=== PATIENT | female | born 1930 | race African-American/Black ===

== ENCOUNTER 2017-07-22 14:12 | Inpatient (IN) | payer OTHER ==
--- NOTE | 2017-07-22 15:48 | RAD REPORT ---
EXAM DESCRIPTION: RAD - Chest Single View - 07/22/2017 3:43 pm CLINICAL HISTORY: Chest pain. COMPARISON: 02/11/2015 FINDINGS: Portable technique limits examination quality. The lungs are mildly emphysematous but grossly clear. The heart is mildly enlarged in size. No displa nikita fractures. IMPRESSION: Mild COPD.
[2017-07-22 16:29] LABS: Absolute Lymphocytes (CBC) 0.7 K/uL (0.7-4.9); Absolute Monocytes 0.3 K/uL (0.1-1.3); Absolute Neutrophil 4.3 K/uL (1.8-8.0); Basophils % 0.5 % (0-1.3); Eosinophils % 0.6 % (0-4.4); Hematocrit 18.8 % (36.0-45.0); Lymphocytes % 13.9 % (15.3-44.8); MCH 31.3 pg (27.0-35.0); MCV 93.7 fL (80-100); MPV 9.1 fL (7.6-11.3); Monocytes % 5.1 % (3.3-12.3); RBC Red Blood Cell Count 2.01 M/uL (3.86-4.86)
[2017-07-22 16:44] LABS: Protime INR 1.04
[2017-07-22 16:56] LABS: Albumin 3.7 g/dL (3.2-5.5); Bilirubin Direct 0.1 mg/dL (0-0.2); Bilirubin Total 0.8 mg/dL (0.3-1.2); Magnesium 1.8 mg/dL (1.8-2.5); Protein, Total 7.1 g/dL (6.0-8.3)
[2017-07-22 17:06] LABS: Potassium 2.7 mEq/L (3.6-5.0)
--- NOTE | 2017-07-22 17:27 | EDPHYS ---
Physician Documentation [facility] Name: Erendira Graham Age: 86 yrs Sex: Female : 1930 Arrival Date: 07/22/2017 Time: 14:15 Bed 28 Private MD: ED Physician Loi Decker HPI: 07/22 16:59 This 86 yrs old Black Female presents to ER via Wheelchair with complaints of Weakness, wa Side Pain. 16:59 The patient presents to the emergency department with weakness of the entire body, wa generalized weakness, R sided flank pain. Onset: The symptoms/episode began/occurred 1 week(s) ago. Context: occurred at home, generalized. gradual onset. Associated signs and symptoms: Pertinent positives: weakness, Pertinent negatives: altered mental status, dizziness, fever, headache, neck stiffness, paresthesias, seizure, syncope. Severity of symptoms: At their worst the symptoms were moderate in the emergency department the symptoms are worse markedly. Patient's baseline: Neuro: alert and fully oriented, Motor: no deficits, Ambulation: walks with assist only, uses walker, Speech: normal. The patient has experienced similar episodes in the past. The patient has been recently seen by a physician: just came from dialysis. Historical: - Allergies: 14:38 Ciprofloxacin; aa5 14:38 PENICILLINS; aa5 14:38 Karlene; aa5 14:38 Talwin; aa5 - PMHx: 14:38 Diabetes - NIDDM; ESRD; Dialysis; Hypertension; CHF; aa5 - PSHx: 14:38 L arm fistula; Cholecystectomy; Carotid surgery; Kidney stents; aa5 - Immunization history:: Pneumococcal vaccine is up to date, Flu vaccine is up to date. - Social history:: Smoking status: Patient/guardian denies using tobacco. - Family history:: not pertinent. - Hospitalizations: : No recent hospitalization is reported. ROS: 17:13 Constitutional: Negative for fever, chills, and weight loss, Eyes: Negative for injury, wa pain, redness, and discharge, ENT: Negative for injury, pain, and discharge, Neck: Negative for injury, pain, and swelling, Cardiovascular: Negative for chest pain, palpitations, and edema, Respiratory: Negative for shortness of breath, cough, wheezing, and pleuritic chest pain, Back: Negative for injury and pain, : Negative for injury, bleeding, discharge, and swelling, MS/Extremity: Negative for injury and deformity, Skin: Negative for injury, rash, and discoloration, Neuro: Negative for headache, weakness, numbness, tingling, and seizure. 17:13 Abdomen/GI: Positive for R upper flank pain. 17:13 Neuro: Positive for weakness. 17:13 All other systems are negative. Exam: 17:14 Constitutional: This is a well developed, well nourished patient who is awake, alert, wa and in no acute distress. Head/Face: Normocephalic, atraumatic. Eyes: Pupils equal round and reactive to light, extra-ocular motions intact. Lids and lashes normal. Conjunctiva and sclera are non-icteric and not injected. Cornea within normal limits. Periorbital areas with no swelling, redness, or edema. ENT: Nares patent. No nasal discharge, no septal abnormalities noted. Tympanic membranes are normal and external auditory canals are clear. Oropharynx with no redness, swelling, or masses, exudates, or evidence of obstruction, uvula midline. Mucous membranes moist. Neck: Trachea midline, no thyromegaly or masses palpated, and no cervical lymphadenopathy. Supple, full range of motion without nuchal rigidity, or vertebral point tenderness. No Meningismus. Chest/axilla: Normal chest wall appearance and motion. Nontender with no deformity. No lesions are appreciated. Cardiovascular: Regular rate and rhythm with a normal S1 and S2. No gallops, murmurs, or rubs. Normal PMI, no JVD. No pulse deficits. Respiratory: Lungs have equal breath sounds bilaterally, clear to auscultation and percussion. No rales, rhonchi or wheezes noted. No increased work of breathing, no retractions or nasal flaring. Abdomen/GI: Soft, non-tender, with normal bowel sounds. No distension or tympany. No guarding or rebound. No evidence of tenderness throughout. Back: No spinal tenderness. No costovertebral tenderness. Full range of motion. Skin: Warm, dry with normal turgor. Normal color with no rashes, no lesions, and no evidence of cellulitis. MS/ Extremity: Pulses equal, no cyanosis. Neurovascular intact. Full, normal range of motion. Neuro: Awake and alert, GCS 15, oriented to person, place, time, and situation. Cranial nerves II-XII grossly intact. Motor strength 5/5 in all extremities. Sensory grossly intact. Cerebellar exam normal. Normal gait. Vital Signs: 14:38 BP 163 / 42; Pulse 72; Resp 14 S; Temp 98.5(TE); Pulse Ox 96% on R/A; Weight 69.85 kg aa5 (R); 15:31 BP 170 / 55; Pulse 72; Resp 18; Temp 97.9; Pulse Ox 98% on R/A; kr2 16:00 BP 181 / 51; Pulse 60; Resp 14; Pulse Ox 97% on R/A; lk1 16:30 BP 181 / 51; Pulse 68; Resp 14; Pulse Ox 98% on R/A; lk1 17:00 BP 183 / 53; Pulse 63; Resp 15; Pulse Ox 96% on R/A; lk1 17:30 BP 172 / 41; Pulse 70; Resp 15; Pulse Ox 95% on R/A; lk1 18:00 BP 195 / 55; Pulse 68; Resp 15; Pulse Ox 98% on R/A; lk1 18:30 BP 169 / 65; Pulse 74; Resp 15; Pulse Ox 96% on R/A; Pain 0/10; lk1 MDM: 15:01 Patient medically screened. fl 17:14 Data reviewed: vital signs, nurses notes. fl 17:15 Test interpretation: by ED physician or midlevel provider: EKG: HR 74. 1st Dreg AV wa block. mild ST depression noted in lateral leads. 17:17 Test interpretation: by ED physician or midlevel provider: noted with Cr 1.6 and GFR wa 37. elevated BNP. hypokalemia. anemia,. low platelets. 17:23 Special discussion: noted hypokalemic and anemic. needs transfusion. will consult her fl renal doc to arrange transfusion. 17:27 Test interpretation: by ED physician or midlevel provider: CXR: chronic interstitial wa scarring. Response to treatment: the patient's symptoms have mildly improved after treatment. Physician consultation: Kieran Guardado DO. 17:32 Admission orders: after a detailed discussion of the patient's condition and case, the fl admit orders are written by me. Other consultation: Dr. Pratt for admit. Special discussion: 1730 Hrs: spoke with Dr. Guardado, pt's renal doc. agreed to plan of transfuse 1 unit PRBCs. Next unit to be done at dialysis. 07/22 15:22 Order name: Basic Metabolic Panel; Complete Time: 17:16 fl 07/22 15:22 Order name: BNP; Complete Time: 17:16 07/22 15:22 Order name: CBC with Diff; Complete Time: 17:16 07/22 15:22 Order name: CPK; Complete Time: 17:17 07/22 15:22 Order name: LFT's; Complete Time: 17:17 07/22 15:22 Order name: Magnesium; Complete Time: 17:17 07/22 15:22 Order name: PT-INR; Complete Time: 17:07/22 15:22 Order name: Troponin (emerg Dept Use Only); Complete Time: 17:07/22 15:22 Order name: XRAY Chest (1 view); Complete Time: 17:17 fl 07/22 15:22 Order name: EKG; Complete Time: 15: fl 07/22 15:22 Order name: Cardiac monitoring; Complete Time: 15:44 fl 07/22 17:19 Order name: Type And Screen 07/22 15:22 Order name: EKG - Nurse/Tech; Complete Time: 15:44 fl 07/22 15:22 Order name: IV Saline Lock; Complete Time: 18:52 fl 07/22 15:22 Order name: Labs collected and sent; Complete Time: 18:52 fl 07/22 15:22 Order name: O2 Per Protocol; Complete Time: 15:44 fl 07/22 15:22 Order name: O2 Sat Monitoring; Complete Time: 15:44 fl Administered Medications: 18:25 Drug: Potassium Chloride 40 mEq Route: PO; lk1 19:07 Follow up: Response: No adverse reaction lk1 Disposition: 07/22/17 17:26 Hospitalization ordered by Noel Lucas for Inpatient Admission. Preliminary diagnosis are Weakness, Anemia, Hypokalemia. - Bed requested for Telemetry/MedSurg (Inpatient). - Status is Inpatient Admission. lk1 - Condition is Fair. - Problem is new. - Symptoms have improved. UTI on Admission? No Critical care time excluding procedures: 17:24 Critical care time: Bedside Care: 10 minutes, Consultation: 10 minutes, Family wa Intervention: 10 minutes. Total time: 30 minutes Signatures: Dispatcher [employer] EDLilliana Motta, RN RN aa5 Tita Pierce RN RN lk1 Loi Decker MD MD wa Botello, Elizabeth eb Corrections: (The following items were deleted from the chart) 18:31 17:26 Hospitalization Ordered by Noel Lucas MD for Inpatient Admission. Preliminary eb diagnosis is Weakness; Anemia; Hypokalemia. Bed requested for Telemetry/MedSurg (Inpatient). Status is Inpatient Admission. Condition is Fair. Problem is new. Symptoms have improved. UTI on Admission? No. fl 21:16 18:31 07/22/2017 17:26 Hospitalization Ordered by Noel Lucas MD for Inpatient lk1 Admission. Preliminary diagnosis is Weakness; Anemia; Hypokalemia. Bed requested for Telemetry/MedSurg (Inpatient). Status is Inpatient Admission. Condition is Fair. Problem is new. Symptoms have improved. UTI on Admission? No. eb
--- NOTE | 2017-07-22 17:27 | ER ---
Nurse's Notes [facility] Name: Erendira Graham Age: 86 yrs Sex: Female : 1930 Arrival Date: 07/22/2017 Time: 14:15 Bed 28 Private MD: Diagnosis: Weakness;Anemia;Hypokalemia Presentation: 07/22 14:34 Presenting complaint: Patient states: generalized weakness x 1 week ago. Pt also c/o aa5 pain to right flank. Pt's daughter states "she just finished dialysis and we came over here". Transition of care: patient was not received from another setting of care. Onset of symptoms was June 2017. Initial Sepsis Screen: Does the patient meet any 2 criteria? No. Patient's initial sepsis screen is negative. Does the patient have a suspected source of infection? No. Patient's initial sepsis screen is negative. 14:34 Method Of Arrival: Wheelchair aa5 14:34 Acuity: KEKE 3 aa5 21:20 Care prior to arrival: None. lk1 Historical: - Allergies: 14:38 Ciprofloxacin; aa5 14:38 PENICILLINS; aa5 14:38 Karlene; aa5 14:38 Talwin; aa5 - PMHx: 14:38 Diabetes - NIDDM; ESRD; Dialysis; Hypertension; CHF; aa5 - PSHx: 14:38 L arm fistula; Cholecystectomy; Carotid surgery; Kidney stents; aa5 - Immunization history:: Pneumococcal vaccine is up to date, Flu vaccine is up to date. - Social history:: Smoking status: Patient/guardian denies using tobacco. - Family history:: not pertinent. - Hospitalizations: : No recent hospitalization is reported. Screenin:05 Abuse screen: Denies threats or abuse. Denies injuries from another. Nutritional lk1 screening: No deficits noted. Tuberculosis screening: No symptoms or risk factors identified. Fall Risk Total Paris Fall Scale indicates High Risk Score (45 or more points). Fall prevention measures have been instituted. Side Rails Up X 2 Placed Close to Nursing Station Frequent Obs/Assessments Occuring Family Present and informed to notify staff if the need to leave the bedside As available patient and family educated on Fall Prevention Program and Strategies. Assessment: 16:07 General: Appears in no apparent distress. Behavior is calm, cooperative, appropriate lk1 for age. Pain: Complains of pain in left lateral anterior chest and abdomen Pain does not radiate. Pain currently is 6 out of 10 on a pain scale. Neuro: Level of Consciousness is awake, alert, obeys commands, Oriented to person, place, time, situation, Speech is normal, Facial symmetry appears normal. Cardiovascular: Heart tones S1 S2 present Capillary refill is brisk Patient's skin is warm and dry. Respiratory: Airway is patent Respiratory effort is even, unlabored, Respiratory pattern is regular, symmetrical. Respiratory: Breath sounds are clear bilaterally. GI: No signs and/or symptoms were reported involving the gastrointestinal system. : No signs and/or symptoms were reported regarding the genitourinary system. EENT: No signs and/or symptoms were reported regarding the EENT system. Derm: No signs and/or symptoms reported regarding the dermatologic system. Musculoskeletal: No signs and/or symptoms reported regarding the musculoskeletal system. Vital Signs: 14:38 BP 163 / 42; Pulse 72; Resp 14 S; Temp 98.5(TE); Pulse Ox 96% on R/A; Weight 69.85 kg aa5 (R); 15:31 BP 170 / 55; Pulse 72; Resp 18; Temp 97.9; Pulse Ox 98% on R/A; kr2 16:00 BP 181 / 51; Pulse 60; Resp 14; Pulse Ox 97% on R/A; lk1 16:30 BP 181 / 51; Pulse 68; Resp 14; Pulse Ox 98% on R/A; lk1 17:00 BP 183 / 53; Pulse 63; Resp 15; Pulse Ox 96% on R/A; lk1 17:30 BP 172 / 41; Pulse 70; Resp 15; Pulse Ox 95% on R/A; lk1 18:00 BP 195 / 55; Pulse 68; Resp 15; Pulse Ox 98% on R/A; lk1 18:30 BP 169 / 65; Pulse 74; Resp 15; Pulse Ox 96% on R/A; Pain 0/10; lk1 ED Course: 14:15 Patient arrived in ED. as 14:35 Triage completed. aa5 14:35 Arm band placed on. aa5 15:01 Loi Decker MD is Attending Physician. wa 15:17 Ttia Pierce, JONH is Primary Nurse. lk1 15:42 XRAY Chest (1 view) In Process Unspecified. EDMS 15:45 EKG done, by instrument and electrical technician. reviewed by Loi Decker MD. at1 16:02 Missed attempt(s): 22 gauge in left forearm. Bleeding controlled, band aid applied, lk1 catheter tip intact. 16:02 Missed attempt(s): 22 gauge in left antecubital area. Bleeding controlled, band aid lk1 applied, catheter tip intact. 16:09 Patient has correct armband on for positive identification. Placed in gown. Bed in low lk1 position. Call light in reach. Side rails up X2. Adult w/ patient. 16:20 Missed attempt(s): 22 gauge in right wrist. Bleeding controlled, band aid applied, iw catheter tip intact. 16:30 Initial lab(s) drawn, by me, sent to lab. Inserted saline lock: 20 gauge in right iw antecubital area, using aseptic technique. Blood collected. 17:25 Noel Lucas MD is Hospitalizing Provider. wa 21:19 No provider procedures requiring assistance completed. Patient admitted, IV remains in lk1 place. No redness/swelling at site. Administered Medications: 18:25 Drug: Potassium Chloride 40 mEq Route: PO; lk1 19:07 Follow up: Response: No adverse reaction lk1 Outcome: 17:26 Decision to Hospitalize by Provider. wa 21:16 Patient left the ED. lk1 21:20 Admitted to Med/surg lk1 21:20 Condition: good 21:20 Discharge instructions given to patient, family, Instructed on the need for admit, Demonstrated understanding of instructions. Signatures: Dispatcher [employer] EDMS Rosalie Crespo Irene, RN RN iw Lilliana Flanagan RN RN aa5 Elle humphrey, termination clerk EKG Tat1 Tita Pierce RN RN lk1 Loi Decker MD MD wa Reaves, Karey, RN RN kr2
--- NOTE | 2017-07-22 17:41 | EKG ---
Test Date: 2017-07-22 Test Time: 15:33:02 National Account Representative: ELZA/ MEASUREMENT RESULTS: Intervals: Rate: 74 ID: [id number] QRSD: 110 QT: 420 QTc: 466 Osprey: P: 74 ID: [id number] QRS: 51 T: 7 INTERPRETIVE STATEMENTS: Sinus rhythm with 1st degree AV block with premature atrial complexes Anteroseptal infarct, age undetermined Abnormal ECG Compared to ECG 02/13/2015 14:56:27 First degree AV block now present Myocardial infarct finding still present Electronically Signed On 07-22-17 17:40:16 CDT by Maksim Glass
[2017-07-22] MEDS ORDERED: POTASSIUM CL SA 10 MEQ TAB PO ONE (18:36)
[2017-07-22] MEDS ORDERED: ACETAMINOPHEN 500 MG TAB PO PRN (20:08)
[2017-07-22] MEDS ORDERED: ONDANSETRON 4 MG/2 ML VIAL IV PRN (20:08)
[2017-07-22] MEDS ORDERED: NA CHLORIDE 0.9% 1,000 ML IV PRN (21:23)
[2017-07-22] MEDS ORDERED: MANNITOL 25% 12.5 GM/50 ML VIAL IV PRN (21:23)
[2017-07-22] MEDS ORDERED: EPOETIN ALFA 10,000 UNIT/ML VIAL SQ ONE (21:27)
[2017-07-22] MEDS ORDERED: EPOETIN ALFA 10,000 UNIT/ML VIAL IV SCH (21:30)
[2017-07-22] MEDS ORDERED: GLUCAGON 1 MG/VIAL IM PRN (21:41)
[2017-07-22] MEDS ORDERED: D50W 25 GM/50 ML SYRINGE IV PRN (21:41)
--- NOTE | 2017-07-22 21:52 | P.HP ---
Certification for Inpatient Patient admitted to: Inpatient With expected LOS: >2 Midnights Practitioner: I am a practitioner with admitting privileges, knowledge of patient current condition, hospital course, and medical plan of care. Services: Services provided to patient in accordance with Admission requirements found in Title 42 Section 412.3 of the Code of Federal Regulations Patient History Date of Service: 07/22/17 Reason for admission: acute on chronic anemia History of Present Illness: Ms Graham is an 86 years old woman with history of DM II, ESRD on HD, chronic anemia, HTN, renal stenosis, who start about a week ago with progressive weakness. She get SOB with light activity. She is also complaining of right flank pain. She denied any fever, chills or diaphoretic episodes. No history of chest pain, nausea, vomiting, or diarrhea. Lab work was significantly abnormal in ED. Hgb 6.3 mg/dl. potassium 2.7. The patient denied as well black or bloody stools. Allergies ciprofloxacin Allergy (Verified 02/07/15 21:53) Rash fexofenadine Allergy (Verified 02/07/15 21:53) Rash gatifloxacin Allergy (Verified 02/07/15 21:53) Hives/Rash Penicillins Allergy (Verified 02/07/15 21:53) Hives/Rash pentazocine [From Talwin] Allergy (Unverified 07/22/17 21:22) Unknown Home Medications: Albuterol Inhaler [Ventolin Inhaler*] 2 puff IH Q4H PRN 02/08/15 Aspirin [Aspirin EC 81 MG] 81 mg PO DAILY 02/08/15 Atorvastatin Calcium [Lipitor] 80 mg PO BEDTIME 02/08/15 Calcium Carbonate [Tums Regular*] 1,000 mg PO BID 02/08/15 Carvedilol [Coreg*] 12.5 mg PO BID 02/08/15 Clopidogrel Bisulfate [Plavix*] 75 mg PO DAILY 02/08/15 Esomeprazole Magnesium [Nexium] 20 mg PO DAILY 02/08/15 Folic Acid/Vitamin B Comp W-C [Nephro-Xavier Tablet] 0.8 mg PO DAILY 02/08/15 Furosemide [Lasix*] 40 mg PO BID 02/08/15 Hydralazine HCl [Apresoline] 100 mg PO TID 02/08/15 Isosorbide Mononitrate [Isosorbide Mononitrate ER] 60 mg PO DAILY 02/08/15 Megestrol [Megace*] 400 mg PO DAILY 02/08/15 Vit/Fe Ps Cmplx/FA [Niferex-Pn Forte Tablet] 1 tab PO DAILY 02/08/15 Sertraline [Zoloft*] 50 mg PO DAILY 02/08/15 Sitagliptin Phosphate [Januvia*] 100 mg PO DAILY 02/08/15 Docusate [Colace Cap*] 100 mg PO BID #60 cap 02/19/15 Prednisone [Prednisone*] 20 mg PO DAILY #30 tab 02/19/15 Pregabalin [Lyrica*] 50 mg PO BID #60 cap 02/19/15 Losartan Potassium [Cozaar] 50 mg PO BID #60 tablet 02/20/15 Nifedipine Xl [Procardia XL*] 90 mg PO BID #60 tab 02/20/15 Terazosin HCl [Hytrin] 2 mg PO BID #60 cap 02/20/15 - Past Medical/Surgical History Diabetic: Yes -: DEPRESSION -: CHRONIC KIDNEY DISEASE ON HD -: CAD -: MALIGNANT HYPERTENSION -: HYPERLIPIDEMIA -: AORTIC STENOSIS -: RENAL ARTERY STENOSIS -: STENT PLACEMENT -: gall bladder removed -: R kidney stent placement - Family History Family History: Reviewed- Non-Contributory - Social History Smoking Status: Never smoker Alcohol use: No CD- Drugs: No Caffeine use: Yes Place of Residence: Home Review of Systems 10-point ROS is otherwise unremarkable Physical Examination - Vital Signs Temperature: 97.9 F Blood Pressure: 169/65 Pulse: 74 Respirations: 15 - Physical Exam General: Alert, In no apparent distress, Other (pale) HEENT: Atraumatic, PERRLA, Mucous membr. moist/pink, EOMI, Sclerae nonicteric Neck: Supple, 2+ carotid pulse no bruit, No LAD, Without JVD or thyroid abnormality Respiratory: Clear to auscultation bilaterally, Normal air movement Cardiovascular: Regular rate/rhythm, Normal S1 S2, Systolic murmur Gastrointestinal: Normal bowel sounds, No tenderness Musculoskeletal: No tenderness Integumentary: No rashes Neurological: Normal speech, Normal strength at 5/5 x4 extr, Normal tone, Normal affect Lymphatics: No axilla or inguinal lymphadenopathy - Studies Laboratory Data (last 24 hrs) 07/22/17 16:20: PT 12.3, INR 1.04 07/22/17 16:20: WBC 5.3, Hgb 6.3 L*, Hct 18.8 L*, Plt Count 148 L 07/22/17 16:20: B-Natriuretic Peptide 747 H 07/22/17 16:20: Sodium 134 L, Potassium 2.7 L*, BUN 8, Creatinine 1.61 H, Glucose 106, Magnesium 1.8, Total Bilirubin 0.8, AST 36, ALT 28, Alkaline Phosphatase 71 Assessment and Plan - Problems (Diagnosis) (1) Anemia in ESRD (end-stage renal disease) Current Visit: No Status: Acute (2) Dyslipidemia Onset Date: 02/11/15 Current Visit: No Status: Acute (3) ESRD on hemodialysis Onset Date: 02/11/15 Current Visit: No Status: Acute (4) HTN (hypertension) Current Visit: No Status: Acute Qualifiers: Hypertension type: secondary to other renal disorders Qualified Code(s): I15.1 - Hypertension secondary to other renal disorders; N28.89 - Other specified disorders of kidney and ureter (5) Renal artery stenosis Onset Date: 02/11/15 Current Visit: No Status: Acute (6) Hypokalemia Current Visit: Yes Status: Acute - Plan The patient will be admitted to the hospital due to acute on chronic anemia related to renal disease. Will transfuse at least 2 UNITS tomorrow while she is on HD. Will consult Dr Guardado, resume her BP medication. - Advance Directives Does patient have a Living Will: No Does patient have a Durable POA for Healthcare: No - Code Status/Comfort Care Code Status Assessed: Yes Code Status: Full Code
[2017-07-22] MEDS: HYDRALAZINE HCL 20 MG/ML VIAL IV PRN (21:58)
[2017-07-22] MEDS ORDERED: ALBUMIN HUMAN 25% 50 ML IV SCH (22:00)
[2017-07-22] MEDS: TRAMADOL HCL 50 MG TAB PO PRN (23:58)
[2017-07-23] MEDS ORDERED: MELATONIN 5 MG TABLET PO ONE
[2017-07-23] MEDS: TRAMADOL HCL 50 MG TAB PO PRN ×4 (05:39→23:46)
[2017-07-23] MEDS: HYDRALAZINE HCL 20 MG/ML VIAL IV PRN ×2 (05:40→17:57)
[2017-07-23 05:46] LABS: Absolute Lymphocytes (CBC) 0.5 K/uL (0.7-4.9); Absolute Monocytes 0.4 K/uL (0.1-1.3); Absolute Neutrophil 6.2 K/uL (1.8-8.0); Basophils % 0.5 % (0-1.3); Eosinophils % 0.2 % (0-4.4); Lymphocytes % 7.3 % (15.3-44.8); MCV 93.9 fL (80-100); MPV 9.6 fL (7.6-11.3); Monocytes % 5.6 % (3.3-12.3); RBC Red Blood Cell Count 1.91 M/uL (3.86-4.86)
[2017-07-23 06:06] LABS: Bilirubin Total 0.6 mg/dL (0.3-1.2); Potassium 3.3 mEq/L (3.6-5.0); Protein, Total 5.9 g/dL (6.0-8.3)
[2017-07-23] MEDS ORDERED: MAGNESIUM SULFATE 1 gm IVPB 1 GM/100 ML BAG IV ONE (07:00)
[2017-07-23 07:08] LABS: Blood Morphology Comment NOT SEEN (NOT SEEN); Platelet Estimate ADEQ; Urine White Blood Cell Casts OK
[2017-07-23] MEDS ORDERED: MELATONIN 5 MG TABLET PO PRN (07:15)
[2017-07-23] MEDS: INSULIN -REGULAR HUMAN 50 UNIT/0.5 ML ML SQ SCH ×4 (07:30→21:00)
[2017-07-23] MEDS ORDERED: CARVEDILOL 25 MG TAB PO SCH (09:00)
[2017-07-23] MEDS: DOXAZOSIN 4 MG TAB PO SCH ×2 (09:00→21:42)
[2017-07-23] MEDS: HYDRALAZINE HCL 25 MG TABLET PO SCH ×4 (09:00→21:42)
[2017-07-23] MEDS ORDERED: POTASSIUM 25 MEQ EFFERV TAB PO ONE (09:00)
[2017-07-23] MEDS: LOSARTAN POTASSIUM 50 MG TABLET PO SCH ×2 (09:00→21:43)
[2017-07-23] MEDS: CARVEDILOL 25 MG TAB PO SCH ×2 (09:00→21:43)
[2017-07-23] MEDS: VITAMIN D 5,000 UNIT CAP PO SCH (09:41)
--- NOTE | 2017-07-23 09:41 | RAD REPORT ---
EXAM DESCRIPTION: CT - Abdomen Pelvis Wo Contrast - 07/22/2017 10:16 pm CLINICAL HISTORY: Abdominal pain COMPARISON: None TECHNIQUE: Computed axial tomography of the abdomen and pelvis was obtained. IV and oral contrast we re not requested. All CT scans are performed using dose optimization technique as appropriate and may include automated exposure control or mA/KV adjustment according to patient size. FINDINGS: The evaluation of solid organs, vessels and bowel is limited secondary to the lack of con trast administration. Small bilateral pleural effusions are present. The liver, spleen, pancreas and adrenals appear grossl y normal Many cysts are present within the kidneys bilaterally. Some are hemorrhagic. The largest measures 2 c entimeters. There is no evidence of diverticulitis. Spondylosis involves lumbar spine resulting in spinal stenosi s A a small amount of ascites is present. Diffuse edema is present throughout the subcutaneous tissues. 2 centimeter calcified uterine fibroid is present IMPRESSION: Polycystic kidneys. Anasarca
[2017-07-23] MEDS: CLOPIDOGREL 75 MG TABLET PO SCH (09:42)
[2017-07-23] MEDS: ASPIRIN EC 81 MG TAB PO SCH (09:42)
[2017-07-23] MEDS: CALCITROL 0.25 MCG CAP PO SCH (09:42)
[2017-07-23] MEDS: ISOSORBIDE MONO SR 60 MG TAB PO SCH (09:46)
--- NOTE | 2017-07-23 12:06 | P.PN ---
Subjective Date of Service: 07/23/17 Chief Complaint: acute on chronic anemia Subjective: No new changes (still feels very weak. planned trasnfusion with HD today) Review of Systems 10-point ROS is otherwise unremarkable Physical Examination - Vital Signs Temperature: 97.4 F Blood Pressure: 118/58 Pulse: 77 Respirations: 18 Pulse Ox (%): 100 - Physical Exam General: Alert, In no apparent distress, Oriented x3 HEENT: Atraumatic, Normocephalic, PERRLA Neck: JVD not distended, No Thyromegaly, No LAD Respiratory: Clear to auscultation bilaterally, Normal air movement Cardiovascular: No edema, Normal pulses, Regular rate/rhythm, Normal S1 S2, Systolic murmur Gastrointestinal: Normal bowel sounds, Soft and benign, Non-distended, W/out hepatosplenomegaly, No tenderness, No masses, No rebound, No guarding Neurological: Normal speech, Normal strength at 5/5 x4 extr, Normal tone - Studies Laboratory Data (last 24 hrs) 07/22/17 16:20: PT 12.3, INR 1.04 07/22/17 16:20: WBC 5.3, Hgb 6.3 L*, Hct 18.8 L*, Plt Count 148 L 07/22/17 16:20: B-Natriuretic Peptide 747 H 07/22/17 16:20: Sodium 134 L, Potassium 2.7 L*, BUN 8, Creatinine 1.61 H, Glucose 106, Magnesium 1.8, Total Bilirubin 0.8, AST 36, ALT 28, Alkaline Phosphatase 71 Assessment And Plan - Current Problems (Diagnosis) (1) Anemia in ESRD (end-stage renal disease) Current Visit: No Status: Acute Plan: plan to transfuse 2 units of prbc with HD today repeat labs in the am (2) Diabetic peripheral neuropathy Onset Date: 02/11/15 Current Visit: No Status: Acute (3) ESRD on hemodialysis Onset Date: 02/11/15 Current Visit: No Status: Acute Plan: Renal consulted scheduled for HD this am continue home medications (4) HTN (hypertension) Current Visit: No Status: Acute Plan: continue home medications this am Qualifiers: Hypertension type: secondary to other renal disorders Qualified Code(s): I15.1 - Hypertension secondary to other renal disorders; N28.89 - Other specified disorders of kidney and ureter Physician Review: Patient Assessed, Agree with Above Assessment and Plan Time Spent Managing PTS Care (In Minutes): 25
[2017-07-23] MEDS ORDERED: NA CHLORIDE 0.9% 250 ML ONE (14:16)
[2017-07-23 19:43] LABS: Hematocrit 29.9 % (36.0-45.0)
[2017-07-24 01:19] VITALS: BMI 22.8
[2017-07-24 01:22] VITALS: O2SAT 97
[2017-07-24 06:19] LABS: Absolute Lymphocytes (CBC) 0.7 K/uL (0.7-4.9); Absolute Monocytes 0.6 K/uL (0.1-1.3); Absolute Neutrophil 7.8 K/uL (1.8-8.0); Basophils % 0.5 % (0-1.3); Eosinophils % 0.4 % (0-4.4); Hematocrit 29.6 % (36.0-45.0); Lymphocytes % 8.1 % (15.3-44.8); MCV 90.1 fL (80-100); MPV 9.2 fL (7.6-11.3); Monocytes % 6.2 % (3.3-12.3); RBC Red Blood Cell Count 3.28 M/uL (3.86-4.86)
[2017-07-24 06:25] LABS: Magnesium 1.9 mg/dL (1.8-2.5); Potassium 3.9 mEq/L (3.6-5.0)
[2017-07-24 06:53] LABS: Urine Appearance CLOUDY; Urine Blood NEGATIVE (NEG); Urine Glucose NEGATIVE (NEG); Urine Protein 3+ (NEG); Urine Urobilinogen 0.2 mg/dL (0.2-1.0); Urine pH 6.5 (5.0-7.0)
[2017-07-24 06:54] LABS: Urine Microscopic Reflex ORDER UMIC
[2017-07-24 06:55] LABS: Urine Color AMBER
[2017-07-24 07:03] LABS: Urine Bilirubin NEGATIVE (NEG)
[2017-07-24 07:30] LABS: Urine Culture Reflex Order REFLEXED
[2017-07-24] MEDS: INSULIN -REGULAR HUMAN 50 UNIT/0.5 ML ML SQ SCH ×2 (07:30→11:30)
[2017-07-24 07:31] LABS: Urine Bacteria >50 /HPF (<20); Urine RBC <5 /HPF (NONE SEEN); Urine Yeast MANY (NONE SEEN); Urine Yeast with Hyphae PRESENT
[2017-07-24] MEDS: DOXAZOSIN 2 MG TAB ONE ×2 (08:25→08:41)
[2017-07-24] MEDS: CLOPIDOGREL 75 MG TABLET PO SCH (08:41)
[2017-07-24] MEDS: HYDRALAZINE HCL 25 MG TABLET PO SCH (08:42)
[2017-07-24] MEDS: ASPIRIN EC 81 MG TAB PO SCH (08:42)
[2017-07-24] MEDS: VITAMIN D 5,000 UNIT CAP PO SCH (08:42)
[2017-07-24] MEDS: TRAMADOL HCL 50 MG TAB PO PRN ×2 (08:42→14:04)
[2017-07-24] MEDS: LOSARTAN POTASSIUM 50 MG TABLET PO SCH (08:42)
[2017-07-24] MEDS: ISOSORBIDE MONO SR 60 MG TAB PO SCH (08:42)
[2017-07-24] MEDS: CALCITROL 0.25 MCG CAP PO SCH (08:43)
[2017-07-24] MEDS: CARVEDILOL 25 MG TAB PO SCH (08:43)
[2017-07-24] MEDS: DOXAZOSIN 4 MG TAB PO SCH (08:48)
--- NOTE | 2017-07-24 12:11 | P.DS ---
Admission Date: 07/22/17 Discharge Date: 07/24/17 Disposition: ROUTINE DISCHARGE Discharge Condition: GOOD Reason for Admission: acute on chronic anemia - Problems (1) Anemia in ESRD (end-stage renal disease) Current Visit: No Status: Acute (2) Diabetic peripheral neuropathy Onset Date: 02/11/15 Current Visit: No Status: Acute (3) ESRD on hemodialysis Onset Date: 02/11/15 Current Visit: No Status: Acute (4) HTN (hypertension) Current Visit: No Status: Acute Qualifiers: Hypertension type: secondary to other renal disorders Qualified Code(s): I15.1 - Hypertension secondary to other renal disorders; N28.89 - Other specified disorders of kidney and ureter Brief History of Present Illness: Ms Graham is an 86 years old woman with history of DM II, ESRD on HD, chronic anemia, HTN, renal stenosis, who start about a week ago with progressive weakness. She get SOB with light activity. She is also complaining of right flank pain. She denied any fever, chills or diaphoretic episodes. No history of chest pain, nausea, vomiting, or diarrhea. Lab work was significantly abnormal in ED. Hgb 6.3 mg/dl. potassium 2.7. The patient denied as well black or bloody stools Hospital Course: Patient was seen y neurologist.She was transfused 2 units of prbc during HD.Her hemoglobin went up to 10.Patient reported an improvement symptomatically.She was discharged home with her daughter in a stable condition to resume her usual HD session as an outpatient. Vital Signs/Physical Exam: Temp Pulse Resp BP Pulse Ox 99.9 F 76 16 182/70 H 100 07/24/17 08:00 07/24/17 08:00 07/24/17 08:00 07/24/17 08:00 07/24/17 08:00 General: Alert, In no apparent distress, Oriented x3 HEENT: Atraumatic, Normocephalic, PERRLA Respiratory: Clear to auscultation bilaterally, Normal air movement Cardiovascular: No edema, Normal pulses, Regular rate/rhythm, Normal S1 S2, Systolic murmur Gastrointestinal: Normal bowel sounds, Soft and benign, W/out hepatosplenomegaly , No ascites, No tenderness, No masses, No rebound, No guarding Neurological: Normal gait, Normal strength at 5/5 x4 extr, Normal tone, Sensation intact Laboratory Data at Discharge: WBC 9.2 K/uL (4.3-10.9) D 07/24/17 05:50 Hgb 10.2 g/dL (12.0-15.0) L 07/24/17 05:50 Hct 29.6 % (36.0-45.0) L 07/24/17 05:50 Plt Count 131 K/uL (152-406) L 07/24/17 05:50 PT 12.3 SECONDS (9.5-12.5) 07/22/17 16:20 INR 1.04 07/22/17 16:20 Sodium 137 mEq/L (135-145) 07/24/17 05:50 Potassium 3.9 mEq/L (3.6-5.0) 07/24/17 05:50 BUN 13 mg/dL (6-20) 07/24/17 05:50 Creatinine 2.41 mg/dL (0.44-1.00) H 07/24/17 05:50 Glucose 113 mg/dL (65-120) 07/24/17 05:50 Magnesium 1.9 mg/dL (1.8-2.5) 07/24/17 05:50 Total Bilirubin 0.6 mg/dL (0.3-1.2) 07/23/17 05:05 AST 34 IU/L (10-42) 07/23/17 05:05 ALT 24 IU/L (10-60) 07/23/17 05:05 Alkaline Phosphatase 65 IU/L (42-121) 07/23/17 05:05 B-Natriuretic Peptide 747 pg/ml (<=100) H 07/22/17 16:20 Home Medications: Aspirin [Aspirin EC 81 MG] 81 mg PO DAILY 02/08/15 Atorvastatin Calcium [Lipitor] 80 mg PO BEDTIME 02/08/15 Calcium Carbonate [Tums Regular*] 1,000 mg PO BID 02/08/15 Clopidogrel Bisulfate [Plavix*] 75 mg PO DAILY 02/08/15 Hydralazine HCl [Apresoline] 100 mg PO TID 02/08/15 Isosorbide Mononitrate [Isosorbide Mononitrate ER] 60 mg PO DAILY 02/08/15 Sertraline [Zoloft*] 50 mg PO DAILY 02/08/15 Docusate [Colace Cap*] 100 mg PO BID #60 cap 02/19/15 Nifedipine Xl [Procardia XL*] 90 mg PO BID #60 tab 02/20/15 Acetaminophen [Tylenol Extra Strength] 1 tab PO PRN 07/22/17 Cholecalciferol (Vitamin D3) [Vitamin D3] 1 cap PO Q48H 07/22/17 Clonidine HCl [Catapres*] 0.1 mg PO BID 07/22/17 Codeine/APAP [Tylenol #3*] 1 tab PO Q6H PRN 07/22/17 Doxazosin Mesylate [Cardura] 8 mg PO DAILY 07/22/17 Melatonin 5 mg PO BEDTIME PRN PRN 07/22/17 Ramipril [Altace] 10 mg PO BEDTIME 07/22/17 Vit B Comp&C/Folic Acid/Vit D3 [Dialyvite 800 Plus D Wafer] 1 tab PO BEDTIME 07/06 traMADol HCL [Ultram*] 50 mg PO Q6H PRN #30 tab 07/24/17 New Medications: traMADol HCL [Ultram*] 50 mg PO Q6H PRN #30 tab PRN Reason: Pain Patient Discharge Instructions: Follow up with scheduled Hemodialysis. Return to the ER for new or worsening symptoms Diet: Low sodium Activity: Ad nayeli Physician Review: Patient Assessed, Agree with Above Assessment and Plan Time spent managing pt's care (in minutes): 25
[2017-07-24 14:08] VITALS: BP 156/60; TEMP 99.6
== END 2017-07-24 14:12 | disposition home or self-care (01) | DRG 682 ==
LOC: ER 14:12 → ERHOLD 17:36 → 2ND 19:36
PROVIDERS: ADMIT Internal Medicine; ATTEND Internal Medicine
PROC: 30233N1 Transfusion of Nonautologous Red Blood Cells into Peripheral Vein, Percutaneous Approach (ICD-10-PCS; principal; 2017-07-23)
PROC: 5A1D70Z Performance of Urinary Filtration, Intermittent, Less than 6 Hours Per Day (ICD-10-PCS; 2017-07-23)
DX: I12.0 Hypertensive chronic kidney disease with stage 5 chronic kidney disease or end stage renal disease (principal); N18.6 End stage renal disease; E11.22 Type 2 diabetes mellitus with diabetic chronic kidney disease; D63.1 Anemia in chronic kidney disease; E11.42 Type 2 diabetes mellitus with diabetic polyneuropathy; E78.5 Hyperlipidemia, unspecified; I70.1 Atherosclerosis of renal artery; Z88.0 Allergy status to penicillin; Z79.82 Long term (current) use of aspirin
CPT/HCPCS: 36415; 71045; 74176; 80048; 80053; 80076; 81003; 81015; 82550; 82962; 83735; 83880; 84132; 84484; 85014; 85018; 85025; 85610; 86850; 86900; 86901; 87086; 87088; 90935; 93005; 99285; J0360; P9016; Q4081

== ENCOUNTER 2017-11-25 06:58 | Emergency (ER) | payer OTHER ==
--- OUTSIDE RECORDS SUMMARY | 2017-11-25 07:00 | XMS REPORT | Clinical Summary ---
:1930 Author Organization [facility] Address [address] [place] [id number] Care Team Providers Name Role Phone Leonid Marie MD Primary Care Provider Allergies Active Allergy Reactions Severity Noted Date Comments Fexofenadine Other (See Comments) 09/25/2015 Karlene - "makes her sick" per pt daughter Ciprofloxacin Other (See Comments) 09/25/2015 Ciprofloxacin - unknown reaction per pt and pt daughter Gatifloxacin 09/25/2015 Penicillin G Other (See Comments) 09/25/2015 Penicillin - unknown per pt and pt daughter Current Medications Prescription Sig. Disp. Refills Start Date End Date Status aspirin (ECOTRIN) 81 MG Take 81 mg by mouth Active enteric coated tablet daily. atorvastatin (LIPITOR) 80 Take 80 mg by mouth Active MG tablet daily. carvedilol (COREG) 25 MG Take 25 mg by mouth Active tablet 2 (two) times a day with meals. clopidogrel (PLAVIX) 75 Take 75 mg by mouth Active mg tablet daily. docusate sodium (COLACE) Take 100 mg by Active 100 MG capsule mouth 2 (two) times a day. hydrALAZINE (APRESOLINE) Take 100 mg by Active 100 MG tablet mouth 3 (three) times a day. isosorbide mononitrate Take 60 mg by mouth Active (IMDUR) 60 MG 24 hr daily. tablet sitaGLIPtin (JANUVIA) 100 Take 100 mg by Active MG tablet mouth daily. losartan (COZAAR) 100 MG Take 60 mg by mouth Active tablet daily. megestrol (MEGACE) 40 MG Take 40 mg by mouth Active tablet daily. FOLIC ACID/VIT BCOMP,C Take 1 tablet by Active (NEPHRO-FRANK ORAL) mouth daily. NIFEdipine XL (PROCARDIA Take 90 mg by mouth Active XL) 90 MG 24 hr tablet 2 (two) times a day. sertraline (ZOLOFT) 50 MG Take 50 mg by mouth Active tablet daily. Active Problems Not on file Social History Tobacco Use Types Packs/Day Years Used Date Never Smoker Smokeless Tobacco: Never Used Alcohol Use Drinks/Week oz/Week Comments No Sex Assigned at Date Recorded Not on file Last Filed Vital Signs Not on file Plan of Treatment Health Maintenance Due Date Last Done Comments SHINGRIX VACCINE (#1) 1980 ZOSTER VACCINE 1990 PNEUMOCOCCAL POLYSACCHARIDE VACCINE AGE 65 AND OVER 09/27/1995 PNEUMOCOCCAL-13 09/27/1995 INFLUENZA VACCINE 10/19/2017 Results Not on fileafter 11/24/2016 Insurance Payer Benefit Plan / Group Subscriber ID Type Phone Address MEDICARE MEDICARE PART A AND B xxxxxxxxxx Medicare [place], [place] [employer] PPO OPEN CHOICE xxxxxxxxxx PPO
--- OUTSIDE RECORDS SUMMARY | 2017-11-25 07:01 | XMS REPORT | Summary of Care ---
:1930 Author Organization [facility] Address [address] [place] [address]- Encounter [facility](FIN) [phone] Date(s): 04/21/17 - 04/29/[address] [phone]- [phone] Encounter Diagnosis Heart failure, unspecified (Final) - Heart failure, unspecified (Final) - Hypertensive heart and chronic kidney disease with heart failure and with stage 5 chronic kidney disease, or end stage renal disease (Final) - 05/06/17 Acute respiratory failure with hypoxia (Final) - End stage renal disease (Final) - Acute on chronic diastolic (congestive) heart failure (Final) - Type 2 diabetes mellitus with diabetic chronic kidney disease (Final) - 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) - Patient's noncompliance with other medical treatment and regimen (Final) - Hypertensive urgency (Final) - Anemia in chronic kidney disease (Final) - Other malaise (Final) - Personal history of nicotine dependence (Final) - Discharge Disposition: Home Care with Home Health Attending Physician: Gregg Sandra MD Admitting Physician: Gregg Sandra MD Vital Signs Most recent to oldest 1 2 3 [Reference Range]: Height 165.1 cm 165.1 cm 165.1 cm (04/22/17 12:08 AM) (04/21/17 11:02 PM) (04/21/17 11:01 PM) Current Weight 68.5 kg (04/22/17 2:07 AM) Temperature Oral [96.4-99.1 98.4 DegF 97.8 DegF 98.4 DegF DegF] (04/29/17 3:18 PM) (04/29/17 11:26 AM) (04/29/17 7:39 AM) Blood Pressure [90-140/60-90 173/50 mmHg 176/50 mmHg 159/75 mmHg mmHg] *HI* *HI* *HI* (04/29/17 4:48 PM) (04/29/17 3:18 PM) (04/29/17 11:26 AM) Respiratory Rate [14-20 BRMIN] 17 BRMIN 16 BRMIN 16 BRMIN (04/29/17 3:18 PM) (04/29/17 11:26 AM) (04/29/17 8:33 AM) Peripheral Pulse Rate [60-100 66 bpm 57 bpm 57 bpm bpm] (04/29/17 4:48 PM) *LOW* *LOW* (04/29/17 3:18 PM) (04/29/17 11:26 AM) Weight 68.5 kg 68.5 kg (04/22/17 12:08 AM) (04/21/17 11:02 PM) Body Mass Index 25.13 m2 25.13 m2 (04/22/17 12:08 AM) (04/21/17 11:02 PM) Problem List Condition Effective Dates Status Health Status Informant Abnormal cytology findings1 10/18/11 Active Benign hypertension(Confirmed)2 Active Constipation3 Active Diabetes mellitus4 Active Gastroesophageal reflux disease5 08/28/12 Active Hip pain6 01/03/13 Active Hypercholesterolemia7 Active Impaired glucose tolerance8 Active Iron deficiency anemia9 12/27/12 Active Long-term drug ebrdkho12 11/01/11 Active Loss of 12/27/12 Active Lung mass12 05/03/12 Active Malaise and zzbolhe18 11/01/11 Active Osteoarthritis of knee14 01/05/12 Active Thyroid upnbep64 05/03/12 Active 1Data migrated from [employer] on 08/17/14.2Data migrated from [employer] on 08/17/14.3Data migrated from [employer] on 08/17/14.4Data migrated from [employer] on 08/17/14.5Data migrated from [employer] on 08/17/14.6Data migrated from [employer] on 08/17/14.7Data migrated from [employer] on 08/17.8Data migrated from [employer] on 08/17/14.9Data migrated from [employer] on 08/17/14.10Data migrated from [employer] on 08/17/14.11Data migrated from [employer] on 08/17/14.12Data migrated from [employer] on .13Data migrated from [employer] on 08/17/14.14Data migrated from [employer] on 08/17/14.15Data migrated from [employer] on 08/17/14. Allergies, Adverse Reactions, Alerts Substance Reaction Severity Status penicillins1 Active diazepam2 Active fexofenadine3 Active gatifloxacin4 Active Tequin Active DULoxetine5 Active 1Data migrated from [employer] on 10/17/14. Originally documented as PENICILLIN.2Data migrated from [employer] on 07/18/14. Originally documented as VALIUM.3Data migrated from [employer] on 07/18/14. Originally documented as FANY ALLERGY.4Data migrated from [employer] on 07/18/14. Originally documented as TEQUIN.5Data migrated from [employer] on 07/18/14. Originally documented as CYMBALTA. Medications acetaminophen 650 mg, 2 tab, Route: PO, Drug form: TAB, Q4H, Dosing Weight 68.5, kg, PRN Pain 1-3/Temp > 100.4 F, Start date: 04/22/17 1:26:00 [employer], Duration: 30 day, Stop date: 05/22/17 1:25:00 [employer]IGAR[employer] Notes: Do not exceed 4 gm/day. (Same as: Tylenol) Start Date: 04/22/17 Stop Date: 04/29/17 Status: Discontinuedalbumin human 25% intravenous solution 25 gm, 100 mL, Route: IVPB, Drug form: INJ, ONCE, Dosing Weight 68.5, kg, PRN Dialysis, Priority: NOW, Start date: 04/25/17 7:44:00 [employer]AR[employer] Notes: Lot #: Mfg: (Same as: Plasbumin-25)"blood product derivative"WASTE: F/P - Red; E -Red MEDICATION WASTE Product Size: 25 gmProduct Wasted: ___ gm Start Date: 04/25/17 Stop Date: 04/29/17 Status: Discontinuedaspirin 81 mg, 1 tab, Route: PO, Drug form: ECTAB, Daily, Dosing Weight 68.5, kg, Start date: 04/22/17 9:00:00 [employer]IGAR[employer], Duration: 30 day, Stop date: 05/21/17 9:00:00 [employer]IGAR[employer] P[employer] Notes: Do not crush or chew.(Same As: Ecotrin) Start Date: 04/22/17 Stop Date: 04/29/17 Status: Discontinuedaspirin 81 mg, PO, QAM, 0 Refill(s) Start Date: 04/22/17 Status: OrderedcloNIDine 0.1 mg, 1 tab, Route: PO, Drug form: TAB, Q12H, Dosing Weight 68.5, kg, Start date: 04/26/17 9:00:00CST, Duration: 30 day, Stop date: 05/25/17 21:00:00 [employer]IGAR[employer] Notes: (Same As: Catapres) Start Date: 04/26/17 Stop Date: 04/29/17 Status: DiscontinuedcloNIDine 0.1 mg oral tablet 0.2 mg=2 tab, PO, BID, # 30 tab, 0 Refill(s), Pharmacy: [facility]/pharmacy #[id number] Start Date: 04/29/17 Status: OrderedcloNIDine 0.1 mg oral tablet 0.2 mg, 2 tab, Route: PO, Drug form: TAB, BID, Dosing Weight 68.5, kg, Start date: 04/29/17 17:00:00CST, Duration: 30 day, Stop date: 05/29/17 9:00:00 CDT Notes: (Same As: Catapres) Start Date: 04/29/17 Stop Date: 04/29/17 Status: DiscontinuedcloNIDine 0.1 mg/24 hr transdermal film, extended release 1 patch, Route: TOP, Drug Form: ERFILM, Dosing Weight 68.5, kg, Q7D, Start date : 04/29/17 5:00:00 [employer], Duration: 30 day, Stop date: 05/27/17 9:00:00 [employer]IGAR[employer] Notes: Patch delivers 0.1 mg/24 hours; Patch is applied weekly. "Remove old patch before application of new patch" (Same As: [id number]) Start Date: 04/29/17 Stop Date: 04/29/17 Status: DiscontinuedDextrose 50% Syringe 12.5 gm, 25 mL, Route: IVP, Drug Form: INJ, Dosing Weight 68.5, kg, PRN, PRN Blood Glucose Results, Start date: 04/22/17 1:43:00 [employer], Duration: 30 day, Stop date: 05/22/17 1:42:00 [employer]IGAR[employer] Start Date: 04/22/17 Stop Date: 04/29/17 Status: DiscontinuedDextrose 50% Syringe 25 gm, 50 mL, Route: IVP, Drug Form: INJ, Dosing Weight 68.5, kg, PRN, PRN Blood Glucose Results, Start date: 04/22/17 1:43:00 CIGAR[employer] P[employer], Duration: 30 day, Stop date: 05/22/17 1:42:00 [employer]IGAR[employer] Start Date: 04/22/17 Stop Date: 04/29/17 Status: DiscontinuedDialyvite 800 oral tablet 1 tab, PO, QPM, 0 Refill(s) Start Date: 04/22/17 Status: Ordereddocusate sodium 100 mg oral capsule 100 mg, 1 cap, Route: PO, Drug form: CAP, QAM & PM, Dosing Weight 68.5, kg, Start date: 04/22/1816:00:00 [employer], Duration: 30 day, Stop date: 05/22/17 8:30:00 [employer]IGAR[employer] P[employer] Notes: (Same as: Colace) (Do Not Crush) Start Date: 04/22/17 Stop Date: 04/29/17 Status: Discontinueddocusate sodium 100 mg oral capsule 100 mg=1 cap, PO, QAM & PM, 0 Refill(s) Start Date: 04/22/17 Status: Ordereddoxazosin 4 mg, 4 tab, Route: PO, Drug form: TAB, QPM, Dosing Weight 68.5, kg, Start date : 04/22/17 17:00:00 [employer]IGAR[employer] P[employer], Duration: 30 day, Stop date: 05/21/17 17:00:00 [employer]IGAR[employer] P[employer] Notes: (Same as: Rob) Start Date: 04/22/17 Stop Date: 04/29/17 Status: Discontinueddoxazosin 4 mg oral tablet 4 mg=1 tab, PO, QPM, 0 Refill(s) Start Date: 04/22/17 Status: OrderedEpogen (ESRD) 8,000 unit, 0.8 mL, Route: SUB-Q, Drug form: INJ, Q-M-W-F, Dosing Weight 68.5, kg, Priority: Within 8 hours, Start date: 04/22/17 17:00:00 [employer], Duration: 30 day, Stop date: 05/20/17 17:00:00 [employer]IGARET[employer] P[employer] TE[employer] Notes: (Same as: Procrit) epoetin ana rosa [address] unit/1 ml VL.For dialysis use only. (Procrit)WASTE: F/P- Red; E -Red MEDICATION WASTE Product Size: 01408 unitProduct Wasted: ___ unit Start Date: 04/22/17 Stop Date: 04/29/17 Status: Discontinuedglucagon 1 mg, Route: IM, Drug form: PDR/INJ, PRN, Dosing Weight 68.5, kg, PRN Blood Glucose Results, Start date: 04/22/17 1:43:00 [employer]IGAR[employer], Duration: 30 day, Stop date: 05/22/17 1:42:00 CIGAR[employer] Start Date: 04/22/17 Stop Date: 04/29/17 Status: Discontinuedheparin 10,000 unit, 10 mL, Route: DIALYSIS, Drug form: INJ, ONCALL, Dosing Weight 68.5 , kg, PRN Dialysis, Start date: 04/25/17 7:45:00 [employer]IG[employer], Duration: 1 doses or times , Stop date: Limited # of times Start Date: 04/25/17 Stop Date: 04/29/17 Status: Discontinuedheparin 5,000 unit, 1 mL, Route: SUB-Q, Drug form: INJ, Q12H, Dosing Weight 68.5, kg, Start date: 04/22/17 9:00:00 [employer]IGAR[employer], Stop date: 05/21/17 21:00:00 [employer]IGAR[employer] P[employer] Notes: porcine heparin Start Date: 04/22/17 Stop Date: 04/29/17 Status: DiscontinuedhydrALAZINE 20 mg, 1 mL, Route: IV, Drug form: INJ, Q4H, Dosing Weight 68.5, kg, PRN Hypertension, Start date: 04/27/17 3:48:00 [employer]IG[employer], Duration: 30 day, Stop date: 12/06 3:47:00 [employer]IGAR[employer] Notes: (Same as: Apresoline)Push over 5 minutes Start Date: 04/27/17 Stop Date: 04/29/17 Status: DiscontinuedhydrALAZINE 10 mg, 0.5 mL, Route: IV, Drug form: INJ, Q4H, Dosing Weight 68.5, kg, PRN Hypertension, Start date:04/22/17 3:57:00 CIGARET[employer] P[employer], Duration: 30 day, Stop date: 07/06 3:56:00 CIGARETTE P[employer] TE[employer] Notes: (Same as: Apresoline)Push over 5 minutes Start Date: 04/22/17 Stop Date: 04/27/17 Status: DiscontinuedhydrALAZINE 100 mg, 2 tab, Route: PO, Drug form: TAB, Q12H, Dosing Weight 68.5, kg, Start date: 04/22/17 9:00:00CST, Duration: 30 day, Stop date: 05/21/17 21:00:00 [employer]IGAR[employer] Notes: (Same as: Apresoline) May interfere w/enteral feedings Take With Food Start Date: 04/22/17 Stop Date: 04/22/17 Status: DiscontinuedhydrALAZINE 10 mg, 0.5 mL, Route: IV, Drug form: INJ, ONCE, Dosing Weight 68.5, kg, Start date: 04/22/17 1:46:00CST, Stop date: 04/22/17 1:46:00 [employer]IGAR[employer] P[employer] Notes: (Same as: Apresoline)Push over 5 minutes Start Date: 04/22/17 Stop Date: 04/22/17 Status: CompletedhydrALAZINE 100 mg oral tablet 100 mg=1 tab, PO, TID, 0 Refill(s) Start Date: 04/22/17 Stop Date: 04/29/17 Status: DiscontinuedhydrALAZINE 100 mg oral tablet 200 mg=2 tab, PO, TID, 0 Refill(s) Start Date: 04/29/17 Status: OrderedhydrALAZINE 100 mg oral tablet 100 mg, 2 tab, Route: PO, Drug form: TAB, TID, Dosing Weight 68.5, kg, Start date: 04/22/17 13:00:00CST, Duration: 30 day, Stop date: 05/22/17 9:00:00 [employer]IGAR[employer] P[employer] Notes: (Same as: Apresoline) May interfere w/enteral feedings Take With Food Start Date: 04/22/17 Stop Date: 04/29/17 Status: DiscontinuedhydrALAZINE 50 mg oral tablet 50 mg, 1 tab, Route: PO, Drug form: TAB, TID, Dosing Weight 68.5, kg, Start date : 04/29/17 9:00:00 [employer]IG[employer], Duration: 30 day, Stop date: 05/28/17 17:00:00 [employer]IGAR[employer] Start Date: 04/29/17 Stop Date: 04/29/17 Status: Canceledinsulin lispro 1 unit, 0.01 mL, Route: SUB-Q, Drug form: SOLN, Bedtime, Dosing Weight 68.5, kg , PRN Blood Glucose Results, Start date: 04/22/17 1:43:00 [employer]IGAR[employer] P[employer], Duration: 30 day , Stop date: 05/22/17 1:42:00 [employer]IGAR[employer] P[employer] TE[employer] Notes: Roll in palms of hands gently; Do not shake `vigorously. (Same as: Humalog )"Single Patient Use Only "WASTE: F/P - Black; E - Municipal Trash Bin Stable for 28 days at room temperature.Expiresin days from Date Start Date: 04/22/17 Stop Date: 04/29/17 Status: Discontinuedinsulin lispro 4 unit, 0.04 mL, Route: SUB-Q, Drug form: SOLN, Bedtime, Dosing Weight 68.5, kg , PRN Blood Glucose Results, Start date: 04/22/17 1:43:00 CIGARET[employer] P[employer], Duration: 30 day , Stop date: 05/22/17 1:42:00 CIGARETTE P[employer]ER TE[employer] Notes: Roll in palms of hands gently; Do not shake `vigorously. (Same as: Humalog )"Single Patient Use Only "WASTE: F/P - Black; E - Municipal Trash Bin Stable for 28 days at room temperature.Expiresin days from Date Start Date: 04/22/17 Stop Date: 04/29/17 Status: Discontinuedinsulin lispro 3 unit, 0.03 mL, Route: SUB-Q, Drug form: SOLN, Bedtime, Dosing Weight 68.5, kg , PRN Blood Glucose Results, Start date: 04/22/17 1:43:00 CIGARETTE P[employer], Duration: 30 day , Stop date: 05/22/17 1:42:00 CIGARETTE P[employer]ER TESTER Notes: Roll in palms of hands gently; Do not shake `vigorously. (Same as: Humalog )"Single Patient Use Only "WASTE: F/P - Black; E - Municipal Trash Bin Stable for 28 days at room temperature.Expiresin days from Date Start Date: 04/22/17 Stop Date: 04/29/17 Status: Discontinuedinsulin lispro 2 unit, 0.02 mL, Route: SUB-Q, Drug form: SOLN, Bedtime, Dosing Weight 68.5, kg , PRN Blood Glucose Results, Start date: 04/22/17 1:43:00 CIGARETTE P[employer], Duration: 30 day , Stop date: 05/22/17 1:42:00 CIGARETTE P[employer]ER TE[employer] Notes: Roll in palms of hands gently; Do not shake `vigorously. (Same as: Humalog )"Single Patient Use Only "WASTE: F/P - Black; E - Municipal Trash Bin Stable for 28 days at room temperature.Expiresin days from Date Start Date: 04/22/17 Stop Date: 04/29/17 Status: Discontinuedinsulin lispro 4 unit, 0.04 mL, Route: SUB-Q, Drug form: SOLN, TID-Before Meals, Dosing Weight 68.5, kg, PRN Blood Glucose Results, Start date: 04/22/17 1:43:00 CIGARETTE P[employer]ER TE[employer], Duration : 30 day, Stop date: 05/22/17 1:42:00 CIGARETTE P[employer]ER TESTER Notes: Roll in palms of hands gently; Do not shake `vigorously. (Same as: Humalog )"Single Patient Use Only "WASTE: F/P - Black; E - Municipal Trash Bin Stable for 28 days at room temperature.Expiresin days from Date Start Date: 04/22/17 Stop Date: 04/29/17 Status: Discontinuedinsulin lispro 5 unit, 0.05 mL, Route: SUB-Q, Drug form: SOLN, TID-Before Meals, Dosing Weight 68.5, kg, PRN Blood Glucose Results, Start date: 04/22/17 1:43:00 CIGARETTE P[employer]ER TE[employer], Duration : 30 day, Stop date: 05/22/17 1:42:00 CIGARETTE PAPER TESTER Notes: Roll in palms of hands gently; Do not shake `vigorously. (Same as: Humalog )"Single Patient Use Only "WASTE: F/P - Black; E - Municipal Trash Bin Stable for 28 days at room temperature.Expiresin days from Date Start Date: 04/22/17 Stop Date: 04/29/17 Status: Discontinuedinsulin lispro 1 unit, 0.01 mL, Route: SUB-Q, Drug form: SOLN, TID-Before Meals, Dosing Weight 68.5, kg, PRN Blood Glucose Results, Start date: 04/22/17 1:43:00 CIGARETTE P[employer]ER [employer], Duration : 30 day, Stop date: 05/22/17 1:42:00 CIGARETTE PAPER TESTER Notes: Roll in palms of hands gently; Do not shake `vigorously. (Same as: Humalog )"Single Patient Use Only "WASTE: F/P - Black; E - Municipal Trash Bin Stable for 28 days at room temperature.Expiresin days from Date Start Date: 04/22/17 Stop Date: 04/29/17 Status: Discontinuedinsulin lispro 2 unit, 0.02 mL, Route: SUB-Q, Drug form: SOLN, TID-Before Meals, Dosing Weight 68.5, kg, PRN Blood Glucose Results, Start date: 04/22/17 1:43:00 CIGARETTE P[employer]ER [employer], Duration : 30 day, Stop date: 05/22/17 1:42:00 CIGARETTE P[employer]ER TE[employer] Notes: Roll in palms of hands gently; Do not shake `vigorously. (Same as: Humalog )"Single Patient Use Only "WASTE: F/P - Black; E - Municipal Trash Bin Stable for 28 days at room temperature.Expiresin days from Date Start Date: 04/22/17 Stop Date: 04/29/17 Status: Discontinuedinsulin lispro 3 unit, 0.03 mL, Route: SUB-Q, Drug form: SOLN, TID-Before Meals, Dosing Weight 68.5, kg, PRN Blood Glucose Results, Start date: 04/22/17 1:43:00 CIGARETTE P[employer], Duration : 30 day, Stop date: 05/22/17 1:42:00 CIGARETTE P[employer]ER TE[employer] Notes: Roll in palms of hands gently; Do not shake `vigorously. (Same as: Humalog )"Single Patient Use Only "WASTE: F/P - Black; E - Municipal Trash Bin Stable for 28 days at room temperature.Expiresin days from Date Start Date: 04/22/17 Stop Date: 04/29/17 Status: Discontinuedisosorbide dinitrate 90 mg, PO, QAM, 0 Refill(s) Start Date: 04/22/17 Status: Orderedisosorbide dinitrate 90 mg, 4.5 tab, Route: PO, Drug form: TAB, QAM, Dosing Weight 68.5, kg, Start date: 04/23/17 9:00:00CST, Duration: 30 day, Stop date: 05/22/17 9:00:00 [employer]AR[employer] Notes: (Same as:Isordil) Take on empty stomach/ full glass of water Start Date: 04/23/17 Stop Date: 04/29/17 Status: DiscontinuedKayexalate 30 gm, 120 mL, Route: PO, Drug form: SUSP, ONCE, Dosing Weight 68.5, kg, Start date: 04/28/17 12:50:00 CIGAR[employer], Stop date: 04/28/17 12:50:00 CIGARET[employer] P[employer] TE[employer] Notes: (sodium polystyrene sulfonate 15 gm/60 ml TRINITY) Shake well before use. (Same as: Kayexalate, SPS) Start Date: 04/28/17 Stop Date: 04/28/17 Status: Completedlabetalol 20 mg, 4 mL, Route: IVP, Drug form: INJ, ONCE, Dosing Weight 68.5, kg, Start date: 04/22/17 3:57:00 [employer]IGAR[employer], Stop date: 04/22/17 3:57:00 CIGARET[employer] P[employer] Start Date: 04/22/17 Stop Date: 04/22/17 Status: Completedlosartan 100 mg, 2 tab, Route: PO, Drug form: TAB, Q12H, Dosing Weight 68.5, kg, Start date: 04/25/17 21:00:00 CIGAR[employer] P[employer], Duration: 30 day, Stop date: 05/25/17 9:00:00 CIGARETTE P[employer]ER TE[employer] Notes: (Same as: Jazzy) Start Date: 04/25/17 Stop Date: 04/29/17 Status: Discontinuedlosartan 50 mg, 1 tab, Route: PO, Drug form: TAB, Q12H, Dosing Weight 68.5, kg, Start date: 04/22/17 1:40:00 CIGARET[employer] P[employer], Stop date: 05/21/17 21:00:00 CIGARET[employer] P[employer]ER TE[employer] Notes: (Same as: Jazzy) Start Date: 04/22/17 Stop Date: 04/25/17 Status: Discontinuedlosartan 50 mg oral tablet 100 mg=2 tab, PO, Q12H, # 30 tab, 0 Refill(s), Pharmacy: [facility]/pharmacy #[id number] Start Date: 04/29/17 Status: Orderedlosartan 50 mg oral tablet 50 mg=1 tab, PO, QAM & PM, 0 Refill(s) Start Date: 04/22/17 Stop Date: 04/29/17 Status: Discontinuedmagnesium sulfate 1 gm, 100 mL, Route: IVPB, Drug form: INJ, ONCE, Dosing Weight 68.5, kg, Start date: 04/22/17 3:57:00 CIGAR[employer], Stop date: 04/22/17 3:57:00 CIGARET[employer] P[employer] TE[employer] Notes: WASTE: F/P - Sink; E - Municipal Trash Bin Start Date: 04/22/17 Stop Date: 04/22/17 Status: Completedmelatonin 3 mg, 1 tab, Route: PO, Drug form: TAB, Bedtime, Dosing Weight 68.5, kg, PRN Sleep, Start date: 04/25/17 18:57:00 [employer]IGAR[employer], Duration: 30 day, Stop date: 05/25/17 18:56:00 CIGARET[employer] P[employer] TE[employer] Notes: (Same as: Melatonin) Start Date: 04/25/17 Stop Date: 04/29/17 Status: DiscontinuedMelatonin 2.5 mg oral capsule 2.5 mg, 1 cap, Route: PO, Dosing Weight 68.5, kg, Bedtime, PRN as needed for insomnia, Start date: 04/25/17 17:50:00 [employer]IGAR[employer], Duration: 30 day, Stop date: 17:49:00 CIGAR[employer] P[employer] Start Date: 04/25/17 Stop Date: 04/25/17 Status: Discontinuedmelatonin 5 mg oral tablet 5 mg=1 tab, PO, Bedtime, PRN for insomnia, # 60 tab, 0 Refill(s) Start Date: 04/22/17 Stop Date: 06/21/17 Status: OrderedNIFEdipine 60 mg oral tablet, extended release 60 mg, 2 tab, Route: PO, Drug form: ERTAB, Q12H, Dosing Weight 68.5, kg, Start date: 04/22/17 1:40:00 [employer]IGAR[employer], Duration: 30 day, Stop date: 05/21/17 21:00:00 CIGARETTE P[employer]ER TESTER Notes: (Same as: Adalat CC, Procardia XL) Give on empty stomach. Take 1 hour before or 2 hours after meal; "Avoid grapefruit and grapefruit juice". Do not crush Start Date: 04/22/17 Stop Date: 04/25/17 Status: DiscontinuedNIFEdipine 90 mg oral tablet, extended release 90 mg=1 tab, PO, QAM & PM, 0 Refill(s) Start Date: 04/22/17 Status: OrderedNIFEdipine 90 mg oral tablet, extended release 90 mg, 1 tab, Route: PO, Drug form: ERTAB, Q12H, Dosing Weight 68.5, kg, Start date: 04/25/17 21:00:00 CIGAR[employer] P[employer], Duration: 30 day, Stop date: 05/25/17 9:00:00 CIGARETTE P[employer]ER TESTER Notes: (Same as: Adalat CC,Procardia XL)"Do Not Crush" "Avoid grapefruit and grapefruit juice" Start Date: 04/25/17 Stop Date: 04/29/17 Status: Discontinuednormal saline 0.9% IV 1,000 mL 1,000 mL, Rate: 75 ml/hr, Infuse over: 13.3 hr, Route: IV, Dosing Weight 68.5 kg , Total Volume: 1,000, Start date: 04/29/17 10:55:00 CIGAR[employer]TE P[employer], Duration: 30 day, Stop date: 05/29/17 10:54:00 CDT, 1.79, m2 Start Date: 04/29/17 Stop Date: 04/29/17 Status: Discontinuednormal saline 0.9% IV 1,000 mL 1,000 mL, Rate: 1 ml/hr, Infuse over: 1000 hr, Route: DIALYSIS, Dosing Weight 68.5 kg, Total Volume:1,000, Priority: NOW, Start date: 04/25/17 7:43:00 CIGARETTE P[employer], Duration: 30 day, Stop date: 05/25/17 7:42:00 CIGARETTE P[employer]ER TE[employer], 1.79, m2 Start Date: 04/25/17 Stop Date: 04/27/17 Status: Discontinuednormal saline 0.9% IV 1,000 mL 1,000 mL, Rate: 1 ml/hr, Infuse over: 1000 hr, Route: DIALYSIS, Dosing Weight 68.5 kg, Total Volume:1,000, Priority: NOW, Start date: 04/25/17 7:42:00 CIGARETTE P[employer]ER TE[employer], Duration: 30 day, Stop date: 05/25/17 7:41:00 CIGARETTE P[employer]ER TE[employer], 1.79, m2 Start Date: 04/25/17 Stop Date: 04/27/17 Status: DiscontinuedPlavix 75 mg, 1 tab, Route: PO, Drug form: TAB, Daily, Dosing Weight 68.5, kg, Start date: 04/22/17 9:00:00CST, Duration: 30 day, Stop date: 05/21/17 9:00:00 [employer]IGARET[employer] P[employer] TE[employer] Notes: (Same As: Plavix) Start Date: 04/22/17 Stop Date: 04/29/17 Status: DiscontinuedPlavix 75 mg oral tablet 75 mg=1 tab, PO, QAM, 0 Refill(s) Start Date: 04/22/17 Status: Orderedpotassium chloride 20 mEq oral tablet, extended release 20 mEq, 1 tab, Route: PO, Drug form: ERTAB, ONCE, Dosing Weight 68.5, kg, Start date: 04/22/17 3:57:00 CIGAR[employer] P[employer], Stop date: 04/22/17 3:57:00 CIGARETTE P[employer]ER TESTER Notes: (Same as: K-Dur 20)"Do Not Crush" With food and full glass of water Start Date: 04/22/17 Stop Date: 04/22/17 Status: Completedremove patch 1 patch, Route: TOP, Drug form: ERFILM, Q7D, Start date: 05/06/17 4:59:00 CIGAR[employer] P[employer], Duration: 30 day, Stop date: 06/03/17 9:00:00 CDT Start Date: 05/06/17 Stop Date: 04/29/17 Status: Canceledsertraline 50 mg, 1 tab, Route: PO, Drug form: TAB, QPM, Dosing Weight 68.5, kg, Start date : 04/22/17 17:00:00 CIGARETTE P[employer], Duration: 30 day, Stop date: 05/21/17 17:00:00 CIGARETTE P[employer]ER TESTER Notes: (Same as: Zoloft) Start Date: 04/22/17 Stop Date: 04/29/17 Status: Discontinuedsertraline 50 mg oral tablet 50 mg=1 tab, PO, QPM, 0 Refill(s) Start Date: 04/22/17 Status: Orderedsodium chloride 0.9% (Priming and Maintenance) 2,000 mL, 0 ml/hr, Infuse Over: 0 hr, Route: IV, 2,000, Drug form: INJ, PRN, Dosing Weight 68.5 kg, Start date: 04/28/17 11:40:00 CIGARETTE P[employer] TE[employer], Duration: 24 hr, Stop date: 04/29/17 11:39:00 CIGARETTE P[employer]ER TESTER, For Use by Dialysis nurse ONLY, PRN Dialysis Start Date: 04/28/17 Stop Date: 04/29/17 Status: CompletedTums 1,000 mg, 2 tab, Route: CHEW, Drug form: CHEWTAB, QAM & PM, Dosing Weight 68.5, kg, Start date: 04/22/17 17:00:00 CIGARETTE P[employer]ER TE[employer], Duration: 30 day, Stop date: 8:30:00 [employer] Notes: (Same As: Tums)Calcium Carbonate 500 xa=001 mg elemental calcium Dose=_ mg calcium carbonate ( mg elemental calcium) Start Date: 04/22/17 Stop Date: 04/29/17 Status: DiscontinuedTums 1,000 mg, CHEW, QAM & PM, 0 Refill(s) Start Date: 04/22/17 Status: OrderedVitamin D3 1000 intl units oral tablet 5,000 IntlUnit, 5 tab, Route: PO, Drug form: TAB, QPM, Dosing Weight 68.5, kg, Start date: 04/22/17 17:00:00 [employer], Stop date: 05/21/17 17:00:00 [employer] Notes: Same as : Vitamin D3 Start Date: 04/22/17 Stop Date: 04/29/17 Status: DiscontinuedVitamin D3 5000 intl units oral capsule 5,000 IntlUnit=1 cap, PO, QPM, # 30 cap, 1 Refill(s) Start Date: 04/22/17 Status: Ordered Results BLOOD BANK RESULTS Most recent to oldest [Reference Range]: 1 2 3 ABO/Rh A NEG *Unknown* (04/28/17 7:30 AM) Antibody Scrn Negative (04/28/17 7:30 AM) RBC product Product available 1 (04/28/17 7:00 AM) 1Result Comment: 04/28/2017 09:20 [id number] Blood available, notified Ravi Deleon at 04/28/2017 09:19 by [email or web address] Most recent to oldest 1 2 3 [Reference Range]: Sodium Lvl [135-145 mEq/L] 135 mEq/L 130 mEq/L 133 mEq/L (04/29/17 4:29 AM) *LOW* *LOW* (04/28/17 3:58 AM) (04/26/17 4:40 AM) Potassium Lvl [3.5-5.1 mEq/L] 4.8 mEq/L 5.3 mEq/L 5.7 mEq/L (04/29/17 4:29 AM) *HI* *HI* (04/28/17 1:49 PM) (04/28/17 3:58 AM) Chloride Lvl [95-109 mEq/L] 99 mEq/L 97 mEq/L 97 mEq/L (04/29/17 4:29 AM) (04/28/17 3:58 AM) (04/26/17 4:40 AM) CO2 [24-32 mEq/L] 30 mEq/L 29 mEq/L 31 mEq/L (04/29/17 4:29 AM) (04/28/17 3:58 AM) (04/26/17 4:40 AM) AGAP [10.0-20.0 mEq/L] 10.8 mEq/L 9.7 mEq/L 9.2 mEq/L (04/29/17 4:29 AM) *LOW* *LOW* (04/28/17 3:58 AM) (04/26/17 4:40 AM) CHEM PANEL Most recent to oldest 1 2 3 [Reference Range]: Creatinine Lvl [0.50-1.40 3.11 mg/dL 4.70 mg/dL 3.24 mg/dL mg/dL] *HI* *HI* *HI* (04/29/17 4:29 AM) (04/28/17 3:58 AM) (04/26/17 4:40 AM) eGFR 15 mL/min/1.73m2 1 9 mL/min/1.73m2 2 14 mL/min/1.73m2 3 *NA* *NA* *NA* (04/29/17 4:29 AM) (04/28/17 3:58 AM) (04/26/17 4:40 AM) BUN [7-22 mg/dL] 19 mg/dL 37 mg/dL 22 mg/dL (04/29/17 4:29 AM) *HI* (04/26/17 4:40 AM) (04/28/17 3:58 AM) B/C Ratio [6-25] 7 7 (04/22/17 7:14 AM) (04/22/17 2:38 AM) Glucose Lvl [70-99 mg/dL] 82 mg/dL 87 mg/dL 75 mg/dL (04/29/17 4:29 AM) (04/28/17 3:58 AM) (04/26/17 4:40 AM) Total Protein [6.4-8.4 g/dL] 5.8 g/dL 6.9 g/dL *LOW* (04/22/17 2:38 AM) (04/22/17 7:14 AM) Albumin Lvl [3.5-5.0 g/dL] 2.9 g/dL 3.1 g/dL *LOW* *LOW* (04/22/17 7:14 AM) (04/22/17 2:38 AM) Globulin [2.7-4.2 g/dL] 2.9 g/dL 3.8 g/dL (04/22/17 7:14 AM) (04/22/17 2:38 AM) A/G Ratio [0.7-1.6] 1.0 0.8 (04/22/17 7:14 AM) (04/22/17 2:38 AM) Calcium Lvl [8.5-10.5 mg/dL] 8.5 mg/dL 8.2 mg/dL 8.4 mg/dL (04/29/17 4:29 AM) *LOW* *LOW* (04/28/17 3:58 AM) (04/26/17 4:40 AM) Phosphorus [2.5-4.5 mg/dL] 2.4 mg/dL *LOW* (04/22/17 7:14 AM) Magnesium Lvl [1.8-2.4 mg/dL] 2.2 mg/dL 1.9 mg/dL (04/22/17 7:14 AM) (04/22/17 2:38 AM) ALT [0-65 unit/L] 16 unit/L 14 unit/L (04/22/17 7:14 AM) (04/22/17 2:38 AM) AST [0-37 unit/L] 18 unit/L 18 unit/L (04/22/17 7:14 AM) (04/22/17 2:38 AM) Alk Phos [39-136 unit/L] 69 unit/L 74 unit/L (04/22/17 7:14 AM) (04/22/17 2:38 AM) Bili Total [0.2-1.3 mg/dL] 0.6 mg/dL 0.7 mg/dL (04/22/17 7:14 AM) (04/22/17 2:38 AM) 1Result Comment: The eGFR is calculated using the CKD-EPI formula. In most young , healthy individualsthe eGFR will be >90 mL/min/1.73m2. The eGFR declines with age. An eGFR of 60-89 may be normal insome populations, particularly the elderly, for whom the CKD-EPI formula has not been extensively validated. Use of the eGFR is not recommended in the following populations: Individuals with unstable creatinine concentrations, including patients and those with serious co-morbid conditions. Patients with extremes in muscle mass or diet. The data above are obtained from the National Kidney Disease Education Program ( NKDEP) which additionally recommends that when the eGFR is used in patients with extremes of body mass index for purposesof drug dosing, the eGFR should be multiplied by the estimated BMI.2Result Comment: The eGFR is calculated using the CKD-EPI formula. In most young, healthy individualsthe eGFR will be >90 mL/min/1.73m2. The eGFR declines with age. An eGFR of 60-89 may be normal insome populations, particularly the elderly, for whom the CKD-EPI formula has not been extensively validated. Use of the eGFR is not recommended in the following populations: Individuals with unstable creatinine concentrations, including patients and those with serious co-morbid conditions. Patients with extremes in muscle mass or diet. The data above are obtained from the National Kidney Disease Education Program ( NKDEP) which additionally recommends that when the eGFR is used in patients with extremes of body mass index for purposesof drug dosing, the eGFR should be multiplied by the estimated BMI.3Result Comment: The eGFR is calculated using the CKD-EPI formula. In most young, healthy individualsthe eGFR will be >90 mL/min/1.73m2. The eGFR declines with age. An eGFR of 60-89 may be normal insome populations, particularly the elderly, for whom the CKD-EPI formula has not been extensively validated. Use of the eGFR is not recommended in the following populations: Individuals with unstable creatinine concentrations, including patients and those with serious co-morbid conditions. Patients with extremes in muscle mass or diet. The data above are obtained from the National Kidney Disease Education Program ( NKDEP) which additionally recommends that when the eGFR is used in patients with extremes of body mass index for purposesof drug dosing, the eGFR should be multiplied by the estimated BMI.CARDIAC ENZYMES Most recent to oldest [Reference Range]: 1 2 3 Total CK [12-191 unit/L] 70 unit/L 85 unit/L (04/22/17 7:14 AM) (04/22/17 3:15 AM) CK MB [0.5-3.6 ng/mL] <0.5 ng/mL (04/22/17 3:15 AM) CK MB Index [0.0-2.5] <0.6 (04/22/17 3:15 AM) Troponin-I [0.00-0.40 ng/mL] 0.06 ng/mL 0.04 ng/mL (04/22/17 7:14 AM) (04/22/17 3:15 AM) proBNP [0-450 pg/mL] 33891 pg/mL *HI* (04/22/17 7:14 AM) ANEMIA STUDY Most recent to oldest [Reference Range]: 1 2 3 Iron [30-160 ug/dl] 25 ug/dl *LOW* (04/22/17 7:14 AM) Ferritin Lvl [5-204 ng/mL] 1690 ng/mL *HI* (04/22/17 7:14 AM) % Satur Fe [12-57 %] 16 % (04/22/17 7:14 AM) UIBC [110-370 ug/dl] 128 ug/dl (04/22/17 7:14 AM) TIBC [228-428 ug/dl] 153 ug/dl *LOW* (04/22/17 7:14 AM) Transferrin [212-360 mg/dL] 124 mg/dL *LOW* (04/22/17 7:14 AM) IMMUNOLOGY Most recent to oldest [Reference Range]: 1 2 3 Hep Bs Ag [Negative] Negative *NA* (04/22/17 9:31 AM) HEMATOLOGY Most recent to oldest 1 2 3 [Reference Range]: WBC [3.7-10.4 K/CMM] 5.2 K/CMM 4.2 K/CMM 4.2 K/CMM (04/29/17 4:29 AM) (04/28/17 3:58 AM) (04/27/17 7:51 PM) RBC [4.20-5.40 M/CMM] 2.94 M/CMM 1.87 M/CMM 1.95 M/CMM *LOW* *LOW* *LOW* (04/29/17 4:29 AM) (04/28/17 3:58 AM) (04/27/17 7:51 PM) Hgb [12.0-16.0 g/dL] 10.1 g/dL 6.5 g/dL 1 7.0 g/dL 2 *LOW* *CRIT* *CRIT* (04/29/17 4:29 AM) (04/28/17 3:58 AM) (04/27/17 7:51 PM) Hct [36.0-48.0 %] 28.5 % 18.5 % 3 19.3 % 4 *LOW* *CRIT* *CRIT* (04/29/17 4:29 AM) (04/28/17 3:58 AM) (04/27/17 7:51 PM) MCV [80.0-98.0 fL] 96.8 fL 98.6 fL 98.8 fL (04/29/17 4:29 AM) *HI* *HI* (04/28/17 3:58 AM) (04/27/17 7:51 PM) MCH [27.0-31.0 pg] 34.4 pg 34.9 pg 35.6 pg *HI* *HI* *HI* (04/29/17 4:29 AM) (04/28/17 3:58 AM) (04/27/17 7:51 PM) MCHC [32.0-36.0 g/dL] 35.6 g/dL 35.4 g/dL 36.0 g/dL (04/29/17 4:29 AM) (04/28/17 3:58 AM) (04/27/17 7:51 PM) RDW [11.5-14.5 %] 14.7 % 13.6 % 13.8 % *HI* (04/28/17 3:58 AM) (04/27/17 7:51 PM) (04/29/17 4:29 AM) MPV [7.4-10.4 fL] 8.5 fL 8.1 fL 8.6 fL (04/29/17 4:29 AM) (04/28/17 3:58 AM) (04/27/17 7:51 PM) Platelet [133-450 K/CMM] 204 K/CMM 176 K/CMM 183 K/CMM (04/29/17 4:29 AM) (04/28/17 3:58 AM) (04/27/17 7:51 PM) Segs [45.0-75.0 %] 74.6 % 64.0 % 83.9 % (04/29/17 4:29 AM) (04/28/17 3:58 AM) *HI* (04/22/17 7:14 AM) Lymphocytes [20.0-40.0 %] 15.1 % 24.2 % 8.2 % *LOW* (04/28/17 3:58 AM) *LOW* (04/29/17 4:29 AM) (04/22/17 7:14 AM) Monocytes [2.0-12.0 %] 8.3 % 8.8 % 6.7 % (04/29/17 4:29 AM) (04/28/17 3:58 AM) (04/22/17 7:14 AM) Eosinophils [0.0-4.0 %] 1.3 % 2.1 % 0.7 % (04/29/17 4:29 AM) (04/28/17 3:58 AM) (04/22/17 7:14 AM) Basophils [0.0-1.0 %] 0.7 % 0.9 % 0.5 % (04/29/17 4:29 AM) (04/28/17 3:58 AM) (04/22/17 7:14 AM) Segs-Bands # [1.5-8.1 K/CMM] 3.9 K/CMM 2.7 K/CMM 5.7 K/CMM (04/29/17 4:29 AM) (04/28/17 3:58 AM) (04/22/17 7:14 AM) Lymphocytes # [1.0-5.5 K/CMM] 0.8 K/CMM 1.0 K/CMM 0.6 K/CMM *LOW* (04/28/17 3:58 AM) *LOW* (04/29/17 4:29 AM) (04/22/17 7:14 AM) Monocytes # [0.0-0.8 K/CMM] 0.4 K/CMM 0.4 K/CMM 0.5 K/CMM (04/29/17 4:29 AM) (04/28/17 3:58 AM) (04/22/17 7:14 AM) Eosinophils # [0.0-0.5 K/CMM] 0.1 K/CMM 0.1 K/CMM 0.1 K/CMM (04/29/17 4:29 AM) (04/28/17 3:58 AM) (04/22/17 2:38 AM) PT [12.0-14.7 seconds] 14.4 seconds 14.2 seconds (04/22/17 7:14 AM) (04/22/17 2:38 AM) INR [0.85-1.17] 1.12 1.10 (04/22/17 7:14 AM) (04/22/17 2:38 AM) PTT [22.9-35.8 seconds] 34.0 seconds 37.7 seconds (04/22/17 7:14 AM) *HI* (04/22/17 2:38 AM) 1Result Comment: Critical Result(s) called to andrew fuentes at 04/28/2017 04:20 by gg. Read back OK.2Result Comment: Critical Result(s) called to Elle Fuentes RN at 04/27/2017 20:12 by GNF. Read back OK.3Result Comment: Critical Result(s ) called to andrew fuentes at 04/28/2017 04:20 by gg. Read back OK.4Result Comment : Critical Result(s) called to Elle Fuentes RN at 04/27/2017 20:13 by GN. Read back OK.BACTERIAL - SEROLOGY Most recent to oldest [Reference Range]: 1 2 3 MRSA by PCR Negative (04/22/17 2:38 AM) Immunizations Given and Recorded Vaccine Date Status Refusal Reason Hx influenza vaccine-unspecified1 12/23/11 Given 1Result Comment: flu shot. Migrated from [facility] ; Data migrated from [employer] on 04/22/2015. Procedures Procedure Date Related Diagnosis Body Site Status Bilateral extraction of cataracts Completed Caesarean section Completed Carotid angiogram Completed Cholecystectomy Completed Provision of stents or bite blocks1 Completed 1Kidney stents placed Social History Social History Type Response Smoking Status Former smoker; Type: Cigarettes; Previous treatment: None; Ready to change: Yes; Concerns about tobacco use in household: No; Exposure to Tobacco Smoke None; Cigarette Smoking Last 365 Days No; Reg Smoking Cessation Counseling Yes entered on: 04/22/17 Assessment and Plan Extracted from: Title: Nephrology* Author: Karri Willis MD Date: 04/28/17 Impression and Plan 1.ESRD on HD 2.Volume overload imrpoved with HD 3.Acute hypoxic resp failrue due to #2 improved 4.Hypertensive heart and CKD 5.Anemia in CKD 6.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 Recs: Dialyzed today HD again tomorrow per MWF If Hb lower than 7 PRBCs in HD BP control DM control per primary Extracted from: Title: Consult Note Author: Stoney Matute MD Date: 04/22/17 1.Benign hypertension Uncontrolled Hypertension: on nifedipine, hydralazine, losartan, doxasin HD today for metabolic and volume clearance 2.ESRD (end stage renal disease) HDMWF renal diet strict intake/output 3.Anemia in chronic kidney disease (CKD) Hg low check iron studies add CATRER 4.Dyspnea likely CHF, check CXR Acute congestive heart failure with left ventricular diastolic dysfunction Extracted from: Title: General Admission H&P * Author: Eliseo Schultz Date : 04/22/17 Impression and Plan 86-year-old female with history of hypertension, diabetes mellitus, congestive heart failure, presented to outside emergency room complaining of shortness of breath. Patient evaluated in the emergency room at [facility]. Transfer for fluid overload and exacerbation of congestive heart failure. 1. Shortness of breath related to 2. 2. Acute decompensation of congestive heart failure/fluid overload. Unknown creatinine baseline. 3. End-stage renal disease on hemodialysis. Hemodialysis on Tuesday and Tuesday. Access left upper extremity AV fistula. Last hemodialysis on Tuesday. Noncompliant with fluid restriction and diet. Renal consult for for Dr. Matute 4. Hypertension urgency. Resume blood pressure medication. If blood pressure persistently high, nicardipine drip. 5. Diabetes mellitus type 2. Not on insulin not on p.o. medication. Diet controlled. Accu-Chek fingerstick and insulin sliding scale. 6. DVT prophylaxis. Heparin subcutaneous.
[2017-11-25] MEDS ORDERED: ALBUTEROL 2.5 MG/3 ML NEB SOL ONE (07:25)
[2017-11-25] MEDS ORDERED: IPRATROPIUM BROM 0.5MG/2.5ML ONE (07:26)
--- NOTE | 2017-11-25 07:33 | EKG ---
Test Date: 2017-11-25 Test Time: 07:26:29 Welder Operator: ORTEGA MEASUREMENT RESULTS: Intervals: Rate: 83 OK: 200 QRSD: 100 QT: 384 QTc: 451 [place]: P: 62 OK: 200 QRS: -15 T: 24 INTERPRETIVE STATEMENTS: Normal sinus rhythm Septal infarct, age undetermined Abnormal ECG Compared to ECG 07/22/2017 15:33:02 Atrial premature complex(es) no longer present First degree AV block no longer present Myocardial infarct finding still present Electronically Signed On 11-25-17 07:32:49 CDT by Juan Pablo Leroy
[2017-11-25 07:45] LABS: Absolute Lymphocytes (CBC) 1.1 K/uL (0.7-4.9); Absolute Monocytes 0.4 K/uL (0.1-1.3); Absolute Neutrophil 3.7 K/uL (1.8-8.0); Basophils % 0.7 % (0-1.3); Eosinophils % 1.5 % (0-4.4); Lymphocytes % 20.7 % (15.3-44.8); MCH 32.5 pg (27.0-35.0); MCV 95.6 fL (80-100); MPV 8.3 fL (7.6-11.3); Monocytes % 7.4 % (3.3-12.3); RBC Red Blood Cell Count 2.07 M/uL (3.86-4.86)
[2017-11-25 07:51] LABS: Hematocrit 19.8 % (36.0-45.0)
[2017-11-25 08:05] LABS: Protime INR 0.99
[2017-11-25 08:14] LABS: Albumin 3.4 g/dL (3.4-5.0); Bilirubin Direct 0.2 mg/dL (0-0.2); Bilirubin Total 0.4 mg/dL (0.2-1.0); CKMB Creatine Kinase MB 1.1 ng/mL (0.3-3.6); Magnesium 2.3 mg/dL (1.8-2.4); Potassium 3.5 mmol/L (3.5-5.1); Protein, Total 7.3 g/dL (6.4-8.2); Troponin (Emerg Dept Use Only) 0.03 ng/mL (0.0-0.045)
--- NOTE | 2017-11-25 08:45 | RAD REPORT ---
EXAM DESCRIPTION: Joy Single View11/25/2017 7:45 am CLINICAL HISTORY: Shortness of breath COMPARISON: July 2017 FINDINGS: The lungs appear mildly hazy. The heart is mildly to moderately enlarged IMPRESSION: Lungs appear mildly hazy. Mild pulmonary edema the suspected
--- NOTE | 2017-11-25 12:55 | EDPHYS ---
Physician Documentation [facility] Name: Erendira Graham Age: 87 yrs Sex: Female : 1930 Arrival Date: 11/25/2017 Time: 06:59 Bed 6 Private MD: ED Physician Raudel Agudelo HPI: 11/25 07:23 This 87 yrs old Black Female presents to ER via Wheelchair with complaints of Breathing jmm Difficulty. 07:23 The patient has shortness of breath at rest. Onset: The symptoms/episode began/occurred jmm this morning. Duration: The symptoms are continuous. Associated signs and symptoms: Pertinent positives: cough, congestion. This is a n 87 year old female with a history of CHF, ESRD, HTN that presents to the ED with shortness of breath upon awakening. Denies chest pain. Historical: - Allergies: 07:24 Karlene; iw 07:24 Ciprofloxacin; iw 07:24 PENICILLINS; iw 07:24 tequin; iw 07:24 Bactrim; iw - Home Meds: 07:24 aspirin 81 mg Oral TbEC 1 tab once daily [Active]; Plavix 75 mg Oral tab 1 tab once iw daily [Active]; hydralazine 100 mg Oral tab 3 times per day [Active]; isosorbide mononitrate 30 mg Oral Tb24 twice a day [Active]; nifedipine 90 mg oral TbER twice a day [Active]; clonidine HCl 0.3 mg Oral tab 1 tab 2 times per day [Active]; doxazosin 8 mg oral tab twice a day [Active]; docusate sodium 100 mg Oral tab 2 times per day [Active]; Vitamin D Oral 5000 unit daily [Active]; melatonin 5 mg Oral tab nightly [Active]; - PMHx: 07:24 CHF; Diabetes - NIDDM; Dialysis; ESRD; Hypertension; iw - PSHx: 07:24 L arm fistula; Cholecystectomy; Carotid surgery; Kidney stents; iw - Immunization history:: Adult Immunizations up to date. - Social history:: Smoking status: Patient/guardian denies using tobacco. - Ebola Screening: : Patient negative for fever greater than or equal to 101.5 degrees Fahrenheit, and additional compatible Ebola Virus Disease symptoms Patient denies exposure to infectious person Patient denies travel to an Ebola-affected area in the 21 days before illness onset No symptoms or risks identified at this time. ROS: 07:23 Constitutional: Negative for fever, chills, and weight loss, Cardiovascular: Negative [facility] for chest pain, palpitations, and edema. 07:23 Abdomen/GI: Negative for abdominal pain, nausea, vomiting, diarrhea, and constipation, Skin: Negative for injury, rash, and discoloration, Neuro: Negative for headache, weakness, numbness, tingling, and seizure. 07:23 Respiratory: Positive for shortness of breath. 07:23 All other systems are negative. Exam: 07:23 Head/Face: atraumatic. Chest/axilla: Normal chest wall appearance and motion. [facility] Cardiovascular: Regular rate and rhythm. No edema appreciated 07:23 Constitutional: The patient appears in no acute distress, alert, awake. 07:23 Respiratory: the patient does not display signs of respiratory distress, Respirations: normal, Breath sounds: wheezing: that is mild, is scattered. 07:23 Musculoskeletal/extremity: ROM: intact in all extremities. 07:23 Skin: Appearance: Color: normal in color. 07:23 Neuro: Orientation: is normal, Mentation: is normal. 07:23 Psych: Behavior/mood is pleasant, cooperative. 07:32 ECG was reviewed by the Attending Physician. [facility] Vital Signs: 07:18 BP 208 / 86; Pulse 80; Resp 16 S; Temp 98.6(O); Pulse Ox 100% on R/A; Weight 65.77 kg; iw Height 5 ft. 5 in. (165.10 cm); Pain 8/10; 08:56 Pulse 85; Resp 18; Temp 98.6(O); Pulse Ox 99% on R/A; Pain 2/10; ch 10:27 BP 155 / 55; Pulse 76; Resp 18; Temp 98.3; Pulse Ox 97% on R/A; Pain 2/10; ch 11:30 BP 168 / 88; Pulse 71; Resp 18; Temp 98.3; Pulse Ox 99% on R/A; Pain 0/10; ch 12:28 BP 173 / 52; Pulse 74; Resp 18; Temp 99.3; Pulse Ox 96% on R/A; Pain 0/10; ch 12:49 BP 177 / 63; Pulse 83; Resp 22; Temp 99.1; Pulse Ox 96% on R/A; Pain 2/10; ch 07:18 Body Mass Index 24.13 (65.77 kg, 165.10 cm) iw MDM: 07:15 Patient medically screened. [facility] 07:23 Differential diagnosis: Bronchitis CHF exacerbation, Myocardial Infarction pulmonary [facility] edema, Pulmonary Embolism. 12:52 Data reviewed: vital signs, nurses notes, lab test result(s). Counseling: I had a [facility] detailed discussion with the patient and/or guardian regarding: the historical points, exam findings, and any diagnostic results supporting the discharge/admit diagnosis, the need to transfer to another facility. ED course: I discussed the patient with Dr. Jones whom accepted transfer. . 11/25 07:16 Order name: Basic Metabolic Panel; Complete Time: 08:27 [facility] 11/25 07:16 Order name: CBC with Diff; Complete Time: 07:52 [facility] 11/25 08:31 Interpretation: Abnormal: HGB 6.7. [facility] 11/25 07:16 Order name: Ckmb; Complete Time: 08:27 [facility] 11/25 07:16 Order name: CPK; Complete Time: 08:27 [facility] 11/25 07:16 Order name: LFT's; Complete Time: 08:27 [facility] 11/25 07:16 Order name: Magnesium; Complete Time: 08:27 [facility] 11/25 07:16 Order name: NT PRO-BNP; Complete Time: 08:27 [facility] 11/25 07:16 Order name: PT-INR; Complete Time: 08:14 [facility] 11/25 07:16 Order name: Ptt, Activated; Complete Time: 08:14 [facility] 11/25 07:16 Order name: Troponin (emerg Dept Use Only); Complete Time: 08:27 [facility] 11/25 07:16 Order name: XRAY Chest (1 view); Complete Time: 08:51 [facility] 11/25 07:17 Order name: Influenza Screen (a \T\ B); Complete Time: 08:14 [facility] 11/25 07:51 Order name: Type And Screen; Complete Time: 10:05 [facility] 11/25 07:16 Order name: EKG; Complete Time: 07:17 [facility] 11/25 07:16 Order name: Cardiac monitoring; Complete Time: 07:44 [facility] 11/25 07:16 Order name: EKG - Nurse/Tech; Complete Time: 07:45 [facility] 11/25 07:16 Order name: IV Saline Lock; Complete Time: :45 [facility] 11/25 07:16 Order name: Labs collected and sent; Complete Time: 45 [facility] 11/25 07:16 Order name: O2 Per Protocol; Complete Time: 45 [facility] 11/25 07:16 Order name: O2 Sat Monitoring; Complete Time: :45 [facility] EC:32 Rate is 83 beats/min. Rhythm is regular. QRS [place] is Normal. MI interval is normal. QRS [facility] interval is normal. No ST changes noted. Reviewed by me. Administered Medications: 07:35 Drug: DuoNeb (3:1) (2.5 mg - 0.5 mg) 3 ml Route: Nebulizer; 12:30 Follow up: Response: No adverse reaction; Marked relief of symptoms Point of Care Testing: Guaiac: 07:32 Stool Guaiac: Negative; Stool Hemoccult Control: Pass; [facility] Disposition: 11/25/17 12:54 Transfer ordered to Other Acute Care Facility. Diagnosis are Anemia, Dypnea. - Reason for transfer: Higher level of care. - Accepting physician is Robert. - Condition is Stable. - Problem is an acute exacerbation. - Symptoms have improved. Signatures: Dispatcher [employer] EDMS Yajaira Ramirez, JONH RN Escobar Rhoades PA PA [facility] Stephanie Dwyer RN RN Corrections: (The following items were deleted from the chart) 07:31 07:23 This is a n 87 year old female with a history of ESRD, HTN that presents to the [facility] ED with shortness of breath upon awakening. Denies chest pain. [facility] 07:16 Urine Dipstick-Ancillary ordered. [facility] 13:35 12:54 11/25/2017 12:54 Transfer ordered to Other Acute Care Facility. Diagnosis is Anemia; Dypnea. Reason for transfer: Higher level of care. Accepting physician is Robert. Condition is Stable. Problem is an acute exacerbation. Symptoms have improved. [facility]
--- NOTE | 2017-11-25 12:55 | ER ---
Nurse's Notes [facility] Name: Erendira Graham Age: 87 yrs Sex: Female : 1930 Arrival Date: 11/25/2017 Time: 06:59 Bed 6 Private MD: Diagnosis: Anemia;Dypnea Presentation: 11/25 07:13 Presenting complaint: Patient states: woke up this morning and felt like she couldn't iw breathe, was feeling bad yesterday, c/o congestion and mild cough, daughter states pt has been dealing with seasonal allergies, has been on several OTC medications and was prescribed a medrol pack last week. Transition of care: patient was not received from another setting of care. Onset of symptoms was November 25, 2017. Risk Assessment: Do you want to hurt yourself or someone else? Patient reports no desire to harm self or others. Initial Sepsis Screen: Does the patient meet any 2 criteria? No. Patient's initial sepsis screen is negative. Does the patient have a suspected source of infection? No. Patient's initial sepsis screen is negative. Care prior to arrival: None. 07:13 Method Of Arrival: Wheelchair iw 07:13 Acuity: KEKE 3 iw Historical: - Allergies: 07:24 Karlene; iw 07:24 Ciprofloxacin; iw 07:24 PENICILLINS; iw 07:24 tequin; iw 07:24 Bactrim; iw - Home Meds: 07:24 aspirin 81 mg Oral TbEC 1 tab once daily [Active]; Plavix 75 mg Oral tab 1 tab once iw daily [Active]; hydralazine 100 mg Oral tab 3 times per day [Active]; isosorbide mononitrate 30 mg Oral Tb24 twice a day [Active]; nifedipine 90 mg oral TbER twice a day [Active]; clonidine HCl 0.3 mg Oral tab 1 tab 2 times per day [Active]; doxazosin 8 mg oral tab twice a day [Active]; docusate sodium 100 mg Oral tab 2 times per day [Active]; Vitamin D Oral 5000 unit daily [Active]; melatonin 5 mg Oral tab nightly [Active]; - PMHx: 07:24 CHF; Diabetes - NIDDM; Dialysis; ESRD; Hypertension; iw - PSHx: 07:24 L arm fistula; Cholecystectomy; Carotid surgery; Kidney stents; iw - Immunization history:: Adult Immunizations up to date. - Social history:: Smoking status: Patient/guardian denies using tobacco. - Ebola Screening: : Patient negative for fever greater than or equal to 101.5 degrees Fahrenheit, and additional compatible Ebola Virus Disease symptoms Patient denies exposure to infectious person Patient denies travel to an Ebola-affected area in the 21 days before illness onset No symptoms or risks identified at this time. Screenin:28 Abuse screen: Denies threats or abuse. Denies injuries from another. Nutritional ch screening: No deficits noted. Tuberculosis screening: No symptoms or risk factors identified. Fall Risk None identified. Assessment: 08:56 General: Appears in no apparent distress. uncomfortable, Behavior is cooperative, ch appropriate for age. Pain: Complains of pain in face Pain currently is 3 out of 10 on a pain scale. Neuro: No deficits noted. Level of Consciousness is awake, alert, obeys commands, Oriented to person, place, time, situation, Farmhand are equal bilaterally. Cardiovascular: Heart tones S1 S2 present Capillary refill is > 3 seconds in bilateral fingers toes Clubbing of nail beds is present Pulses are all present. Edema is absent. Rhythm is regular. Respiratory: Airway is patent Trachea midline Respiratory effort is even, unlabored, Respiratory pattern is regular, Breath sounds are coarse bilaterally. GI: Abdomen is round non-distended, Bowel sounds present X 4 quads. Abd is soft and non tender X 4 quads. EENT: Nares with drainage noted Throat is reddened Reports nasal congestion nasal discharge. Derm: No signs and/or symptoms reported regarding the dermatologic system. Musculoskeletal: Circulation, motion, and sensation intact. Capillary refill is > 3 seconds, in bilateral fingers. toes. pt c/o feeling body aches all over. . 10:27 Reassessment: Patient appears in no apparent distress at this time. Patient and/or ch family updated on plan of care and expected duration. Pain level reassessed. Patient is alert, oriented x 3, equal unlabored respirations, skin warm/dry/pink. 11:18 Reassessment: Patient appears in no apparent distress at this time. No changes from iw previously documented assessment. Patient and/or family updated on plan of care and expected duration. Pain level reassessed. Patient is alert, oriented x 3, equal unlabored respirations, skin warm/dry/pink. awaiting transfer of pt. Patient denies pain at this time. 12:28 Reassessment: Patient appears in no apparent distress at this time. Patient and/or ch family updated on plan of care and expected duration. Pain level reassessed. Patient is alert, oriented x 3, equal unlabored respirations, skin warm/dry/pink. awaiting acceptace to a transfer facility. Patient denies pain at this time. 12:49 Reassessment: Patient appears in no apparent distress at this time. Patient and/or ch family updated on plan of care and expected duration. Pain level reassessed. Patient is alert, oriented x 3, equal unlabored respirations, skin warm/dry/pink. Patient denies pain at this time. General: Appears in no apparent distress. comfortable, Behavior is calm, cooperative, appropriate for age. 13:15 Reassessment: Patient appears in no apparent distress at this time. report called to Jorden, pt and family verb understanding. no s/s of distress. Vital Signs: 07:18 BP 208 / 86; Pulse 80; Resp 16 S; Temp 98.6(O); Pulse Ox 100% on R/A; Weight 65.77 kg; iw Height 5 ft. 5 in. (165.10 cm); Pain 8/10; 08:56 Pulse 85; Resp 18; Temp 98.6(O); Pulse Ox 99% on R/A; Pain 2/10; ch 10:27 BP 155 / 55; Pulse 76; Resp 18; Temp 98.3; Pulse Ox 97% on R/A; Pain 2/10; ch 11:30 BP 168 / 88; Pulse 71; Resp 18; Temp 98.3; Pulse Ox 99% on R/A; Pain 0/10; ch 12:28 BP 173 / 52; Pulse 74; Resp 18; Temp 99.3; Pulse Ox 96% on R/A; Pain 0/10; ch 12:49 BP 177 / 63; Pulse 83; Resp 22; Temp 99.1; Pulse Ox 96% on R/A; Pain 2/10; ch 07:18 Body Mass Index 24.13 (65.77 kg, 165.10 cm) iw ED Course: 06:59 Patient arrived in ED. ds1 07:15 Escobar Rhoades PA is PHCP. janet 07:15 Raudel Agudelo MD is Attending Physician. [facility] 07:18 Yajaira Ramirez, RN is Primary Nurse. ch 07:18 Triage completed. iw 07:36 EKG done, by thermoplastic technician. reviewed by Escobar BLOOM. 3 07:39 X-ray completed. Portable x-ray completed in exam room. Patient tolerated procedure jb2 well. 07:40 XRAY Chest (1 view) In Process Unspecified. EDMS 08:30 No apparent distress. Resting quietly. ch 08:30 No provider procedures requiring assistance completed. Inserted saline lock: 20 gauge ch in right antecubital area, using aseptic technique. Blood collected. Missed attempt(s): 22 gauge in right forearm. Bleeding controlled, band aid applied, catheter tip intact. 08:55 T\T\S collected, blood band applied to patient. jb1 10:28 Patient has correct armband on for positive identification. Placed in gown. Bed in low ch position. Call light in reach. Side rails up X 1. Side rails up X2. Adult w/ patient. geography professor on. Pulse ox on. NIBP on. Warm blanket given. 11:38 connected a Doctor from [facility] for patient transfer consulation. 13:23 \T\[id number] initiated a transfer with Romina Peña at the [facility] in the attempt to transfer the patient to [facility]/ \T\[id number] Administrative approval given by Romina Peña RN / Pt going to the Heart floor/ Report to be called to [phone]/ Dr. Jones has accepted the patient in transfer/. Administered Medications: 07:35 Drug: DuoNeb (3:1) (2.5 mg - 0.5 mg) 3 ml Route: Nebulizer; 12:30 Follow up: Response: No adverse reaction; Marked relief of symptoms Point of Care Testing: Guaiac: 07:32 Stool Guaiac: Negative; Stool Hemoccult Control: Pass; janet Outcome: 12:54 ER care complete, transfer ordered by . janet 13:35 Patient left the ED. Signatures: Dispatcher [employer] EDMS Parish Bynum jb1 Yajaira Ramirez, RN Escobar Mesa ch, PA PA jmm Buechter, Jesse jb2 Maryam Greenberg ds1 Stephanie Dwyer, JONH RN Radha Corcoran Shakira 3
[2017-11-25 13:50] VITALS: BP 177/63; TEMP 99.1; O2SAT 96
== END 2017-11-25 13:35 ==
LOC: ER 06:58
DX: D64.9 Anemia, unspecified (principal); I12.0 Hypertensive chronic kidney disease with stage 5 chronic kidney disease or end stage renal disease; E11.22 Type 2 diabetes mellitus with diabetic chronic kidney disease; N18.6 End stage renal disease; I50.9 Heart failure, unspecified; Z79.01 Long term (current) use of anticoagulants; Z79.82 Long term (current) use of aspirin; Z99.2 Dependence on renal dialysis
CPT/HCPCS: 36415; 71045; 80048; 80076; 82550; 82553; 83735; 83880; 84484; 85025; 85610; 85730; 86850; 86900; 86901; 87804; 93005; 94640; 99285

== ENCOUNTER 2018-02-23 08:33 | Inpatient (IN) | payer OTHER ==
--- OUTSIDE RECORDS SUMMARY | 2018-02-23 08:36 | XMS REPORT | Clinical Summary ---
:1930 Author Organization [facility] Address [address] [place] [id number] Care Team Providers Name Role Phone Leonid Marie MD Primary Care Provider Allergies Active Allergy Reactions Severity Noted Date Comments Fexofenadine Other (See Comments) 09/25/2015 Karlene - "makes her sick" per pt daughter Ciprofloxacin Other (See Comments) 09/25/2015 Ciprofloxacin - unknown reaction per pt and pt daughter Gatifloxacin 09/25/2015 Penicillin G Other (See Comments) 09/25/2015 Penicillin - unknown per pt and pt daughter Medications Medication Sig Dispensed Refills Start Date End Date Status aspirin (ECOTRIN) 81 MG Take 81 mg by 0 Active enteric coated tablet mouth daily. atorvastatin (LIPITOR) Take 80 mg by 0 Active 80 MG tablet mouth daily. carvedilol (COREG) 25 Take 25 mg by 0 Active MG tablet mouth 2 (two) times a day with meals. clopidogrel (PLAVIX) 75 Take 75 mg by 0 Active mg tablet mouth daily. docusate sodium Take 100 mg by 0 Active (COLACE) 100 MG capsule mouth 2 (two) times a day. hydrALAZINE Take 100 mg by 0 Active (APRESOLINE) 100 MG mouth 3 (three) tablet times a day. isosorbide mononitrate Take 60 mg by 0 Active (IMDUR) 60 MG 24 hr mouth daily. tablet sitaGLIPtin (JANUVIA) Take 100 mg by 0 Active 100 MG tablet mouth daily. losartan (COZAAR) 100 Take 60 mg by 0 Active MG tablet mouth daily. megestrol (MEGACE) 40 Take 40 mg by 0 Active MG tablet mouth daily. FOLIC ACID/VIT BCOMP,C Take 1 tablet by 0 Active (NEPHRO-FRANK ORAL) mouth daily. NIFEdipine XL Take 90 mg by 0 Active (PROCARDIA XL) 90 MG 24 mouth 2 (two) hr tablet times a day. sertraline (ZOLOFT) 50 Take 50 mg by 0 Active MG tablet mouth daily. Active Problems Not on file Social History Tobacco Use Types Packs/Day Years Used Date Never Smoker Smokeless Tobacco: Never Used Alcohol Use Drinks/Week oz/Week Comments No Sex Assigned at Date Recorded Not on file Job Start Date Occupation Industry Not on file Not on file Not on file Travel History Travel Start Travel End No recent travel history available. Last Filed Vital Signs Not on file Plan of Treatment Health Maintenance Due Date Last Done Comments SHINGRIX VACCINE (1 of 2) 1980 ZOSTER VACCINE 1990 PNEUMOCOCCAL POLYSACCHARIDE VACCINE AGE 65 AND OVER 09/27/1995 PNEUMOCOCCAL-13 09/27/1995 INFLUENZA VACCINE 10/19/2017 Results Not on fileafter 02/22/2017 Insurance Payer Benefit Plan / Group Subscriber ID Type Phone Address MEDICARE MEDICARE PART A AND B xxxxxxxxxx Medicare [place], [place] AETNA A[employer] PPO OPEN CHOICE xxxxxxxxxx PPO Advance Directives Patient has advance care planning documents on file. For more information, please contact:[place] [address]
--- OUTSIDE RECORDS SUMMARY | 2018-02-23 08:36 | XMS REPORT | Clinical Summary ---
:1930 Author Organization [facility] Address [address] [place] [address] Care Team Providers Name Role Phone Unavailable Primary Care Provider Unavailable Allergies Not on File Medications Not on file Active Problems Not on file Social History Tobacco Use Types Packs/Day Years Used Date Never Assessed Sex Assigned at Date Recorded Not on file Job Start Date Occupation Industry Not on file Not on file Not on file Travel History Travel Start Travel End No recent travel history available. Last Filed Vital Signs Not on file Plan of Treatment Not on file Results Not on fileafter 02/22/2017
[2018-02-23 09:55] LABS: Absolute Lymphocytes (CBC) 0.8 K/uL (0.7-4.9); Absolute Monocytes 0.5 K/uL (0.1-1.3); Absolute Neutrophil 2.9 K/uL (1.8-8.0); Basophils % 0.7 % (0-1.3); Eosinophils % 1.8 % (0-4.4); Hematocrit 40.2 % (36.0-45.0); Lymphocytes % 19.1 % (15.3-44.8); MCH 31.7 pg (27.0-35.0); MCV 94.1 fL (80-100); Monocytes % 12.1 % (3.3-12.3); RBC Red Blood Cell Count 4.28 M/uL (3.86-4.86)
--- NOTE | 2018-02-23 09:59 | RAD REPORT ---
EXAM DESCRIPTION: CT - Head Brain Wo Cont - 02/23/2018 9:51 am CLINICAL HISTORY: Transient alteration of awareness COMPARISON: CT imaging December 09 TECHNIQUE: Axial 5 mm thick images of the head were obtained without IV contrast. All CT scans are performed using dose optimization technique as appropriate and may include automated exposure control or mA/KV adjustment according to patient size. FINDINGS: No intracranial hemorrhage, mass, edema or shift of mid-line structures. No acute infarcti on changes seen. Atrophy and chronic ischemic changes match the prior study. Ventricles remain in pro portion to volume loss. Vascular calcifications are present. Mastoid air cells and visualized portions of the paranasal sinuses are clear. No acute bony findings. IMPRESSION: Negative non-contrast CT head examination for acute finding. Atrophy and chronic ischemic changes are present matching the November study.
[2018-02-23 10:05] LABS: Potassium 3.4 mmol/L (3.5-5.1)
--- NOTE | 2018-02-23 10:18 | ER ---
Nurse's Notes [facility] Name: Erendira Graham Age: 87 yrs Sex: Female : 1930 Arrival Date: 02/23/2018 Time: 08:37 Bed 14 Private MD: Anna Marie Hannah Diagnosis: Delirium due to known physiological condition;Urinary tract infection, site not specified Presentation: 02/23 09:02 Presenting complaint: Child states: pt got shingles last , got a prescription ch for acyclovere on Tuesday. did not go to dialysis on Tuesday because she didn't feel well. Tuesday evening started hallucinating, seems worse today. she is talking out of her head. denies any other complaints. Transition of care: patient was not received from another setting of care. Onset of symptoms was February 22, 2018 at 15:00. Risk Assessment: Do you want to hurt yourself or someone else? Patient reports no desire to harm self or others. Initial Sepsis Screen: Does the patient meet any 2 criteria? No. Patient's initial sepsis screen is negative. Does the patient have a suspected source of infection? No. Patient's initial sepsis screen is negative. Care prior to arrival: None. family states pt did not get any of her home medications this morning. 09:02 Method Of Arrival: Wheelchair ch 09:02 Acuity: KEKE 3 ch Triage Assessment: 09:10 General: Appears in no apparent distress. comfortable, Behavior is calm, cooperative. Pain: Denies pain. Neuro: Level of Consciousness is awake, alert, obeys commands, confused, Oriented to person, place, Easement Worker are equal bilaterally Moves all extremities. Gait is unsteady, normal per family. pt walks some with a walker, transfers from wheelchair to bed with small assistance, mainly direction . Speech is normal, Facial symmetry appears normal, Facial symmetry: tongue is midline. Cardiovascular: Denies chest pain, lightheadedness, nausea, palpitations, shortness of breath. Respiratory: Airway is patent Respiratory effort is even, unlabored, Breath sounds are diminished bilaterally. GI: Abdomen is round non-distended, Bowel sounds present X 4 quads. Abd is soft and non tender X 4 quads. Derm: Skin is fragile, Skin is dry, Skin is normal, brown, Skin temperature is warm. Musculoskeletal: No signs and/or symptoms reported regarding the musculoskeletal system. Historical: - Allergies: 09:10 Karlene; ch 09:10 Bactrim; ch 09:10 Ciprofloxacin; ch 09:10 Demerol; ch 09:10 PENICILLINS; ch 09:10 Talwin; ch 09:10 tequin; ch - Home Meds: 09:10 aspirin 81 mg Oral TbEC 1 tab once daily [Active]; docusate sodium 100 mg Oral tab 2 ch times per day [Active]; doxazosin 8 mg Oral tab twice a day [Active]; hydralazine 100 mg Oral tab 3 times per day [Active]; isosorbide mononitrate 30 mg Oral Tb24 twice a day [Active]; melatonin 5 mg Oral tab nightly [Active]; minoxidil 2.5 mg Oral tab 1 tabs 2 times per day [Active]; nifedipine 90 mg Oral TbER twice a day [Active]; Plavix 75 mg Oral tab 1 tab once daily [Active]; clonidine HCl 0.3 mg Oral tab 1 tab 2 times per day [Active]; Tums 300 mg (750 mg) Oral chew [Active]; acetaminophen-codeine 300-30 mg Oral tab 1 tab as needed for Pain [Active]; sertraline 50 mg oral tab 1 tab once daily [Active]; DIALYVITE 800 0.8 mg oral tab [Active]; Vitamin D Oral 5000 unit daily [Active]; - PMHx: 09:10 CHF; Diabetes - NIDDM; Dialysis; ESRD; Hypertension; ch - PSHx: 09:10 L arm fistula; Cholecystectomy; Carotid surgery; Kidney stents; ch - Immunization history:: Adult Immunizations up to date. - Social history:: Smoking status: Patient/guardian denies using tobacco. - Ebola Screening: : Patient negative for fever greater than or equal to 101.5 degrees Fahrenheit, and additional compatible Ebola Virus Disease symptoms Patient denies exposure to infectious person Patient denies travel to an Ebola-affected area in the 21 days before illness onset No symptoms or risks identified at this time. - Family history:: not pertinent. - Hospitalizations: : No recent hospitalization is reported. Screenin:55 Abuse screen: Denies threats or abuse. Denies injuries from another. Nutritional ch screening: No deficits noted. Tuberculosis screening: No symptoms or risk factors identified. Fall Risk None identified. Assessment: 09:55 Reassessment: Patient appears in no apparent distress at this time. No changes from previously documented assessment. Patient and/or family updated on plan of care and expected duration. Pain level reassessed. 11:19 Reassessment: Patient appears in no apparent distress at this time. No changes from previously documented assessment. Patient and/or family updated on plan of care and expected duration. Pain level reassessed. Patient denies pain at this time. 11:20 Reassessment: Patient appears in no apparent distress at this time. pt placed on waffle mattress, family updated on admission and possible wait time of 3-4 hours. 11:55 Reassessment: Patient appears in no apparent distress at this time. Patient and/or family updated on plan of care and expected duration. Pain level reassessed. 13:41 Reassessment: Patient appears in no apparent distress at this time. No changes from previously documented assessment. Patient and/or family updated on plan of care and expected duration. Pain level reassessed. Vital Signs: 09:10 BP 180 / 67; Pulse 80; Resp 16; Temp 98.6(O); Pulse Ox 99% on R/A; Weight 66.22 kg; Height 5 ft. 5 in. (165.10 cm); Pain 0/10; 09:55 BP 192 / 88; Pulse 84; Resp 19; Temp 98.8(O); Pulse Ox 98% on R/A; ch 11:19 BP 204 / 60; Pulse 81; Resp 15; Temp 98.4(O); Pulse Ox 97% on R/A; Pain 0/10; ch 11:55 BP 187 / 52; Pulse 83; Resp 22; Temp 98.5; Pulse Ox 94% on R/A; Pain 0/10; ch 13:37 BP 198 / 101; Pulse 84; Resp 16; Temp 98.6; Pulse Ox 99% on R/A; Pain 0/10; ch 09:10 Body Mass Index 24.30 (66.22 kg, 165.10 cm) ED Course: 08:37 Patient arrived in ED. sb2 08:38 Anna Marie Hannah MD is Private Physician. sb2 08:42 Yajaira Ramirez, JONH is Primary Nurse. 08:52 Francis Avila MD is Attending Physician. rn 09:00 Patient has correct armband on for positive identification. Placed in gown. Bed in low ch position. Call light in reach. Side rails up X2. Adult w/ patient. ekg monitor on. Pulse ox on. NIBP on. 09:00 Warm blanket given. 09:04 Triage completed. 09:10 Arm band placed on left wrist. Patient placed in an exam room, on a stretcher, on monitoring and evaluation advisor, on pulse oximetry. 09:25 No provider procedures requiring assistance completed. Inserted saline lock: 22 gauge ch in right forearm, using aseptic technique. 09:25 Straight cath inserted, using sterile technique, 14 Fr. Specimen obtained. Returned ch thick opaque dark yellow/mcintyre urine, with chunks. approx 350mL. family states pt urinates bout once every two days. . 09:27 Radiology exam delayed due to nurse in room with patient at this time, per legal instructor vr mallory. 09:29 EKG done, by certified ophthalmic technician. reviewed by Francis Avila MD. at1 09:51 CT Head Brain wo Cont In Process Unspecified. EDMS 09:51 CT completed. Patient tolerated procedure well. Patient moved to CT via stretcher. vr Patient moved back from CT. 10:09 X-ray completed. Patient tolerated procedure well. Patient moved back from radiology. tm4 10:11 XRAY Chest (1 view) In Process Unspecified. EDMS 10:17 Adrián Lui MD is Hospitalizing Provider. rn 13:37 No apparent distress. Resting quietly. ch 13:37 Patient admitted, IV remains in place. Administered Medications: 11:19 CANCELLED (wrong order): Rocephin - (cefTRIAXone) 1 grams IVPB once over 30 mins; (mix ch in 50 mL NS) 11:21 Drug: Rocephin 1 grams Route: IV; Rate: calculated rate; Site: right forearm; 11:54 Follow up: IV Status: Completed infusion; IV Intake: 10ml 11:55 Follow up: Response: No adverse reaction Intake: 11:54 IV: 10ml; Total: 10ml. Outcome: 10:17 Decision to Hospitalize by Provider. rn 13:41 Admitted to Med/surg accompanied by tech, via stretcher, with chart, Report called to Radha 13:41 Condition: stable 13:41 Instructed on the need for admit. 13:58 Patient left the ED. Signatures: Dispatcher [employer] EDYajaira Gutierrez, JONH BORJA Vy Garibay tm4 Francis Avila MD MD rn Davis, Victoria vr Gonzales, Amanda, leather case finisher EKG Tat1 Lillian Ferrell sb2 Corrections: (The following items were deleted from the chart) 09:27 09:25 Patient moved to [place] vr vr
--- NOTE | 2018-02-23 10:18 | EDPHYS ---
Physician Documentation [facility] Name: Erendira Graham Age: 87 yrs Sex: Female : 1930 Arrival Date: 02/23/2018 Time: 08:37 Bed 14 Private MD: Anna Marie Hannah ED Physician Francis Avila HPI: 02/23 10:11 This 87 yrs old Black Female presents to ER via Wheelchair with complaints of rn Hallucinations. 10:11 The patient presents with confusion, decreased mental status, decreased responsiveness. rn Onset: The symptoms/episode began/occurred yesterday. Possible causes: unknown. Current symptoms: In the emergency department the patient's symptoms are unchanged from the initial presentation. It is unknown whether or not the patient has had similar symptoms in the past. Daughter reports AMS, seems confused, is hallucinating, decreased responsiveness that comes and goes, since yesterday, did start acyclovir for zoster recently and daughter concerned may be side effect. No head injury, no vomiting/diarrhea.. Historical: - Allergies: 09:10 Karlene; ch 09:10 Bactrim; ch 09:10 Ciprofloxacin; ch 09:10 Demerol; ch 09:10 PENICILLINS; ch 09:10 Talwin; ch 09:10 tequin; ch - Home Meds: 09:10 aspirin 81 mg Oral TbEC 1 tab once daily [Active]; docusate sodium 100 mg Oral tab 2 ch times per day [Active]; doxazosin 8 mg Oral tab twice a day [Active]; hydralazine 100 mg Oral tab 3 times per day [Active]; isosorbide mononitrate 30 mg Oral Tb24 twice a day [Active]; melatonin 5 mg Oral tab nightly [Active]; minoxidil 2.5 mg Oral tab 1 tabs 2 times per day [Active]; nifedipine 90 mg Oral TbER twice a day [Active]; Plavix 75 mg Oral tab 1 tab once daily [Active]; clonidine HCl 0.3 mg Oral tab 1 tab 2 times per day [Active]; Tums 300 mg (750 mg) Oral chew [Active]; acetaminophen-codeine 300-30 mg Oral tab 1 tab as needed for Pain [Active]; sertraline 50 mg oral tab 1 tab once daily [Active]; DIALYVITE 800 0.8 mg oral tab [Active]; Vitamin D Oral 5000 unit daily [Active]; - PMHx: 09:10 CHF; Diabetes - NIDDM; Dialysis; ESRD; Hypertension; ch - PSHx: 09:10 L arm fistula; Cholecystectomy; Carotid surgery; Kidney stents; ch - Immunization history:: Adult Immunizations up to date. - Social history:: Smoking status: Patient/guardian denies using tobacco. - Ebola Screening: : Patient negative for fever greater than or equal to 101.5 degrees Fahrenheit, and additional compatible Ebola Virus Disease symptoms Patient denies exposure to infectious person Patient denies travel to an Ebola-affected area in the 21 days before illness onset No symptoms or risks identified at this time. - Family history:: not pertinent. - Hospitalizations: : No recent hospitalization is reported. ROS: 10:11 Constitutional: Negative for fever, chills, and weight loss, Eyes: Negative for injury, rn pain, redness, and discharge, Cardiovascular: Negative for chest pain, palpitations, and edema, Respiratory: Negative for shortness of breath, cough, wheezing, and pleuritic chest pain, Abdomen/GI: Negative for abdominal pain, nausea, vomiting, diarrhea, and constipation, Back: Negative for injury and pain, MS/Extremity: Negative for injury and deformity, Skin: Negative for injury, rash, and discoloration, Neuro: + weakness and confusion Exam: 10:11 Constitutional: Thin female, sleeping, slow to wake up but responds to voice rn Head/Face: Normocephalic, atraumatic. Eyes: Pupils equal round and reactive to light, extra-ocular motions intact. Periorbital areas with no swelling, redness, or edema. Neck: Trachea midline, Supple, full range of motion without nuchal rigidity, or vertebral point tenderness. No Meningismus. Cardiovascular: Regular rate, No pulse deficits. Respiratory: + bibasilar crackles, no no wheezing, no increased work of breathing Abdomen/GI: soft, non-tender MS/ Extremity: Pulses equal, no cyanosis Neuro: Awake and alert, GCS 15, oriented to person, place, time, and situation. Cranial nerves II-XII grossly intact. Motor strength 4/5 in all extremities. Sensory grossly intact. Vital Signs: 09:10 BP 180 / 67; Pulse 80; Resp 16; Temp 98.6(O); Pulse Ox 99% on R/A; Weight 66.22 kg; ch Height 5 ft. 5 in. (165.10 cm); Pain 0/10; 09:55 BP 192 / 88; Pulse 84; Resp 19; Temp 98.8(O); Pulse Ox 98% on R/A; ch 11:19 BP 204 / 60; Pulse 81; Resp 15; Temp 98.4(O); Pulse Ox 97% on R/A; Pain 0/10; ch 11:55 BP 187 / 52; Pulse 83; Resp 22; Temp 98.5; Pulse Ox 94% on R/A; Pain 0/10; ch 13:37 BP 198 / 101; Pulse 84; Resp 16; Temp 98.6; Pulse Ox 99% on R/A; Pain 0/10; ch 09:10 Body Mass Index 24.30 (66.22 kg, 165.10 cm) ch MDM: 08:52 Patient medically screened. rn 10:11 Differential Diagnosis: pneumonia, sepsis, UTI, volume depletion. Data reviewed: vital rn signs, nurses notes. Data reviewed: lab test result(s), EKG, radiologic studies, CT scan, plain films, and as a result, I will admit patient. Counseling: I had a detailed discussion with the patient and/or guardian regarding: the historical points, exam findings, and any diagnostic results supporting the discharge/admit diagnosis, lab results, radiology results, the need for further work-up and treatment in the hospital. Admission orders: after a detailed discussion of the patient's condition and case, the admit orders are written by me. 02/23 09:01 Order name: CBC with Diff; Complete Time: 10:01 rn 02/23 09:01 Order name: Basic Metabolic Panel; Complete Time: 10:30 rn 02/23 09:01 Order name: Urine Culture rn 02/23 09:01 Order name: Urine Microscopic Only; Complete Time: 10:30 rn 12 09:41 Order name: Urine Dipstick--Ancillary (enter results); Complete Time: 10:34 eb 02/23 12:22 Order name: CBC with Automated Diff EDMS 02/23 12:22 Order name: CBC with Automated Diff EDMS 02/23 12:22 Order name: CBC with Automated Diff EDMS 02/23 12:22 Order name: CBC with Automated Diff EDMS 02/23 12:22 Order name: CBC with Automated Diff EDMS 02/23 12:22 Order name: Comprehensive Metabolic Panel EDMS 02/23 12:22 Order name: Comprehensive Metabolic Panel EDMS 02/23 12:22 Order name: Comprehensive Metabolic Panel EDMS 02/23 12:22 Order name: Comprehensive Metabolic Panel EDMS 02/23 09:01 Order name: IV Start; Complete Time: 09:59 rn 02/23 09:01 Order name: Urine Dipstick-Ancillary (obtain specimen); Complete Time: 09:59 rn 02/23 09:01 Order name: CT Head Brain wo Cont; Complete Time: 10:01 rn 02/23 09:01 Order name: XRAY Chest (1 view); Complete Time: 10:30 rn 02/23 09:02 Order name: EKG; Complete Time: 09:10 rn 02/23 09:02 Order name: EKG - Nurse/Tech; Complete Time: 09:59 rn 02/23 12:22 Order name: Renal EDMS 02/23 12:22 Order name: Comprehensive Metabolic Panel EDMS Administered Medications: 11:19 CANCELLED (wrong order): Rocephin - (cefTRIAXone) 1 grams IVPB once over 30 mins; (mix ch in 50 mL NS) 11:21 Drug: Rocephin 1 grams Route: IV; Rate: calculated rate; Site: right forearm; ch 11:54 Follow up: IV Status: Completed infusion; IV Intake: 10ml ch 11:55 Follow up: Response: No adverse reaction ch Disposition: 02/23/18 10:17 Hospitalization ordered by Adrián Lui for Inpatient Admission. Preliminary diagnosis are Delirium due to known physiological condition, Urinary tract infection, site not specified. - Bed requested for Telemetry/MedSurg (Inpatient). - Status is Inpatient Admission. ch - Condition is Stable. - Problem is new. - Symptoms have improved. UTI on Admission? Yes Signatures: Dispatcher [employer] EDMS Yajaira Ramirez RN RN ch Woody, Diana, RN RN dw Nieto, Roman, MD MD rn Botello, Elizabeth eb Corrections: (The following items were deleted from the chart) 10:29 10:17 Hospitalization Ordered by Adrián Lui MD for Inpatient Admission. Preliminary eb diagnosis is Delirium due to known physiological condition; Urinary tract infection, site not specified. Bed requested for Telemetry/MedSurg (Inpatient). Status is Inpatient Admission. Condition is Stable. Problem is new. Symptoms have improved. UTI on Admission? Yes. rn 11:19 11:07 Rocephin - (cefTRIAXone) 1 grams IVPB once over 30 mins; (mix in 50 mL NS) ch ordered. rn 13:08 10:29 02/23/2018 10:17 Hospitalization Ordered by Adrián Lui MD for Inpatient dw Admission. Preliminary diagnosis is Delirium due to known physiological condition; Urinary tract infection, site not specified. Bed requested for Telemetry/MedSurg (Inpatient). Status is Inpatient Admission. Condition is Stable. Problem is new. Symptoms have improved. UTI on Admission? Yes. eb 13:58 13:08 02/23/2018 10:17 Hospitalization Ordered by Adrián Lui MD for Inpatient ch Admission. Preliminary diagnosis is Delirium due to known physiological condition; Urinary tract infection, site not specified. Bed requested for Telemetry/MedSurg (Inpatient). Status is Inpatient Admission. Condition is Stable. Problem is new. Symptoms have improved. UTI on Admission? Yes. dw
[2018-02-23 10:23] LABS: Urine Bacteria >50 /HPF (<20)
[2018-02-23 10:24] LABS: Urine Culture Reflex Order NOT NEEDED
--- NOTE | 2018-02-23 10:26 | RAD REPORT ---
EXAM DESCRIPTION: RAD - Chest Single View - 02/23/2018 10:10 am CLINICAL HISTORY: confused Chest pain. COMPARISON: Chest Single View dated 12/09/2017; Chest Single View dated 11/25/2017; Chest Single View d ated 07/22/2017; CHEST PA AND LAT 2 VIEW dated 02/11/2015 FINDINGS: Portable technique limits examination quality. Mild interstitial pulmonary edema is present. The heart is mildly to moderately enlarged in size. No displaced fractures. IMPRESSION: Mild CHF versus volume overload pattern.
[2018-02-23 10:33] LABS: Urine Blood 2+ (NEG); Urine Glucose NEGATIVE (NEG); Urine Protein 3+ (NEG); Urine Specific Gravity 1.025 (1.005-1.030)
--- NOTE | 2018-02-23 11:28 | EKG ---
Test Date: 2018-02-23 Test Time: 09:24:22 Fleet Manager: MAURICE MEASUREMENT RESULTS: Intervals: Rate: 79 SD: 204 QRSD: 90 QT: 386 QTc: 442 Bolt: P: 76 SD: 204 QRS: -37 T: 8 INTERPRETIVE STATEMENTS: Sinus rhythm with premature atrial complexes Left axis deviation Anteroseptal infarct, age undetermined Abnormal ECG Compared to ECG 12/09/2017 08:16:47 Atrial premature complex(es) now present Left-axis deviation now present Sinus arrhythmia no longer present Ventricular premature complex(es) no longer present Myocardial infarct finding still present Electronically Signed On 02-23-18 11:27:36 GOLD ASSAYER by Juan Pablo Leroy
[2018-02-23] MEDS ORDERED: CEFTRIAXONE/SWI 1gm 1 GM/10 ML SYR ONE (11:31)
[2018-02-23] MEDS ORDERED: ACETAMINOPHEN 500 MG TAB PO PRN (12:18)
[2018-02-23] MEDS ORDERED: MELATONIN 5 MG PO PRN (17:22)
[2018-02-23] MEDS ORDERED: MELATONIN 5 MG TABLET PO PRN (17:48)
[2018-02-23] MEDS: HYDRALAZINE HCL 25 MG TABLET PO SCH (18:04)
[2018-02-23] MEDS: ONDANSETRON 4 MG/2 ML VIAL IV PRN ×2 (18:07→22:19)
[2018-02-23] MEDS ORDERED: DOXAZOSIN 2 MG TAB ONE (19:50)
[2018-02-23] MEDS ORDERED: HOME MED 1 EA UNK (Ramipril [Altace] 10 MG) PO SCH (21:00)
[2018-02-23] MEDS ORDERED: HOME MED 1 EA UNK (Hydralazine Hcl [Apresoline] 100 MG) PO SCH (21:00)
[2018-02-23] MEDS ORDERED: cloNIDine HCl 0.1 MG TAB PO SCH (21:00)
[2018-02-23] MEDS ORDERED: DOXAZOSIN MESYLATE 8 MG PO SCH (21:00)
[2018-02-23] MEDS: DOXAZOSIN 4 MG TAB PO SCH (21:00)
[2018-02-23] MEDS: NIFEDIPINE XL 90 MG TABLET PO SCH (21:36)
--- NOTE | 2018-02-23 21:36 | P.HP ---
Certification for Inpatient Patient admitted to: Inpatient With expected LOS: >2 Midnights Practitioner: I am a practitioner with admitting privileges, knowledge of patient current condition, hospital course, and medical plan of care. Services: Services provided to patient in accordance with Admission requirements found in Title 42 Section 412.3 of the Code of Federal Regulations Patient History Date of Service: 02/24/18 Reason for admission: Altered mentation History of Present Illness: This is an 87-year-old female with history of ESRD, type 2 diabetes, CHF, hypertension admitted for altered mental status. Per daughter, saw her primary care doctor 3 days prior to admission for shingles and she was started on Valtrex. The day prior to admission, daughter noted that she was getting more and more irritated, which progressively worsened. On the morning of admission, daughter states that patient was more confused, unable to really recognize family. Denies any fever, chills, chest pain, shortness of breath, abdominal complaints. Per daughter, patient still makes urine the very intermittent. She is in ESRD, hemodialysis patient of Dr. Guardado. In the ED, patient received Rocephin. At the time of my exam, patient was with decreased alertness, oriented x1. Daughter at bedside, feeding patient was eating when fed without any problems. Per daughter, baseline is that patient was independent, alert oriented x3 prior to admission. She was walking independently with a walker. Allergies ciprofloxacin Allergy (Verified 07/22/17 22:57) Rash fexofenadine Allergy (Verified 07/22/17 22:57) Rash gatifloxacin Allergy (Verified 07/22/17 22:57) Hives/Rash Penicillins Allergy (Verified 07/22/17 22:57) Hives/Rash pentazocine [From Talwin] Allergy (Verified 07/22/17 22:57) Unknown Home Medications: Aspirin [Aspirin EC 81 MG] 81 mg PO DAILY 02/08/15 Atorvastatin Calcium [Lipitor] 80 mg PO BEDTIME 02/08/15 Calcium Carbonate [Tums Regular*] 1,000 mg PO BID 02/08/15 Clopidogrel Bisulfate [Plavix*] 75 mg PO DAILY 02/08/15 Hydralazine HCl [Apresoline] 100 mg PO TID 02/08/15 Isosorbide Mononitrate [Isosorbide Mononitrate ER] 90 mg PO DAILY 02/08/15 Sertraline [Zoloft*] 50 mg PO BEDTIME 02/08/15 Docusate [Colace Cap*] 100 mg PO BID #60 cap 02/19/15 Nifedipine Xl [Procardia XL*] 90 mg PO BID #60 tab 02/20/15 Cholecalciferol (Vitamin D3) [Vitamin D3] 1 cap PO Q48H 07/22/17 Codeine/APAP [Tylenol #3*] 1 tab PO Q6H PRN 07/22/17 Doxazosin Mesylate [Cardura] 8 mg PO BID 07/22/17 Melatonin 5 mg PO BEDTIME PRN PRN 07/22/17 Ramipril [Altace] 10 mg PO BEDTIME 07/22/17 Vit B Comp&C/Folic Acid/Vit D3 [Dialyvite 800 Plus D Wafer] 1 tab PO BEDTIME 07/06 cloNIDine HCl [Catapres*] 0.1 mg PO BID 07/22/17 - Past Medical/Surgical History Has patient received pneumonia vaccine in the past: Yes Diabetic: Yes -: DEPRESSION -: CHRONIC KIDNEY DISEASE ON HD -: CAD -: MALIGNANT HYPERTENSION -: HYPERLIPIDEMIA -: AORTIC STENOSIS -: RENAL ARTERY STENOSIS -: STENT PLACEMENT -: gall bladder removed -: R kidney stent placement -: cataract bilateral repair -: left carotid artery repair. -: left AVF - Social History Smoking Status: Never smoker Alcohol use: No CD- Drugs: No Caffeine use: Yes Place of Residence: Home Review of Systems General: As per HPI, Unremarkable Eyes: Unremarkable ENT: Unremarkable Respiratory: Unremarkable Cardiovascular: Unremarkable Gastrointestinal: Unremarkable Genitourinary: As per HPI, Unremarkable Musculoskeletal: Unremarkable Integumentary: Unremarkable Neurological: Confusion, As per HPI Lymphatics: Unremarkable Physical Examination - Vital Signs Temperature: 97.6 F Blood Pressure: 206/77 Pulse: 83 Respirations: 18 Pulse Ox (%): 92 - Physical Exam General: In no apparent distress, Oriented x1, Other (Ill looking, in no acute distress) HEENT: Atraumatic, PERRLA, Mucous membr. moist/pink, EOMI, Sclerae nonicteric Neck: Supple, 2+ carotid pulse no bruit, No LAD, Without JVD or thyroid abnormality Respiratory: Clear to auscultation bilaterally, Normal air movement Cardiovascular: No edema, Regular rate/rhythm, Normal S1 S2 Gastrointestinal: Normal bowel sounds, No tenderness Musculoskeletal: No tenderness Integumentary: No rashes Neurological: Other (Confused, oriented x1), Abnormal strength - Studies Laboratory Data (last 24 hrs) 02/23/18 09:31: Sodium 135 L, Potassium 3.4 L, BUN 49 H, Creatinine 5.70 H*, Glucose 115 H 02/23/18 09:31: WBC 4.4, Hgb 13.5, Hct 40.2, Plt Count 127 L Assessment and Plan - Plan This is a 87 yr old female with: UTI IV antibiotics Urine culture pending AMS Metabolic encephalopathy Likely 2/2 UTI vs recent valtrex continue IV antibiotics, hold Valtrex at this time. CT head negative, if symptoms persist, may consider MRI ESRD on HD M,W,F Dr. Guardado's group - nephrology consulted. Sharifa Started valtrex on tuesday, given from PCP office started getting more irritated 1 day after starting medication then started getting more confused today, which made family bring patient to the ER. will hold valtrex, pain control Essential hypertension Blood pressure is elevated, restart home medications. Will continue to monitor and adjust as needed. Diabetes mellitus, type 2 Accu-Cheks, mild dose sliding scale. Will continue to monitor and adjust as needed. Per daughter, diabetes is diet controlled at home. Patient not any medications at this time DVT prophylaxis: Aspirin and Plavix, heparin with dialysis GI prophylaxis: Not needed Diet: Renal Disposition: Admit to floor with tele. Pending dialysis and symptomatic improvement - Advance Directives Does patient have a Living Will: No Does patient have a Durable POA for Healthcare: No Physician Review: Patient Assessed, Agree with Above Assessment and Plan Time Spent Managing Pts Care (In Minutes): 55
[2018-02-23] MEDS: RAMIPRIL 5 MG CAP PO SCH (21:41)
[2018-02-23] MEDS: DOCUSATE NA 100 MG CAP PO SCH (21:41)
[2018-02-23] MEDS: ATORVASTATIN 80 MG TAB PO SCH (21:41)
[2018-02-23] MEDS: SERTRALINE HCL 50 MG TAB PO SCH (21:41)
[2018-02-23] MEDS: MULTIVIT W/ MINERAL TAB PO SCH (21:43)
[2018-02-23] MEDS ORDERED: MANNITOL 25% 12.5 GM/50 ML VIAL IV PRN (22:35)
[2018-02-23] MEDS ORDERED: NA CHLORIDE 0.9% 1,000 ML IV PRN (22:35)
[2018-02-23] MEDS ORDERED: ALBUMIN HUMAN 25% 50 ML IV SCH (23:00)
[2018-02-24] MEDS: METOPROLOL TARTRATE 5 MG/5 ML INJ IV SCH ×2 (00:10→00:15)
[2018-02-24] MEDS ORDERED: HYDRALAZINE HCL 20 MG/ML VIAL IV ONE ×2 (02:39→22:48)
[2018-02-24] MEDS ORDERED: DOXAZOSIN 4 MG TAB PO ONE (02:40)
[2018-02-24] MEDS: ONDANSETRON 4 MG/2 ML VIAL IV PRN ×2 (03:18→08:19)
[2018-02-24] MEDS ORDERED: DOXAZOSIN 2 MG TAB ONE ×2 (05:46→19:38)
[2018-02-24] MEDS: DOXAZOSIN 4 MG TAB PO SCH ×2 (05:59→21:00)
[2018-02-24] MEDS ORDERED: METOPROLOL TAR 50 MG TAB PO ONE (06:14)
[2018-02-24] MEDS: cloNIDine HCl 0.1 MG TAB PO SCH ×4 (06:35→21:00)
[2018-02-24 06:37] LABS: Absolute Lymphocytes (CBC) 0.8 K/uL (0.7-4.9); Absolute Monocytes 0.4 K/uL (0.1-1.3); Absolute Neutrophil 5.5 K/uL (1.8-8.0); Basophils % 0.6 % (0-1.3); Eosinophils % 0.4 % (0-4.4); Hematocrit 41.9 % (36.0-45.0); Lymphocytes % 11.4 % (15.3-44.8); MCH 32.2 pg (27.0-35.0); MCV 93.1 fL (80-100); MPV 8.6 fL (7.6-11.3); Monocytes % 6.2 % (3.3-12.3); RBC Red Blood Cell Count 4.51 M/uL (3.86-4.86)
[2018-02-24 07:03] LABS: Albumin 3.1 g/dL (3.4-5.0); Bilirubin Total 0.4 mg/dL (0.2-1.0); Potassium 3.9 mmol/L (3.5-5.1); Protein, Total 7.1 g/dL (6.4-8.2)
[2018-02-24] MEDS: CEFTRIAXONE/SWI 1gm 1 GM/10 ML SYR IVP SCH (08:20)
[2018-02-24] MEDS: DOCUSATE NA 100 MG CAP PO SCH ×2 (08:26→21:00)
[2018-02-24] MEDS: ISOSORBIDE MONO SR 60 MG TAB PO SCH (08:26)
[2018-02-24] MEDS: HYDRALAZINE HCL 25 MG TABLET PO SCH ×3 (08:26→21:00)
[2018-02-24] MEDS: ASPIRIN EC 81 MG TAB PO SCH (08:26)
[2018-02-24] MEDS: CLOPIDOGREL 75 MG TABLET PO SCH (08:29)
[2018-02-24] MEDS: NIFEDIPINE XL 90 MG TABLET PO SCH ×2 (08:29→21:00)
--- NOTE | 2018-02-24 12:18 | P.PN ---
Subjective Date of Service: 02/24/18 Chief Complaint: Altered mentation Patient seen and examined at bedside. Daughter at bedside. Chart reviewed and case discussed with nursing staff. Per daughter, patient very agitated overnight. No changes in confusion/ orientation. Blood pressure remains elevated. She is pending dialysis today Review of Systems As noted Physical Examination - Vital Signs Temperature: 97.6 F Blood Pressure: 206/77 Pulse: 83 Respirations: 18 Pulse Ox (%): 92 - Physical Exam General: In no apparent distress, Oriented x1, Confused HEENT: Atraumatic, PERRLA, EOMI Neck: Supple, JVD not distended Respiratory: Clear to auscultation bilaterally, Normal air movement Cardiovascular: Regular rate/rhythm, Normal S1 S2 Gastrointestinal: Normal bowel sounds, No tenderness Musculoskeletal: No tenderness Integumentary: No rashes Lymphatics: No axilla or inguinal lymphadenopathy - Studies Microbiology Data (last 24 hrs): 02/23/18 09:30 Catheterized Urine Silas Count - Final >100,000 CFU/ML. 02/23/18 09:30 Catheterized Urine - Final Assessment And Plan - Plan This is a 87 yr old female with: UTI Urine culture with yeast No fevers, no WBC elevation. Blood cultures pending This may be a colonization, unsure. Lewis risk factors patient is a diabetic. No recent instrumentation or Lewis catheter placement. Patient intermittently makes urine (which is normal for her) and no changes in urine noted at this time. Will continue to monitor, follow blood cultures. If positive, will treat with anti fungal medications. Will continue antibiotics in the meanwhile. AMS Metabolic encephalopathy Likely 2/2 UTI vs recent valtrex continue IV antibiotics, hold Valtrex at this time. CT head negative, if symptoms persist after dialysis session, may consider MRI ESRD on HD M,W,F Dr. Guardado's group - nephrology consulted. Recommendations appreciated. Pending dialysis today Shingles Started valtrex on tuesday, given from PCP office started getting more irritated 1 day after starting medication then started getting more confused today, which made family bring patient to the ER. will hold valtrex, pain control if needed Essential hypertension Blood pressure remains elevated after restarting home medications. Will monitor after dialysis. May need to make adjustments to medication. Blood pressure is elevated, restart home medications. Will continue to monitor and adjust as needed. Diabetes mellitus, type 2 Accu-Cheks, mild dose sliding scale. Will continue to monitor and adjust as needed. Per daughter, diabetes is diet controlled at home. Patient not any medications at this time DVT prophylaxis: Aspirin and Plavix, heparin with dialysis GI prophylaxis: Not needed Diet: Renal Disposition: Admit to floor with tele. Pending dialysis and symptomatic improvement Physician Review: Patient Assessed, Agree with Above Assessment and Plan Time Spent Managing PTS Care (In Minutes): 35
[2018-02-24] MEDS ORDERED: LORazepam 2 MG/ML VIAL IV ONE (12:59)
[2018-02-24] MEDS: EPOETIN ALFA 10,000 UNIT/ML VIAL IV SCH (13:31)
[2018-02-24] MEDS: ATORVASTATIN 80 MG TAB PO SCH (21:00)
[2018-02-24] MEDS: RAMIPRIL 5 MG CAP PO SCH (21:00)
[2018-02-24] MEDS: MULTIVIT W/ MINERAL TAB PO SCH (21:00)
[2018-02-24] MEDS: NEPRO SHAKE 237 ML CAN PO SCH (21:00)
[2018-02-24] MEDS: SERTRALINE HCL 50 MG TAB PO SCH (21:00)
[2018-02-24] MEDS ORDERED: CLONIDINE 0.3 MG/PATCH TD SCH (23:00)
--- NOTE | 2018-02-24 23:21 | P.CNS ---
Date of Consult: 02/24/18 Reason for Consult: ESRD Requesting Physician: Adrián Lui Chief Complaint: Altered mentation History of Present Illness: This is an 87-year-old female with history of ESRD, type 2 diabetes, CHF, hypertension admitted for altered mental status. Per daughter, saw her primary care doctor 3 days prior to admission for shingles and she was started on Valtrex. The day prior to admission, daughter noted that she was getting more and more irritated, which progressively worsened. On the morning of admission, daughter states that patient was more confused, unable to really recognize family. Denies any fever, chills, chest pain, shortness of breath, abdominal complaints. Per daughter, patient still makes urine the very intermittent. She is in ESRD, hemodialysis patient of Dr. Guardado. In the ED, patient received Rocephin. At the time of my exam, patient was with decreased alertness, oriented x1. Daughter at bedside, feeding patient was eating when fed without any problems. Per daughter, baseline is that patient was independent, alert oriented x3 prior to admission. She was walking independently with a walker. 10:11 This 87 yrs old Black Female presents to ER via Wheelchair with complaints of rn Hallucinations. 10:11 The patient presents with confusion, decreased mental status, decreased responsiveness. rn Onset: The symptoms/episode began/occurred yesterday. Possible causes: unknown. Current symptoms: In the emergency department the patient's symptoms are unchanged from the initial presentation. It is unknown whether or not the patient has had similar symptoms in the past. Daughter reports AMS, seems confused, is hallucinating, decreased responsiveness that comes and goes, since yesterday, did start acyclovir for zoster recently and daughter concerned may be side effect. No head injury, no vomiting/diarrhea.. Limited HPI/ ROS due to AMS. Case discussed with the family at the bedside. Allergies ciprofloxacin Allergy (Verified 07/22/17 22:57) Rash fexofenadine Allergy (Verified 07/22/17 22:57) Rash gatifloxacin Allergy (Verified 07/22/17 22:57) Hives/Rash Penicillins Allergy (Verified 07/22/17 22:57) Hives/Rash pentazocine [From Talwin] Allergy (Verified 07/22/17 22:57) Unknown Home medications list reviewed: Yes Home Medications: Aspirin [Aspirin EC 81 MG] 81 mg PO DAILY 02/08/15 Atorvastatin Calcium [Lipitor] 80 mg PO BEDTIME 02/08/15 Calcium Carbonate [Tums Regular*] 1,000 mg PO BID 02/08/15 Clopidogrel Bisulfate [Plavix*] 75 mg PO DAILY 02/08/15 Hydralazine HCl [Apresoline] 100 mg PO TID 02/08/15 Isosorbide Mononitrate [Isosorbide Mononitrate ER] 90 mg PO DAILY 02/08/15 Sertraline [Zoloft*] 50 mg PO BEDTIME 02/08/15 Docusate [Colace Cap*] 100 mg PO BID #60 cap 02/19/15 Nifedipine Xl [Procardia XL*] 90 mg PO BID #60 tab 02/20/15 Cholecalciferol (Vitamin D3) [Vitamin D3] 1 cap PO Q48H 07/22/17 Codeine/APAP [Tylenol #3*] 1 tab PO Q6H PRN 07/22/17 Doxazosin Mesylate [Cardura] 8 mg PO BID 07/22/17 Melatonin 5 mg PO BEDTIME PRN PRN 07/22/17 Ramipril [Altace] 10 mg PO BEDTIME 07/22/17 Vit B Comp&C/Folic Acid/Vit D3 [Dialyvite 800 Plus D Wafer] 1 tab PO BEDTIME 07/06 cloNIDine HCl [Catapres*] 0.1 mg PO BID 07/22/17 - Past Medical/Surgical History Diabetic: Yes -: DEPRESSION -: CHRONIC KIDNEY DISEASE ON HD -: CAD -: MALIGNANT HYPERTENSION -: HYPERLIPIDEMIA -: AORTIC STENOSIS -: RENAL ARTERY STENOSIS -: STENT PLACEMENT -: gall bladder removed -: R kidney stent placement -: cataract bilateral repair -: left carotid artery repair. -: left AVF - Social History Alcohol use: No CD- Drugs: No Caffeine use: Yes Place of Residence: Home Review of Systems 10-point ROS is otherwise unremarkable Neurological: Weakness, Confusion Physical Examination Temp Pulse Resp BP Pulse Ox 98.2 F 72 18 210/89 H 92 02/24/18 20:00 02/24/18 20:00 02/24/18 20:00 02/24/18 20:00 02/24/18 20:00 General: Confused, Delirious HEENT: Mucous membr. moist/pink Neck: Supple Respiratory: Clear to auscultation bilaterally, Normal air movement Cardiovascular: No edema, Regular rate/rhythm Gastrointestinal: Soft and benign, Non-distended Musculoskeletal: No clubbing, No contractures Integumentary: No rashes, No cyanosis Hgb 13.5 Blood work reviewed in the chart. Imagings Data: EXAM DESCRIPTION: RAD - Chest Single View - 02/23/2018 10:10 am CLINICAL HISTORY: confused Chest pain. COMPARISON: Chest Single View dated 12/09/2017; Chest Single View dated 11/25/2017 ; Chest Single View dated 07/22/2017; CHEST PA AND LAT 2 VIEW dated 02/11/2015 FINDINGS: Portable technique limits examination quality. Mild interstitial pulmonary edema is present. The heart is mildly to moderately enlarged in size. No displaced fractures. IMPRESSION: Mild CHF versus volume overload pattern. Conclusions/Impression: A/ ESRD on HD. Hyponatremia. Hypokalemia. HTN with CHF/ CKD. Diastolic CHF, chronic. Anemia in CKD. TALIA/ Secondary HyperPTH. Acute Cystitis. AMS. P/ Continue current POC and Medications. Arrange for acute HD. Agree with abx. Follow up cultures. Restart home medications as indicated. No NSAIDs. AM labs. Daily weight. Thank you kindly for the consultation. Case discussed with family.
[2018-02-24] MEDS ORDERED: CLONIDINE 0.3 MG/PATCH TD ONE (23:32)
[2018-02-25 05:44] LABS: Absolute Lymphocytes (CBC) 0.7 K/uL (0.7-4.9); Absolute Monocytes 0.8 K/uL (0.1-1.3); Absolute Neutrophil 8.3 K/uL (1.8-8.0); Basophils % 0.3 % (0-1.3); Eosinophils % 0.7 % (0-4.4); Hematocrit 39.7 % (36.0-45.0); Lymphocytes % 6.6 % (15.3-44.8); MCH 32.3 pg (27.0-35.0); MPV 10.1 fL (7.6-11.3); Monocytes % 8.1 % (3.3-12.3); RBC Red Blood Cell Count 4.23 M/uL (3.86-4.86)
[2018-02-25 06:21] LABS: Albumin 2.7 g/dL (3.4-5.0); Bilirubin Total 0.4 mg/dL (0.2-1.0); Potassium 4.2 mmol/L (3.5-5.1); Protein, Total 6.5 g/dL (6.4-8.2)
[2018-02-25] MEDS ORDERED: DOXAZOSIN 2 MG TAB ONE (08:57)
[2018-02-25] MEDS: DOXAZOSIN 4 MG TAB PO SCH ×2 (09:00→20:58)
[2018-02-25] MEDS: CLOPIDOGREL 75 MG TABLET PO SCH (09:02)
[2018-02-25] MEDS: HYDRALAZINE HCL 25 MG TABLET PO SCH ×3 (09:02→20:57)
[2018-02-25] MEDS: NIFEDIPINE XL 90 MG TABLET PO SCH ×2 (09:02→20:57)
[2018-02-25] MEDS: ISOSORBIDE MONO SR 60 MG TAB PO SCH (09:02)
[2018-02-25] MEDS: ASPIRIN EC 81 MG TAB PO SCH (09:03)
[2018-02-25] MEDS: cloNIDine HCl 0.1 MG TAB PO SCH ×3 (09:03→20:58)
[2018-02-25] MEDS: DOCUSATE NA 100 MG CAP PO SCH ×2 (09:03→20:58)
[2018-02-25] MEDS: NEPRO SHAKE 237 ML CAN PO SCH ×2 (09:05→20:59)
[2018-02-25] MEDS: CEFTRIAXONE/SWI 1gm 1 GM/10 ML SYR IVP SCH (09:05)
--- NOTE | 2018-02-25 12:30 | P.PN ---
Subjective Date of Service: 02/24/18 Chart reviewed; Patient's mental status is conncerning, but she was given ativan for HD and since has been sleeping. Unable to give PO BP meds; will place catapress TTS-3 & hydralazine if not waking up soon Review of Systems 10-point ROS is otherwise unremarkable Physical Examination - Vital Signs Temperature: 98.0 F Blood Pressure: 185/81 Pulse: 92 Respirations: 20 Pulse Ox (%): 93 - Physical Exam General: Other (asleep; deeply) Respiratory: Clear to auscultation bilaterally, Normal air movement Cardiovascular: Regular rate/rhythm, Normal S1 S2, No murmurs Gastrointestinal: Normal bowel sounds, Soft and benign, Non-distended, No tenderness Musculoskeletal: No clubbing, No swelling, No tenderness Neurological: Normal speech, Normal tone, Sensation intact, Cranial nerves 3-12 intact, Normal affect Lymphatics: No axilla or inguinal lymphadenopathy - Studies Microbiology Data (last 24 hrs): 02/23/18 09:30 Catheterized Urine [place] Count - Final >100,000 CFU/ML. 02/23/18 09:30 Catheterized Urine - Final Medications List Reviewed: Yes Assessment & Plan - Problems (Diagnosis) (1) ESRD (end stage renal disease) Current Visit: Yes Status: Acute (2) Dyslipidemia Onset Date: 02/11/15 Current Visit: No Status: Acute (3) HTN (hypertension), malignant Onset Date: 02/11/15 Current Visit: No Status: Acute (4) Renal artery stenosis Onset Date: 02/11/15 Current Visit: No Status: Acute - Plan Monitor blood pressure closely. If blood pressure starts going up and patient is difficult to wake up he then we will go ahead and put a Catapres TTS -3 patch on her. Hydralazine IV pushes also available. Currently systolic blood pressure has gone down from 190 to 160. I do not want it to go down too quickly so will monitor closely. - Advance Directives Does patient have a Living Will: No Does patient have a Durable POA for Healthcare: No - Code Status/Comfort Care Code Status Assessed: Yes Code Status: Full Code Physician Review: Patient Assessed, Agree with Above Assessment and Plan Critical Care: No Time Spent Managing PTS Care (In Minutes): 30
--- NOTE | 2018-02-25 15:50 | P.PN ---
Subjective Date of Service: 02/25/18 Chief Complaint: Altered mentation Patient seen and examined at bedside. Daughter at bedside. Chart reviewed and case discussed with nursing staff. Per nursing staff, patient more alert and awake this morning. When I went to come patient still very sleepy, though would respond to commands. Seen again in the afternoon, patient does state, though cup with some hello. More talkative. Per daughter, she was alert and awake this afternoon, she did eat a little bit. Blood pressure remains elevated. She is status post dialysis yesterday Review of Systems As noted Physical Examination - Vital Signs Temperature: 98.0 F Blood Pressure: 185/81 Pulse: 92 Respirations: 20 Pulse Ox (%): 93 - Physical Exam General: Alert, In no apparent distress, Other (Sleepy, though did wake after respond a little bit) HEENT: Atraumatic, PERRLA, EOMI Neck: Supple, JVD not distended Respiratory: Clear to auscultation bilaterally, Normal air movement Cardiovascular: Regular rate/rhythm, Normal S1 S2 Gastrointestinal: Normal bowel sounds, No tenderness Musculoskeletal: No tenderness Integumentary: No rashes Neurological: Normal speech, Normal tone, Normal affect - Studies Medications List Reviewed: Yes Assessment And Plan - Plan This is a 87 yr old female with: UTI Urine culture with yeast No fevers, no WBC elevation. Blood cultures pending This may be a colonization, unsure. Lewis risk factors patient is a diabetic. No recent instrumentation or Lewis catheter placement. Patient intermittently makes urine (which is normal for her) and no changes in urine noted at this time. Will continue to monitor, follow blood cultures. If positive, will treat with anti fungal medications. Will continue antibiotics in the meanwhile. AMS Metabolic encephalopathy Improving Likely 2/2 UTI vs recent valtrex continue IV antibiotics, hold Valtrex at this time. CT head negative, if symptoms persist, may consider MRI ESRD on HD M,W,F Dr. Guardado's group - nephrology consulted. Recommendations appreciated. Dialysis yesterday, next due Tuesday Shingles Started valtrex on tuesday, given from PCP office started getting more irritated 1 day after starting medication then started getting more confused today, which made family bring patient to the ER. will hold valtrex, pain control if needed Essential hypertension Blood pressure remains elevated after restarting home medications. Will monitor after dialysis. May need to make adjustments to medication. Nephrology consulted Diabetes mellitus, type 2 Accu-Cheks, mild dose sliding scale. Will continue to monitor and adjust as needed. Per daughter, diabetes is diet controlled at home. Patient not any medications at this time DVT prophylaxis: Aspirin and Plavix, heparin with dialysis GI prophylaxis: Not needed Diet: Renal Disposition: pending symptomatic improvement Physician Review: Patient Assessed, Agree with Above Assessment and Plan Time Spent Managing PTS Care (In Minutes): 45
[2018-02-25] MEDS: RAMIPRIL 5 MG CAP PO SCH (20:57)
[2018-02-25] MEDS: ATORVASTATIN 80 MG TAB PO SCH (20:57)
[2018-02-25] MEDS: SERTRALINE HCL 50 MG TAB PO SCH (20:58)
[2018-02-25] MEDS: MULTIVIT W/ MINERAL TAB PO SCH (20:58)
--- NOTE | 2018-02-25 21:01 | P.PN ---
Date of Service: 02/25/18 Vital Signs Temp Pulse Resp BP Pulse Ox 97.9 F 81 17 163/72 H 93 02/25/18 16:00 02/25/18 16:00 02/25/18 16:00 02/25/18 16:00 02/25/18 16:00 Medications Acetaminophen (Tylenol -Extra Strength) 500 mg PO Q4HP PRN PRN Reason: [id number] Stop: 03/25/18 12:19 Aspirin (Aspirin Ec) 81 mg PO DAILY [facility] Stop: 03/26/18 09:01 Last Admin: 02/25/18 09:03 Dose: 81 mg Atorvastatin Calcium (Lipitor) 80 mg PO BEDTIME [facility] Stop: 03/25/18 21:01 Last Admin: 02/24/18 21:00 Dose: Not Given Clonidine HCl (Catapres) 0.3 mg PO TID [facility] Stop: 03/26/18 07:01 Last Admin: 02/25/18 14:40 Dose: 0.3 mg Clopidogrel Bisulfate (Plavix) 75 mg PO DAILY [facility] Stop: 03/26/18 09:01 Last Admin: 02/25/18 09:02 Dose: 75 mg Docusate Sodium (Colace Cap) 100 mg PO BID [facility] Stop: 03/25/18 21:01 Last Admin: 02/25/18 09:03 Dose: 100 mg Doxazosin Mesylate (Cardura) 8 mg PO BID [facility] Stop: 03/25/18 21:01 Last Admin: 02/25/18 09:00 Dose: 8 mg Enteral Nutritional Formula (Nepro Shake) 237 ml PO BID [facility] Stop: 03/26/18 21:01 Last Admin: 02/25/18 09:05 Dose: 237 ml Epoetin Tito (Procrit) 10,000 unit IV EVERY HD [facility] Stop: 03/25/18 22:46 Last Admin: 02/24/18 13:31 Dose: 10,000 unit Heparin Sodium (Porcine) (Heparin 1,000 Units/Ml) 6,000 unit IJ EVERY HD PRN PRN Reason: FLUSH AFTER EACH USE Stop: 03/25/18 22:36 Hydralazine HCl (Apresoline) 100 mg PO TID [facility] Stop: 03/25/18 21:01 Last Admin: 02/25/18 14:40 Dose: 100 mg Ceftriaxone Sodium/Sodium Chloride (Rocephin 1 Gm/10 Ml Swi Ivp) 1 gm in 10 mls @ 600 mls/hr IVP DAILY [facility]; Protocol Stop: 03/26/18 09:01 Last Admin: 02/25/18 09:05 Dose: 10 mls Albumin Human (Albumin 25%) 50 mls @ 100 mls/hr IV EVERY HD [facility] Stop: 03/25/18 23:01 Isosorbide Mononitrate (Imdur) 90 mg PO DAILY [facility] Stop: 03/26/18 09:01 Last Admin: 02/25/18 09:02 Dose: 90 mg Mannitol (Mannitol 12.5 Gm/50 Ml Vial) 12.5 gm IV EVERY HD PRN PRN Reason: BP support at hemodialysis Stop: 03/25/18 22:36 Melatonin (Melatonin) 5 mg PO BEDTIME PRN PRN Reason: SLEEP Stop: 03/25/18 17:49 Last Admin: 02/23/18 21:44 Dose: 5 mg Minoxidil (Loniten) 1.25 mg PO BID [facility] Stop: 03/27/18 21:01 Multivitamins/Minerals (Centrum Silver) 1 tab PO BEDTIME [facility] Stop: 03/25/18 21:01 Last Admin: 02/24/18 21:00 Dose: Not Given Nifedipine (Procardia Xl) 90 mg PO BID [facility] Stop: 03/25/18 21:01 Last Admin: 02/25/18 09:02 Dose: 90 mg Ondansetron HCl (Zofran) 4 mg IV Q4H PRN PRN Reason: NAUSEA / VOMITING Stop: 03/25/18 17:26 Last Admin: 02/24/18 08:19 Dose: 4 mg Ramipril (Altace) 10 mg PO BEDTIME [facility] Stop: 03/25/18 21:01 Last Admin: 02/24/18 21:00 Dose: Not Given Sertraline HCl (Zoloft) 50 mg PO BEDTIME [facility] Stop: 03/25/18 21:01 Last Admin: 02/24/18 21:00 Dose: Not Given Sodium Chloride (Normal Saline Flush) 10 ml IV BID [facility] Stop: 03/25/18 21:01 Last Admin: 02/25/18 09:05 Dose: 10 ml Microbiology Results 02/23/18 09:30 Catheterized Urine [place] Count - Final >100,000 CFU/ML. 12/06/18 09:30 Catheterized Urine - Final Assessment/ Plan: Nephrology. Limited IH/ ROS due to AMS/ Somnolence. No acute events overnight. Case discussed with the family at the bedside. Vitals, medications, blood work and imaging reviewed in the chart. General: Somnolence. HEENT: Mucous membr. moist/pink Neck: Supple Respiratory: Clear to auscultation bilaterally, Normal air movement Cardiovascular: No edema, Regular rate/rhythm Gastrointestinal: Soft and benign, Non-distended Musculoskeletal: No clubbing, No contractures Integumentary: No rashes, No cyanosis Hgb 13.5 Blood work reviewed in the chart. Imagings Data: EXAM DESCRIPTION: RAD - Chest Single View - 02/23/2018 10:10 am CLINICAL HISTORY: confused Chest pain. COMPARISON: Chest Single View dated 12/09/2017; Chest Single View dated 11/25/2017 ; Chest Single View dated 07/22/2017; CHEST PA AND LAT 2 VIEW dated 02/11/2015 FINDINGS: Portable technique limits examination quality. Mild interstitial pulmonary edema is present. The heart is mildly to moderately enlarged in size. No displaced fractures. IMPRESSION: Mild CHF versus volume overload pattern. Conclusions/Impression: A/ ESRD on HD. Hyponatremia. Hypokalemia. HTN with CHF/ CKD. Diastolic CHF, chronic. Anemia in CKD. TALIA/ Secondary HyperPTH. Acute Cystitis. AMS. P/ Continue current POC and Medications. Arrange for acute HD on Tuesday. Start low dose minoxidil. Agree with abx. Follow up cultures. No NSAIDs. AM labs. Daily weight.
[2018-02-25] MEDS: MINOXIDIL 2.5 MG TAB PO SCH (23:34)
[2018-02-26 05:13] LABS: Absolute Lymphocytes (CBC) 0.9 K/uL (0.7-4.9); Absolute Monocytes 0.7 K/uL (0.1-1.3); Absolute Neutrophil 5.7 K/uL (1.8-8.0); Basophils % 0.4 % (0-1.3); Eosinophils % 1.3 % (0-4.4); Hematocrit 36.3 % (36.0-45.0); Lymphocytes % 12.3 % (15.3-44.8); MCH 31.6 pg (27.0-35.0); MCV 93.6 fL (80-100); MPV 8.5 fL (7.6-11.3); Monocytes % 9.1 % (3.3-12.3); RBC Red Blood Cell Count 3.87 M/uL (3.86-4.86)
[2018-02-26 05:58] LABS: Albumin 2.4 g/dL (3.4-5.0); Bilirubin Total 0.4 mg/dL (0.2-1.0); Potassium 4.1 mmol/L (3.5-5.1); Protein, Total 6.1 g/dL (6.4-8.2)
[2018-02-26] MEDS ORDERED: DOXAZOSIN 2 MG TAB ONE (07:47)
[2018-02-26] MEDS: CEFTRIAXONE/SWI 1gm 1 GM/10 ML SYR IVP SCH (08:11)
[2018-02-26] MEDS: NIFEDIPINE XL 90 MG TABLET PO SCH ×2 (08:11→21:24)
[2018-02-26] MEDS: CLOPIDOGREL 75 MG TABLET PO SCH (08:12)
[2018-02-26] MEDS: cloNIDine HCl 0.1 MG TAB PO SCH ×3 (08:12→20:33)
[2018-02-26] MEDS: DOCUSATE NA 100 MG CAP PO SCH ×2 (08:12→20:35)
[2018-02-26] MEDS: MINOXIDIL 2.5 MG TAB PO SCH ×2 (08:12→20:33)
[2018-02-26] MEDS: ASPIRIN EC 81 MG TAB PO SCH (08:13)
[2018-02-26] MEDS: ISOSORBIDE MONO SR 60 MG TAB PO SCH (08:13)
[2018-02-26] MEDS: HYDRALAZINE HCL 25 MG TABLET PO SCH ×3 (08:13→20:33)
[2018-02-26] MEDS: NEPRO SHAKE 237 ML CAN PO SCH ×2 (08:14→20:34)
[2018-02-26] MEDS: DOXAZOSIN 4 MG TAB PO SCH (08:14)
--- NOTE | 2018-02-26 11:38 | P.PN ---
Subjective Date of Service: 02/26/18 Chief Complaint: Altered mentation Subjective: No new changes, No C/O voiced, Improving Patient seen and examined at bedside. Daughter at bedside. Chart reviewed and case discussed with nursing staff. Per nursing staff, patient more alert and awake this morning. When I went to come patient still very sleepy, though would respond to commands. Seen again in the afternoon, patient does state, though cup with some hello. More talkative. Per daughter, she was alert and awake this afternoon, she did eat a little bit. Blood pressure remains elevated. She is status post dialysis yesterday Review of Systems As noted Physical Examination - Vital Signs Temperature: 97.5 F Blood Pressure: 161/68 Pulse: 83 Respirations: 18 Pulse Ox (%): 94 - Physical Exam General: Alert, In no apparent distress, Other HEENT: Atraumatic, PERRLA, EOMI Neck: Supple, JVD not distended Respiratory: Clear to auscultation bilaterally, Normal air movement Cardiovascular: Regular rate/rhythm, Normal S1 S2 Gastrointestinal: Normal bowel sounds, No tenderness Musculoskeletal: No tenderness Integumentary: No rashes Neurological: Normal speech, Normal tone, Normal affect Lymphatics: No axilla or inguinal lymphadenopathy - Studies Medications List Reviewed: Yes Assessment And Plan - Plan This is a 87 yr old female with: UTI Urine culture with yeast No fevers, no WBC elevation. Blood cultures pending This may be a colonization, unsure. Lewis risk factors patient is a diabetic. No recent instrumentation or Lewis catheter placement. Patient intermittently makes urine (which is normal for her) and no changes in urine noted at this time. Will continue to monitor, follow blood cultures. If positive, will treat with anti fungal medications. Will continue antibiotics in the meanwhile. AMS Metabolic encephalopathy Improving Likely 2/2 UTI vs recent valtrex continue IV antibiotics, hold Valtrex at this time. CT head negative, if symptoms persist, may consider MRI ESRD on HD M,W,F Dr. Guardado's group - nephrology consulted. Recommendations appreciated. Dialysis yesterday, next due Tuesday Shingles Started valtrex on tuesday, given from PCP office started getting more irritated 1 day after starting medication then started getting more confused today, which made family bring patient to the ER. will hold valtrex, pain control if needed Essential hypertension Blood pressure remains elevated after restarting home medications. Will monitor after dialysis. May need to make adjustments to medication. Nephrology consulted Diabetes mellitus, type 2 Accu-Cheks, mild dose sliding scale. Will continue to monitor and adjust as needed. Per daughter, diabetes is diet controlled at home. Patient not any medications at this time DVT prophylaxis: Aspirin and Plavix, heparin with dialysis GI prophylaxis: Not needed Diet: Renal Disposition: pending symptomatic improvement Physician Review: Patient Assessed, Agree with Above Assessment and Plan
[2018-02-26] MEDS: RAMIPRIL 5 MG CAP PO SCH (20:32)
[2018-02-26] MEDS: DOXAZOSIN 2 MG TAB PO SCH (20:32)
[2018-02-26] MEDS: MULTIVIT W/ MINERAL TAB PO SCH (20:33)
[2018-02-26] MEDS: ATORVASTATIN 80 MG TAB PO SCH (20:33)
[2018-02-26] MEDS: SERTRALINE HCL 50 MG TAB PO SCH (21:24)
[2018-02-27 06:03] LABS: Absolute Lymphocytes (CBC) 0.6 K/uL (0.7-4.9); Absolute Monocytes 0.4 K/uL (0.1-1.3); Absolute Neutrophil 4.5 K/uL (1.8-8.0); Basophils % 0.7 % (0-1.3); Eosinophils % 1.8 % (0-4.4); Hematocrit 35.7 % (36.0-45.0); MCH 31.9 pg (27.0-35.0); MCV 93.3 fL (80-100); MPV 9.1 fL (7.6-11.3); Monocytes % 6.5 % (3.3-12.3); RBC Red Blood Cell Count 3.83 M/uL (3.86-4.86)
[2018-02-27 06:45] LABS: Albumin 2.3 g/dL (3.4-5.0); Bilirubin Total 0.4 mg/dL (0.2-1.0); Potassium 4.1 mmol/L (3.5-5.1); Protein, Total 5.9 g/dL (6.4-8.2)
[2018-02-27 07:24] VITALS: BMI 23.5
[2018-02-27] MEDS: DOXAZOSIN 2 MG TAB PO SCH (08:32)
[2018-02-27] MEDS: ASPIRIN EC 81 MG TAB PO SCH (08:34)
[2018-02-27] MEDS: MINOXIDIL 2.5 MG TAB PO SCH (08:34)
[2018-02-27] MEDS: DOCUSATE NA 100 MG CAP PO SCH (08:34)
[2018-02-27] MEDS: cloNIDine HCl 0.1 MG TAB PO SCH ×2 (08:35→15:30)
[2018-02-27] MEDS: CLOPIDOGREL 75 MG TABLET PO SCH (08:36)
[2018-02-27] MEDS: NIFEDIPINE XL 90 MG TABLET PO SCH (08:36)
[2018-02-27] MEDS: HYDRALAZINE HCL 25 MG TABLET PO SCH ×2 (08:37→15:31)
[2018-02-27] MEDS: ISOSORBIDE MONO SR 60 MG TAB PO SCH (08:37)
[2018-02-27] MEDS: NEPRO SHAKE 237 ML CAN PO SCH (08:40)
[2018-02-27] MEDS: CEFTRIAXONE/SWI 1gm 1 GM/10 ML SYR IVP SCH (08:40)
[2018-02-27] MEDS: EPOETIN ALFA 10,000 UNIT/ML VIAL IV SCH (11:55)
--- NOTE | 2018-02-27 15:46 | P.DS ---
Admission Date: 02/23/18 Discharge Date: 02/27/18 Disposition: DC HOME/HOME HEALTH CARE Discharge Condition: GOOD Reason for Admission: Altered mentation Consultations: Nephrology, Dr. Guardado Brief History of Present Illness: This is an 87-year-old female with history of ESRD, type 2 diabetes, CHF, hypertension admitted for altered mental status. Per daughter, saw her primary care doctor 3 days prior to admission for shingles and she was started on Valtrex. The day prior to admission, daughter noted that she was getting more and more irritated, which progressively worsened. On the morning of admission, daughter states that patient was more confused, unable to really recognize family. Denies any fever, chills, chest pain, shortness of breath, abdominal complaints. Per daughter, patient still makes urine the very intermittent. She is in ESRD, hemodialysis patient of Dr. Guardado. In the ED, patient received Rocephin. At the time of my exam, patient was with decreased alertness, oriented x1. Daughter at bedside, feeding patient was eating when fed without any problems. Per daughter, baseline is that patient was independent, alert oriented x3 prior to admission. She was walking independently with a walker. Hospital Course: UTI Urine culture with yeast No fevers, no WBC elevation. Blood cultures without any growth. This may be a colonization, unsure. The only risk factors patient has is that she is a diabetic. No recent instrumentation or Lewis catheter placement. Patient intermittently makes urine (which is normal for her) and no changes in urine noted at this time. She was given IV antibiotics in the hospital. No evidence of her need for antibiotics upon discharge. Will go ahead and discontinue IV antibiotics at this time. AMS Metabolic encephalopathy Mentation back to baseline. This was likely secondary to recent Valtrex use. Recommend holding the Valtrex at this time. Imaging negative for any acute abnormalities at this time. Generalized weakness: Physical therapy consulted, working with physical therapy. We would recommend patient to go to a facility, the patient and daughter refused stating that she would not want her to go to a facility and patient would not want to either. They already have home health set up with physical therapy. Patient will resume working with physical therapy with home health. ESRD on HD M,W,F Dr. Guardado's group - nephrology consulted. Recommendations appreciated. Patient received dialysis today. She is to resume her regular dialysis schedule of Tuesday, Tuesday, Tuesday. Shingles Started valtrex on tuesday, given from PCP office started getting more irritated 1 day after starting medication then started getting more confused on the day of admission. Recommend holding the Valtrex and following up with the primary care physician for further management if needed. Patient goals rash seems to be resolving at this time. May also discuss shingles vaccination with primary care physician. Valtrex added to allergy list Essential hypertension Blood pressure remains elevated after restarting home medications. Per nephrology, her blood pressure does state elevated even though she is on 5+ medications. They will continue working on management of the medications with dialysis. She will follow up outpatient with Nephrology in 1-2 weeks for further management/evaluation. Vital Signs/Physical Exam: Temp Pulse Resp BP Pulse Ox 98.1 F 82 16 132/48 L 96 02/27/18 12:00 02/27/18 15:30 02/27/18 12:00 02/27/18 15:30 02/27/18 12:00 General: Alert, In no apparent distress, Oriented x3, Cachectic (Ill-appearing) , Other HEENT: Atraumatic, PERRLA, EOMI Neck: Supple, JVD not distended Respiratory: Clear to auscultation bilaterally, Normal air movement Cardiovascular: No edema, Regular rate/rhythm, Normal S1 S2 Gastrointestinal: Normal bowel sounds, No tenderness Musculoskeletal: No tenderness Integumentary: Rash(es) (Dry/peeling rash on left lower back consistent with resolving shingles) Neurological: Normal speech, Normal tone, Normal affect Laboratory Data at Discharge: WBC 5.6 K/uL (4.3-10.9) D 02/27/18 05:41 Hgb 12.2 g/dL (12.0-15.0) 02/27/18 05:41 Hct 35.7 % (36.0-45.0) L 02/27/18 05:41 Plt Count 163 K/uL (152-406) 02/27/18 05:41 Sodium 131 mmol/L (136-145) L 02/27/18 05:41 Potassium 4.1 mmol/L (3.5-5.1) 02/27/18 05:41 BUN 53 mg/dL (7-18) H 02/27/18 05:41 Creatinine 6.60 mg/dL (0.55-1.3) H* 02/27/18 05:41 Glucose 110 mg/dL (74-106) H 02/27/18 05:41 Total Bilirubin 0.4 mg/dL (0.2-1.0) 02/27/18 05:41 AST 19 U/L (15-37) 02/27/18 05:41 ALT 11 U/L (12-78) L 02/27/18 05:41 Alkaline Phosphatase 87 U/L (45-117) 02/27/18 05:41 Home Medications: Aspirin [Aspirin EC 81 MG] 81 mg PO DAILY 02/08/15 Atorvastatin Calcium [Lipitor] 80 mg PO BEDTIME 02/08/15 Calcium Carbonate [Tums Regular*] 1,000 mg PO BID 02/08/15 Clopidogrel Bisulfate [Plavix*] 75 mg PO DAILY 02/08/15 Hydralazine HCl [Apresoline] 100 mg PO TID 02/08/15 Isosorbide Mononitrate [Isosorbide Mononitrate ER] 90 mg PO DAILY 02/08/15 Sertraline [Zoloft*] 50 mg PO BEDTIME 02/08/15 Docusate [Colace Cap*] 100 mg PO BID #60 cap 02/19/15 Nifedipine Xl [Procardia XL*] 90 mg PO BID #60 tab 02/20/15 Cholecalciferol (Vitamin D3) [Vitamin D3] 1 cap PO Q48H 07/22/17 Codeine/APAP [Tylenol #3*] 1 tab PO Q6H PRN 07/22/17 Doxazosin Mesylate [Cardura] 8 mg PO BID 07/22/17 Melatonin 5 mg PO BEDTIME PRN PRN 07/22/17 Ramipril [Altace] 10 mg PO BEDTIME 07/22/17 Vit B Comp&C/Folic Acid/Vit D3 [Dialyvite 800 Plus D Wafer] 1 tab PO BEDTIME 07/06 cloNIDine HCl [Catapres*] 0.1 mg PO BID 07/22/17 Patient Discharge Instructions: 1) please follow up with the primary care physician in 1 week. 2) urinary tract infection: Urine urine culture was positive for yeast, but he remained afebrile without any white blood cell elevation. Blood cultures were also negative. Unsure if this was a colonization though no changes in your noted therefore you did not receive any anti fungal medications. You did get IV antibiotics for this treatment but I do not think you require antibiotics on discharge. 3) in mentation has improved , it seems they were back to baseline. This occurred likely secondary to the UTI versus the reason Valtrex you were recently taking. I would recommend to continue holding the Valtrex at this time. 4) generalized weakness: We would recommend continuing physical therapy with the help of home health. Since she already have this set up, we will send records over to the [facility]. 5) ESRD on HD M,W,F: He will last dialysis session was today, February 27, 2018. Please continue with your regular dialysis schedule Tuesday, Tuesday, Tuesday. 6) Shingles: We recommend continue holding the Valtrex. Follow up with primary care physician for further management if pain uncontrolled or if rash not improving. May discuss shingles vaccine with primary care physician as well. 7) Essential hypertension: The blood pressure remained elevated you after restarting her home medications. The did improve slightly, would recommend that you will follow up with the machine packager in 1-2 weeks for further medication management Diet: Renal Activity: Fall precautions Physician Review: Patient Assessed, Agree with Above Assessment and Plan Time spent managing pt's care (in minutes): 55
[2018-02-27 16:23] VITALS: O2SAT 93
[2018-02-27 17:32] VITALS: BP 124/61; TEMP 98.3
--- NOTE | 2018-02-27 20:07 | P.PN ---
Date of Service: 02/27/18 Vital Signs Temp Pulse Resp BP Pulse Ox 98.3 F 85 16 124/61 95 02/27/18 16:00 02/27/18 16:00 02/27/18 16:00 02/27/18 16:00 02/27/18 16:00 Microbiology Results 02/23/18 09:30 Catheterized Urine [place] Count - Final >100,000 CFU/ML. 02/23/18 09:30 Catheterized Urine - Final Assessment/ Plan: Nephrology. Feeling better. CPS stable without CP or SOB. No pain. No acute events overnight. Vitals, medications, blood work and imaging reviewed in the chart. General: Somnolence. HEENT: Mucous membr. moist/pink Neck: Supple Respiratory: Clear to auscultation bilaterally, Normal air movement Cardiovascular: No edema, Regular rate/rhythm Gastrointestinal: Soft and benign, Non-distended Musculoskeletal: No clubbing, No contractures Integumentary: No rashes, No cyanosis Hgb 13.5 Blood work reviewed in the chart. Imagings Data: EXAM DESCRIPTION: RAD - Chest Single View - 02/23/2018 10:10 am CLINICAL HISTORY: confused Chest pain. COMPARISON: Chest Single View dated 12/09/2017; Chest Single View dated 11/25/2017 ; Chest Single View dated 07/22/2017; CHEST PA AND LAT 2 VIEW dated 02/11/2015 FINDINGS: Portable technique limits examination quality. Mild interstitial pulmonary edema is present. The heart is mildly to moderately enlarged in size. No displaced fractures. IMPRESSION: Mild CHF versus volume overload pattern. Conclusions/Impression: A/ ESRD on HD. Hyponatremia. Hypokalemia. HTN with CHF/ CKD. Diastolic CHF, chronic. Anemia in CKD. TALIA/ Secondary HyperPTH. Acute Cystitis. AMS. P/ Continue current POC and Medications. Arrange for acute HD today. Titrate minoxidil as needed. Agree with abx. Follow up cultures. No NSAIDs. AM labs. Daily weight.
[2018-03-03] MEDS ORDERED: CLONIDINE 0.3 MG/PATCH TD SCH (09:00)
== END 2018-02-27 16:40 | disposition home health service (06) | DRG 689 ==
LOC: ER 08:33 → ERHOLD 12:20 → 2ND 13:41
PROVIDERS: ADMIT Family Medicine; ATTEND Family Medicine
PROC: 5A1D70Z Performance of Urinary Filtration, Intermittent, Less than 6 Hours Per Day (ICD-10-PCS; principal; 2018-02-24)
PROC: 5A1D70Z Performance of Urinary Filtration, Intermittent, Less than 6 Hours Per Day (ICD-10-PCS; 2018-02-27)
DX: N30.00 Acute cystitis without hematuria (principal); G92 Toxic encephalopathy; N18.6 End stage renal disease; E87.1 Hypo-osmolality and hyponatremia; I13.0 Hypertensive heart and chronic kidney disease with heart failure and stage 1 through stage 4 chronic kidney disease, or unspecified chronic kidney disease; I50.32 Chronic diastolic (congestive) heart failure; N25.81 Secondary hyperparathyroidism of renal origin; R41.82 Altered mental status, unspecified; Z88.8 Allergy status to other drugs, medicaments and biological substances; E78.5 Hyperlipidemia, unspecified; B02.9 Zoster without complications; E11.22 Type 2 diabetes mellitus with diabetic chronic kidney disease; Z99.2 Dependence on renal dialysis; Z79.4 Long term (current) use of insulin; I25.10 Atherosclerotic heart disease of native coronary artery without angina pectoris; I35.0 Nonrheumatic aortic (valve) stenosis; E87.6 Hypokalemia; N18.3 Chronic kidney disease, stage 3 (moderate); D63.1 Anemia in chronic kidney disease; N25.0 Renal osteodystrophy; T37.5X5A Adverse effect of antiviral drugs, initial encounter; Y92.019 Unspecified place in single-family (private) house as the place of occurrence of the external cause; Z88.0 Allergy status to penicillin
CPT/HCPCS: 36415; 51702; 70450; 71045; 80048; 80053; 81003; 81015; 82962; 85025; 87040; 87086; 87088; 90935; 93005; 94760; 96365; 97162; 99285; J0360; J0696; J1644; J2405; Q4081

== ENCOUNTER 2018-04-17 09:57 | Observation (INO) | payer OTHER ==
--- OUTSIDE RECORDS SUMMARY | 2018-04-17 09:59 | XMS REPORT | Clinical Summary ---
:1930 Author Organization [facility] Address [address] [place] [id number] Care Team Providers Name Role Phone Leonid [...] Health Maintenance Due Date Last Done Comments SHINGLES VACCINES (1 of 2) 1980 PNEUMOCOCCAL POLYSACCHARIDE VACCINE AGE 65 AND OVER 09/27/1995 PNEUMOCOCCAL-13 09/27/1995 INFLUENZA VACCINE 10/19/2017 Results Not on fileafter 04/16/2017 Insurance Payer Benefit Plan / Group Subscriber ID Type Phone Address MEDICARE MEDICARE PART A AND B xxxxxxxxxx Medicare [place], [place] [employer] PPO OPEN CHOICE xxxxxxxxxx PPO Advance Directives Patient has advance care planning documents on file. For more information, please contact:Panfilo Barragan[address] [place] [address]
--- OUTSIDE RECORDS SUMMARY | 2018-04-17 09:59 | XMS REPORT | Clinical Summary ---
:1930 Author Organization [facility] Address [address] [place] [address] Care Team Providers Name Role Phone Unavailable [...] Not on file Results Not on fileafter 04/16/2017
--- OUTSIDE RECORDS SUMMARY | 2018-04-17 10:01 | XMS REPORT | Continuity of Care Document ---
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 Iron deficiency Active 12/28/19 Problem 08/05/2017 Data anemia<sup>9</sup> 13 migrated [place] from [employer] on 08/17/14. Loss of Active 12/28/19 Problem 08/05/2017 Data MH appetite<sup>11</ochoa 13 migrated [place] p> from [employer] on 08/17/14. Gastroesophageal Active 08/29/19 Problem 08/05/2017 Data MH reflux 13 migrated [place] disease<sup>5</sup> from [employer] on 08/17/14. Lung Active 05/03/19 Problem 08/05/2017 Data MH mass<sup>12</sup> 13 migrated [place] from [employer] on 08/17/14. Thyroid Active 05/03/19 Problem 08/05/2017 Data MH nodule<sup>15</sup> 13 migrated [place] from [employer] on 08/17/14. Osteoarthritis of Active 01/05/20 Problem 08/05/2017 Data MH knee<sup>14</sup> 12 migrated [place] from [employer] on 08/17/14. Long-term drug Active 11/01/19 Problem 08/05/2017 Data MH therapy<sup>10</sup 12 migrated [place] > from [employer] on 08/17/14. Malaise and Active 11/01/19 Problem 08/05/2017 Data fatigue<sup>13</sup 12 migrated [place] > from [employer] on 08/17/14. Abnormal cytology Active 10/18/19 Problem 08/05/2017 Data findings<sup>1</sup 12 migrated [place] > from [employer] on 08/17/14. 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 Constipation<sup>3< Active Problem 08/05/2017 Data MH /sup> migrated [place] from [employer] on 08/17/14. Diabetes Active Problem 08/05/2017 Data mellitus<sup>4</sup migrated [place] > from [employer] on 08/17/14. Hypercholesterolemi Active Problem 08/05/2017 Data a<sup>7</sup> migrated [place] from [employer] on 08/17/14. Impaired glucose Active Problem 08/05/2017 Data tolerance<sup>8</ochoa migrated [place] p> from [employer] on 08/17/14. ACUTE DIASTOLIC Active [facility] [place] (CONGESTIVE) HEART [place] FAILU HEART FAILURE, Active [facility] UNSPECIFIED [place] Medications Medication Details Route Status Patient Ordering Order Source Instructions Provider Date remove patch 1 patch, No Longer MH Route: TOP, Active 018 [place] Drug form: ERFILM, Q7D, Start date: 05/06/17 4:59:00 [employer], Duration: 30 day, Stop date: 06/03/17 9:00:00 CDT Clonidine 0.2 mg=2 tab, Active MH Hydrochloride PO, BID, # 30 018 [place] 0.1 MG Oral tab, 0 Tablet Refill(s), [id number] losartan 50 mg 100 mg=2 tab, Active MH oral tablet PO, Q12H, # 018 [place] 30 tab, 0 Refill(s), [id number] Hydralazine 200 mg=2 tab, Active MH Hydrochloride PO, TID, 0 018 [place] 100 MG Oral Refill(s) Tablet Clonidine 0.2 mg, 2 Inactive MH Hydrochloride tab, Route: 018 [place] 0.1 MG Oral PO, Drug Tablet form: TAB, BID, Dosing Weight 68.5, kg, Start date: 04/29/17 17:00:00 [employer], Duration: 30 day, Stop date: 05/29/17 9:00:00 CDTNotes: (Same As: Catapres) normal saline 1,000 mL, Inactive MH 0.9% IV 1,000 Rate: 75 018 [place] mL ml/hr, Infuse over: 13.3 hr, Route: IV, Dosing Weight 68.5 kg, Total Volume: 1,000, Start date: 04/29/17 10:55:00 [employer], Duration: 30 day, Stop date: 05/29/17 10:54:00 CDT, 1.79, m2 Hydralazine 50 mg, 1 tab, Inactive MH Hydrochloride Route: PO, 018 [place] 50 MG Oral Drug form: Tablet TAB, TID, Dosing Weight 68.5, kg, Start date: 04/29/17 9:00:00 [employer], Duration: 30 day, Stop date: 05/28/17 17:00:00 [employer] 168 HR 1 patch, Inactive MH Clonidine Route: TOP, 018 [place] 0.09146 MG/HR Drug Form: Transdermal ERFILM, Patch Dosing Weight 68.5, kg, Q7D, Start date: 04/29/17 5:00:00 [employer], Duration: 30 day, Stop date: 05/27/17 9:00:00 CSTNotes: Patch delivers 0.1 mg/24 hours; Patch is applied weekly. "Remove old patch before application of new patch" (Same As: Catapres-TTS- 1) Kayexalate 30 gm, 120 Inactive MH mL, Route: 018 [place] PO, Drug form: SUSP, ONCE, Dosing Weight 68.5, kg, Start date: 04/28/17 12:50:00 [employer], Stop date: 04/28/17 12:50:00 CSTNotes: (sodium polystyrene sulfonate 15 gm/60 ml TRINITY) Shake well before use. (Same as: Kayexalate, SPS) sodium chloride 2,000 mL, 0 No Longer MH 0.9% (Priming ml/hr, Infuse Active 018 [place] and Over: 0 hr, Maintenance) Route: IV, 2,000, Drug form: INJ, PRN, Dosing Weight 68.5 kg, Start date: 04/28/17 11:40:00 [employer], Duration: 24 hr, Stop date: 04/29/17 11:39:00 [employer], For Use by Dialysis nurse ONLY, PRN Dialysis Hydralazine 20 mg, 1 mL, No Longer MH Route: IV, Active 018 [place] Drug form: INJ, Q4H, Dosing Weight 68.5, kg, PRN Hypertension, Start date: 04/27/17 3:48:00 [employer], Duration: 30 day, Stop date: 05/27/17 3:47:00 CSTNotes: (Same as: Apresoline) Push over 5 minutes Clonidine 0.1 mg, 1 No Longer MH tab, Route: Active 018 [place] PO, Drug form: TAB, Q12H, Dosing Weight 68.5, kg, Start date: 04/26/17 9:00:00 [employer], Duration: 30 day, Stop date: 05/25/17 21:00:00 CSTNotes: (Same As: Catapres) Losartan 100 mg, 2 No Longer MH tab, Route: Active 018 [place] PO, Drug form: TAB, Q12H, Dosing Weight 68.5, kg, Start date: 04/25/17 21:00:00 [employer], Duration: 30 day, Stop date: 05/25/17 9:00:00 CSTNotes: (Same as: Cozaar) NIFEdipine 90 90 mg, 1 tab, No Longer MH mg oral tablet, Route: PO, Active [place] extended Drug form: release ERTAB, Q12H, Dosing Weight 68.5, kg, Start date: 04/25/17 21:00:00 [employer], Duration: 30 day, Stop date: 05/25/17 9:00:00 CSTNotes: (Same as: Adalat CC,Procardia XL) "Do Not Crush" "Avoid grapefruit and grapefruit juice" Melatonin 3 mg, 1 tab, No Longer MH Route: PO, Active 018 [place] Drug form: TAB, Bedtime, Dosing Weight 68.5, kg, PRN Sleep, Start date: 04/25/17 18:57:00 [employer], Duration: 30 day, Stop date: 05/25/17 18:56:00 CSTNotes: (Same as: Melatonin) Melatonin 2.5 2.5 mg, 1 Inactive MH mg oral capsule cap, Route: 018 [place] PO, Dosing Weight 68.5, kg, Bedtime, PRN as needed for insomnia, Start date: 04/25/17 17:50:00 [employer], Duration: 30 day, Stop date: 05/25/17 17:49:00 [employer] heparin 10,000 unit, No Longer MH 10 mL, Route: Active 018 [place] DIALYSIS, Drug form: INJ, ONCALL, Dosing Weight 68.5, kg, PRN Dialysis, Start date: 04/25/17 7:45:00 [employer], Duration: 1 doses or times, Stop date: Limited # of times albumin human 25 gm, 100 No Longer MH 25% intravenous mL, Route: Active 018 [place] solution IVPB, Drug form: INJ, ONCE, Dosing Weight 68.5, kg, PRN Dialysis, Priority: NOW, Start date: 04/25/17 7:44:00 CSTNotes: Lot #: Mfg: (Same as: Plasbumin-25) "blood product derivative" WASTE: F/P - Red; E -Red MEDICATION WASTE Product Size: 25 gm Product Wasted: ___ gm normal saline 1,000 mL, No Longer MH 0.9% IV 1,000 Rate: 1 Active 018 [place] mL ml/hr, Infuse over: 1000 hr, Route: DIALYSIS, Dosing Weight 68.5 kg, Total Volume: 1,000, Priority: NOW, Start date: 04/25/17 7:43:00 [employer], Duration: 30 day, Stop date: 05/25/17 7:42:00 [employer], 1.79, m2 normal saline 1,000 mL, No Longer MH 0.9% IV 1,000 Rate: 1 Active 018 [place] mL ml/hr, Infuse over: 1000 hr, Route: DIALYSIS, Dosing Weight 68.5 kg, Total Volume: 1,000, Priority: NOW, Start date: 04/25/17 7:42:00 [employer], Duration: 30 day, Stop date: 05/25/17 7:41:00 [employer], 1.79, m2 Isosorbide 90 mg, 4.5 No Longer MH Dinitrate tab, Route: Active 018 [place] PO, Drug form: TAB, QAM, Dosing Weight 68.5, kg, Start date: 04/23/17 9:00:00 [employer], Duration: 30 day, Stop date: 05/22/17 9:00:00 CSTNotes: (Same as:Isordil) Take on empty stomach/ full glass of water Epogen 8,000 unit, No Longer MH 0.8 mL, Active 018 [place] Route: SUB-Q, Drug form: INJ, Q-M-W-F, Dosing Weight 68.5, kg, Priority: Within 8 hours, Start date: 04/22/17 17:00:00 [employer], Duration: 30 day, Stop date: 05/20/17 17:00:00 CSTNotes: (Same as: Procrit) epoetin ana rosa 93866 unit/1 ml VL. For dialysis use only. (Procrit) WASTE: F/P - Red; E -Red MEDICATION WASTE Product Size: 72636 unit Product Wasted: ___ unit Sertraline 50 mg, 1 tab, No Longer MH Route: PO, Active 018 [place] Drug form: TAB, QPM, Dosing Weight 68.5, kg, Start date: 04/22/17 17:00:00 [employer], Duration: 30 day, Stop date: 05/21/17 17:00:00 CSTNotes: (Same as: Zoloft) Doxazosin 4 mg, 4 tab, No Longer MH Route: PO, Active 018 [place] Drug form: TAB, QPM, Dosing Weight 68.5, kg, Start date: 04/22/17 17:00:00 [employer], Duration: 30 day, Stop date: 05/21/17 17:00:00 CSTNotes: (Same as: Cardura) Docusate Sodium 100 mg, 1 No Longer MH 100 MG Oral cap, Route: Active 018 [place] Capsule PO, Drug form: CAP, QAM & PM, Dosing Weight 68.5, kg, Start date: 04/22/17 17:00:00 [employer], Duration: 30 day, Stop date: 05/22/17 8:30:00 CSTNotes: (Same as: Colace) (Do Not Crush) Vitamin D3 1000 5,000 No Longer MH intl units oral IntlUnit, 5 Active 018 [place] tablet tab, Route: PO, Drug form: TAB, QPM, Dosing Weight 68.5, kg, Start date: 04/22/17 17:00:00 [employer], Stop date: 05/21/17 17:00:00 CSTNotes: Same as : Vitamin D3 Tums 1,000 mg, 2 No Longer MH tab, Route: Active 018 [place] CHEW, Drug form: CHEWTAB, QAM & PM, Dosing Weight 68.5, kg, Start date: 04/22/17 17:00:00 [employer], Duration: 30 day, Stop date: 05/22/17 8:30:00 CSTNotes: (Same As: Tums) Calcium Carbonate 500 ar=025 mg elemental calcium Dose= mg calcium carbonate ( mg elemental calcium) Hydralazine 100 mg, 2 No Longer MH Hydrochloride tab, Route: Active 018 [place] 100 MG Oral PO, Drug Tablet form: TAB, TID, Dosing Weight 68.5, kg, Start date: 04/22/17 13:00:00 [employer], Duration: 30 day, Stop date: 05/22/17 9:00:00 CSTNotes: (Same as: Apresoline) May interfere w/enteral feedings Take With Food heparin 5,000 unit, 1 No Longer MH mL, Route: Active 018 [place] SUB-Q, Drug form: INJ, Q12H, Dosing Weight 68.5, kg, Start date: 04/22/17 9:00:00 [employer], Stop date: 05/21/17 21:00:00 CSTNotes: porcine heparin Plavix 75 mg, 1 tab, No Longer MH Route: PO, Active 018 [place] Drug form: TAB, Daily, Dosing Weight 68.5, kg, Start date: 04/22/17 9:00:00 [employer], Duration: 30 day, Stop date: 05/21/17 9:00:00 CSTNotes: (Same As: Plavix) Aspirin 81 mg, 1 tab, No Longer MH Route: PO, Active 018 [place] Drug form: ECTAB, Daily, Dosing Weight 68.5, kg, Start date: 04/22/17 9:00:00 [employer], Duration: 30 day, Stop date: 05/21/17 9:00:00 CSTNotes: Do not crush or chew. (Same As: Ecotrin) Hydralazine 100 mg, 2 Inactive MH tab, Route: 018 [place] PO, Drug form: TAB, Q12H, Dosing Weight 68.5, kg, Start date: 04/22/17 9:00:00 [employer], Duration: 30 day, Stop date: 05/21/17 21:00:00 CSTNotes: (Same as: Apresoline) May interfere w/enteral feedings Take With Food NIFEdipine 90 90 mg=1 tab, Active MH mg oral tablet, PO, QAM & PM, 018 [place] extended 0 Refill(s) release melatonin 5 mg 5 mg=1 tab, Active MH oral tablet PO, Bedtime, 018 [place] PRN for insomnia, # 60 tab, 0 Refill(s) Ascorbic Acid 1 tab, PO, Active MH 60 MG / Biotin QPM, 0 018 [place] 0.3 MG / Folic Refill(s) Acid 0.8 MG / mecobalamin 0.006 MG / Niacinamide 20 MG / pantothenate 10 MG / pyridoxine 10 MG / Riboflavin 1.7 MG / Thiamine 1.5 MG Oral Tablet [Dialyvite 800] sertraline 50 50 mg=1 tab, Active MH mg oral tablet PO, QPM, 0 018 [place] Refill(s) doxazosin 4 mg 4 mg=1 tab, Active MH oral tablet PO, QPM, 0 018 [place] Refill(s) losartan 50 mg 50 mg=1 tab, No Longer MH oral tablet PO, QAM & PM, Active 018 [place] 0 Refill(s) Tums 1,000 mg, Active MH CHEW, QAM & 018 [place] PM, 0 Refill(s) Docusate Sodium 100 mg=1 cap, Active MH 100 MG Oral PO, QAM & PM, 018 [place] Capsule 0 Refill(s) Vitamin D3 5000 5,000 Active intl units oral IntlUnit=1 018 [place] capsule cap, PO, QPM, # 30 cap, 1 Refill(s) Hydralazine 10 mg, 0.5 No Longer MH mL, Route: Active 018 [place] IV, Drug form: INJ, Q4H, Dosing Weight 68.5, kg, PRN Hypertension, Start date: 04/22/17 3:57:00 [employer], Duration: 30 day, Stop date: 05/22/17 3:56:00 CSTNotes: (Same as: Apresoline) Push over 5 minutes Labetalol 20 mg, 4 mL, Inactive Route: IVP, 018 [place] Drug form: INJ, ONCE, Dosing Weight 68.5, kg, Start date: 04/22/17 3:57:00 [employer], Stop date: 04/22/17 3:57:00 [employer] potassium 20 mEq, 1 Inactive MH chloride 20 mEq tab, Route: 018 [place] oral tablet, PO, Drug extended form: ERTAB, release ONCE, Dosing Weight 68.5, kg, Start date: 04/22/17 3:57:00 [employer], Stop date: 04/22/17 3:57:00 CSTNotes: (Same as: K-Dur 20) "Do Not Crush" With food and full glass of water Magnesium 1 gm, 100 mL, Inactive MH Sulfate Route: IVPB, 018 [place] Drug form: INJ, ONCE, Dosing Weight 68.5, kg, Start date: 04/22/17 3:57:00 [employer], Stop date: 04/22/17 3:57:00 CSTNotes: WASTE: F/P - Sink; E - Municipal Trash Bin Isosorbide 90 mg, PO, Active MH Dinitrate QAM, 0 018 [place] Refill(s) Hydralazine 100 mg=1 tab, No Longer MH Hydrochloride PO, TID, 0 Active 018 [place] 100 MG Oral Refill(s) Tablet clopidogrel 75 75 mg=1 tab, Active MH MG Oral Tablet PO, QAM, 0 018 [place] [Plavix] Refill(s) Aspirin 81 mg, PO, Active MH QAM, 0 018 [place] Refill(s) Hydralazine 10 mg, 0.5 Inactive MH mL, Route: 018 [place] IV, Drug form: INJ, ONCE, Dosing Weight 68.5, kg, Start date: 04/22/17 1:46:00 [employer], Stop date: 04/22/17 1:46:00 CSTNotes: (Same as: Apresoline) Push over 5 minutes Insulin Lispro 1 unit, 0.01 No Longer MH mL, Route: Active 018 [place] SUB-Q, Drug form: SOLN, Bedtime, Dosing Weight 68.5, kg, PRN Blood Glucose Results, Start date: 04/22/17 1:43:00 [employer], Duration: 30 day, Stop date: 05/22/17 1:42:00 CSTNotes: Roll in palms of hands gently; Do not shake `vigorously. (Same as: Humalog ) "Single Patient Use Only " WASTE: F/P - Black; E - Municipal Trash Bin Stable for 28 days at room temperature. Expires in days from _Date Dextrose 50% 12.5 gm, 25 No Longer MH Syringe mL, Route: Active 018 [place] IVP, Drug Form: INJ, Dosing Weight 68.5, kg, PRN, PRN Blood Glucose Results, Start date: 04/22/17 1:43:00 [employer], Duration: 30 day, Stop date: 05/22/17 1:42:00 [employer] Glucagon 1 mg, Route: No Longer MH IM, Drug Active 018 [place] form: PDR/INJ, PRN, Dosing Weight 68.5, kg, PRN Blood Glucose Results, Start date: 04/22/17 1:43:00 [employer], Duration: 30 day, Stop date: 05/22/17 1:42:00 [employer] NIFEdipine 60 60 mg, 2 tab, No Longer MH mg oral tablet, Route: PO, Active 018 [place] extended Drug form: release ERTAB, Q12H, Dosing Weight 68.5, kg, Start date: 04/22/17 1:40:00 [employer], Duration: 30 day, Stop date: 05/21/17 21:00:00 CSTNotes: (Same as: Adalat CC, Procardia XL) Give on empty stomach. Take 1 hour before or 2 hours after meal; "Avoid grapefruit and grapefruit juice". Do not crush Losartan 50 mg, 1 tab, No Longer MH Route: PO, Active 018 [place] Drug form: TAB, Q12H, Dosing Weight 68.5, kg, Start date: 04/22/17 1:40:00 [employer], Stop date: 05/21/17 21:00:00 CSTNotes: (Same as: Cozaar) Acetaminophen 650 mg, 2 No Longer MH tab, Route: Active 018 [place] PO, Drug form: TAB, Q4H, Dosing Weight 68.5, kg, PRN Pain 1-3/Temp > 100.4 F, Start date: 04/22/17 1:26:00 [employer], Duration: 30 day, Stop date: 05/22/17 1:25:00 CSTNotes: Do not exceed 4 gm/day. (Same as: Tylenol) Allergies, Adverse Reactions, Alerts Substance Category Reaction Severity Reaction Status Date Comments Source type Reported penicillins Assertion Drug Active Data MH <sup>1</sup allergy migrated [place] > from [employer] on 10/17/14. Originally documented as PENICILLIN. diazepam<ochoa Assertion Drug Active Data MH p>2</sup> allergy migrated [place] from [employer] on 07/18/14. Originally documented as VALIUM. fexofenadin Assertion Drug Active Data e<sup>3</ochoa allergy migrated [place] p> from [employer] on 07/18/14. Originally documented as FANY ALLERGY. gatifloxaci Assertion Drug Active Data n<sup>4</ochoa allergy migrated [place] p> from [employer] on 07/18/14. Originally documented as TEQUIN. Tequin Assertion Drug Active MH allergy [place] DULoxetine< Assertion Drug Active Data MH sup>5</sup> allergy migrated [place] from [employer] on 07/18/14. Originally documented as CYMBALTA. Immunizations Immunization Date Given Site Status Last Comments Source Updated Hx influenza 12/23/2011 completed [facility] Result [facility] vaccine-unspecifi Comment: flu ed<sup>1</sup> shot. Migrated from [facility] ; Data migrated from [employer] on 04/22/2015. Results Order Name Results Value Reference Date Interpretation Comments Source Range ELECTROLYTE AGAP 10.8 meq/L 10.0 - 02 S 20.0 /2017 [place] ELECTROLYTE eGFR 15 04/29 Result Comment: The eGFR is calculated using the CKD-EPI formula. In most young, healthy individuals the eGFR will be >90 mL/ min/1.73m2. The eGFR declines with age. An eGFR of 60-89 may be normal in S mL/min/1.7 /2018 some populations, particularly the elderly, for whom the CKD-EPI formula has not been extensively validated. Use of the eGFR is not recommended in the following populations: [place] 3m2 Individuals with unstable creatinine concentrations, including patients and those with serious co-morbid conditions. Patients with extremes in muscle mass or diet. The data above are obtained from the National Kidney Disease Education Program (NKDEP) which additionally recommends that when the eGFR is used in patients with extremes of body mass index for purposes of drug dosing, the eGFR should be multiplied by the estimated BMI. ELECTROLYTE Calcium Lvl 8.5 mg/dL 8.5 - 10.5 04/29 [place] ELECTROLYTE Creatinine 3.11 mg/dL 0.50 - 02 S Lvl 1.40 /2017 [place] ELECTROLYTE Glucose Lvl 82 mg/dL 70 - 99 04/29 S [place] ELECTROLYTE Sodium Lvl 135 meq/L 135 - 145 04/29 S [place] ELECTROLYTE Chloride Lvl 99 meq/L 95 - 109 04/29 S [place] ELECTROLYTE CO2 30 meq/L 24 - 32 04/29 S [place] ELECTROLYTE Potassium 4.8 meq/L 3.5 - 5.1 04/29 S Lvl /2017 [place] ELECTROLYTE BUN 19 mg/dL 7 - 22 04/29 [place] HEMATOLOGY Basophils 0.7 % 0.0 - 1.0 04/29 [place] HEMATOLOGY Eosinophils 1.3 % 0.0 - 4.0 04/29 [place] HEMATOLOGY Segs 74.6 % 45.0 - 04/29 MH 75.0 [place] HEMATOLOGY Monocytes # 0.4 K/CMM 0.0 - 0.8 04/29 [place] HEMATOLOGY Segs-Bands # 3.9 K/CMM 1.5 - 8.1 04/29 [place] HEMATOLOGY Lymphocytes 0.8 K/CMM 1.0 - 5.5 04/29 [place] HEMATOLOGY Eosinophils 0.1 K/CMM 0.0 - 0.5 04/29 [place] HEMATOLOGY Lymphocytes 15.1 % 20.0 - 04/29 MH 40.0 [place] HEMATOLOGY Monocytes 8.3 % 2.0 - 12.0 04/29 [place] HEMATOLOGY RDW 14.7 % 11.5 - 04/29 MH 14.5 [place] HEMATOLOGY Platelet 204 K/CMM 133 - 450 04/29 [place] HEMATOLOGY MPV 8.5 fL 7.4 - 10.4 04/29 [place] HEMATOLOGY MCV 96.8 fL 80.0 - 04/29 98.0 [place] HEMATOLOGY Hct 28.5 % 36.0 - 02 MH 48.0 [place] HEMATOLOGY MCHC 35.6 g/dL 32.0 - 04/29 MH 36.0 [place] HEMATOLOGY MCH 34.4 pg 27.0 - 02 MH 31.0 [place] HEMATOLOGY WBC 5.2 K/CMM 3.7 - 10.4 04/29 [place] HEMATOLOGY RBC 2.94 M/CMM 4.20 - 04/29 MH 5.40 [place] HEMATOLOGY Hgb 10.1 g/dL 12.0 - 04/29 MH 16.0 [place] ELECTROLYTE Potassium 5.3 meq/L 3.5 - 5.1 04/28 S Lvl [place] BLOOD BANK ABO/Rh A NEG 04/28 RESULTS [place] BLOOD BANK Antibody Negative 04/28 RESULTS Scrn [place] (04/28/17 7:30 AM) BLOOD BANK RBC product Product available 04/28 Result Comment: 2017 09:20 [id number] RESULTS Blood available, notified Ravi Deleon at 04/28/2017 09:19 by VV. Leonardo (04/28/17 7:00 AM) CHEM PANEL eGFR 9 04/28 Result Comment: The eGFR is calculated using the CKD-EPI formula. In most young, healthy individuals the eGFR will be >90 mL/ min/1.73m2. The eGFR declines with age. An eGFR of 60-89 may be normal in mL/min/1. some populations, particularly the elderly, for whom the CKD-EPI formula has not been extensively validated. Use of the eGFR is not recommended in the following populations: [place] 3m2 Individuals with unstable creatinine concentrations, including patients and those with serious co-morbid conditions. Patients with extremes in muscle mass or diet. The data above are obtained from the National Kidney Disease Education Program (NKDEP) which additionally recommends that when the eGFR is used in patients with extremes of body mass index for purposes of drug dosing, the eGFR should be multiplied by the estimated BMI. CHEM PANEL Calcium Lvl 8.2 mg/dL 8.5 - 10.5 04/28 [place] CHEM PANEL CO2 29 meq/L 24 - 32 04/28 [place] CHEM PANEL Sodium Lvl 130 meq/L 135 - 145 04/28 [place] CHEM PANEL Chloride Lvl 97 meq/L 95 - 109 04/28 [place] CHEM PANEL Potassium 5.7 meq/L 3.5 - 5.1 08 MH Lvl /2017 [place] CHEM PANEL BUN 37 mg/dL 7 - 22 04/28 [place] CHEM PANEL Glucose Lvl 87 mg/dL 70 - 99 02 [place] CHEM PANEL Creatinine 4.70 mg/dL 0.50 - 02 MH Lvl 1.40 [place] CHEM PANEL AGAP 9.7 meq/L 10.0 - 02 MH 20.0 [place] HEMATOLOGY Platelet 176 K/CMM 133 - 450 02 [place] HEMATOLOGY MPV 8.1 fL 7.4 - 10.4 04/28 [place] HEMATOLOGY RDW 13.6 % 11.5 - 04/28 MH 14.5 [place] HEMATOLOGY MCH 34.9 pg 27.0 - 04/28 MH 31.0 [place] HEMATOLOGY MCHC 35.4 g/dL 32.0 - 04/28 MH 36.0 [place] HEMATOLOGY Hgb 6.5 g/dL 12.0 - 04/28 Result MH 16.0 Comment: [place] Critical Result(s) called to andrew fuentes at 04/28/2017 04:20 by gg. Read back OK. HEMATOLOGY MCV 98.6 fL 80.0 - 04/28 MH 98.0 [place] HEMATOLOGY Hct 18.5 % 36.0 - 04/28 Result MH 48.0 Comment: [place] Critical Result(s) called to andrew fuentes at 04/28/2017 04:20 by gg. Read back OK. HEMATOLOGY WBC 4.2 K/CMM 3.7 - 10.4 04/28 [place] HEMATOLOGY RBC 1.87 M/CMM 4.20 - 0208 MH 5.40 [place] HEMATOLOGY Monocytes # 0.4 K/CMM 0.0 - 0.8 04/28 [place] HEMATOLOGY Eosinophils 0.1 K/CMM 0.0 - 0.5 08 MH # /2017 [place] HEMATOLOGY Segs-Bands # 2.7 K/CMM 1.5 - 8.1 04/28 [place] HEMATOLOGY Lymphocytes 1.0 K/CMM 1.0 - 5.5 04/28 MH # /2017 [place] HEMATOLOGY Lymphocytes 24.2 % 20.0 - 02/08 MH 40.0 /2018 [place] HEMATOLOGY Segs 64.0 % 45.0 - 04/28 MH 75.0 /2018 [place] HEMATOLOGY Monocytes 8.8 % 2.0 - 12.0 04/28 /2017 [place] HEMATOLOGY Eosinophils 2.1 % 0.0 - 4.0 04/28 MH /2017 [place] HEMATOLOGY Basophils 0.9 % 0.0 - 1.0 04/28 [place] HEMATOLOGY WBC 4.2 K/CMM 3.7 - 10.4 04/28 [place] HEMATOLOGY Hct 19.3 % 36.0 - 02 Result MH 48.0 /2017 Comment: [place] Critical Result(s) called to Elle Fuentes RN at 04/27/2017 20:13 by [facility]. Read back OK. HEMATOLOGY MCV 98.8 fL 80.0 - 04/28 MH 98.0 [place] HEMATOLOGY Hgb 7.0 g/dL 12.0 - 04/28 Result MH 16.0 Comment: [place] Critical Result(s) called to Elle Fuentes RN at 04/27/2017 20:12 by [facility]. Read back OK. HEMATOLOGY MCH 35.6 pg 27.0 - 04/28 MH 31.0 /2017 [place] HEMATOLOGY RBC 1.95 M/CMM 4.20 - 04/28 MH 5.40 /2018 [place] HEMATOLOGY MPV 8.6 fL 7.4 - 10.4 04/28 MH [place] HEMATOLOGY Platelet 183 K/CMM 133 - 450 04/28 [facility] MCHC 36.0 g/dL 32.0 - 04/28 MH 36.0 [place] HEMATOLOGY RDW 13.8 % 11.5 - 04/28 MH 14.5 [place] Chest 2 Chest 2 EXAM: Chest 2 views DX 04/27 [facility] DX views DX /2017 - [place] DATE: 04/27/2017 7:21 PM V [employer] INDICATION: - Shortness of Breath Read by: Niels Romero MD Dictated Date/time: 04/27/17 21:21 COMPARISON: None. Electronically Signed by: Niels Romero MD 04/27/17 21:22 FINAL REPORT IMPRESSION: Mildly enlarged cardiac silhouette. Atherosclerotic thoracic aorta. Probable extensive vascular congestive change and pulmonary edema are present. Small right pleural effusion may be present. No significant pneumothorax detected. SL: JNGUYEN-PC ELECTROLYTE Chloride Lvl 97 meq/L 95 - 109 04/26 [place] ELECTROLYTE Sodium Lvl 133 meq/L 135 - 145 04/26 [place] ELECTROLYTE Creatinine 3.24 mg/dL 0.50 - 04/26 S Lvl 1.40 /2017 [place] ELECTROLYTE CO2 31 meq/L 24 - 32 04/26 [place] ELECTROLYTE Calcium Lvl 8.4 mg/dL 8.5 - 10.5 04/26 [place] ELECTROLYTE AGAP 9.2 meq/L 10.0 - 04/26 S 20.0 /2017 [place] ELECTROLYTE Glucose Lvl 75 mg/dL 70 - 99 04/26 [place] ELECTROLYTE BUN 22 mg/dL 7 - 22 04/26 [place] ELECTROLYTE eGFR 14 04/26 Result Comment: The eGFR is calculated using the CKD-EPI formula. In most young, healthy individuals the eGFR will be >90 mL/ min/1.73m2. The eGFR declines with age. An eGFR of 60-89 may be normal in [facility] mL/min/1. some populations, particularly the elderly, for whom the CKD-EPI formula has not been extensively validated. Use of the eGFR is not recommended in the following populations: [place] 3m2 Individuals with unstable creatinine concentrations, including patients and those with serious co-morbid conditions. Patients with extremes in muscle mass or diet. The data above are obtained from the National Kidney Disease Education Program (NKDEP) which additionally recommends that when the eGFR is used in patients with extremes of body mass index for purposes of drug dosing, the eGFR should be multiplied by the estimated BMI. IMMUNOLOGY Hep Bs Ag Negative Negative 04/22 [place] *NA* (04/22/17 9:31 AM) ANEMIA TRANSFERRIN 124 mg/dL 212 - 360 04/22 [place] ANEMIA Ferritin Lvl 1690 ng/mL 5 - 204 04/22 [place] ANEMIA % S[place] Fe 16 % 12 - 57 04/22 [place] ANEMIA UIBC 128 ug/dl 110 - 370 04/22 [place] ANEMIA TIBC 153 ug/dl 228 - 428 04/22 [place] ANEMIA Iron 25 ug/dl 30 - 160 02/ STUDY /2017 [place] CARDIAC Troponin-I 0.06 ng/mL 0.00 - 02/ ENZYMES 0.40 /2017 [place] CARDIAC Total CK 70 unit/L 12 - 191 04/22 ENZYMES /2017 [place] CARDIAC proBNP 15871 0 - 450 04/22 ENZYMES pg/mL [place] CHEM PANEL Phosphorus 2.4 mg/dL 2.5 - 4.5 04/22 [place] CHEM PANEL Magnesium 2.2 mg/dL 1.8 - 2.4 04/22 Lvl /2017 [place] CHEM PANEL B/C Ratio 7 6 - 25 04/22 [place] CHEM PANEL A/G Ratio 1.0 0.7 - 1.6 04/22 [place] CHEM PANEL Globulin 2.9 g/dL 2.7 - 4.2 04/22 [place] CHEM PANEL Albumin Lvl 2.9 g/dL 3.5 - 5.0 04/22 [place] CHEM PANEL Bili Total 0.6 mg/dL 0.2 - 1.3 04/22 [place] CHEM PANEL AST 18 unit/L 0 - 37 04/22 [place] CHEM PANEL ALT 16 unit/L 0 - 65 04/22 [place] CHEM PANEL Alk Phos 69 unit/L 39 - 136 04/22 [place] CHEM PANEL Total 5.8 g/dL 6.4 - 8.4 04/22 [place] HEMATOLOGY Monocytes # 0.5 K/CMM 0.0 - 0.8 04/22 [place] HEMATOLOGY Lymphocytes 0.6 K/CMM 1.0 - 5.5 04/22 MH /2017 [place] HEMATOLOGY Segs 83.9 % 45.0 - 02/ MH 75.0 [place] HEMATOLOGY Basophils 0.5 % 0.0 - 1.0 04/22 [place] HEMATOLOGY Eosinophils 0.7 % 0.0 - 4.0 04/22 [place] HEMATOLOGY Lymphocytes 8.2 % 20.0 - 02 MH 40.0 [place] HEMATOLOGY Monocytes 6.7 % 2.0 - 12.0 04/22 [place] HEMATOLOGY Segs-Bands # 5.7 K/CMM 1.5 - 8.1 02 [place] HEMATOLOGY INR 1.12 0.85 - 04/22 MH 1. [place] HEMATOLOGY PT 14.4 s 12.0 - 04/22 MH 14. [place] HEMATOLOGY PTT 34.0 s 22.9 - 04/22 MH 35.8 [place] CARDIAC Troponin-I 0.04 ng/mL 0.00 - 04/22 ENZYMES 0.40 [place] CARDIAC Total CK 85 unit/L 12 - 191 04/22 ENZYMES [place] CARDIAC CK MB Index null 0.0 - 2.5 04/22 ENZYMES [place] CARDIAC CK MB null 0.5 - 3.6 04/22 ENZYMES [place] BACTERIAL - MRSA by PCR Negative 04/22 SEROLOGY [place] (04/22/17 2:38 AM) CHEM PANEL AST 18 unit/L 0 - 37 04/22 [place] CHEM PANEL Alk Phos 74 unit/L 39 - 136 04/22 [place] CHEM PANEL Bili Total 0.7 mg/dL 0.2 - 1.3 04/22 [place] CHEM PANEL Albumin Lvl 3.1 g/dL 3.5 - 5.0 04/22 [place] CHEM PANEL Total 6.9 g/dL 6.4 - 8.4 04/22 [place] CHEM PANEL Globulin 3.8 g/dL 2.7 - 4.2 04/22 [place] CHEM PANEL A/G Ratio 0.8 0.7 - 1.6 04/22 [place] CHEM PANEL ALT 14 unit/L 0 - 65 04/22 [place] CHEM PANEL B/C Ratio 7 6 - 25 04/22 [place] CHEM PANEL Magnesium 1.9 mg/dL 1.8 - 2.4 04/22 Lvl [place] HEMATOLOGY INR 1.10 0.85 - 04/22 MH 1. [place] HEMATOLOGY PT 14.2 s 12.0 - 04/22 MH 14. [place] HEMATOLOGY PTT 37.7 s 22.9 - 04/22 MH 35.8 [place] HEMATOLOGY Eosinophils 0.1 K/CMM 0.0 - 0.5 04/22 MH [place] Vital Signs Vital Sign Value Date Comments Source Heart Rate 66 04/29/2017 [facility] Systolic (mm Hg) 173 04/29/2017 [facility] Diastolic (mm Hg) 50 04/29/2017 [facility] Systolic (mm Hg) 176 04/29/2017 [facility] Diastolic (mm Hg) 50 04/29/2017 [facility] Respitory Rate 17 04/29/2017 [facility] Heart Rate 57 04/29/2017 [facility] Temperature Oral (F) 98.4 F 04/29/2017 [facility] Temperature Oral (F) 97.8 F 04/29/2017 [facility] Heart Rate 57 04/29/2017 [facility] Respitory Rate 16 04/29/2017 [facility] Systolic (mm Hg) 159 04/29/2017 [facility] Diastolic (mm Hg) 75 04/29/2017 [facility] Respitory Rate 16 04/29/2017 [facility] Temperature Oral (F) 98.4 F 04/29/2017 [facility] BMI Calculated 25.13 04/22/2017 [facility] Weight 68.5 04/22/2017 [facility] Height 165.1 cm 04/22/2017 [facility] BMI Calculated 25.13 04/22/2017 [facility] Weight 68.5 04/22/2017 [facility] Height 165.1 cm 04/22/2017 [facility] Height 165.1 cm 04/22/2017 [facility] Encounters Location Location Encounter Encounter Reason Attending ADM DC Status Source Details Type Number For Provider Date Date [facility] [id number] [place] 04/22 04/30 Hugo Banuelosid /2017 [facility] Procedures Procedure Code Date Perfomer Comments Source Bilateral extraction [id number] [facility] of cataracts Caesarean section [id number] [facility] Carotid angiogram [id number] [facility] Cholecystectomy [id number] [facility] Provision of stents [id number] Kidney [facility] or bite stents blocks<sup>1</sup> placed
--- OUTSIDE RECORDS SUMMARY | 2018-04-17 10:02 | XMS REPORT ---
:1930 [facility] Address [address] [place] [address] [address]. [address] [place] [address] Care Team Providers Name Role Phone Unavailable Unavailable Unavailable Problems This patient has no known problems. Allergies, Adverse Reactions, Alerts This patient has no known allergies or adverse reactions. Medications This patient has no known medications.
[2018-04-17 12:08] LABS: Absolute Lymphocytes (CBC) 1.3 K/uL (0.7-4.9); Absolute Monocytes 0.5 K/uL (0.1-1.3); Absolute Neutrophil 4.3 K/uL (1.8-8.0); Basophils % 0.4 % (0-1.3); Eosinophils % 2.3 % (0-4.4); Hematocrit 16.4 % (36.0-45.0); Lymphocytes % 20.9 % (15.3-44.8); MPV 9.4 fL (7.6-11.3); Monocytes % 7.5 % (3.3-12.3); RBC Red Blood Cell Count 1.61 M/uL (3.86-4.86)
[2018-04-17 12:18] LABS: Bilirubin Total 0.4 mg/dL (0.2-1.0); Potassium 3.4 mmol/L (3.5-5.1); Protein, Total 6.4 g/dL (6.4-8.2)
--- NOTE | 2018-04-17 12:54 | EDPHYS ---
Physician Documentation [facility] Name: Erendira Graham Age: 87 yrs Sex: Female : 1930 Arrival Date: 04/17/2018 Time: 09:59 Bed 19 Private MD: Kieran Guardado ED Physician Debby Chaves HPI: 04/17 11:39 This 87 yrs old Black Female presents to ER via Wheelchair with complaints of Blood ma2 Transfusion. 11:39 Onset: The symptoms/episode began/occurred gradually, 3 day(s) ago. Current symptoms: ma2 none. The patient has experienced a previous episode. sent from [facility] for HB of 5, they are unable to do transfusion there. Historical: - Allergies: 10:04 Karlene; sv 10:04 Bactrim; sv 10:04 Ciprofloxacin; sv 10:04 Demerol; sv 10:04 PENICILLINS; sv 10:04 Talwin; sv 10:04 tequin; sv - Home Meds: 10:10 acetaminophen-codeine 300-30 mg Oral tab 1 tab as needed for Pain [Active]; aspirin 81 tw2 mg Oral TbEC 1 tab once daily [Active]; clonidine HCl 0.3 mg Oral tab 1 tab 2 times per day [Active]; docusate sodium 100 mg Oral tab 2 times per day [Active]; DIALYVITE 800 0.8 mg Oral tab [Active]; doxazosin 8 mg Oral tab twice a day [Active]; hydralazine 100 mg Oral tab 3 times per day [Active]; isosorbide mononitrate 30 mg Oral Tb24 twice a day [Active]; melatonin 5 mg Oral tab nightly [Active]; minoxidil 2.5 mg Oral tab 1 tabs 2 times per day [Active]; nifedipine 90 mg Oral TbER twice a day [Active]; sertraline 50 mg Oral tab 1 tab once daily [Active]; Plavix 75 mg Oral tab 1 tab once daily [Active]; Vitamin D Oral 5000 unit daily [Active]; Tums 300 mg (750 mg) Oral chew [Active]; - PMHx: 10:04 CHF; Diabetes - NIDDM; Dialysis; ESRD; Hypertension; sv - PSHx: 10:04 L arm fistula; Cholecystectomy; Carotid surgery; Kidney stents; sv - Immunization history:: Adult Immunizations up to date. - Social history:: Smoking status: Patient/guardian denies using tobacco, Patient/guardian denies using alcohol, street drugs, The patient lives with family. - Ebola Screening: : No symptoms or risks identified at this time. - Family history:: not pertinent. - Hospitalizations: : No recent hospitalization is reported. ROS: 11:39 Constitutional: Negative for fever, chills, and weight loss, Cardiovascular: Negative ma2 for chest pain, palpitations, and edema, Respiratory: Negative for shortness of breath, cough, wheezing, and pleuritic chest pain, Back: Negative for injury and pain. 11:39 All other systems are negative. Exam: 11:39 Constitutional: This is a well developed, well nourished patient who is awake, alert, ma2 and in no acute distress. Neck: Trachea midline, no thyromegaly or masses palpated, and no cervical lymphadenopathy. Supple, full range of motion without nuchal rigidity, or vertebral point tenderness. No Meningismus. Chest/axilla: Normal chest wall appearance and motion. Nontender with no deformity. No lesions are appreciated. Cardiovascular: Regular rate and rhythm with a normal S1 and S2. No gallops, murmurs, or rubs. Normal PMI, no JVD. No pulse deficits. Respiratory: Lungs have equal breath sounds bilaterally, clear to auscultation and percussion. No rales, rhonchi or wheezes noted. No increased work of breathing, no retractions or nasal flaring. Abdomen/GI: Soft, non-tender, with normal bowel sounds. No distension or tympany. No guarding or rebound. No evidence of tenderness throughout. Vital Signs: 10:04 BP 107 / 33; Pulse 84; Resp 16; Temp 98.8; Pulse Ox 100% ; Height 5 ft. 5 in. (165.10 sv cm); 11:43 BP 129 / 49; Pulse 81; Resp 18; Temp 98.0(TE); Pulse Ox 97% on R/A; mh5 12:49 BP 138 / 52; Pulse 81; Resp 14; Pulse Ox 100% on R/A; tw2 13:26 BP 136 / 49; Pulse 81; Resp 18; Pulse Ox 99% on R/A; tw2 14:52 BP 131 / 50; Pulse 81; Resp 16; Pulse Ox 100% on R/A; tw2 MDM: 10:36 Patient medically screened. ma2 12:52 Data reviewed: vital signs, nurses notes, lab test result(s). Counseling: I had a ma2 detailed discussion with the patient and/or guardian regarding: the historical points, exam findings, and any diagnostic results supporting the discharge/admit diagnosis, the presence of at least one elevated blood pressure reading (>120/80) during this emergency department visit. ED course: discussed with dr. Cabrera and chandu and accepted by dr. balderas. 04/17 10:57 Order name: CBC with Diff; Complete Time: 12:30 [facility] 04/17 10:57 Order name: CMP; Complete Time: 12:30 [facility] 04/17 11:13 Order name: Type And Screen iw 04/17 11:15 Order name: Bb Add On bd 04/17 12:33 Order name: Packed RBC Leukored -1 EDNE 04/17 10:58 Order name: IV Start; Complete Time: 12:47 [facility] 04/17 12:47 Order name: Consent for Blood Transfusion; Complete Time: 12:51 [facility] 04/17 12:51 Order name: Hemacult; Complete Time: 13:11 [facility] 04/17 13:02 Order name: CONS Physician Consult [facility] Administered Medications: 13:22 Not Given (to be given in dialysis prior to transfusion): Benadryl 12.5 mg IVP once; tw2 give prior to transfusion 13:23 Not Given (to be given in dialysis prior to transfusion): Tylenol 650 mg PO once; give tw2 prior to transfusion Disposition: 04/17/18 12:54 Hospitalization ordered by Ashanti Balderas for Observation. 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 - Bed requested for Telemetry/MedSurg (observation). - Status is Observation. tw2 - Condition is Stable. - Problem is new. - Symptoms are unchanged. UTI on Admission? No Signatures: Dispatcher [employer] EDMS Mohini Jc Stephanie, RN RN sv Wise, Tara, RN RN 2 Debby Chaves MD MD [facility] Corrections: (The following items were deleted from the chart) 14:34 12:54 Hospitalization Ordered by Ashanti Balderas MD for Observation. 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 Bed requested for Telemetry/MedSurg (observation). Status is Observation. Condition is Stable. Problem is new. Symptoms are unchanged. UTI on Admission? No. ma2 14:57 14:34 04/17/2018 12:54 Hospitalization Ordered by Ashanti Balderas MD for Observation. 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 Bed requested for Telemetry/MedSurg (observation). Status is Observation. Condition is Stable. Problem is new. Symptoms are unchanged. UTI on Admission? No. bd
--- NOTE | 2018-04-17 12:54 | ER ---
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 sv Transition of care: patient was not received from another setting of care. Onset of symptoms was April 17, 2018. Care prior to arrival: None. 10:02 Method Of Arrival: Wheelchair sv 10:02 Acuity: KEKE 3 sv 10:06 Risk Assessment: Do you want to hurt yourself or someone else? Patient reports no tw2 desire to harm self or others. Initial Sepsis Screen: Does the patient meet any 2 criteria? No. Patient's initial sepsis screen is negative. Does the patient have a suspected source of infection? No. Patient's initial sepsis screen is negative. Historical: - Allergies: 10:04 Karlene; sv 10:04 Bactrim; sv 10:04 Ciprofloxacin; sv 10:04 Demerol; sv 10:04 PENICILLINS; sv 10:04 Talwin; sv 10:04 tequin; sv - Home Meds: 10:10 acetaminophen-codeine 300-30 mg Oral tab 1 tab as needed for Pain [Active]; aspirin 81 tw2 mg Oral TbEC 1 tab once daily [Active]; clonidine HCl 0.3 mg Oral tab 1 tab 2 times per day [Active]; docusate sodium 100 mg Oral tab 2 times per day [Active]; DIALYVITE 800 0.8 mg Oral tab [Active]; doxazosin 8 mg Oral tab twice a day [Active]; hydralazine 100 mg Oral tab 3 times per day [Active]; isosorbide mononitrate 30 mg Oral Tb24 twice a day [Active]; melatonin 5 mg Oral tab nightly [Active]; minoxidil 2.5 mg Oral tab 1 tabs 2 times per day [Active]; nifedipine 90 mg Oral TbER twice a day [Active]; sertraline 50 mg Oral tab 1 tab once daily [Active]; Plavix 75 mg Oral tab 1 tab once daily [Active]; Vitamin D Oral 5000 unit daily [Active]; Tums 300 mg (750 mg) Oral chew [Active]; - PMHx: 10:04 CHF; Diabetes - NIDDM; Dialysis; ESRD; Hypertension; sv - PSHx: 10:04 L arm fistula; Cholecystectomy; Carotid surgery; Kidney stents; sv - Immunization history:: Adult Immunizations up to date. - Social history:: Smoking status: Patient/guardian denies using tobacco, Patient/guardian denies using alcohol, street drugs, The patient lives with family. - Ebola Screening: : No symptoms or risks identified at this time. - Family history:: not pertinent. - Hospitalizations: : No recent hospitalization is reported. Screenin:07 Abuse screen: Denies threats or abuse. Nutritional screening: No deficits noted. tw2 Tuberculosis screening: No symptoms or risk factors identified. Fall Risk Secondary diagnosis (15 points) impaired mobility. Assessment: 11:15 General: Appears in no apparent distress. well groomed, Behavior is flat, quiet. Pain: tw2 Denies pain. Neuro: Level of Consciousness is awake, alert, obeys commands, Oriented to person, place, time, situation. Cardiovascular: Denies chest pain, shortness of breath, Heart tones S1 S2 Patient's skin is warm and dry. Respiratory: Airway is patent Respiratory effort is even, unlabored, Respiratory pattern is regular, symmetrical, Breath sounds are clear bilaterally. GI: No signs and/or symptoms were reported involving the gastrointestinal system. Abdomen is flat, Bowel sounds present X 4 quads. : No signs and/or symptoms were reported regarding the genitourinary system. EENT: No signs and/or symptoms were reported regarding the EENT system. Derm: No signs and/or symptoms reported regarding the dermatologic system. Musculoskeletal: Range of motion: intact in all extremities. 11:47 Reassessment: Patient appears in no apparent distress at this time. No changes from tw2 previously documented assessment. Patient and/or family updated on plan of care and expected duration. Pain level reassessed. Patient is alert, oriented x 3, equal unlabored respirations, skin warm/dry/pink. 12:21 Reassessment: CRITICAL LAB: 5.5 hgb, 16.4 hct, notified Dr. Cahves. tw2 12:50 Reassessment: Patient appears in no apparent distress at this time. No changes from tw2 previously documented assessment. Patient and/or family updated on plan of care and expected duration. Pain level reassessed. Patient is alert, oriented x 3, equal unlabored respirations, skin warm/dry/pink. 13:20 Reassessment: PER DR. CHAVEZ, the 2 units of PRBC's to be give with dialysis, ER provider tw2 notified. 13:27 Reassessment: Patient appears in no apparent distress at this time. No changes from tw2 previously documented assessment. Patient and/or family updated on plan of care and expected duration. Pain level reassessed. Patient is alert, oriented x 3, equal unlabored respirations, skin warm/dry/pink. 14:52 Reassessment: Patient appears in no apparent distress at this time. No changes from tw2 previously documented assessment. Patient and/or family updated on plan of care and expected duration. Pain level reassessed. Patient is alert, oriented x 3, equal unlabored respirations, skin warm/dry/pink. Vital Signs: 10:04 BP 107 / 33; Pulse 84; Resp 16; Temp 98.8; Pulse Ox 100% ; Height 5 ft. 5 in. (165.10 sv cm); 11:43 BP 129 / 49; Pulse 81; Resp 18; Temp 98.0(TE); Pulse Ox 97% on R/A; mh5 12:49 BP 138 / 52; Pulse 81; Resp 14; Pulse Ox 100% on R/A; tw2 13:26 BP 136 / 49; Pulse 81; Resp 18; Pulse Ox 99% on R/A; tw2 14:52 BP 131 / 50; Pulse 81; Resp 16; Pulse Ox 100% on R/A; tw2 ED Course: 09:59 Patient arrived in ED. mr 09:59 Kieran Guardado DO is Private Physician. mr 10:03 Triage completed. sv 10:05 Arm band placed on. sv 10:07 Bed in low position. Call light in reach. Adult w/ patient. patient monitor on. Pulse tw2 ox on. NIBP on. Warm blanket given. 10:36 Debby Chaves MD is Attending Physician. ma2 10:58 Leah Spencer, JONH is Primary Nurse. tw2 11:20 Missed attempt(s): 20 gauge in right antecubital area. per Hector Hancock. Missed tw2 attempt(s): 22 gauge in right antecubital area. per Tech. Karissa Bleeding controlled, band aid applied, catheter tip intact. 11:39 Missed attempt(s): 22 gauge in right forearm. per JONH Brown. tw2 11:39 Inserted saline lock: 22 gauge in right hand, using aseptic technique. ,using aseptic tw2 technique. per JONH Brown Blood collected. 12:53 Ashanti Charles MD is Hospitalizing Provider. ma2 13:12 occult blood via rectal exam performed by Dr. Chaves, results are NEGATIVE. tw2 14:46 Patient admitted, IV remains in place. tw2 Administered Medications: 13:22 Not Given (to be given in dialysis prior to transfusion): Benadryl 12.5 mg IVP once; tw2 give prior to transfusion 13:23 Not Given (to be given in dialysis prior to transfusion): Tylenol 650 mg PO once; give tw2 prior to transfusion Outcome: 12:54 Decision to Hospitalize by Provider. ma2 14:46 Admitted to Med/surg accompanied by hector, via stretcher, room 411, with chart, Report tw2 called to JONH Beltran 14:46 Condition: stable 14:46 Instructed on the need for admit. 14:57 Patient left the ED. tw2 Signatures: Arti Del Toro RN RN sv Rivera, Mary mr Wise, Tara, RN RN 2 Lara Crespo [facility] Debby Chaves MD MD [facility] Corrections: (The following items were deleted from the chart) 11:47 11:20 Missed attempt(s): 22 gauge tw2 tw2 11:47 11:20 Missed attempt(s): 22 gauge in right hand. per JONH Brown. Bleeding controlled, tw2 band aid applied, catheter tip intact. tw2 11:47 11:42 Missed attempt(s): mh5 tw2
[2018-04-17] MEDS ORDERED: ONDANSETRON 4 MG/2 ML VIAL IV PRN (15:14)
[2018-04-17 15:23] VITALS: BMI 24.8
[2018-04-17 15:28] VITALS: O2SAT 100
[2018-04-17] MEDS ORDERED: NA CHLORIDE 0.9% 1,000 ML IV PRN (15:29)
[2018-04-17] MEDS ORDERED: EPOETIN ALFA 10,000 UNIT/ML VIAL IV SCH (15:30)
[2018-04-17] MEDS ORDERED: ALBUMIN HUMAN 25% 50 ML IV SCH (16:00)
[2018-04-17] MEDS: ACETAMINOPHEN 500 MG TAB PO PRN ×2 (16:04→21:51)
[2018-04-17] MEDS: NA CHLORIDE 0.9% 1,000 ML IV SCH (16:04)
--- NOTE | 2018-04-17 17:33 | P.HP ---
Certification for Inpatient Patient admitted to: Observation With expected LOS: <2 Midnights Patient will require the following post-hospital care: None Practitioner: I am a practitioner with admitting privileges, knowledge of patient current condition, hospital course, and medical plan of care. Services: Services provided to patient in accordance with Admission requirements found in Title 42 Section 412.3 of the Code of Federal Regulations Patient History Date of Service: 04/18/18 History of Present Illness: Ms Graham is an 86 years old woman with history of DM II, ESRD on HD, chronic anemia, HTN, renal stenosis, presented to the ED complaining of having shortness of breath and generalized weakness for past couple of days. Patient has had similar episodes in the past and has been admitted to the hospital for a anemia which is most likely chronic in nature secondary to her end-stage renal disease. Patient does get her lab work done in the nephrology clinic every 2 weeks her last hemoglobin was 9.4. Patient was sent over to the hospital by nephrology for blood transfusion as her hemoglobin was found to be lower than that at this time. Allergies ciprofloxacin Allergy (Verified 07/22/17 22:57) Rash fexofenadine Allergy (Verified 07/22/17 22:57) Rash gatifloxacin Allergy (Verified 07/22/17 22:57) Hives/Rash Penicillins Allergy (Verified 07/22/17 22:57) Hives/Rash pentazocine [From Talwin] Allergy (Verified 07/22/17 22:57) Unknown Home Medications: Acetaminophen [Tylenol Extra Strength] 500 mg PO Q4H PRN 04/17/18 Aspirin 81 mg PO DAILY 04/17/18 Atorvastatin Calcium [Lipitor] 80 mg PO BEDTIME 04/17/18 Calcium Carbonate [Tums Regular*] 500 mg PO BID 04/17/18 Cholecalciferol (Vitamin D3) [Vitamin D3] 1 cap PO BEDTIME 04/17/18 Clonidine HCl [Catapres] 0.5 tab PO BID 04/17/18 Clopidogrel Bisulfate [Plavix*] 75 mg PO DAILY 04/17/18 Codeine/APAP [Tylenol #3*] 1 tab PO Q4H PRN 04/17/18 Docusate [Colace Cap*] 100 mg PO BID 04/17/18 Doxazosin Mesylate 8 mg PO BID 04/17/18 Folic Acid/Vit B Complex and C [Dialyvite 800 Chewable Wafer] 1 tab PO BEDTIME 04/17/18 Hydralazine HCl [Apresoline] 100 mg PO BID 04/17/18 Isosorbide Mononitrate [Isosorbide Mononitrate ER] 3 tab PO DAILY 04/17/18 Melatonin 5 mg PO BEDTIME PRN PRN 04/17/18 Nifedipine [Nifedipine ER] 90 mg PO BID 04/17/18 Ramipril [Altace] 10 mg PO BEDTIME 04/17/18 Sertraline [Zoloft*] 50 mg PO BEDTIME 04/17/18 - Past Medical/Surgical History Has patient received pneumonia vaccine in the past: Yes Diabetic: Yes -: DEPRESSION -: CHRONIC KIDNEY DISEASE ON HD -: CAD -: MALIGNANT HYPERTENSION -: HYPERLIPIDEMIA -: AORTIC STENOSIS -: RENAL ARTERY STENOSIS -: DM -: CHF -: ESRD -: STENT PLACEMENT -: gall bladder removed -: R kidney stent placement -: cataract bilateral repair -: left carotid artery repair. -: left AVF -: hysterectomy -: appendectomy - Family History Sister -: Heart disease Brother -: Heart disease, Cancer - Social History Smoking Status: Never smoker Alcohol use: No CD- Drugs: No Caffeine use: Yes Place of Residence: Home Review of Systems 10-point ROS is otherwise unremarkable Physical Examination - Vital Signs Temperature: 99.3 F Blood Pressure: 142/54 Pulse: 82 Respirations: 16 Pulse Ox (%): 98 - Physical Exam General: Alert, In no apparent distress HEENT: Atraumatic, PERRLA, Mucous membr. moist/pink, EOMI, Sclerae nonicteric Neck: Supple, 2+ carotid pulse no bruit, No LAD, Without JVD or thyroid abnormality Respiratory: Clear to auscultation bilaterally, Normal air movement Cardiovascular: Regular rate/rhythm, Normal S1 S2 Gastrointestinal: Normal bowel sounds, No tenderness Musculoskeletal: No tenderness Integumentary: No rashes Neurological: Normal gait, Normal speech, Normal strength at 5/5 x4 extr, Normal tone, Normal affect Lymphatics: No axilla or inguinal lymphadenopathy - Studies Laboratory Data (last 24 hrs) 04/17/18 11:40: Sodium 134 L, Potassium 3.4 L, BUN 44 H, Creatinine 4.93 H, Glucose 155 H, Total Bilirubin 0.4, AST 50 H, ALT 33, Alkaline Phosphatase 76 01/28/19 11:40: WBC 6.2, Hgb 5.5 L*, Hct 16.4 L*, Plt Count 168 Assessment and Plan - Problems (Diagnosis) (1) Anemia in ESRD (end-stage renal disease) Status: Chronic Plan: Anemia of chronic disease. Patient denies having him maintain emesis or melena at this time. -hemoglobin initially was less than 7. Transfuse 2 units. Observe for 24 hrs -hematology and GI was called over the phone who recommended outpatient followup given the chronic nature of her disease. (2) Depressive disorder Onset Date: 02/11/15 Status: Chronic (3) Dyslipidemia Onset Date: 02/11/15 Status: Chronic (4) ESRD on hemodialysis Onset Date: 02/11/15 Status: Chronic (5) HTN (hypertension) Status: Chronic Qualifiers: Hypertension type: essential hypertension Qualified Code(s): I10 - Essential (primary) hypertension (6) Shingles rash Status: Chronic Discharge Plan: Home Plan to discharge in: 48 Hours - Advance Directives Does patient have a Living Will: No Does patient have a Durable POA for Healthcare: No - Code Status/Comfort Care Code Status Assessed: Yes Critical Care: No
[2018-04-18] MEDS: NA CHLORIDE 0.9% 1,000 ML IV SCH ×3 (00:14→11:14)
[2018-04-18] MEDS: ACETAMINOPHEN 500 MG TAB PO PRN (01:28)
[2018-04-18] MEDS ORDERED: HYDRALAZINE HCL 20 MG/ML VIAL IV ONE (02:13)
[2018-04-18] MEDS: CLONIDINE HCL 0.3 MG TAB PO SCH ×2 (02:47→09:00)
[2018-04-18 03:04] LABS: Absolute Lymphocytes (CBC) 0.9 K/uL (0.7-4.9); Absolute Monocytes 0.4 K/uL (0.1-1.3); Absolute Neutrophil 4.4 K/uL (1.8-8.0); Basophils % 0.4 % (0-1.3); Eosinophils % 1.7 % (0-4.4); Hematocrit 24.9 % (36.0-45.0); Lymphocytes % 15.7 % (15.3-44.8); Monocytes % 7.3 % (3.3-12.3)
[2018-04-18 03:34] LABS: Albumin 2.8 g/dL (3.4-5.0); Bilirubin Total 0.5 mg/dL (0.2-1.0); Potassium 3.3 mmol/L (3.5-5.1); Protein, Total 6.3 g/dL (6.4-8.2)
[2018-04-18] MEDS: HYDRALAZINE HCL 25 MG TABLET PO SCH ×2 (05:59→11:21)
[2018-04-18 09:56] LABS: Hematocrit 23.7 % (36.0-45.0)
[2018-04-18 15:42] VITALS: BP 142/54; TEMP 99.3
--- NOTE | 2018-04-18 15:43 | P.SSS ---
Patient History Date of Service: 04/18/18 History of Present Illness: Ms Graham is an 86 years old woman with history of DM II, ESRD on HD, chronic anemia, HTN, renal stenosis, presented to the ED complaining of having shortness of breath and generalized weakness for past couple of days. Patient has had similar episodes in the past and has been admitted to the hospital for a anemia which is most likely chronic in nature secondary to her end-stage renal disease. Patient does get her lab work done in the nephrology clinic every 2 weeks her last hemoglobin was 9.4. Patient was sent over to the hospital by nephrology for blood transfusion as her hemoglobin was found to be lower than that at this time. Allergies ciprofloxacin Allergy (Verified 07/22/17 22:57) Rash fexofenadine Allergy (Verified 07/22/17 22:57) Rash gatifloxacin Allergy (Verified 07/22/17 22:57) Hives/Rash Penicillins Allergy (Verified 07/22/17 22:57) Hives/Rash pentazocine [From Silvan[place]] Allergy (Verified 07/22/17 22:57) Unknown Home Medications: Acetaminophen [Tylenol Extra Strength] 500 mg PO Q4H PRN 04/17/18 Aspirin 81 mg PO DAILY 04/17/18 Atorvastatin Calcium [Lipitor] 80 mg PO BEDTIME 04/17/18 Calcium Carbonate [Tums Regular*] 500 mg PO BID 04/17/18 Cholecalciferol (Vitamin D3) [Vitamin D3] 1 cap PO BEDTIME 04/17/18 Clonidine HCl [Catapres] 0.5 tab PO BID 04/17/18 Clopidogrel Bisulfate [Plavix*] 75 mg PO DAILY 04/17/18 Codeine/APAP [Tylenol #3*] 1 tab PO Q4H PRN 04/17/18 Docusate [Colace Cap*] 100 mg PO BID 04/17/18 Doxazosin Mesylate 8 mg PO BID 04/17/18 Folic Acid/Vit B Complex and C [Dialyvite 800 Chewable Wafer] 1 tab PO BEDTIME 04/17/18 Hydralazine HCl [Apresoline] 100 mg PO BID 04/17/18 Isosorbide Mononitrate [Isosorbide Mononitrate ER] 3 tab PO DAILY 04/17/18 Melatonin 5 mg PO BEDTIME PRN PRN 04/17/18 Nifedipine [Nifedipine ER] 90 mg PO BID 04/17/18 Ramipril [Altace] 10 mg PO BEDTIME 04/17/18 Sertraline [Zoloft*] 50 mg PO BEDTIME 04/17/18 - Past Medical/Surgical History Has patient received pneumonia vaccine in the past: Yes Diabetic: Yes -: DEPRESSION -: CHRONIC KIDNEY DISEASE ON HD -: CAD -: MALIGNANT HYPERTENSION -: HYPERLIPIDEMIA -: AORTIC STENOSIS -: RENAL ARTERY STENOSIS -: DM -: CHF -: ESRD -: STENT PLACEMENT -: gall bladder removed -: R kidney stent placement -: cataract bilateral repair -: left carotid artery repair. -: left AVF -: hysterectomy -: appendectomy - Family History Sister -: Heart disease Brother -: Heart disease, Cancer - Social History Smoking Status: Never smoker Alcohol use: No CD- Drugs: No Caffeine use: Yes Place of Residence: Home Review of Systems 10-point ROS is otherwise unremarkable Physical Examination - Vital Signs Temperature: 99.3 F Blood Pressure: 142/54 Pulse: 82 Respirations: 16 Pulse Ox (%): 98 - Physical Exam General: Alert, In no apparent distress HEENT: Atraumatic, PERRLA, Mucous membr. moist/pink, EOMI, Sclerae nonicteric Neck: Supple, 2+ carotid pulse no bruit, No LAD, Without JVD or thyroid abnormality Respiratory: Clear to auscultation bilaterally, Normal air movement Cardiovascular: Regular rate/rhythm, Normal S1 S2 Gastrointestinal: Normal bowel sounds, No tenderness Musculoskeletal: No tenderness Integumentary: No rashes Neurological: Normal gait, Normal speech, Normal strength at 5/5 x4 extr, Normal tone, Normal affect Lymphatics: No axilla or inguinal lymphadenopathy - Diagnosis (Problem(s)) (1) Anemia in ESRD (end-stage renal disease) Status: Chronic Plan: Anemia of chronic disease. Patient denies having him maintain emesis or melena at this time. -hemoglobin initially was less than 7. Transfuse 2 units. Hgb upto 8 now -hematology and GI was called over the phone who recommended outpatient followup given the chronic nature of her disease. -patient was asked to follow up with GI and Hematology in about 1-2 days post discharge (2) Depressive disorder Onset Date: 02/11/15 Status: Chronic (3) Dyslipidemia Onset Date: 02/11/15 Status: Chronic (4) ESRD on hemodialysis Onset Date: 02/11/15 Status: Chronic (5) HTN (hypertension) Status: Chronic Qualifiers: Hypertension type: essential hypertension Qualified Code(s): I10 - Essential (primary) hypertension (6) Shingles rash Status: Chronic Treatment Summary: Overall during the hospital stay patient remained stable Will be discharged home today after getting blood transfusion. Anemia most likely secondary to chronic disease however will need to get outpatient workup for GI bleed. No melena or hematemesis noted here. Stool occult negative here in the hospital. - Disposition Disposition: ROUTINE DISCHARGE Condition: GOOD Diet: Regular Activity: Ad nayeli
--- NOTE | 2018-04-18 18:04 | CON ---
Date of Consultation: 04/17/2018 Requesting Provider: Dr. Ashanti Charles. Reason For Consultation: End-stage renal disease. History Of Present Illness: Ms. Graham is an 87-year-old female with a history of hypertension; end -stage renal disease, who has been on dialysis since the later part of 2014 and dialyzes on a Tuesday, Tuesday, Tuesday schedule, now at [facility]. She was admitted to the hospital with anem ia. On the morning of admission, lab results were returned in the outpatient setting, which had reve aled a very low hemoglobin in the less than 6 range and the patient was referred to the emergency [facility]. The patient now has hemoglobin of 5.5. The patient is seen in the emergency room holding area. She is accompanied by her daughter, and at t his time, the patient denies any history of GI bleeding nor other sources of bleeding. The patient's anemia has been monitored in the outpatient setting at the dialysis unit. Clearly, the patient feels fatigued. Denies any fevers, chills, chest pain, shortness of breath, [place], vomiting, or diarrhea. Past Medical History: As per HPI. Family History: Noncontributory. Physical Examination: Vital Signs: Blood pressure 140/58, pulse 81, afebrile. GENERAL: No acute distress. Heart: Regular rate and rhythm. No murmurs, rubs, gallops. Lungs: Clear to auscultation bilaterally. Abdomen: Soft, nontender, nondistended. Positive bowel sounds x4. Extremities: No significant edema. Laboratory Data: WBC 6.2, hemoglobin 5.5, hematocrit 16.4, platelet count 168. Serum chemistry; sod ium 134, potassium 3.4, chloride 98, CO2 of 27, BUN 44, creatinine 4.93, glucose 155, calcium 8. AST mildly elevated at 50. Albumin is 3. Impression: 1.End-stage renal disease, on hemodialysis. 2.Anemia of unclear etiology. 3.Hypertension. 4.Fatigue related to anemia. Plan: Ms. Graham will have dialysis today. She will receive 2 units of PRBCs with treatment. The patient will need an anemia workup. Please rule out GI bleed. Consider Hematology evaluation if pos sible as the patient's hemoglobin on March 22 was 9.5. SE/MODL Voice ID: [id number] Report ID: [id number]
== END 2018-04-18 14:39 | disposition home or self-care (01) ==
LOC: ER 09:57 → ERHOLD 14:15 → 4TH 14:49
PROVIDERS: ADMIT Family Medicine; ATTEND Family Medicine
DX: I13.2 Hypertensive heart and chronic kidney disease with heart failure and with stage 5 chronic kidney disease, or end stage renal disease (principal); E11.22 Type 2 diabetes mellitus with diabetic chronic kidney disease; N18.6 End stage renal disease; I50.9 Heart failure, unspecified; D63.1 Anemia in chronic kidney disease; I25.10 Atherosclerotic heart disease of native coronary artery without angina pectoris; E78.5 Hyperlipidemia, unspecified; B02.9 Zoster without complications; F32.9 Major depressive disorder, single episode, unspecified; Z99.2 Dependence on renal dialysis; Z88.0 Allergy status to penicillin
CPT/HCPCS: 36415; 36430; 80053 ×2; 85014; 85018; 85025 ×2; 86850; 86900; 86901; 90935; 99285; J0360; J7030 ×2; P9016 ×2

== ENCOUNTER 2019-01-16 09:41 | Inpatient (IN) | payer OTHER ==
[2019-01-16 11:06] LABS: Absolute Lymphocytes (CBC) 0.9 K/uL (0.7-4.9); Basophils % 0.5 % (0-1.3); Hematocrit 27.5 % (36.0-45.0); Lymphocytes % 14.6 % (15.3-44.8); MPV 8.4 fL (7.6-11.3); Protime INR 1.05; RBC Red Blood Cell Count 2.94 M/uL (3.86-4.86)
--- NOTE | 2019-01-16 11:15 | RAD REPORT ---
EXAM DESCRIPTION: RAD - Chest Single View - 01/16/2019 11:09 am CLINICAL HISTORY: SOB Chest pain. COMPARISON: Chest Single View dated 02/23/2018; Chest Single View dated 12/09/2017; Chest Single View dated 11/25/2017; Chest Single View dated 07/22/2017 FINDINGS: Portable technique limits examination quality. Severe pulmonary edema seen. Moderate cardiomegaly. No displaced fractures.
[2019-01-16 11:19] LABS: ALT/SGPT 34 U/L (12-78); AST/SGOT 43 U/L (15-37); Albumin 3.1 g/dL (3.4-5.0); Alkaline Phosphatase 99 U/L (45-117); BUN Blood Urea Nitrogen 38 mg/dL (7-18); Bicarbonate 32 mmol/L (21-32); Bilirubin Direct 0.2 mg/dL (0-0.2); Bilirubin Total 0.5 mg/dL (0.2-1.0); Glucose Level 87 mg/dL (74-106); Magnesium 2.4 mg/dL (1.8-2.4); NT PRO-BNP 22553 pg/mL (<450); Potassium 4.4 mmol/L (3.5-5.1); Protein, Total 7.8 g/dL (6.4-8.2); Sodium Level 134 mmol/L (136-145); Troponin (Emerg Dept Use Only) < 0.02 ng/mL (0.0-0.045)
[2019-01-16] MEDS ORDERED: FUROSEMIDE 100 MG/10 ML VIAL IV ONE (12:08)
--- NOTE | 2019-01-16 12:37 | EKG ---
Test Date: 2019-01-16 Test Time: 10:26:44 Spike Maker: KENTRELL MEASUREMENT RESULTS: Intervals: Rate: 82 ME: 220 QRSD: 86 QT: 384 QTc: 448 Roscoe: P: 78 ME: 220 QRS: 35 T: 24 INTERPRETIVE STATEMENTS: Sinus rhythm with 1st degree AV block with premature atrial complexes Anteroseptal infarct, age undetermined Abnormal ECG Compared to ECG 02/23/2018 09:24:22 First degree AV block now present Left-axis deviation no longer present Myocardial infarct finding still present Electronically Signed On 01-16-19 12:36:23 CDT by Juan Pablo Leroy
--- NOTE | 2019-01-16 12:44 | ER ---
Nurse's Notes [facility] Name: Erendira Graham Age: 88 yrs Sex: Female : 1930 Arrival Date: 01/16/2019 Time: 09:43 Bed 16 Private MD: Diagnosis: Acute pulmonary edema;Shortness of breath;End stage renal disease Presentation: 01/16 10:02 Presenting complaint: Patient states: SOB that began yesterday, but is worse today. ss Daughter states, "it seems like they took off a lot of fluid during dialysis yesterday.". Transition of care: patient was not received from another setting of care. Onset of symptoms was January 14, 2019. Risk Assessment: Do you want to hurt yourself or someone else? Patient reports no desire to harm self or others. Initial Sepsis Screen: Does the patient meet any 2 criteria? No. Patient's initial sepsis screen is negative. Does the patient have a suspected source of infection? No. Patient's initial sepsis screen is negative. Care prior to arrival: None. 10:02 Method Of Arrival: Wheelchair ss 10:02 Acuity: KEKE 2 ss Triage Assessment: 11:10 Respiratory: Onset: The symptoms/episode began/occurred yesterday, the patient has mild rb1 shortness of breath. Historical: - Allergies: 10:06 Karlene; ss 10:06 Bactrim; ss 10:06 Ciprofloxacin; ss 10:06 Demerol; ss 10:06 PENICILLINS; ss 10:06 Talwin; ss 10:06 tequin; ss - PMHx: 10:06 CHF; Diabetes - NIDDM; Dialysis; ESRD; Hypertension; ss - PSHx: 10:06 Cholecystectomy; L arm fistula; Carotid surgery; Kidney stents; ss - Immunization history:: Adult Immunizations up to date. - Social history:: Smoking status: Patient/guardian denies using tobacco. - Ebola Screening: : Patient denies exposure to infectious person Patient denies travel to an Ebola-affected area in the 21 days before illness onset. Screenin:07 Abuse screen: Denies threats or abuse. Denies injuries from another. Nutritional sv screening: No deficits noted. Tuberculosis screening: No symptoms or risk factors identified. Fall Risk None identified. Assessment: 10:15 General: Appears in no apparent distress. comfortable, Behavior is calm, cooperative. sv Pain: Denies pain. Neuro: Level of Consciousness is awake, alert, obeys commands, Oriented to person, place, time, situation, Gait is steady, Speech is normal. Cardiovascular: Dialysis shunt: in the left arm. Respiratory: Airway is patent Respiratory effort is even, unlabored, Respiratory pattern is regular, symmetrical. Derm: Skin is pink, warm \\T\\ dry. 11:10 General: Appears in no apparent distress. comfortable, Behavior is calm, cooperative. rb1 Pain: Denies pain. Neuro: Level of Consciousness is awake, alert, obeys commands, Oriented to person, place, time, situation. Cardiovascular: Rhythm is regular. Respiratory: Reports shortness of breath Airway is patent Respiratory effort is even, unlabored, Respiratory pattern is regular, symmetrical. GI: No signs and/or symptoms were reported involving the gastrointestinal system. : No signs and/or symptoms were reported regarding the genitourinary system. Derm: Skin is dry, Skin is normal, Skin temperature is warm. 12:10 Reassessment: Patient appears in no apparent distress at this time. No changes from rb1 previously documented assessment. 13:09 Reassessment: Patient appears in no apparent distress at this time. Patient and/or rb1 family updated on plan of care and expected duration. Pain level reassessed. Patient is alert, oriented x 3, equal unlabored respirations, skin warm/dry/pink. 14:08 Reassessment: Patient appears in no apparent distress at this time. No changes from rb1 previously documented assessment. Family at bedside. 15:00 Reassessment: Patient appears in no apparent distress at this time. Patient and/or rb1 family updated on plan of care and expected duration. Pain level reassessed. Patient is alert, oriented x 3, equal unlabored respirations, skin warm/dry/pink. 15:25 Reassessment: Dr. Lucas is at pt. bedside. rb1 15:40 Reassessment: Gave report to JONH Márquez. Information from the SBAR was given. All rb1 questions asked and answered. 15:52 Reassessment: Patient appears in no apparent distress at this time. No changes from rb1 previously documented assessment. Vital Signs: 10:01 BP 186 / 52; Pulse 76; Resp 19; Temp 98.6; Pulse Ox 89% on R/A; Weight 70.31 kg; Height ss 5 ft. 5 in. (165.10 cm); 11:16 BP 203 / 83; Pulse 79; Resp 18; Pulse Ox 98% on 2 lpm NC; mh5 12:11 BP 192 / 70; Pulse 81; Resp 19; Pulse Ox 99% on 2 lpm NC; rb1 12:25 BP 192 / 65; Pulse 80; Resp 22; Pulse Ox 98% on 2 lpm NC; rb1 13:13 BP 199 / 84; Pulse 79; Resp 22; Temp 98.5(TE); Pulse Ox 99% ; mh5 14:58 BP 197 / 57; Pulse 72; Resp 19; Temp 98.1(TE); Pulse Ox 99% 2 lpm ; mh5 15:27 BP 185 / 71; Pulse 79; Resp 19; Temp 98.6(O); Pulse Ox 99% on R/A; rb1 10:01 Body Mass Index 25.79 (70.31 kg, 165.10 cm) ED Course: 09:43 Patient arrived in ED. rg4 10:01 Arm band placed on right wrist. ss 10:04 Triage completed. ss 10:07 Patient has correct armband on for positive identification. Bed in low position. Call sv light in reach. Adult w/ patient. Door closed. Head of bed elevated. 10:09 Carl Hugo NP is PHCP. pm1 10:09 Jung Morrow MD is Attending Physician. pm1 10:13 Arti Del Toro, JONH is Primary Nurse. sv 10:14 Nurse Practitioner and/or Physician Microfilm Mounter to see patient. sv 10:20 Missed attempt(s): 22 gauge in right forearm. Bleeding controlled, band aid applied, sv catheter tip intact. 10:25 Inserted saline lock: 24 gauge in right forearm, using aseptic technique. ,using sv aseptic technique. diffusics Blood collected. Flushed right forearm with 2 ml normal saline. 10:41 Warm blanket given. mh5 10:58 X-ray(s) taken. sv 11:09 XRAY Chest (1 view) In Process Unspecified. EDMS 11:17 Warm blanket given. Pillow given. mh5 12:42 Ashanti Charles MD is Hospitalizing Provider. pm1 13:40 Hospitalizing Provider role handed off by Ashanti Charles MD pm1 13:40 Noel Lucas MD is Hospitalizing Provider. pm1 15:53 No provider procedures requiring assistance completed. Patient admitted, IV remains in rb1 place. Administered Medications: 12:11 Drug: Lasix 100 mg Route: IVP; Site: right forearm; rb1 Output: 12:53 Urine: 50ml (Voided); Total: 50ml. rb1 Outcome: 12:43 Decision to Hospitalize by Provider. pm1 15:53 Admitted to Med/surg accompanied by tech, family with patient, via stretcher, room 431, rb1 with oxygen, with chart, Report called to JONH Márquez 15:53 Condition: stable 15:53 Instructed on the need for admit. 15:56 Patient left the ED. rb1 Signatures: Dispatcher [employer] EDMS Arti Del Toro RN RN Mayela Whipple RN RN ss Sydnie Daniel RN RN rb1 Carl Hugo, DEV BATH HOUSE ATTENDANT pm1 Boo, Tiffany rg4 Zak, Lara [facility] Corrections: (The following items were deleted from the chart) 13:29 12:11 BP 192 / 70; Pulse 81bpm; Resp 19bpm; Pulse Ox 99% RA; rb1 rb1 15:41 15:27 BP 185 / 71; Pulse 79bpm; Resp 19bpm; Pulse Ox 99% RA; rb1 rb1
--- NOTE | 2019-01-16 12:45 | EDPHYS ---
Physician Documentation [facility] Name: Erendira Graham Age: 88 yrs Sex: Female : 1930 Arrival Date: 01/16/2019 Time: 09:43 Bed 16 Private MD: ED Physician Jung Morrow HPI: 01/16 10:18 This 88 yrs old Black Female presents to ER via Wheelchair with complaints of Shortness pm1 Of Breath. 10:18 The patient has shortness of breath at rest. Onset: The symptoms/episode began/occurred pm1 yesterday, while having dialysis. But resolved yesterday. shortness of breath returned when she woke up this AM. Duration: The symptoms are continuous. The patient's shortness of breath is alleviated by application of supplemental oxygen, in ER. Associated signs and symptoms: Pertinent negatives: chest pain, non-productive cough, productive cough, fever. Severity of symptoms: in the emergency department the symptoms are worse. Historical: - Allergies: 10:06 Karlene; ss 10:06 Bactrim; ss 10:06 Ciprofloxacin; ss 10:06 Demerol; ss 10:06 PENICILLINS; ss 10:06 Talwin; ss 10:06 tequin; ss - PMHx: 10:06 CHF; Diabetes - NIDDM; Dialysis; ESRD; Hypertension; ss - PSHx: 10:06 Cholecystectomy; L arm fistula; Carotid surgery; Kidney stents; ss - Immunization history:: Adult Immunizations up to date. - Social history:: Smoking status: Patient/guardian denies using tobacco. - Ebola Screening: : Patient denies exposure to infectious person Patient denies travel to an Ebola-affected area in the 21 days before illness onset. ROS: 10:18 Constitutional: Negative for fever, chills, and weight loss, Eyes: Negative for injury, pm1 pain, redness, and discharge, ENT: Negative for injury, pain, and discharge, Neck: Negative for injury, pain, and swelling, Cardiovascular: Negative for chest pain, palpitations, and edema, Abdomen/GI: Negative for abdominal pain, nausea, vomiting, diarrhea, and constipation. 10:18 Back: Negative for injury and pain, MS/Extremity: Negative for injury and deformity, Skin: Negative for injury, rash, and discoloration, Neuro: Negative for headache, weakness, numbness, tingling, and seizure. 10:18 Respiratory: Positive for shortness of breath, Negative for cough, wheezing. Exam: 10:18 Constitutional: This is a well developed, well nourished patient who is awake, alert, pm1 and in no acute distress. Head/Face: Normocephalic, atraumatic. Neck: Trachea midline, no thyromegaly or masses palpated, and no cervical lymphadenopathy. Supple, full range of motion without nuchal rigidity, or vertebral point tenderness. No Meningismus. Chest/axilla: Normal chest wall appearance and motion. Nontender with no deformity. No lesions are appreciated. Cardiovascular: Regular rate and rhythm with a normal S1 and S2. No gallops, murmurs, or rubs. Normal PMI, no JVD. No pulse deficits. Abdomen/GI: Soft, non-tender, with normal bowel sounds. No distension or tympany. No guarding or rebound. No evidence of tenderness throughout. 10:18 Back: No spinal tenderness. No costovertebral tenderness. Full range of motion. Skin: Warm, dry with normal turgor. Normal color with no rashes, no lesions, and no evidence of cellulitis. MS/ Extremity: Pulses equal, no cyanosis. Neurovascular intact. Full, normal range of motion. 10:18 Respiratory: the patient does not display signs of respiratory distress, Respirations: normal, Breath sounds: decreased breath sounds, are located in both bases. 10:18 Neuro: Orientation: is normal, Motor: is normal, moves all fours. Vital Signs: 10:01 BP 186 / 52; Pulse 76; Resp 19; Temp 98.6; Pulse Ox 89% on R/A; Weight 70.31 kg; Height ss 5 ft. 5 in. (165.10 cm); 11:16 BP 203 / 83; Pulse 79; Resp 18; Pulse Ox 98% on 2 lpm NC; mh5 12:11 BP 192 / 70; Pulse 81; Resp 19; Pulse Ox 99% on 2 lpm NC; rb1 12:25 BP 192 / 65; Pulse 80; Resp 22; Pulse Ox 98% on 2 lpm NC; rb1 13:13 BP 199 / 84; Pulse 79; Resp 22; Temp 98.5(TE); Pulse Ox 99% ; mh5 14:58 BP 197 / 57; Pulse 72; Resp 19; Temp 98.1(TE); Pulse Ox 99% 2 lpm ; mh5 15:27 BP 185 / 71; Pulse 79; Resp 19; Temp 98.6(O); Pulse Ox 99% on R/A; rb1 10:01 Body Mass Index 25.79 (70.31 kg, 165.10 cm) ss MDM: 10:10 Patient medically screened. pm1 12:41 Data reviewed: vital signs. Data interpreted: Pulse oximetry: on room air is 99 %. pm1 Interpretation: normal. Counseling: I had a detailed discussion with the patient and/or guardian regarding: the historical points, exam findings, and any diagnostic results supporting the discharge/admit diagnosis, lab results, radiology results, the need for further work-up and treatment in the hospital. 13:10 Physician consultation: Lolly Gonzales MD was contacted at 13:06, regarding consult, pm1 patient's condition, would like admission per Dr. Noel Lucas MD. 01/16 10:18 Order name: NT PRO-BNP; Complete Time: 11:42 pm1 01/16 10:18 Order name: Basic Metabolic Panel; Complete Time: 11:42 pm1 01/16 10:18 Order name: CBC with Diff; Complete Time: 11:14 pm1 01/16 10:18 Order name: LFT's; Complete Time: 11:42 pm1 01/16 10:18 Order name: Magnesium; Complete Time: 11:42 pm1 01/16 10:18 Order name: PT-INR; Complete Time: 11:22 pm1 01/16 10:18 Order name: Troponin (emerg Dept Use Only); Complete Time: 11:42 pm1 01/16 10:18 Order name: XRAY Chest (1 view); Complete Time: 11:42 pm1 01/16 10:18 Order name: EKG; Complete Time: 10:19 pm1 01/16 10:18 Order name: Cardiac monitoring; Complete Time: 10:54 pm1 01/16 10:18 Order name: EKG - Nurse/Tech; Complete Time: 10:55 pm1 01/16 10:18 Order name: IV Saline Lock; Complete Time: 10:55 pm1 01/16 10:18 Order name: Flu; Complete Time: 11:14 pm1 01/16 10:18 Order name: Labs collected and sent; Complete Time: 10:55 pm1 01/16 10:18 Order name: O2 Per Protocol; Complete Time: 10:55 pm1 01/16 10:18 Order name: O2 Sat Monitoring; Complete Time: 10:55 pm1 Administered Medications: 12:11 Drug: Lasix 100 mg Route: IVP; Site: right forearm; rb1 Disposition: 01/17 06:59 Co-signature as Attending Physician, Jung Morrow MD I agree with the assessment and madisyn plan of care. Disposition: 01/16/19 12:43 Hospitalization ordered by Noel Lucas for Observation. Preliminary diagnosis are Acute pulmonary edema, Shortness of breath, End stage renal disease. - Bed requested for Telemetry/MedSurg (observation). - Status is Observation. rb1 - Condition is Stable. - Problem is new. - Symptoms have improved. UTI on Admission? No Signatures: Dispatcher [employer] EDMS Mohini Jc Corey, MD MD cha Smirch, Shelby, RN RN ss Sydnie Daniel RN RN rb1 Carl Hugo, DEV PRECISION LENS GENERATOR pm1 Corrections: (The following items were deleted from the chart) 01/16 13:40 12:43 Hospitalization Ordered by Ashanti Charles MD for Observation. Preliminary pm1 diagnosis is Acute pulmonary edema; Shortness of breath; End stage renal disease. Bed requested for Telemetry/MedSurg (observation). Status is Observation. Condition is Stable. Problem is new. Symptoms have improved. UTI on Admission? No. pm1 15:20 13:40 01/16/2019 12:43 Hospitalization Ordered by Noel Lucas MD for Observation. bd Preliminary diagnosis is Acute pulmonary edema; Shortness of breath; End stage renal disease. Bed requested for Telemetry/MedSurg (observation). Status is Observation. Condition is Stable. Problem is new. Symptoms have improved. UTI on Admission? No. pm1 15:56 15:20 01/16/2019 12:43 Hospitalization Ordered by Noel Lucas MD for Observation. rb1 Preliminary diagnosis is Acute pulmonary edema; Shortness of breath; End stage renal disease. Bed requested for Telemetry/MedSurg (observation). Status is Observation. Condition is Stable. Problem is new. Symptoms have improved. UTI on Admission? No. bd
[2019-01-16] MEDS ORDERED: ONDANSETRON 4 MG/2 ML VIAL IV PRN (15:35)
[2019-01-16] MEDS ORDERED: TRAMADOL HCL 50 MG TAB PO ONE (16:00)
[2019-01-16] MEDS: INSULIN -REGULAR HUMAN 50 UNIT/0.5 ML ML SQ SCH ×2 (16:30→20:51)
[2019-01-16] MEDS: ENOXAPARIN 30 MG/0.3 ML SQ SCH (16:54)
[2019-01-16] MEDS ORDERED: HYDRALAZINE HCL 20 MG/ML VIAL IV ONE (17:30)
[2019-01-16] MEDS: ACETAMINOPHEN 500 MG TAB PO PRN ×2 (18:30→22:08)
[2019-01-16] MEDS: DOXAZOSIN 4 MG TAB PO SCH (20:51)
[2019-01-16] MEDS: RAMIPRIL 5 MG CAP PO SCH (20:51)
[2019-01-16] MEDS: DOCUSATE NA 100 MG CAP PO SCH (20:52)
[2019-01-16] MEDS: ATORVASTATIN 40 MG TAB PO SCH (20:52)
[2019-01-16] MEDS: CALCIUM CARBONATE CHEW 500MG TAB PO SCH (20:52)
[2019-01-16] MEDS: VANCOMYCIN 750 MG in NA CHLORIDE 0.9% 150 ML IVPB ONE ×2 (20:53→22:07)
[2019-01-16] MEDS: SERTRALINE HCL 50 MG TAB PO SCH (20:57)
[2019-01-16] MEDS ORDERED: DOXAZOSIN MESYLATE 8 MG PO SCH (21:00)
[2019-01-16] MEDS ORDERED: HOME MED 1 EA UNK (Nifedipine [Nifedipine Er] 90 MG) PO SCH (21:00)
[2019-01-16] MEDS ORDERED: HOME MED 1 EA UNK (Ramipril [Altace] 10 MG) PO SCH (21:00)
[2019-01-16] MEDS: MELATONIN 5 MG TABLET PO PRN (21:02)
[2019-01-16] MEDS: NIFEDIPINE XL 90 MG TABLET PO SCH (22:06)
[2019-01-16] MEDS ORDERED: VANCOMYCIN/NS 1 gm 1 GM/250 ML BAG IVPB ONE (22:15)
[2019-01-16] MEDS ORDERED: VANCOMYCIN 1 GM/VIAL ONE (23:39)
[2019-01-16] MEDS ORDERED: NA CHLORIDE 0.9% 250 ML ONE (23:39)
[2019-01-17] MEDS ORDERED: HYDRALAZINE HCL 20 MG/ML VIAL IV PRN (00:29)
[2019-01-17] MEDS: TRAMADOL HCL 50 MG TAB PO PRN ×3 (01:25→22:48)
--- NOTE | 2019-01-17 03:35 | HP ---
Date of Admission: 01/16/2019 Primary Care Physician: Out of town in [place]. Consultants: Dr. Gonzales with Nephrology. Code Status: Full. The patient has a living will. Chief Complaint: Shortness of breath. History Of Present Illness: The patient is an 88-year-old female with past medical history of end-st age renal disease, on hemodialysis Tuesday, Tuesday, and Tuesday. Last dialysis session was on the day prior to admission. Patient however, continues to have worsening shortness of breath. She does report some lower extremity edema and worsening symptoms with exertion. No fever, chills. Pat kaye does report some dry cough; however, no ill contacts. No chest pain or palpitations. The patie nt's symptoms are constant and moderate, progressively worsening, therefore patient came into the ER for further evaluation. Her workup revealed a BNP of 20,000, white blood cell count was normal. Tro ponin was also negative. Flu screen was also negative. Her chest x-ray showed severe pulmonary tierney a. The patient was given Lasix and then referred for admission. When seen in the ER, she was awake, alert, oriented x3, in some mild distress. Past Medical History: End-stage renal disease, on hemodialysis; depression; coronary artery disease; hypertension; hyperlipidemia; aortic stenosis; renal artery stenosis; diabetes type 2; faa-[id number]-p equiring congestive heart failure. Surgical History: Stent placement, gallbladder removal, right kidney stent placement, cataract repai r bilaterally, left carotid artery repair, left AV fistula, hysterectomy and appendectomy. Allergies: TO CIPRO, FEXOFENADINE, GATIFLOXACIN, PENICILLIN, PENTAZOCINE. Social History: The patient denies any tobacco use, alcohol use, or illicit drug use. Lives at home . Does need assistance with activities of daily living. Family History: Sister has heart disease. Brother also has heart disease and cancer. Review of Systems: Ten-point system is reviewed negative except as per HPI. Physical Examination: Vital Signs: Blood pressure 186/52, pulse 76, respirations 19, temperature 98.6, O2 89% on room air, improved to 98% on 2 L via nasal cannula. General: Awake, alert, and oriented x3. Elderly female, ill-appearing, in mild distress. HEENT: Normocephalic, atraumatic. PERRLA. EOMI. Moist mucous membranes. Oropharynx is clear. Po or dentition. Conjunctivae anicteric. Neck: Supple. Patient has jugular venous distention. Trachea midline. CV: S1, S2. Regular rate and rhythm. Peripheral pulses weak bilaterally. Respiratory: Diminished breath sounds. Crackles heard. No wheezing or stridor. Patient is tachypn eic. No use of accessory muscles. Gastrointestinal: Abdomen is soft, nontender, nondistended. Positive bowel sounds. No guarding or rigidity. Extremities: No clubbing or cyanosis. Patient has peripheral edema bilaterally. No calf tenderness . Neuro: Cranial nerves 2 through 12 intact grossly. No focal neurological deficit. Speech is normal . Skin: No rashes. Normal skin turgor. Patient has AV fistula on the left with palpable thrill. Psych: Mood is okay. Affect is full. Insight and judgment are good. Laboratory Data: Sodium 134, potassium 4.4, chloride 95, CO2 32, BUN 38, creatinine 5.27, glucose 87 , calcium 8.5, magnesium 2.4, AST 43, ALT 34. Troponin less than 0.02. BNP 20,550. Albumin 3.1. I NR 1.05. WBC 5.9, H and H 9.5 and 27.5, platelets 207, neutrophils 75%. Influenza screen is negativ e. Chest x-ray personally reviewed shows severe pulmonary edema, moderate cardiomegaly. Assessment And Plan: An 88-year-old female with, 1.Shortness of breath, improved with nasal cannula. 2.Acute respiratory failure with hypoxia. Patient is 89% on room air, has severe pulmonary edema. The patient is tachypneic, improved with nasal cannula. 3.Acute pulmonary edema secondary to fluid overload from end-stage renal disease. Patient has been given 100 mg of IV Lasix. Patient still makes urine. We will continue to monitor. Repeat chest x-r ay as clinically indicated. 4.End-stage renal disease, on hemodialysis Tuesday, Tuesday, Tuesday. Last dialysis session was yes terday. We will continue with dialysis. May need to be dialyzed again today. We will discuss furth er with Nephrology, who has been consulted. Dr. Gonzales covering for Dr. Guardado. 5.Malignant hypertension. Blood pressure is elevated to 200 systolic, likely related to above. We will use p.r.n. medications and resume home medications. 6.Coronary artery disease, redding artery, redding heart without angina, stable. 7.Mixed hyperlipidemia, we will continue statin. 8.History of aortic stenosis. 9.Renal artery stenosis, status post stent. 10.Diabetes mellitus type 2 with hyperglycemia and end-stage renal disease. We will start on slidin g scale insulin and monitor blood glucose. Patient is noninsulin dependent. 11.Congestive heart failure, likely diastolic dysfunction, acute on chronic. 12.Major depressive disorder, we will continue SSRI. 13.Carotid artery disease status post CEA. 14.Deep venous thrombosis prophylaxis with Lovenox renally dosed. Plan: Admit patient to Med-Surg, place as inpatient. Length of stay greater than 2 midnights. YADI Voice ID: [id number]
[2019-01-17 04:39] LABS: Absolute Lymphocytes (CBC) 0.7 K/uL (0.7-4.9); Basophils % 0.7 % (0-1.3); Hematocrit 24.5 % (36.0-45.0); MPV 8.2 fL (7.6-11.3); RBC Red Blood Cell Count 2.59 M/uL (3.86-4.86)
[2019-01-17 05:02] LABS: Albumin 2.8 g/dL (3.4-5.0); Bilirubin Total 0.4 mg/dL (0.2-1.0); Magnesium 2.3 mg/dL (1.8-2.4); Potassium 4.5 mmol/L (3.5-5.1); Protein, Total 6.6 g/dL (6.4-8.2)
[2019-01-17] MEDS: HYDROCODONE/APAP 5/325 MG TAB PO PRN ×2 (05:03→11:23)
[2019-01-17] MEDS: HYDRALAZINE HCL 20 MG/ML VIAL IV PRN ×2 (05:22→21:32)
[2019-01-17] MEDS: INSULIN -REGULAR HUMAN 50 UNIT/0.5 ML ML SQ SCH ×4 (07:30→21:00)
[2019-01-17] MEDS: DOXAZOSIN 4 MG TAB PO SCH ×2 (09:00→22:47)
[2019-01-17] MEDS: NIFEDIPINE XL 90 MG TABLET PO SCH ×2 (09:00→22:47)
[2019-01-17] MEDS: HYDRALAZINE HCL 25 MG TABLET PO SCH (09:00)
[2019-01-17] MEDS ORDERED: HOME MED 1 EA UNK (Hydralazine Hcl [Apresoline] 100 MG) PO SCH (09:00)
[2019-01-17] MEDS: ISOSORBIDE MONO SR 30 MG TAB PO SCH (09:00)
[2019-01-17] MEDS ORDERED: HYDRALAZINE HCL 20 MG/ML VIAL IV ONE ×2 (09:21→16:30)
[2019-01-17] MEDS: CLOPIDOGREL 75 MG TABLET PO SCH (09:27)
[2019-01-17] MEDS: CALCIUM CARBONATE CHEW 500MG TAB PO SCH ×2 (09:27→22:47)
[2019-01-17] MEDS: DOCUSATE NA 100 MG CAP PO SCH ×2 (09:27→22:49)
[2019-01-17] MEDS: ASPIRIN 81 MG CHEWABLE TABLET PO SCH (09:27)
--- NOTE | 2019-01-17 10:41 | RAD REPORT ---
EXAM DESCRIPTION: RAD - Lumbar Spine 3 Views - 01/17/2019 10:21 am CLINICAL HISTORY: Back pain COMPARISON: None. FINDINGS: A three-view lumbar spine examination was performed. Lumbar bodies are normal in height an d alignment. No fracture or acute bony process seen. Advanced degenerative change with disc space kalia rowing at L2-3. Mild disc space narrowing at L3-4. No destructive bone process seen. Patient has adva nced mid and lower lumbar facet joint degenerative change. No pars defects identified. Nonaneurysmal aortoiliac calcifications are present. IMPRESSION: Patient has advanced facet joint degenerative change and advanced degenerative change at the L2-3 and L3-4 disc levels. No compression fracture or acute bone process. No radiographic findings for discitis or osteomyelitis.
--- NOTE | 2019-01-17 11:50 | CON ---
Date of Consultation: 01/16/2019 Requesting Provider: Noel Lucas MD Reason For Consultation: End-stage renal disease. History Of Present Illness: Ms. Graham is an 88-year-old female who dialyzes on a Tuesday, Tuesday , Tuesday schedule for end-stage renal disease in the background setting of hypertension and diabetes. Ms. Graham had her dialysis yesterday. However today, the patient had acute shortness of breath, presented here to the hospital, was found to have pulmonary edema. She has been supported with suppl emental oxygen and our consultation was requested for dialysis management. Ms. Graham is usually co mpliant with her treatments 3 times a week as stated. She states that since her last dialysis, she h as not had the intake of any food with high sodium content. Her blood pressure has been elevated and she stated that it has been also running high recently at home. Currently, she said her dyspnea has improved. She has no fevers, chills, chest pain, nausea, vomiting, or diarrhea. Past Medical History: Significant for hypertension, dyslipidemia, aortic stenosis, diabetes type 2 a s well as congestive heart failure. Social History: Patient denies any alcohol, tobacco, or drug use. Family History: There is no history of renal disease. Physical Examination: Vital Signs: Blood pressure is 180/79, pulse 75, afebrile. General: No acute distress. On nasal cannula. Heart: Regular rate and rhythm. No murmurs, rubs, gallops. Lungs: Crepitations heard at the bilateral bases. Abdomen: Soft, nontender, nondistended. Extremities: With trace to 1+ edema. Laboratory Data: Hemoglobin 8.5, hematocrit 24.5. Serum chemistry; sodium 134, potassium 4.4, chlor kacie 95, CO2 of 32, BUN 38, creatinine 5.27, glucose 87, AST 43. BNP over 20,000. Albumin is 3.1. Impression: 1.End-stage renal disease, on hemodialysis. 2.Acute hypoxemic respiratory failure in the setting of volume overload. 3.Acute congestive heart failure, likely diastolic type. 4.Hypertensive urgency. Plan: Patient will require acute hemodialysis here in the hospital. Arrangements will be made for t he patient to receive dialysis in the morning as long as the patient's oxygenation remains stable wit h O2 supplementation. She does not appear in any significant distress at this time. Otherwise, elec trolytes are stable. Continue patient's home medications and can use IV hydralazine 10 mg IV q.4 to 6 hours for improved blood pressure control. We will monitor patient's blood pressure after dialysis and then we will up titrate to antihypertensive regimen as needed. Please ensure the patient does r esume all home medications for hypertension. For the patient's anemia, she will receive erythropoiet in on dialysis days. Continue patient on a renal diet and we will continue to follow. Thank you for the consultation. BRANDI Voice ID: [id number] Report ID: [id number]
[2019-01-17] MEDS: ENOXAPARIN 30 MG/0.3 ML SQ SCH (16:37)
--- NOTE | 2019-01-17 18:35 | PN ---
Date of Progress Note: 01/17/2019 Subjective: Patient seen and examined. Chart reviewed and case discussed with RN and Dr. Pinon. Patient is doing better this morning. Blood pressure, however, still not well controlled. Going for dialysis today. Medications: List reviewed. Physical Examination: Vital Signs: Temperature 98.6, heart rate 72, blood pressure 180/75, respirations 18, O2 of 93% on 2 L via nasal cannula. General: Awake, alert, oriented x3. Elderly female, slightly ill-appearing. CV: S1, S2. Regular rate and rhythm. Peripheral pulses present. Respiratory: Diminished breath sounds. No wheezing or stridor. Gastrointestinal: Abdomen is soft, nontender, nondistended. Positive bowel sounds. Extremities: No clubbing, cyanosis. Pedal edema. Neuro: Cranial nerves 2 through 12 intact grossly. No focal neurological deficit. Laboratory Data: Sodium 134, potassium 4.5, chloride 97, CO2 of 30, BUN 48, creatinine 5.96, glucose 90, calcium 8.4. Phosphorus 3, magnesium 2.3. AST 41 , ALT 35. WBC 4.7, H and H 8.5 and 24.5, platelets 188, neutrophils 79%. Influenza screen is negative. Lumbar spine x-ray shows no compression fracture , acute bone process. No radiologic findings for diskitis or osteomyelitis. Patient has advanced facet joint degenerative change and advanced degenerative change at L2-3 and L3-4 disk levels, personally reviewed. Assessment: An 88-year-old female with: 1. Shortness of breath with acute respiratory failure and hypoxia, improved with nasal cannula, currently on 2 L secondary to severe pulmonary edema. The patient is still slightly tachypneic, improving. 2. Acute pulmonary edema secondary to fluid overload from end-stage renal disease. We will repeat chest x-ray in a.m. Patient will need dialysis. 3. End-stage renal disease, on dialysis Tuesday, Tuesday, Tuesday. Appreciate Dr. Pinon's input. We will continue with dialysis today. 4. Malignant hypertension. We will continue using hydralazine p.r.n. Blood pressure medications this morning were held due to dialysis. The patient usually has hypotension after dialysis. We will continue to monitor closely. 5. Coronary artery disease, marshall artery and marshall heart without angina, stable. 6. Mixed hyperlipidemia. We will continue statin. 7. History of aortic stenosis, stable. 8. Renal artery stenosis, status post stent. 9. Diabetes mellitus type 2 with hyperglycemia and end-stage renal disease. We will continue with sliding scale insulin and monitor blood glucose levels, [id number]. 10. Congestive heart failure, diastolic dysfunction, acute on chronic. Continue diuretics. Monitor I's and O's and daily weights. 11. Major depressive disorder. Continue SSRI. 12. Carotid artery disease, status post carotid endarterectomy. 13. Deep venous thrombosis prophylaxis with Lovenox, renally dosed. 14. Low back pain on the left side. Lumbar spine x-ray shows arthritis. No acute changes or fractures. The patient takes tramadol at home. This is likely musculoskeletal and arthritic in nature. We will continue to monitor. PT eval. Plan: 1. Likely discharge in the 24 to 48 hours depending on clinical response. /MELISSA Voice ID: [id number] Report ID: [id number] DIONICIO
--- NOTE | 2019-01-17 18:59 | PN ---
Date of Progress Note: 01/17/2019 Subjective: Patient is seen at the bedside. No overnight events reported. The patient has remained stable overnight. Blood pressure has been elevated, however, the patient has remained asymptomatic in that regard. The patient denies any fevers, chills, chest pain. She does have shortness of breat h on exertion. There is no nausea, vomiting, or diarrhea. Objective: Vital Signs: Blood pressure is 170/80, pulse 76, afebrile. General: No acute distress. Heart: Regular rate and rhythm. No murmurs, rubs, or gallops. Lungs: Crepitations heard at the bilateral bases. Abdomen: Soft, nontender, nondistended. Positive bowel sounds x4. Extremities: No significant edema. Laboratory Data: Hemoglobin 8.5, hematocrit 24.5. Serum chemistry; sodium 134, potassium 4.5, chlor kacie 97, CO2 of 30, BUN 48, creatinine 5.96, glucose 81, calcium 8.4, phosphorus is 3, albumin 2.8. Impression: 1.End-stage renal disease, on hemodialysis. 2.Acute pulmonary edema, likely in the setting of acute diastolic congestive heart failure. 3.Suspected acute diastolic congestive heart failure. 4.Uncontrolled hypertension. 5.Anemia in the setting of end-stage renal disease. 6.Mineral bone disorder. Plan: The patient will have dialysis today. Orders have been placed for a liberal ultrafiltration o f 2 to 3 L goal. The patient may need additional treatment tomorrow for further volume removal based on the patient's clinical response to treatment today. The patient's antihypertensive regimen has b een resumed by the primary team. If the patient's blood pressure remains elevated, patient can recei ve her home nifedipine dose for improved blood pressure control. The patient will need CARTER for anemi a; however, elevated blood pressure precludes that at this time. The patient's phosphorus is normal. She does have mild hypocalcemia, which will be monitored for the time being. /MELISSA Voice ID: [id number] Report ID: [id number]
[2019-01-17] MEDS: HEPARIN 5000 UNIT/ML 1 ML VIAL SQ SCH ×2 (21:00→22:50)
[2019-01-17] MEDS: RAMIPRIL 5 MG CAP PO SCH (22:48)
[2019-01-17] MEDS: ATORVASTATIN 40 MG TAB PO SCH (22:49)
[2019-01-17] MEDS: SERTRALINE HCL 50 MG TAB PO SCH (22:49)
[2019-01-17] MEDS: MELATONIN 5 MG TABLET PO PRN (22:54)
[2019-01-18] MEDS: HYDRALAZINE HCL 20 MG/ML VIAL IV PRN ×2 (04:28→12:45)
[2019-01-18 04:48] LABS: Absolute Lymphocytes (CBC) 0.6 K/uL (0.7-4.9); Basophils % 0.4 % (0-1.3); Hematocrit 33.7 % (36.0-45.0); Lymphocytes % 15.3 % (15.3-44.8); MPV 8.2 fL (7.6-11.3); RBC Red Blood Cell Count 3.55 M/uL (3.86-4.86)
[2019-01-18 05:13] LABS: Albumin 2.6 g/dL (3.4-5.0); Bilirubin Total 0.5 mg/dL (0.2-1.0); Protein, Total 6.8 g/dL (6.4-8.2)
[2019-01-18 05:23] VITALS: BMI 28.6
[2019-01-18] MEDS: INSULIN -REGULAR HUMAN 50 UNIT/0.5 ML ML SQ SCH ×2 (07:30→11:30)
[2019-01-18] MEDS: DOXAZOSIN 4 MG TAB PO SCH (08:48)
[2019-01-18] MEDS: CLOPIDOGREL 75 MG TABLET PO SCH (08:49)
[2019-01-18] MEDS: ASPIRIN 81 MG CHEWABLE TABLET PO SCH (08:49)
[2019-01-18] MEDS: DOCUSATE NA 100 MG CAP PO SCH (08:49)
[2019-01-18] MEDS: CALCIUM CARBONATE CHEW 500MG TAB PO SCH (08:49)
[2019-01-18] MEDS: HYDRALAZINE HCL 25 MG TABLET PO SCH (08:49)
[2019-01-18] MEDS: ISOSORBIDE MONO SR 30 MG TAB PO SCH (08:49)
[2019-01-18] MEDS: HEPARIN 5000 UNIT/ML 1 ML VIAL SQ SCH (08:50)
[2019-01-18] MEDS: NIFEDIPINE XL 90 MG TABLET PO SCH (08:50)
[2019-01-18 09:52] VITALS: O2SAT 98
[2019-01-18 12:01] VITALS: TEMP 98.5
--- NOTE | 2019-01-18 15:24 | RAD REPORT ---
EXAM DESCRIPTION: RAD - Chest Single View - 01/18/2019 3:03 pm CLINICAL HISTORY: Shortness of breath, pulmonary edema COMPARISON: January 16 TECHNIQUE: AP portable chest image was obtained 1458 hours . FINDINGS: Lung volumes are low. Airspace opacification present in both lung dunne. Pattern shows li ttle if any improvement from January 16. No progression. Heart size is stable. No pneumothorax or lar ge pleural effusion. No acute bony abnormality seen. No acute aortic findings suspected. IMPRESSION: Extensive pulmonary edema showing little or no improvement from January 16.
[2019-01-18 16:38] VITALS: BP 150/80
[2019-01-18] MEDS ORDERED: VANCOMYCIN 1.25 GM in NA CHLORIDE 0.9% 250 ML IVPB SCH (21:00)
--- NOTE | 2019-01-19 03:39 | DS ---
Date of Discharge: 01/18/2019 Consultants: Dr. Pinon and Dr. Gonzales with Nephrology. Admitting Diagnoses: 1.Shortness of breath. 2.Acute respiratory failure with hypoxia. 3.Acute pulmonary edema secondary to fluid overload from end-stage renal disease. 4.End-stage renal disease, on hemodialysis Tuesday, Tuesday, Tuesday. 5.Malignant hypertension. 6.Coronary artery disease artery, table mountain artery, table mountain heart without angina. 7.Mixed hyperlipidemia. 8.History of aortic stenosis. 9.Renal artery stenosis, status post stent. 10.Diabetes mellitus type 2 with hyperglycemia, end-stage renal disease. 11.Congestive heart failure, diastolic dysfunction, acute on chronic. 12.Major depressive disorder. 13.Carotid artery disease status post CEA. Discharge Diagnoses: 1.Shortness of breath due to acute respiratory failure, hypoxia, resolved. 2.Acute pulmonary edema secondary to fluid overload from end-stage renal disease, resolved. 3.End-stage renal disease, improving. 4.Malignant hypertension, improved. 5.Coronary artery disease table mountain artery, table mountain heart without angina, stable. 6.Mixed hyperlipidemia, we will continue statin. 7.History of aortic stenosis, stable. 8.Renal artery stenosis, status post stent. 9.Diabetes mellitus type 2 with hyperglycemia and end-stage renal disease, stable. 10.Congestive heart failure, diastolic dysfunction, acute on chronic. 11.Major depressive disorder. 12.Carotid artery disease, status post CEA. 13.Low back pain on the left side. 14.Degenerative disk disease. Hospital Course: Patient is an 88-year-old female with significant past medical history of diabetes, heart disease, end-stage renal disease on dialysis, uncontrolled hypertension, hyperlipidemia, comes into the hospital after her dialysis session becoming short of breath. The patient's chest x-ray re vealed pulmonary edema. She was started on diuretics and was admitted to the hospital for dialysis. Nephrology was consulted and the patient was taken for dialysis the following day. She had improvem ent in her shortness of breath. The patient's electrolytes remained stable. Her blood pressure was not well controlled, is consistently in the 180s to 190s. She required multiple doses of IV medicati ons. She also complained of back pain, which is chronic. Lumbar x-ray was done, which did not show any acute compression fracture or bone process. No radiographic findings for diskitis or osteomyelit is. She does have degenerative disk disease. Patient's symptoms improved. She was cleared from nep hrology standpoint. Her electrolytes were stable. She was tolerating her diet. Patient was then cl eared for discharge and stable for discharge. She was sent home in a stable condition. Activity: As tolerated. Fall precautions. Diet: Renal. Followup: Follow up with primary care physician in 2-3 days. Follow up with director of academic, Dr. Chong robins in 2 weeks. Return to ER for worsening condition. Medications: As per medication reconciliation list. Physical Examination: General: Awake, alert, and oriented x3. No acute distress, elderly female. CV: S1, S2. Respiratory: Moving air well. Minimally diminished breath sounds at the bases. GI: Abdomen is soft, nontender, nondistended. Positive bowel sounds. Extremities: No clubbing, cyanosis, pedal edema. Neurologic: Nonfocal. Total time spent discharging the patient was 41 minutes. /MELISSA Voice ID: [id number] Report ID: [id number]
--- OUTSIDE RECORDS SUMMARY | 2019-01-28 14:51 | XMS REPORT | Summary of Care ---
:1930 Author Organization [facility] - [facility] Address [address] [place] [address] Care Team Providers Name Role Phone Anna Marie Hannah Primary Care Provider Reason for Visit Reason Comments Follow-up post op fistula (Routine) Status Reason Specialty Diagnoses / Referred By Referred To Procedures Contact Contact Closed [facility]-VASCULAR Diagnoses Dialysis AV fistula malfunction, initial encounter ESRD (end stage renal disease) Silvana Millan, SURGERY / Surgery Procedures Discharge Follow-Up: Specialty Service ANDRIY-VASCULAR SURGERY; [address] [place] [phone] Encounter Details Date Type Department Care Team Description 10/17/2018 Office Visit [facility] Vascular Silvana Millan, Follow up ( Primary Surgery- Jalen DE LOS SANTOS Dx) [address] [address] [place], [place] [phone] [address] [phone] Allergies Active Allergy Reactions Severity Noted Date Comments Fexofenadine Hcl Nausea and/or Vomiting 05/16/2018 Ciprofloxacin (Bulk) Nausea and/or Vomiting 05/16/2018 Gatifloxacin Unknown - See comments 09/25/2015 Penicillins Rash 05/16/2018 Sulfa (Sulfonamide Antibiotics) Nausea and/or Vomiting 05/16/2018 documented as of this encounter (statuses as of 10/17/2018) Medications Medication Sig Dispensed Refills Start Date End Date Status aspirin 81 mg chewable Take 81 mg by 0 Active tablet mouth daily. clopidogrel (PLAVIX) 75 Take 75 mg by 0 Active mg tablet mouth daily. hydralAZINE 100 mg Take 100 mg by 0 Active tablet mouth every 6 (six) hours. isosorbide mononitrate Take 90 mg by 0 Active 30 mg 24 hr tablet mouth. NIFEdipine XL 90 mg 24 Take 90 mg by 0 Active hr tablet mouth 2 (two) times daily. cloniDINE 0.3 mg tablet Take 0.3 mg by 0 Active mouth 2 (two) times daily. doxazosin 8 mg tablet Take 8 mg by 0 Active mouth 2 (two) times daily. docusate 100 mg capsule Take 100 mg by 0 Active mouth 2 (two) times daily. calcium carbonate (TUMS Take 1,000 mg by 0 Active ORAL) mouth 2 (two) times daily. vitamin B-12 (VITAMIN Take 1,000 mcg 0 Active B-12) 1,000 mcg tablet by mouth daily. atorvastatin (LIPITOR) Take 80 mg by 0 Active 80 mg tablet mouth at bedtime. ramipril 10 mg capsule Take 10 mg by 0 Active mouth daily. SERTraline 50 mg tablet Take 50 mg by 0 Active mouth daily. folic acid/vit B complex Take by mouth. 0 Active and C (DIALYVITE 800 ORAL) Melatonin 5 mg Cap Take by mouth. 0 Active Cholecalciferol, Vitamin Take 5,000 Units 0 Active D3, (VITAMIN D3) 5,000 by mouth daily. unit tablet CEPHALEXIN Take 500 mg by 0 Active ORALIndications: UTI for mouth 3 (three) 10 days. On 10 day times daily. Indications: UTI for 10 days. On 10 day traMADol 50 mg Take 1 tablet by 40 tablet 0 10/10/2018 Active tabletIndications: mouth every 6 Malfunction of (six) hours as arteriovenous dialysis needed for Pain fistula, subsequent (scale 7-10). encounter documented as of this encounter (statuses as of 10/17/2018) Active Problems Problem Noted Date ESRD (end stage renal disease) 09/28/2018 Dialysis AV fistula malfunction, initial encounter 07/12/2018 Overview: Added automatically from request for surgery [id number] documented as of this encounter (statuses as of 10/17/2018) Social History Tobacco Use Types Packs/Day Years Used Date Never Smoker Smokeless Tobacco: Never Used Sex Assigned at Date Recorded Not on file Job Start Date Occupation Industry Not on file Not on file Not on file Travel History Travel Start Travel End No recent travel history available. documented as of this encounter Last Filed Vital Signs Vital Sign Reading Time Taken Comments Blood Pressure 97/47 10/17/2018 10:34 AM CDT Pulse 85 10/17/2018 10:34 AM CDT Temperature 37 C (98.6 F) 10/17/2018 10:34 AM CDT Respiratory Rate 18 10/17/2018 10:34 AM CDT Oxygen Saturation - - Inhaled Oxygen Concentration - - Weight 68.9 kg (152 lb) 10/17/2018 10:34 AM CDT Height 165.1 cm (5' 5") 10/17/2018 10:34 AM CDT Body Mass Index 25.29 10/17/2018 10:34 AM CDT documented in this encounter Progress Notes Silvana Millan MD - 10/17/2018 10:30 AM CDTVASCULAR SURGERY FACULTY PROGRESS NOTE 10/17/2018 Patient presents today for evaluation of left forearm loop AVG placed about 2 weeks ago. She is doing well today. Was having some swelling and pain in the left arm after the procedure but that has mostly resolved and she is no longer requiring any narcotics for this. There is a thrill in the brachial vein distal to the graft outflow and strong signal in the graft. Will plan to have them start using the graft in 4 weeks and then return to clinic in 6 weeks for permcath removal. Silvana Millan MD, [facility] Vascular Surgery Sally Doty RN - 10/17/2018 10:30 AM CDPair Graham is a 88 year old female comes to clinic with assistive device; wheelchair for post op follow up. Pt comes alone . Pt in NAD w/ pain reported 0/10. Pt preferred language is Wallisian. Pt. denies fall in last 12 months. Allergies and medications reviewed and updated. documented in this encounter Plan of Treatment Date Type Specialty Care Team Description 11/28/2018 Office Visit Vascular Surgery Silvana Millan MD [address] [place] [phone] Health Maintenance Due Date Last Done Comments DTaP,Tdap,and Td Vaccines (1 - Tdap) 1949 Zoster Recombinant Vaccine (SHINGRIX) (1 of 2) 1980 Medicare Wellness Visit 09/27/1995 Osteoporosis Screening 09/27/1995 PNEUMOCOCCAL VACCINES 65+ (1 of 2 - PCV13) 09/27/1995 INFLUENZA VACCINE 11/19/2018 documented as of this encounter Implants Implanted Type Area Export Traffic Department Manager Device Shelf Model / Identifier Expiration Date Serial / Lot Graft, [place] Propaten Vascular Standard-Walled 6mm 40cm #[id number] - [id number] GRAFT Left: Arm W L [place] 12/14/2021 [id number] / Implanted: Qty: 1 on 09/28/2018 by Silvana Millan MD at [facility] [id number] / 0 documented as of this encounter Results Not on filedocumented in this encounter Visit Diagnoses Diagnosis Follow up - Primary documented in this encounter Insurance Payer Benefit Plan Subscriber ID Effective Dates Phone Address Type / Group [employer] - CHOICE CARE [id number] 2018-[employer] Medicare Adv MANAGED t PPO MEDICARE documented as of this encounter
--- OUTSIDE RECORDS SUMMARY | 2019-01-28 14:51 | XMS REPORT | Summary of Care ---
:1930 Author Organization [facility] - [facility] Address [address] [place] [address] Care Team Providers Name Role Phone Anna Marie Hannah Primary Care Provider Reason for Visit Reason Comments Follow-up post op fistula (Routine) Status Reason Specialty Diagnoses / Referred By Referred To Procedures Contact Contact Closed ANDRIY-VASCULAR Diagnoses Dialysis AV fistula malfunction, initial encounter ESRD (end stage renal disease) Silvana Millan, SURGERY / Surgery Procedures Discharge Follow-Up: Specialty Service ANDRIY-VASCULAR SURGERY; [address] [place] [phone] Encounter Details Date Type Department Care Team Description 10/17/2018 Office Visit [facility] Vascular Silvana Millan, Follow up ( Primary Surgery- Jalen DE LOS SANTOS Dx) [address] [address] [place], [place] [phone] [phone] Allergies Active Allergy Reactions Severity Noted Date [...] Overview: Added automatically from request for surgery [id number] documented as of this encounter (statuses as [...] weeks for permcath removal. Silvana Millan MD, [facility] Vascular Surgery Sally Doty RN - 10/17/2018 10:30 AM CDPari Graham is a 88 year old female comes to clinic with assistive device; wheelchair for post op follow up. Pt comes alone . Pt in NAD w/ pain reported 0/10. Pt preferred language is Lithuanian. Pt. denies fall in last 12 months. Allergies and medications reviewed and updated. documented in this encounter Plan of Treatment Date Type Specialty Care Team Description 11/28/2018 Office Visit Vascular Surgery Silvana Millan MD [address] [place] [phone] Health Maintenance Due Date Last Done Comments DTaP,Tdap,and Td Vaccines (1 - Tdap) 1949 Zoster Recombinant Vaccine (SHINGRIX) (1 of 2) 1980 Medicare Wellness Visit 09/27/1995 Osteoporosis Screening 09/27/1995 PNEUMOCOCCAL VACCINES 65+ (1 of 2 - PCV13) 09/27/1995 INFLUENZA VACCINE 11/19/2018 documented as of this encounter Implants Implanted Type Area Air Carrier Inspector Device Shelf Model / Identifier Expiration Date Serial / Lot Graft, [place] Propaten Vascular Standard-Walled 6mm 40cm #[id number] - [id number] GRAFT Left: Arm W L [place] 12/14/2021 [id number] / Implanted: Qty: 1 on 09/28/2018 by Silvana Millan MD at [facility] [id number] / 0 documented as of this encounter Results Not on filedocumented in this encounter Visit Diagnoses Diagnosis Follow up - Primary documented in this encounter Insurance Payer Benefit Plan Subscriber ID Effective Dates Phone Address Type / Group [employer] - CHOICE CARE [id number] 2018-[employer] Medicare Adv MANAGED t PPO MEDICARE documented as of this encounter
--- OUTSIDE RECORDS SUMMARY | 2019-01-28 14:51 | XMS REPORT ---
:1930 Author Organization [facility] Address [address] [place] [address] [address] [place] [address] Care Team Providers Name Role Phone Unavailable Unavailable Unavailable Problems This patient has no known problems. Allergies, Adverse Reactions, Alerts This patient has no known allergies or adverse reactions. Medications This patient has no known medications.
--- OUTSIDE RECORDS SUMMARY | 2019-01-28 14:52 | XMS REPORT | Summary of Care ---
:1930 Author Organization [facility] Address [address] [place] [id number] Care Team Providers Name Role Phone Anna Marie Hannah Primary Care Provider Encounter Details Date Type Department Care Team Description 11/28/2018 Letter (Out) [facility] Vascular Silvana Millan MD Surgery- [address] [phone] [place] [address] [place] [address] [phone] Allergies Active Allergy Reactions Severity Noted Date Comments Fexofenadine Hcl Nausea and/or Vomiting 05/16/2018 Ciprofloxacin (Bulk) Nausea and/or Vomiting 05/16/2018 Gatifloxacin Unknown - See comments 09/25/2015 Penicillins Rash 05/16/2018 Sulfa (Sulfonamide Antibiotics) Nausea and/or Vomiting 05/16/2018 documented as of this encounter (statuses as of 11/28/2018) Medications Medication Sig Dispensed Refills Start Date [...] for mouth 3 (three) 10 days. On 08/28 day times daily. Indications: UTI for 10 days. On 08/28 day traMADol 50 mg Take 1 tablet by 40 tablet 0 10/10/2018 Active tabletIndications: mouth every 6 Malfunction of (six) hours as arteriovenous dialysis needed for Pain fistula, subsequent (scale 7-10). encounter documented as of this encounter (statuses as of 11/28/2018) Active Problems Problem Noted Date ESRD (end stage renal disease) 09/28/2018 Dialysis AV fistula malfunction, initial encounter 07/12/2018 Overview: Added automatically from request for surgery [id number] documented as of this encounter (statuses as of 11/28/2018) Social History Tobacco Use Types Packs/Day Years Used Date Never Smoker Smokeless Tobacco: Never Used Sex Assigned at Date Recorded Not on file Job Start Date Occupation Industry Not on file Not on file Not on file Travel History Travel Start Travel End No recent travel history available. documented as of this encounter Last Filed Vital Signs Not on filedocumented in this encounter Plan of Treatment Health Maintenance Due Date Last Done Comments DTaP,Tdap,and Td Vaccines (1 - Tdap) 1949 Zoster Recombinant Vaccine (SHINGRIX) (1 of 2) 1980 Medicare Wellness Visit 09/27/1995 Osteoporosis Screening 09/27/1995 PNEUMOCOCCAL VACCINES 65+ (1 of 2 - PCV13) 09/27/1995 INFLUENZA VACCINE (#1) 2018 documented as of this encounter Implants Implanted Type Area Well Services Operator Device Shelf Model / Identifier Expiration Date Serial / Lot Graft, [place] Propaten Vascular Standard-Walled 6mm 40cm #[id number] - [id number] GRAFT Left: Arm W L [place] 12/14/2021 [id number] / Implanted: Qty: 1 on 09/28/2018 by Silvana Millan MD at [facility] [id number] / 0 documented as of this encounter Results Not on filedocumented in this encounter Insurance Payer Benefit Plan Subscriber ID Effective Dates Phone Address Type / Group HUMANA - CHOICE CARE [id number] 2018-[facility] Medicare Adv MANAGED t O MEDICARE documented as of this encounter
--- OUTSIDE RECORDS SUMMARY | 2019-01-28 14:52 | XMS REPORT | Summary of Care ---
:1930 Author Organization [facility] Address [address] [place] [id number] Care Team Providers Name Role Phone Anna Marie Hannah Primary Care Provider Reason for Visit Reason Comments Follow-up fistula Encounter Details Date Type Department Care Team Description 11/28/2018 Office Visit [facility] Vascular Silvana Millan, ESRD (end stage renal Surgery- Jalen DE LOS SANTOS disease) (Primary Dx) [address] [address] [place], [place] [phone] [address] [phone] Allergies Active Allergy Reactions Severity Noted Date [...] Overview: Added automatically from request for surgery [id number] documented as of this encounter (statuses as [...] Sign Reading Time Taken Comments Blood Pressure 172/59 11/28/2018 11:24 AM CDT Pulse 90 11/28/2018 11:24 AM CDT Temperature 36.8 C (98.3 F) 11/28/2018 11:20 AM CDT Respiratory Rate 18 11/28/2018 11:20 AM CDT Oxygen Saturation - - Inhaled Oxygen Concentration - - Weight 68.9 kg (152 lb) 11/28/2018 11:20 AM CDT Height 167.6 cm (5' 6") 11/28/2018 11:20 AM CDT Body Mass Index 24.53 11/28/2018 11:20 AM CDT documented in this encounter Progress Notes Silvana Millan MD - 11/28/2018 11:15 AM CDTI discussed the patient with Dr. Peterson then personally examined the patient on 11/28/2018. I agree with the note as detailed by Dr. Peterson. I actively participated in the decision- making process regarding the assessment and plan of care. Please see the resident's note for additional details. Patient given informed clearing her left arm graft for use with dialysis. Patient to return after 2 weeks of successful use for PermCath removal. Silvana Millan MD, [facility] Vascular Surgery Sally Doty RN - 11/28/2018 11:15 AM CDTPt to monitor BP at home if it remains elevated or he is to become symptomatic he is to contact his PCP or go directly to the ER Sally Doty RN - 11/28/2018 11:15 AM CDPari Graham is a 88 year old female comes to clinic independent in ambulation for follow up fistula. Pt comes alone . Pt in NAD w/ pain reported 0/10. Pt preferred language is Azeri. Pt. denies fall in last 12 months. Allergies and medications reviewed and updated. Nikos Grace DO - 11/28/2018 11:15 AM CDT Visit Type: Clinic Note / History and Physical Chief Complaint: follow up LUE AVG HPI Marine Graham is a 88 year old female with past medical history as below who presents for follow up s/p LUE forearm loop PTFE brachio-cephalic fistula creation on 09/28/2018. Patient has a R IJ permacath in place. Has dialysis session on MWF with last dialysis session yesterday 11/27/2018 via R IJ permacath. Ms. Graham has elected not to use her LUE AVG for dialysis until her follow up. She has been given informed clearance for her dialysis center to use her left arm graft. Denies chest pain, shortness of breath, fevers or chills. Past Medical History Past Medical History: Diagnosis Date Allergic rhinitis Anemia CHF (congestive heart failure) Depression Diabetes mellitus ESRD (end stage renal disease) Hyperlipidemia Hypertension Transfusion history Past Surgical History Past Surgical History: Procedure Laterality Date ARTERIOVENOUS FISTULA CREATION Left SECTION CHOLECYSTECTOMY ENDOVASCULAR UPPER EXTREMITY ANGIOPLASTY Left 09/28/2018 Surgeon: Silvana Millan MD; [facility] EXPLORATION, CAROTID ARTERY Right FISTULOGRAM Left 09/28/2018 Surgeon: Silvana Millan MD; [facility] PHACOEMULSIFICATION OF CATARACT WITH INTRAOCULAR LENS IMPLANT Bilateral PTFE GRAFT INSERTION Left 09/28/2018 Surgeon: Silvana Millan MD; [facility] Family History No family history on file. Social History Social History Socioeconomic History Marital status: Spouse name: Not on file Number of children: Not on file Years of education: Not on file Highest education level: Not on file Occupational History Occupation: retired Social Needs Financial resource strain: Not on file Food insecurity: Worry: Not on file Inability: Not on file Transportation needs: Medical: Not on file Non-medical: Not on file Tobacco Use Smoking status: Never Smoker Smokeless tobacco: Never Used Substance and Sexual Activity Alcohol use: Not on file Drug use: Not on file Sexual activity: Not on file Lifestyle Physical activity: Days per week: Not on file Minutes per session: Not on file Stress: Not on file Relationships Social connections: Talks on phone: Not on file Gets together: Not on file Attends yarsanism service: Not on file Active member of club or organization: Not on file Attends meetings of clubs or organizations: Not on file Relationship status: Not on file Intimate partner violence: Fear of current or ex partner: Not on file Emotionally abused: Not on file Physically abused: Not on file Forced sexual activity: Not on file Other Topics Concern Not on file Social History Narrative Not on file Allergies Allergen Reactions Karlene [Fexofenadine Hcl] Nausea and/or Vomiting Ciprofloxacin (Bulk) Nausea and/or Vomiting Gatifloxacin Unknown - See comments Pcn [Penicillins] Rash Sulfa (Sulfonamide Antibiotics) Nausea and/or Vomiting Current Outpatient Medications Medication Sig Dispense Refill traMADol 50 mg tablet Take 1 tablet by mouth every 6 (six) hours as needed for Pain (scale 7-10). 40 tablet 0 CEPHALEXIN ORAL Take 500 mg by mouth 3 (three) times daily. Indications: UTI for 10 days. On 08/28 day aspirin 81 mg chewable tablet Take 81 mg by mouth daily. atorvastatin (LIPITOR) 80 mg tablet Take 80 mg by mouth at bedtime. calcium carbonate (TUMS ORAL) Take 1,000 mg by mouth 2 (two) times daily. Cholecalciferol, Vitamin D3, (VITAMIN D3) 5,000 unit tablet Take 5,000 Units by mouth daily. cloniDINE 0.3 mg tablet Take 0.3 mg by mouth 2 (two) times daily. clopidogrel (PLAVIX) 75 mg tablet Take 75 mg by mouth daily. docusate 100 mg capsule Take 100 mg by mouth 2 (two) times daily. doxazosin 8 mg tablet Take 8 mg by mouth 2 (two) times daily. folic acid/vit B complex and C (DIALYVITE 800 ORAL) Take by mouth. hydralAZINE 100 mg tablet Take 100 mg by mouth every 6 (six) hours. isosorbide mononitrate 30 mg 24 hr tablet Take 90 mg by mouth. Melatonin 5 mg Cap Take by mouth. NIFEdipine XL 90 mg 24 hr tablet Take 90 mg by mouth 2 (two) times daily. ramipril 10 mg capsule Take 10 mg by mouth daily. SERTraline 50 mg tablet Take 50 mg by mouth daily. vitamin B-12 (VITAMIN B-12) 1,000 mcg tablet Take 1,000 mcg by mouth daily. No current facility-administered medications for this visit. Review of Systems (-)=Negative,(+)=Positive General/Constitutional: Negative except per HPI Skin/Breast: Negative except per HPI HEENT: Negative except per HPI CV: Negative except per HPI Respiratory: Negative except per HPI GI: Negative except per HPI : Negative except per HPI Musculoskeletal: Negative except per HPI Neurologic: Negative except per HPI Hematologic: Negative except per HPI Endocrine: Negative except per HPI Physical Exam (-)=Negative,(+)=Positive BP (!) 172/59 (BP Location: Left arm, Patient Position: Sitting, BP CUFF SIZE: Adult Large) | Pulse90 | Temp 36.8 C (98.3 F) (Oral) | Resp 18 | Ht 5' 6 " (1.676 m) | Wt 152 lb (68.9 kg) | BMI24.53 kg/m General: alert and oriented x 4 (person, place, date/time and situation); no apparent distress HEENT: pupils, equal, round, reactive to light; extraocular movements intact; oropharynx clear; moist mucous membranes Respiratory: breathing unlabored Cardiovascular: RRR Gastrointestinal: soft Musculoskeletal: no clubbing, cyanosis or edema, R IJ permacath in place, LUE forearm loop graft with palpable thrill Integumentary: no rashes Neurologic: no focal deficits Vascular: palpable radial pulses bilaterally, palpable thrill in LUE forearm loop graft Assessment Marine Graham is a 88 year old female with past medical history as above who presents for follow up s/p LUE forearm loop PTFE brachio-cephalic fistula creation on 09/28/2018. Patient has a R IJ permacath in place. Has dialysis session on MWF with last dialysis session yesterday 11/27/2018 via R IJ permacath. Ms. Graham has elected not to use her LUE AVG for dialysis until her follow up. She has been given informed clearance for her dialysis center to use her left arm graft. Plan -informed clearance given for left arm graft use -return to clinic after 2 weeks of successful graft use for permacath removal Nikos Peterson DO PGY1 Vascular Surgery documented in this encounter Plan of Treatment Health Maintenance Due Date Last Done Comments DTaP,Tdap,and Td Vaccines (1 - Tdap) 1949 Zoster Recombinant Vaccine (SHINGRIX) (1 of 2) 1980 Medicare Wellness Visit 09/27/1995 Osteoporosis Screening 09/27/1995 PNEUMOCOCCAL VACCINES 65+ (1 of 2 - PCV13) 09/27/1995 INFLUENZA VACCINE (#1) 2018 documented as of this encounter Implants Implanted Type Area Insulating Machine Operator Device Shelf Model / Identifier Expiration Date Serial / Lot Graft, Brimley Propaten Vascular Standard-Walled 6mm 40cm #[id number] - [id number] GRAFT Left: Arm W L Brimley 12/14/2021 [id number] / Implanted: Qty: 1 on 09/28/2018 by Silvana Millan MD at [facility] [id number] / 0 documented as of this encounter Results Not on filedocumented in this encounter Visit Diagnoses Diagnosis ESRD (end stage renal disease) - Primary End stage renal disease documented in this encounter Insurance Payer Benefit Plan Subscriber ID Effective Dates Phone Address Type / Group [employer] - CHOICE CARE [id number] 2018-Presen Medicare Adv MANAGED t PPO MEDICARE documented as of this encounter
--- OUTSIDE RECORDS SUMMARY | 2019-01-28 14:52 | XMS REPORT | Summary of Care ---
:1930 Author Organization [facility] Address [address] [place] [address] Care Team Providers Name Role Phone Anna Marie Hannah Primary Care Provider Reason for Visit Reason Comments Follow-up fistula Encounter Details Date Type Department Care Team Description 11/28/2018 Office Visit [facility] Vascular Silvana Millan, ESRD (end stage renal Surgery- Jalen DE LOS SANTOS disease) (Primary Dx) [address] [address] [place], [place] [phone] [address] [phone] Allergies Active Allergy Reactions Severity Noted Date [...] Overview: Added automatically from request for surgery [id number] documented as of this encounter (statuses as [...] use for PermCath removal. Silvana Millan MD, [facility] Vascular Surgery Sally Doty RN - [...] pain reported 0/10. Pt preferred language is Mongolian. Pt. denies fall in last 12 months. [...] file Gets together: Not on file Attends anglican service: Not on file Active member of [...] of this encounter Implants Implanted Type Area Assessment Clinician Device Shelf Model / Identifier Expiration Date Serial / Lot Graft, [employer] Propaten Vascular Standard-Walled 6mm 40cm #[id number] - [id number] GRAFT Left: Arm W L [employer] 12/14/2021 [id number] / Implanted: Qty: 1 on 09/28/2018 by Silvana Millan MD at [facility] [address] [id number] / 0 documented as of this encounter Results Not on filedocumented in this encounter Visit Diagnoses Diagnosis ESRD (end stage renal disease) - Primary End stage renal disease documented in this encounter Insurance Payer Benefit Plan Subscriber ID Effective Dates Phone Address Type / Group [employer] - CHOICE CARE [id number] 2018-Presen Medicare Adv MANAGED t PPO MEDICARE documented as of this encounter
== END 2019-01-18 16:37 | disposition home or self-care (01) | DRG 291 ==
LOC: ER 09:41 → ERHOLD 15:03 → 4TH 15:43
PROVIDERS: ADMIT Family Medicine; ATTEND Family Medicine
PROC: 5A1D70Z Performance of Urinary Filtration, Intermittent, Less than 6 Hours Per Day (ICD-10-PCS; principal; 2019-01-17)
DX: I13.2 Hypertensive heart and chronic kidney disease with heart failure and with stage 5 chronic kidney disease, or end stage renal disease (principal); I50.33 Acute on chronic diastolic (congestive) heart failure; N18.6 End stage renal disease; J96.01 Acute respiratory failure with hypoxia; E11.22 Type 2 diabetes mellitus with diabetic chronic kidney disease; E11.65 Type 2 diabetes mellitus with hyperglycemia; I25.10 Atherosclerotic heart disease of native coronary artery without angina pectoris; E78.2 Mixed hyperlipidemia; I70.1 Atherosclerosis of renal artery; F32.9 Major depressive disorder, single episode, unspecified; I77.89 Other specified disorders of arteries and arterioles; M54.5 Low back pain; M51.36 Other intervertebral disc degeneration, lumbar region; Z99.2 Dependence on renal dialysis; M89.9 Disorder of bone, unspecified; Z88.0 Allergy status to penicillin
CPT/HCPCS: 36415; 71045; 72100; 80048; 80053; 80076; 82947; 83735; 83880; 84100; 84484; 85025; 85610; 87804; 90935; 93005; 94760; 96374; 97116; 97161; 97530; 99285; J0360; J1644; J1650; J2405; J3370; J7030

== ENCOUNTER 2019-02-15 19:58 | Inpatient (IN) | payer OTHER ==
--- OUTSIDE RECORDS SUMMARY | 2019-02-15 20:00 | XMS REPORT ---
:1930 Author Organization [facility] Address [facility] [place] [address] Care Team Providers Name Role Phone Unavailable Unavailable Unavailable Problems This patient has no known problems. Allergies, Adverse Reactions, Alerts This patient has no known allergies or adverse reactions. Medications This patient has no known medications.
[2019-02-15 20:50] LABS: Absolute Lymphocytes (CBC) 0.8 K/uL (0.7-4.9); Basophils % 0.7 % (0-1.3); Hematocrit 25.3 % (36.0-45.0); MPV 8.2 fL (7.6-11.3); Protime INR 1.19; RBC Red Blood Cell Count 2.62 M/uL (3.86-4.86)
[2019-02-15 21:08] LABS: Albumin 3.3 g/dL (3.4-5.0); Bilirubin Direct 0.3 mg/dL (0-0.2); Bilirubin Total 0.8 mg/dL (0.2-1.0); Magnesium 2.2 mg/dL (1.8-2.4); Protein, Total 7.6 g/dL (6.4-8.2); Troponin (Emerg Dept Use Only) 0.02 ng/mL (0.0-0.045)
--- NOTE | 2019-02-15 21:43 | ER ---
Nurse's Notes [facility] Name: Erendira Graham Age: 88 yrs Sex: Female : 1930 Arrival Date: 02/15/2019 Time: 19:59 Bed 28 Private MD: Diagnosis: Hypoxia;Pulmonary edema;Unspecified combined systolic (congestive) and diastolic (congestive) heart failure Presentation: 02/15 20:11 Presenting complaint: Child states: shortness of breath started about an hour ago. She ca1 had previous SOB but not that warrants a hospital visit. She is a dialysis pt with schedules of M,W,F. Last dialysis was yesterday. C/O R shoulder pain at this time but reports to be sustained from a fall long time ago. Denies, fever, coughing and congestion. SPO2 80% at RA, 88% at 2LPM, 91% at 3LPM. Transition of care: patient was not received from another setting of care. Onset of symptoms was February 15, 2019 at 19:00. Risk Assessment: Do you want to hurt yourself or someone else? Patient reports no desire to harm self or others. Initial Sepsis Screen: Does the patient meet any 2 criteria? No. Patient's initial sepsis screen is negative. Does the patient have a suspected source of infection? No. Patient's initial sepsis screen is negative. 20:11 Method Of Arrival: Wheelchair ca1 20:11 Acuity: KEKE 2 ca1 20:11 Care prior to arrival: None. ca1 Triage Assessment: 20:11 Respiratory: Reports shortness of breath Onset: The symptoms/episode began/occurred the tr5 patient has moderate shortness of breath. Historical: - Allergies: 21:37 Karlene; tr5 21:37 Bactrim; tr5 21:37 Ciprofloxacin; tr5 21:37 Demerol; tr5 21:37 PENICILLINS; tr5 21:37 Talwin; tr5 21:37 tequin; tr5 - Home Meds: 21:37 acetaminophen-codeine 300-30 mg Oral tab 1 tab as needed for Pain [Active]; aspirin 81 tr5 mg Oral TbEC 1 tab once daily [Active]; clonidine HCl 0.3 mg Oral tab 1 tab 2 times per day [Active]; DIALYVITE 800 0.8 mg Oral tab [Active]; docusate sodium 100 mg Oral tab 2 times per day [Active]; doxazosin 8 mg Oral tab twice a day [Active]; hydralazine 100 mg Oral tab 3 times per day [Active]; isosorbide mononitrate 30 mg Oral Tb24 twice a day [Active]; melatonin 5 mg Oral tab nightly [Active]; minoxidil 2.5 mg Oral tab 1 tabs 2 times per day [Active]; nifedipine 90 mg Oral TbER twice a day [Active]; Plavix 75 mg Oral tab 1 tab once daily [Active]; sertraline 50 mg Oral tab 1 tab once daily [Active]; Tums 300 mg (750 mg) Oral chew [Active]; Vitamin D Oral 5000 unit daily [Active]; - PMHx: 21:37 CHF; Diabetes - NIDDM; Dialysis; ESRD; Hypertension; tr5 - PSHx: 21:37 None; tr5 - Immunization history:: Adult Immunizations up to date. - Social history:: Smoking status: unknown. - Ebola Screening: : No symptoms or risks identified at this time. Screenin:37 Abuse screen: Denies threats or abuse. Nutritional screening: No deficits noted. tr5 Tuberculosis screening: No symptoms or risk factors identified. Fall Risk None identified. Assessment: 20:00 General: Appears uncomfortable, Behavior is calm, cooperative, appropriate for age. tr5 Pain: Denies pain. Neuro: Level of Consciousness is awake, alert, obeys commands, Oriented to person, place, time, Scientific Laboratory Supervisor are equal bilaterally Moves all extremities. Cardiovascular: Heart tones present Capillary refill < 3 seconds Pulses are all present. Edema is 2+ to left foot and right foot. Cardiovascular: Rhythm is regular. Respiratory: Airway is patent Respiratory effort is even, Respiratory pattern is regular, symmetrical, Breath sounds with crackles bilaterally. Respiratory: Parent/caregiver reports the patient having shortness of breath at rest. GI: No signs and/or symptoms were reported involving the gastrointestinal system. : No signs and/or symptoms were reported regarding the genitourinary system. EENT: No signs and/or symptoms were reported regarding the EENT system. Derm: No signs and/or symptoms reported regarding the dermatologic system. Musculoskeletal: No signs and/or symptoms reported regarding the musculoskeletal system. 20:10 Reassessment: Provider at bedside. ca1 Vital Signs: 20:11 BP 169 / 49; Pulse 75; Resp 32; Temp 98.5(O); Pulse Ox 80% on R/A; Weight 77.11 kg (R); ca1 Height 5 ft. 5 in. (165.10 cm) (R); Pain 8/10; 20:15 Pulse Ox 91% on 3 lpm NC; ca1 21:30 BP 147 / 93; Pulse 82; Resp 18; Pulse Ox 99% on 2 lpm NC; tr5 20:11 Body Mass Index 28.29 (77.11 kg, 165.10 cm) ca1 ED Course: 19:59 Patient arrived in ED. mr 20:02 Madiha Man, [facility] kb 20:02 Jameson Soares MD is Attending Physician. kb 20:06 Marcial Quiles, JONH is Primary Nurse. tr5 20:11 Arm band placed on right wrist. ca1 20:13 Triage completed. ca1 20:24 Bed in low position. Call light in reach. Side rails up X 1. Side rails up X2. Adult w/ jp3 patient. Warm blanket given. Verbal reassurance given. victorian literature professor on. Pulse ox on. NIBP on. 20:24 EKG done, by ED staff, reviewed by Madiha MEIER. Oxygen administration via jp3 nasal cannula \T\ 3L/min Response to oxygen therapy: symptoms improved. 20:39 Radiology exam delayed due to IV insertion attempt and/or patient not having mh1 appropriate IV at this time. patient is not appropriately dressed for the exam at this time. 21:02 X-ray completed. Portable x-ray completed in exam room. Patient tolerated procedure mh1 well. 21:03 No provider procedures requiring assistance completed. Inserted saline lock: 20 gauge mg2 in right forearm, using aseptic technique. Blood collected. 21:42 Yulissa Trinidad MD is Hospitalizing Provider. kb 22:23 Patient admitted, IV remains in place. tr5 Administered Medications: 21:39 CANCELLED (Physician Discretion): Lasix 80 mg IVP once tr5 21:57 Drug: Lasix 100 mg Route: IVP; Site: right antecubital; tr5 21:57 Drug: morphine 1 mg {Note: RASS:0.} Route: IVP; Site: right antecubital; tr5 Outcome: 21:42 Decision to Hospitalize by Provider. kb 22:21 Admitted to Med/surg accompanied by tech, via stretcher, with oxygen, Report called to tr5 Philippe BORJA 22:21 Condition: stable 22:21 Instructed on the need for admit. 22:33 Patient left the ED. tr5 Signatures: Madiha Man, JOSUE-Miguel WINDING MACHINE OPERATOR-Jordyn Ara Jimenez Martha mh1 El Lopez, JONH RN mg2 Noel Torres 3 Yesika Ambriz RN RN ca1 Marcial Quiles RN RN tr5 Corrections: (The following items were deleted from the chart) 20:14 20:11 Presenting complaint: Child states: shortness of breath started about an hour ca1 ago. She had previous SOB but not that warrants a hospital visit. She is a dialysis pt with schedules of M,W,F. Last dialysis was yesterday. C/O R shoulder pain at this time but reports to be sustained from a fall long time ago. Denies, fever, coughing and congestion. ca1
--- NOTE | 2019-02-15 21:43 | EDPHYS ---
Physician Documentation [facility] Name: Erendira Graham Age: 88 yrs Sex: Female : 1930 Arrival Date: 02/15/2019 Time: 19:59 Bed 28 Private MD: ED Physician Jameson Soares HPI: 02/15 20:07 This 88 yrs old Black Female presents to ER via Unassigned with complaints of Shortness kb Of Breath. 20:07 The patient has shortness of breath at rest. Onset: The symptoms/episode began/occurred kb 1 hour(s) ago. Duration: The symptoms are continuous, and are unchanged since they started. The patient's shortness of breath is aggravated by exertion, is alleviated by nothing. Associated signs and symptoms: The patient has no apparent associated signs or symptoms. Severity of symptoms: At their worst the symptoms were moderate 1 hour(s) ago, in the emergency department the symptoms are unchanged. The patient has experienced similar episodes in the past, several times. The patient has not recently seen a physician. Family states pt started getting short of breath one hour ago. States she has episodes of shortness of breath every now and then but it only gets bad enough to come to the ER every once in a while. Pt has dialysis M-W- and completed dialysis yesterday. . Historical: - Allergies: 21:37 Karlene; tr5 21:37 Bactrim; tr5 21:37 Ciprofloxacin; tr5 21:37 Demerol; tr5 21:37 PENICILLINS; tr5 21:37 Talwin; tr5 21:37 tequin; tr5 - Home Meds: 21:37 acetaminophen-codeine 300-30 mg Oral tab 1 tab as needed for Pain [Active]; aspirin 81 tr5 mg Oral TbEC 1 tab once daily [Active]; clonidine HCl 0.3 mg Oral tab 1 tab 2 times per day [Active]; DIALYVITE 800 0.8 mg Oral tab [Active]; docusate sodium 100 mg Oral tab 2 times per day [Active]; doxazosin 8 mg Oral tab twice a day [Active]; hydralazine 100 mg Oral tab 3 times per day [Active]; isosorbide mononitrate 30 mg Oral Tb24 twice a day [Active]; melatonin 5 mg Oral tab nightly [Active]; minoxidil 2.5 mg Oral tab 1 tabs 2 times per day [Active]; nifedipine 90 mg Oral TbER twice a day [Active]; Plavix 75 mg Oral tab 1 tab once daily [Active]; sertraline 50 mg Oral tab 1 tab once daily [Active]; Tums 300 mg (750 mg) Oral chew [Active]; Vitamin D Oral 5000 unit daily [Active]; - PMHx: 21:37 CHF; Diabetes - NIDDM; Dialysis; ESRD; Hypertension; tr5 - PSHx: 21:37 None; tr5 - Immunization history:: Adult Immunizations up to date. - Social history:: Smoking status: unknown. - Ebola Screening: : No symptoms or risks identified at this time. ROS: 20:07 Constitutional: Negative for fever, chills, and weight loss, ENT: Negative for injury, kb pain, and discharge, Neck: Negative for injury, pain, and swelling, Cardiovascular: Negative for chest pain, palpitations, and edema, Abdomen/GI: Negative for abdominal pain, nausea, vomiting, diarrhea, and constipation, Back: Negative for injury and pain, MS/Extremity: Negative for injury and deformity, Skin: Negative for injury, rash, and discoloration, Neuro: Negative for headache, weakness, numbness, tingling, and seizure. 20:07 Respiratory: Positive for dyspnea on exertion, shortness of breath, at rest. Exam: 20:07 Constitutional: This is a well developed, well nourished patient who is awake, alert, kb and in no acute distress. Head/Face: Normocephalic, atraumatic. Neck: Trachea midline, no thyromegaly or masses palpated, and no cervical lymphadenopathy. Supple, full range of motion without nuchal rigidity, or vertebral point tenderness. No Meningismus. Chest/axilla: Normal chest wall appearance and motion. Nontender with no deformity. No lesions are appreciated. Cardiovascular: Regular rate and rhythm with a normal S1 and S2. No gallops, murmurs, or rubs. Normal PMI, no JVD. No pulse deficits. Abdomen/GI: Soft, non-tender, with normal bowel sounds. No distension or tympany. No guarding or rebound. No evidence of tenderness throughout. Back: No spinal tenderness. No costovertebral tenderness. Full range of motion. Skin: Warm, dry with normal turgor. Normal color with no rashes, no lesions, and no evidence of cellulitis. MS/ Extremity: Pulses equal, no cyanosis. Neurovascular intact. Full, normal range of motion. Neuro: Awake and alert, GCS 15, oriented to person, place, time, and situation. Cranial nerves II-XII grossly intact. Motor strength 5/5 in all extremities. Sensory grossly intact. Cerebellar exam normal. Normal gait. 20:07 Respiratory: mild respiratory distress is noted, Respirations: labored breathing, that is mild, tachypnea, 32 Breath sounds: decreased breath sounds, that are mild, are located in both bases. Vital Signs: 20:11 BP 169 / 49; Pulse 75; Resp 32; Temp 98.5(O); Pulse Ox 80% on R/A; Weight 77.11 kg (R); ca1 Height 5 ft. 5 in. (165.10 cm) (R); Pain 8/10; 20:15 Pulse Ox 91% on 3 lpm NC; ca1 21:30 BP 147 / 93; Pulse 82; Resp 18; Pulse Ox 99% on 2 lpm NC; tr5 20:11 Body Mass Index 28.29 (77.11 kg, 165.10 cm) ca1 MDM: 20:02 Patient medically screened. kb 20:11 Data reviewed: vital signs, nurses notes. kb 20:16 Data interpreted: Pulse oximetry: on room air is 80 %. Interpretation: hypoxia. Plan: kb O2 by NC applied. ED course: Pt 96% on 3L/min NC. 21:39 Counseling: I had a detailed discussion with the patient and/or guardian regarding: the kb historical points, exam findings, and any diagnostic results supporting the discharge/admit diagnosis, lab results, radiology results, the need for further work-up and treatment in the hospital. Physician consultation: Brittanie Reyes MD was contacted at 21:39, regarding consult, patient's condition, and will see patient in inpatient room, wants lasix 80mg IV now, continue O2 per NC to keep sat >90%, and dialysis in the morning. 21:40 Physician consultation: Yulissa Trinidad MD was contacted at 21:40, regarding admission, kb to the telemetry unit. patient's condition, in the emergency department to see patient at 21:40, changed order to 100mg lasix IV now. 02/15 20:06 Order name: Basic Metabolic Panel kb 02/15 20:06 Order name: CBC with Diff kb 02/15 20:06 Order name: LFT's kb 02/15 20:06 Order name: Magnesium kb 02/15 20:06 Order name: NT PRO-BNP kb 02/15 20:06 Order name: PT-INR kb 02/15 20:06 Order name: Troponin (emerg Dept Use Only) kb 02/15 20:53 Order name: Protime (+INR); Complete Time: 20:59 EDMS 02/15 20:53 Order name: CBC with Automated Diff; Complete Time: 20:59 EDMS 02/15 21:08 Order name: Basic Metabolic Panel; Complete Time: 21:14 EDMS 02/15 21:08 Order name: Liver (Hepatic) Function; Complete Time: 21:14 EDMS 02/15 21:08 Order name: Troponin (Emerg Dept Use Only); Complete Time: 21:14 EDMS 02/15 21:08 Order name: NT PRO-BNP; Complete Time: 21:14 EDMS 02/15 21:08 Order name: Magnesium; Complete Time: 21:14 EDMS 02/15 20:06 Order name: XRAY Chest (1 view) kb 02/15 20:06 Order name: EKG; Complete Time: 20:07 kb 02/15 20:06 Order name: Cardiac monitoring; Complete Time: 20:24 kb 02/15 20:06 Order name: EKG - Nurse/Tech; Complete Time: 20:24 kb 02/15 20:06 Order name: IV Saline Lock; Complete Time: 20:25 kb 02/15 20:06 Order name: Labs collected and sent; Complete Time: 20:24 kb 02/15 20:06 Order name: O2 Per Protocol; Complete Time: 20:24 kb 02/15 20:06 Order name: O2 Sat Monitoring; Complete Time: 20:24 kb Administered Medications: 21:39 CANCELLED (Physician Discretion): Lasix 80 mg IVP once tr5 21:57 Drug: Lasix 100 mg Route: IVP; Site: right antecubital; tr5 21:57 Drug: morphine 1 mg {Note: RASS:0.} Route: IVP; Site: right antecubital; tr5 Disposition: 23:14 Co-signature as Attending Physician, Jameson Soares MD. pkl Disposition: 02/15/19 21:42 Hospitalization ordered by Yulissa Trinidad for Observation. Preliminary diagnosis are Hypoxia, Pulmonary edema, Unspecified combined systolic (congestive) and diastolic (congestive) heart failure. - Bed requested for Telemetry/MedSurg (observation). - Status is Observation. tr5 - Condition is Fair. - Problem is new. - Symptoms have improved. UTI on Admission? No Signatures: Dispatcher [employer] EDSC Madiha Man, JOSUE-C JOSUE-Jameson Bowen MD MD pkl Lanny Killian, RN RN bb Marcial Quiles RN RN tr5 Corrections: (The following items were deleted from the chart) 20:16 20:07 Respiratory: mild respiratory distress is noted, Respirations: labored breathing, kb that is mild, Breath sounds: decreased breath sounds, that are mild, are located in both bases, kb 21:39 21:35 Lasix 80 mg IVP once ordered. kb tr5 22:09 21:42 Hospitalization Ordered by Yulissa Trinidad MD for Observation. Preliminary bb diagnosis is Hypoxia; Pulmonary edema; Unspecified combined systolic (congestive) and diastolic (congestive) heart failure. Bed requested for Telemetry/MedSurg (observation). Status is Observation. Condition is Fair. Problem is new. Symptoms have improved. UTI on Admission? No. kb 22:33 22:09 02/15/2019 21:42 Hospitalization Ordered by Yulissa Trinidad MD for Observation. tr5 Preliminary diagnosis is Hypoxia; Pulmonary edema; Unspecified combined systolic (congestive) and diastolic (congestive) heart failure. Bed requested for Telemetry/MedSurg (observation). Status is Observation. Condition is Fair. Problem is new. Symptoms have improved. UTI on Admission? No. bb
[2019-02-15] MEDS ORDERED: MORPHINE 2 MG/ML SYR ONE (21:54)
[2019-02-15] MEDS ORDERED: FUROSEMIDE 100 MG/10 ML VIAL IV ONE (21:55)
[2019-02-15] MEDS ORDERED: MORPHINE 2 MG/ML SYR IV PRN (21:59)
[2019-02-15] MEDS ORDERED: ALBUTEROL 2.5 MG/3 ML NEB SOL NEB PRN (21:59)
[2019-02-15] MEDS ORDERED: ONDANSETRON 4 MG/2 ML VIAL IV PRN (21:59)
[2019-02-15] MEDS ORDERED: MELATONIN 5 MG TABLET PO PRN (22:05)
[2019-02-15 22:47] VITALS: BMI 27.8
--- NOTE | 2019-02-15 22:49 | RAD REPORT ---
EXAM DESCRIPTION: Joy Single View02/15/2019 9:05 pm CLINICAL HISTORY: Shortness of breath COMPARISON: December 2018 FINDINGS: [id number] bilateral pulmonary opacities. Small bilateral pleural effusions Heart is mildly to moderately enlarged IMPRESSION: Mild to moderate CHF
--- NOTE | 2019-02-15 22:52 | EKG ---
Test Date: 2019-02-15 Test Time: 20:16:19 Html Web Developer: ROBINA MEASUREMENT RESULTS: Intervals: Rate: 88 NV: QRSD: 94 QT: 370 QTc: 447 [place]: P: NV: QRS: 93 T: 70 INTERPRETIVE STATEMENTS: Atrial fibrillation Rightward axis Septal infarct, age undetermined Abnormal ECG Compared to ECG 01/16/2019 10:26:44 Right-axis deviation now present Sinus rhythm no longer present myocardial infarct finding still present Electronically Signed On 02-15-19 22:51:30 [employer] SPECIALIST by Maksim Glass
[2019-02-15] MEDS: HYDRALAZINE HCL 20 MG/ML VIAL IV PRN (23:25)
--- NOTE | 2019-02-16 00:52 | HP ---
Date of Admission: 02/15/2019 Presenting Complaint: Sudden-onset shortness of breath. History Of Present Illness: Ms. Erendira Graham is an 88-year-old female with past medical history of hypertension, diabetes mellitus, end-stage renal disease, on dialysis Tuesday, , Tuesday. Last dialysis was yesterday. Patient unsure of ultrafiltration volume data. The pat ient denies any problems with dialysis. She states, well post dialysis, she started developing worse mary shortness of breath earlier today, which continued to worsen after the Thanksgiving meal. Patie nt denies any excessive fluid intake. She also admitted to increasing lower extremity swelling that is more prominent over the left leg. She states she was evaluated by her forensic sergeant during dialysi s yesterday for a swollen lesion on her left leg, but was not started on any antibiotics. She denies any cough. Did admit to this shortness of breath. She denies any chest pain. She was started on n [place] cannula O2 after presenting in the ED with O2 saturation of 82%. Her O2 sat on 2 L now has impr liza to 97%. She complained of generalized body aches. She also complained of pain over the sacral area from a previous sacral decubitus. She denies any headache or dizziness. Past Medical History: Hypertension, diabetes mellitus that is diet controlled. End-stage renal dise ase, on HD M/W/, follows at the [facility]. History of depression, history of aortic malik nosis, history of CHF, history of hyperlipidemia, history of renal artery stenosis. Patient denies h istory of coronary artery disease, although seen in previous record. Surgical History: Right renal artery stent, left carotid artery repair, left AV fistula, hysterectom y, appendectomy. Social History: She resides in the community with the daughter. She is functional at home, although has been requiring assistance with ambulation with the aid of a cane. She denies any tobacco, alcoh ol, or illicit drug use. Family History: Significant for coronary artery disease. Allergies: CIPRO, FEXOFENADINE, GATIFLOXACIN, PENICILLIN, AND PENTAZOCINE. Review of Systems: All systems reviewed x14 were negative except for pain over the left leg from area of fluid collectio n. Physical Examination: Current Vital Signs: Blood pressure of 165/100, pulse of 78, respiratory rate of 22, O2 saturation o f 97% on 2 L nasal cannula. Temperature afebrile at 98.6. General: An elderly female, slightly overweight, in mild pain distress. In bed, no respiratory dist ress. HEENT: Head is atraumatic, normocephalic. Marked periorbital edema noted. Pupils equal and reactiv e to light. Anicteric, with pink conjunctivae. Moist oral mucosa, albeit no mucosal patches. Neck: No JVD. No carotid bruit. Respiratory: Coarse crepitation at bilateral bases, but no wheeze or rhonchi. Cardiovascular: S1, S2. Regular and not tachycardic. GI: Abdomen full, soft, nontender. Bowel sounds positive. Extremities: 1+ pedal edema bilaterally, more prominent over the left lower extremity. Notable circ ular area of tender, erythematous subcutaneus collection over the distal one-third of the left chang. The lesion is tender to touch. No calf tenderness bilaterally. Neuro: Patient is alert, conversant. Laboratory Data: Hemoglobin 8.4, WBC 7.1, platelets 163. INR 1.19. Sodium 135, potassium 4, bicarb 33, BUN 16, creatinine 4.1. AST and alkaline phosphatase normal. ProBNP of 29,705, albumin 3.3, ma gnesium 2.2. Chest x-ray shows mild pulmonary congestive changes. Images reviewed by me. Chest x-ray shows cardi omegaly with significant pulmonary congestive changes. Bilateral pleural effusion noted, moderate pl eural effusion on the right and mild pleural effusion on the left. Images independently reviewed by me. Official read is pending. EKG shows multifocal atrial tachycardia pattern with no ST-segment changes. Mild left ventricular hy pertrophy with strain pattern. Impression: 1.Acute pulmonary edema, due to congestive heart failure and end-stage renal disease. 2.Presumed diastolic congestive heart failure. 3.End-stage renal disease, on hemodialysis. 4.Hypertension, uncontrolled. 5.Diabetes, diet controlled. 6.Left lower extremity subcutaneus abscess. 7.Chronic sacral decubitus. Plan: 1.Acute pulmonary edema, likely due to combined congestive heart failure ultrafiltration in dialysis. Given the patient still makes a small amount of urine, we will give IV Lasix 100 mg x1 now. We will also dose morphine IV to alleviate the dyspnea. Continue nasal cannula O2. If recorde d low oxygen saturation, we will start patient on BiPAP. We will consult Nephrology stat for urgent dialysis in a.m. 2.Hypertension. We will continue home medication. We will give IV hydralazine p.r.n. 3.History of CHF. Noticed previous echo 3 years ago with EF of 75%. No need for repeat echo at thi s time. 4.Diabetes mellitus. We will do insulin sliding scale. 5.Left leg subcutaneous collection, lesion range of about 4 x 6 cm. We will start empirical antibio tics with Rocephin for now. 6.Sacral decubitus. We will consult Wound Care while in the hospital. 7.DVT prophylaxis. Subcutaneous heparin q.12. 8.Advanced directive discussed with patient and she wishes to be full code. Total time spent in review of record, discussion with the patient and evaluation was greater than 60 minutes. Daughter at bedside discussed with. SUSAN/MELISSA Voice ID: [id number]
[2019-02-16] MEDS ORDERED: CEFTRIAXONE/SWI 1gm 1 GM/10 ML SYR IV SCH (01:00)
[2019-02-16 05:49] LABS: Absolute Lymphocytes (CBC) 0.9 K/uL (0.7-4.9); Basophils % 1.1 % (0-1.3); Lymphocytes % 11.2 % (15.3-44.8); MPV 8.5 fL (7.6-11.3); RBC Red Blood Cell Count 2.42 M/uL (3.86-4.86)
[2019-02-16 06:03] LABS: Albumin 2.8 g/dL (3.4-5.0); Bilirubin Total 0.6 mg/dL (0.2-1.0); Potassium 3.9 mmol/L (3.5-5.1); Protein, Total 6.3 g/dL (6.4-8.2)
[2019-02-16] MEDS: HYDRALAZINE HCL 20 MG/ML VIAL IV PRN ×3 (06:31→12:00)
[2019-02-16] MEDS: INSULIN -REGULAR HUMAN 50 UNIT/0.5 ML ML SQ SCH ×2 (07:30→11:30)
[2019-02-16 07:37] LABS: Blood Morphology Comment NOT SEEN (NOT SEEN); Platelet Estimate DECR; Urine White Blood Cell Casts OK
--- NOTE | 2019-02-16 08:32 | RAD REPORT ---
EXAM DESCRIPTION: CT - Head Brain Wo Cont - 02/16/2019 7:48 am CLINICAL HISTORY: Alteration of awareness/confusion COMPARISON: None TECHNIQUE: Computed axial tomography of the head was obtained. IV contrast was not requested. All CT scans are performed using dose optimization technique as appropriate and may include automated exposure control or mA/KV adjustment according to patient size. FINDINGS: Images are degraded by patient motion artifact An intracranial bleed is not seen . The ventricles are normal in caliber. No extra-axial fluid collection is noted. Mild low-density areas within periventricular, deep and subcortical white matter likely represent isc hemic changes secondary to small vessel disease. Fluid within the sinuses/ mastoids is not seen. IMPRESSION: No acute intracranial abnormality is seen. If patient's symptoms persist MRI of the bra in would be recommended.
[2019-02-16] MEDS ORDERED: CEFTRIAXONE 1 GM/NS 50 ML 1 GM/50 ML BAG IV SCH (09:00)
[2019-02-16] MEDS ORDERED: HYDRALAZINE HCL 25 MG TABLET PO SCH (09:00)
[2019-02-16] MEDS ORDERED: ASPIRIN 81 MG CHEWABLE TABLET PO SCH (09:00)
[2019-02-16] MEDS ORDERED: CALCIUM CARBONATE CHEW 500MG TAB PO SCH (09:00)
[2019-02-16] MEDS ORDERED: HEPARIN 5000 UNIT/ML 1 ML VIAL SQ SCH (09:00)
[2019-02-16] MEDS ORDERED: ISOSORBIDE MONO SR 30 MG TAB PO SCH (09:00)
[2019-02-16] MEDS ORDERED: CLOPIDOGREL 75 MG TABLET PO SCH (09:00)
[2019-02-16] MEDS ORDERED: HOME MED 1 EA UNK (Nifedipine [Nifedipine Er] 90 MG) PO SCH (09:00)
[2019-02-16] MEDS ORDERED: HYDRALAZINE HCL 20 MG/ML VIAL IV ONE ×2 (09:30→10:50)
--- NOTE | 2019-02-16 09:37 | P.CNS ---
Date of Consult: 02/16/19 History of Present Illness: dm/htn/esrd patient seen/examined. patient has a facial droop that is apparantly new. she is however alert and able to answer questions. breathing seems ok on oxygen. says her name and knew that she was in [facility]. discussed with Dr. Lucas (hospatalist). patient may get transferred out for stroke management. she was last dialyzed on tuesday. cxray is reported to shows congestion. vs stable. sbp 160-170. o2 sats are ok in mid 90s on 2-3 litres nasal canula. lungs air entry b/l . few crackles at very basis [facility] regular abd soft ext trace edema (left >rt) facial droop but alert. fam hx: non contributory meds reviewed. allergies: reviewed a/p: esrd/last dialysis was tuesday as per patient/dm, htn/? stroke/vs ok and patient alert currently. plan to start dialysis as soon nurse/machine is ready. goal would be to improve patient's volume status. keep oxygen going to keep o2 sats above 92. bp is on higher side, but given possibility of stroke, allow a higher bp. should improve some with dialysis and gentle uf. dialysis nurse to monitor. Dr. Lucas considering TPA along with consultation with neurology. may not qualify for tpa or family may not consent. patient may get transferred out for stroke care but staff not clear how long that process/acceptance by other team at accepting hospital etc., will take. I would have considered allowing dialysis just after transfer, but given no clarity about timing of transfer would start dialysis while patient awaiting possibility of tranferring. assessed patient carefully and would dialyze her right now with gentle uf 2-2.5 litre uf /over 3 hours planned. will give dose of michell. if patient needs immediate transfer, will stop dialysis and let her transfer. if we dont start dialysis may not be able to get for few hours or so, depending on dialysis availability and transfer timing. Research Dietitian to closely monitor for any change in condition and stop and allow transfer as needed per/by primary team. primary team is reviewing with patient's family, risks with TPA given her age of 88, hg of 7.7 and evaluating the window of TPA. obviously will defer that decision to family/primary team/neurology. 950am: spoke with Adelaida (patient's daughter). she is not sure if she would want tpa. if she needs tpa, may need further CT scanning and evaluation of no active bleed; for which dialysis would have to be delayed. also the window for tpa may close while daughter is able to decide. Daughter is on her way. risks / benefits of delaying dialysis counseled. she has mild sob, but ok on oxygen. no significant edema, and is able to talk in full sentences on my exam. potassium is ok. if she is not going to get tpa and wont be tranferred for few hours, would like her to get ultrafiltration (fluid removal) with dialysis to improve her volume status. patient has gone to dialysis room for treatment already, hospitalist is at Nurse's station waiting for the daughter (Adelaida) to come in. Allergies ciprofloxacin Allergy (Verified 02/15/19 22:51) Rash fexofenadine Allergy (Verified 02/15/19 22:51) Rash gatifloxacin Allergy (Verified 02/15/19 22:51) Hives/Rash Penicillins Allergy (Verified 02/15/19 22:51) Hives/Rash pentazocine [From Talwin] Allergy (Verified 02/15/19 22:51) Unknown Home Medications: Acetaminophen [Tylenol Extra Strength] 500 mg PO Q4H PRN 04/17/18 Aspirin 81 mg PO DAILY 04/17/18 Calcium Carbonate [Tums Regular*] 500 mg PO BID 04/17/18 Cholecalciferol (Vitamin D3) [Vitamin D3] 5,000 unit PO BEDTIME 04/17/18 Clopidogrel Bisulfate [Plavix*] 75 mg PO DAILY 04/17/18 Docusate [Colace Cap*] 100 mg PO BID 04/17/18 Doxazosin Mesylate 8 mg PO BID 04/17/18 Folic Acid/Vit B Complex and C [Dialyvite 800 Chewable Wafer] 1 tab PO DAILY Hydralazine HCl [Apresoline] 100 mg PO BID 04/17/18 Isosorbide Mononitrate [Isosorbide Mononitrate ER] 90 mg PO DAILY 04/17/18 Melatonin 5 mg PO BEDTIME PRN PRN 04/17/18 Nifedipine [Nifedipine ER] 90 mg PO BID 04/17/18 Ramipril [Altace] 10 mg PO BEDTIME 04/17/18 Sertraline [Zoloft*] 50 mg PO BEDTIME 04/17/18 B12/Levomefolate Calcium/B-6 [Foltx Tablet] 1,000 mcg PO DAILY 01/16/19 Atorvastatin Calcium [Lipitor] 40 mg PO BEDTIME 02/15/19 traMADol HCL [Ultram*] 50 mg PO Q6HP PRN 02/15/19 - Past Medical/Surgical History Diabetic: Yes -: DEPRESSION -: CHRONIC KIDNEY DISEASE ON HD -: CAD -: MALIGNANT HYPERTENSION -: HYPERLIPIDEMIA -: AORTIC STENOSIS -: RENAL ARTERY STENOSIS -: DM -: CHF -: ESRD -: STENT PLACEMENT -: gall bladder removed -: R kidney stent placement -: cataract bilateral repair -: left carotid artery repair. -: left AVF -: hysterectomy -: appendectomy - Family History Sister Medical History: Heart disease Brother Medical History: Heart disease, Cancer - Social History Smoking Status: Unknown if ever smoked Alcohol use: No CD- Drugs: Yes Caffeine use: Yes Place of Residence: Home Physical Examination Temp Pulse Resp BP Pulse Ox 97.3 F 80 18 172/88 H 97 02/16/19 04:00 02/16/19 04:00 02/16/19 04:00 02/16/19 04:00 02/16/19 04:00 Laboratory Data (last 24 hrs) 02/15/19 20:40: PT 14.0 H, INR 1.19 02/15/19 20:40: WBC 7.1, Hgb 8.4 L, Hct 25.3 L, Plt Count 163 02/15/19 20:40: Sodium 135 L, Potassium 4.0, BUN 16, Creatinine 4.17 H, Glucose 117 H, Magnesium 2.2, Total Bilirubin 0.8, AST 27, ALT 25, Alkaline Phosphatase 121 H
--- NOTE | 2019-02-16 10:35 | P.PN ---
Subjective Date of Service: 02/16/19 Chief Complaint: ? stroke/esrd patient seen on dialysis. got few minutes treatment with left av fistula. patient needed to be taken off as neurology recommending TPA. Daughter (Adelaida) gave consent for TPA. Risks of bleeding/ were reviewed by hospitalist with patient's daughter. plan is to consider tranferring patient out to higher level of care for stroke monitoring/treatment. patient currently looks improved with droop also improved. patient will be given tpa in icu and monitored there. so she is being taken off dialysis to transfer to icu. plan is to dialyze her post tranfer to icu to complete 3.5 hours and uf of about 2.5 litres with monitoring in icu. breathing on my exam seems stable. o2 sats in mid 90s with about 2 litres of nc oxygen. patient is alert/comfortable. plan reviewed with card folder (Rin). also daughter and hospitalist by the bedside. hydralazine iv given to patient, sbp was up to 200, but now improved at 170 systolic. Physical Examination - Vital Signs Temperature: 98.5 F Blood Pressure: 176/69 Pulse: 82 Respirations: 20 Pulse Ox (%): 96 - Studies Laboratory Data (last 24 hrs) 02/15/19 20:40: PT 14.0 H, INR 1.19 02/15/19 20:40: WBC 7.1, Hgb 8.4 L, Hct 25.3 L, Plt Count 163 02/15/19 20:40: Sodium 135 L, Potassium 4.0, BUN 16, Creatinine 4.17 H, Glucose 117 H, Magnesium 2.2, Total Bilirubin 0.8, AST 27, ALT 25, Alkaline Phosphatase 121 H
[2019-02-16] MEDS ORDERED: NA CHLORIDE 0.9% 50 ML ONE (10:50)
--- NOTE | 2019-02-16 10:58 | P.PN ---
Date of Service: 02/16/19 When patient was seen she had a facial droop and patient was taken directly for CT scan of the head for code stroke blood sugar was 74. NIH scale was 10. CT scan did not show any bleed. [facility] is italic was contacted for neurology however on-call did not answer received a call back later on. Spoke with neurologist at transfer Center [facility] recommended t-PA. Blood pressure improved to 160s to 170s. Discuss with daughter who agrees with the tPA. Patient has relative contraindications including age greater than 80 as well as low hemoglobin however neurologist strongly feels the benefit. Daughter understands the risks of bleeding including intracranial hemorrhage and worsening stroke. She agrees proceed. Neurologist at [facility] requesting CT angio of head and neck to rule out major vessel blockage in order to determine whether interventional neuro surgeon and activation of semiconductor lab technician needs to be done prior to transfer for thrombectomy.
[2019-02-16] MEDS ORDERED: ALTEPLASE IV ONE (11:00)
[2019-02-16] MEDS ORDERED: ALTEPLASE 1 MG/ML *Bolus for stroke orders only IV ONE ×2 (11:00→11:50)
[2019-02-16] MEDS ORDERED: LABETALOL 20 MG/4ML SYRINGE IV ONE ×2 (11:50→13:13)
[2019-02-16] MEDS ORDERED: HYDRALAZINE HCL 20 MG/ML VIAL IV PRN (11:50)
--- NOTE | 2019-02-16 13:13 | RAD REPORT ---
EXAM DESCRIPTION: CT - Head angio - 02/16/2019 12:59 pm CLINICAL HISTORY: Acute CVA, rule out major vessel blockage TECHNIQUE: During dynamic enhancement using nonionic IV contrast, axial 1 millimeter thick images of the head were obtained. Sagittal and axial reconstruction images were generated using MIP technique and reviewed. All CT scans are performed using dose optimization technique as appropriate and may include automated exposure control or mA/KV adjustment according to patient size. FINDINGS: No aneurysm or vascular malformation identified. Major venous sinuses are patent. Anterior cerebral artery show no suspicious findings. No acute finding in the [place]. The b ilateral middle cerebral artery distributions are more difficult to assess due to motion. No named br anch occlusion, significant stenosis or significant vasculitis changes identifiable. No significant p osterior cerebral artery finding seen. IMPRESSION: Motion degraded CT angio head examination shows no significant finding.
[2019-02-16] MEDS ORDERED: MORPHINE 2 MG/ML SYR IV ONE (13:15)
[2019-02-16] MEDS: LABETALOL 20 MG/4ML SYRINGE IV ONE ×2 (13:15→13:45)
--- NOTE | 2019-02-16 13:16 | RAD REPORT ---
EXAM DESCRIPTION: CT - Neck Angio - 02/16/2019 12:59 pm CLINICAL HISTORY: Acute CVA, rule out major vessel blockage TECHNIQUE: During dynamic enhancement using nonionic IV contrast, axial 2 mm thick images of the nec k were obtained. Sagittal and axial reconstruction images were generated using MIP technique and revi ewed. All CT scans are performed using dose optimization technique as appropriate and may include automated exposure control or mA/KV adjustment according to patient size. COMPARISON: CT head same date, CT angio head same date FINDINGS: Motion degradation limitations are present on this exam. No aneurysm or vascular malformation identified. No carotid or vertebral dissection. No aortic arch or great vessel origin abnormality seen. Vertebral artery origins unremarkable as well . No stenosis, vasculitis or other significant carotid artery finding. No focal abnormality of either vertebral artery. Basilar artery is normal. IMPRESSION: Motion degraded study shows no significant CT angio neck abnormality.
[2019-02-16] MEDS ORDERED: ISOSORBIDE MONO SR 30 MG TAB PO ONE (13:35)
[2019-02-16] MEDS ORDERED: HYDRALAZINE HCL 25 MG TABLET ONE (13:35)
[2019-02-16 13:52] VITALS: TEMP 99
[2019-02-16] MEDS ORDERED: Nicardipine/NS 25 MG/250 ML KIT IV ONE (15:01)
[2019-02-16 15:04] VITALS: BP 179/55
[2019-02-16 16:29] VITALS: O2SAT 94
[2019-02-16] MEDS ORDERED: RAMIPRIL 5 MG CAP PO SCH (21:00)
[2019-02-16] MEDS ORDERED: DOXAZOSIN 4 MG TAB PO SCH (21:00)
[2019-02-16] MEDS ORDERED: SERTRALINE HCL 50 MG TAB PO SCH (21:00)
[2019-02-16] MEDS ORDERED: ATORVASTATIN 80 MG TAB PO SCH ×2 (21:00)
[2019-02-16] MEDS ORDERED: ATORVASTATIN 40 MG TAB PO SCH (21:00)
--- NOTE | 2019-02-16 22:48 | DS ---
Date of Discharge: 02/16/2019 Consultants: Dr. Reyes with Nephrology. Dr. Worrell neurology Code status: The daughter is the power of steam powerplant supervisor, full code. Admitting Diagnoses: 1. Acute pulmonary edema. 2. Essential hypertension. 3. Congestive heart failure, diastolic dysfunction, chronic. 4. Diabetes mellitus type 2, tvv-plyvjqj-zegqssvmo with hyperglycemia. 5. Left leg subcutaneous collection lesion about 4 x 6 cm. 6. Sacral decubitus ulcer. Hospital Course: Patient is an 88-year-old female on dialysis, has high blood pressure, diabetes, aortic stenosis, CHF and renal artery stenosis and coronary artery disease. Patient comes in with shortness of breath. Patient was scheduled for dialysis this morning. Her senior software tester has been consulted. Patient was hypoxic with O2 saturations of 82%, requiring supplemental oxygen. Patient was found to be last well at 6:30 a.m. subsequently seen by me around 7: 00 a.m., found to have right-sided facial droop, was nonresponsive, confused, not following commands appropriately. Blood sugar was 74. Code stroke was called. Patient was taken down for the CAT scan emergently. Results of the CAT scan showed no acute hemorrhage and no acute CVA. [facility], Neurology was consulted. Initially, the on-call doctor was unable to be reached by the transfer center, 20-[address] Huynh, back up on-call for Neurology called back and he recommended tPA as the patient was within the timeframe/ window of onset of symptoms. Her NIH Stroke Scale was 10. The patient was taken for dialysis emergently while daughter who is the medical power of steam powerplant supervisor was waiting to make a decision. She wished to see the patient first and discuss further with myself and Dr. Reyes. We explained to her multiple times over the phone that time is of the essence, she needs to make a decision for tPA. The experts at [facility] including the neurologist, are recommending tPA including Dr. Huynh as well as the on-call neurologist, who I spoke with later on. The patient does have some relative contraindications including age greater than 80, low hemoglobin, and elevated blood pressure, which was slightly above 180s, did go as high as 200s, was able to be controlled with IV medications while we were awaiting decision by the daughter. Patient was initiated on dialysis. Once the daughter arrived and agreed to tPA after understanding the risks including a chance for fatal hemorrhage, brain bleed, worsening stroke, among other complication versus the benefits, the patient's medical power of steam powerplant supervisor, the daughter, agreed to proceed with tPA. Patient was moved to the ICU. TPA was given within the 4.5-hour extended window. NIH Stroke Scale was repeated. Patient overall did well. She did have pnleyifrp-ad-nchhvcf blood pressure, however, responded to hydralazine and labetalol. federal agent neurologist at [facility] requested imaging study to rule out major vessel stenosis prior to transfer. The studies were requested to triage patient to either neuro ICU if negative or distillery laborer for intervention if possible. Transfer Center was called back after CT angio report was read to rule out any sort of major vessel blockage or any aneurysm. Once the studies were negative, the patient was accepted directly to the Neurologic ICU and will not need to go to the neuro distillery laborer for thrombectomy. Patient was then life flighted to [facility]. Case was also discussed with Dr. Reyes. Patient will need to complete dialysis for today's session within [address] angio due to contrast. Patient was then life flighted to [facility] in a serious condition. Total time spent transferring the patient was 49 minutes. Physical Examination: General: Awake, alert, and oriented, elderly female, in moderate distress. CV: S1, S2. Respiratory: Diminished breath sounds, crackles present, tachypneic. Use of accessory muscles. Gastrointestinal: Abdomen is soft, nontender, nondistended. Positive bowel sounds. Extremities: No clubbing, cyanosis. Patient has edema. Neuro: The patient is confused, has right-sided facial droop, drift in the right arm. Overall guarded prognosis. SA/MODL Voice ID: [id number] Report ID: [id number] [id number]
== END 2019-02-16 15:15 | disposition short-term general hospital (02) | DRG 64 ==
LOC: ER 19:58 → 2ND 22:00 → 3RD-ICU 02-16 10:35 → OBSVTOIN 02-16 14:19
PROVIDERS: ADMIT Internal Medicine; ATTEND Family Medicine
DX: I63.9 Cerebral infarction, unspecified (principal); I50.33 Acute on chronic diastolic (congestive) heart failure; N18.6 End stage renal disease; I13.2 Hypertensive heart and chronic kidney disease with heart failure and with stage 5 chronic kidney disease, or end stage renal disease; L02.416 Cutaneous abscess of left lower limb; E11.22 Type 2 diabetes mellitus with diabetic chronic kidney disease; E11.65 Type 2 diabetes mellitus with hyperglycemia; I35.0 Nonrheumatic aortic (valve) stenosis; E78.5 Hyperlipidemia, unspecified; I25.10 Atherosclerotic heart disease of native coronary artery without angina pectoris; R29.710 NIHSS score 10; L89.150 Pressure ulcer of sacral region, unstageable; Z99.2 Dependence on renal dialysis
CPT/HCPCS: 36415; 70450; 70496; 70498; 71045; 80048; 80053; 80061; 80076; 82947; 83735; 83880; 84484; 85025; 85610; 90935; 93005; 96374; 96375; 99285; G0378; J0360; J0696; J2270; J2997; Q9967

== ENCOUNTER 2019-05-11 10:05 | Emergency (ER) | payer OTHER ==
--- OUTSIDE RECORDS SUMMARY | 2019-05-11 10:08 | XMS REPORT ---
:1930 [facility] Address [address] [place] [address] Care Team Providers Name Role Phone KENDRICK HUMPHREYTai Johns Unavailable Unavailable Problems This patient has no known problems. Allergies, Adverse Reactions, Alerts This patient has no known allergies or adverse reactions. Medications This patient has no known medications. Results Test Description Test Time Test Comments Text Results Atomic Results Result Comments WOUND CULTURE + GRAM STAIN 2019-02-19 17:15:00 Test Item Value Reference Range Comments CULTURE (BEAKER) (test qhsi=7535) No growth GRAM STAIN RESULT (BEAKER) (test jykj=1468) <1+ WBCs GRAM STAIN RESULT (BEAKER) (test gouv=86800) No organisms seen POCT-GLUCOSE [id number] 12:10:00 Test Item Value Reference Range Comments POC-GLUCOSE METER (BEAKER) 77 mg/dL 70-110 : TESTED AT [facility] [address] [facility] (test jgrg=7891) [facility], [address]: Manufacturing Finance Manager/Machining Supervisor [id number] for Erickson Berrios CBC W/PLT COUNT & AUTO [id number] 05:11:00 Test Item Value Reference Range Comments WHITE BLOOD CELL COUNT (BEAKER) (test nwsq=144) 7.5 K/ L 3.5-10.5 RED BLOOD CELL COUNT (BEAKER) (test ccaf=277) 2.47 M/ L 3.93-5.22 HEMOGLOBIN (BEAKER) (test lywp=180) 7.5 GM/DL 11.2-15.7 HEMATOCRIT (BEAKER) (test jnha=219) 24.6 % 34.1-44.9 MEAN CORPUSCULAR VOLUME (BEAKER) (test fixe=432) 99.6 fL 79.4-94.8 MEAN CORPUSCULAR HEMOGLOBIN (BEAKER) (test 30.4 pg 25.6-32.2 aswu=587) MEAN CORPUSCULAR HEMOGLOBIN CONC (BEAKER) (test 30.5 GM/DL 32.2-35.5 pvcq=209) RED CELL DISTRIBUTION WIDTH (BEAKER) (test 15.3 % 11.7-14.4 romk=437) PLATELET COUNT (BEAKER) (test ycvy=578) 183 K/CU MM 150-450 MEAN PLATELET VOLUME (BEAKER) (test cspj=439) 9.6 fL 9.4-12.3 NUCLEATED RED BLOOD CELLS (BEAKER) (test 0 /100 WBC 0-0 lfer=256) NEUTROPHILS RELATIVE PERCENT (BEAKER) (test 76 % sxzt=057) LYMPHOCYTES RELATIVE PERCENT (BEAKER) (test 15 % befy=283) MONOCYTES RELATIVE PERCENT (BEAKER) (test 5 % wuwj=979) EOSINOPHILS RELATIVE PERCENT (BEAKER) (test 4 % bgeh=991) BASOPHILS RELATIVE PERCENT (BEAKER) (test 0 % iapz=538) NEUTROPHILS ABSOLUTE COUNT (BEAKER) (test 5.70 K/ L 1.56-6.13 xwpf=723) LYMPHOCYTES ABSOLUTE COUNT (BEAKER) (test 1.11 K/ L 1.18-3.74 gglz=562) MONOCYTES ABSOLUTE COUNT (BEAKER) (test 0.39 K/ L 0.24-0.36 hzhu=139) EOSINOPHILS ABSOLUTE COUNT (BEAKER) (test 0.28 K/ L 0.04-0.36 fqrx=642) BASOPHILS ABSOLUTE COUNT (BEAKER) (test 0.02 K/ L 0.01-0.08 mqjm=955) IMMATURE GRANULOCYTES-RELATIVE PERCENT (BEAKER) 0 % 0-1 (test vmnc=6783) POCT-GLUCOSE [id number] 21:01:00 Test Item Value Reference Range Comments POC-GLUCOSE METER (BEAKER) 105 mg/dL 70-110 : TESTED AT [place] [id number] [facility] (test lhwz=6977) [facility], [address]: Manufacturing Finance Manager/Machining Supervisor [id number] for BILL MADRID POCT-GLUCOSE [id number] 21:00:00 Test Item Value Reference Range Comments POC-GLUCOSE METER (BEAKER) 138 mg/dL 70-110 : TESTED AT [facility] [address] [facility] (test qiry=0163) [facility], [address]: Manufacturing Finance Manager/Machining Supervisor [id number] for JENNIFER CHAVARRIA POCT-GLUCOSE [id number] 09:13:00 Test Item Value Reference Range Comments POC-GLUCOSE METER (BEAKER) 77 mg/dL 70-110 : TESTED AT [facility] [address] [facility] (test jzbv=7370) [facility] [address]: Manufacturing Finance Manager/Machining Supervisor [id number] for FELTON NEIL COMPREHENSIVE METABOLIC [id number] 06:33:00 Test Item Value Reference Range Comments TOTAL PROTEIN (BEAKER) 6.2 gm/dL 6.0-8.3 (test xiod=022) ALBUMIN (BEAKER) (test 3.1 g/dL 3.5-5.0 lqvh=0785) ALKALINE PHOSPHATASE 89 U/L 40-150 (BEAKER) (test fasa=397) BILIRUBIN TOTAL (BEAKER) 0.5 mg/dL 0.2-1.2 (test fwsy=988) SODIUM (BEAKER) (test 137 meq/L 136-145 nwqf=243) POTASSIUM (BEAKER) (test 4.4 meq/L 3.5-5.1 cvbo=714) CHLORIDE (BEAKER) (test 101 meq/L 98-107 wyuv=977) CO2 (BEAKER) (test 28 meq/L 22-29 zyvy=262) BLOOD UREA NITROGEN 19 mg/dL 7-21 (BEAKER) (test itqx=485) CREATININE (BEAKER) (test 4.63 mg/dL 0.57-1.25 daes=907) GLUCOSE RANDOM (BEAKER) 75 mg/dL 70-105 (test tgln=875) CALCIUM (BEAKER) (test 8.6 mg/dL 8.4-10.2 xmzv=232) AST (SGOT) (BEAKER) (test 34 U/L 5-34 bewr=815) ALT (SGPT) (BEAKER) (test 21 U/L 6-55 cdeu=479) EGFR (BEAKER) (test 11 mL/min/1.73 sq m ESTIMATED GFR IS NOT qorn=6567) ACCURATE CREATININE CLEARANCE IN PREDICTING GLOMERULAR FILTRATION RATE. ESTIMATED GFR IS NOT APPLICABLE FOR DIALYSIS PATIENTS. CBC W/PLT COUNT & AUTO [id number] 05:46:00 Test Item Value Reference Range Comments WHITE BLOOD CELL COUNT (BEAKER) (test tgmh=368) 6.6 K/ L 3.5-10.5 RED BLOOD CELL COUNT (BEAKER) (test iyyj=760) 2.43 M/ L 3.93-5.22 HEMOGLOBIN (BEAKER) (test ikfx=824) 7.4 GM/DL 11.2-15.7 HEMATOCRIT (BEAKER) (test jgtj=367) 24.4 % 34.1-44.9 MEAN CORPUSCULAR VOLUME (BEAKER) (test dria=275) 100.4 fL 79.4-94.8 MEAN CORPUSCULAR HEMOGLOBIN (BEAKER) (test 30.5 pg 25.6-32.2 pitv=916) MEAN CORPUSCULAR HEMOGLOBIN CONC (BEAKER) (test 30.3 GM/DL 32.2-35.5 afta=063) RED CELL DISTRIBUTION WIDTH (BEAKER) (test 15.4 % 11.7-14.4 skog=060) PLATELET COUNT (BEAKER) (test fhin=152) 171 K/CU MM 150-450 MEAN PLATELET VOLUME (BEAKER) (test ramn=007) 10.2 fL 9.4-12.3 NUCLEATED RED BLOOD CELLS (BEAKER) (test 0 /100 WBC 0-0 ifxd=387) NEUTROPHILS RELATIVE PERCENT (BEAKER) (test 72 % kcnb=609) LYMPHOCYTES RELATIVE PERCENT (BEAKER) (test 17 % uiwo=539) MONOCYTES RELATIVE PERCENT (BEAKER) (test 6 % ayth=878) EOSINOPHILS RELATIVE PERCENT (BEAKER) (test 5 % yvcn=020) BASOPHILS RELATIVE PERCENT (BEAKER) (test 0 % shzh=123) NEUTROPHILS ABSOLUTE COUNT (BEAKER) (test 4.71 K/ L 1.56-6.13 cgiv=106) LYMPHOCYTES ABSOLUTE COUNT (BEAKER) (test 1.08 K/ L 1.18-3.74 cwid=638) MONOCYTES ABSOLUTE COUNT (BEAKER) (test 0.42 K/ L 0.24-0.36 bhrz=720) EOSINOPHILS ABSOLUTE COUNT (BEAKER) (test 0.30 K/ L 0.04-0.36 qgdm=860) BASOPHILS ABSOLUTE COUNT (BEAKER) (test 0.02 K/ L 0.01-0.08 pywy=519) IMMATURE GRANULOCYTES-RELATIVE PERCENT (BEAKER) 0 % 0-1 (test spsn=2439) [id number] 04:27:00 Test Item Value Reference Range Comments RPR SCREEN (BEAKER) (test rnsq=014) Nonreactive Nonreactive POCT-GLUCOSE [id number] 22:54:00 Test Item Value Reference Range Comments POC-GLUCOSE METER (BEAKER) 94 mg/dL 70-110 : TESTED AT [address] (test ousr=0403) [facility], [address]: Manufacturing Finance Manager/Machining Supervisor [id number] for JACKY HAY POCT-GLUCOSE [id number] 18:10:00 Test Item Value Reference Range Comments POC-GLUCOSE METER (BEAKER) 108 mg/dL 70-110 : TESTED AT [address] (test ifaf=4466) [facility], [address]: Manufacturing Finance Manager/Machining Supervisor [id number] for JULISSA RAMON MR, BRAIN, WITHOUT [id number] 16:05:00FINAL REPORT MR, BRAIN, WITHOUT CONTRAST INDICATION: Stroke, follow up TECHNIQUE: Multiplanar, multisequence MR imaging of the brain without intravenous contrast. COMPARISON: None FINDINGS: Intracranial: Generalized cerebral atrophy with ex vacuo dilatation of the ventricular system proportionate to sulci. Scattered foci of T2 prolongation within the periventricular and subcortical white matter are a nonspecific finding commonly attributed to chronic small vessel ischemic disease. No intracranial hemorrhage. No restricted diffusion to suggest acute infarct. No mass effect. No hydrocephalus. Visualized intracranial flow voids are of normal course and caliber. Sinuses: No evidence of sinusitis. Mastoids are clear. Orbits: Globes are intact. Calvarium \T\ scalp: Unremarkable. IMPRESSION:No acute infarct or intracranial hemorrhage. Generalized parenchymal volume loss and chronic microvascular changes, commensurate with age. Signed: Brianna Abraham MDReport Verified Date/Time: 02/17/2019 16:05:48 POCT-GLUCOSE [id number] 12:03:00 Test Item Value Reference Range Comments POC-GLUCOSE METER (BEAKER) 145 mg/dL 70-110 : Notified RN/MD: TESTED AT (test bkkd=1562) [address], [address]: Manufacturing Finance Manager/Machining Supervisor [id number] for JULISSA RAMON URINALYSIS W/ REFLEX URINE [id number] 11:54:00 Test Item Value Reference Range Comments COLOR (BEAKER) (test nzvh=881) Yellow CLARITY (BEAKER) (test xece=404) Hazy SPECIFIC GRAVITY UA (BEAKER) (test tdcp=099) 1.011 1.001-1.035 PH UA (BEAKER) (test fudv=829) 8.5 5.0-8.0 PROTEIN UA (BEAKER) (test uwis=907) 300 mg/dL Negative GLUCOSE UA (BEAKER) (test rbno=444) Negative Negative KETONES UA (BEAKER) (test uhhj=245) Negative Negative BILIRUBIN UA (BEAKER) (test bbvg=100) Negative Negative BLOOD UA (BEAKER) (test icui=158) Trace Negative NITRITE UA (BEAKER) (test gpbo=907) Positive Negative LEUKOCYTE ESTERASE UA (BEAKER) (test hfnm=552) Large Negative UROBILINOGEN UA (BEAKER) (test prbm=731) 0.2 mg/dL 0.2-1.0 RBC UA (BEAKER) (test lebr=020) 9 /HPF WBC UA (BEAKER) (test cytk=826) 24 /HPF BACTERIA (BEAKER) (test yvoz=558) Moderate MUCUS (BEAKER) (test fhzw=8408) Many SQUAMOUS EPITHELIAL (BEAKER) (test unoz=050) 50 /HPF SOURCE(BEAKER) (test oatb=6913) VITAMIN B12 AND [id number] 09:50:00 Test Item Value Reference Range Comments VITAMIN B12 (BEAKER) (test nyjc=272) > pg/mL 213-816 FOLATE (BEAKER) (test qavd=200) 16.5 ng/mL >=7.0 HEMOGLOBIN [id number] 09:03:00 Test Item Value Reference Range Comments HEMOGLOBIN A1C (BEAKER) (test usha=564) 4.3 % 4.3-6.1 HEMOGLOBIN [id number] 06:22:00 Test Item Value Reference Range Comments HEMOGLOBIN A1C (BEAKER) (test snuz=505) 4.3 % 4.3-6.1 COMPREHENSIVE METABOLIC [id number] 05:42:00 Test Item Value Reference Range Comments TOTAL PROTEIN (BEAKER) 6.3 gm/dL 6.0-8.3 (test usnz=711) ALBUMIN (BEAKER) (test 3.2 g/dL 3.5-5.0 syap=9576) ALKALINE PHOSPHATASE 96 U/L 40-150 (BEAKER) (test gjgi=445) BILIRUBIN TOTAL (BEAKER) 0.7 mg/dL 0.2-1.2 (test ddni=481) SODIUM (BEAKER) (test 139 meq/L 136-145 bzha=534) POTASSIUM (BEAKER) (test 4.3 meq/L 3.5-5.1 ipyl=835) CHLORIDE (BEAKER) (test 102 meq/L 98-107 jzem=793) CO2 (BEAKER) (test 29 meq/L 22-29 inca=022) BLOOD UREA NITROGEN 11 mg/dL 7-21 (BEAKER) (test ecwh=412) CREATININE (BEAKER) (test 3.16 mg/dL 0.57-1.25 wzwg=898) GLUCOSE RANDOM (BEAKER) 79 mg/dL 70-105 (test jhvl=086) CALCIUM (BEAKER) (test 8.9 mg/dL 8.4-10.2 hfdd=585) AST (SGOT) (BEAKER) (test 33 U/L 5-34 oqbi=178) ALT (SGPT) (BEAKER) (test 19 U/L 6-55 sipb=348) EGFR (BEAKER) (test 17 mL/min/1.73 sq m ESTIMATED GFR IS NOT irnx=5399) ACCURATE CREATININE CLEARANCE IN PREDICTING GLOMERULAR FILTRATION RATE. ESTIMATED GFR IS NOT APPLICABLE FOR DIALYSIS PATIENTS. FastingLIPID [id number] 05:36:00 Test Item Value Reference Range Comments TRIGLYCERIDES (BEAKER) (test yqwk=970) 61 mg/dL CHOLESTEROL (BEAKER) (test ftyt=442) 104 mg/dL HDL CHOLESTEROL (BEAKER) (test myvz=834) 56 mg/dL LDL CHOLESTEROL CALCULATED (BEAKER) (test 36 mg/dL zknl=370) Triglyceride Reference Range: Low Risk <150 Borderline 150- 199 High Risk 200-499 Very High Risk >=500Cholesterol Reference Range: Low Risk <200 Borderline 200-239 High Risk > 240HDL Cholesterol Reference Range: Low Risk >=60 High Risk <40LDL Cholesterol Reference Range: Optimal <100 Near Optimal 100-129 Borderline 130-159 High 160-189 Very High >=190 FastingCBC W/PLT COUNT & AUTO [id number] 05:04:00 Test Item Value Reference Range Comments WHITE BLOOD CELL COUNT (BEAKER) (test xjou=247) 7.6 K/ L 3.5-10.5 RED BLOOD CELL COUNT (BEAKER) (test zenf=460) 2.42 M/ L 3.93-5.22 HEMOGLOBIN (BEAKER) (test kwuc=907) 7.6 GM/DL 11.2-15.7 HEMATOCRIT (BEAKER) (test djzk=703) 24.5 % 34.1-44.9 MEAN CORPUSCULAR VOLUME (BEAKER) (test itsk=331) 101.2 fL 79.4-94.8 MEAN CORPUSCULAR HEMOGLOBIN (BEAKER) (test 31.4 pg 25.6-32.2 xfug=397) MEAN CORPUSCULAR HEMOGLOBIN CONC (BEAKER) (test 31.0 GM/DL 32.2-35.5 xgiu=506) RED CELL DISTRIBUTION WIDTH (BEAKER) (test 15.5 % 11.7-14.4 zdwv=705) PLATELET COUNT (BEAKER) (test yymn=682) 172 K/CU MM 150-450 MEAN PLATELET VOLUME (BEAKER) (test eqvm=613) 10.3 fL 9.4-12.3 NUCLEATED RED BLOOD CELLS (BEAKER) (test 0 /100 WBC 0-0 tefj=198) NEUTROPHILS RELATIVE PERCENT (BEAKER) (test 82 % vqee=188) LYMPHOCYTES RELATIVE PERCENT (BEAKER) (test 11 % sddo=849) MONOCYTES RELATIVE PERCENT (BEAKER) (test 5 % rxrl=595) EOSINOPHILS RELATIVE PERCENT (BEAKER) (test 2 % pagb=478) BASOPHILS RELATIVE PERCENT (BEAKER) (test 1 % ajmw=049) NEUTROPHILS ABSOLUTE COUNT (BEAKER) (test 6.16 K/ L 1.56-6.13 mrou=909) LYMPHOCYTES ABSOLUTE COUNT (BEAKER) (test 0.80 K/ L 1.18-3.74 ieec=074) MONOCYTES ABSOLUTE COUNT (BEAKER) (test 0.40 K/ L 0.24-0.36 qyye=640) EOSINOPHILS ABSOLUTE COUNT (BEAKER) (test 0.13 K/ L 0.04-0.36 gfss=856) BASOPHILS ABSOLUTE COUNT (BEAKER) (test 0.04 K/ L 0.01-0.08 dept=952) IMMATURE GRANULOCYTES-RELATIVE PERCENT (BEAKER) 0 % 0-1 (test qukw=1078) POCT-GLUCOSE [id number] 00:21:00 Test Item Value Reference Range Comments POC-GLUCOSE METER (BEAKER) 92 mg/dL 70-110 : TESTED AT [facility] [address] [facility] (test ojfl=4141) [facility], [address]: Manufacturing Finance Manager/Machining Supervisor [id number] for Kirstie Hyde HEPATITIS B SURFACE [id number] 20:43:00 Test Item Value Reference Range Comments HEPATITIS B SURFACE ANTIGEN (2) (BEAKER) (test Nonreactive Nonreactive uail=2717) HEPATITIS C [id number] 20:43:00 Test Item Value Reference Range Comments HEPATITIS C ANTIBODY (BEAKER) (test dtpm=449) Nonreactive Nonreactive VITAMIN [id number] 19:57:00 Test Item Value Reference Range Comments VITAMIN B12 (BEAKER) (test ylds=268) > pg/mL 213-816 [id number] 19:45:00 Test Item Value Reference Range Comments THYROID STIMULATING HORMONE (BEAKER) (test 1.78 uIU/mL 0.35-4.94 xndz=091) TROPONIN [id number] 19:27:00 Test Item Value Reference Range Comments TROPONIN I (BEAKER) (test bthh=538) 0.04 ng/mL 0.00-0.03 Troponin I (TnI) levels must be interpreted in the context of the presenting symptoms and the clinical findings. Elevated TnI levels indicate myocardial damage, but are not specific for ischemic heart disease. Elevated TnI levels are seen in patients with other cardiac conditions (including myocarditis and congestive heart failure), and slight TnI elevations occur in patients with other conditions, including sepsis, renal failure, acidosis, acute neurological disease, and persistent tachyarrhythmia.COMPREHENSIVE METABOLIC [id number] 19:21:00 Test Item Value Reference Range Comments TOTAL PROTEIN (BEAKER) 6.4 gm/dL 6.0-8.3 (test yftl=219) ALBUMIN (BEAKER) (test 3.2 g/dL 3.5-5.0 mnxb=4707) ALKALINE PHOSPHATASE 101 U/L 40-150 (BEAKER) (test gewg=718) BILIRUBIN TOTAL (BEAKER) 0.7 mg/dL 0.2-1.2 (test yjkd=234) SODIUM (BEAKER) (test 136 meq/L 136-145 peez=024) POTASSIUM (BEAKER) (test 3.9 meq/L 3.5-5.1 smme=410) CHLORIDE (BEAKER) (test 96 meq/L 98-107 rwka=921) CO2 (BEAKER) (test 29 meq/L 22-29 ussd=620) BLOOD UREA NITROGEN 20 mg/dL 7-21 (BEAKER) (test adfz=847) CREATININE (BEAKER) (test 4.91 mg/dL 0.57-1.25 bkth=430) GLUCOSE RANDOM (BEAKER) 116 mg/dL 70-105 (test qbiy=775) CALCIUM (BEAKER) (test 8.3 mg/dL 8.4-10.2 adnm=959) AST (SGOT) (BEAKER) (test 29 U/L 5-34 vpys=195) ALT (SGPT) (BEAKER) (test 18 U/L 6-55 kpoq=876) EGFR (BEAKER) (test 10 mL/min/1.73 sq m ESTIMATED GFR IS NOT syjg=5786) ACCURATE CREATININE CLEARANCE IN PREDICTING GLOMERULAR FILTRATION RATE. ESTIMATED GFR IS NOT APPLICABLE FOR DIALYSIS PATIENTS. PROTHROMBIN [id number] 19:10:00 Test Item Value Reference Range Comments PROTIME (BEAKER) (test ouds=138) 16.0 seconds 11.9-14.2 INR (BEAKER) (test ndpf=544) 1.4 <=5.9 Effective 08/16/2018: PT Reference Range ChangeNew: 11.9-14.2 Previous: 11.7- 14.7RECOMMENDED COUMADIN/WARFARIN INR THERAPY RANGESSTANDARD DOSE: 2.0-3.0 Includes: PROPHYLAXIS for venous thrombosis, systemic embolization; TREATMENT for venous thrombosis and/or pulmonary embolus.HIGH RISK: Target INR is2.5-3.5 for patients wiht mechanical heart valves.CBC W/PLT COUNT & AUTO [id number] 19:02:00 Test Item Value Reference Range Comments WHITE BLOOD CELL COUNT (BEAKER) (test eapx=715) 9.1 K/ L 3.5-10.5 RED BLOOD CELL COUNT (BEAKER) (test uwmz=802) 2.50 M/ L 3.93-5.22 HEMOGLOBIN (BEAKER) (test czat=643) 7.7 GM/DL 11.2-15.7 HEMATOCRIT (BEAKER) (test swim=672) 25.1 % 34.1-44.9 MEAN CORPUSCULAR VOLUME (BEAKER) (test skxr=512) 100.4 fL 79.4-94.8 MEAN CORPUSCULAR HEMOGLOBIN (BEAKER) (test 30.8 pg 25.6-32.2 bkzz=016) MEAN CORPUSCULAR HEMOGLOBIN CONC (BEAKER) (test 30.7 GM/DL 32.2-35.5 ytmq=560) RED CELL DISTRIBUTION WIDTH (BEAKER) (test 15.4 % 11.7-14.4 fdgh=074) PLATELET COUNT (BEAKER) (test xyeq=443) 155 K/CU MM 150-450 MEAN PLATELET VOLUME (BEAKER) (test nqwo=078) 10.1 fL 9.4-12.3 NUCLEATED RED BLOOD CELLS (BEAKER) (test 0 /100 WBC 0-0 sjqp=466) NEUTROPHILS RELATIVE PERCENT (BEAKER) (test 88 % qgjg=077) LYMPHOCYTES RELATIVE PERCENT (BEAKER) (test 6 % oglm=148) MONOCYTES RELATIVE PERCENT (BEAKER) (test 5 % tpyb=564) EOSINOPHILS RELATIVE PERCENT (BEAKER) (test 0 % aokg=731) BASOPHILS RELATIVE PERCENT (BEAKER) (test 0 % idzm=608) NEUTROPHILS ABSOLUTE COUNT (BEAKER) (test 8.00 K/ L 1.56-6.13 mkbj=187) LYMPHOCYTES ABSOLUTE COUNT (BEAKER) (test 0.57 K/ L 1.18-3.74 lhux=368) MONOCYTES ABSOLUTE COUNT (BEAKER) (test 0.43 K/ L 0.24-0.36 phtd=058) EOSINOPHILS ABSOLUTE COUNT (BEAKER) (test 0.02 K/ L 0.04-0.36 xyrt=695) BASOPHILS ABSOLUTE COUNT (BEAKER) (test 0.04 K/ L 0.01-0.08 wayp=160) IMMATURE GRANULOCYTES-RELATIVE PERCENT (BEAKER) 1 % 0-1 (test xrhx=5312) RAD, CHEST, 1 VIEW, NON [id number] 18:34:00Reason for exam:->Shortness of breathShould this be performed at the bedside?->YesFINAL REPORT TECHNIQUE: Frontal view of the chest. INDICATION: 88-year-old woman with shortness of breath. COMPARISON: None. FINDINGS: LINES/TUBES: None. LUNGS: The lungs are well inflated. Bilateral airspace opacities. PLEURA: Suspected small left pleural effusion. No pneumothorax. HEART AND MEDIASTINUM: Prominent cardiac silhouette. SOFT TISSUES AND BONES: Unremarkable. IMPRESSION: Bilateral airspace opacities, likely pulmonary edema. Less likely differential consideration includes multifocal pneumonia. Prominent cardiac silhouette. Signed: Priscila Craig MDReport Verified Date/Time: 02/16/2019 18:34:17 Reading Location: [facility] B1 [id number] Consult Reading Room
--- NOTE | 2019-05-11 11:08 | RAD REPORT ---
EXAM DESCRIPTION: Joy Single View05/11/2019 10:55 am CLINICAL HISTORY: Shortness of breath COMPARISON: 2019 FINDINGS: The lungs appear clear of acute infiltrate. The heart is mildly enlarged . Upper lobe vessels are prominent indicative of pulmonary venous hypertension
[2019-05-11 14:06] LABS: Absolute Lymphocytes (CBC) 0.9 K/uL (0.7-4.9); Hematocrit 41.7 % (36.0-45.0); Lymphocytes % 16.4 % (15.3-44.8); MPV 7.9 fL (7.6-11.3)
[2019-05-11 14:07] LABS: Protime INR 1.01
[2019-05-11 14:24] LABS: Blood Morphology Comment NOT SEEN (NOT SEEN); Platelet Estimate DECR; Urine White Blood Cell Casts OK
[2019-05-11 14:27] LABS: Albumin 2.5 g/dL (3.4-5.0); Bilirubin Direct 0.2 mg/dL (0-0.2); Bilirubin Total 0.5 mg/dL (0.2-1.0); Magnesium 2.3 mg/dL (1.8-2.4); Potassium 3.8 mmol/L (3.5-5.1); Protein, Total 6.1 g/dL (6.4-8.2); Troponin (Emerg Dept Use Only) 0.02 ng/mL (0.0-0.045)
--- NOTE | 2019-05-11 15:17 | ER ---
Nurse's Notes [facility] Name: Erendira Graham Age: 88 yrs Sex: Female : 1930 Arrival Date: 05/11/2019 Time: 10:06 Bed 26 Private MD: Diagnosis: Weakness;Other fatigue Presentation: 05/11 10:13 Presenting complaint: Malaise, nausea, and body aches x 1 week. Transition of care: hb patient was not received from another setting of care. Onset of symptoms was May 11, 2019. Risk Assessment: Do you want to hurt yourself or someone else? Patient reports no desire to harm self or others. Care prior to arrival: None. 10:13 Method Of Arrival: Wheelchair hb 10:13 Acuity: KEKE 3 hb 14:00 Initial Sepsis Screen: Does the patient meet any 2 criteria? RR > 20 per min. Temp ls4 <36.0*C (96.8*F)) or > 38.3*C (100.9*F). Does the patient have a suspected source of infection? No. Patient's initial sepsis screen is negative. Historical: - Allergies: 10:15 Karlene; hb 10:15 Bactrim; hb 10:15 Ciprofloxacin; hb 10:15 Demerol; hb 10:15 PENICILLINS; hb 10:15 Talwin; hb 10:15 tequin; hb - Immunization history:: Adult Immunizations up to date. - Coronavirus screen:: The patient has NOT traveled to [place] in the past 14 days. The patient has NOT had contact with known/suspected case of Coronavirus? Proceed with normal triage procedures. - Social history:: Smoking status: Patient denies any tobacco usage or history of. - Ebola Screening: : No symptoms or risks identified at this time. Screenin:31 Abuse screen: Denies threats or abuse. Denies injuries from another. Nutritional aj1 screening: No deficits noted. Tuberculosis screening: No symptoms or risk factors identified. 14:00 Fall Risk Total Paris Fall Scale indicates Low Risk Score (25-44 pts). Fall prevention ls4 measures have been instituted. Side Rails Up X 2 Placed close to Nursing Station Frequent Obs/Assesments occuring Family Present and informed to notify staff if they need to leave bedside As available Patient and Family Educated on Fall Prevention Program and strategies. Assessment: 10:31 General: Appears in no apparent distress. uncomfortable, Behavior is calm, cooperative, aj1 appropriate for age. General: Reports feeling ill for for the past week. fatigue for for the past week. Pain: Denies pain. Neuro: Level of Consciousness is awake, alert, obeys commands, Oriented to person, place, time, situation. Cardiovascular: Patient's skin is warm and dry. Cardiovascular: Denies chest pain. Respiratory: Airway is patent Respiratory effort is even, unlabored, Respiratory pattern is regular, symmetrical, Denies cough. GI: No signs and/or symptoms were reported involving the gastrointestinal system. Patient currently denies abdominal pain. : No signs and/or symptoms were reported regarding the genitourinary system. EENT: No signs and/or symptoms were reported regarding the EENT system. Denies nasal congestion, nasal discharge. Derm: Skin is pale. Musculoskeletal: No signs and/or symptoms reported regarding the musculoskeletal system. Circulation, motion, and sensation intact. 11:30 Reassessment: Patient appears in no apparent distress at this time. No changes from aj1 previously documented assessment. Patient and/or family updated on plan of care and expected duration. Pain level reassessed. Patient is alert, oriented x 3, equal unlabored respirations, skin warm/dry/pink. 12:07 Reassessment: Erik Mccauley RN at bedside to insert midline IV access. aj1 13:00 Reassessment: Patient and/or family updated on plan of care and expected duration. Pain aj1 level reassessed. General: Appears in no apparent distress. uncomfortable, Behavior is calm, cooperative, appropriate for age. Neuro: Level of Consciousness is awake, alert, obeys commands. Cardiovascular: Patient's skin is warm and dry. Respiratory: Airway is patent Respiratory effort is even, unlabored, Respiratory pattern is regular, symmetrical. Derm: Skin is pale. Musculoskeletal: Circulation, motion, and sensation intact. 13:25 Reassessment: JONH Black, boatbuilder supervisor, at bedside to attempt IV access. aj1 13:54 Reassessment: Patient appears in no apparent distress at this time. No changes from aj1 previously documented assessment. Patient and/or family updated on plan of care and expected duration. Pain level reassessed. Patient is alert, oriented x 3, equal unlabored respirations, skin warm/dry/pink. 15:33 Reassessment: Patient appears in no apparent distress at this time. No changes from ls4 previously documented assessment. Patient and/or family updated on plan of care and expected duration. Pain level reassessed. Patient is alert, oriented x 3, equal unlabored respirations, skin warm/dry/pink. Vital Signs: 10:14 BP 136 / 61; Pulse 73; Resp 16; Temp 97.8; Pulse Ox 100% on R/A; Weight 65.77 kg; hb Height 5 ft. 5 in. (165.10 cm); Pain 0/10; 13:00 BP 161 / 68; Pulse 85; Resp 18; Pulse Ox 99% on R/A; aj1 14:00 BP 170 / 74; Pulse 88; Resp 16; Temp 97.9(O); Pulse Ox 99% on R/A; Pain 0/10; ls4 15:31 BP 181 / 73; Pulse 88; Resp 16; Temp 97.9; Pulse Ox 99% on R/A; Pain 0/10; ls4 10:14 Body Mass Index 24.13 (65.77 kg, 165.10 cm) hb ED Course: 10:06 Patient arrived in ED. as 10:14 Triage completed. hb 10:14 Arm band placed on. hb 10:17 Carl Hugo NP is PHCP. pm1 10:17 Raudel Agudelo MD is Attending Physician. pm1 10:18 Mindy Young, JONH is Primary Nurse. aj1 10:31 Patient has correct armband on for positive identification. Bed in low position. Call aj1 light in reach. Side rails up X 1. 10:31 No provider procedures requiring assistance completed. aj1 11:05 XRAY Chest (1 view) In Process Unspecified. EDMS 11:30 Missed attempt(s): 22 gauge in right forearm. Bleeding controlled, band aid applied, aj1 catheter tip intact. 11:37 Missed attempt(s): 22 gauge in right antecubital area. Bleeding controlled, band aid aj1 applied, catheter tip intact. 12:10 Accessed Missed PowerGlide Midline Pro 18 G 8 cm RUE, bleeding controlled and a sg pressure dressing applied. Missed attempt(s): Bleeding controlled, band aid applied, catheter tip intact. 12:40 Missed attempt(s): 22 gauge in right forearm. Bleeding controlled, band aid applied, sg catheter tip intact. 13:21 EKG done, by heavy equipment technician. reviewed by Raudel Agudelo MD. tc 13:55 Report given to JONH Mccann. aj1 14:00 Patient maintains SpO2 saturation greater than 95% on room air. ls4 15:42 IV discontinued, intact, bleeding controlled, No redness/swelling at site. Pressure ls4 dressing applied. Administered Medications: No medications were administered Outcome: 15:16 Discharge ordered by MD. pm1 15:42 Discharged to home ambulatory. ls4 15:42 Condition: stable 15:42 Discharge instructions given to patient, family, Instructed on discharge instructions, follow up and referral plans. medication usage, Demonstrated understanding of instructions, follow-up care, medications, Prescriptions given X 15:44 Patient left the ED. ls4 Signatures: Dispatcher [employer] EDMS Mindy Young RN RN aj1 Alfa Mccauley RN RN sg Martinez, Amelia as Rowan Jacobo, sales promoter EKG Ttc Carl Hugo, DEV PLUMBING DRAFTER pm1 Zara Hall RN RN Siobhan Moyer RN RN ls4 Corrections: (The following items were deleted from the chart) 15:33 15:00 BP 170 / 74; Pulse 88bpm; Resp 16bpm; Pulse Ox 99% RA; Temp 97.9F Oral; Pain ls4 0/10; ls4
--- NOTE | 2019-05-11 15:17 | EDPHYS ---
Physician Documentation [facility] Name: Erendira Graham Age: 88 yrs Sex: Female : 1930 Arrival Date: 05/11/2019 Time: 10:06 Bed 26 Private MD: ED Physician Raudel Agudelo HPI: 05/11 10:39 This 88 yrs old Black Female presents to ER via Wheelchair with complaints of pm1 generalized weakness and low energy. 10:39 Onset: The symptoms/episode began/occurred 1 week(s) ago. Associated signs and pm1 symptoms: Pertinent negatives: abdominal pain, chest pain, constipation, cough, diarrhea, fever, headache, shortness of breath, vomiting. Modifying factors: The patient symptoms are alleviated by nothing, the patient symptoms are aggravated by nothing. The patient has not experienced similar symptoms in the past. PCP is Debby. Dialysis MWF. Missed today's dialysis. Historical: - Allergies: 10:15 Karlene; hb 10:15 Bactrim; hb 10:15 Ciprofloxacin; hb 10:15 Demerol; hb 10:15 PENICILLINS; hb 10:15 Talwin; hb 10:15 tequin; hb - Immunization history:: Adult Immunizations up to date. - Coronavirus screen:: The patient has NOT traveled to [place] in the past 14 days. The patient has NOT had contact with known/suspected case of Coronavirus? Proceed with normal triage procedures. - Social history:: Smoking status: Patient denies any tobacco usage or history of. - Ebola Screening: : No symptoms or risks identified at this time. ROS: 10:39 Eyes: Negative for injury, pain, redness, and discharge, ENT: Negative for injury, pm1 pain, and discharge, Neck: Negative for injury, pain, and swelling, Cardiovascular: Negative for chest pain, palpitations, and edema, Respiratory: Negative for shortness of breath, cough, wheezing, and pleuritic chest pain, Abdomen/GI: Negative for abdominal pain, nausea, vomiting, diarrhea, and constipation, Back: Negative for injury and pain, MS/Extremity: Negative for injury and deformity, Skin: Negative for injury, rash, and discoloration, Neuro: Negative for headache, weakness, numbness, tingling, and seizure. 10:39 Constitutional: Positive for malaise, decreased energy, Negative for body aches, chills, fever. Exam: 10:39 Constitutional: This is a well developed, well nourished patient who is awake, alert, pm1 and in no acute distress. Head/Face: Normocephalic, atraumatic. Eyes: Pupils equal round and reactive to light, extra-ocular motions intact. Lids and lashes normal. Conjunctiva and sclera are non-icteric and not injected. Cornea within normal limits. Periorbital areas with no swelling, redness, or edema. ENT: Nares patent. No nasal discharge, no septal abnormalities noted. Tympanic membranes are normal and external auditory canals are clear. Oropharynx with no redness, swelling, or masses, exudates, or evidence of obstruction, uvula midline. Mucous membranes moist. Neck: Trachea midline, no thyromegaly or masses palpated, and no cervical lymphadenopathy. Supple, full range of motion without nuchal rigidity, or vertebral point tenderness. No Meningismus. Chest/axilla: Normal chest wall appearance and motion. Nontender with no deformity. No lesions are appreciated. Cardiovascular: Regular rate and rhythm with a normal S1 and S2. No gallops, murmurs, or rubs. No pulse deficits. Respiratory: Lungs have equal breath sounds bilaterally, clear to auscultation and percussion. No rales, rhonchi or wheezes noted. No increased work of breathing, no retractions or nasal flaring. Abdomen/GI: Soft, non-tender, with normal bowel sounds. No distension or tympany. No guarding or rebound. No evidence of tenderness throughout. Back: No spinal tenderness. No costovertebral tenderness. Full range of motion. Skin: Warm, dry with normal turgor. Normal color with no rashes, no lesions, and no evidence of cellulitis. MS/ Extremity: Pulses equal, no cyanosis. Neurovascular intact. Full, normal range of motion. 10:39 Neuro: Orientation: is normal, Mentation: is normal, Motor: is normal, moves all fours, Sensation: is normal, no obvious gross deficits. Vital Signs: 10:14 BP 136 / 61; Pulse 73; Resp 16; Temp 97.8; Pulse Ox 100% on R/A; Weight 65.77 kg; hb Height 5 ft. 5 in. (165.10 cm); Pain 0/10; 13:00 BP 161 / 68; Pulse 85; Resp 18; Pulse Ox 99% on R/A; aj1 14:00 BP 170 / 74; Pulse 88; Resp 16; Temp 97.9(O); Pulse Ox 99% on R/A; Pain 0/10; ls4 15:31 BP 181 / 73; Pulse 88; Resp 16; Temp 97.9; Pulse Ox 99% on R/A; Pain 0/10; ls4 10:14 Body Mass Index 24.13 (65.77 kg, 165.10 cm) hb MDM: 10:18 Patient medically screened. pm1 15:15 Data reviewed: vital signs. Data interpreted: Pulse oximetry: on room air is 99 %. pm1 Interpretation: normal. Counseling: I had a detailed discussion with the patient and/or guardian regarding: the historical points, exam findings, and any diagnostic results supporting the discharge/admit diagnosis, lab results, radiology results, the need for outpatient follow up, to return to the emergency department if symptoms worsen or persist or if there are any questions or concerns that arise at home. 05/11 10:36 Order name: Basic Metabolic Panel; Complete Time: 14:47 pm1 05/11 10:36 Order name: CBC with Diff; Complete Time: 14:47 pm05/11 10:36 Order name: LFT's; Complete Time: 14:47 pm1 05/11 10:36 Order name: Magnesium; Complete Time: 14:47 pm1 05/11 10:36 Order name: NT PRO-BNP; Complete Time: 14:47 pm05/11 10:36 Order name: PT-INR; Complete Time: 14:10 pm05/11 10:36 Order name: Troponin (emerg Dept Use Only); Complete Time: 14:47 pm1 05/11 10:36 Order name: XRAY Chest (1 view); Complete Time: 11:52 pm1 05/11 10:36 Order name: EKG; Complete Time: 10:39 pm1 05/11 10:36 Order name: Cardiac monitoring; Complete Time: 13:21 pm1 05/11 10:36 Order name: EKG - Nurse/Tech; Complete Time: 13:21 pm05/11 10:36 Order name: IV Saline Lock; Complete Time: 13:45 pm05/11 10:36 Order name: Flu; Complete Time: 13:33 pm1 05/11 14:25 Order name: CBC Smear Scan; Complete Time: 14:47 EDDC 05/11 10:36 Order name: Labs collected and sent; Complete Time: 14:21 pm1 05/11 10:36 Order name: O2 Per Protocol; Complete Time: 13:21 pm1 05/11 10:36 Order name: O2 Sat Monitoring; Complete Time: 13:21 pm1 Administered Medications: No medications were administered Disposition: 17:01 Co-signature as Attending Physician, Raudel Agudelo MD I agree with the assessment and kdr plan of care. Disposition: 05/11/19 15:16 Discharged to Home. Impression: Weakness, Other fatigue. - Condition is Stable. - Discharge Instructions: Weakness, Fatigue. - Medication Reconciliation Form, Thank You Letter, Antibiotic Education, Prescription Opioid Use form. - Follow up: Emergency Department; When: As needed; Reason: Worsening of condition. Follow up: Private Physician; When: 2 - 3 days; Reason: Recheck today's complaints, Continuance of care, Re-evaluation by your physician. - Problem is new. - Symptoms have improved. Signatures: Dispatcher [employer] [facility] Raudel Agudelo MD MD [facility] Carl Hugo NP PSYCH NURSE pm1 Zara Hall RN RN Siobhan Moyer RN RN ls4 Corrections: (The following items were deleted from the chart) 15:18 15:16 05/11/2019 15:16 Discharged to Home. Impression: Weakness. Condition is Stable. pm1 Forms are Medication Reconciliation Form, Thank You Letter, Antibiotic Education, Prescription Opioid Use. Follow up: Emergency Department; When: As needed; Reason: Worsening of condition. Follow up: Private Physician; When: 2 - 3 days; Reason: Recheck today's complaints, Continuance of care, Re-evaluation by your physician. Problem is new. Symptoms have improved. pm1 15:44 15:18 05/11/2019 15:16 Discharged to Home. Impression: Weakness; Other fatigue. ls4 Condition is Stable. Discharge Instructions: Weakness, Fatigue. Forms are Medication Reconciliation Form, Thank You Letter, Antibiotic Education, Prescription Opioid Use. Follow up: Emergency Department; When: As needed; Reason: Worsening of condition. Follow up: Private Physician; When: 2 - 3 days; Reason: Recheck today's complaints, Continuance of care, Re-evaluation by your physician. Problem is new. Symptoms have improved. pm1
[2019-05-11 16:13] VITALS: O2SAT 99
[2019-05-11 16:14] VITALS: TEMP 97.9
[2019-05-11 16:16] VITALS: BP 181/73
--- NOTE | 2019-05-12 16:29 | EKG ---
Test Date: 2019-05-11 Test Time: 13:19:49 Plumbing Manager: KENTRELL MEASUREMENT RESULTS: Intervals: Rate: 83 SC: 216 QRSD: 86 QT: 380 QTc: 446 [place]: P: 75 SC: 216 QRS: -44 T: 50 INTERPRETIVE STATEMENTS: Sinus rhythm with 1st degree AV block with premature supraventricular complexes Left axis deviation Anteroseptal infarct, age undetermined Abnormal ECG Compared to ECG 02/15/2019 20:16:19 Atrial premature complex(es) now present First degree AV block now present Left-axis deviation now present Atrial fibrillation no longer present Right-axis deviation no longer present Myocardial infarct finding still present Electronically Signed On 05-12-19 16:27:45 [employer]OC[employer] BUTTER FILTER OPERATOR by Juan Pablo Leroy
== END 2019-05-11 15:44 | disposition home or self-care (01) ==
LOC: ER 10:05
DX: R53.1 Weakness (principal); R53.83 Other fatigue; Z88.1 Allergy status to other antibiotic agents; Z88.0 Allergy status to penicillin; Z88.6 Allergy status to analgesic agent
CPT/HCPCS: 36415; 71045; 80048; 80076; 83735; 83880; 84484; 85025; 85610; 87804; 93005; 99284

== ENCOUNTER 2019-06-08 15:39 | Emergency (ER) | payer OTHER ==
--- OUTSIDE RECORDS SUMMARY | 2019-06-08 15:42 | XMS REPORT ---
:1930 [facility] Address [address] [place] [address] Care Team Providers Name Role Phone KENDRICK [...] Value Reference Range Comments CULTURE (BEAKER) (test plpf=9287) No growth GRAM STAIN RESULT (BEAKER) (test fogz=7115) <1+ WBCs GRAM STAIN RESULT (BEAKER) (test ppwz=90703) No organisms seen POCT-GLUCOSE [id number] 12:10:00 Test Item Value Reference Range Comments POC-GLUCOSE METER (BEAKER) 77 mg/dL 70-110 : TESTED AT [facility] [address] [facility] (test hjor=5452) [facility], [address]: Middle School Assistant Principal/Medical Assistant [id number] for Erickson Berrios CBC W/PLT COUNT & AUTO [id number] 05:11:00 Test Item Value Reference Range Comments WHITE BLOOD CELL COUNT (BEAKER) (test vchr=182) 7.5 K/ L 3.5-10.5 RED BLOOD CELL COUNT (BEAKER) (test hkul=778) 2.47 M/ L 3.93-5.22 HEMOGLOBIN (BEAKER) (test asaf=369) 7.5 GM/DL 11.2-15.7 HEMATOCRIT (BEAKER) (test nqhw=046) 24.6 % 34.1-44.9 MEAN CORPUSCULAR VOLUME (BEAKER) (test lfyx=127) 99.6 fL 79.4-94.8 MEAN CORPUSCULAR HEMOGLOBIN (BEAKER) (test 30.4 pg 25.6-32.2 wofm=093) MEAN CORPUSCULAR HEMOGLOBIN CONC (BEAKER) (test 30.5 GM/DL 32.2-35.5 chri=882) RED CELL DISTRIBUTION WIDTH (BEAKER) (test 15.3 % 11.7-14.4 vrjn=376) PLATELET COUNT (BEAKER) (test sbuh=243) 183 K/CU MM 150-450 MEAN PLATELET VOLUME (BEAKER) (test bueh=008) 9.6 fL 9.4-12.3 NUCLEATED RED BLOOD CELLS (BEAKER) (test 0 /100 WBC 0-0 xeaj=913) NEUTROPHILS RELATIVE PERCENT (BEAKER) (test 76 % eiwp=210) LYMPHOCYTES RELATIVE PERCENT (BEAKER) (test 15 % amly=957) MONOCYTES RELATIVE PERCENT (BEAKER) (test 5 % sfmi=934) EOSINOPHILS RELATIVE PERCENT (BEAKER) (test 4 % nlxi=215) BASOPHILS RELATIVE PERCENT (BEAKER) (test 0 % wlfw=351) NEUTROPHILS ABSOLUTE COUNT (BEAKER) (test 5.70 K/ L 1.56-6.13 qjec=273) LYMPHOCYTES ABSOLUTE COUNT (BEAKER) (test 1.11 K/ L 1.18-3.74 wdym=027) MONOCYTES ABSOLUTE COUNT (BEAKER) (test 0.39 K/ L 0.24-0.36 salh=846) EOSINOPHILS ABSOLUTE COUNT (BEAKER) (test 0.28 K/ L 0.04-0.36 qmur=538) BASOPHILS ABSOLUTE COUNT (BEAKER) (test 0.02 K/ L 0.01-0.08 gcwz=487) IMMATURE GRANULOCYTES-RELATIVE PERCENT (BEAKER) 0 % 0-1 (test cikn=0729) POCT-GLUCOSE [id number] 21:01:00 Test Item Value Reference Range Comments POC-GLUCOSE METER (BEAKER) 105 mg/dL 70-110 : TESTED AT [place] [id number] [facility] (test vbkq=6874) [facility], [address]: Middle School Assistant Principal/Medical Assistant [id number] for BILL MADRID POCT-GLUCOSE [id number] 21:00:00 Test Item Value Reference Range Comments POC-GLUCOSE METER (BEAKER) 138 mg/dL 70-110 : TESTED AT [facility] [address] [facility] (test vgdf=8341) [facility], [address]: Middle School Assistant Principal/Medical Assistant [id number] for JENNIFER CHAVARRIA POCT-GLUCOSE [id number] 09:13:00 Test Item Value Reference Range Comments POC-GLUCOSE METER (BEAKER) 77 mg/dL 70-110 : TESTED AT [facility] [address] [facility] (test jyzl=1545) [facility], [address]: Middle School Assistant Principal/Medical Assistant [phone] for FELTON NEIL COMPREHENSIVE METABOLIC [id number] 06:33:00 Test Item Value Reference Range Comments TOTAL PROTEIN (BEAKER) 6.2 gm/dL 6.0-8.3 (test jaid=008) ALBUMIN (BEAKER) (test 3.1 g/dL 3.5-5.0 hyxd=1127) ALKALINE PHOSPHATASE 89 U/L 40-150 (BEAKER) (test daug=241) BILIRUBIN TOTAL (BEAKER) 0.5 mg/dL 0.2-1.2 (test mpxv=976) SODIUM (BEAKER) (test 137 meq/L 136-145 ahew=433) POTASSIUM (BEAKER) (test 4.4 meq/L 3.5-5.1 hpvy=247) CHLORIDE (BEAKER) (test 101 meq/L 98-107 aovo=001) CO2 (BEAKER) (test 28 meq/L 22-29 murz=570) BLOOD UREA NITROGEN 19 mg/dL 7-21 (BEAKER) (test xyjk=596) CREATININE (BEAKER) (test 4.63 mg/dL 0.57-1.25 eypp=977) GLUCOSE RANDOM (BEAKER) 75 mg/dL 70-105 (test jcpx=395) CALCIUM (BEAKER) (test 8.6 mg/dL 8.4-10.2 dcnt=088) AST (SGOT) (BEAKER) (test 34 U/L 5-34 idfd=108) ALT (SGPT) (BEAKER) (test 21 U/L 6-55 dgqy=037) EGFR (BEAKER) (test 11 mL/min/1.73 sq m ESTIMATED GFR IS NOT jtlc=8635) ACCURATE CREATININE CLEARANCE IN PREDICTING GLOMERULAR FILTRATION RATE. ESTIMATED GFR IS NOT APPLICABLE FOR DIALYSIS PATIENTS. CBC W/PLT COUNT & AUTO [id number] 05:46:00 Test Item Value Reference Range Comments WHITE BLOOD CELL COUNT (BEAKER) (test bmbp=995) 6.6 K/ L 3.5-10.5 RED BLOOD CELL COUNT (BEAKER) (test wodq=979) 2.43 M/ L 3.93-5.22 HEMOGLOBIN (BEAKER) (test uiiq=515) 7.4 GM/DL 11.2-15.7 HEMATOCRIT (BEAKER) (test jjvp=839) 24.4 % 34.1-44.9 MEAN CORPUSCULAR VOLUME (BEAKER) (test xzfg=488) 100.4 fL 79.4-94.8 MEAN CORPUSCULAR HEMOGLOBIN (BEAKER) (test 30.5 pg 25.6-32.2 tbrm=006) MEAN CORPUSCULAR HEMOGLOBIN CONC (BEAKER) (test 30.3 GM/DL 32.2-35.5 qhlb=316) RED CELL DISTRIBUTION WIDTH (BEAKER) (test 15.4 % 11.7-14.4 wddl=400) PLATELET COUNT (BEAKER) (test dqdw=786) 171 K/CU MM 150-450 MEAN PLATELET VOLUME (BEAKER) (test argh=586) 10.2 fL 9.4-12.3 NUCLEATED RED BLOOD CELLS (BEAKER) (test 0 /100 WBC 0-0 lphl=980) NEUTROPHILS RELATIVE PERCENT (BEAKER) (test 72 % lwsu=501) LYMPHOCYTES RELATIVE PERCENT (BEAKER) (test 17 % mtio=657) MONOCYTES RELATIVE PERCENT (BEAKER) (test 6 % cztq=835) EOSINOPHILS RELATIVE PERCENT (BEAKER) (test 5 % kegk=450) BASOPHILS RELATIVE PERCENT (BEAKER) (test 0 % lcgm=605) NEUTROPHILS ABSOLUTE COUNT (BEAKER) (test 4.71 K/ L 1.56-6.13 oqvq=072) LYMPHOCYTES ABSOLUTE COUNT (BEAKER) (test 1.08 K/ L 1.18-3.74 ufuq=326) MONOCYTES ABSOLUTE COUNT (BEAKER) (test 0.42 K/ L 0.24-0.36 kbcz=160) EOSINOPHILS ABSOLUTE COUNT (BEAKER) (test 0.30 K/ L 0.04-0.36 uvls=009) BASOPHILS ABSOLUTE COUNT (BEAKER) (test 0.02 K/ L 0.01-0.08 piax=365) IMMATURE GRANULOCYTES-RELATIVE PERCENT (BEAKER) 0 % 0-1 (test cpln=5862) [id number] 04:27:00 Test Item Value Reference Range Comments RPR SCREEN (BEAKER) (test aoth=011) Nonreactive Nonreactive POCT-GLUCOSE [id number] 22:54:00 Test Item Value Reference Range Comments POC-GLUCOSE METER (BEAKER) 94 mg/dL 70-110 : TESTED AT [address] (test wjpu=0717) [facility], [address]: Middle School Assistant Principal/Medical Assistant [id number] for JACKY HAY POCT-GLUCOSE [id number] 18:10:00 Test Item Value Reference Range Comments POC-GLUCOSE METER (BEAKER) 108 mg/dL 70-110 : TESTED AT [address] (test pxwh=6203) [facility], [address]: Middle School Assistant Principal/Medical Assistant [id number] for JULISSA RAMON MR, BRAIN, WITHOUT [id number] 16:05:00FINAL REPORT MR, BRAIN, WITHOUT CONTRAST INDICATION: [...] Abraham MDReport Verified Date/Time: 02/17/2019 16:05:48 POCT-GLUCOSE [id number] 12:03:00 Test Item Value Reference Range Comments POC-GLUCOSE METER (BEAKER) 145 mg/dL 70-110 : Notified RN/MD: TESTED AT (test yhlw=2958) [address], [address]: Middle School Assistant Principal/Medical Assistant [id number] for JULISSA RAMON URINALYSIS W/ REFLEX URINE [id number] 11:54:00 Test Item Value Reference Range Comments COLOR (BEAKER) (test gfrh=940) Yellow CLARITY (BEAKER) (test remv=971) Hazy SPECIFIC GRAVITY UA (BEAKER) (test untd=423) 1.011 1.001-1.035 PH UA (BEAKER) (test sgmy=278) 8.5 5.0-8.0 PROTEIN UA (BEAKER) (test biww=339) 300 mg/dL Negative GLUCOSE UA (BEAKER) (test zvtb=719) Negative Negative KETONES UA (BEAKER) (test mfcy=805) Negative Negative BILIRUBIN UA (BEAKER) (test rmwq=448) Negative Negative BLOOD UA (BEAKER) (test fpxu=283) Trace Negative NITRITE UA (BEAKER) (test cezx=595) Positive Negative LEUKOCYTE ESTERASE UA (BEAKER) (test cdib=460) Large Negative UROBILINOGEN UA (BEAKER) (test gzeb=736) 0.2 mg/dL 0.2-1.0 RBC UA (BEAKER) (test bvfi=537) 9 /HPF WBC UA (BEAKER) (test qjkc=061) 24 /HPF BACTERIA (BEAKER) (test netk=621) Moderate MUCUS (BEAKER) (test gfzz=4351) Many SQUAMOUS EPITHELIAL (BEAKER) (test upur=298) 50 /HPF SOURCE(BEAKER) (test caed=1438) VITAMIN B12 AND [id number] 09:50:00 Test Item Value Reference Range Comments VITAMIN B12 (BEAKER) (test kpnk=710) > pg/mL 213-816 FOLATE (BEAKER) (test bnol=973) 16.5 ng/mL >=7.0 HEMOGLOBIN [id number] 09:03:00 Test Item Value Reference Range Comments HEMOGLOBIN A1C (BEAKER) (test laaj=849) 4.3 % 4.3-6.1 HEMOGLOBIN [id number] 06:22:00 Test Item Value Reference Range Comments HEMOGLOBIN A1C (BEAKER) (test wjis=774) 4.3 % 4.3-6.1 COMPREHENSIVE METABOLIC [id number] 05:42:00 Test Item Value Reference Range Comments TOTAL PROTEIN (BEAKER) 6.3 gm/dL 6.0-8.3 (test tvts=827) ALBUMIN (BEAKER) (test 3.2 g/dL 3.5-5.0 lnmj=7469) ALKALINE PHOSPHATASE 96 U/L 40-150 (BEAKER) (test ldcy=533) BILIRUBIN TOTAL (BEAKER) 0.7 mg/dL 0.2-1.2 (test olsk=486) SODIUM (BEAKER) (test 139 meq/L 136-145 cehk=588) POTASSIUM (BEAKER) (test 4.3 meq/L 3.5-5.1 bdpw=694) CHLORIDE (BEAKER) (test 102 meq/L 98-107 ykyi=461) CO2 (BEAKER) (test 29 meq/L 22-29 hlie=667) BLOOD UREA NITROGEN 11 mg/dL 7-21 (BEAKER) (test uqae=154) CREATININE (BEAKER) (test 3.16 mg/dL 0.57-1.25 kdwk=359) GLUCOSE RANDOM (BEAKER) 79 mg/dL 70-105 (test deoy=881) CALCIUM (BEAKER) (test 8.9 mg/dL 8.4-10.2 dqxy=721) AST (SGOT) (BEAKER) (test 33 U/L 5-34 bwel=033) ALT (SGPT) (BEAKER) (test 19 U/L 6-55 sjbb=577) EGFR (BEAKER) (test 17 mL/min/1.73 sq m ESTIMATED GFR IS NOT wyem=4086) ACCURATE CREATININE CLEARANCE IN PREDICTING GLOMERULAR FILTRATION RATE. ESTIMATED GFR IS NOT APPLICABLE FOR DIALYSIS PATIENTS. FastingLIPID [id number] 05:36:00 Test Item Value Reference Range Comments TRIGLYCERIDES (BEAKER) (test dxcf=723) 61 mg/dL CHOLESTEROL (BEAKER) (test ussg=489) 104 mg/dL HDL CHOLESTEROL (BEAKER) (test mngo=222) 56 mg/dL LDL CHOLESTEROL CALCULATED (BEAKER) (test 36 mg/dL vqlc=168) Triglyceride Reference Range: Low Risk <150 Borderline 150- 199 High Risk 200-499 Very High Risk >=500Cholesterol Reference Range: Low Risk <200 Borderline 200-239 High Risk > 240HDL Cholesterol Reference Range: Low Risk >=60 High Risk <40LDL Cholesterol Reference Range: Optimal <100 Near Optimal 100-129 Borderline 130-159 High 160-189 Very High >=190 FastingCBC W/PLT COUNT & AUTO [id number] 05:04:00 Test Item Value Reference Range Comments WHITE BLOOD CELL COUNT (BEAKER) (test dnxs=980) 7.6 K/ L 3.5-10.5 RED BLOOD CELL COUNT (BEAKER) (test xvoj=708) 2.42 M/ L 3.93-5.22 HEMOGLOBIN (BEAKER) (test jsxs=043) 7.6 GM/DL 11.2-15.7 HEMATOCRIT (BEAKER) (test tyoc=963) 24.5 % 34.1-44.9 MEAN CORPUSCULAR VOLUME (BEAKER) (test ecmf=127) 101.2 fL 79.4-94.8 MEAN CORPUSCULAR HEMOGLOBIN (BEAKER) (test 31.4 pg 25.6-32.2 coqr=683) MEAN CORPUSCULAR HEMOGLOBIN CONC (BEAKER) (test 31.0 GM/DL 32.2-35.5 hrlj=890) RED CELL DISTRIBUTION WIDTH (BEAKER) (test 15.5 % 11.7-14.4 qlll=129) PLATELET COUNT (BEAKER) (test xerj=755) 172 K/CU MM 150-450 MEAN PLATELET VOLUME (BEAKER) (test dkui=748) 10.3 fL 9.4-12.3 NUCLEATED RED BLOOD CELLS (BEAKER) (test 0 /100 WBC 0-0 lzwy=732) NEUTROPHILS RELATIVE PERCENT (BEAKER) (test 82 % vyui=088) LYMPHOCYTES RELATIVE PERCENT (BEAKER) (test 11 % cxbg=248) MONOCYTES RELATIVE PERCENT (BEAKER) (test 5 % fnso=281) EOSINOPHILS RELATIVE PERCENT (BEAKER) (test 2 % jpfq=360) BASOPHILS RELATIVE PERCENT (BEAKER) (test 1 % ueau=619) NEUTROPHILS ABSOLUTE COUNT (BEAKER) (test 6.16 K/ L 1.56-6.13 kyep=096) LYMPHOCYTES ABSOLUTE COUNT (BEAKER) (test 0.80 K/ L 1.18-3.74 nyih=304) MONOCYTES ABSOLUTE COUNT (BEAKER) (test 0.40 K/ L 0.24-0.36 nyhr=978) EOSINOPHILS ABSOLUTE COUNT (BEAKER) (test 0.13 K/ L 0.04-0.36 kaga=985) BASOPHILS ABSOLUTE COUNT (BEAKER) (test 0.04 K/ L 0.01-0.08 upxe=527) IMMATURE GRANULOCYTES-RELATIVE PERCENT (BEAKER) 0 % 0-1 (test ntbw=7188) POCT-GLUCOSE [id number] 00:21:00 Test Item Value Reference Range Comments POC-GLUCOSE METER (BEAKER) 92 mg/dL 70-110 : TESTED AT [facility] [address] [facility] (test ydlr=2862) [facility], [address]: Middle School Assistant Principal/Medical Assistant [id number] for Kirstie Hyde HEPATITIS B SURFACE [id number] 20:43:00 Test Item Value Reference Range Comments HEPATITIS B SURFACE ANTIGEN (2) (BEAKER) (test Nonreactive Nonreactive jetl=4150) HEPATITIS C [id number] 20:43:00 Test Item Value Reference Range Comments HEPATITIS C ANTIBODY (BEAKER) (test ofix=939) Nonreactive Nonreactive VITAMIN [id number] 19:57:00 Test Item Value Reference Range Comments VITAMIN B12 (BEAKER) (test offj=362) > pg/mL 213-816 [id number] 19:45:00 Test Item Value Reference Range Comments THYROID STIMULATING HORMONE (BEAKER) (test 1.78 uIU/mL 0.35-4.94 klvv=044) TROPONIN [id number] 19:27:00 Test Item Value Reference Range Comments TROPONIN I (BEAKER) (test fzns=296) 0.04 ng/mL 0.00-0.03 Troponin I (TnI) levels [...] acute neurological disease, and persistent tachyarrhythmia.COMPREHENSIVE METABOLIC [id number] 19:21:00 Test Item Value Reference Range Comments TOTAL PROTEIN (BEAKER) 6.4 gm/dL 6.0-8.3 (test drxa=660) ALBUMIN (BEAKER) (test 3.2 g/dL 3.5-5.0 oniw=5722) ALKALINE PHOSPHATASE 101 U/L 40-150 (BEAKER) (test hnez=135) BILIRUBIN TOTAL (BEAKER) 0.7 mg/dL 0.2-1.2 (test brqa=130) SODIUM (BEAKER) (test 136 meq/L 136-145 qxqs=668) POTASSIUM (BEAKER) (test 3.9 meq/L 3.5-5.1 sjsw=142) CHLORIDE (BEAKER) (test 96 meq/L 98-107 ogbi=162) CO2 (BEAKER) (test 29 meq/L 22-29 iuxr=947) BLOOD UREA NITROGEN 20 mg/dL 7-21 (BEAKER) (test dopk=262) CREATININE (BEAKER) (test 4.91 mg/dL 0.57-1.25 sshy=142) GLUCOSE RANDOM (BEAKER) 116 mg/dL 70-105 (test vwxf=033) CALCIUM (BEAKER) (test 8.3 mg/dL 8.4-10.2 nung=268) AST (SGOT) (BEAKER) (test 29 U/L 5-34 owlx=877) ALT (SGPT) (BEAKER) (test 18 U/L 6-55 alby=599) EGFR (BEAKER) (test 10 mL/min/1.73 sq m ESTIMATED GFR IS NOT btwf=1468) ACCURATE CREATININE CLEARANCE IN PREDICTING GLOMERULAR FILTRATION RATE. ESTIMATED GFR IS NOT APPLICABLE FOR DIALYSIS PATIENTS. PROTHROMBIN [id number] 19:10:00 Test Item Value Reference Range Comments PROTIME (BEAKER) (test lvwz=829) 16.0 seconds 11.9-14.2 INR (BEAKER) (test lxgd=978) 1.4 <=5.9 Effective 08/16/2018: PT Reference Range ChangeNew: 11.9-14.2 Previous: 11.7- 14.7RECOMMENDED COUMADIN/WARFARIN INR THERAPY RANGESSTANDARD DOSE: 2.0-3.0 Includes: PROPHYLAXIS for venous thrombosis, systemic embolization; TREATMENT for venous thrombosis and/or pulmonary embolus.HIGH RISK: Target INR is2.5-3.5 for patients wiht mechanical heart valves.CBC W/PLT COUNT & AUTO [id number] 19:02:00 Test Item Value Reference Range Comments WHITE BLOOD CELL COUNT (BEAKER) (test wgmp=248) 9.1 K/ L 3.5-10.5 RED BLOOD CELL COUNT (BEAKER) (test aevr=378) 2.50 M/ L 3.93-5.22 HEMOGLOBIN (BEAKER) (test idaq=659) 7.7 GM/DL 11.2-15.7 HEMATOCRIT (BEAKER) (test dtdi=635) 25.1 % 34.1-44.9 MEAN CORPUSCULAR VOLUME (BEAKER) (test oboq=859) 100.4 fL 79.4-94.8 MEAN CORPUSCULAR HEMOGLOBIN (BEAKER) (test 30.8 pg 25.6-32.2 qley=999) MEAN CORPUSCULAR HEMOGLOBIN CONC (BEAKER) (test 30.7 GM/DL 32.2-35.5 kgpt=452) RED CELL DISTRIBUTION WIDTH (BEAKER) (test 15.4 % 11.7-14.4 kphy=182) PLATELET COUNT (BEAKER) (test nmmr=074) 155 K/CU MM 150-450 MEAN PLATELET VOLUME (BEAKER) (test gcnk=673) 10.1 fL 9.4-12.3 NUCLEATED RED BLOOD CELLS (BEAKER) (test 0 /100 WBC 0-0 rdee=997) NEUTROPHILS RELATIVE PERCENT (BEAKER) (test 88 % sggy=047) LYMPHOCYTES RELATIVE PERCENT (BEAKER) (test 6 % leei=409) MONOCYTES RELATIVE PERCENT (BEAKER) (test 5 % tmqj=008) EOSINOPHILS RELATIVE PERCENT (BEAKER) (test 0 % nhgk=497) BASOPHILS RELATIVE PERCENT (BEAKER) (test 0 % ouyg=619) NEUTROPHILS ABSOLUTE COUNT (BEAKER) (test 8.00 K/ L 1.56-6.13 zbnb=310) LYMPHOCYTES ABSOLUTE COUNT (BEAKER) (test 0.57 K/ L 1.18-3.74 pycb=699) MONOCYTES ABSOLUTE COUNT (BEAKER) (test 0.43 K/ L 0.24-0.36 nqex=326) EOSINOPHILS ABSOLUTE COUNT (BEAKER) (test 0.02 K/ L 0.04-0.36 sofs=287) BASOPHILS ABSOLUTE COUNT (BEAKER) (test 0.04 K/ L 0.01-0.08 ahdr=206) IMMATURE GRANULOCYTES-RELATIVE PERCENT (BEAKER) 1 % 0-1 (test lchb=1573) RAD, CHEST, 1 VIEW, NON [id number] 18:34:00Reason for exam:->Shortness of breathShould this be [...] MDReport Verified Date/Time: 02/16/2019 18:34:17 Reading Location: [facility] B1 [id number] Consult Reading Room
--- NOTE | 2019-06-08 17:04 | RAD REPORT ---
EXAM DESCRIPTION: CT - Head Brain Wo Cont - 06/08/2019 4:43 pm CLINICAL HISTORY: HEADACHE, right-side COMPARISON: Head Brain Wo Cont dated 02/16/2019 TECHNIQUE: Axial 5 mm thick images of the head were obtained without IV contrast. All CT scans are performed using dose optimization technique as appropriate and may include automated exposure control or mA/KV adjustment according to patient size. FINDINGS: No intracranial hemorrhage, mass, edema or shift of mid-line structures. No acute infarcti on changes seen. No cortical edema or sulcal effacement. Moderate severity atrophy and chronic ischem ic changes match the comparison. Ventricles remain in proportion to volume loss. Mastoid air cells and visualized portions of the paranasal sinuses are clear. No acute bony findings. IMPRESSION: Atrophy and chronic ischemic change similar to January 2019 imaging. No acute intracran ial finding.
--- NOTE | 2019-06-08 17:09 | RAD REPORT ---
EXAM DESCRIPTION: RAD - Chest Single View - 06/08/2019 4:55 pm CLINICAL HISTORY: weakness, shortness of breath, CHF history, hypertension, end-stage renal disease COMPARISON: Portable May 11 TECHNIQUE: AP portable chest image was obtained 06/08/2019 4:55 pm . FINDINGS: Lungs are underinflated. No peripheral mass or consolidation. Right hemidiaphragm elevatio n is present. Interstitial markings are accentuated by the shallow inspiration potentially masking ea rly edema or infiltrate. Heart and vasculature are normal. No measurable pleural effusion and no pneu mothorax. No acute bony abnormality seen. No acute aortic findings suspected. IMPRESSION: No peripheral mass or consolidation. Accentuated interstitial pattern due to shallow inspiration. This is not substantially different from comparison. A mild edema or infiltrate could be masked.
[2019-06-08 17:32] LABS: Absolute Lymphocytes (CBC) 0.8 K/uL (0.7-4.9); Basophils % 0.8 % (0-1.3); Hematocrit 34.5 % (36.0-45.0); Lymphocytes % 17.6 % (15.3-44.8); MPV 8.9 fL (7.6-11.3); RBC Red Blood Cell Count 3.68 M/uL (3.86-4.86)
--- NOTE | 2019-06-08 17:44 | EKG ---
Test Date: 2019-06-08 Test Time: 17:29:10 Scheduler: CHAPO MEASUREMENT RESULTS: Intervals: Rate: 91 [place]: 216 QRSD: 84 QT: 388 QTc: [address] [place] [address]: P: 76 [place]: 216 QRS: 66 T: 34 INTERPRETIVE STATEMENTS: Sinus rhythm with 1st degree AV block with premature atrial complexes with aberrant conduction Anteroseptal infarct, age undetermined Abnormal ECG Compared to ECG 05/11/2019 13:19:49 Aberrant conduction of supraventricular beat(s) now present Left-axis deviation no longer present Myocardial infarct finding still present Electronically Signed On 06-08-19 17:43:49 CDT by Maksim Glass
[2019-06-08 17:47] LABS: Protime INR 1.03
[2019-06-08 17:57] LABS: ALT/SGPT 37 U/L (12-78); AST/SGOT 38 U/L (15-37); Albumin 2.9 g/dL (3.4-5.0); Alkaline Phosphatase 100 U/L (45-117); BUN Blood Urea Nitrogen 40 mg/dL (7-18); Bicarbonate 30 mmol/L (21-32); Bilirubin Direct 0.2 mg/dL (0-0.2); Bilirubin Total 0.4 mg/dL (0.2-1.0); Glucose Level 159 mg/dL (74-106); Magnesium 2.4 mg/dL (1.8-2.4); NT PRO-BNP 17234 pg/mL (<450); Potassium 3.8 mmol/L (3.5-5.1); Protein, Total 7.5 g/dL (6.4-8.2); Sodium Level 133 mmol/L (136-145); Troponin (Emerg Dept Use Only) < 0.02 ng/mL (0.0-0.045)
--- NOTE | 2019-06-08 18:21 | ER ---
Nurse's Notes [facility] Name: Erendira Graham Age: 88 yrs Sex: Female : 1930 Arrival Date: 06/08/2019 Time: 15:42 Bed 18 Private MD: Diagnosis: Acute frontal sinusitis Presentation: 06/07 16:30 Chief complaint: Patient states: Reports R sided headache and states, " I just don't ph feel good." Denies N/V, cough, fever, or chills, hx of dialysis M, W, F but did not go today. Coronavirus screen: The patient has NOT traveled to a country currently being monitored by the [facility] [place] 2[place] within the last 14 days. The patient has NOT had contact with any known and/or suspected case of coronavirus. Ebola Screen: No symptoms or risks identified at this time. Initial Sepsis Screen: Does the patient meet any 2 criteria? No. Patient's initial sepsis screen is negative. Does the patient have a suspected source of infection? No. Patient's initial sepsis screen is negative. Risk Assessment: Do you want to hurt yourself or someone else? Patient reports no desire to harm self or others. 16:30 Method Of Arrival: Wheelchair ph 16:30 Acuity: KEKE 3 ph 16:30 Onset of symptoms was June 08, 2019. wh 16:30 Onset of symptoms was June 08, 2019. Triage Assessment: 16:45 Headache History: Denies prior headaches. General: Appears in no apparent distress. Behavior is calm, cooperative, appropriate for age. 16:45 Pain: Pain currently is 4 out of 10 on a pain scale. Pain began suddenly, Also wh complains of no other associated symptoms. Historical: - Allergies: 16:33 Karlene; ph 16:33 Bactrim; ph 16:33 Ciprofloxacin; ph 16:33 Demerol; ph 16:33 PENICILLINS; ph 16:33 Talwin; ph 16:33 tequin; ph - PMHx: 16:33 CHF; Diabetes - NIDDM; Dialysis; ESRD; Hypertension; ph - Immunization history:: Adult Immunizations unknown. - Social history:: Smoking status: Patient denies any tobacco usage or history of. Screenin:45 Abuse screen: Denies threats or abuse. Denies injuries from another. Nutritional screening: No deficits noted. Tuberculosis screening: No symptoms or risk factors identified. Fall Risk None identified. Assessment: 16:30 General: Appears in no apparent distress. Behavior is calm, cooperative, appropriate wh for age. Pain: Complains of pain in right frontal sinus and forehead Pain does not radiate. Pain currently is 4 out of 10 on a pain scale. Quality of pain is described as aching, pressure, Pain began suddenly. Neuro: Level of Consciousness is awake, alert, obeys commands, Oriented to person, place, time, situation, Appropriate for age. Neuro: Reports headache in right. Cardiovascular: Heart tones S1 S2. Respiratory: Airway is patent Respiratory effort is even, unlabored, Respiratory pattern is regular, symmetrical, Breath sounds are clear bilaterally. GI: Abdomen is flat, non-distended. : No signs and/or symptoms were reported regarding the genitourinary system. EENT: No signs and/or symptoms were reported regarding the EENT system. Derm: Skin is intact, is healthy with good turgor, Skin is pink, warm \\T\\ dry. normal. Musculoskeletal: Circulation, motion, and sensation intact. 17:45 Reassessment: Patient appears in no apparent distress at this time. No changes from previously documented assessment. Patient and/or family updated on plan of care and expected duration. Pain level reassessed. Patient is alert, oriented x 3, equal unlabored respirations, skin warm/dry/pink. 18:50 Reassessment: Patient appears in no apparent distress at this time. No changes from previously documented assessment. Patient and/or family updated on plan of care and expected duration. Pain level reassessed. Patient is alert, oriented x 3, equal unlabored respirations, skin warm/dry/pink. Vital Signs: 16:30 BP 152 / 44; Pulse 95; Resp 18; Temp 98.6; Pulse Ox 100% on R/A; Weight 68.04 kg; ph 17:30 BP 146 / 46; Pulse 72; Resp 18; Pulse Ox 100% on R/A; wh 18:30 BP 138 / 68; Pulse 78; Resp 18; Pulse Ox 99% ; wh ED Course: 15:42 Patient arrived in ED. ag5 16:20 Escobar Rhoades PA is PHCP. sendy 16:20 Curly Mares MD is Attending Physician. sendy 16:21 Lindsey Veras is Primary Nurse. 16:30 Patient has correct armband on for positive identification. Bed in low position. Call light in reach. Side rails up X 1. relay associate on. Pulse ox on. NIBP on. 16:32 Triage completed. ph 16:34 Arm band placed on Patient placed in an exam room. ph 16:43 CT Head Brain wo Cont In Process Unspecified. EDMS 17:02 XRAY Chest (1 view) In Process Unspecified. EDMS 17:15 Inserted saline lock: 22 gauge in right forearm, using aseptic technique. Blood wh collected. 19:00 No provider procedures requiring assistance completed. IV discontinued, intact, wh bleeding controlled, No redness/swelling at site. Administered Medications: 18:36 Drug: Rocephin 1 grams Route: IV; Rate: calculated rate; Site: right forearm; wh Outcome: 18:20 Discharge ordered by . [facility] 19:00 Patient left the ED. 19:00 Discharged to home via wheelchair, with family. 19:00 Condition: stable 19:00 Discharge instructions given to patient, family, Instructed on discharge instructions, follow up and referral plans. medication usage, POC Demonstrated understanding of instructions, follow-up care, medications, POC Prescriptions given X 1. Signatures: Dispatcher [employer] EDDE Escobar Rhoades PA PA jmm Hall, Patricia, JONH RN Lindsey Yañez Marva Mcintyre ag5
--- NOTE | 2019-06-08 18:22 | EDPHYS ---
Physician Documentation [facility] Name: Erendira Graham Age: 88 yrs Sex: Female : 1930 Arrival Date: 06/08/2019 Time: 15:42 Bed 18 Private MD: ED Physician Curly Mares HPI: 06/07 16:52 This 88 yrs old Black Female presents to ER via Wheelchair with complaints of Headache, jmm Doesn't Feel Right. 16:52 The patient complains of pain to the forehead. Onset: The symptoms/episode jmm began/occurred gradually, today. Associated signs and symptoms: Pertinent negatives: dizziness, fever, neck stiffness, paresthesias, sinus congestion. This is an 88 year old female with a history of CHF, DM, ESRD, HTN that presents to the ED with complaints of headache beginning this morning with fatigue and weakness. Denies cough, fever, sore throat, abdominal pain, or shortness of breath. . Historical: - Allergies: 16:33 Karlene; ph 16:33 Bactrim; ph 16:33 Ciprofloxacin; ph 16:33 Demerol; ph 16:33 PENICILLINS; ph 16:33 Talwin; ph 16:33 tequin; ph - PMHx: 16:33 CHF; Diabetes - NIDDM; Dialysis; ESRD; Hypertension; ph - Immunization history:: Adult Immunizations unknown. - Social history:: Smoking status: Patient denies any tobacco usage or history of. ROS: 16:52 Constitutional: Positive for fatigue. jmm 16:52 Cardiovascular: Negative for chest pain. 16:52 Respiratory: Negative for cough, shortness of breath. 16:52 Abdomen/GI: Negative for abdominal pain, nausea and vomiting. 16:52 All other systems are negative. Exam: 16:52 Constitutional: This is a well developed, well nourished patient who is awake, alert, jmm and in no acute distress. Head/Face: atraumatic. Eyes: EOMI, no conjunctival erythema appreciated ENT: Moist Mucus Membranes Neck: Trachea midline, Supple Chest/axilla: Normal chest wall appearance and motion. Cardiovascular: Regular rate and rhythm. No edema appreciated Respiratory: Normal respirations, no respiratory distress appreciated Abdomen/GI: Non distended, soft Back: Normal ROM Skin: General appearance color normal MS/ Extremity: Moves all extremities, no obvious deformities appreciated, no edema noted to the lower extremities Neuro: Awake and alert, normal gait Psych: Behavior is normal, Mood is normal, Patient is cooperative and pleasant 18:17 Head/face: Sinus tenderness, that is moderate, is located over the right frontal [facility] sinus, no temporal tenderness. Vital Signs: 16:30 BP 152 / 44; Pulse 95; Resp 18; Temp 98.6; Pulse Ox 100% on R/A; Weight 68.04 kg; ph 17:30 BP 146 / 46; Pulse 72; Resp 18; Pulse Ox 100% on R/A; wh 18:30 BP 138 / 68; Pulse 78; Resp 18; Pulse Ox 99% ; wh MDM: 16:23 Patient medically screened. [facility] 18:17 Data reviewed: vital signs, nurses notes. Counseling: I had a detailed discussion with janet the patient and/or guardian regarding: the historical points, exam findings, and any diagnostic results supporting the discharge/admit diagnosis, lab results, radiology results, the need for outpatient follow up, to return to the emergency department if symptoms worsen or persist or if there are any questions or concerns that arise at home. ED course: Patient is alert and non toxic in appearance in the ED. No chest pain, no shortness of breath. Labs unremarkable. PE findings consistent with sinusitis. I do not suspect temporal arteritis, meningitis, SAH. Patient is advised to follow up with pcp and otherwise given strict return precautions. Patient understood and agrees with the plan of care. . 06/07 16:26 Order name: Basic Metabolic Panel; Complete Time: 17:58 [facility] 06/07 16:26 Order name: CBC with Diff; Complete Time: 17:45 [facility] 06/07 16:26 Order name: LFT's; Complete Time: 17:58 [facility] 06/07 16:26 Order name: Magnesium; Complete Time: 17:58 [facility] 06/07 16:26 Order name: NT PRO-BNP; Complete Time: 17:58 [facility] 06/07 16:26 Order name: PT-INR; Complete Time: 17:54 [facility] 06/07 16:26 Order name: Troponin (emerg Dept Use Only); Complete Time: 17:58 [facility] 06/07 16:26 Order name: XRAY Chest (1 view); Complete Time: 17:24 [facility] 06/07 16:26 Order name: EKG; Complete Time: 16:27 [facility] 06/07 16:26 Order name: Cardiac monitoring; Complete Time: 17:28 [facility] 06/07 16:26 Order name: EKG - Nurse/Tech; Complete Time: 17:28 [facility] 06/07 16:26 Order name: CT Head Brain wo Cont; Complete Time: 17:24 [facility] 06/07 16:49 Order name: Flu; Complete Time: 17:54 [facility] 06/07 16:26 Order name: IV Saline Lock; Complete Time: 17:28 [facility] 06/07 16:26 Order name: Labs collected and sent; Complete Time: 17: [facility] 06/07 16:26 Order name: O2 Per Protocol; Complete Time: : [facility] 06/07 16:26 Order name: O2 Sat Monitoring; Complete Time: 17: [facility] Administered Medications: 18:36 Drug: Rocephin 1 grams Route: IV; Rate: calculated rate; Site: right forearm; Disposition: 06/08/19 18:20 Discharged to Home. Impression: Acute frontal sinusitis. - Condition is Stable. - Discharge Instructions: Sinusitis, Adult. - Prescriptions for cefdinir 300 mg Oral capsule - take 1 capsule by ORAL route every 12 hours for 10 days; 20 capsule. - Medication Reconciliation Form, Thank You Letter, Antibiotic Education, Prescription Opioid Use form. - Follow up: Private Physician; When: 1 - 2 days; Reason: Recheck today's complaints, Continuance of care, Re-evaluation by your physician. Addendum: 06/21/2019 21:20 Co-signature as Attending Physician, Curly Mares MD available for consultation at [facility] all times. . Signatures: Dispatcher [employer] EDGA Escobar Rhoades PA PA jmm Hall, Patricia, RN RN ph Habalo, Winsy wh Singer, Phillip, MD MD ps1 Corrections: (The following items were deleted from the chart) 06/07 19:00 18:20 06/08/2019 18:20 Discharged to Home. Impression: Acute frontal sinusitis. Condition is Stable. Forms are Medication Reconciliation Form, Thank You Letter, Antibiotic Education, Prescription Opioid Use. Follow up: Private Physician; When: 1 - 2 days; Reason: Recheck today's complaints, Continuance of care, Re-evaluation by your physician. sendym
[2019-06-08] MEDS ORDERED: CEFTRIAXONE/SWI 1gm 1 GM/10 ML SYR ONE (18:32)
== END 2019-06-08 19:00 | disposition home or self-care (01) ==
LOC: ER 15:39
DX: J01.10 Acute frontal sinusitis, unspecified (principal); E11.22 Type 2 diabetes mellitus with diabetic chronic kidney disease; I12.0 Hypertensive chronic kidney disease with stage 5 chronic kidney disease or end stage renal disease; N18.6 End stage renal disease; Z99.2 Dependence on renal dialysis; Z88.0 Allergy status to penicillin; Z88.1 Allergy status to other antibiotic agents; Z88.5 Allergy status to narcotic agent; Z88.8 Allergy status to other drugs, medicaments and biological substances
CPT/HCPCS: 93005; 85025; 80048; 36415; 83735; 85610; 80076; 84484; 83880; 87804 ×2; 70450; 71045; 96374; 99284; J0696

== ENCOUNTER 2019-08-04 18:41 | Inpatient (IN) | payer OTHER ==
--- OUTSIDE RECORDS SUMMARY | 2019-08-04 18:44 | XMS REPORT | Clinical Summary ---
:1930 Author Organization [facility] Address [address] [place] [address] Care Team Providers Name Role Phone Leonid Marie MD Primary Care Provider Allergies Active Allergy Reactions Severity Noted Date Comments Fexofenadine Other (See Comments) 09/25/2015 Karlene - "makes her sick" per pt daughter Ciprofloxacin Other (See Comments) 09/25/2015 Ciprof loxacin - unknown reaction per pt and pt daughter Gatifloxacin 09/25/2015 Penicillin G Other (See Comments) 09/25/2015 Penicil laurie - unknown per pt and pt daughter [...] day. hydrALAZINE Take 100 mg by 0 Act speedy (APRESOLINE) 100 MG mouth 3 (three) tablet [...] NIFEdipine XL Take 90 mg by 0 Ac tive (PROCARDIA XL) 90 MG 24 mouth 2 [...] Health Maintenance Due Date Last Done Comments DIABETIC RETINAL EYE EXAM 1930 DIABETIC FOOT EXAM 1940 URINE MICROALBUMIN 1940 SHINGLES VACCINES (#1) 1980 65+ PNEUMOCOCCAL VACCINE (1 of 2 - PCV13) 09/27/1995 INFLUENZA VACCINE 10/20/2019 Results Not on fileafter 08/03/2018 Insurance Payer Benefit Plan / Subscriber ID Effective Dates Phone Addre ss Type Group MEDICARE MEDICARE PART A xxxxxxxxxx 1995-Present [facility] [place] Medicare AND B AETNA AETNA PPO OPEN xxxxxxxxxx 1995-Present PPO CHOICE Advance Directives For more information, please contact: [phone] Type Date Recorded Patient [employer] Explanati on Advance Directives, Living Will and Medical Power of Trial Judge
--- OUTSIDE RECORDS SUMMARY | 2019-08-04 18:45 | XMS REPORT | Clinical Summary ---
:1930 Author Organization [facility] Address [address] [place] [address] Care Team Providers Name Role Phone Unavailable Primary Care Provider Unavailable Allergies Active Allergy Reactions Severity Noted Date Comments Sulfamethoxazole-Trimethoprim 02/16/2019 Ciprofloxacin 02/16/2019 Penicillins 02/16/2019 Gatifloxacin 02/16/2019 Medications Medication Sig Dispensed Refills Start Date End Date Status aspirin 81 MG EC Take 81 mg by 0 Active tablet mouth daily. clopidogrel (PLAVIX) Take 75 mg by 0 Active 75 mg tablet mouth daily. hydrALAZINE Take 100 mg by 0 Act speedy (APRESOLINE) 100 MG mouth 2 (two) tablet times daily. isosorbide Take 90 mg by 0 Activ e mononitrate (IMDUR) mouth daily. 30 MG 24 hr tablet doxazosin (CARDURA) 8 Take 8 mg by 0 Active MG tablet mouth 2 (two) times daily. docusate sodium Take 100 mg by 0 Active (COLACE) 100 MG mouth 2 (two) capsule times daily. calcium carbonate Take 2 tablets 0 Active (TUMS) 500 mg by mouth daily. chewable tablet cyanocobalamin, Take 1,000 mcg 0 Active vitamin B-12, 1000 by mouth daily. MCG tablet acetaminophen Take 500 mg by 0 A ctive (TYLENOL) 500 MG mouth every 6 tablet (six) hours as needed for Pain. acetaminophen-codeine Take 1 tablet 0 Active (TYLENOL #3) 300-30 by mouth every mg per tablet 4 (four) hours as needed for Pain. atorvastatin Take 80 mg by 0 Act speedy (LIPITOR) 80 MG mouth daily. tablet NIFEdipine (ADALAT Take 90 mg by 0 Active CC) 90 MG 24 hr mouth 2 (two) tablet times daily. ramipril (ALTACE) 10 Take 10 mg by 0 Active MG capsule mouth daily. sertraline (ZOLOFT) Take 50 mg by 0 Active 50 MG tablet mouth daily. cholecalciferol, Take 5,000 0 Ac tive vitamin D3, 1,000 Units by mouth unit capsule daily. melatonin 3 mg Tab Take 5 mg by 0 Active tablet mouth every night as needed. doxycycline (MONODOX) Take 1 capsule 14 capsule 0 02/19/2019 1 04/29/2018 100 MG capsule (100 mg total) by mouth every 12 (twelve) hours for 7 days. acetaminophen-codeine Take 1 tablet 30 tablet 0 02/19/201902/2019 (TYLENOL #3) 300-30 by mouth every mg per tablet 4 (four) hours as needed for up to 10 days. Max Daily Amount: 6 tablets Active Problems Problem Noted Date Essential hypertension 02/17/2019 Anemia of chronic disease 02/17/2019 Acute encephalopathy 02/17/2019 Acute ischemic stroke 02/16/2019 ESRD on hemodialysis Encounters Date Type Specialty Care Team Description 02/17/2019 Travel 02/16/2019 - [facility] General Internal [facility], Acute encep halopathy (Primary Dx); 02/19/2019 Encounter Medicine Debby Johns MD Acute ischemic stroke ([facility]); Lias Choi, Anemia of ch ronic disease; ESRD on hemodialysis ([facility]); Fabiola Pratt Essential hype rtension MD Poppy after 08/03/2018 Social History Tobacco Use Types Packs/Day Years Used Date Never Smoker Smokeless Tobacco: Never Used Tobacco Cessation: Counseling Given: No Sex Assigned at Date Recorded Not on file Job Start Date Occupation Industry Not on file Not on file Not on file Travel History Travel Start Travel End No recent travel history available. Last Filed Vital Signs Vital Sign Reading Time Taken Blood Pressure 145/67 02/19/2019 11:41 AM [employer] Pulse 79 02/19/2019 11:41 AM [employer] Temperature 36.9 C (98.5 F) 02/19/2019 11:41 AM [employer] Respiratory Rate 20 02/19/2019 11:41 AM [employer] Oxygen Saturation 92% 02/19/2019 11:41 AM [employer] Inhaled Oxygen Concentration - - Weight 66.8 kg (147 lb 4.3 oz) 02/19/2019 10:57 AM [employer] Height 165.1 cm (5' 5") 02/16/2019 4:00 PM [employer] Body Mass Index 24.51 02/19/2019 10:57 AM [employer] Plan of Treatment Not on file Procedures Procedure Name Priority Date/Time Associated Comments Diagnosis RHYTHM STRIP - SCAN 02/22/2019 8:50 AM [employer] POCT-GLUCOSE METER Routine 02/19/2019 11:58 Resul ts for this AM [employer] procedure are i n the results section. HEMODIALYSIS INPATIENT Routine 02/19/2019 7:05 AM [employer] CBC W/PLT COUNT & AUTO Routine 02/19/2019 4:24 R esults for this DIFFERENTIAL AM [employer] procedure are i n the results section. CBC W/PLT COUNT & AUTO Routine 02/19/2019 4:24 R esults for this DIFFERENTIAL AM [employer] procedure are i n the results section. POCT-GLUCOSE METER Routine 02/18/2019 8:49 Resul ts for this PM [employer] procedure are i n the results section. POCT-GLUCOSE METER Routine 02/18/2019 5:11 Resul ts for this PM [employer] procedure are i n the results section. POCT-GLUCOSE METER Routine 02/18/2019 9:01 Resul ts for this AM [employer] procedure are i n the results section. CBC W/PLT COUNT & AUTO Routine 02/18/2019 4:57 R esults for this DIFFERENTIAL AM [employer] procedure are i n the results section. CBC W/PLT COUNT & AUTO Routine 02/18/2019 4:57 R esults for this DIFFERENTIAL AM [employer] procedure are i n the results section. COMPREHENSIVE Routine 02/18/2019 4:57 Results fo r this METABOLIC PANEL AM [employer] procedure ar e in the results section. POCT-GLUCOSE METER Routine 02/17/2019 10:41 Resul ts for this PM [employer] procedure are i n the results section. ECHOCARDIOGRAM REPORT 02/17/2019 9:21 - SCAN PM [employer] POCT-GLUCOSE METER Routine 02/17/2019 5:58 Resul ts for this PM [employer] procedure are i n the results section. MR BRAIN WITHOUT IV Routine 02/17/2019 3:41 Resu lts for this CONTRAST PM [employer] procedure are i n the results section. WOUND CULTURE + GRAM Routine 02/17/2019 1:10 Res ults for this STAIN PM [employer] procedure are i n the results section. POCT-GLUCOSE METER Routine 02/17/2019 11:51 Resul ts for this AM [employer] procedure are i n the results section. DRUG SCREEN, URINE, Routine 02/17/2019 11:30 COMPREHENSIVE AM [employer] URINALYSIS W/ REFLEX Routine 02/17/2019 11:30 Res ults for this URINE CULTURE AM [employer] procedure are in the results section. URINE CULTURE Routine 02/17/2019 11:30 Results fo r this AM [employer] procedure are i n the results section. HEMOGLOBIN A1C Routine 02/17/2019 7:34 Results f or this AM [employer] procedure are i n the results section. VITAMIN B12 AND FOLATE Routine 02/17/2019 7:34 R esults for this AM [employer] procedure are i n the results section. CBC W/PLT COUNT & AUTO Routine 02/17/2019 4:52 R esults for this DIFFERENTIAL AM [employer] procedure are i n the results section. CBC W/PLT COUNT & AUTO Routine 02/17/2019 4:52 R esults for this DIFFERENTIAL AM [employer] procedure are i n the results section. COMPREHENSIVE Routine 02/17/2019 4:52 Results fo r this METABOLIC PANEL AM [employer] procedure ar e in the results section. LIPID PANEL Routine 02/17/2019 4:52 Results for this AM [employer] procedure are i n the results section. POCT-GLUCOSE METER Routine 02/17/2019 12:10 Resul ts for this AM [employer] procedure are i n the results section. HEMODIALYSIS INPATIENT Routine 02/16/2019 9:41 PM [employer] 2D ECHO W/ DOPPLER Routine 02/16/2019 7:06 Resul ts for this (CW/PW/COLOR) PM [employer] procedure are in the results section. CBC W/PLT COUNT & AUTO Routine 02/16/2019 6:41 R esults for this DIFFERENTIAL PM [employer] procedure are i n the results section. HEPATITIS C ANTIBODY Add-On 02/16/2019 6:41 Res ults for this PM [employer] procedure are i n the results section. HEPATITIS B SURFACE MARILEE 02/16/2019 6:41 Resu lts for this ANTIGEN PM [employer] procedure are i n the results section. CBC W/PLT COUNT & AUTO Routine 02/16/2019 6:41 R esults for this DIFFERENTIAL PM [employer] procedure are i n the results section. VITAMIN B12 Routine 02/16/2019 6:41 Results for this PM [employer] procedure are i n the results section. RPR Routine 02/16/2019 6:41 Results for this PM [employer] procedure are i n the results section. TSH Routine 02/16/2019 6:41 Results for this PM [employer] procedure are i n the results section. HEMOGLOBIN A1C AP Routine 02/16/2019 6:41 Results f or this PM [employer] procedure are i n the results section. TROPONIN I Routine 02/16/2019 6:41 Results for this PM [employer] procedure are i n the results section. PROTHROMBIN TIME/INR Routine 02/16/2019 6:41 Res ults for this PM [employer] procedure are i n the results section. COMPREHENSIVE Routine 02/16/2019 6:41 Results fo r this METABOLIC PANEL PM [employer] procedure ar e in the results section. XR CHEST 1 VIEW MARILEE 02/16/2019 5:21 Results for this PORTABLE/BEDSIDE PM [employer] procedure a re in the results section. after 08/03/2018 Results RHYTHM STRIP - SCAN (02/22/2019 8:50 AM [employer]) Narrative Performed At This result has an attachment that is no t available. POC-Glucose meter (02/19/2019 11:58 AM [employer])Only the most recent of8 results within the time period is included. POC-Glucose Meter 77Comment: : TESTED AT 70 - 110 mg/dL [facility] [address] [facility], [id number]: Director Of Category Management/Field Tech ID = [id number] for Agustina Charlottejosephshyla Specimen Blood Performing Organization Address City/State/Zipcode Phone Number [address] [phone] CENTER CBC with platelet count + automated diff (02/19/2019 4:24 AM [employer])Only the most recent of4 resultswithin the time period is included. WBC 7.5 3.5 - 10.5 K/L [facility] RBC 2.47 (L) 3.93 - 5.22 M/L [facility] Hemoglobin 7.5 (L) 11.2 - 15.7 GM/DL [facility] Hematocrit 24.6 (L) 34.1 - 44.9 % [facility] MCV 99.6 (H) 79.4 - 94.8 fL [facility] MCH 30.4 25.6 - 32.2 pg [facility] MCHC 30.5 (L) 32.2 - 35.5 GM/DL [facility] RDW 15.3 (H) 11.7 - 14.4 % [facility] Platelets 183 150 - 450 K/CU MM [facility] MPV 9.6 9.4 - 12.3 fL [facility] nRBC 0 0 - 0 /100 WBC [facility] % Neutros 76 % [facility] % Lymphs 15 % [facility] % Monos 5 % [facility] % Eos 4 % [facility] % Baso 0 % [facility] # Neutros 5.70 1.56 - 6.13 K/L [facility] # Lymphs 1.11 (L) 1.18 - 3.74 K/L [facility] # Monos 0.39 (H) 0.24 - 0.36 K/L [facility] # Eos 0.28 0.04 - 0.36 K/L [facility] # Baso 0.02 0.01 - 0.08 K/L [facility] Immature Granulocytes-Relative 0 0 - 1 % C HI [facility] Specimen Blood Performing Organization Address City/State/Zipcode Phone Number [facility] [address] [place] [address] CENTER Comprehensive metabolic panel (02/18/2019 4:57 AM [employer])Only the most recent of3 resultswithin the time period is included. Protein, Total 6.2 6.0 - 8.3 gm/dL [facility] ER Albumin 3.1 (L) 3.5 - 5.0 g/dL [facility] ER Alkaline Phosphatase 89 40 - 150 U/L [facility] ER Total Bilirubin 0.5 0.2 - 1.2 mg/dL [facility] Sodium 137 136 - 145 meq/L [facility] Potassium 4.4 3.5 - 5.1 meq/L [facility] Chloride 101 98 - 107 meq/L [facility] ER CO2 28 22 - 29 meq/L [facility] ER BUN 19 7 - 21 mg/dL [facility] ER Creatinine 4.63 (H) 0.57 - 1.25 mg/dL [facility] ER Glucose 75 70 - 105 mg/dL [facility] ER Calcium 8.6 8.4 - 10.2 mg/dL [facility] H [facility] ER AST 34 5 - 34 U/L [facility] ER ALT 21 6 - 55 U/L [facility] ER EGFR 11Comment: ESTIMATED GFR mL/min/1.73 sq m [facility] IS NOT ACCURATE [facility] CREATININE CLEARANCE IN PREDICTING GLOMERULAR FILTRATION RATE. ESTIMATED GFR IS NOT APPLICABLE FOR DIALYSIS PATIENTS. Specimen Blood Performing Organization Address City/State/Zipcode Phone Number [facility] [address] [place] [address] CENTER ECHOCARDIOGRAM REPORT - SCAN (02/17/2019 9:21 PM [employer]) Narrative Performed At This result has an attachment that is no t available. MR brain without IV contrast (02/17/2019 3:41 PM [employer]) Specimen Narrative Performed At FINAL REPORT Good Photo MR, BRAIN, WITHOUT CONTRAST INDICATION: Stroke, follow up TECHNIQUE: Multiplanar, multisequence MR imaging of the brain without intravenous contrast. COMPARISON: None FINDINGS: Intracranial: Generalized cerebral atrop hy with ex vacuo dilatation of the ventricular system proportionate to sulci. Scattered foci of T2 prolongation within the periventricul ar and subcortical white matter are a nonspecific finding commonl y attributed to chronic small vessel ischemic disease. No intracranial hemorrhage. No restricted diffusion to suggest acute infarct. No m ass effect.No hydrocephalus. Visualized intracranial f low voids are of normal course and caliber. Sinuses: No evidence of sinusitis. Masto ids are clear. Orbits: Globes are intact. Calvarium \\T\\ scalp: Unremarkable. IMPRESSION: No acute infarct or intracranial hemorrh age. Generalized parenchymal volume loss and chronic microvascular changes, commensurate with age. Signed: Kerrie Abraham MD Report Verified Date/Time:02/17/2019 16:05:48 Procedure Note Interface, External Ris In - 02/17/2019 4:08 PM [employer] FINAL REPORT MR, BRAIN, WITHOUT CONTRAST INDICATION: Stroke, follow up TECHNIQUE: Multiplanar, multisequence MR imaging of the brain without intravenous contrast. COMPARISON: None FINDINGS: Intracranial: Generalized cerebral atrop hy with ex vacuo dilatation of the ventricular system proportionate to sulci. Scattered foci of T2 prolongation within the periventricul ar and subcortical white matter are a nonspecific finding commonl y attributed to chronic small vessel ischemic disease. No intracranial hemorrhage. No restricted diffusion to suggest acute infarct. No m ass effect. No hydrocephalus. Visualized intracranial f low voids are of normal course and caliber. Sinuses: No evidence of sinusitis. Masto ids are clear. Orbits: Globes are intact. Calvarium \\T\\ scalp: Unremarkable. IMPRESSION: No acute infarct or intracranial hemorrh age. Generalized parenchymal volume loss and chronic microvascular changes, commensurate with age. Signed: Kerrie Abraham MD Report Verified Date/Time: 02/17/2019 1 6:05:48 Performing Organization Address City/State/Zipcode Phone Number [facility] Wound culture + gram stain (02/17/2019 1:10 PM [employer]) Result No growth [facility] Gram Stain Result <1+ WBCs [facility] Gram Stain Result No organisms seen [facility] Specimen Abscess Performing Organization Address City/State/Zipcode Phone Number [facility] [address] [place] [address] [place] Urinalysis w/Microscopic + Reflex to Culture (02/17/2019 11:30 AM [employer]) Color, UA Yellow [facility] Clarity, UA Hazy [facility] Specific [place], UA 1.011 1.001 - 1.035 [facility] pH, UA 8.5 (H) 5.0 - 8.0 [facility] Protein, UA 300 mg/dL (A) Negative [facility] Glucose, UA Negative Negative [facility] Ketones, UA Negative Negative [facility] Bilirubin, UA Negative Negative [facility] Blood, UA Trace (A) Negative [facility] Nitrite, UA Positive (A) Negative [facility] Leukocytes, UA Large (A) Negative [facility] Urobilinogen, UA 0.2 0.2 - 1.0 mg/dL [facility] RBC, UA 9 /HPF [facility] WBC, UA 24 /HPF [facility] Bacteria, UA Moderate [facility] Mucus Many [facility] Squam Epithel, UA 50 /HPF [facility] Specimen Source [facility] Specimen Urine Performing Organization Address City/State/Zipcode Phone Number [facility] [address] [place] [address] [place] Drug screen, urine, comprehensive (02/17/2019 11:30 AM [employer]) Specimen Urine Narrative Performed At This result has an attachment that is no t available. Urine culture (02/17/2019 11:30 AM [employer]) Result 40-49,000 col/mL skin rena [facility] Specimen Urine Performing Organization Address [facility] Phone Number [address] [address] [place] Vitamin B12 and Folate (02/17/2019 7:34 AM [employer]) Vitamin B12 >2000 (H) 213 - 816 pg/mL [facility] Folate 16.5 >=7.0 ng/mL [facility] Specimen Blood Performing Organization Address [facility] Phone Number [address] [address] [place] Hemoglobin A1c (02/17/2019 7:34 AM [employer])Only the most recent of2 resultswithin the time period is included. Hemoglobin A1C 4.3 4.3 - 6.1 % [facility] Specimen Blood Performing Organization Address [facility] Phone Number [address] [address] [place] Fasting lipid panel (02/17/2019 4:52 AM [employer]) Triglycerides 61 mg/dL [facility] Cholesterol 104 mg/dL [facility] HDL 56 mg/dL [facility] LDL Calculated 36 mg/dL [facility] Specimen Blood Narrative Performed At Triglyceride Reference Range: [facility] Low Risk <150 [id number] High Risk 200-499 Very High Risk>=500 Cholesterol Reference Range: Low Risk <200 Mgbsatavom167-428 High Risk>240 HDL Cholesterol Reference Range: Low Risk >=60 High Risk <40 LDL Cholesterol Reference Range: Optimal<100 Near [id number] [id number] Inzq961-683 Very High >=190 Fasting Performing Organization Address [facility] Phone Number [facility] [address] CENTER 2D Echo W/Doppler(CW/PW/Color) (02/16/2019 7:06 PM [employer]) Ejection Fraction [facility] ECHO HEAR TLAB [facility] Specimen Narrative Performed At Transthoracic Echocardiography Report (T TE) [facility] ECHO HEARTLAB [facility] Demographics Patient Name RUBI,Date of Study 02/16/2019 ERENDIRA [id number] GenderFema Visit Number [id number] Room Number 7407 Number Date of Birth1Referring Physician Debby Velez Age88 year(s)Electromyographic Technician Trevor Lambert InterpretingBrianna Dotson MD Procedure Type of Study TTE procedure:2DECHO W DOPPLER(CW/PW/COLOR) (Routine) Indications:Suspected cardiac source of emboli. Clinical History HTN, HLD, CAD, HX OF CAROTID ENDARTERECTOMY, ESRD, CHF Contrast Medium: Bubble Study. Height: 65 inches Weight: 75.75 kg (167 lbs) BSA: 1.83 m^2 BMI: 27.79 kg/m^2 HR: 82 bpm BP: 183/52 mmHg Summary 1. Normal LV size and function. Estimated LVEF is normal (60%) . 2. Normal RV size and function. 3. Grade 2 diastolic dysfunction (moderately increased LA pressure) 4. Mild aortic stenosis. CT 1.91 cm2. 5. Augd-fr-fodewzgy tricuspid regurgita tion. 6. Estimated peak systolic PA pressure is 55-60 mmHg Previous Study No prior exam available for comparison. Signature Findings Technical Quality: Technically fair exam . Left Ventricle The left ventricle is chamber size (by PSLAX di mension) is normal (female - LVIDd 3.8-5 .2cm) . No rmal LV wall thickness. Al l of the LV segments contract normally . Gl obal LV systolic function normal . Es timated LVEF by qualitative assessment i s normal (> 60%) . Gr shannen 2 diastolic dysfunction (moderately increased LA pressure). Left AtriumLA size is moderately enlarged (42-48 ml/m2) . Right VentricleThe right ventricular chamber size and systolic fu nction are within normal limits. Right Atrium The RA is partially visualized. Aortic Valve Mild AoV cusp thickening. Mi ld AoV cusp calcification. Ao V cusp mobility is mildly decreased . Mi ld aortic stenosis. Ao V area at rest by continuity equation is in the ra nge of 1.91 cm2. Mitral Valve Mild mitral annular calcification. Mi ld MV leaflet thickening. Tricuspid YyulsWcfj-kn-txmvvpxb tricuspid regurgitation. Es timated peak systolic PA pressure is 55- 60 mmHg . Pulmonic Valve Mild pulmonary regurgitation. No rmal PV structure and function by limite d views an d Doppler. AortaAortic root size (SInus of Valsalva diameter) i s no rmal . PericardiumNo significant pericardial effusion is visualized. IVC/SVC/PA/PV/PleuralA left pleural effusion is noted. Th e estimated RA pressure by IVC dynamics 5-10mmHg . Chambers/Structures Left Atrium LA Volume: 86.35 ml LA Area: 25.32 cm^2 LA Vol. Index: 47 ml/m^2 Left Ventricle LVIDd: 4.71 cm LVEDV:61.87 ml LV Septum Diastolic: 0.82 cm LV PW Diastolic: 0.94 cm LV Length: 7.7 cm LVOT Diameter: 1.84 cm Right Ventricle TAPSE: 1.75 cm Aorta Ao Root S of Esperanza.: 2.42 cm Doppler/Quantitative Measurements Mitral Valve MV Peak E-Wave: 1.46 m/sMV Peak A-Wave: 1.12 m/s E/A Ratio: 1. 3 Mean Velocity: 0.7 m/sPeak Gradient: 8.52 mmHg Mean Gradient: 2.44 mmHgDeceleration Time: 200.3 msec Area (continuity): 2.2 cm^2 MV VTI: 36.4 cm MV Santi. Peak: 1.39 m/s Tissue Doppler E' Lateral Velocity: 0.06 m/s Aortic Valve Peak Velocity: 1.95 m/sMean Velocity: 1.4 m/s Peak Gradient: 15.22 mmHgMean Gradient: 9.53 mmHg AV Area (continuity): 1.91 cm^2 AV VTI: 42.07 cm AV DVI: 0.72 LVOT Peak Velocity: 1.4 m/sPeak Gradient: 7.85 mmHg Mean Velocity: 0.91 m/s Mean Gradient: 4 mmHg LVOT Diameter: 1.84 cmLVOT VTI: 30.16 cm LVOT Area: 2.66 cm^2LVOT SV:80.16 ml LVOT CO: 6.57 l/min LVOT CI: 3.59 l/min/m^2 Tricuspid Valve TR Velocity: 3.52 m/s TR Gradient: 49.63 mmHg Procedure Note Interface, External Ris In - 02/17/2019 3:09 PM [employer] Transthoracic Echocardiography Report (TTE) Demographics Patient Name RUBI, Date of Study 02/16/2019 ERENDIRA Gender Female Visit Number [id number] Race Black Room Num [place] [id number] Number Date of 1930 Lucina watkins Physician Debby Velez Age 88 year(s) Sonograp her Trevor Zuñiga Business Control Manager Brianna Mccauley MD Procedure Type of Study TTE procedure:2DECHO W DOPPLE R(CW/PW/COLOR) (Routine) Indications:Suspected cardiac source of emboli. Clinical History HTN, HLD, CAD, HX OF CAROTID ENDARTERECT CM, ESRD, CHF Contrast Medium: Bubble Study. Height: 65 inches Weight: 75.75 kg (167 lbs) BSA: 1.83 m^2 BMI: 27.79 kg/m^2 HR: 82 bpm BP: 183/52 mmHg Summary 1. Normal LV size and function. Estimat ed LVEF is normal (60%) . 2. Normal RV size and function. 3. Grade 2 diastolic dysfunction (moder ately increased LA pressure) 4. Mild aortic stenosis. CT 1.91 cm2. 5. Uiva-fd-vczowdie tricuspid regurgita tion. 6. Estimated peak systolic PA pressure is 55-60 mmHg Previous Study No prior exam available for comparison. Signature Findings Technical Quality: Technically fair exam . Left Ventricle The left ventric le is chamber size (by PSLAX dimension) is no rmal (female - LVIDd 3.8-5.2cm) . Normal LV wall t hickness. All of the LV se gments contract normally . Global LV systol ic function normal . Estimated LVEF b y qualitative assessment is normal (>60%) . Grade 2 diastoli c dysfunction (moderately increased LA pressure). Left Atrium LA size is moder ately enlarged (42-48 ml/m2) . Right Ventricle The right ventri cular chamber size and systolic function are wit hin normal limits. Right Atrium The RA is partia lly visualized. Aortic Valve Mild AoV cusp th ickening. Mild AoV cusp ca lcification. AoV cusp mobilit y is mildly decreased . Mild aortic sten osis. AoV area at rest by continuity equation is in the range of 1.91 cm 2. Mitral Valve Mild mitral hortensia lar calcification. Mild MV leaflet thickening. Tricuspid Valve Ctjj-ub-xtaedsxn tricuspid regurgitation. Estimated peak s ystolic PA pressure is 55-60 mmHg . Pulmonic Valve Mild pulmonary r egurgitation. Normal PV struct ure and function by limited views and Doppler. Aorta Aortic root size (SInus of Valsalva diameter) is normal . Pericardium No significant p ericardial effusion is visualized. IVC/SVC/PA/PV/Pleural A left pleural e ffusion is noted. The estimated RA pressure by IVC dynamics 5-10mmHg . Chambers/Structures Left Atrium LA Volume: 86.35 ml LA Area: 25.32 cm^2 LA Vol. Index: 47 ml/m^2 Left Ventricle LVIDd: 4.71 cm LVEDV:61.87 ml LV Septum Diastolic: 0.82 cm LV PW Diastolic: 0.94 cm LV Length: 7.7 cm LVOT Diameter: 1.84 cm Right Ventricle TAPSE: 1.75 cm Aorta Ao Root S of Esperanza.: 2.42 cm Doppler/Quantitative Measurements Mitral Valve MV Peak E-Wave: 1.46 m/s M V Peak A-Wave: 1.12 m/s E /A Ratio: 1.3 Mean Velocity: 0.7 m/s P eak Gradient: 8.52 mmHg Mean Gradient: 2.44 mmHg D eceleration Time: 200.3 msec A leonela (continuity): 2.2 cm^2 M V VTI: 36.4 cm MV Santi. Peak: 1.39 m/s Tissue Doppler E' Lateral Velocity: 0.06 m/s Aortic Valve Peak Velocity: 1.95 m/s Mean Velocity: 1.4 m/s Peak Gradient: 15.22 mmHg Mean Gradient: 9.53 mmHg AV Area (continuity): 1.91 cm^2 AV VTI: 42.07 cm AV DVI: 0.72 LVOT Peak Velocity: 1.4 m/s Pea k Gradient: 7.85 mmHg Mean Velocity: 0.91 m/s Rubina n Gradient: 4 mmHg LVOT Diameter: 1.84 cm LVO T VTI: 30.16 cm LVOT Area: 2.66 cm^2 LVO T SV:80.16 ml LVOT CO: 6.57 l/min LVO T CI: 3.59 l/min/m^2 Tricuspid Valve TR Velocity: 3.52 m/s TR Gradient: 49.63 mmHg Performing Organization Address City/State/Zipcode Phone Number [facility] Hepatitis C antibody (02/16/2019 6:41 PM OLD COIN DEALER) Hepatitis C Ab Nonreactive Nonreactive [facility] Specimen Blood Performing Organization Address City/State/Zipcode Phone Number [address] [address] CENTER Troponin I (02/16/2019 6:41 PM [employer]ER) Troponin I 0.04 (H) 0.00 - 0.03 ng/mL [facility] Specimen Blood Narrative Performed At Troponin I (TnI) levels must be interpreted [facility] in the context of the presenting symptoms and the clinical findings. Elevated TnI levels indicate myocardial damage, but are not specific for ischemic heart disease. Elevated TnI levels are seen in patients with other cardiac conditions (including myocarditis and congestive heart failure), and slight TnI elevations occur in patients with other conditions, including sepsis, renal failure, acidosis, acute neurological disease, and persistent tachyarrhythmia. Performing Organization Address City/State/Zipcode Phone Number [address] [address] [place] RPR (02/16/2019 6:41 PM O[employer] DEALER) RPR Nonreactive Nonreactive [facility] Specimen Blood Performing Organization Address City/[facility]/Zipcode Phone Number [address] [address] [place] Hepatitis B surface antigen (02/16/2019 6:41 PM O[employer] DEALER) HBsAg Screen Nonreactive Nonreactive [facility] Specimen Blood Performing Organization Address City/[facility]/Zipcode Phone Number [address] [address] [place] Prothrombin time/INR (02/16/2019 6:41 PM O[employer] DEALER) Protime 16.0 (H) 11.9 - 14.2 seconds [facility] INR 1.4 <=5.9 [facility] Specimen Blood Narrative Performed At Effective 08/16/2018: PT Reference Range [facility] Change New: 11.9-14.2Previous: 11.7-14.7 RECOMMENDED COUMADIN/WARFARIN INR THERAPY RANGES STANDARD DOSE: 2.0-3.0Includes: PROPHYLAXIS for venous thrombosis, systemic embolization; TREATMENT for venous thrombosis and/or pulmonary embolus. HIGH RISK: Target INR is 2.5-3.5 for patients wiht mechanical heart valves. Performing Organization Address City/State/Zipcode Phone Number [facility] [address] [place] [phone] CENTER TSH (02/16/2019 6:41 PM O[employer] DEALER) TSH 1.78 0.35 - 4.94 uIU/mL [facility] Specimen Blood Performing Organization Address City/[facility]/Zipcode Phone Number [address] [address] [place] Vitamin B12 (02/16/2019 6:41 PM O[employer] DEALER) Vitamin B12 >2000 (H) 213 - 816 pg/mL [facility] Specimen Blood Performing Organization Address City/[facility]/Zipcode Phone Number [address] [phone] CENTER XR chest 1 view portable / bedside (02/16/2019 5:21 PM O[employer] DEALER) Specimen Narrative Performed At FINAL REPORT [facility] TECHNIQUE: Frontal view of the chest. INDICATION: 88-year-old woman with short ness of breath. COMPARISON: None. FINDINGS: LINES/TUBES: None. LUNGS: The lungs are well inflated. Bila teral airspace opacities. PLEURA: Suspected small left pleural eff usion. No pneumothorax. HEART AND MEDIASTINUM: Prominent cardiac silhouette. SOFT TISSUES AND BONES: Unremarkable. IMPRESSION: Bilateral airspace opacities, likely pul monary edema. Less likely differential consideration includes mult ifocal pneumonia. Prominent cardiac silhouette. 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 INDICATION: 88-year-old woman with short ness of breath. COMPARISON: None. FINDINGS: LINES/TUBES: None. LUNGS: The lungs are well inflated. Bila teral airspace opacities. PLEURA: Suspected small left pleural eff usion. No pneumothorax. HEART AND MEDIASTINUM: Prominent cardiac silhouette. SOFT TISSUES AND BONES: Unremarkable. IMPRESSION: Bilateral airspace opacities, likely pul monary edema. Less likely differential consideration includes mult ifocal pneumonia. Prominent cardiac silhouette. Signed: Priscila Craig MD Report Verified Date/Time: 02/16/2019 1 8:34:17 Reading Location: [facility] Consult R [facility] Room Performing Organization Address City/State/Zipcode Phone Number GE RIS after 08/03/2018 Insurance Payer Benefit Plan / Group Subscriber ID Type Phone A ddress [employer] - MEDICARE MGD [employer] MEDICARE ADV xxxxxxxxx Maps Contracted CARE Advance Directives For more information, please contact:[place] [id number] [place], [place] [phone] Code Status Date Activated Date Inactivated Comments Full Code 02/16/2019 4:33 PM 02/19/2019 6:41 PM This code status was determined by: Patient
--- OUTSIDE RECORDS SUMMARY | 2019-08-04 18:49 | XMS REPORT | Continuity of Care Document ---
:1930 Author Organization [facility] Information Level Care Team Providers Name Role Phone [facility] Information Level Unavailable Un available Problems Problem Status Onset Classification Date Comments Sourc e Date Reported Dialysis AV fistula Active 11/28/[address] [facility] malfunction, initial 019 Health encounter Anemia, unspecified 06/15/2018 018 [place] CHF, SYMPTOMATIC Active Mem orial ANEMIA 018 [place] CHF EXACERBATION Active Mem orial 018 [place] ACUTE CONGESTIVE HEART Active [facility] FAILURE, ESRD 018 [place] n Hip pain (finding) Active Problem 06/15/2018 Data 013 migrated [place] from [employer] on 08/17/14. Iron deficiency anemia Active Problem 06/15/2018 Data MH (disorder) 013 migrated [place] from [employer] on 08/17/14. Loss of appetite Active Problem 06/15/2018 Data MH (finding) 013 migrated [place] from [employer] on 08/17/14. Gastroesophageal Active Problem 06/15/2018 Data reflux disease 013 migrated [place] and (disorder) from [employer] on 08/17/14. Lung mass (finding) Active Problem 06/15/2018 Data 013 migrated [place] from [employer] on 08/17/14. Thyroid nodule Active Problem 06/15/2018 Data MH (disorder) 013 migrated [place] from [employer] on 08/17/14. Osteoarthritis of knee Active Problem 06/15/2018 Data MH (disorder) 012 migrated [place] from [employer] on 08/17/14. Long-term drug therapy Active Problem 06/15/2018 Data MH (procedure) 012 migrated [place] from [employer] on 08/17/14. Malaise and fatigue Active Problem 06/15/2018 Data MH (finding) 012 migrated [place] from [employer] on 08/17/14. Abnormal cytology Active 2 Problem 06/15/2018 Data M H findings (finding) 012 migrated [place] from [employer] on 08/17/14. Follow up Active 10/17/[address] [facility] Health ESRD (end stage renal Active 11/28/[address] 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 Pure 06/15/2018 hypercholesterolemia, [place] unspecified Heart failure, 06/15/2018 unspecified [place] Unilateral primary 06/15/2018 osteoarthritis, [facility] unspecified knee Anemia in other 06/15/2018 chronic diseases [place] classified elsewhere Thrombocytopenia, 06/15/2018 M H unspecified [place] Hypertensive urgency 06/15/2018 MH [place] Gastro-esophageal 06/15/2018 M H reflux disease without [place] esophagitis Nicotine dependence, 06/15/2018 cigarettes, [place] uncomplicated 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 Constipation Active Problem 06/15/2018 Data MH (disorder) migrated [place] from [employer] on 08/17/14. Diabetes mellitus Active Problem 06/15/2018 Data M H (disorder) migrated [place] from [employer] on 08/17/14. Hypercholesterolemia Active Problem 06/15/2018 Data MH (disorder) migrated [place] from [employer] on 08/17/14. Impaired glucose Active Problem 06/15/2018 Data MH tolerance (disorder) migrated [place] from [employer] on 08/17/14. Acute respiratory 08/05/2017 M H failure with hypoxia [place] Acute on chronic 08/05/2017 diastolic (congestive) [place] heart failure Patient's 08/05/2017 noncompliance with [place] other medical treatment and regimen Anemia in chronic 08/05/2017 M H kidney disease [place] and Other malaise 08/05/2017 [place] Personal history of 08/05/2017 nicotine dependence [place] HEART FAILURE, Active Memor ial UNSPECIFIED [place] ACUTE DIASTOLIC Active Migel rial (CONGESTIVE) HEART H ermann FAILU Medications Medication Details Route Status Patient Ordering Order Source Instructions Provider Date traMADol 50 mg Take 1 tablet Oral Active UTM B tablet by mouth [facility] every 6 (six) hours as needed for Pain (scale 7-10). Hydralazine Notes: (Same Inactive Hydrochloride as: 018 [place] 100 MG Oral Apresoline) Tablet May interfere w/enteral feedings Take With Food Hydralazine 100 mg = 1 Active Hydrochloride tab, PO, Q8H, 018 [place] 100 MG Oral # 90 tab, 2 Tablet Refill(s), Pharmacy: [facility]/pharmacy #[id number] Doxazosin Notes: (Same No Longer as: Cardura) Active 018 [place] Clonidine Notes: (Same No Longer Hydrochloride As: Catapres) Active 018 [place] 0.3 MG Oral Tablet isosorbide Notes: (Same No Longer mononitrate as:Imdur) "Do Active 018 [place] extended Not Crush" release Take on empty stomach/ full glass of water. Do not crush Plavix Notes: (Same No Longer As: Plavix) Active 018 [place] Aspirin Notes: Do not No Longer MH crush or Active 018 [place] chew. (Same As: Ecotrin) Epogen Notes: (Same Inactive as: Procrit) 018 [place] epoetin ana rosa 3000 unit/1 ml VL. For dialysis use only WASTE: F/P - Red; E -Red MEDICATION WASTE Product Size: 3000 unit Product Wasted: ___ unit epoetin ana rosa Notes: (Same No Longer as: Procrit) Active 018 [place] epoetin ana rosa 49918 unit/1 ml VL. For dialysis use only. (Procrit) WASTE: F/P - Red; E -Red MEDICATION WASTE Product Size: 74816 unit Product Wasted: ___ unit Clonidine 0.3 mg, PO, Active BID, [address] [place] [address] Refill(s) Acetaminophen 1 tab, PO, Active 300 MG / Q6H, PRN 018 [place] Codeine Pain, # 28 Phosphate 30 MG tab, 0 Oral Tablet Refill(s) [Tylenol with Codeine #3] ramipril 10 mg See Active oral capsule Instructions, 018 [place] and 1 cap PO Daily 30 day, 0 Refill(s) Clonidine Notes: (Same Inactive As: Catapres) [address] [place] [address] Hydralazine Notes: (Same No Longer Hydrochloride as: Active [address] [place] [address] 100 MG Oral Apresoline) Tablet May interfere w/enteral feedings Take With Food NIFEdipine 90 Notes: (Same No Longer mg oral tablet, as: Adalat Active 018 [place] and extended CC, Procardia release XL) Give on empty stomach. Take 1 hour before or 2 hours after meal; "Avoid grapefruit and grapefruit juice". Do not crush Hydralazine 5 mg, Route: Inactive IVP, ONCE, [address] [place] [address] Dosing Weight 65.909, kg, Start date: 11/25/17 19:59:00 CDT, Stop date: 11/25/17 19:59:00 CDT Lipitor 80 mg, PO, Active Daily, at [address] [place] [address] bedtime, 0 Refill(s) Sodium Chloride 1,000 mL, No Longer 0.9% (Bolus) IV 1,000 ml/hr, Active 018 [place] Infuse Over: 1 hr, Route: IV, 1,000, Drug form: INJ, PRN, Priority: STAT, Dosing Weight 68.5 kg, Start date: 11/25/17 16:55:00 CDT, Duration: 30 day, Stop date: 12/25/17 16:54:00 CDT, PRN Dialysis Sodium Chloride 250 mL, Rate: No Longer 0.9% (titrate) To prime line Active 018 [place] 250 mL and flush remaining blood products., Dosing Weight 68.5, kg, Route: IV, Total Volume: 250, Start Date: 11/25/17 16:49:00 CDT, Duration: 30 day, Stop date: 12/25/17 16:48:00 CDT, Replace Every: 24 hr Hydralazine Notes: (Same No Longer as: Active 018 [place] Apresoline) Push over 5 minutes Acetaminophen Notes: Do not No Longer exceed 4 Active 018 [place] gm/day. (Same as: Tylenol) Acetaminophen Notes: (Same No Longer 325 MG / as: [place] Active 018 [place] Hydrocodone 325/5) Do Bitartrate 5 MG not exceed Oral Tablet 4gm/day of acetaminophen . remove patch 1 patch, No Longer Route: TOP, Active 018 [place] Drug form: ERFILM, Q7D, Start date: 05/06/17 4:59:00 FLOUR INSPECTOR, Duration: 30 day, Stop date: 06/03/17 9:00:00 CDT Clonidine 0.2 mg = 2 Active Hydrochloride tab, PO, BID, 018 [place] 0.1 MG Oral # 30 tab, 0 Tablet Refill(s), Pharmacy: [facility]/pharmacy #[id number] losartan 50 mg 100 mg = 2 Active oral tablet tab, PO, 018 [place] Q12H, # 30 tab, 0 Refill(s), Pharmacy: [facility]/pharmacy #[id number] Hydralazine 200 mg = 2 Active Hydrochloride tab, PO, TID, 018 [place] 100 MG Oral 0 Refill(s) Tablet Clonidine Notes: (Same Inactive Hydrochloride As: Catapres) 018 [place] 0.1 MG Oral Tablet normal saline 1,000 mL, Inactive MH 0.9% IV 1,000 Rate: 75 018 [place] mL ml/hr, Infuse over: 13.3 hr, Route: IV, Dosing Weight 68.5 kg, Total Volume: 1,000, Start date: 04/29/17 10:55:00 FLOUR INSPECTOR, Duration: 30 day, Stop date: 05/29/17 10:54:00 CDT, 1.79, m2 Hydralazine 50 mg, 1 tab, Inactive Hydrochloride Route: PO, 018 [place] 50 MG Oral Drug form: Tablet TAB, TID, Dosing Weight 68.5, kg, Start date: 04/29/17 9:00:00 FLOUR INSPECTOR, Duration: 30 day, Stop date: 05/28/17 17:00:00 FLOUR INSPECTOR 168 HR Notes: Patch Inactive Clonidine delivers 0.1 018 [place] 0.65046 MG/HR mg/24 hours; Transdermal Patch is Patch applied weekly. "Remove old patch before application of new patch" (Same As: Catapres-TTS- 1) Kayexalate Notes: Inactive (sodium 018 [place] polystyrene sulfonate 15 gm/60 ml TRINITY) Shake well before use. (Same as: Kayexalate, SPS) sodium chloride 2,000 mL, 0 No Longer 0.9% (Priming ml/hr, Infuse Active 018 [place] and Over: 0 hr, Maintenance) Route: IV, 2,000, Drug form: INJ, PRN, Dosing Weight 68.5 kg, Start date: 04/28/17 11:40:00 FLOUR INSPECTOR, Duration: 24 hr, Stop date: 04/29/17 11:39:00 FLOUR INSPECTOR, For Use by Dialysis nurse ONLY, PRN Dialysis Hydralazine Notes: (Same No Longer as: Active 018 [place] Apresoline) Push over 5 minutes Clonidine Notes: (Same No Longer As: Catapres) Active 018 [place] Losartan Notes: (Same No Longer as: Cozaar) Active 018 [place] NIFEdipine 90 Notes: (Same No Longer mg oral tablet, as: Adalat Active 018 [place] and extended CC,Procardia release XL) "Do Not Crush" "Avoid grapefruit and grapefruit juice" Melatonin Notes: (Same No Longer as: Active 018 [place] Melatonin) Melatonin 2.5 2.5 mg, 1 Inactive mg oral capsule cap, Route: 018 [place] PO, Dosing Weight 68.5, kg, Bedtime, PRN as needed for insomnia, Start date: 04/25/17 17:50:00 FLOUR INSPECTOR, Duration: 30 day, Stop date: 05/25/17 17:49:00 FLOUR INSPECTOR heparin 10,000 unit, No Longer MH 10 mL, Route: Active 018 [place] DIALYSIS, Drug form: INJ, ONCALL, Dosing Weight 68.5, kg, PRN Dialysis, Start date: 04/25/17 7:45:00 FLOUR INSPECTOR, Duration: 1 doses or times, Stop date: Limited # of times albumin human Notes: Lot #: No Longer MH 25% intravenous Active 018 [place] solution Mfg: (Same as: Plasbumin-25) "blood product derivative" WASTE: F/P - Red; E -Red MEDICATION WASTE Product Size: 25 gm Product Wasted: ___ gm normal saline 1,000 mL, No Longer MH 0.9% IV 1,000 Rate: 1 Active 018 [place] mL ml/hr, Infuse over: 1000 hr, Route: DIALYSIS, Dosing Weight 68.5 kg, Total Volume: 1,000, Priority: NOW, Start date: 04/25/17 7:43:00 FLOUR INSPECTOR, Duration: 30 day, Stop date: 05/25/17 7:42:00 FLOUR INSPECTOR, 1.79, m2 normal saline 1,000 mL, No Longer MH 0.9% IV 1,000 Rate: 1 Active 018 [place] mL ml/hr, Infuse over: 1000 hr, Route: DIALYSIS, Dosing Weight 68.5 kg, Total Volume: 1,000, Priority: NOW, Start date: 04/25/17 7:42:00 FLOUR INSPECTOR, Duration: 30 day, Stop date: 05/25/17 7:41:00 FLOUR INSPECTOR, 1.79, m2 Isosorbide Notes: (Same No Longer Dinitrate as:Isordil) Active 018 [place] Take on empty stomach/ full glass of water Epogen Notes: (Same No Longer as: Procrit) Active 018 [place] epoetin ana rosa 24422 unit/1 ml VL. For dialysis use only. (Procrit) WASTE: F/P - Red; E -Red MEDICATION WASTE Product Size: 72998 unit Product Wasted: ___ unit Sertraline Notes: (Same No Longer MH as: Zoloft) Active 018 [place] Doxazosin Notes: (Same No Longer MH as: Cardura) Active 018 [place] Docusate Sodium Notes: (Same No Longer M H 100 MG Oral as: Colace) Active 018 [place] Capsule (Do Not Crush) Vitamin D3 1000 Notes: Same No Longer MH intl units oral as : Vitamin Active 018 [place] tablet D3 Tums Notes: (Same No Longer MH As: Tums) Active 018 [place] Calcium Carbonate 500 mg = 200 mg elemental calcium Dose = mg calcium carbonate ( mg elemental calcium) Hydralazine Notes: (Same No Longer Hydrochloride as: Active Job [place] 100 MG Oral Apresoline) Tablet May interfere w/enteral feedings Take With Food heparin Notes: No Longer MH porcine Active 018 [place] heparin Plavix Notes: (Same No Longer MH As: Plavix) Active 018 [place] Aspirin Notes: Do not No Longer MH crush or Active 018 [place] chew. (Same As: Ecotrin) Hydralazine Notes: (Same Inactive MH as: 018 [place] Apresoline) May interfere w/enteral feedings Take With Food NIFEdipine 90 90 mg = 1 Active MH mg oral tablet, tab, PO, QAM 018 [place] extended & PM, 0 release Refill(s) melatonin 5 mg 5 mg = 1 tab, Active MH oral tablet PO, Bedtime, 018 [place] PRN for insomnia, # 60 tab, 0 Refill(s) Ascorbic Acid 1 tab, PO, Active MH 60 MG / Biotin QPM, 0 018 [place] 0.3 MG / Folic Refill(s) Acid 0.8 MG / mecobalamin 0.006 MG / Niacinamide 20 MG / pantothenate 10 MG / pyridoxine 10 MG / Riboflavin 1.7 MG / Thiamine 1.5 MG Oral Tablet [Dialyvite 800] sertraline 50 50 mg = 1 Active MH mg oral tablet tab, PO, QPM, 018 [place] 0 Refill(s) doxazosin 4 mg 4 mg = 1 tab, Active oral tablet PO, QPM, 0 018 [place] Refill(s) losartan 50 mg 50 mg = 1 No Longer oral tablet tab, PO, QAM Active 018 [place] & PM, 0 Refill(s) Tums 1,000 mg, Active CHEW, QAM & 018 [place] PM, 0 Refill(s) Docusate Sodium 100 mg = 1 Active 100 MG Oral cap, PO, QAM 018 [place] Capsule & PM, 0 Refill(s) Vitamin D3 5000 5,000 Active intl units oral IntlUnit = 1 018 [place] capsule cap, PO, QPM, # 30 cap, 1 Refill(s) Hydralazine Notes: (Same No Longer as: Active 018 [place] Apresoline) Push over 5 minutes Labetalol 20 mg, 4 mL, Inactive Route: IVP, Job Leonardo Drug form: INJ, ONCE, Dosing Weight 68.5, kg, Start date: 04/22/17 3:57:00 FLOUR INSPECTOR, Stop date: 04/22/17 3:57:00 FLOUR INSPECTOR potassium Notes: (Same Inactive chloride 20 mEq as: K-Dur 20) 018 [place] oral tablet, "Do Not extended Crush" With release food and full glass of water Magnesium Notes: WASTE: Inactive Sulfate F/P - Sink; E 018 [place] - Municipal Trash Bin Isosorbide 90 mg, PO, Active Dinitrate QAM, 0 018 [place] Refill(s) Hydralazine 100 mg = 1 No Longer Hydrochloride tab, PO, TID, Active 018 [place] 100 MG Oral 0 Refill(s) Tablet clopidogrel 75 75 mg = 1 Active MG Oral Tablet tab, PO, QAM, 018 [place] [Plavix] 0 Refill(s) Aspirin 81 mg, PO, Active MH QAM, 0 018 [place] Refill(s) Hydralazine Notes: (Same Inactive as: 018 [place] Apresoline) Push over 5 minutes Insulin Lispro Notes: Roll No Longer MH in palms of Active 018 [place] hands gently; Do not shake `vigorously. (Same as: Humalog ) "Single Patient Use Only " WASTE: F/P - Black; E - Municipal Trash Bin Stable for 28 days at room temperature. Expires in days from _Date Dextrose 50% 12.5 gm, 25 No Longer MH Syringe mL, Route: Active 018 [place] IVP, Drug Form: INJ, Dosing Weight 68.5, kg, PRN, PRN Blood Glucose Results, Start date: 04/22/17 1:43:00 FLOUR INSPECTOR, Duration: 30 day, Stop date: 05/22/17 1:42:00 FLOUR INSPECTOR Glucagon 1 mg, Route: No Longer IM, Drug Active 018 [place] form: PDR/INJ, PRN, Dosing Weight 68.5, kg, PRN Blood Glucose Results, Start date: 04/22/17 1:43:00 FLOUR INSPECTOR, Duration: 30 day, Stop date: 05/22/17 1:42:00 FLOUR INSPECTOR NIFEdipine 60 Notes: (Same No Longer MH mg oral tablet, as: Adalat Active 018 [place] and extended CC, Procardia release XL) Give on empty stomach. Take 1 hour before or 2 hours after meal; "Avoid grapefruit and grapefruit juice". Do not crush Losartan Notes: (Same No Longer as: Cozaar) Active 018 [place] Acetaminophen Notes: Do not No Longer exceed 4 Active 018 [place] gm/day. (Same as: Tylenol) aspirin 81 mg Take 81 mg by Oral Active [facility] chewable tablet mouth daily. Hea lth clopidogrel Take 75 mg by Oral Active [facility] (PLAVIX) 75 mg mouth daily. Heal th tablet hydralAZINE 100 Take 100 mg Oral Active [facility] mg tablet by mouth Health every 6 (six) hours. isosorbide Take 90 mg by Oral Active [facility] mononitrate 30 mouth. Health mg 24 hr tablet NIFEdipine XL Take 90 mg by Oral Active [facility] 90 mg 24 hr mouth 2 (two) Health tablet times daily. cloniDINE 0.3 Take 0.3 mg Oral Active [facility] mg tablet by mouth 2 Health (two) times daily. doxazosin 8 mg Take 8 mg by Oral Active [facility] tablet mouth 2 (two) Health times daily. docusate 100 mg Take 100 mg Oral Active [facility] capsule by mouth 2 Health (two) times daily. calcium Take 1,000 mg Oral Active [facility] carbonate (TUMS by mouth 2 Healt h ORAL) (two) times daily. vitamin B-12 Take 1,000 Oral Active [facility] (VITAMIN B-12) mcg by mouth Heal th 1,000 mcg daily. tablet atorvastatin Take 80 mg by Oral Active [facility] (LIPITOR) 80 mg mouth at Health tablet bedtime. ramipril 10 mg Take 10 mg by Oral Active U[facility] B capsule mouth daily. Health SERTraline 50 Take 50 mg by Oral Active [facility] mg tablet mouth daily. Health folic acid/vit Take by Oral Active [facility] B complex and C mouth. [facility] (DIALYVITE 800 ORAL) Melatonin 5 mg Take by Oral Active [facility] Cap mouth. Health Cholecalciferol Take 5,000 Oral Active [facility] , Vitamin D3, Units by Health (VITAMIN D3) mouth daily. 5,000 unit tablet CEPHALEXIN ORAL Take 500 mg Oral Active [facility] by mouth 3 Health (three) times daily. Indications: UTI for 10 days. On 08/28 day Allergies, Adverse Reactions, Alerts Substance Category Reaction Severity Reaction Status Date Comments S ource type Reported Gatifloxacin Unknown - Propensity Active [facility] See to adverse 6 Healt h comments reactions Fexofenadine Nausea Propensity Active [facility] Hcl and/or to adverse 9 Healt h Vomiting reactions Ciprofloxaci Nausea Propensity Active [facility] n (Bulk) and/or to adverse 9 Heal th Vomiting reactions Penicillins Rash Propensity Active [facility] to adverse 9 Healt h reactions Sulfa Nausea Propensity Active [facility]TM B (Sulfonamide and/or to adverse 9 Health Antibiotics) Vomiting reactions penicillins< Assertion Drug Active Data M H sup>1</sup> allergy migrated [place] [facility] from [facility] on 10/17/14. Originally documented as PENICILLIN . diazepam<sup Assertion Drug Active Data M H >2</sup> allergy migrated [place] from [employer] on 07/18/14. Originally documented as VALIUM. fexofenadine Assertion Drug Active Data M H <sup>3</sup> allergy migrated [place] from [employer] on 07/18/14. Originally documented as FANY ALLERGY. gatifloxacin Assertion Drug Active Data M H <sup>4</sup> allergy migrated [place] from [employer] on 07/18/14. Originally documented as TEQUIN. Tequin Assertion Drug Active MH allergy [place] DULoxetine<s Assertion Drug Active Data M H up>5</sup> allergy migrated [place] from [employer] on 07/18/14. Originally documented as CYMBALTA. Immunizations Immunization Date Given Site Status Last Comments Source Updated Hx influenza 12/23/2011 completed Result [place] vaccine-unspecifi Comment: flu ed<sup>1</sup> shot. Migrated from [facility] ; Data migrated from [employer] on 04/22/2015. Results Order Name Results Value Reference Date Interpretation Comments Mandy rce Range CHEM PANEL eGFR 14 11/26 Result Comment: The [place] eGFR is calculated using the CKD-EPI formula. In most young, healthy individuals the eGFR will be >90 mL/min/1.73m2 . The eGFR declines with age. An eGFR of 60-89 may be normal in some populations, particularly the elderly, for whom the CKD-EPI formula has not been extensively validated. Use of the eGFR is not recommended in the following populations:< br/>
Megan viduals with unstable creatinine concentration s, including patients and those with serious co-morbid conditions.<b r/>
Patie nts with extremes in muscle mass or diet.

The data above are obtained from the National Kidney Disease Education Program (NKDEP) which additionally recommends that when the eGFR is used in patients with extremes of body mass index for purposes of drug dosing, the eGFR should be multiplied by the estimated BMI. CHEM PANEL Glucose Lvl 190 70 - 99 11/26 [place] CHEM PANEL BUN 22 7 - 22 11/26 [place] CHEM PANEL Creatinine 3.20 0.50 - 11/26 MH Lvl 1.40 [place] CHEM PANEL Sodium Lvl 134 135 - 145 09/08 /2017 [place] CHEM PANEL CO2 27 24 - 32 09/08 [place] CHEM PANEL Chloride Lvl 98 95 - 109 09/08 [place] CHEM PANEL Potassium 3.9 3.5 - 5.1 09/08 MH Lvl /2017 [place] CHEM PANEL AGAP 12.9 10.0 - 09/08 MH 20.0 [place] CHEM PANEL Calcium Lvl 8.1 8.5 - 10.5 09/08 /2017 [place] HEMATOLOGY Lymphocytes 0.7 1.0 - 5.5 09/08 MH # /2017 [place] HEMATOLOGY Eosinophils 0.1 0.0 - 0.5 09/08 MH # /2017 [place] HEMATOLOGY Monocytes # 0.5 0.0 - 0.8 09/08 [place] HEMATOLOGY Eosinophils 0.9 0.0 - 4.0 09/08 [place] HEMATOLOGY Monocytes 5.3 2.0 - 12.0 09/08 [place] HEMATOLOGY Neutrophils 7.3 1.5 - 8.1 09/08 MH # /2017 [place] HEMATOLOGY Basophils 0.6 0.0 - 1.0 09/08 /2017 [place] HEMATOLOGY Lymphocytes 8.4 20.0 - 09/08 MH 40.0 [place] HEMATOLOGY Segs 84.8 45.0 - 09/08 MH 75.0 [place] HEMATOLOGY Basophils # 0.1 0.0 - 0.2 09/08 [place] HEMATOLOGY MCHC 34.5 32.0 - 0908 MH 36.0 [place] HEMATOLOGY RDW 15.1 11.5 - 09/08 MH 14.5 [place] HEMATOLOGY Platelet 137 133 - 450 09/08 [place] HEMATOLOGY MPV 8.2 7.4 - 10.4 09/08 /2017 [place] HEMATOLOGY RBC 2.73 4.20 - 09/08 MH 5.40 [place] HEMATOLOGY Hgb 8.9 12.0 - 09/08 MH 16.0 [place] HEMATOLOGY Hct 25.9 36.0 - 09/08 MH 48.0 [place] HEMATOLOGY MCV 94.8 80.0 - 09/08 MH 98.0 [place] HEMATOLOGY MCH 32.7 27.0 - 09/08 MH 31.0 [place] HEMATOLOGY WBC 8.6 3.7 - 10.4 11/26 /2017 [place] BACTERIAL - MRSA by PCR Negative 11/26 SEROLOGY (11/26/17 12:49 AM) /2017 [place] and ANEMIA Folate Lvl 31.9 >=3.0 11/26 STUDY ng/mL /2017 [place] ANEMIA Vitamin B12 707 254 - 1320 11/26 STUDY Lvl /2017 [place] ANEMIA Ferritin Lvl 2302 5 - 204 11/26 STUDY /2017 [place] CHEM PANEL LDH 207 98 - 192 11/26 MH [place] CHEM PANEL Bili 0.2 0.0 - 1.0 11/26 Indirect /2017 [place] CHEM PANEL Bili Total 0.4 0.2 - 1.3 11/26 [place] CHEM PANEL Bili Direct 0.2 0.0 - 0.3 11/26 [place] HEMATOLOGY Retic Auto 1.6 0.5 - 1.5 11/26 [place] IMMUNOLOGY Homocyst Tot 25.8 3.7 - 13.9 11/26 [place] ORGANIC Disclaimer Comment 11/26 Result ACID (Org Acid) /2017 Comment: [place]
This test was developed and its performance characteristi cs
determ ined by [facility]. It has not been cleared or
approv ed by the Food and Drug Administratio n.
Perfor med At: [facility] [place]
[address] [place], [place] [id number]< br/>Delicia Simeon MD Ph:[phone] ORGANIC MMA Qnt 572 0 - 378 11/26 ACID /2017 [place] BLOOD BANK RBC product Product available 1 11/25 Resul t MH RESULTS (11/25/17 6:45 PM) /2017 Comment: [place] 11/25/2017 18:46 [id number]
Blood available, notified Wilbert/ Evelyn at 11/25/2017 18:46_ by _LL. BLOOD BANK Antibody Negative 11/25 RESULTS Scrn (11/25/17 5:20 PM) /2017 Carolyn d BLOOD BANK RBC product Product available 2 11/25 Resul t MH RESULTS (11/25/17 5:20 PM) /2017 Comment: [place] 11/25/2017 19:32 [id number]
called to sandro for pickling solution maker at 1923 11/25/2017 19:32 tb BLOOD BANK ABO/Rh A NEG 11/25 MH RESULTS [place] ELECTROLYTE AGAP 13.7 10.0 - 09 MH S 20.0 /2017 [place] ELECTROLYTE B/C Ratio 8 6 - 25 11/25 MH S [place] ELECTROLYTE A/G Ratio 0.8 0.7 - 1.6 11/25 MH S [place] ELECTROLYTE Globulin 3.9 2.7 - 4.2 11/25 MH S [place] ELECTROLYTE Chloride Lvl 101 95 - 109 11/25 MH S [place] ELECTROLYTE Sodium Lvl 138 135 - 145 11/25 MH S [place] ELECTROLYTE Potassium 3.7 3.5 - 5.1 11/25 MH S Lvl /2017 [place] ELECTROLYTE AST 31 0 - 37 11/25 MH S [place] ELECTROLYTE ALT 25 0 - 65 11/25 MH S [place] ELECTROLYTE Albumin Lvl 3.1 3.5 - 5.0 11/25 MH S [place] ELECTROLYTE Calcium Lvl 8.0 8.5 - 10.5 11/25 S [place] ELECTROLYTE CO2 27 24 - 32 11/25 MH S [place] ELECTROLYTE BUN 41 7 - 22 11/25 MH S [place] ELECTROLYTE Glucose Lvl 114 70 - 99 11/25 MH S [place] ELECTROLYTE Total 7.0 6.4 - 8.4 11/25 MH S Protein [place] ELECTROLYTE Creatinine 4.96 0.50 - 11/25 MH S Lvl 1.40 /2017 [place] ELECTROLYTE Bili Total 0.4 0.2 - 1.3 11/25 MH S [place] ELECTROLYTE Alk Phos 73 39 - 136 11/25 MH S [place] ELECTROLYTE eGFR 8 11/25 Result MH S Comment: The [place] eGFR is calculated using the CKD-EPI formula. In most young, healthy individuals the eGFR will be >90 mL/min/1.73m2 . The eGFR declines with age. An eGFR of 60-89 may be normal in some populations, particularly the elderly, for whom the CKD-EPI formula has not been extensively validated. Use of the eGFR is not recommended in the following populations:< br/>
Megan viduals with unstable creatinine concentration s, including patients and those with serious co-morbid conditions.<b r/>
Patie nts with extremes in muscle mass or diet.

The data above are obtained from the National Kidney Disease Education Program (NKDEP) which additionally recommends that when the eGFR is used in patients with extremes of body mass index for purposes of drug dosing, the eGFR should be multiplied by the estimated BMI. HEMATOLOGY WBC 6.3 3.7 - 10.4 11/25 [place] HEMATOLOGY RBC 1.95 4.20 - 11/25 MH 5.40 /2017 [place] HEMATOLOGY Hgb 6.3 12.0 - 11/25 Result MH 16.0 Comment: [place] Critical Result(s) called to [facility]/ at _11/25/2017 17:31 by_cg Read back OK. HEMATOLOGY Hct 18.3 36.0 - 11/25 Result 48.0 Comment: [place] Critical Result(s) called to [facility] at _11/25/2017 17:31 by_cg Read back OK. HEMATOLOGY MCHC 34.5 32.0 - 11/25 MH 36.0 /2017 [place] HEMATOLOGY MCH 32.4 27.0 - 11/25 MH 31.0 [place] HEMATOLOGY MCV 93.7 80.0 - 11/25 MH 98.0 /2017 [place] HEMATOLOGY MPV 8.1 7.4 - 10.4 11/25 [place] HEMATOLOGY Platelet 129 133 - 450 11/25 [place] HEMATOLOGY RDW 16.3 11.5 - 11/25 MH 14.5 [place] HEMATOLOGY Neutrophils 5.1 1.5 - 8.1 11/25 MH # /2018 [place] HEMATOLOGY Monocytes # 0.3 0.0 - 0.8 11/25 /2017 [place] HEMATOLOGY Lymphocytes 0.8 1.0 - 5.5 11/25 MH # /2018 [place] HEMATOLOGY Hypochrom 1+ None Seen 11/25 (11/25/17 5:20 PM) /[address] [facility] HEMATOLOGY Microcyte 1+ None Seen 11/25 MH *ABN* /2017 [place] (9/7/18 5:20 PM) HEMATOLOGY Anisocyte 1+ None Seen 11/25 MH *ABN* /2017 [place] (11/25/17 5:20 PM) HEMATOLOGY RBC Morph See Note 11/25 (11/25/17 5:20 PM) /2017 [facility] HEMATOLOGY Segs 80.8 45.0 - 11/25 MH 75.0 [place] HEMATOLOGY Plt Morph Normal 11/25 (11/25/17 5:20 PM) /2017 [facility] HEMATOLOGY Monocytes 5.5 2.0 - 12.0 11/25 [place] HEMATOLOGY Lymphocytes 13.0 20.0 - 11/25 MH 40.0 [place] HEMATOLOGY Basophils 0.5 0.0 - 1.0 11/25 [place] HEMATOLOGY Eosinophils 0.2 0.0 - 4.0 11/25 [place] HEMATOLOGY Spherocyte Occasional None Seen 11/25 MH *ABN* /2017 [place] (11/25/17 5:20 PM) HEMATOLOGY Tear Cell Few 11/25 [place] IMMUNOLOGY Hep Bs Ag Negative Negative 11/25 *NA* /2017 [place] (11/25/17 5:20 PM) ELECTROLYTE AGAP 10.8 10.0 - 04/29 MH S 20. [place] ELECTROLYTE eGFR 15 04/29 Result Comment: The [place] eGFR is calculated using the CKD-EPI formula. In most young, healthy individuals the eGFR will be >90 mL/min/1.73m2 . The eGFR declines with age. An eGFR of 60-89 may be normal in some populations, particularly the elderly, for whom the CKD-EPI formula has not been extensively validated. Use of the eGFR is not recommended in the following populations:< br/>
Megan viduals with unstable creatinine concentration s, including patients and those with serious co-morbid conditions.<b r/>
Patie nts with extremes in muscle mass or diet.

The data above are obtained from the National Kidney Disease Education Program (NKDEP) which additionally recommends that when the eGFR is used in patients with extremes of body mass index for purposes of drug dosing, the eGFR should be multiplied by the estimated BMI. ELECTROLYTE Calcium Lvl 8.5 8.5 - 10.5 04/29 MH S [place] ELECTROLYTE Creatinine 3.11 0.50 - 02 MH S Lvl 1.40 /2017 [place] ELECTROLYTE Glucose Lvl 82 70 - 99 02/ MH S /2017 [place] ELECTROLYTE Sodium Lvl 135 135 - 145 02/ MH S /2017 [place] ELECTROLYTE Chloride Lvl 99 95 - 109 / MH S /2017 [place] ELECTROLYTE CO2 30 24 - 32 / MH S /2017 [place] ELECTROLYTE Potassium 4.8 3.5 - 5.1 02/ MH S Lvl /2017 [place] ELECTROLYTE BUN 19 7 - 22 02/ MH S /2017 [place] HEMATOLOGY Basophils 0.7 0.0 - 1.0 04/29 /2017 [place] HEMATOLOGY Eosinophils 1.3 0.0 - 4.0 04/29 /2017 [place] HEMATOLOGY Segs 74.6 45.0 - 02 MH 75.0 [place] HEMATOLOGY Monocytes # 0.4 0.0 - 0.8 04/29 [place] HEMATOLOGY Segs-Bands # 3.9 1.5 - 8.1 04/29 /2017 [place] HEMATOLOGY Lymphocytes 0.8 1.0 - 5.5 04/29 MH # /2017 [place] HEMATOLOGY Eosinophils 0.1 0.0 - 0.5 04/29 MH # /2017 [place] HEMATOLOGY Lymphocytes 15.1 20.0 - 02 MH 40.0 [place] HEMATOLOGY Monocytes 8.3 2.0 - 12.0 04/29 [place] HEMATOLOGY RDW 14.7 11.5 - 04/29 MH 14.5 [place] HEMATOLOGY Platelet 204 133 - 450 04/29 [place] HEMATOLOGY MPV 8.5 7.4 - 10.4 04/29 [place] HEMATOLOGY MCV 96.8 80.0 - 04/29 MH 98.0 [place] HEMATOLOGY Hct 28.5 36.0 - 02 MH 48.0 [place] HEMATOLOGY MCHC 35.6 32.0 - 02/ MH 36.0 [place] HEMATOLOGY MCH 34.4 27.0 - 02/ MH 31.0 [place] HEMATOLOGY WBC 5.2 3.7 - 10.4 04/29 [place] HEMATOLOGY RBC 2.94 4.20 - 02 MH 5.40 [place] HEMATOLOGY Hgb 10.1 12.0 - 02 MH 16.0 [place] ELECTROLYTE Potassium 5.3 3.5 - 5.1 04/28 S Lvl /2017 [place] BLOOD BANK ABO/Rh A NEG 04/28 RESULTS /2017 [place] BLOOD BANK Antibody Negative 04/28 RESULTS Scrn (04/28/17 7:30 AM) [place] BLOOD BANK RBC product Product available 1 04/28 Resul t MH RESULTS (04/28/17 7:00 AM) Comment: Rosy nd 04/28/2017 09:20 [id number]
Blood available, notified Ravi Deleon at 04/28/2017 09:19 by VV. CHEM PANEL eGFR 9 04/28 Result Comment: The [place] eGFR is calculated using the CKD-EPI formula. In most young, healthy individuals the eGFR will be >90 mL/min/1.73m2 . The eGFR declines with age. An eGFR of 60-89 may be normal in some populations, particularly the elderly, for whom the CKD-EPI formula has not been extensively validated. Use of the eGFR is not recommended in the following populations:< br/>
Megan viduals with unstable creatinine concentration s, including patients and those with serious co-morbid conditions.<b r/>
Patie nts with extremes in muscle mass or diet.

The data above are obtained from the National Kidney Disease Education Program (NKDEP) which additionally recommends that when the eGFR is used in patients with extremes of body mass index for purposes of drug dosing, the eGFR should be multiplied by the estimated BMI. CHEM PANEL Calcium Lvl 8.2 8.5 - 10.5 04/28 [place] CHEM PANEL CO2 29 24 - 32 04/28 [place] CHEM PANEL Sodium Lvl 130 135 - 145 04/28 [place] CHEM PANEL Chloride Lvl 97 95 - 109 04/28 [place] CHEM PANEL Potassium 5.7 3.5 - 5.1 04/28 Lvl [place] CHEM PANEL BUN 37 7 - 22 04/28 [place] CHEM PANEL Glucose Lvl 87 70 - 99 04/28 [place] CHEM PANEL Creatinine 4.70 0.50 - 02 Lvl 1.40 [place] CHEM PANEL AGAP 9.7 10.0 - 02/08 MH 20.0 /2017 [place] HEMATOLOGY Platelet 176 133 - 450 02 MH [place] HEMATOLOGY MPV 8.1 7.4 - 10.4 02 MH /2017 [place] HEMATOLOGY RDW 13.6 11.5 - 02/ MH 14.5 /2017 [place] HEMATOLOGY MCH 34.9 27.0 - 02/08 MH 31.0 /2017 [place] HEMATOLOGY MCHC 35.4 32.0 - 02/ MH 36.0 /2017 [place] HEMATOLOGY Hgb 6.5 12.0 - 02/08 Result MH 16.0 /2017 Comment: [place] Critical Result(s) called to andrew fuentes at 04/28/2017 04:20 by rush. Read back OK. HEMATOLOGY MCV 98.6 80.0 - 02 MH 98.0 [place] HEMATOLOGY Hct 18.5 36.0 - 0208 Result 48.0 Comment: [place] Critical Result(s) called to andrew fuentes at 04/28/2017 04:20 by gg. Read back OK. HEMATOLOGY WBC 4.2 3.7 - 10.4 04/28 [place] HEMATOLOGY RBC 1.87 4.20 - 0208 MH 5.40 /2017 [place] HEMATOLOGY Monocytes # 0.4 0.0 - 0.8 04/28 MH [place] HEMATOLOGY Eosinophils 0.1 0.0 - 0.5 /08 MH # /2017 [place] HEMATOLOGY Segs-Bands # 2.7 1.5 - 8.1 04/28 [place] HEMATOLOGY Lymphocytes 1.0 1.0 - 5.5 02/08 MH # /2017 [place] HEMATOLOGY Lymphocytes 24.2 20.0 - 02/08 MH 40.0 [place] HEMATOLOGY Segs 64.0 45.0 - 02/08 MH 75.0 /2018 [place] HEMATOLOGY Monocytes 8.8 2.0 - 12.0 /08 MH [place] HEMATOLOGY Eosinophils 2.1 0.0 - 4.0 /08 MH [place] HEMATOLOGY Basophils 0.9 0.0 - 1.0 02/ MH /2017 [place] HEMATOLOGY WBC 4.2 3.7 - 10.4 02/ MH [place] HEMATOLOGY Hct 19.3 36.0 - 02/08 Result MH 48.0 /2018 Comment: [place] Critical Result(s) called to Elle Fuentes RN at 04/27/2017 20:13 by GN. Read back OK. HEMATOLOGY MCV 98.8 80.0 - 02/ MH 98.0 /2017 [place] HEMATOLOGY Hgb 7.0 12.0 - 08 Result MH 16.0 Comment: [place] Critical Result(s) called to Elle Fuentes RN at 04/27/2017 20:12 by GNF. Read back OK. HEMATOLOGY MCH 35.6 27.0 - 02/08 MH 31.0 /2017 [place] HEMATOLOGY RBC 1.95 4.20 - 02/08 MH 5.40 /2017 [place] HEMATOLOGY MPV 8.6 7.4 - 10.4 / MH /2017 [place] HEMATOLOGY Platelet 183 133 - 450 02 MH /2017 [place] HEMATOLOGY MCHC 36.0 32.0 - 02/08 MH 36.0 /2017 [place] HEMATOLOGY RDW 13.8 11.5 - 02 MH 14.5 [place] ELECTROLYTE Chloride Lvl 97 95 - 109 02/ S /2017 [place] ELECTROLYTE Sodium Lvl 133 135 - 145 02/ S /2017 [place] ELECTROLYTE Creatinine 3.24 0.50 - 02 S Lvl 1.40 /2017 [place] ELECTROLYTE CO2 31 24 - 32 02/ MH S /2017 [place] ELECTROLYTE Calcium Lvl 8.4 8.5 - 10.5 02 MH S /2017 [place] ELECTROLYTE AGAP 9.2 10.0 - 02/06 MH S 20.0 [place] ELECTROLYTE Glucose Lvl 75 70 - 99 04/26 MH S /2017 [place] ELECTROLYTE BUN 22 7 - 22 02/ S /2017 [place] ELECTROLYTE eGFR 14 02 Result S Comment: The [place] eGFR is calculated using the CKD-EPI formula. In most young, healthy individuals the eGFR will be >90 mL/min/1.73m2 . The eGFR declines with age. An eGFR of 60-89 may be normal in some populations, particularly the elderly, for whom the CKD-EPI formula has not been extensively validated. Use of the eGFR is not recommended in the following populations:< br/>
Megan viduals with unstable creatinine concentration s, including patients and those with serious co-morbid conditions.<b r/>
Patie nts with extremes in muscle mass or diet.

The data above are obtained from the National Kidney Disease Education Program (NKDEP) which additionally recommends that when the eGFR is used in patients with extremes of body mass index for purposes of drug dosing, the eGFR should be multiplied by the estimated BMI. IMMUNOLOGY Hep Bs Ag Negative Negative 04/22 *NA* /2017 [place] (04/22/17 9:31 AM) ANEMIA TRANSFERRIN 124 212 - 360 04/22 STUDY [place] ANEMIA Ferritin Lvl 1690 5 - 204 04/22 STUDY [place] ANEMIA % Satur Fe 16 12 - 57 04/22 [place] ANEMIA UIBC 128 110 - 370 04/22 [place] ANEMIA TIBC 153 228 - 428 04/22 STUDY [place] ANEMIA Iron 25 30 - 160 04/22 [place] CARDIAC Troponin-I 0.06 0.00 - 04/22 ENZYMES 0.40 [place] CARDIAC Total CK 70 12 - 191 04/22 ENZYMES [place] CARDIAC proBNP 55915 0 - 450 04/22 ENZYMES [place] CHEM PANEL Phosphorus 2.4 2.5 - 4.5 04/22 [place] CHEM PANEL Magnesium 2.2 1.8 - 2.4 04/22 Lvl [place] CHEM PANEL B/C Ratio 7 6 - 25 04/22 [place] CHEM PANEL A/G Ratio 1.0 0.7 - 1.6 04/22 [place] CHEM PANEL Globulin 2.9 2.7 - 4.2 04/22 [place] CHEM PANEL Albumin Lvl 2.9 3.5 - 5.0 04/22 [place] CHEM PANEL Bili Total 0.6 0.2 - 1.3 04/22 [place] CHEM PANEL AST 18 0 - 37 04/22 [place] CHEM PANEL ALT 16 0 - 65 04/22 [place] CHEM PANEL Alk Phos 69 39 - 136 04/22 [place] CHEM PANEL Total 5.8 6.4 - 8.4 04/22 Protein [place] HEMATOLOGY Monocytes # 0.5 0.0 - 0.8 04/22 [place] HEMATOLOGY Lymphocytes 0.6 1.0 - 5.5 / MH # /2018 [place] HEMATOLOGY Segs 83.9 45.0 - / MH 75.0 /2018 [place] HEMATOLOGY Basophils 0.5 0.0 - 1.0 04/22 [place] HEMATOLOGY Eosinophils 0.7 0.0 - 4.0 / MH /2017 [place] HEMATOLOGY Lymphocytes 8.2 20.0 - 02/ MH 40.0 /2018 [place] HEMATOLOGY Monocytes 6.7 2.0 - 12.0 04/22 [place] HEMATOLOGY Segs-Bands # 5.7 1.5 - 8.1 / MH /2018 [place] HEMATOLOGY INR 1.12 0.85 - 04/22 MH 1.17 /2017 [place] HEMATOLOGY PT 14.4 12.0 - 04/22 MH 14.7 [place] HEMATOLOGY PTT 34.0 22.9 - 04/22 MH 35.8 /2017 [place] CARDIAC Troponin-I 0.04 0.00 - 04/22 ENZYMES 0.40 /2017 [place] CARDIAC Total CK 85 12 - 191 04/22 ENZYMES [place] CARDIAC CK MB Index <0.6 0.0 - 2.5 04/22 ENZYMES /2017 [place] CARDIAC CK MB <0.5 0.5 - 3.6 04/22 ENZYMES /2017 [place] BACTERIAL - MRSA by PCR Negative 04/22 SEROLOGY (04/22/17 2:38 AM) [facility] CHEM PANEL AST 18 0 - 37 04/22 [place] CHEM PANEL Alk Phos 74 39 - 136 04/22 [place] CHEM PANEL Bili Total 0.7 0.2 - 1.3 04/22 [place] CHEM PANEL Albumin Lvl 3.1 3.5 - 5.0 04/22 [place] CHEM PANEL Total 6.9 6.4 - 8.4 04/22 Protein [place] CHEM PANEL Globulin 3.8 2.7 - 4.2 04/22 [place] CHEM PANEL A/G Ratio 0.8 0.7 - 1.6 04/22 [place] CHEM PANEL ALT 14 0 - 65 04/22 [place] CHEM PANEL B/C Ratio 7 6 - 25 04/22 [place] CHEM PANEL Magnesium 1.9 1.8 - 2.4 / Lvl /2018 [place] HEMATOLOGY INR 1.10 0.85 - 02 MH 1.17 /2017 [place] HEMATOLOGY PT 14.2 12.0 - 02 MH 14.7 /2017 [place] HEMATOLOGY PTT 37.7 22.9 - 02 MH 35.8 /2018 [place] HEMATOLOGY Eosinophils 0.1 0.0 - 0.5 04/22 MH # /2018 [place] Pathology Reports No Data Provided for This Section Diagnostic Reports Report Value Date Source Chest 2 views DX EXAM: Chest 2 views DX 04/27/2017 [facility] DATE: 04/27/2017 7:21 PM FLOUR INSPECTOR INDICATION: - Shortness of Breath COMPARISON: None. IMPRESSION: Mildly enlarged cardiac silhouette. Atherosclerotic thoracic aorta. Probable extensive vascular congestive change and pulmonary edema are present. Small right pleural effusion may be present. No significant pneumothorax detected. SL: SILVINO Consultation Notes No Data Provided for This Section Discharge Summaries No Data Provided for This Section History and Physicals No Data Provided for This Section Vital Signs Vital Sign Value Date Comments Source Systolic (mm Hg) 172 11/28/[address] [facility] Health Diastolic (mm Hg) 59 11/28/2018 [facility] h Heart Rate 90 11/28/[address] [facility] Health Temperature Oral (F) 36.83 Jeanna 11/28/2018 [facility] alth Respitory Rate 18 11/28/2018 [facility] Height 167.6 cm 11/28/[address] [facility] Health Weight 68.947 11/28/[address] [facility] Health Systolic (mm Hg) 97 10/17/[address] [facility] Health Diastolic (mm Hg) 47 [facility]/17/[facility] 85 10/17/2018 [facility] Temperature Oral (F) 37 Jeanna 10/17/[address] [facility] He alth Respitory Rate 18 10/17/[address] [facility] Health Height 165.1 cm 10/17/[address] [facility] Health Weight 68.947 10/17/2018 [facility] Systolic (mm Hg) 137 11/27/2017 [facility] Diastolic (mm Hg) 58 11/27/2017 [place] Respitory Rate 18 11/27/2017 [facility] Respitory Rate 16 11/26/2017 [facility] Systolic (mm Hg) 120 11/26/2017 MH [place] Diastolic (mm Hg) 100 11/26/2017 [facility] [place] Systolic (mm Hg) 131 11/26/2017 MH [place] Diastolic (mm Hg) 54 11/26/2017 [facility] [place] Respitory Rate 17 11/26/2017 MH [place] Temperature Oral (F) 98.0 F 11/26/2017 [facility] [place] Temperature Oral (F) 97.6 F 11/26/2017 [facility] [place] Temperature Oral (F) 98.5 F 11/26/2017 [facility] [place] Heart Rate 75 11/26/2017 [place] Heart Rate 83 11/25/2017 [place] BMI Calculated 24.18 11/25/2017 [place] Weight 65.909 11/25/2017 [place] Height 165.1 cm 11/25/2017 [place] Heart Rate 86 11/25/2017 [place] Heart Rate 66 04/29/2017 [place] Systolic (mm Hg) 173 04/29/2017 MH [place] Diastolic (mm Hg) 50 04/29/2017 [place] Systolic (mm Hg) 176 04/29/2017 MH [place] Diastolic (mm Hg) 50 04/29/2017 [facility] [place] Respitory Rate 17 04/29/2017 [place] Heart Rate 57 04/29/2017 MH [place] Temperature Oral (F) 98.4 F 04/29/2017 [place] Temperature Oral (F) 97.8 F 04/29/2017 [place] Heart Rate 57 04/29/2017 [place] Respitory Rate 16 04/29/2017 [place] Systolic (mm Hg) 159 04/29/2017 [place] Diastolic (mm Hg) 75 04/29/2017 [place] Respitory Rate 16 04/29/2017 [place] Temperature Oral (F) 98.4 F 04/29/2017 [place] BMI Calculated 25.13 04/22/2017 [place] Weight 68.5 04/22/2017 [place] Height 165.1 cm 04/22/2017 [place] BMI Calculated 25.13 04/22/2017 [place] Weight 68.5 04/22/2017 [place] Height 165.1 cm 04/22/2017 [place] Height 165.1 cm 04/22/2017 [place] Encounters Location Location Encounter Encounter Reason Attending ADM ND Stat us Source Details Type Number For Provider Date Date Visit [facility] [id number] Gregg 04/22 04/30 KEVON Sandra /2017 [facility] Inpatient [id number] Bruno 11/25 11/27 KEVON Jones /2017 [facility] Office [id number] Silvana 10/17 10/[address] [facility] Health Visit Yana DE LOS SANTOS [id number] Silvana 11/[address] [facility] Health (Out) [facility] [id number] Silvana 11/28 11/[address] [facility] Health Visit Yana DE LOS SANTOS /2018 [facility] Procedure Code Date Perfomer Comments Source Bilateral extraction [id number] [place] of cataracts Caesarean section [id number] [place] Carotid angiogram [id number] [place] Cholecystectomy [id number] [place] Provision of stents [id number] Kidney Pe arland or bite stents blocks<sup>1</sup> placed Assessment and Plan Assessment and Plan Date Source Extracted from:Title: Nephrology progress note 11/27/2017 [place] Author: Eliseo Schultz MD Date: 11/26/17 Impression and Plan 87-year-old female with history of hyper tension, diabetes, end-stage renal disease on hemodialysis, congestive heart failure, chronic anemia, who presented to emergency room complaining of shortness of breath. 1. End-stage renal disease on hemodialy sis. Hemodialysis on Tuesday and Tuesday. Last hemodialysis last Tuesday. Access left upper extremity AV fistula. Painting Worker Dr. Guardado. No hyperkalemia. Euvolemic. S/p Urgent HD on 11/25/2017 with net fluid removal of 4L 2. Severe anemia. S/p transfusion of 2 Units of Pack RBC, C urrent HB: 8.9 3. Fluid overload improved. 4. Chronic congestive heart failure. 5. Diabetes mellitus type 2. 6. Thrombocytopenia, resolved. 7. Mild hyponatremia. Recommendation. Renal diet. Limit fluids to 1l day. Continue Epogen 7,000 units subcutaneous 3 times daily. No need for HD today. Any question please call [phone] Extracted from:Title: Nephrology consultation. Author: Eliseo Schultz MD Date: 11/25/17 Impression and Plan 87-year-old female with history of hyper tension, diabetes, end-stage renal disease on hemodialysis, congestive heart failure, chronic anemia, who presented to emergency room complaining of shortness of breath. 1. End-stage renal disease on hemodialy sis. Hemodialysis on Tuesday and Tuesday. Last hemodialysis last Tuesday. Access left upper extremity AV fistula. Painting Worker Dr. Guardado. No hyperkalemia. Clinically hypervolemic. 2. Severe anemia. 3. Fluid overload. 4. Chronic congestive heart failure. 5. Diabetes mellitus type 2. 6. Thrombocytopenia. Recommendation. Stat hemodialysis with transfusion of 2 units of packed RBC. Epogen 7,000 units subcutaneous 3 times daily. Anemia workup. Discussed case with Dr. Jones. Thank you for the consultation, any question please call [phone] Extracted from:Title: History and Physical Author: Bruno Jones DO Date: 11/25/17 1.Anemia Acute on chronic. No overt bleeding note d, guaiac negative as well. No role for GI evaluation at this time. Deferred outpatient follow-up however patient has hadGI evaluation in the past which has been negative. Anemia panel reflective of anemia of chronic disea se. 2.ESRD on hemodialysis Appreciate nephrology recommendations, this was hemodialysis yesterday. 3.CHF (congestive heart failure) Per history recommend outpatient cardiology evaluation. Ordered: Admit/Condition, 11/25/17 14:54:00 CDT, Status: Inpatient, Telemetry, Expected LOS: 2 Midnights, Bruno Jones DO, Admit MD Review/Approve Yes, Isolation: No Isolation/Standard Precautions 4.Volume overload To above Ordered: Admit/Condition, 11/25/17 14:54:00 CDT, Status: Inpatient, Telemetry, Expected LOS: 2 Midnights, Bruno Jones DO, Admit MD Review/Approve Yes, Isolation: No Isolation/Standard Precautions 5.Benign hypertension Started on home medications, uncontrolle dpatient was transferred to [facility] for further blood pressure monitoring. 6.Diabetes mellitus Sliding scale insulin, blood sugar monitoring 7.Gastroesophageal reflux disease Outpatient follow-up 8.Hypercholesterolemia Outpatient follow-up Ambulation Hemoglobin has improved status posttra nsfusions, serial hemoglobin checks,continueblood pressuremonitoring. Extracted from:Title: Nephrology* 04/30/2017 Yury henson Author: Karri Willis MD Date: 04/28/17 Impression and Plan 1.ESRD on HD 2.Volume overload imrpoved with HD 3.Acute hypoxic resp failrue due to #2 improved 4.Hypertensive heart and CKD 5.Anemia in CKD 6.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 Recs: Dialyzed today HD again tomorrow per MWF If Hb lower than 7 PRBCs in HD BP control DM control per primary Extracted from:Title: Consult Note Author: Stoney Matute MD Date: 04/22/17 1.Benign hypertension Uncontrolled Hypertension: on nifedipine, hydralazine, losartan, doxasin HD today for metabolic and volume clearance 2.ESRD (end stage renal disease) HDMWF renal diet strict intake/output 3.Anemia in chronic kidney disease (CKD) Hg low check iron studies add CARTER 4.Dyspnea likely CHF, check CXR Acute congestive heart failure with left ventricular diasto lic dysfunction Extracted from:Title: General Admission H&P * Author: Eliseo Schultz MD Date: 04/22/17 Impression and Plan 86-year-old female with history of hyper tension, diabetes mellitus, congestive heart failure, presented to outside emergency room complaining of shortness of breath. Patient evaluated in the emergency room at [facility]. Tra nsfer for fluid overload and exacerbation of congestive heart failure. 1. Shortness of breath related to 2. 2. Acute decompensation of congestive h eart failure/fluid overload. Unknown creatinine baseline. 3. End-stage renal disease on hemodialys is. Hemodialysis on Tuesday and Tuesday. Access left upper extremity AV fistula. Last hemodialysis on Tuesday. Noncompliant with fluid restriction and diet. Renal consult for for Dr. Matute 4. Hypertension urgency. Resume blood pressure medication. If blood pressure persistently high, nicardipine drip. 5. Diabetes mellitus type 2. Not on in sulin not on p.o. medication. Diet controlled. Accu-Chek fingerstick and insulin sliding scale. 6. DVT prophylaxis. Heparin subcutaneous. Plan of Care Plan of Care Date Source INFLUENZA VACCINE (#1) 2018 [facility] Upcoming EncountersDateTypeSpecialtyCare TeamDescription [facility] 11/28/2018 Office Visit Vascular Surgery Silvana Millan MD[address] [place], [place] [phone] (Fax) Health MaintenanceDue DateLast DoneComments DTaP,Tdap,and Td Vaccines (1 - Tdap) 1949 Zoster Recombinant Vaccine (SHINGRIX) (1 of 2) 1980 Medicare Wellness Visit 09/27/1995 Osteoporosis Screening 09/27/1995 PNEUMOCOCCAL VACCINES 65+ (1 of 2 - PCV13) 09/27/1995 INFLUENZA VACCINE 11/19/2018 documented as of this encounter Medicare Wellness Visit 09/27/1995 [facility] Zoster Recombinant Vaccine (SHINGRIX) (1 of 2) 1980 [facility] DTaP,Tdap,and Td Vaccines (1 - Tdap) 1949 [facility] Health Social History Social History Date Source Tobacco UseTypesPacks/DayYears UsedDate 11/28/2018 [facility] Never Smoker Smokeless Tobacco: Never Used Sex Assigned at BirthDate Recorded Not on file Job Start DateOccupationIndustry Not on file Not on file Not on file Travel HistoryTravel StartTravel End No recent travel history available. documented as of this encounter Social History TypeResponse 11/25/2017 [place] Smoking Status Former smoker; Type: Cigarettes; Previou s treatment: None; Ready to change: Yes; Concerns about tobacco use in household: No; Exposure to Tobacco Smoke None; Cigarette Smoking Last 365 Days No; Reg Smoking Cessation Counseling Yes entered on: 11/25/17 Family History No Data Provided for This Section Advance Directives No Data Provided for This Section Functional Status No Data Provided for This Section
--- OUTSIDE RECORDS SUMMARY | 2019-08-04 18:51 | XMS REPORT | Summary of Care ---
:1930 Author Organization [facility] Address [id number] [place] [id number] Encounter HQ Chelar_estrella(FIN) [id number] Date(s): 11/25/17 - 11/26/[address] [phone] Encounter Diagnosis Anemia, unspecified (Final) - 02/17/18 End stage renal disease (Final) - Hypertensive heart and chronic kidney disease with heart failure and with stage 5 chronic kidney disease, or end stage renal disease (Final) - Hypo-osmolality and hyponatremia (Final) - Nontoxic single thyroid nodule (Final) - Type 2 diabetes mellitus with diabetic chronic kidney disease (Final) - Pure hypercholesterolemia, unspecified (Final) - Heart failure, unspecified (Final) - Unilateral primary osteoarthritis, unspecified knee (Final) - Anemia in other chronic diseases classified elsewhere (Final) - Thrombocytopenia, unspecified (Final) - Hypertensive urgency (Final) - Gastro-esophageal reflux disease without esophagitis (Final) - Nicotine dependence, cigarettes, uncomplicated (Final) - 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) - Discharge Disposition: Home or Self Care Attending Physician: Bruno Jones DO Admitting Physician: Bruno Jones DO Referring Physician: Escobar Rhoades Vital Signs Most recent to oldest [Reference 1 2 3 Range]: Height 165.1 cm (11/25/17 4:59 PM) Temperature Oral [96.4-99.1 DegF] 98.0 DegF 97.6 DegF 98.5 DegF (11/26/17 12:00 PM) (11/26/17 7:30 AM) (11/26/17 5:00 AM) Blood Pressure [90-140/60-90 137/58 mmHg 120/100 mmHg 131 /54 mmHg mmHg] (11/26/17 7:00 PM) (11/26/17 6:00 PM) (11/26/17 5:00 P M) Respiratory Rate [14-20 BRMIN] 18 BRMIN 16 BRMIN 1 7 BRMIN (11/26/17 7:00 PM) (11/26/17 6:00 PM) (11/26/17 5:00 P M) Peripheral Pulse Rate [60-100 75 bpm 83 bpm 86 bpm bpm] (11/25/17 9:22 PM) (11/25/17 6:45 PM) (11/25/17 2:30 P M) Weight 65.909 kg (11/25/17 4:59 PM) Body Mass Index 24.18 m2 (11/25/17 4:59 PM) Problem List Condition Effective Dates Status Health Status Informant Abnormal cytology findings1 10/18/11 Active Benign hypertension(Confirmed)2 Active Constipation3 Active Diabetes mellitus(Confirmed)4 Active Gastroesophageal reflux 08/28/12 Active disease(Confirmed)5 Hip pain6 01/03/13 Active Hypercholesterolemia(Confirmed)7 Active Impaired glucose tolerance8 Active Iron deficiency anemia9 12/27/12 Active Long-term drug pvjeieg18 11/01/11 Active Loss of eomhpzny04 12/27/12 Active Lung mass12 05/03/12 Active Malaise and hhrqjuq13 11/01/11 Active Osteoarthritis of knee14 01/05/12 Active Thyroid mnwulw34 05/03/12 Active 1Data migrated from [employer] on 08/17/14.2Data migrated from [employer] on 08/17/14.3Data migrated from [employer] on 08/17/14.4Data migrated from [employer] on 08/17/14.5Data migrated from [employer] on 08/17/14.6Data migrated from [employer] on 08/17/14.7Data migrated from [employer] on 08/17/14.8Data migrated from [employer] on 08/17/14.9Data migrated from [employer] on 08/17/14.10Data migrated from [employer] on 08/17/14.11Data migrated from [employer] on 08/17/14.12Data migrated from [employer] on 08/17/14.13Data migrated from [employer] on 08/17/14.14Data migrated [...] Pain 1-3/Temp > 100.4 F, Start date: 11/25/17 14:54:00 CDT, Duration: 30 day, Stop date: 12/25/17 14:53:00 CDT Notes: Do not exceed 4 gm/day. (Same as: Tylenol) Start Date: 11/25/17 Stop Date: 11/27/17 Status: Discontinuedacetaminophen-hydrocodone 325 mg-5 mg oral tablet 1 tab, Route: PO, Drug Form: TAB, Dosing Weight 68.5, kg, Q4H, PRN Pain Score 4- 6, Start date: 11/25/17 14:54:00 CDT, Duration: 30 day, Stop date: 12/25/17 14:53:00 CDT Notes: (Same as: Baltic 325/5) Do not exceed 4gm/day of acetaminophen. Start Date: 11/25/17 Stop Date: 11/27/17 Status: Discontinuedaspirin 81 mg, 1 tab, Route: PO, Drug form: ECTAB, Daily, Dosing Weight 65.909, kg, Start date: 11/26/17 9:00:00 CDT, Duration: 30 day, Stop date: 12/25/17 9:00:00 CDT Notes: Do not crush or chew.(Same As: Ecotrin) Start Date: 11/26/17 Stop Date: 11/27/17 Status: DiscontinuedcloNIDine 0.3 mg, 1 tab, Route: PO, Drug form: TAB, ONCE, Dosing Weight 65.909, kg, PRN Elevated BP, Priority:STAT, Start date: 11/25/17 21:35:00 CDT Notes: (Same As: Catapres) Start Date: 11/25/17 Stop Date: 11/25/17 Status: CompletedcloNIDine 0.3 mg, PO, BID, 0 Refill(s) Start Date: 11/25/17 Stop Date: 12/25/17 Status: OrderedcloNIDine 0.3 mg oral tablet 0.3 mg, 1 tab, Route: PO, Drug form: TAB, BID, Dosing Weight 65.909, kg, Start date: 11/26/17 9:00:00 CDT, Duration: 30 day, Stop date: 12/25/17 17:00:00 CDT Notes: (Same As: Catapres) Start Date: 11/26/17 Stop Date: 11/27/17 Status: Discontinueddoxazosin 8 mg, 2 tab, Route: PO, Drug form: TAB, Daily, Dosing Weight 65.909, kg, Start date: 11/26/17 9:00:00 CDT, Duration: 30 day, Stop date: 12/25/17 9:00:00 CDT Notes: (Same as: Rob) Start Date: 11/26/17 Stop Date: 11/27/17 Status: Discontinuedepoetin ana rosa 7,000 unit, 0.7 mL, Route: SUB-Q, Drug form: INJ, Q-M-W-F, Start date: 11/25/17 23:00:00 CDT, Duration: 30 day, Stop date: 12/23/17 17:00:00 CDT Notes: (Same as: Procrit) epoetin ana rosa 29329 unit/1 ml VL.For dialysis use only. (Procrit)WASTE: F/P- Red; E -Red MEDICATION WASTE Product Size: 70589 unitProduct Wasted: ___ unit Start Date: 11/25/17 Stop Date: 11/27/17 Status: DiscontinuedEpogen (ESRD) 3,000 unit, 1 mL, Route: SUB-Q, Drug form: INJ, Q-M-W-F, Dosing Weight 65.909, kg, Start date: 11/25/17 23:00:00 CDT, Duration: 30 day, Stop date: 12/23/17 9:00:00 CDT Notes: (Same as: Procrit) epoetin ana rosa 3000 unit/1 ml VL.For dialysis use onlyWASTE: F/P - Red; E -Red MEDICATION WASTE Product Size: 3000 unitProduct Wasted: ___ unit Start Date: 11/25/17 Stop Date: 11/25/17 Status: DeletedhydrALAZINE 10 mg, 0.5 mL, Route: IVP, Drug form: INJ, Q6H, Dosing Weight 68.5, kg, PRN Hypertension, Start date: 11/25/17 14:56:00 CDT, Duration: 30 day, Stop date: 12/25/17 14:55:00 CDT Notes: (Same as: Apresoline)Push over 5 minutes Start Date: 11/25/17 Stop Date: 11/27/17 Status: DiscontinuedhydrALAZINE 5 mg, Route: IVP, ONCE, Dosing Weight 65.909, kg, Start date: 11/25/17 19:59:00 CDT, Stop date: 11/25/17 19:59:00 CDT Start Date: 11/25/17 Stop Date: 11/25/17 Status: CompletedhydrALAZINE 100 mg oral tablet 100 mg, 2 tab, Route: PO, Drug form: TAB, Q8H, Dosing Weight 65.909, kg, Start date: 11/27/17 0:00:00 CDT, Duration: 30 day, Stop date: 12/26/17 16:00:00 CDT Notes: (Same as: Apresoline) May interfere w/enteral feedings Take With Food Start Date: 11/27/17 Stop Date: 11/27/17 Status: DiscontinuedhydrALAZINE 100 mg oral tablet 100 mg, 2 tab, Route: PO, Drug form: TAB, Q12H, Dosing Weight 65.909, kg, Start date: 11/25/17 21:00:00 CDT, Duration: 30 day, Stop date: 12/25/17 9:00:00 CDT Notes: (Same as: Apresoline) May interfere w/enteral feedings Take With Food Start Date: 11/25/17 Stop Date: 11/26/17 Status: DiscontinuedhydrALAZINE 100 mg oral tablet 100 mg = 1 tab, PO, Q8H, # 90 tab, 2 Refill(s), Pharmacy: [facility]/pharmacy #[id number] Start Date: 11/26/17 Stop Date: 02/24/18 Status: Orderedisosorbide mononitrate extended release 30 mg, 1 tab, Route: PO, Drug form: ERTAB, BID, Dosing Weight 65.909, kg, Start date: 11/26/17 9:00:00 CDT, Duration: 30 day, Stop date: 12/25/17 17:00:00 CDT Notes: (Same as:Imdur)"Do Not Crush" Take on empty stomach/ full glass of water. Do not crush Start Date: 11/26/17 Stop Date: 11/27/17 Status: DiscontinuedLipitor 80 mg, PO, Daily, at bedtime, 0 Refill(s) Start Date: 11/25/17 Status: OrderedNIFEdipine 90 mg oral tablet, extended release 90 mg, 3 tab, Route: PO, Drug form: ERTAB, BID, Dosing Weight 65.909, kg, Start date: 11/25/17 20:35:00 CDT, Duration: 30 day, Stop date: 12/25/17 17:00:00 CDT Notes: (Same as: Adalat CC, Procardia XL) Give on empty stomach. Take 1 hour before or 2 hours after meal; "Avoid grapefruit and grapefruit juice". Do not crush Start Date: 11/25/17 Stop Date: 11/27/17 Status: DiscontinuedPlavix 75 mg, 1 tab, Route: PO, Drug form: TAB, Daily, Dosing Weight 65.909, kg, Start date: 11/26/17 9:00:00 CDT, Duration: 30 day, Stop date: 12/25/17 9:00:00 CDT Notes: (Same As: Plavix) Start Date: 11/26/17 Stop Date: 11/27/17 Status: Discontinuedramipril 10 mg oral capsule See Instructions, 1 cap PO Daily 30 day, 0 Refill(s) Start Date: 11/25/17 Status: OrderedSodium Chloride 0.9% (Bolus) IV 1,000 mL, 1,000 ml/hr, Infuse Over: 1 hr, Route: IV, 1,000, Drug form: INJ, PRN, Priority: STAT, Dosing Weight 68.5 kg, Start date: 11/25/17 16:55:00 CDT, Duration: 30 day, Stop date: 12/25/17 16:54:00CDT, PRN Dialysis Start Date: 11/25/17 Stop Date: 11/27/17 Status: DiscontinuedSodium Chloride 0.9% (titrate) 250 mL 250 mL, Rate: To prime line and flush remaining blood products., Dosing Weight 68.5, kg, Route: IV, Total Volume: 250, Start Date: 11/25/17 16:49:00 CDT, Duration: 30 day, Stop date: 12/25/17 16:48:00 CDT, Replace Every: 24 hr Start Date: 11/25/17 Stop Date: 11/27/17 Status: DiscontinuedTylenol with Codeine #3 oral tablet 1 tab, PO, Q6H, PRN Pain, # 28 tab, 0 Refill(s) Start Date: 11/25/17 Stop Date: 12/02/17 Status: Ordered Results BLOOD BANK RESULTS Most recent to oldest [Reference Range]: 1 2 ABO/Rh A NEG *Unknown* (11/25/17 5:20 PM) Antibody Scrn Negative (11/25/17 5:20 PM) RBC product Product available 1 Product available 2 (11/25/17 6:45 PM) (11/25/17 5:20 PM) 1Result Comment: 11/25/2017 18:46 [id number] Blood available, notified Wilbert/ Evelyn at 11/25/2017 18:46_ by _LL.2Result Comment: 11/25/2017 19:32 [id number] called to sandro for scrap picker at 1923 11/25/2017 19:32 [email or web address] Most recent to oldest [Reference Range]: 1 2 Sodium Lvl [135-145 mEq/L] 134 mEq/L 138 mEq/L *LOW* (11/25/17 5:20 PM) (11/26/17 10:22 AM) Potassium Lvl [3.5-5.1 mEq/L] 3.9 mEq/L 3.7 mEq/L (11/26/17 10:22 AM) (11/25/17 5:20 PM) Chloride Lvl [95-109 mEq/L] 98 mEq/L 101 mEq/L (11/26/17 10:22 AM) (11/25/17 5:20 PM) CO2 [24-32 mEq/L] 27 mEq/L 27 mEq/L (11/26/17 10:22 AM) (11/25/17 5:20 PM) AGAP [10.0-20.0 mEq/L] 12.9 mEq/L 13.7 mEq/L (11/26/17 10:22 AM) (11/25/17 5:20 PM) CHEM PANEL Most recent to oldest [Reference Range]: 1 2 Creatinine Lvl [0.50-1.40 mg/dL] 3.20 mg/dL 4.96 mg /dL *HI* *HI* (11/26/17 10:22 AM) (11/25/17 5:20 PM) eGFR 14 mL/min/1.73m2 1 8 mL/min/1.73m2 2 *NA* *NA* (11/26/17 10:22 AM) (11/25/17 5:20 PM) BUN [7-22 mg/dL] 22 mg/dL 41 mg/dL (11/26/17 10:22 AM) *HI* (11/25/17 5:20 PM) B/C Ratio [6-25] 8 (11/25/17 5:20 PM) Glucose Lvl [70-99 mg/dL] 190 mg/dL 114 mg/dL *HI* *HI* (11/26/17 10:22 AM) (11/25/17 5:20 PM) Total Protein [6.4-8.4 g/dL] 7.0 g/dL (11/25/17 5:20 PM) Albumin Lvl [3.5-5.0 g/dL] 3.1 g/dL *LOW* (11/25/17 5:20 PM) Globulin [2.7-4.2 g/dL] 3.9 g/dL (11/25/17 5:20 PM) A/G Ratio [0.7-1.6] 0.8 (11/25/17 5:20 PM) Calcium Lvl [8.5-10.5 mg/dL] 8.1 mg/dL 8.0 mg/dL *LOW* *LOW* (11/26/17 10:22 AM) (11/25/17 5:20 PM) ALT [0-65 unit/L] 25 unit/L (11/25/17 5:20 PM) AST [0-37 unit/L] 31 unit/L (11/25/17 5:20 PM) Alk Phos [39-136 unit/L] 73 unit/L (11/25/17 5:20 PM) LDH [98-192 unit/L] 207 unit/L *HI* (11/25/17 7:10 PM) Bili Total [0.2-1.3 mg/dL] 0.4 mg/dL 0.4 mg/dL (11/25/17 7:10 PM) (11/25/17 5:20 PM) Bili Direct [0.0-0.3 mg/dL] 0.2 mg/dL (11/25/17 7:10 PM) Bili Indirect [0.0-1.0 mg/dL] 0.2 mg/dL (11/25/17 7:10 PM) 1Result Comment: The eGFR is calculated using [...] eGFR should be multiplied by the estimated BMI.ANEMIA STUDY Most recent to oldest [Reference Range]: 1 2 Ferritin Lvl [5-204 ng/mL] 2302 ng/mL *HI* (11/25/17 7:10 PM) Vitamin B12 Lvl [254-1320 pg/mL] 707 pg/mL (11/25/17 7:10 PM) Folate Lvl [>=3.0 ng/mL] 31.9 ng/mL (11/25/17 7:10 PM) AMINO ACID Most recent to oldest [Reference Range]: 1 2 MMA Qnt [0-378 nMol/L] 572 nMol/L *HI* (11/25/17 7:10 PM) ORGANIC ACID Most recent to oldest [Reference Range]: 1 2 Disclaimer (Org Acid) Comment 1 *NA* (11/25/17 7:10 PM) 1Result Comment: This test was developed and its performance characteristics determined by [facility]. It has not been cleared or approved by the Food and Drug Administration. Performed At: [address] [id number] Delicia Simeon MD Ph:[phone] Most recent to oldest [Reference Range]: 1 2 Homocyst Tot [3.7-13.9 uMol/L] 25.8 uMol/L *HI* (11/25/17 7:10 PM) Hep Bs Ag [Negative] Negative *NA* (11/25/17 5:20 PM) HEMATOLOGY Most recent to oldest [Reference Range]: 1 2 WBC [3.7-10.4 K/CMM] 8.6 K/CMM 6.3 K/CMM (11/26/17 10:22 AM) (11/25/17 5:20 PM) RBC [4.20-5.40 M/CMM] 2.73 M/CMM 1.95 M/CMM *LOW* *LOW* (11/26/17 10:22 AM) (11/25/17 5:20 PM) Hgb [12.0-16.0 g/dL] 8.9 g/dL 6.3 g/dL 1 *LOW* *CRIT* (11/26/17 10:22 AM) (11/25/17 5:20 PM) Hct [36.0-48.0 %] 25.9 % 18.3 % 2 *LOW* *CRIT* (11/26/17 10:22 AM) (11/25/17 5:20 PM) MCV [80.0-98.0 fL] 94.8 fL 93.7 fL (11/26/17 10:22 AM) (11/25/17 5:20 PM) MCH [27.0-31.0 pg] 32.7 pg 32.4 pg *HI* *HI* (11/26/17 10:22 AM) (11/25/17 5:20 PM) MCHC [32.0-36.0 g/dL] 34.5 g/dL 34.5 g/dL (11/26/17 10:22 AM) (11/25/17 5:20 PM) RDW [11.5-14.5 %] 15.1 % 16.3 % *HI* *HI* (11/26/17 10:22 AM) (11/25/17 5:20 PM) MPV [7.4-10.4 fL] 8.2 fL 8.1 fL (11/26/17 10:22 AM) (11/25/17 5:20 PM) Platelet [133-450 K/CMM] 137 K/CMM 129 K/CMM (11/26/17 10:22 AM) *LOW* (11/25/17 5:20 PM) Segs [45.0-75.0 %] 84.8 % 80.8 % *HI* *HI* (11/26/17 10:22 AM) (11/25/17 5:20 PM) Lymphocytes [20.0-40.0 %] 8.4 % 13.0 % *LOW* *LOW* (11/26/17 10:22 AM) (11/25/17 5:20 PM) Monocytes [2.0-12.0 %] 5.3 % 5.5 % (11/26/17 10:22 AM) (11/25/17 5:20 PM) Eosinophils [0.0-4.0 %] 0.9 % 0.2 % (11/26/17 10:22 AM) (11/25/17 5:20 PM) Basophils [0.0-1.0 %] 0.6 % 0.5 % (11/26/17 10:22 AM) (11/25/17 5:20 PM) Neutrophils # [1.5-8.1 K/CMM] 7.3 K/CMM 5.1 K/CMM (11/26/17 10:22 AM) (11/25/17 5:20 PM) Lymphocytes # [1.0-5.5 K/CMM] 0.7 K/CMM 0.8 K/CMM *LOW* *LOW* (11/26/17 10:22 AM) (11/25/17 5:20 PM) Monocytes # [0.0-0.8 K/CMM] 0.5 K/CMM 0.3 K/CMM (11/26/17 10:22 AM) (11/25/17 5:20 PM) Eosinophils # [0.0-0.5 K/CMM] 0.1 K/CMM (11/26/17 10:22 AM) Basophils # [0.0-0.2 K/CMM] 0.1 K/CMM (11/26/17 10:22 AM) RBC Morph See Note (11/25/17 5:20 PM) Anisocyte [None Seen] 1+ *ABN* (11/25/17 5:20 PM) Hypochrom [None Seen] 1+ (11/25/17 5:20 PM) Microcyte [None Seen] 1+ *ABN* (11/25/17 5:20 PM) Tear Cell Few *NA* (11/25/17 5:20 PM) Spherocyte [None Seen] Occasional *ABN* (11/25/17 5:20 PM) Plt Morph Normal (11/25/17 5:20 PM) Retic Auto [0.5-1.5 %] 1.6 % *HI* (11/25/17 7:10 PM) 1Result Comment: Critical Result(s) called to [facility]/ at _11/25/2017 17:31 by_cg Read back OK.2Result Comment: Critical Result(s) called to [facility]/ at _11/25/2017 17:31 by_cg Read back OK.BACTERIAL - SEROLOGY Most recent to oldest [Reference Range]: 1 2 MRSA by PCR Negative (11/26/17 12:49 AM) Immunizations Given and Recorded Vaccine Date Status Refusal Reason Hx influenza vaccine-unspecified1 12/23/11 Given 1Result Comment: flu shot. Migrated from [employer] ; Data migrated from [employer] on 04/22/2015. Procedures Procedure Date Related Diagnosis Body Site Status Bilateral extraction of cataracts Completed Caesarean section Completed Carotid angiogram Completed Cholecystectomy Completed Provision of stents or bite blocks1 Completed 1Kidney stents placed Social History Social History Type Response Smoking Status Former smoker; Type: Cigaret jeremías; Previous treatment: None; Ready to change: Yes; Concerns about tobacco use in household: No; Exposure to Tobacco Smoke None; Cigarette Smoking Last 365 Days No; Reg Smoking Cessation Counseling Yes entered on: 11/25/17 Assessment and Plan Extracted from: Title: Nephrology progress note Author: Elizabet Schultz Date: 11/26/17 [place] DE [place] S[place]OS Impression and Plan 87-year-old female with history of hyper tension, diabetes, end-stage renal disease on hemodialysis, congestive heart failure, chronic anemia, who presented to emergency room complaining of shortness of breath. 1. End-stage renal disease on hemodialy sis. Hemodialysis on Tuesday and Tuesday. Last hemodialysis last Tuesday. Access left upper extremity AV fistula. 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 No hyperkalemia. Euvolemic. S/p Urgent HD on 11/25/2017 with net flu id removal of 4L 2. Severe anemia. S/p transfusion of 2 Units of Pack RBC, Current HB: 8.9 3. Fluid overload improved. 4. Chronic congestive heart failure. 5. Diabetes mellitus type 2. 6. Thrombocytopenia, resolved. 7. Mild hyponatremia. Recommendation. Renal diet. Limit fluids to 1l day. Continue Epogen 7,000 units subcutaneous 3 times daily. No need for HD today. Any question please call [phone] Extracted from: Title: Nephrology consultation. Author: Elizabet Schultz Date: 11/25/17 Gabino DE LOS SANTOS Impression and Plan 87-year-old female with history of hyper tension, diabetes, end-stage renal disease on hemodialysis, congestive heart failure, chronic anemia, who presented to emergency room complaining of shortness of breath. 1. End-stage renal disease on hemodialy sis. Hemodialysis on Tuesday and Tuesday. Last hemodialysis last Tuesday. Access left upper extremity AV fistula. 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 No hyperkalemia. Clinically hypervolemi c. 2. Severe anemia. 3. Fluid overload. 4. Chronic congestive heart failure. 5. Diabetes mellitus type 2. 6. Thrombocytopenia. Recommendation. Stat hemodialysis with transfusion of 2 units of packed RBC. Epogen 7,000 units subcutaneous 3 times daily. Anemia workup. Discussed case with Dr. Jones. Thank you for the consultation, any ques tion please call [phone] Extracted from: Title: History and Physical Author: Bruno Jones DO Date: 11/25/17 1.Anemia Acute on chronic. No overt bleeding no ella, guaiac negative as well. No role for GI evaluation at this time. Deferred outpatient follow-up however patient has hadGI evaluation in the past which h as been negative. Anemia panel reflect speedy of anemia of chronic disease. 2.ESRD on hemodialysis Appreciate nephrology recommendations, t his was hemodialysis yesterday. 3.CHF (congestive heart failure) Per history recommend outpatient cardiol ogy evaluation. Ordered: Admit/Condition, 11/25/17 14:54:00 CDT, Status: Inpatient, Telemetry, Expected LOS: 2 Midnights, Bruno Jones DO, Admit MD Review/Approve Yes, Isolation: No Isolation/Standard Precautions 4.Volume overload To above Ordered: Admit/Condition, 11/25/17 14:54:00 CDT, Status: Inpatient, Telemetry, Expected LOS: 2 Midnights, Jones, Peter DO, Admit MD Review/Approve Yes, Isolation: No Isolation/Standard Precautions 5.Benign hypertension Started on home medications, uncontrolle dpatient was transferred to [facility] for further blood pressure monitoring. 6.Diabetes mellitus Sliding scale insulin, blood sugar monit oring 7.Gastroesophageal reflux disease Outpatient follow-up 8.Hypercholesterolemia Outpatient follow-up Ambulation Hemoglobin has improved status postt ransfusions, serial hemoglobin checks,continueblood pressuremonitoring.
--- OUTSIDE RECORDS SUMMARY | 2019-08-04 18:53 | XMS REPORT ---
:1930 Author Organization [facility] t Address [address] [place] [address] Care Team Providers Name Role Phone Raudel Marie MD Primary Care Physician Nat HUMPHREY Attending Clinician Unavailable Yana DE LOS SANTOS Attending Clinician Robert Attending Clinician Jocy Attending Clinician Nat HUMPHREY Admitting Clinician Unavailable Robert Admitting Clinician Jocy Admitting Clinician Problems This patient has no known problems. Allergies, Adverse Reactions, Alerts Allergy Allergy Status Severity Reaction(s) Onset Inactive Treating Comm ents Source Name Type Date Date Clinician Fexofena Propensi Active Other (See Karlene - Panfilo dine ty to Comments) 09-24 "makes Methodi adverse 00:00: her sick" st reaction 00 per pt s to daughter drug Ciproflo Propensi Active Other (See Ciproflox Panfilo xacin ty to Comments) 09-24 acin - Methodi adverse 00:00: unknown st reaction 00 reaction s to per pt drug and pt daughter Gatiflox Propensi Active [place] ty to 09-24 Methodi adverse 00:00: st reaction 00 s to drug Penicill Propensi Active Other (See Penicilli Panfilo in G ty to Comments) 09-24 n - Methodi adverse 00:00: unknown st reaction 00 per pt s to and pt drug daughter Social History Social Habit Start Date Stop Date Quantity Comments Source Sex Assigned At [place] [facility] Alcohol intake 2015-09-30 2015-09-30 Current [facility] thodist 00:00:00 00:00:00 non-drinker of alcohol (finding) Smoking Status Start Date Stop Date Source Never smoker [place] [facility] Medications Ordered Filled Start Stop Current Ordering Indication Dosage Frequency Signature Comments Components Source Medication Medication Date Date Medication? Clinician (SIG) Name Name aspirin Yes 81mg QD Take 81 mg [place] (ECOTRIN) 7-07 by mouth Method i 81 MG 20:36: daily. st enteric 05 coated tablet atorvastati 2015- Yes 80mg QD Take 80 mg [place] n (LIPITOR) 7-07 by mouth Meth evi 80 MG 20:36: daily. st tablet 05 carvedilol 2015- Yes 25mg Q.5D Take 25 mg [place] (COREG) 25 7-07 by mouth 2 Met hodi MG tablet 20:36: (two) st 05 times a day with meals. clopidogrel Yes 75mg QD Take 75 mg [place] (PLAVIX) 75 7-07 by mouth Meth evi mg tablet 20:36: daily. st 05 docusate 2015- Yes 100mg Q.5D Take 100 [place] sodium 7-07 mg by Methodi (COLACE) 20:36: mouth 2 st 100 MG 05 (two) capsule times a day. hydrALAZINE 2015- Yes 100mg Q.[id number] Take 100 [place] (APRESOLINE 7-07 [id number] mg by Ravi chavis ) 100 MG 20:36: 3D mouth 3 st tablet 05 (three) times a day. isosorbide 2016-0 Yes 60mg QD Take 60 mg [place] mononitrate 7-07 by mouth Meth evi (IMDUR) 60 20:36: daily. st MG 24 hr 05 tablet sitaGLIPtin 2016-0 Yes 100mg QD Take 100 [place] (JANUVIA) 7-07 mg by Methodi 100 MG 20:36: mouth st tablet 05 daily. losartan 2016-0 Yes 60mg QD Take 60 mg Roland ston (COZAAR) 7-07 by mouth Methodi 100 MG 20:36: daily. st tablet 05 megestrol 2015-0 Yes 40mg QD Take 40 mg [place] (MEGACE) 40 7-07 by mouth Meth evi MG tablet 20:36: daily. st 05 FOLIC Yes 1{tbl} QD Take 1 [place] ACID/VIT - tablet by Method i BCOMP,C 20:36: mouth st (NEPHRO-VIT 05 daily. E ORAL) NIFEdipine Yes 90mg Q.5D Take 90 mg [place] XL 707 by mouth 2 Methodi (PROCARDIA 20:36: (two) st XL) 90 MG 05 times a 24 hr day. tablet sertraline Yes 50mg QD Take 50 mg [place] (ZOLOFT) 50 7-07 by mouth Meth evi MG tablet 20:36: daily. st 05 Procedures This patient has no known procedures. Plan of Care Planned Activity Planned Date Details Comments Source Future Scheduled 2019-10-20 INFLUENZA VACCINE [place] [facility] 00:00:00 [code = INFLUENZA VACCINE] Future Scheduled 1995-09-27 65+ PNEUMOCOCCAL [place] [facility] 00:00:00 VACCINE (1 of 2 - PCV13) [code = 65+ PNEUMOCOCCAL VACCINE (1 of 2 - PCV13)] Future Scheduled 1980 SHINGLES VACCINES (#1) [place] [facility] 00:00:00 [code = SHINGLES VACCINES (#1)] Future Scheduled 1940 DIABETIC FOOT EXAM [place] [facility] 00:00:00 [code = DIABETIC FOOT EXAM] Future Scheduled 1940 URINE MICROALBUMIN [place] [facility] 00:00:00 [code = URINE MICROALBUMIN] Future Scheduled 1930 DIABETIC RETINAL EYE [facility] 00:00:00 EXAM [code = DIABETIC RETINAL EYE EXAM] Encounters Start End Encounter Admission Attending Care Care Encounter Source Date/Time Date/Time Type Type Clinicians Facility Department ID 2018-11-28 2018-11-28 Office KANG Millan [id number] 11:03:56 11:42:17 Visit Silvana Rao [id number] [place] [id number] [place] [phone] [place] [address] Building 2018-11-28 2018-11-28 Office KANG Millan [id number] [facility] - 11:03:56 11:42:17 Visit Silvana Rao [id number] [facility] [id number] Professio [phone] [address] 2018-11-28 2018-11-28 [facility] [id number] [facility] - 11:03:56 11:42:17 Visit Silvana Rao [id number] [facility] [id number] Professio [phone] [address] 2018-11-28 2018-11-28 Letter [facility] [id number] [facility] - 00:00:00 00:00:00 (Out) Silvana Rao [id number] [facility] [id number] Professio [phone] [address] 2018-10-17 2018-10-17 Office [facility] [id number] [facility] - 10:18:44 11:07:18 Visit Silvana Rao [id number] [facility] [id number] Professio [phone] [address] 2018-10-17 2018-10-17 [facility] [id number] [facility] - 10:18:44 11:07:18 Visit Silvana Rao [id number] [facility] [id number] Professio [phone] [address] 2017-11-25 2017-11-26 Outpatient Robert, PL [place] [id number] [facility] 14:33:00 20:17:00 Bruno [facility] 2017-04-21 2017-04-29 Outpatient Hamid, MHPL MHPL [id number] [facility] 22:59:00 19:15:00 Gregg [facility] Results Test Description Test Time Test Comments Results Result Comments Source WOUND CULTURE + GRAM STAIN 2019-02-19 17:15:00 Test Item Value Reference Range Interpretation Comme nts CULTURE (BEAKER) (test code = 1095) No growth GRAM STAIN RESULT (BEAKER) (test code = 1123) <1+ WBCs GRAM STAIN RESULT (BEAKER) (test code = 89604) No organisms seen POCT-GLUCOSE [id number] 12:10:00 Test Item Value Reference Range Interpretation Comments POC-GLUCOSE METER 77 mg/dL 70-110 : TESTED A T [facility] 6720 (BEAKER) ([facility], = 1538) [id number]: Administrator Health Care Facility/Techni dax ID = [id number] for Erickson Jacobo CBC W/PLT COUNT & AUTO [id number] 05:11:00 Test Item Value Reference Range Interpretation Comments WHITE BLOOD CELL COUNT (BEAKER) 7.5 K/ L 3.5-10.5 (test code = 775) RED BLOOD CELL COUNT (BEAKER) 2.47 M/ L 3.93-5.22 L (test code = 761) HEMOGLOBIN (BEAKER) (test code = 7.5 GM/DL 11.2-15.7 L 410) HEMATOCRIT (BEAKER) (test code = 24.6 % 34.1-44.9 L 411) MEAN CORPUSCULAR VOLUME (BEAKER) 99.6 fL 79.4-94.8 H (test code = 753) MEAN CORPUSCULAR HEMOGLOBIN 30.4 pg 25.6-32.2 (BEAKER) (test code = 751) MEAN CORPUSCULAR HEMOGLOBIN CONC 30.5 GM/DL 32.2-35.5 L (BEAKER) (test code = 752) RED CELL DISTRIBUTION WIDTH 15.3 % 11.7-14.4 H (BEAKER) (test code = 412) PLATELET COUNT (BEAKER) (test 183 K/CU MM 150-450 code = 756) MEAN PLATELET VOLUME (BEAKER) 9.6 fL 9.4-12.3 (test code = 754) NUCLEATED RED BLOOD CELLS 0 /100 WBC 0-0 (BEAKER) (test code = 413) NEUTROPHILS RELATIVE PERCENT 76 % (BEAKER) (test code = 429) LYMPHOCYTES RELATIVE PERCENT 15 % (BEAKER) (test code = 430) MONOCYTES RELATIVE PERCENT 5 % (BEAKER) (test code = 431) EOSINOPHILS RELATIVE PERCENT 4 % (BEAKER) (test code = 432) BASOPHILS RELATIVE PERCENT 0 % (BEAKER) (test code = 437) NEUTROPHILS ABSOLUTE COUNT 5.70 K/ L 1.56-6.13 (BEAKER) (test code = 670) LYMPHOCYTES ABSOLUTE COUNT 1.11 K/ L 1.18-3.74 L (BEAKER) (test code = 414) MONOCYTES ABSOLUTE COUNT (BEAKER) 0.39 K/ L 0.24-0.36 H (test code = 415) EOSINOPHILS ABSOLUTE COUNT 0.28 K/ L 0.04-0.36 (BEAKER) (test code = 416) BASOPHILS ABSOLUTE COUNT (BEAKER) 0.02 K/ L 0.01-0.08 (test code = 417) IMMATURE GRANULOCYTES-RELATIVE 0 % 0-1 PERCENT (BEAKER) (test code = 2801) POCT-GLUCOSE [id number] 21:01:00 Test Item Value Reference Range Interpretation Comments POC-GLUCOSE METER 105 mg/dL 70-110 : TESTED A T [facility] 6720 (BEAKER) (test code = [facility], 1538) [id number]: Administrator Health Care Facility/Techni dax ID = [id number] for VICKIE HORN VIOLETAvni POCT-GLUCOSE [id number] 21:00:00 Test Item Value Reference Range Interpretation Comments POC-GLUCOSE METER 138 mg/dL 70-110 H : TESTED A T [facility] 6720 (BEAKER) (test code = [facility], 1538) [id number]: Administrator Health Care Facility/Techni dax ID = [id number] for RYAN SANCHEZ JENNIFER POCT-GLUCOSE [id number] 09:13:00 Test Item Value Reference Range Interpretation Comments POC-GLUCOSE METER 77 mg/dL 70-110 : TESTED A T [facility] 6720 (BEAKER) (test code = [facility], 1538) [id number]: Administrator Health Care Facility/Techni dax ID = [id number] for FELTON KISER COMPREHENSIVE METABOLIC [id number] 06:33:00 Test Item Value Reference Range Interpretation Comments TOTAL PROTEIN 6.2 gm/dL 6.0-8.3 (BEAKER) (test code = 770) ALBUMIN (BEAKER) 3.1 g/dL 3.5-5.0 L (test code = 1145) ALKALINE PHOSPHATASE 89 U/L 40-150 (BEAKER) (test code = 346) BILIRUBIN TOTAL 0.5 mg/dL 0.2-1.2 (BEAKER) (test code = 377) SODIUM (BEAKER) (test 137 meq/L 136-145 code = 381) POTASSIUM (BEAKER) 4.4 meq/L 3.5-5.1 (test code = 379) CHLORIDE (BEAKER) 101 meq/L 98-107 (test code = 382) CO2 (BEAKER) (test 28 meq/L 22-29 code = 355) BLOOD UREA NITROGEN 19 mg/dL 7-21 (BEAKER) (test code = 354) CREATININE (BEAKER) 4.63 mg/dL 0.57-1.25 H (test code = 358) GLUCOSE RANDOM 75 mg/dL 70-105 (BEAKER) (test code = 652) CALCIUM (BEAKER) 8.6 mg/dL 8.4-10.2 (test code = 697) AST (SGOT) (BEAKER) 34 U/L 5-34 (test code = 353) ALT (SGPT) (BEAKER) 21 U/L 6-55 (test code = 347) EGFR (BEAKER) (test 11 mL/min/1.73 ESTIMA MEMO GFR IS code = 1092) sq m NOT ACCURATE CREATININE CLEARANCE IN PREDICTING GLOMERULAR FILTRATION RATE . ESTIMATED GFR I S NOT APPLICABLE FOR DIALYSIS PATIEN TS. CBC W/PLT COUNT & AUTO [id number] 05:46:00 Test Item Value Reference Range Interpretation Comments WHITE BLOOD CELL COUNT (BEAKER) 6.6 K/ L 3.5-10.5 (test code = 775) RED BLOOD CELL COUNT (BEAKER) 2.43 M/ L 3.93-5.22 L (test code = 761) HEMOGLOBIN (BEAKER) (test code = 7.4 GM/DL 11.2-15.7 L 410) HEMATOCRIT (BEAKER) (test code = 24.4 % 34.1-44.9 L 411) MEAN CORPUSCULAR VOLUME (BEAKER) 100.4 fL 79.4-94.8 H (test code = 753) MEAN CORPUSCULAR HEMOGLOBIN 30.5 pg 25.6-32.2 (BEAKER) (test code = 751) MEAN CORPUSCULAR HEMOGLOBIN CONC 30.3 GM/DL 32.2-35.5 L (BEAKER) (test code = 752) RED CELL DISTRIBUTION WIDTH 15.4 % 11.7-14.4 H (BEAKER) (test code = 412) PLATELET COUNT (BEAKER) (test 171 K/CU MM 150-450 code = 756) MEAN PLATELET VOLUME (BEAKER) 10.2 fL 9.4-12.3 (test code = 754) NUCLEATED RED BLOOD CELLS 0 /100 WBC 0-0 (BEAKER) (test code = 413) NEUTROPHILS RELATIVE PERCENT 72 % (BEAKER) (test code = 429) LYMPHOCYTES RELATIVE PERCENT 17 % (BEAKER) (test code = 430) MONOCYTES RELATIVE PERCENT 6 % (BEAKER) (test code = 431) EOSINOPHILS RELATIVE PERCENT 5 % (BEAKER) (test code = 432) BASOPHILS RELATIVE PERCENT 0 % (BEAKER) (test code = 437) NEUTROPHILS ABSOLUTE COUNT 4.71 K/ L 1.56-6.13 (BEAKER) (test code = 670) LYMPHOCYTES ABSOLUTE COUNT 1.08 K/ L 1.18-3.74 L (BEAKER) (test code = 414) MONOCYTES ABSOLUTE COUNT (BEAKER) 0.42 K/ L 0.24-0.36 H (test code = 415) EOSINOPHILS ABSOLUTE COUNT 0.30 K/ L 0.04-0.36 (BEAKER) (test code = 416) BASOPHILS ABSOLUTE COUNT (BEAKER) 0.02 K/ L 0.01-0.08 (test code = 417) IMMATURE GRANULOCYTES-RELATIVE 0 % 0-1 PERCENT (BEAKER) (test code = 2801) [id number] 04:27:00 Test Item Value Reference Range Interpretation Comments RPR SCREEN (BEAKER) (test code = Nonreactive Nonreactive 420) POCT-GLUCOSE [id number] 22:54:00 Test Item Value Reference Range Interpretation Comments POC-GLUCOSE METER 94 mg/dL 70-110 : TESTED A T [facility] 6720 (BEAKER) (test code = [facility] [place], 1538) [id number]: Administrator Health Care Facility/Techni dax ID = [id number] for JACKY CAMACHO POCT-GLUCOSE [id number] 18:10:00 Test Item Value Reference Range Interpretation Comments POC-GLUCOSE METER 108 mg/dL 70-110 : TESTED A T [facility] 6720 (BEAKER) (test code = [facility] [place], 1538) [id number]: Administrator Health Care Facility/Techni dax ID = [id number] for JULISSA KRISHNA MR, BRAIN, WITHOUT [id number] 16:05:00FINAL REPORT MR, BRAIN, WITHOUT CONTRAST INDICATION: [...] Globes are intact. Calvarium \\T\\ scalp: Unremarkable. IMPRESSION:No acute infarct or intracranial hemorrhage. Generalized parenchymal volume loss and chronic microvascular changes, commensurate with age. Signed: [facility] Verified Date/Time: 02/17/2019 16:05:48 -GLUCOSE [id number] 12:03:00 Test Item Value Reference Range Interpretation Comments POC-GLUCOSE METER 145 mg/dL 70-110 H : Notified RN/MD: (BEAKER) (test code = TESTED AT [facility] 67 1538) [facility], [id number]: Administrator Health Care Facility/Techni dax ID = [id number] for JULISSA KRISHNA URINALYSIS W/ REFLEX URINE [id number] 11:54:00 Test Item Value Reference Range Interpretation Comments COLOR (BEAKER) (test code = 470) Yellow CLARITY (BEAKER) (test code = 469) Hazy SPECIFIC GRAVITY UA (BEAKER) (test 1.011 1.001-1.035 code = 468) PH UA (BEAKER) (test code = 467) 8.5 5.0-8.0 H PROTEIN UA (BEAKER) (test code = 300 mg/dL Negative A 464) GLUCOSE UA (BEAKER) (test code = Negative Negative 365) KETONES UA (BEAKER) (test code = Negative Negative 371) BILIRUBIN UA (BEAKER) (test code = Negative Negative 462) BLOOD UA (BEAKER) (test code = 461) Trace Negative A NITRITE UA (BEAKER) (test code = Positive Negative A 465) LEUKOCYTE ESTERASE UA (BEAKER) Large Negative A (test code = 466) UROBILINOGEN UA (BEAKER) (test code 0.2 mg/dL 0.2-1.0 = 463) RBC UA (BEAKER) (test code = 519) 9 /HPF WBC UA (BEAKER) (test code = 520) 24 /HPF BACTERIA (BEAKER) (test code = 517) Moderate MUCUS (BEAKER) (test code = 1574) Many SQUAMOUS EPITHELIAL (BEAKER) (test 50 /HPF code = 516) SOURCE(BEAKER) (test code = 2795) VITAMIN B12 AND [id number] 09:50:00 Test Item Value Reference Range Interpretation Comments VITAMIN B12 (BEAKER) (test code = > pg/mL 213-816 H 774) FOLATE (BEAKER) (test code = 362) 16.5 ng/mL >=7.0 HEMOGLOBIN [id number] 09:03:00 Test Item Value Reference Range Interpretation Comments HEMOGLOBIN A1C (BEAKER) (test code = 4.3 % 4.3-6.1 368) HEMOGLOBIN [id number] 06:22:00 Test Item Value Reference Range Interpretation Comments HEMOGLOBIN A1C (BEAKER) (test code = 4.3 % 4.3-6.1 368) COMPREHENSIVE METABOLIC [id number] 05:42:00 Test Item Value Reference Range Interpretation Comments TOTAL PROTEIN 6.3 gm/dL 6.0-8.3 (BEAKER) (test code = 770) ALBUMIN (BEAKER) 3.2 g/dL 3.5-5.0 L (test code = 1145) ALKALINE PHOSPHATASE 96 U/L 40-150 (BEAKER) (test code = 346) BILIRUBIN TOTAL 0.7 mg/dL 0.2-1.2 (BEAKER) (test code = 377) SODIUM (BEAKER) (test 139 meq/L 136-145 code = 381) POTASSIUM (BEAKER) 4.3 meq/L 3.5-5.1 (test code = 379) CHLORIDE (BEAKER) 102 meq/L 98-107 (test code = 382) CO2 (BEAKER) (test 29 meq/L 22-29 code = 355) BLOOD UREA NITROGEN 11 mg/dL 7-21 (BEAKER) (test code = 354) CREATININE (BEAKER) 3.16 mg/dL 0.57-1.25 H (test code = 358) GLUCOSE RANDOM 79 mg/dL 70-105 (BEAKER) (test code = 652) CALCIUM (BEAKER) 8.9 mg/dL 8.4-10.2 (test code = 697) AST (SGOT) (BEAKER) 33 U/L 5-34 (test code = 353) ALT (SGPT) (BEAKER) 19 U/L 6-55 (test code = 347) EGFR (BEAKER) (test 17 mL/min/1.73 ESTIMA MEMO GFR IS code = 1092) sq m NOT ACCURATE CREATININE CLEARANCE IN PREDICTING GLOMERULAR FILTRATION RATE . ESTIMATED GFR I S NOT APPLICABLE FOR DIALYSIS PATIEN TS. FastingLIPID [id number] 05:36:00 Test Item Value Reference Range Interpretation Comments TRIGLYCERIDES (BEAKER) (test code = 61 mg/dL 540) CHOLESTEROL (BEAKER) (test code = 104 mg/dL 631) HDL CHOLESTEROL (BEAKER) (test code 56 mg/dL = 976) LDL CHOLESTEROL CALCULATED (BEAKER) 36 mg/dL (test code = 633) Triglyceride Reference Range: Low Risk <150 Borderline 150-199 High Risk 200-499 Very High Risk >=500Cholesterol Reference Range: Low Risk <200 Borderline 200-239 High Risk >240HDL Cholesterol Reference Range: Low Risk >=60 High Risk <40LDL Cholesterol Reference Range: Optimal <100 Near Optimal 100-129 Borderline 130-159 High 160-189 Very High >=190 FastingCBC W/PLT COUNT & AUTO [id number] 05:04:00 Test Item Value Reference Range Interpretation Comments WHITE BLOOD CELL COUNT (BEAKER) 7.6 K/ L 3.5-10.5 (test code = 775) RED BLOOD CELL COUNT (BEAKER) 2.42 M/ L 3.93-5.22 L (test code = 761) HEMOGLOBIN (BEAKER) (test code = 7.6 GM/DL 11.2-15.7 L 410) HEMATOCRIT (BEAKER) (test code = 24.5 % 34.1-44.9 L 411) MEAN CORPUSCULAR VOLUME (BEAKER) 101.2 fL 79.4-94.8 H (test code = 753) MEAN CORPUSCULAR HEMOGLOBIN 31.4 pg 25.6-32.2 (BEAKER) (test code = 751) MEAN CORPUSCULAR HEMOGLOBIN CONC 31.0 GM/DL 32.2-35.5 L (BEAKER) (test code = 752) RED CELL DISTRIBUTION WIDTH 15.5 % 11.7-14.4 H (BEAKER) (test code = 412) PLATELET COUNT (BEAKER) (test 172 K/CU MM 150-450 code = 756) MEAN PLATELET VOLUME (BEAKER) 10.3 fL 9.4-12.3 (test code = 754) NUCLEATED RED BLOOD CELLS 0 /100 WBC 0-0 (BEAKER) (test code = 413) NEUTROPHILS RELATIVE PERCENT 82 % (BEAKER) (test code = 429) LYMPHOCYTES RELATIVE PERCENT 11 % (BEAKER) (test code = 430) MONOCYTES RELATIVE PERCENT 5 % (BEAKER) (test code = 431) EOSINOPHILS RELATIVE PERCENT 2 % (BEAKER) (test code = 432) BASOPHILS RELATIVE PERCENT 1 % (BEAKER) (test code = 437) NEUTROPHILS ABSOLUTE COUNT 6.16 K/ L 1.56-6.13 H (BEAKER) (test code = 670) LYMPHOCYTES ABSOLUTE COUNT 0.80 K/ L 1.18-3.74 L (BEAKER) (test code = 414) MONOCYTES ABSOLUTE COUNT (BEAKER) 0.40 K/ L 0.24-0.36 H (test code = 415) EOSINOPHILS ABSOLUTE COUNT 0.13 K/ L 0.04-0.36 (BEAKER) (test code = 416) BASOPHILS ABSOLUTE COUNT (BEAKER) 0.04 K/ L 0.01-0.08 (test code = 417) IMMATURE GRANULOCYTES-RELATIVE 0 % 0-1 PERCENT (BEAKER) (test code = 2801) POCT-GLUCOSE [id number] 00:21:00 Test Item Value Reference Range Interpretation Comments POC-GLUCOSE METER 92 mg/dL 70-110 : TESTED A T [facility] 6720 (BEAKER) (test code = [facility] [place], 1538) [id number]: Administrator Health Care Facility/Techni dax ID = [id number] for Kirstie Guajardo HEPATITIS B SURFACE [id number] 20:43:00 Test Item Value Reference Range Interpretation Comments HEPATITIS B SURFACE ANTIGEN (2) Nonreactive Nonreactive (BEAKER) (test code = 2585) HEPATITIS C [id number] 20:43:00 Test Item Value Reference Range Interpretation Comments HEPATITIS C ANTIBODY (BEAKER) Nonreactive Nonreactive (test code = 367) VITAMIN [id number] 19:57:00 Test Item Value Reference Range Interpretation Comments VITAMIN B12 (BEAKER) (test code = > pg/mL 213-816 H 774) [id number] 19:45:00 Test Item Value Reference Range Interpretation Comments THYROID STIMULATING HORMONE 1.78 uIU/mL 0.35-4.94 (BEAKER) (test code = 772) TROPONIN [id number] 19:27:00 Test Item Value Reference Range Interpretation Comments TROPONIN I (BEAKER) (test code = 0.04 ng/mL 0.00-0.03 H 397) Troponin I (TnI) levels must be interpreted [...] acute neurological disease, and persistent tachyarrhythmia.COMPREHENSIVE METABOLIC [id number] 19:21:00 Test Item Value Reference Range Interpretation Comments TOTAL PROTEIN 6.4 gm/dL 6.0-8.3 (BEAKER) (test code = 770) ALBUMIN (BEAKER) 3.2 g/dL 3.5-5.0 L (test code = 1145) ALKALINE PHOSPHATASE 101 U/L 40-150 (BEAKER) (test code = 346) BILIRUBIN TOTAL 0.7 mg/dL 0.2-1.2 (BEAKER) (test code = 377) SODIUM (BEAKER) (test 136 meq/L 136-145 code = 381) POTASSIUM (BEAKER) 3.9 meq/L 3.5-5.1 (test code = 379) CHLORIDE (BEAKER) 96 meq/L 98-107 L (test code = 382) CO2 (BEAKER) (test 29 meq/L 22-29 code = 355) BLOOD UREA NITROGEN 20 mg/dL 7-21 (BEAKER) (test code = 354) CREATININE (BEAKER) 4.91 mg/dL 0.57-1.25 H (test code = 358) GLUCOSE RANDOM 116 mg/dL 70-105 H (BEAKER) (test code = 652) CALCIUM (BEAKER) 8.3 mg/dL 8.4-10.2 L (test code = 697) AST (SGOT) (BEAKER) 29 U/L 5-34 (test code = 353) ALT (SGPT) (BEAKER) 18 U/L 6-55 (test code = 347) EGFR (BEAKER) (test 10 mL/min/1.73 ESTIMA MEMO GFR IS code = 1092) sq m NOT ACCURATE CREATININE CLEARANCE IN PREDICTING GLOMERULAR FILTRATION RATE . ESTIMATED GFR I S NOT APPLICABLE FOR DIALYSIS PATIEN TS. PROTHROMBIN [id number] 19:10:00 Test Item Value Reference Range Interpretation Comments PROTIME (BEAKER) (test code = 16.0 seconds 11.9-14.2 H 759) INR (BEAKER) (test code = 370) 1.4 <=5.9 Effective 08/16/2018: PT Reference Range ChangeNew: 11.9-14.2 Previous: 11.7- 14.7RECOMMENDED COUMADIN/WARFARIN INR THERAPY RANGESSTANDARD DOSE: 2.0-3.0 Includes: PROPHYLAXIS for venous thrombosis, systemic embolization; TREATMENT for venous thrombosis and/or pulmonary embolus.HIGH RISK: Target INR is2.5-3.5 for patients wiht mechanical heart valves.CBC W/PLT COUNT & AUTO [id number] 19:02:00 Test Item Value Reference Range Interpretation Comments WHITE BLOOD CELL COUNT (BEAKER) 9.1 K/ L 3.5-10.5 (test code = 775) RED BLOOD CELL COUNT (BEAKER) 2.50 M/ L 3.93-5.22 L (test code = 761) HEMOGLOBIN (BEAKER) (test code = 7.7 GM/DL 11.2-15.7 L 410) HEMATOCRIT (BEAKER) (test code = 25.1 % 34.1-44.9 L 411) MEAN CORPUSCULAR VOLUME (BEAKER) 100.4 fL 79.4-94.8 H (test code = 753) MEAN CORPUSCULAR HEMOGLOBIN 30.8 pg 25.6-32.2 (BEAKER) (test code = 751) MEAN CORPUSCULAR HEMOGLOBIN CONC 30.7 GM/DL 32.2-35.5 L (BEAKER) (test code = 752) RED CELL DISTRIBUTION WIDTH 15.4 % 11.7-14.4 H (BEAKER) (test code = 412) PLATELET COUNT (BEAKER) (test 155 K/CU MM 150-450 code = 756) MEAN PLATELET VOLUME (BEAKER) 10.1 fL 9.4-12.3 (test code = 754) NUCLEATED RED BLOOD CELLS 0 /100 WBC 0-0 (BEAKER) (test code = 413) NEUTROPHILS RELATIVE PERCENT 88 % (BEAKER) (test code = 429) LYMPHOCYTES RELATIVE PERCENT 6 % (BEAKER) (test code = 430) MONOCYTES RELATIVE PERCENT 5 % (BEAKER) (test code = 431) EOSINOPHILS RELATIVE PERCENT 0 % (BEAKER) (test code = 432) BASOPHILS RELATIVE PERCENT 0 % (BEAKER) (test code = 437) NEUTROPHILS ABSOLUTE COUNT 8.00 K/ L 1.56-6.13 H (BEAKER) (test code = 670) LYMPHOCYTES ABSOLUTE COUNT 0.57 K/ L 1.18-3.74 L (BEAKER) (test code = 414) MONOCYTES ABSOLUTE COUNT (BEAKER) 0.43 K/ L 0.24-0.36 H (test code = 415) EOSINOPHILS ABSOLUTE COUNT 0.02 K/ L 0.04-0.36 L (BEAKER) (test code = 416) BASOPHILS ABSOLUTE COUNT (BEAKER) 0.04 K/ L 0.01-0.08 (test code = 417) IMMATURE GRANULOCYTES-RELATIVE 1 % 0-1 PERCENT (BEAKER) (test code = 2801) RAD, CHEST, 1 VIEW, NON [id number] 18:34:00Reason for exam:->Shortness of breathShould this be performed at the bedside?->YesFINAL REPORT TECHNIQUE: Frontal view of the chest. INDICATION: 88-year-old woman with shortness of breath. COMPARISON: None. FINDINGS: LINES/TUBES: None. LUNGS: The lungs are well inflated. Bilateral airspace opacities. PLEURA: Suspected small left pleural effusion. No pneumothorax. HEART AND MEDIASTINUM: Prominent cardiac silhouette. SOFT TISSUES AND BONES: Unremarkable. IMPRESSION:Bilateral airspace opacities, likely pulmonary edema. Less likely differential consideration includes multifocal pneumonia. Prominent cardiac silhouette. Signed: Priscila Jung MDReport Verified Date/Time: 02/16/2019 18:34:17 Reading Location: [facility] B1 [id number] Consult Reading Room
[2019-08-04 20:43] LABS: Absolute Lymphocytes (CBC) 0.7 K/uL (0.7-4.9); Basophils % 1.2 % (0-1.3); Hematocrit 27.6 % (36.0-45.0); Lymphocytes % 14.6 % (15.3-44.8); MPV 8.4 fL (7.6-11.3); RBC Red Blood Cell Count 2.67 M/uL (3.86-4.86)
[2019-08-04 20:44] LABS: Protime INR 1.22
[2019-08-04 20:50] LABS: ALT/SGPT 15 U/L (12-78); AST/SGOT 15 U/L (15-37); Albumin 2.8 g/dL (3.4-5.0); Alkaline Phosphatase 92 U/L (45-117); BUN Blood Urea Nitrogen 19 mg/dL (7-18); Bicarbonate 31 mmol/L (21-32); Bilirubin Direct 0.3 mg/dL (0-0.2); Bilirubin Total 0.7 mg/dL (0.2-1.0); Glucose Level 98 mg/dL (74-106); Magnesium 2.1 mg/dL (1.8-2.4); NT PRO-BNP 20983 pg/mL (<450); Protein, Total 6.8 g/dL (6.4-8.2); Sodium Level 134 mmol/L (136-145); Troponin (Emerg Dept Use Only) < 0.02 ng/mL (0.0-0.045)
--- NOTE | 2019-08-04 21:07 | RAD REPORT ---
EXAM DESCRIPTION: CT - Head Brain Wo Cont - 08/04/2019 8:33 pm CLINICAL HISTORY: PAIN COMPARISON: Head Brain Wo Cont dated 06/08/2019 TECHNIQUE: Axial 5 mm thick images of the head were obtained without IV contrast. All CT scans are performed using dose optimization technique as appropriate and may include automated exposure control or mA/KV adjustment according to patient size. FINDINGS: No intracranial hemorrhage, mass, edema or shift of mid-line structures. No acute infarcti on changes seen. No cortical edema or sulcal effacement. Moderate atrophy and chronic ischemic change s are present. Ventricles are in proportion. Arterial tree calcifications are present. Intracranial f indings are similar to the comparison. Mastoid air cells and visualized portions of the paranasal sinuses are clear. No acute bony findings. IMPRESSION: No acute CT Head finding. Atrophy and chronic ischemic change similar to comparison.
--- NOTE | 2019-08-04 21:09 | RAD REPORT ---
EXAM DESCRIPTION: RAD - Chest Single View - 08/04/2019 7:58 pm CLINICAL HISTORY: DYSPNEA COMPARISON: Portable June 07 TECHNIQUE: AP portable chest image was obtained 08/04/2019 7:58 pm . FINDINGS: Lung volumes are low. Interstitial and alveolar opacities are present in both lung dunne. Findings are worse in the left base. Costophrenic angle blunting present. Cardiomegaly and vascular engorgement are present. No measurable pleural effusion and no pneumothorax. No acute bony abnormalit y seen. No acute aortic findings suspected. IMPRESSION: Moderate CHF/volume overload pattern. Focally more prominent left base finding could indicate concurrent pneumonia.
--- NOTE | 2019-08-04 22:06 | ER ---
Nurse's Notes [facility] Name: Erendira Graham Age: 88 yrs Sex: Female : 1930 Arrival Date: 08/04/2019 Time: 18:47 Bed 17 Private MD: Diagnosis: Dyspnea;End stage renal disease-on hd m,w,f;Unspecified combined systolic (congestive) and diastolic (congestive) heart failure;Anemia, unspecified;Syncope and collapse-near Presentation: 08/03 18:51 Chief complaint: Patient states: SOB started last night, Daughter states, "she just ca1 don't feel good". Pt is on Dialysis, MWF, last session was yesterday. Coronavirus screen: Proceed with normal triage. Patient denies a cough. Patient reports shortness of breath or difficulty breathing. Patient denies measured and/or subjective temperature greater than 100.4F prior to today's visit. Patient denies travel on a cruise ship or to a country the [facility] currently lists as an affected area. Patient denies contact with known and/or suspected case of COVID-19. Ebola Screen: Patient negative for fever greater than or equal to 101.5 degrees Fahrenheit, and additional compatible Ebola Virus Disease symptoms Patient denies exposure to infectious person. Patient denies travel to an Ebola-affected area in the 21 days before illness onset. No symptoms or risks identified at this time. Initial Sepsis Screen: Does the patient meet any 2 criteria? No. Patient's initial sepsis screen is negative. Does the patient have a suspected source of infection? No. Patient's initial sepsis screen is negative. Risk Assessment: Do you want to hurt yourself or someone else? Patient reports no desire to harm self or others. Onset of symptoms was August 04, 2019. 18:51 Method Of Arrival: Wheelchair ca1 18:51 Acuity: KEKE 3 ca1 Triage Assessment: 19:30 Respiratory: Onset: The symptoms/episode began/occurred gradually, the patient has mild rr5 shortness of breath. 19:30 General: Appears in no apparent distress. uncomfortable, Behavior is calm, cooperative, rr5 appropriate for age. Historical: - Allergies: 18:54 Bactrim; ca1 18:54 Karlene; ca1 18:54 Ciprofloxacin; ca1 18:54 Demerol; ca1 18:54 Talwin; ca1 18:54 PENICILLINS; ca1 18:54 tequin; ca1 - Home Meds: 21:58 acetaminophen-codeine 300-30 mg Oral tab 1 tab as needed for Pain [Active]; aspirin 81 rr5 mg Oral TbEC 1 tab once daily [Active]; clonidine HCl 0.3 mg Oral tab 1 tab 2 times per day [Active]; DIALYVITE 800 0.8 mg Oral tab [Active]; docusate sodium 100 mg Oral tab 2 times per day [Active]; doxazosin 8 mg Oral tab twice a day [Active]; hydralazine 100 mg Oral tab 3 times per day [Active]; isosorbide mononitrate 30 mg Oral Tb24 twice a day [Active]; melatonin 5 mg Oral tab nightly [Active]; minoxidil 2.5 mg Oral tab 1 tabs 2 times per day [Active]; Plavix 75 mg Oral tab 1 tab once daily [Active]; sertraline 50 mg Oral tab 1 tab once daily [Active]; nifedipine 90 mg Oral TbER twice a day [Active]; Tums 300 mg (750 mg) Oral chew [Active]; Vitamin D Oral 5000 unit daily [Active]; - PMHx: 18:54 CHF; Diabetes - NIDDM; Dialysis; ESRD; Hypertension; ca1 - PSHx: 18:54 Hysterectomy; Cholecystectomy; ca1 - Immunization history:: Adult Immunizations up to date. - Social history:: Smoking status: Patient denies any tobacco usage or history of. Screenin:00 Abuse screen: Denies threats or abuse. Denies injuries from another. Nutritional rr5 screening: No deficits noted. Tuberculosis screening: No symptoms or risk factors identified. Fall Risk IV access (20 points). Total Paris Fall Scale indicates No Risk (0-24 pts). Assessment: 19:30 General: Appears in no apparent distress. uncomfortable, Behavior is calm, cooperative, rr5 appropriate for age. 19:30 Pain: Denies pain. Neuro: Level of Consciousness is awake, alert, obeys commands, rr5 Oriented to person, place, time, situation, Reports does not feel good. Cardiovascular: Capillary refill < 3 seconds Patient's skin is warm and dry. Dialysis shunt: in the left arm, with palpable thrill, with auscultated bruit, with no erythema, with no edema, no bleeding noted. Respiratory: Reports shortness of breath Airway is patent Respiratory effort is even, unlabored, Respiratory pattern is regular, symmetrical. GI: No signs and/or symptoms were reported involving the gastrointestinal system. : No signs and/or symptoms were reported regarding the genitourinary system. EENT: No signs and/or symptoms were reported regarding the EENT system. Derm: Skin is fragile, is thin, Skin temperature is warm. Musculoskeletal: Capillary refill < 3 seconds. 19:30 Respiratory: Breath sounds are clear. rr5 20:14 Cardiovascular: Rhythm is sinus rhythm with PVC. rr5 20:30 Reassessment: Patient appears in no apparent distress at this time. Patient is alert, rr5 oriented x 3, equal unlabored respirations, skin warm/dry/pink. awaiting for results. 21:30 Reassessment: Patient appears in no apparent distress at this time. Patient is alert, rr5 oriented x 3, equal unlabored respirations, skin warm/dry/pink. vitally stable no complaints made. awaiting for ED provider review. 22:30 Reassessment: Patient appears in no apparent distress at this time. Patient is alert, rr5 oriented x 3, equal unlabored respirations, skin warm/dry/pink. hospitalist at bedside. 23:40 Reassessment: Patient appears in no apparent distress at this time. Patient is alert, rr5 oriented x 3, equal unlabored respirations, skin warm/dry/pink. patient agreed to stay in the hospital. snacks given. Vital Signs: 18:51 BP 136 / 41; Pulse 78; Resp 20 S; Temp 97.2(TE); Pulse Ox 98% on R/A; Weight 70.31 kg ca1 (R); Height 5 ft. 5 in. (165.10 cm) (R); Pain 0/10; 20:00 BP 115 / 70; Pulse 79; Resp 17; Pulse Ox 96% ; rr5 21:00 BP 103 / 70; Pulse 74; Resp 16; Pulse Ox 95% ; rr5 22:00 BP 146 / 75; Pulse 75; Resp 16; Pulse Ox 99% on R/A; rr5 23:00 BP 169 / 79; Pulse 80; Resp 19; Temp 97.5; Pulse Ox 96% ; rr5 23:42 BP 159 / 89; Pulse 85; Resp 17; Pulse Ox 95% ; rr5 08/04 00:30 BP 163 / 85; Pulse 77; Resp 20; Pulse Ox 99% on R/A; rr5 08/03 18:51 Body Mass Index 25.79 (70.31 kg, 165.10 cm) ca1 Briana Coma Score: 08/03 19:49 Eye Response: spontaneous(4). Verbal Response: oriented(5). Motor Response: obeys madisyn commands(6). Total: 15. ED Course: 18:47 Patient arrived in ED. am2 18:53 Triage completed. ca1 18:54 Arm band placed on right wrist. ca1 19:13 Jung Morrow MD is Attending Physician. madisyn 19:30 Min Alvarez, RN is Primary Nurse. rr5 19:30 Patient has correct armband on for positive identification. Placed in gown. Bed in low rr5 position. Call light in reach. Side rails up X2. auriculotherapist on. Pulse ox on. NIBP on. 19:55 Radiology exam delayed due to pt getting IV and EKG at this time. mw3 19:58 XRAY Chest (1 view) In Process Unspecified. EDMS 20:05 EKG done, by ED staff, reviewed by Jung Morrow MD. rr5 20:20 Inserted saline lock: 22 gauge in right hand, using aseptic technique. Blood collected. rr5 20:34 CT Head Brain wo Cont In Process Unspecified. EDMS 22:02 Niels Nation is Hospitalizing Provider. [facility] 08/04 00:03 No provider procedures requiring assistance completed. Patient admitted, IV remains in rr5 place. intact, No redness/swelling at site. Administered Medications: No medications were administered Outcome: 08/03 22:05 Decision to Hospitalize by Provider. [facility] 08/04 00:03 Admitted to Med/surg accompanied by tech, room 219, with chart, Report called to che rr5 Condition: stable Instructed on the need for admit. 00:51 Patient left the ED. rr5 Signatures: Dispatcher [employer] EDJung Samaniego MD MD cha Moreno, Amanda am2 Linette Madison mw3 Min Alvarez, RN RN rr5 Yesika Ambriz RN RN ca1 Corrections: (The following items were deleted from the chart) 08/03 20:12 20:11 Radiology exam delayed due to pt getting IV and EKG at this time mw3 mw3 08/04 00:52 00:30 BP 163 / 85; Pulse 77bpm; Resp 16bpm; Pulse Ox 99% RA; rr5 rr5
--- NOTE | 2019-08-04 22:06 | EDPHYS ---
Physician Documentation [facility] Name: Erendira Graham Age: 88 yrs Sex: Female : 1930 Arrival Date: 08/04/2019 Time: 18:47 Bed 17 Private MD: ED Physician Jung Morrow HPI: 08/03 19:46 This 88 yrs old Black Female presents to ER via Wheelchair with complaints of Shortness madisyn Of Breath. 19:46 The patient has shortness of breath with light activity. Onset: The symptoms/episode madisyn began/occurred 2 day(s) ago. Duration: The symptoms are continuous, and are steadily getting worse. The patient's shortness of breath is aggravated by nothing, is alleviated by nothing. Associated signs and symptoms: Pertinent positives: non-productive cough. Severity of symptoms: At their worst the symptoms were mild in the emergency department the symptoms are unchanged. The patient has experienced similar episodes in the past, a few times. Historical: - Allergies: 18:54 Bactrim; ca1 18:54 Karlene; ca1 18:54 Ciprofloxacin; ca1 18:54 Demerol; ca1 18:54 Talwin; ca1 18:54 PENICILLINS; ca1 18:54 tequin; ca1 - Home Meds: 21:58 acetaminophen-codeine 300-30 mg Oral tab 1 tab as needed for Pain [Active]; aspirin 81 rr5 mg Oral TbEC 1 tab once daily [Active]; clonidine HCl 0.3 mg Oral tab 1 tab 2 times per day [Active]; DIALYVITE 800 0.8 mg Oral tab [Active]; docusate sodium 100 mg Oral tab 2 times per day [Active]; doxazosin 8 mg Oral tab twice a day [Active]; hydralazine 100 mg Oral tab 3 times per day [Active]; isosorbide mononitrate 30 mg Oral Tb24 twice a day [Active]; melatonin 5 mg Oral tab nightly [Active]; minoxidil 2.5 mg Oral tab 1 tabs 2 times per day [Active]; Plavix 75 mg Oral tab 1 tab once daily [Active]; sertraline 50 mg Oral tab 1 tab once daily [Active]; nifedipine 90 mg Oral TbER twice a day [Active]; Tums 300 mg (750 mg) Oral chew [Active]; Vitamin D Oral 5000 unit daily [Active]; - PMHx: 18:54 CHF; Diabetes - NIDDM; Dialysis; ESRD; Hypertension; ca1 - PSHx: 18:54 Hysterectomy; Cholecystectomy; ca1 - Immunization history:: Adult Immunizations up to date. - Social history:: Smoking status: Patient denies any tobacco usage or history of. ROS: 19:47 Constitutional: Negative for fever, chills, and weight loss, Eyes: Negative for injury, madisyn pain, redness, and discharge, ENT: Negative for injury, pain, and discharge, Neck: Negative for injury, pain, and swelling, Cardiovascular: Negative for chest pain, palpitations, and edema, Abdomen/GI: Negative for abdominal pain, nausea, vomiting, diarrhea, and constipation, Back: Negative for injury and pain, : Negative for injury, bleeding, discharge, and swelling, MS/Extremity: Negative for injury and deformity, Skin: Negative for injury, rash, and discoloration, Psych: Negative for depression, anxiety, suicide ideation, homicidal ideation, and hallucinations, Allergy/Immunology: Negative for hives, rash, and allergies, Endocrine: Negative for neck swelling, polydipsia, polyuria, polyphagia, and marked weight changes, Hematologic/Lymphatic: Negative for swollen nodes, abnormal bleeding, and unusual bruising. 19:47 Respiratory: Positive for cough, shortness of breath. 19:47 Neuro: Positive for dizziness, headache, near syncope, weakness. Exam: 19:47 Constitutional: This is a well developed, well nourished patient who is awake, alert, madisyn and in no acute distress. Head/Face: Normocephalic, atraumatic. Eyes: Pupils equal round and reactive to light, extra-ocular motions intact. Lids and lashes normal. Conjunctiva and sclera are non-icteric and not injected. Cornea within normal limits. Periorbital areas with no swelling, redness, or edema. ENT: Nares patent. No nasal discharge, no septal abnormalities noted. Tympanic membranes are normal and external auditory canals are clear. Oropharynx with no redness, swelling, or masses, exudates, or evidence of obstruction, uvula midline. Mucous membranes moist. Neck: Trachea midline, no thyromegaly or masses palpated, and no cervical lymphadenopathy. Supple, full range of motion without nuchal rigidity, or vertebral point tenderness. No Meningismus. Chest/axilla: Normal chest wall appearance and motion. Nontender with no deformity. No lesions are appreciated. Cardiovascular: Regular rate and rhythm with a normal S1 and S2. No gallops, murmurs, or rubs. Normal PMI, no JVD. No pulse deficits. Respiratory: Lungs have equal breath sounds bilaterally, clear to auscultation and percussion. No rales, rhonchi or wheezes noted. No increased work of breathing, no retractions or nasal flaring. Abdomen/GI: Soft, non-tender, with normal bowel sounds. No distension or tympany. No guarding or rebound. No evidence of tenderness throughout. Back: No spinal tenderness. No costovertebral tenderness. Full range of motion. Skin: Warm, dry with normal turgor. Normal color with no rashes, no lesions, and no evidence of cellulitis. MS/ Extremity: Pulses equal, no cyanosis. Neurovascular intact. Full, normal range of motion. Neuro: Awake and alert, GCS 15, oriented to person, place, time, and situation. Cranial nerves II-XII grossly intact. Motor strength 5/5 in all extremities. Sensory grossly intact. Cerebellar exam normal. Normal gait. Psych: Awake, alert, with orientation to person, place and time. Behavior, mood, and affect are within normal limits. 19:47 Musculoskeletal/extremity: Extremities: all appear grossly normal, with no appreciated pain with palpation, ROM: intact in all extremities, full active range of motion, full passive range of motion, Circulation is intact in all extremities. Sensation intact. Compartment Syndrome exam of affected extremity: is normal. DVT Exam: No signs of deep vein thrombosis. no pain, no swelling, no tenderness, negative Homans' sign noted on exam, no appreciated bluish discoloration, no erythema, no increased warmth. 20:18 ECG was reviewed by the Attending Physician. madisyn Vital Signs: 18:51 BP 136 / 41; Pulse 78; Resp 20 S; Temp 97.2(TE); Pulse Ox 98% on R/A; Weight 70.31 kg ca1 (R); Height 5 ft. 5 in. (165.10 cm) (R); Pain 0/10; 20:00 BP 115 / 70; Pulse 79; Resp 17; Pulse Ox 96% ; rr5 21:00 BP 103 / 70; Pulse 74; Resp 16; Pulse Ox 95% ; rr5 22:00 BP 146 / 75; Pulse 75; Resp 16; Pulse Ox 99% on R/A; rr5 23:00 BP 169 / 79; Pulse 80; Resp 19; Temp 97.5; Pulse Ox 96% ; rr5 23:42 BP 159 / 89; Pulse 85; Resp 17; Pulse Ox 95% ; rr5 08/04 00:30 BP 163 / 85; Pulse 77; Resp 20; Pulse Ox 99% on R/A; rr5 08/03 18:51 Body Mass Index 25.79 (70.31 kg, 165.10 cm) ca1 Briana Coma Score: 08/03 19:49 Eye Response: spontaneous(4). Verbal Response: oriented(5). Motor Response: obeys madisyn commands(6). Total: 15. MDM: 19:14 Patient medically screened. madisyn 19:49 Differential diagnosis: Anemia CHF exacerbation, hypoglycemia, hyponatremia, sinusitis, madisyn subdural hematoma, pneumonia, pulmonary edema, Unstable Angina. Differential Diagnosis: cardiac arrhythmia, cerebrovascular accident, drug effect, GI bleed, idiopathic syncope, transient ischemic attack, vasovagal episode. Data reviewed: vital signs, nurses notes, lab test result(s), EKG, radiologic studies, CT scan, plain films. 22:05 Immunization status: Pneumococcal vaccine: Influenza vaccine: Data interpreted: Cardiac madisyn monitor: rate is 74 beats/min, rhythm is normal sinus rhythm, Pulse oximetry: on room air is 95 %. Test interpretation: by ED physician or midlevel provider: ECG, plain radiologic studies. Counseling: I had a detailed discussion with the patient and/or guardian regarding: the historical points, exam findings, and any diagnostic results supporting the discharge/admit diagnosis, lab results, radiology results, the need for further work-up and treatment in the hospital. ED course: dw dr nation, will admit for volume overload, chf and consult dr schofield[facility] group. 08/03 19:40 Order name: Basic Metabolic Panel; Complete Time: 21:51 madisyn 08/03 19:40 Order name: CBC with Diff; Complete Time: 21:51 [facility] 08/03 19:40 Order name: LFT's; Complete Time: 21:51 [facility] 08/03 19:40 Order name: Magnesium; Complete Time: 21:51 [facility] 08/03 19:40 Order name: NT PRO-BNP; Complete Time: 21:51 [facility] 08/03 19:40 Order name: PT-INR; Complete Time: 21:51 [facility] 08/03 19:40 Order name: Troponin (emerg Dept Use Only); Complete Time: 21:51 [facility] 08/03 19:40 Order name: XRAY Chest (1 view); Complete Time: 21:51 [facility] 08/03 19:40 Order name: EKG; Complete Time: 19:41 [facility] 08/03 19:40 Order name: Cardiac monitoring; Complete Time: 20:35 [facility] 08/03 19:40 Order name: EKG - Nurse/Tech; Complete Time: 20:35 [facility] 08/03 19:40 Order name: IV Saline Lock; Complete Time: 20:35 [facility] 08/03 19:40 Order name: Labs collected and sent; Complete Time: 20:35 [facility] 08/03 19:40 Order name: CT Head Brain wo Cont; Complete Time: 21:51 [facility] 08/03 19:40 Order name: O2 Per Protocol; Complete Time: 20:35 [facility] 08/03 19:40 Order name: O2 Sat Monitoring; Complete Time: 20:35 [facility] EC:18 Rate is 86 beats/min. Rhythm is regular. QRS [place] is Normal. MI interval is normal. QRS madisyn interval is normal. QT interval is normal. No Q waves. T waves are Normal. No ST changes noted. Clinical impression: NSR w/ Non-specific ST/T Changes and No evidence of ischemia. Interpreted by me. Reviewed by me. Administered Medications: No medications were administered Disposition: 08/04/19 22:05 Hospitalization ordered by Niels Nation for Inpatient Admission. Preliminary diagnosis are Dyspnea, End stage renal disease - on hd m,w,f, Unspecified combined systolic (congestive) and diastolic (congestive) heart failure, Anemia, unspecified, Syncope and collapse - near. - Bed requested for Telemetry/MedSurg (Inpatient). - Status is Inpatient Admission. rr5 - Condition is Fair. - Problem is new. - Symptoms have improved. Signatures: Dispatcher [employer] EDMS Jung Morrow MD MD cha Garcia, Cindy RN Min Cooper RN RN rr5 Yesika Ambriz RN RN ca1 Corrections: (The following items were deleted from the chart) 23:39 22:05 Hospitalization Ordered by Niels Nation for Inpatient Admission. Preliminary cg diagnosis is Dyspnea; End stage renal disease - on hd m,w,f; Unspecified combined systolic (congestive) and diastolic (congestive) heart failure; Anemia, unspecified; Syncope and collapse - near. Bed requested for Telemetry/MedSurg (Inpatient). Status is Inpatient Admission. Condition is Fair. Problem is new. Symptoms have improved. madisyn 08/04 00:51 08/03 23:39 08/04/2019 22:05 Hospitalization Ordered by Niels Nation for Inpatient rr5 Admission. Preliminary diagnosis is Dyspnea; End stage renal disease - on hd m,w,f; Unspecified combined systolic (congestive) and diastolic (congestive) heart failure; Anemia, unspecified; Syncope and collapse - near. Bed requested for Telemetry/MedSurg (Inpatient). Status is Inpatient Admission. Condition is Fair. Problem is new. Symptoms have improved. cg
--- NOTE | 2019-08-04 23:15 | P.HP ---
Certification for Inpatient Patient admitted to: Observation With expected LOS: <2 Midnights Practitioner: I am a practitioner with admitting privileges, knowledge of patient current condition, hospital course, and medical plan of care. Services: Services provided to patient in accordance with Admission requirements found in Title 42 Section 412.3 of the Code of Federal Regulations Patient History Date of Service: 08/04/19 Reason for admission: Shortness of breath History of Present Illness: 80-year-old woman with a history of end-stage renal disease on dialysis presented emergency department with a complaint of shortness of breath of onset this morning. Patient is on hemodialysis on Tuesday and Tuesday and complete 3 and 1/2 hours each session. She was dialysed yesterday. Patient denied any chest pain or palpitation. She also denied any fever. Her chest x- ray in the ED suggests pulmonary vascular congestion. Patient is admitted for further management of pulmonary edema. Allergies ciprofloxacin Allergy (Verified 02/15/19 22:51) Rash fexofenadine Allergy (Verified 02/15/19 22:51) Rash gatifloxacin Allergy (Verified 02/15/19 22:51) Hives/Rash meperidine [From Demerol] Allergy (Verified 08/05/19 00:13) Nausea/Vomiting Penicillins Allergy (Verified 02/15/19 22:51) Hives/Rash pentazocine [From Talwin] Allergy (Verified 02/15/19 22:51) Unknown sulfamethoxazole [From Bactrim] Allergy (Verified 08/05/19 00:13) Hives trimethoprim [From Bactrim] Allergy (Verified 08/05/19 00:13) Hives Home Medications: Unobtainable 08/05/19 - Past Medical/Surgical History Diabetic: Yes -: DEPRESSION -: CHRONIC KIDNEY DISEASE ON HD -: CAD -: MALIGNANT HYPERTENSION -: HYPERLIPIDEMIA -: AORTIC STENOSIS -: RENAL ARTERY STENOSIS -: DM -: CHF -: ESRD -: STENT PLACEMENT -: gall bladder removed -: R kidney stent placement -: cataract bilateral repair -: left carotid artery repair. -: left AVF -: hysterectomy -: appendectomy - Family History Sister -: Heart disease Brother -: Heart disease, Cancer - Social History Alcohol use: No CD- Drugs: Yes Caffeine use: Yes Review of Systems Other: Except as documented, all other systems reviewed and negative. Physical Examination - Physical Exam General: Alert, In no apparent distress, Oriented x3 HEENT: Mucous membr. moist/pink, Sclerae nonicteric Neck: Supple, JVD not distended Respiratory: Diminished, Crackles/rales (Bilateral) Cardiovascular: No edema, Regular rate/rhythm, Normal S1 S2, No murmurs Capillary refill: <2 Seconds Gastrointestinal: Normal bowel sounds, Soft and benign, Non-distended, No tenderness Integumentary: No rashes Neurological: Normal speech, Normal strength at 5/5 x4 extr, Cranial nerves 3-12 intact - Studies Laboratory Data (last 24 hrs) 08/04/19 20:20: PT 14.3 H, INR 1.22 08/04/19 20:20: WBC 4.8, Hgb 9.2 L, Hct 27.6 L, Plt Count 190 08/04/19 20:20: Sodium 134 L, Potassium 4.0, BUN 19 H, Creatinine 4.05 H, Glucose 98, Magnesium 2.1, Total Bilirubin 0.7, AST 15, ALT 15, Alkaline Phosphatase 92 Assessment and Plan - Problems (Diagnosis) (1) Pulmonary edema Current Visit: Yes Status: Acute (2) ESRD (end stage renal disease) Current Visit: No Status: Acute (3) HTN (hypertension) Current Visit: No Status: Chronic Qualifiers: (4) Diabetes mellitus type 2 in nonobese Current Visit: Yes Status: Acute (5) Anemia in chronic kidney disease Current Visit: Yes Status: Acute - Plan Place under observation. Restrict fluid Nephrology consult for hemodialysis. Continue home antihypertensives. Insulin sliding scale for glucose management. - Advance Directives Does patient have a Living Will: Yes Does patient have a Durable POA for Healthcare: Yes - Code Status/Comfort Care Code Status Assessed: Yes Code Status: Full Code
[2019-08-05] MEDS ORDERED: ONDANSETRON 4 MG/2 ML VIAL IV PRN (00:27)
[2019-08-05] MEDS ORDERED: ALBUTEROL 2.5 MG/3 ML NEB SOL NEB PRN (00:27)
[2019-08-05 00:50] VITALS: BMI 26.7
[2019-08-05] MEDS: ACETAMINOPHEN 500 MG TAB PO PRN ×3 (01:52→20:25)
[2019-08-05] MEDS: HYDRALAZINE HCL 20 MG/ML VIAL IV PRN (05:07)
[2019-08-05 06:13] LABS: Absolute Lymphocytes (CBC) 0.8 K/uL (0.7-4.9); Basophils % 0.5 % (0-1.3); Hematocrit 26.6 % (36.0-45.0); MPV 8.5 fL (7.6-11.3)
[2019-08-05 06:21] LABS: Phosphorus 3.3 mg/dL (2.5-4.9); Potassium 3.9 mmol/L (3.5-5.1)
--- NOTE | 2019-08-05 07:11 | EKG ---
Test Date: 2019-08-04 Test Time: 20:14:20 Tipple Mechanic: GEETA MEASUREMENT RESULTS: Intervals: Rate: 86 WV: 168 QRSD: 82 QT: 382 QTc: 457 [place]: P: WV: 168 QRS: 14 T: 0 INTERPRETIVE STATEMENTS: Sinus rhythm with premature atrial complexes Septal infarct, age undetermined Abnormal ECG Compared to ECG 06/08/2019 17:29:10 First degree AV block no longer present Aberrant conduction of supraventricular beat(s) no longer present Myocardial infarct finding still present Electronically Signed On 08-05-19 07:10:46 CDT by Juan Pablo Leroy
[2019-08-05] MEDS: INSULIN -REGULAR HUMAN 50 UNIT/0.5 ML ML SQ SCH ×4 (07:30→21:00)
[2019-08-05] MEDS ORDERED: FUROSEMIDE 40 MG/4 ML VIAL IV ONE ×2 (08:34→14:00)
[2019-08-05] MEDS: NIFEDIPINE XL 90 MG TABLET PO SCH ×2 (09:03→20:24)
[2019-08-05] MEDS: ISOSORBIDE MONO SR 30 MG TAB PO SCH (09:03)
[2019-08-05] MEDS: HEPARIN 5000 UNIT/ML 1 ML VIAL SQ SCH ×2 (09:04→20:24)
--- NOTE | 2019-08-05 11:48 | P.PN ---
Date of Service: 08/05/19 patient seen/examined. we were consulted to supervise dialysis. patient known to me from out patient dialysis. clinically doing much better currently. alert/oriented. talking comfortably in full sentences. not on any oxygen and o2 sats are ok. labs with potassium ok. bicarb ok. bp now significantly better in 150 range after her home bp meds given. not clear why bp was elevated on arrival. she is at her baseline self. cxray reports pulmonary congestion. on exam she has decreased breath sounds at very bases but air entry is good and she is breathing comfortably off any oxygen currently. vs stable. bp improved lungs: cta with decreased breath sounds at very basis cvs: regular abd soft/nt ext trace edema labs reviewed a/p: esrd/htn/mild volume overload but clinically stable. bp improved has had some uo after lasix given. she is alert and talking and breathing comfortably. Repeat lasix 80mg iv at around 2 pm. monitor bp and plan for dialysis tomorrow morning. plan reviewed with hosptitalist and discussed with daughter, Robina as well.
--- NOTE | 2019-08-05 12:28 | P.PN ---
Subjective Date of Service: 08/05/19 Chief Complaint: Shortness of breath Subjective: Other (Patient is feeling better. Less dyspneic. She deneis any headaches, dizziness or palpitations.) Physical Examination - Vital Signs Temperature: 98.3 F Blood Pressure: 151/72 Pulse: 77 Respirations: 20 Pulse Ox (%): 95 - Physical Exam General: Cooperative, Other (lethargic) HEENT: Atraumatic, Normocephalic, Other (periorbital edema), EOMI Neck: JVD distended Respiratory: Diminished, Crackles/rales Cardiovascular: No edema, Regular rate/rhythm, Normal S1 S2, Other (Left forearm HD catheter. ) Gastrointestinal: Normal bowel sounds, Soft and benign, Non-distended Musculoskeletal: No clubbing, No swelling, No contractures, No erythema, No tenderness, No warmth Integumentary: No rashes, No breakdown, No significant lesion, No tenderness/swelling, No erythema, No warmth, No cyanosis Neurological: Normal speech, Sensation intact, Normal affect - Studies Laboratory Data (last 24 hrs) 08/04/19 20:20: PT 14.3 H, INR 1.22 08/04/19 20:20: WBC 4.8, Hgb 9.2 L, Hct 27.6 L, Plt Count 190 08/04/19 20:20: Sodium 134 L, Potassium 4.0, BUN 19 H, Creatinine 4.05 H, Glucose 98, Magnesium 2.1, Total Bilirubin 0.7, AST 15, ALT 15, Alkaline Phosphatase 92 Assessment & Plan - Problems (Diagnosis) (1) Anemia in chronic kidney disease Current Visit: Yes Status: Acute (2) Diabetes mellitus type 2 in nonobese Current Visit: Yes Status: Acute (3) Pulmonary edema Current Visit: Yes Status: Acute (4) ESRD (end stage renal disease) Current Visit: No Status: Acute Physician Review Additional Text: Assessment Patient is a 88 year old female with HTN, NIDDM and ESRD on HD MWF who presented to the hospital for shortness of breath one day after her regular HD session. Basic labs revealed hypertensive emergency with SBP > 200. Her CXR was consistent with pulmonary edema. She received 80 mg of IV lasix. Nephrolgoy evaluated the patient and feels urgent HD is not needed at this time since patient is not severely volume overloaded. Her SBP is now 150; Acute respiraotry distress Pulmonary edema Hypertensive emergency ESRD on HD Anemia of chronic disease PLAN Continue telemetry monitoring Nephrology to give another dose of IV lasix today Monitor urine output Monitor BP, low threshold to transfer to ICU if severely hypertensive HD TOMORROW Discharge after HD
[2019-08-05 16:05] LABS: Urine Appearance TURBID; Urine Bilirubin NEGATIVE (NEG); Urine Blood 2+ (NEG); Urine Color DK YELLOW; Urine Glucose NEGATIVE (NEG); Urine Protein 2+ (NEG); Urine Urobilinogen 0.2 mg/dL (0.2-1.0); Urine pH 8.5 (5.0-7.0)
[2019-08-05 16:07] LABS: Urine Microscopic Reflex ORDER UMIC
[2019-08-05 16:30] LABS: Urine Amorphous Sediment 3+ /HPF (NONE SEEN); Urine Bacteria >50 /HPF (<20); Urine Culture Reflex Order REFLEXED; Urine RBC <5 /HPF (NONE SEEN)
[2019-08-05] MEDS ORDERED: DOXAZOSIN 2 MG TAB ONE (20:10)
[2019-08-05] MEDS: VITAMIN D 5,000 UNIT CAP PO SCH (20:25)
[2019-08-05] MEDS: ramipriL 5 MG CAP PO SCH (20:25)
[2019-08-05] MEDS: SERTRALINE HCL 50 MG TAB PO SCH (20:25)
[2019-08-05] MEDS: DOXAZOSIN 4 MG TAB PO SCH (20:30)
[2019-08-05] MEDS: ASCORBIC ACID PO SCH (20:30)
[2019-08-05] MEDS: CRANBERRY PO SCH (20:30)
[2019-08-05] MEDS ORDERED: VIT B COMPLEX AND C PO SCH (21:00)
[2019-08-05] MEDS ORDERED: FOLIC ACID PO SCH (21:00)
[2019-08-05] MEDS ORDERED: [UNRECOGNIZED DRUG - OTHER] PO SCH (21:00)
[2019-08-06] MEDS: HYDRALAZINE HCL 20 MG/ML VIAL IV PRN (01:42)
[2019-08-06 04:20] LABS: Absolute Lymphocytes (CBC) 0.7 K/uL (0.7-4.9); Basophils % 0.8 % (0-1.3); Hematocrit 27.4 % (36.0-45.0); Lymphocytes % 11.9 % (15.3-44.8); MPV 8.3 fL (7.6-11.3)
[2019-08-06 04:33] LABS: Magnesium 2.3 mg/dL (1.8-2.4); Potassium 4.2 mmol/L (3.5-5.1)
[2019-08-06] MEDS: INSULIN -REGULAR HUMAN 50 UNIT/0.5 ML ML SQ SCH ×4 (07:30→21:00)
[2019-08-06] MEDS ORDERED: DOXAZOSIN 2 MG TAB ONE ×2 (07:43→20:20)
[2019-08-06] MEDS ORDERED: HYDRALAZINE HCL 25 MG TABLET PO SCH (09:00)
[2019-08-06] MEDS: ASCORBIC ACID PO SCH ×2 (09:00→21:00)
[2019-08-06] MEDS: DOXAZOSIN 4 MG TAB PO SCH ×2 (09:00→21:00)
[2019-08-06] MEDS: CRANBERRY PO SCH ×2 (09:00→21:00)
[2019-08-06] MEDS: MEGESTROL 400 MG/10 ML UCUP PO SCH (09:31)
[2019-08-06] MEDS: CLOPIDOGREL 75 MG TABLET PO SCH (09:33)
[2019-08-06] MEDS: NIFEDIPINE XL 90 MG TABLET PO SCH ×2 (09:33→21:39)
[2019-08-06] MEDS: ISOSORBIDE MONO SR 30 MG TAB PO SCH ×2 (09:34→09:36)
[2019-08-06] MEDS: ASPIRIN 81 MG CHEWABLE TABLET PO SCH (09:35)
[2019-08-06] MEDS: HEPARIN 5000 UNIT/ML 1 ML VIAL SQ SCH ×2 (09:37→21:37)
[2019-08-06] MEDS ORDERED: ALBUTEROL 2.5 MG/3 ML NEB SOL NEB PRN (16:00)
--- NOTE | 2019-08-06 16:48 | P.PN ---
Subjective Date of Service: 08/06/19 Chief Complaint: Shortness of breath Subjective: Other (Patient reports increased fatigue. Patient to have dialysis today.) Physical Examination - Vital Signs Temperature: 98.1 F Blood Pressure: 162/62 Pulse: 81 Respirations: 18 Pulse Ox (%): 94 - Physical Exam General: Alert, Cooperative HEENT: Atraumatic Neck: Supple Respiratory: Diminished (To the bases) Cardiovascular: Normal pulses, Regular rate/rhythm Gastrointestinal: Normal bowel sounds Integumentary: No tenderness/swelling, No erythema, No warmth, No cyanosis Neurological: Normal speech, Normal strength at 5/5 x4 extr, Normal tone, Normal affect - Studies Laboratory Data (last 24 hrs) 08/06/19 03:52: Sodium 132 L, Potassium 4.2, BUN 29 H, Creatinine 5.52 H* D, Glucose 84, Magnesium 2.3 08/06/19 03:52: WBC 6.1 D, Hgb 9.1 L, Hct 27.4 L, Plt Count 216 Medications List Reviewed: Yes Assessment & Plan Discharge Plan: Home Plan to discharge in: 24 Hours Physician Review Additional Text: Assessment Patient is a 88 year old female with HTN, NIDDM and ESRD on HD MWF who presented to the hospital for shortness of breath one day after her regular HD session. Basic labs revealed hypertensive emergency with SBP > 200. Her CXR was consistent with pulmonary edema. She received 80 mg of IV lasix. Nephrolgoy evaluated the patient and feels urgent HD is not needed at this time since patient is not severely volume overloaded. Her SBP is now 150; Impression: Acute respiratory distress likely volume overload/pulmonary edema End-stage renal disease on hemodialysis Hypertension, uncontrolled with hypertensive emergency Anemia of chronic disease Plan: Patient still with increased fatigue. Patient will have dialysis today. Will continue to adjust IV Lasix and fluid input. Will have physical therapy assess ambulation. Will need to consider home with home health versus skilled placement. Await physical therapy recommendation. Will discuss further with nephrology about plan of care. Time Spent Managing Pts Care (In Minutes): 55
[2019-08-06] MEDS ORDERED: MULTIVITAMINS,THERAPEUT 1 TAB PO SCH (21:00)
[2019-08-06] MEDS: ramipriL 5 MG CAP PO SCH (21:37)
[2019-08-06] MEDS: ACETAMINOPHEN 500 MG TAB PO PRN (21:39)
[2019-08-06] MEDS: HYDRALAZINE HCL 25 MG TABLET PO SCH (21:39)
[2019-08-06] MEDS: VITAMIN D 5,000 UNIT CAP PO SCH (21:39)
[2019-08-06] MEDS: SERTRALINE HCL 50 MG TAB PO SCH (21:42)
[2019-08-07] MEDS ORDERED: TEMAZEPAM 15 MG CAP PO PRN (00:57)
--- NOTE | 2019-08-07 00:59 | PN ---
Date of Progress Note: 08/06/2019 Subjective: Patient is seen at bedside. She has completed dialysis today with 2 L of ultrafiltratio n which she tolerated well. The patient has no acute complaints. Denies any fevers, chills, chest p ain, shortness of breath, nausea, vomiting, or diarrhea. Objective: Vital Signs: Blood pressure 160/62, pulse 81, afebrile. General: No acute distress. HEENT: The patient does have facial edema. Heart: Regular rate and rhythm. No murmurs, rubs, gallops. Lungs: Diminished at the bases. Abdomen: Soft, nontender, nondistended. Extremities: No significant edema. Laboratory Data: Hemoglobin 9.1, hematocrit 27.4. Serum chemistry, sodium 132, potassium 4.2, chlor kacie 94, CO2 of 29, BUN 29, creatinine 5.52, glucose is 130, magnesium 2.3. UA from the was revi ewed with evidence of urinary tract infection. Urine culture is still pending. Current Medications: Reviewed. Impression: 1.End-stage renal disease on hemodialysis. 2.Acute on chronic diastolic congestive heart failure. 3.Acute respiratory failure. 4.Hypertensive emergency. Plan: Ms. Graham's volume status has significantly improved. Currently, blood pressure remains jovani vated and hydralazine will be increased to 100 mg t.i.d. We will continue monitoring the patient's b lood pressure. The patient can continue on her usual Tuesday, Tuesday, Tuesday dialysis schedule at this time. Continue a renal low-sodium diet. Anemia will be managed with CARTER as necessary. We will continue to follow. /MELISSA Voice ID: [id number] Report ID: [id number]
[2019-08-07 04:20] VITALS: O2SAT 97
[2019-08-07] MEDS: INSULIN -REGULAR HUMAN 50 UNIT/0.5 ML ML SQ SCH ×2 (07:30→11:30)
[2019-08-07] MEDS ORDERED: DOXAZOSIN 2 MG TAB ONE (07:47)
[2019-08-07] MEDS: MEGESTROL 400 MG/10 ML UCUP PO SCH (08:00)
[2019-08-07] MEDS: CRANBERRY PO SCH (09:00)
[2019-08-07] MEDS: DOXAZOSIN 4 MG TAB PO SCH (09:00)
[2019-08-07] MEDS: ASCORBIC ACID PO SCH (09:00)
[2019-08-07] MEDS: ISOSORBIDE MONO SR 30 MG TAB PO SCH (09:35)
[2019-08-07] MEDS: HEPARIN 5000 UNIT/ML 1 ML VIAL SQ SCH (09:35)
[2019-08-07] MEDS: CLOPIDOGREL 75 MG TABLET PO SCH (09:35)
[2019-08-07] MEDS: NIFEDIPINE XL 90 MG TABLET PO SCH (09:36)
[2019-08-07] MEDS: ASPIRIN 81 MG CHEWABLE TABLET PO SCH (09:36)
[2019-08-07] MEDS: HYDRALAZINE HCL 25 MG TABLET PO SCH ×2 (09:36→12:52)
--- NOTE | 2019-08-07 11:42 | P.DS ---
Admission Date: 08/06/19 Discharge Date: 08/07/19 Primary Care Provider: Dr. Wilson; Nephrology-Dr. Guardado Disposition: DC HOME/HOME HEALTH CARE Discharge Condition: GOOD Reason for Admission: Shortness of breath Consultations: Nephrology-Dr. Guardado/Dr. Mederos Procedures: Ct Head: FINDINGS: No intracranial hemorrhage, mass, edema or shift of mid-line stru ctures. No acute infarction changes seen. No cortical edema or sulcal effacement. Moderate atrophy and chronic ischemic changes are present. Ventricles are in proportion. Arterial tree calcifications are present. Intracranial findings are similar to the comparison. Mastoid air cells and visualized portions of the paranasal sinuses are clear. No acute bony findings. IMPRESSION: No acute CT Head finding. Atrophy and chronic ischemic change similar to comparison. CXR: FINDINGS: Lung volumes are low. Interstitial and alveolar opacities are present in both lung dunne. Findings are worse in the left base. Costophrenic angle blunting present. Cardiomegaly and vascular engorgement are present. No measurable pleural effusion and no pneumothorax. No acute bony abnormality seen. No acute aortic findings suspected. IMPRESSION: Moderate CHF/volume overload pattern. Focally more prominent left base finding could indicate concurrent pneumonia. Medical Problem List: Acute respiratory distress likely volume overload/pulmonary edema End-stage renal disease on hemodialysis Hypertension, uncontrolled with hypertensive emergency Anemia of chronic disease Depression with anxiety Brief History of Present Illness: 88-year-old female with HTN, NIDDIM, and ESRD on HD. Patient presented with shortness of breath related to volume overload. Patient also had hypertensive emergency. Hospital Course: Patient presented with shortness of breath. Patient found to have acute respiratory distress likely from volume overload/pulmonary edema. Patient with underlying hypertension, end-stage renal disease on hemodialysis, diabetes mellitus type 2 and anemia of chronic disease. Patient did well then the course of her stay. Patient received dialysis with improvement. Patient had hypertensive emergency. Adjustment in medication was required. At discharge she is without significant shortness of breath. Patient stable for discharge. Case discussed at length with nephrology. Nephrology did increase her hydralazine. At discharge she will continue with Doxazosin 8 mg twice daily, hydralazine 100 mg 3 times a day, Procardia XL 90 mg 1 pill twice daily, ramipril 10 mg daily, and isosorbide mononitrate 90 mg daily. Patient will continue with a 1500 cc per day fluid restriction and low-salt diet. Patient will monitor her weight daily. Patient will continue with dialysis as directed by nephrology. Recommend to monitor her blood pressure daily. Recommend to maintain blood pressure less 150/80. Further adjustment can be done by her PCP or nephrology. Recommend follow up with nephrology within 1 week to further monitor and address. Home health and physical therapy will be arranged prior to discharge. Patient with other medical problems including CAD, depression with anxiety, anemia of chronic disease. Patient will continue with her other home medicatio ns. Vital Signs/Physical Exam: Temp Pulse Resp BP Pulse Ox 98.0 F 84 18 151/55 H 93 08/07/19 08:00 08/07/19 09:36 08/07/19 08:00 08/07/19 09:36 08/07/19 08:00 General: Alert, In no apparent distress, Cooperative HEENT: Atraumatic Neck: Supple Respiratory: Clear to auscultation bilaterally, Normal air movement Cardiovascular: Normal pulses, Regular rate/rhythm Gastrointestinal: Normal bowel sounds, Soft and benign, Non-distended Integumentary: No erythema, No warmth, No cyanosis Neurological: Normal speech, Normal strength at 5/5 x4 extr, Normal tone, Normal affect Laboratory Data at Discharge: WBC 6.1 K/uL (4.3-10.9) D 08/06/19 03:52 Hgb 9.1 g/dL (12.0-15.0) L 08/06/19 03:52 Hct 27.4 % (36.0-45.0) L 08/06/19 03:52 Plt Count 216 K/uL (152-406) 08/06/19 03:52 PT 14.3 SECONDS (9.5-12.5) H 08/04/19 20:20 INR 1.22 08/04/19 20:20 Sodium 132 mmol/L (136-145) L 08/06/19 03:52 Potassium 4.2 mmol/L (3.5-5.1) 08/06/19 03:52 BUN 29 mg/dL (7-18) H 08/06/19 03:52 Creatinine 5.52 mg/dL (0.55-1.3) H* D 08/06/19 03:52 Glucose 84 mg/dL (74-106) 08/06/19 03:52 Phosphorus 3.3 mg/dL (2.5-4.9) 08/05/19 05:21 Magnesium 2.3 mg/dL (1.8-2.4) 08/06/19 03:52 Total Bilirubin 0.7 mg/dL (0.2-1.0) 08/04/19 20:20 AST 15 U/L (15-37) 08/04/19 20:20 ALT 15 U/L (12-78) 08/04/19 20:20 Alkaline Phosphatase 92 U/L (45-117) 08/04/19 20:20 Home Medications: Aspirin 81 mg PO DAILY 08/05/19 Cholecalciferol (Vitamin D3) [Vitamin D 5,000 IU Cap*] 1 cap PO BEDTIME 08/05/19 Clopidogrel Bisulfate [Plavix*] 75 mg PO DAILY 08/05/19 Cranberry Conc/Ascorbic Acid [Cranberry Plus Vitamin C Sftgl] 1 cap PO BID 08/05/19 Doxazosin Mesylate 8 mg PO BID 08/05/19 Folic Acid/Vit B Complex and C [Dialyvite 800 Chewable Wafer] 800 mg PO BEDTIME 08/05/19 Isosorbide Mononitrate [Isosorbide Mononitrate ER] 3 tab PO DAILY 08/05/19 Megestrol [Megace*] 40 mg PO BREAKFAST 08/05/19 NIFEdipine [Nifedipine ER] 90 mg PO BID 08/05/19 Ramipril [Altace] 10 mg PO BEDTIME 08/05/19 Sertraline [Zoloft*] 50 mg PO BEDTIME 08/05/19 Hydralazine HCl [Apresoline] 100 mg PO TID #90 08/07/19 New Medications: Hydralazine HCl [Apresoline] 100 mg PO TID #90 Patient Discharge Instructions: 1. Recommend follow up with PCP in 1 week to follow up this hospitalization. 2. Patient presented with shortness of breath. Patient found to have acute respiratory distress likely from volume overload/pulmonary edema. Patient with underlying hypertension, end-stage renal disease on hemodialysis, diabetes mellitus type 2 and anemia of chronic disease. Patient did well then the course of her stay. Patient received dialysis with improvement. Patient had hypertensive emergency. Adjustment in medication was required. At discharge she is without significant shortness of breath. Patient stable for discharge. Case discussed at length with nephrology. Nephrology did increase her hydralazine. At discharge she will continue with Doxazosin 8 mg twice daily, hydralazine 100 mg 3 times a day, Procardia XL 90 mg 1 pill twice daily, ramipril 10 mg daily, and isosorbide mononitrate 90 mg daily. Patient will continue with a 1500 cc per day fluid restriction and low-salt diet. Patient will monitor her weight daily. Patient will continue with dialysis as directed by nephrology. Recommend to monitor her blood pressure daily. Recommend to maintain blood pressure less 150/80. Further adjustment can be done by her PCP or nephrology. Recommend follow up with nephrology within 1 week to further monitor and address. Home health and physical therapy will be arranged prior to discharge. 3. Patient with other medical problems including CAD, depression with anxiety, anemia of chronic disease. Patient will continue with her other home medications. Diet: Renal Activity: Fall precautions Time spent managing pt's care (in minutes): 55
[2019-08-07 12:39] VITALS: BP 122/62; TEMP 97.4
--- NOTE | 2019-08-07 20:21 | PN ---
Date of Progress Note: 08/07/2019 Subjective: Patient seen at the bedside. No overnight events reported. The patient is currently pr eparing for discharge. She feels well. Denies any fevers, chills, chest pain, shortness of breath, nausea, vomiting, or diarrhea. However, the patient did have low oxygen saturation with O2 saturatio n of 90% and is being discharged on home oxygen. Objective: Vital Signs: Blood pressure 122/62, pulse 78, afebrile. Blood pressure trend has been i mproving since the increase of hydralazine. General: Elderly frail. No acute distress. Heart: Regular rate and rhythm. No murmurs, rubs, gallops. Lungs: Few crepitations at the bases, otherwise mid lung dunne and upper lung dunne are clear. Abd omen: Soft, nontender, nondistended. Extremities: With trace edema. Laboratory Data: CBC reviewed. Serum chemistry from the also noted. Current Medications: Reviewed. Impression: 1.End-stage renal disease, on hemodialysis. 2.Acute on chronic diastolic congestive heart failure. 3.Acute respiratory failure. 4.Hypertensive emergency. Plan: Ms. Graham is being discharged today. Blood pressure trend has improved. It is imperative t hat the patient's blood pressure is well controlled to avoid acute diastolic congestive heart failure exacerbation. The patient has been re-educated on a low-sodium diet. We will continue to monitor b lood pressure closely in the dialysis setting. Daughter was also at the bedside and she has been informed of the plan of care. /NAIDAL Voice ID: [id number] Report ID: [id number]
== END 2019-08-07 16:48 | disposition home health service (06) | DRG 291 ==
LOC: ER 18:41 → ERHOLD 23:27 → 2ND 08-05 00:09 → OBSVTOIN 08-06 07:22
PROVIDERS: ADMIT Internal Medicine; ATTEND Family Medicine
PROC: 5A1D70Z Performance of Urinary Filtration, Intermittent, Less than 6 Hours Per Day (ICD-10-PCS; principal; 2019-08-06)
DX: I13.2 Hypertensive heart and chronic kidney disease with heart failure and with stage 5 chronic kidney disease, or end stage renal disease (principal); N18.6 End stage renal disease; I50.33 Acute on chronic diastolic (congestive) heart failure; J96.00 Acute respiratory failure, unspecified whether with hypoxia or hypercapnia; I16.1 Hypertensive emergency; Z99.2 Dependence on renal dialysis; Z88.1 Allergy status to other antibiotic agents; Z88.5 Allergy status to narcotic agent; Z88.0 Allergy status to penicillin; Z88.8 Allergy status to other drugs, medicaments and biological substances; E11.22 Type 2 diabetes mellitus with diabetic chronic kidney disease; I25.10 Atherosclerotic heart disease of native coronary artery without angina pectoris; E78.5 Hyperlipidemia, unspecified; Z90.710 Acquired absence of both cervix and uterus; Z90.49 Acquired absence of other specified parts of digestive tract; D63.1 Anemia in chronic kidney disease; Z79.82 Long term (current) use of aspirin; Z79.02 Long term (current) use of antithrombotics/antiplatelets; Z79.899 Other long term (current) drug therapy; D63.8 Anemia in other chronic diseases classified elsewhere; F41.8 Other specified anxiety disorders
CPT/HCPCS: 36415; 70450; 71045; 80048; 80076; 81003; 81015; 82947; 83735; 83880; 84100; 84484; 85025; 85610; 87086; 87088; 90935; 93005; 94640; 94760; 97161; 99285; G0378; J0360; J1644; J1940; J2405

== ENCOUNTER 2019-08-19 02:34 | Observation (INO) | payer OTHER ==
--- OUTSIDE RECORDS SUMMARY | 2019-08-19 02:36 | XMS REPORT | Clinical Summary ---
:1930 Author Organization [facility] Address [address] [place] [address] Care Team Providers Name Role Phone Leonid [...] INFLUENZA VACCINE 10/20/2019 Results Not on fileafter 08/18/2018 Insurance Payer Benefit Plan / Subscriber ID Effective Dates Phone Addre ss Type Group MEDICARE MEDICARE PART A xxxxxxxxxx 1995-Present [facility] [place] Medicare AND B AETNA AETNA PPO OPEN xxxxxxxxxx 1995-Present PPO CHOICE Advance Directives For more information, please contact: [phone] Type Date Recorded Patient Beef Lugger Explanati on Advance Directives, Living Will and Medical Power of Flight Attendant/Inflight Supervisor
--- OUTSIDE RECORDS SUMMARY | 2019-08-19 02:38 | XMS REPORT | Clinical Summary ---
:1930 Author Organization [facility] Address [address] [place] [address] Care Team Providers Name Role Phone Unavailable [...] Care Team Description 02/17/2019 Travel 02/16/2019 - [facility] General Internal [facility], Acute encep halopathy (Primary Dx); 02/19/2019 Encounter Medicine Debby Johns MD Acute ischemic stroke ([facility]); Lisa Choi, Anemia of ch ronic disease; ESRD on hemodialysis ([facility]); Fabiola Pratt Essential hype rtension MD Poppy after 08/18/2018 Social History Tobacco Use Types Packs/Day Years [...] Taken Blood Pressure 145/67 02/19/2019 11:41 AM FILBERT GROWER Pulse 79 02/19/2019 11:41 AM FILBERT GROWER Temperature 36.9 C (98.5 F) 02/19/2019 11:41 AM FILBERT GROWER Respiratory Rate 20 02/19/2019 11:41 AM FILBERT GROWER Oxygen Saturation 92% 02/19/2019 11:41 AM FILBERT GROWER Inhaled Oxygen Concentration - - Weight 66.8 kg (147 lb 4.3 oz) 02/19/2019 10:57 AM FILBERT GROWER Height 165.1 cm (5' 5") 02/16/2019 4:00 PM FILBERT GROWER Body Mass Index 24.51 02/19/2019 10:57 AM FILBERT GROWER Plan of Treatment Not on file Procedures Procedure Name Priority Date/Time Associated Comments Diagnosis RHYTHM STRIP - SCAN 02/22/2019 8:50 AM FILBERT GROWER POCT-GLUCOSE METER Routine 02/19/2019 11:58 Resul ts for this AM FILBERT GROWER procedure are i n the results section. HEMODIALYSIS INPATIENT Routine 02/19/2019 7:05 AM FILBERT GROWER CBC W/PLT COUNT & AUTO Routine 02/19/2019 4:24 R esults for this DIFFERENTIAL AM FILBERT GROWER procedure are i n the results section. CBC W/PLT COUNT & AUTO Routine 02/19/2019 4:24 R esults for this DIFFERENTIAL AM FILBERT GROWER procedure are i n the results section. POCT-GLUCOSE METER Routine 02/18/2019 8:49 Resul ts for this PM FILBERT GROWER procedure are i n the results section. POCT-GLUCOSE METER Routine 02/18/2019 5:11 Resul ts for this PM FILBERT GROWER procedure are i n the results section. POCT-GLUCOSE METER Routine 02/18/2019 9:01 Resul ts for this AM FILBERT GROWER procedure are i n the results section. CBC W/PLT COUNT & AUTO Routine 02/18/2019 4:57 R esults for this DIFFERENTIAL AM FILBERT GROWER procedure are i n the results section. CBC W/PLT COUNT & AUTO Routine 02/18/2019 4:57 R esults for this DIFFERENTIAL AM FILBERT GROWER procedure are i n the results section. COMPREHENSIVE Routine 02/18/2019 4:57 Results fo r this METABOLIC PANEL AM FILBERT GROWER procedure ar e in the results section. POCT-GLUCOSE METER Routine 02/17/2019 10:41 Resul ts for this PM FILBERT GROWER procedure are i n the results section. ECHOCARDIOGRAM REPORT 02/17/2019 9:21 - SCAN PM FILBERT GROWER POCT-GLUCOSE METER Routine 02/17/2019 5:58 Resul ts for this PM FILBERT GROWER procedure are i n the results section. MR BRAIN WITHOUT IV Routine 02/17/2019 3:41 Resu lts for this CONTRAST PM FILBERT GROWER procedure are i n the results section. WOUND CULTURE + GRAM Routine 02/17/2019 1:10 Res ults for this STAIN PM FILBERT GROWER procedure are i n the results section. POCT-GLUCOSE METER Routine 02/17/2019 11:51 Resul ts for this AM FILBERT GROWER procedure are i n the results section. DRUG SCREEN, URINE, Routine 02/17/2019 11:30 COMPREHENSIVE AM FILBERT GROWER URINALYSIS W/ REFLEX Routine 02/17/2019 11:30 Res ults for this URINE CULTURE AM FILBERT GROWER procedure are in the results section. URINE CULTURE Routine 02/17/2019 11:30 Results fo r this AM FILBERT GROWER procedure are i n the results section. HEMOGLOBIN A1C Routine 02/17/2019 7:34 Results f or this AM FILBERT GROWER procedure are i n the results section. VITAMIN B12 AND FOLATE Routine 02/17/2019 7:34 R esults for this AM FILBERT GROWER procedure are i n the results section. CBC W/PLT COUNT & AUTO Routine 02/17/2019 4:52 R esults for this DIFFERENTIAL AM FILBERT GROWER procedure are i n the results section. CBC W/PLT COUNT & AUTO Routine 02/17/2019 4:52 R esults for this DIFFERENTIAL AM FILBERT GROWER procedure are i n the results section. COMPREHENSIVE Routine 02/17/2019 4:52 Results fo r this METABOLIC PANEL AM FILBERT GROWER procedure ar e in the results section. LIPID PANEL Routine 02/17/2019 4:52 Results for this AM [facility]BERT GROWER procedure are i n the results section. POCT-GLUCOSE METER Routine 02/17/2019 12:10 Resul ts for this AM FILBERT GROWER procedure are i n the results section. HEMODIALYSIS INPATIENT Routine 02/16/2019 9:41 PM FILBERT GROWER 2D ECHO W/ DOPPLER Routine 02/16/2019 7:06 Resul ts for this (CW/PW/COLOR) PM FILBERT GROWER procedure are in the results section. CBC W/PLT COUNT & AUTO Routine 02/16/2019 6:41 R esults for this DIFFERENTIAL PM FILBERT GROWER procedure are i n the results section. HEPATITIS C ANTIBODY Add-On 02/16/2019 6:41 Res ults for this PM FILBERT GROWER procedure are i n the results section. HEPATITIS B SURFACE MARILEE 02/16/2019 6:41 Resu lts for this ANTIGEN PM FILBERT GROWER procedure are i n the results section. CBC W/PLT COUNT & AUTO Routine 02/16/2019 6:41 R esults for this DIFFERENTIAL PM FILBERT GROWER procedure are i n the results section. VITAMIN B12 Routine 02/16/2019 6:41 Results for this PM [facility]BERT GROWER procedure are i n the results section. RPR Routine 02/16/2019 6:41 Results for this PM FILBERT GROWER procedure are i n the results section. TSH Routine 02/16/2019 6:41 Results for this PM FILBERT GROWER procedure are i n the results section. HEMOGLOBIN A1C AP Routine 02/16/2019 6:41 Results f or this PM FILBERT GROWER procedure are i n the results section. TROPONIN I Routine 02/16/2019 6:41 Results for this PM [facility]ERT GR[facility] procedure are i n the results section. PROTHROMBIN TIME/INR Routine 02/16/2019 6:41 Res ults for this PM [facility]ERT GROWER procedure are i n the results section. COMPREHENSIVE Routine 02/16/2019 6:41 Results fo r this METABOLIC PANEL PM FILBERT GROWER procedure ar e in the results section. XR CHEST 1 VIEW MARILEE 02/16/2019 5:21 Results for this PORTABLE/BEDSIDE PM [facility]ERT GROWER procedure a re in the results section. after 08/18/2018 Results RHYTHM STRIP - SCAN (02/22/2019 8:50 AM FILBERT GROWER) Narrative Performed At This result has an attachment that is no t available. POC-Glucose meter (02/19/2019 11:58 AM FILBERT GROWER)Only the most recent of8 results within the time period is included. POC-Glucose Meter 77Comment: : TESTED AT 70 - 110 mg/dL [facility] [address] [facility], [address]: Metal Buffer/Nurses Assistant ID = [id number] for Agustina Charlottejosephshyla Specimen Blood Performing Organization Address City/State/Zipcode Phone Number [address] [phone] CENTER CBC with platelet count + automated diff (02/19/2019 4:24 AM FILBERT GROWER)Only the most recent of4 resultswithin the time period is included. WBC 7.5 3.5 - 10.5 K/L [facility] RBC 2.47 (L) 3.93 - 5.22 M/L [facility] Hemoglobin 7.5 (L) 11.2 - 15.7 GM/DL [facility] Hematocrit 24.6 (L) 34.1 - 44.9 % [facility] MCV 99.6 (H) 79.4 - 94.8 fL [facility] MCH 30.4 25.6 - 32.2 pg [facility] MCHC 30.5 (L) 32.2 - 35.5 GM/DL [facility] RDW 15.3 (H) 11.7 - 14.4 % [facility] Platelets 183 150 - 450 K/CU MM [facility] MPV 9.6 9.4 - 12.3 fL [facility] nRBC 0 0 - 0 /100 WBC [facility] % Neutros 76 % [facility] % Lymphs 15 % [facility] % Monos 5 % [facility] % Eos 4 % [facility] % Baso 0 % [facility] # Neutros 5.70 1.56 - 6.13 K/L [facility] # Lymphs 1.11 (L) 1.18 - 3.74 K/L [facility] # Monos 0.39 (H) 0.24 - 0.36 K/L [facility] # Eos 0.28 0.04 - 0.36 K/L [facility] # Baso 0.02 0.01 - 0.08 K/L [facility] Immature Granulocytes-Relative 0 0 - 1 % C HI [facility] Specimen Blood Performing Organization Address City/State/Zipcode Phone Number [facility] [address] [place] [address] CENTER Comprehensive metabolic panel (02/18/2019 4:57 AM FILBERT GROWER)Only the most recent of3 resultswithin the time period is included. Protein, Total 6.2 6.0 - 8.3 gm/dL [facility] ALTH [facility] ER Albumin 3.1 (L) 3.5 - 5.0 g/dL [facility] ER Alkaline Phosphatase 89 40 - 150 U/L [facility] ER Total Bilirubin 0.5 0.2 - 1.2 mg/dL [facility] Sodium 137 136 - 145 meq/L [facility] Potassium 4.4 3.5 - 5.1 meq/L [facility] Chloride 101 98 - 107 meq/L [facility] ER CO2 28 22 - 29 meq/L [facility] ER BUN 19 7 - 21 mg/dL [facility] ER Creatinine 4.63 (H) 0.57 - 1.25 mg/dL [facility] Glucose 75 70 - 105 mg/dL [facility]TH [facility] ER Calcium 8.6 8.4 - 10.2 mg/dL [facility] ER AST 34 5 - 34 U/L [facility] ER ALT 21 6 - 55 U/L [facility] ER EGFR 11Comment: ESTIMATED GFR mL/min/1.[address] [facility] IS NOT ACCURATE [facility] CREATININE CLEARANCE IN PREDICTING GLOMERULAR FILTRATION RATE. ESTIMATED GFR IS NOT APPLICABLE FOR DIALYSIS PATIENTS. Specimen Blood Performing Organization Address City/State/Zipcode Phone Number [facility] [address] [place] [address] CENTER ECHOCARDIOGRAM REPORT - SCAN (02/17/2019 9:21 PM FILBERT GROWER) Narrative Performed At This result has an attachment that is no t available. MR brain without IV contrast (02/17/2019 3:41 PM FIL[facility]ERT GROWER) Specimen Narrative Performed At FINAL REPORT [employer] MR, BRAIN, WITHOUT CONTRAST INDICATION: Stroke, follow [...] External Ris In - 02/17/2019 4:08 PM FIL[facility]ERT GROWER FINAL REPORT MR, BRAIN, WITHOUT CONTRAST INDICATION: [...] 6:05:48 Performing Organization Address City/State/Zipcode Phone Number [facility] Wound culture + gram stain (02/17/2019 1:10 PM FIL[facility]ERT GROWER) Result No growth [facility] Gram Stain Result <1+ WBCs [facility] Gram Stain Result No organisms seen [facility] Specimen Abscess Performing Organization Address City/State/Zipcode Phone Number [facility] [address] [place] [address] [place] Urinalysis w/Microscopic + Reflex to Culture (02/17/2019 11:30 AM FIL[facility]ERT GROWER) Color, UA Yellow [facility] Clarity, UA Hazy [facility] Specific [place], UA 1.011 1.001 - 1.035 [facility] pH, UA 8.5 (H) 5.0 - 8.0 [facility] Protein, UA 300 mg/dL (A) Negative [facility] Glucose, UA Negative Negative [facility] Ketones, UA Negative Negative [facility] Bilirubin, UA Negative Negative [facility] Blood, UA Trace (A) Negative [facility] Nitrite, UA Positive (A) Negative [facility] Leukocytes, UA Large (A) Negative [facility] Urobilinogen, UA 0.2 0.2 - 1.0 mg/dL [facility] RBC, UA 9 /HPF [facility] WBC, UA 24 /HPF [facility] Bacteria, UA Moderate [facility] Mucus Many [facility] Squam Epithel, UA 50 /HPF [facility] Specimen Source [facility] Specimen Urine Performing Organization Address City/State/Zipcode Phone Number [facility] [address] [place] [address] [place] Drug screen, urine, comprehensive (02/17/2019 11:30 AM FIL[facility]ERT GROWER) Specimen Urine Narrative Performed At This result has an attachment that is no t available. Urine culture (02/17/2019 11:30 AM FIL[facility]ERT GROWER) Result 40-49,000 col/mL skin rena [facility] Specimen Urine Performing Organization Address [facility] Phone Number [address] [address] [place] Vitamin B12 and Folate (02/17/2019 7:34 AM FIL[facility] GROWER) Vitamin B12 >2000 (H) 213 - 816 pg/mL [facility] Folate 16.5 >=7.0 ng/mL [facility] Specimen Blood Performing Organization Address [facility] Phone Number [address] [address] [place] Hemoglobin A1c (02/17/2019 7:34 AM FIL[facility]ERT GROWER)Only the most recent of2 resultswithin the time period is included. Hemoglobin A1C 4.3 4.3 - 6.1 % [facility] Specimen Blood Performing Organization Address [facility] Phone Number [address] [address] [place] Fasting lipid panel (02/17/2019 4:52 AM FIL[facility]ERT GROWER) Triglycerides 61 mg/dL [facility] Cholesterol 104 mg/dL [facility] HDL 56 mg/dL [facility] LDL Calculated 36 mg/dL [facility] Specimen Blood Narrative Performed At Triglyceride Reference Range: [facility] Low Risk <150 [id number] High Risk 200-499 Very High Risk>=500 Cholesterol Reference Range: Low Risk <200 [id number] High Risk>240 HDL Cholesterol Reference Range: Low Risk >=60 High Risk <40 LDL Cholesterol Reference Range: Optimal<100 Near [id number] Hkgfwisqen782-576 Msfg160-572 Very High >=190 Fasting Performing Organization Address [facility] Phone Number [facility] [address] CENTER 2D Echo W/Doppler(CW/PW/Color) (02/16/2019 7:06 PM FIL[facility]ERT GROWER) Ejection Fraction [facility] ECHO HEAR [facility] Specimen Narrative Performed At Transthoracic Echocardiography Report (T TE) [facility] ECHO [facility] Demographics Patient Name RUBI,Date of Study 02/16/2019 ERENDIRA [id number] GenderFema Visit Number [id number] Blake [id number] Room Number [id number] Number Date of Birth1Referring Physician Debby Velez Age88 year(s)Training And Development Project Leader Trevor Lambert InterpretingBrianna Dotson MD Procedure Type [...] Mild aortic stenosis. CT 1.91 cm2. 5. Bdzn-lz-tyxafojo tricuspid regurgita tion. 6. Estimated peak systolic [...] calcification. Mi ld MV leaflet thickening. Tricuspid AiyfbHcli-xe-relhjipm tricuspid regurgitation. Es timated peak systolic PA [...] External Ris In - 02/17/2019 3:09 PM FIL[facility] GROWER Transthoracic Echocardiography Report (TTE) Demographics Patient Name RUBI, Date of Study 02/16/2019 ERENDIRA Gender Female Visit Number [id number] Race Black Room Num [place] [address] Number Date of 1930 Lucina watkins Physician Debby Velez Age 88 year(s) Sonograp her Trevor Zuñiga Senior Instructor Brianna Mccauley MD Procedure Type of Study [...] Mild aortic stenosis. CT 1.91 cm2. 5. Utuu-yn-kkyiwmsi tricuspid regurgita tion. 6. Estimated peak systolic [...] calcification. Mild MV leaflet thickening. Tricuspid Valve Wrqj-ho-vhyebcvz tricuspid regurgitation. Estimated peak s ystolic PA [...] CPACS Hepatitis C antibody (02/16/2019 6:41 PM FILBERT GROWER) Hepatitis C Ab Nonreactive Nonreactive [facility] Specimen Blood Performing Organization Address City/State/Zipcode Phone Number [address] [address] CENTER Troponin I (02/16/2019 6:41 PM FILBERT GROWER) Troponin I 0.04 (H) 0.00 - 0.03 ng/mL [facility] Specimen Blood Narrative Performed At Troponin I (TnI) levels must be interpreted [facility] in the context of the presenting symptoms [...] tachyarrhythmia. Performing Organization Address City/State/Zipcode Phone Number [address] [address] [place] RPR (02/16/2019 6:41 PM FILBERT GROWER) RPR Nonreactive Nonreactive [facility] Specimen Blood Performing Organization Address City/[facility]/Zipcode Phone Number [address] [address] [place] Hepatitis B surface antigen (02/16/2019 6:41 PM FILBERT GROWER) HBsAg Screen Nonreactive Nonreactive [facility] Specimen Blood Performing Organization Address City/[facility]/Zipcode Phone Number [address] [address] [place] Prothrombin time/INR (02/16/2019 6:41 PM FILBERT GROWER) Protime 16.0 (H) 11.9 - 14.2 seconds [facility] INR 1.4 <=5.9 [facility] Specimen Blood Narrative Performed At Effective 08/16/2018: PT Reference Range [facility] Change New: 11.9-14.2Previous: 11.7-14.7 RECOMMENDED COUMADIN/WARFARIN INR THERAPY RANGES STANDARD DOSE: 2.0-3.0Includes: PROPHYLAXIS for venous thrombosis, systemic embolization; TREATMENT for venous thrombosis and/or pulmonary embolus. HIGH RISK: Target INR is 2.5-3.5 for patients wiht mechanical heart valves. Performing Organization Address City/State/Zipcode Phone Number [facility] [address] [place] [phone] CENTER TSH (02/16/2019 6:41 PM FILBERT GROWER) TSH 1.78 0.35 - 4.94 uIU/mL [facility] Specimen Blood Performing Organization Address City/[facility]/Zipcode Phone Number [address] [address] [place] Vitamin B12 (02/16/2019 6:41 PM FILBERT GROWER) Vitamin B12 >2000 (H) 213 - 816 pg/mL [facility] Specimen Blood Performing Organization Address City/[facility]/Zipcode Phone Number [address] [phone] CENTER XR chest 1 view portable / bedside (02/16/2019 5:21 PM FILBERT GROWER) Specimen Narrative Performed At FINAL REPORT [facility] TECHNIQUE: Frontal view of the chest. INDICATION: [...] MD Report Verified Date/Time:02/16/2019 18:34:17 Reading Location: [facility] [id number] [facility] Room Procedure Note Interface, External Ris In - 02/16/2019 6:36 PM FILBERT GROWER FINAL REPORT TECHNIQUE: Frontal view of the [...] Verified Date/Time: 02/16/2019 1 8:34:17 Reading Location: [facility] C0[facility] Room Performing Organization Address City/State/Zipcode Phone Number GE RIS after 08/18/2018 Insurance Payer Benefit Plan / Group Subscriber ID Type Phone A ddress [employer] - MEDICARE MGD [employer] MEDICARE ADV xxxxxxxxx Maps Contracted CARE Advance Directives For more information, please contact:[place] [id number] [place], [place] [phone] Code Status Date Activated Date Inactivated Comments Full Code 02/16/2019 4:33 PM 02/19/2019 6:41 PM This code status was determined by: Patient
--- OUTSIDE RECORDS SUMMARY | 2019-08-19 02:41 | XMS REPORT | Continuity of Care Document ---
:1930 Author Organization [employer] Care Team Providers Name Role Phone [employer] Unavailable Un available Problems Problem Status Onset Classification Date Comments Sourc e Date Reported Dialysis AV fistula Active 11/28/2018 [facility] malfunction, initial 019 Health encounter Anemia, unspecified 06/15/2018 018 [place] CHF, SYMPTOMATIC Active Mem orial ANEMIA 018 [place] CHF EXACERBATION Active Mem orial 018 [place] ACUTE CONGESTIVE HEART Active [facility] FAILURE, ESRD 018 [place] Hip pain (finding) Active Problem 06/15/2018 Data 013 migrated [place] from [employer] on 08/17/14. Iron deficiency anemia Active Problem 06/15/2018 Data MH (disorder) 013 migrated [place] from [employer] on 08/17/14. Loss of appetite Active Problem 06/15/2018 Data MH (finding) 013 migrated [place] from [employer] on 08/17/14. Gastroesophageal Active Problem 06/15/2018 Data reflux disease 013 migrated [place] and (disorder) from [employer] on 08/17/14. Lung mass (finding) Active Problem 06/15/2018 Data 013 migrated [place] from [employer] on 08/17/14. Thyroid nodule Active Problem 06/15/2018 Data MH (disorder) 013 migrated [place] from [employer] on 08/17/14. Osteoarthritis of knee Active Problem 06/15/2018 Data MH (disorder) 012 migrated [place] from [employer] on 08/17/14. Long-term drug therapy Active Problem 06/15/2018 Data MH (procedure) 012 migrated [place] from [employer] on 08/17/14. Malaise and fatigue Active Problem 06/15/2018 Data MH (finding) 012 migrated [place] from [employer] on 08/17/14. Abnormal cytology Active 2 Problem 06/15/2018 Data M H findings (finding) 012 migrated [place] from [employer] on 08/17/14. 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 Pure 06/15/2018 hypercholesterolemia, [place] unspecified Heart failure, 06/15/2018 unspecified [place] Unilateral primary 06/15/2018 osteoarthritis, [facility] unspecified knee Anemia in other 06/15/2018 chronic diseases [place] classified elsewhere Thrombocytopenia, 06/15/2018 M H unspecified [place] Hypertensive urgency 06/15/2018 MH [place] Gastro-esophageal 06/15/2018 M H reflux disease without [place] esophagitis Nicotine dependence, 06/15/2018 cigarettes, [place] uncomplicated 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 Constipation Active Problem 06/15/2018 Data MH (disorder) migrated [place] from [employer] on 08/17/14. Diabetes mellitus Active Problem 06/15/2018 Data M H (disorder) migrated [place] from [employer] on 08/17/14. Hypercholesterolemia Active Problem 06/15/2018 Data MH (disorder) migrated [place] from [employer] on 08/17/14. Impaired glucose Active Problem 06/15/2018 Data MH tolerance (disorder) migrated [place] from [employer] on 08/17/14. Acute respiratory 08/05/2017 M H failure with hypoxia [place] Acute on chronic 08/05/2017 diastolic (congestive) [place] heart failure Patient's 08/05/2017 noncompliance with [place] other medical treatment and regimen Anemia in chronic 08/05/2017 M H kidney disease [place] and Other malaise 08/05/2017 [place] Personal history of 08/05/2017 nicotine dependence [place] HEART FAILURE, Active Memor ial UNSPECIFIED [place] ACUTE DIASTOLIC Active Migel rial (CONGESTIVE) HEART H ermann FAILU Medications Medication Details Route Status Patient Ordering Order Source Instructions Provider Date traMADol 50 mg Take 1 tablet Oral Active UTM B tablet by mouth [facility] every 6 (six) hours as needed for Pain (scale 7-10). Hydralazine Notes: (Same Inactive Hydrochloride as: 018 [place] 100 MG Oral Apresoline) Tablet May interfere w/enteral feedings Take With Food Hydralazine 100 mg = 1 Active Hydrochloride tab, PO, Q8H, 018 [place] 100 MG Oral # 90 tab, 2 Tablet Refill(s), Pharmacy: [facility]/pharmacy #[id number] Doxazosin Notes: (Same No Longer as: Cardura) Active 018 [place] Clonidine Notes: (Same No Longer Hydrochloride As: Catapres) Active 018 [place] 0.3 MG Oral Tablet isosorbide Notes: (Same No Longer mononitrate as:Imdur) "Do Active 018 [place] extended Not Crush" release Take on empty stomach/ full glass of water. Do not crush Plavix Notes: (Same No Longer As: Plavix) Active 018 [place] Aspirin Notes: Do not No Longer MH crush or Active 018 [place] chew. (Same As: Ecotrin) Epogen Notes: (Same Inactive as: Procrit) 018 [place] epoetin ana rosa 3000 unit/1 ml VL. For dialysis use only WASTE: F/P - Red; E -Red MEDICATION WASTE Product Size: 3000 unit Product Wasted: ___ unit epoetin ana rosa Notes: (Same No Longer as: Procrit) Active 018 [place] epoetin ana rosa [address]2614 unit/1 ml VL. For dialysis use only. (Procrit) WASTE: F/P - Red; E -Red MEDICATION WASTE Product Size: 21251 unit Product Wasted: ___ unit Clonidine 0.3 mg, PO, Active BID, [address] [place] [address] Refill(s) Acetaminophen 1 tab, PO, Active 300 MG / Q6H, PRN 018 [place] Codeine Pain, # 28 Phosphate 30 MG tab, 0 Oral Tablet Refill(s) [Tylenol with Codeine #3] ramipril 10 mg See Active oral capsule Instructions, 018 [place] and 1 cap PO Daily 30 day, 0 Refill(s) Clonidine Notes: (Same Inactive As: Catapres) [address] [place] [address] Hydralazine Notes: (Same No Longer Hydrochloride as: Active [address] [place] [address] 100 MG Oral Apresoline) Tablet May interfere w/enteral feedings Take With Food NIFEdipine 90 Notes: (Same No Longer mg oral tablet, as: Adalat Active 018 [place] and extended CC, Procardia release XL) Give on empty stomach. Take 1 hour before or 2 hours after meal; "Avoid grapefruit and grapefruit juice". Do not crush Hydralazine 5 mg, Route: Inactive IVP, ONCE, [address] [place] [address] Dosing Weight 65.909, kg, Start date: 11/25/17 19:59:00 CDT, Stop date: 11/25/17 19:59:00 CDT Lipitor 80 mg, PO, Active Daily, at [address] [place] [address] bedtime, 0 Refill(s) Sodium Chloride 1,000 mL, [...] Notes: (Same No Longer as: Active 018 [place] Apresoline) Push over 5 minutes Acetaminophen Notes: Do not No Longer exceed 4 Active 018 [place] gm/day. (Same as: Tylenol) Acetaminophen Notes: (Same No Longer 325 MG / as: [place] Active 018 [place] Hydrocodone 325/5) Do Bitartrate 5 MG not exceed Oral Tablet 4gm/day of acetaminophen . remove patch 1 patch, No Longer Route: TOP, Active 018 [place] Drug form: ERFILM, Q7D, Start date: 05/06/17 4:59:00 DELPHI PROGRAMMER, Duration: 30 day, Stop date: 06/03/17 9:00:00 CDT Clonidine 0.2 mg = 2 Active Hydrochloride tab, PO, BID, 018 [place] 0.1 MG Oral # 30 tab, 0 Tablet Refill(s), Pharmacy: [facility]/pharmacy #[id number] losartan 50 mg 100 mg = 2 Active oral tablet tab, PO, 018 [place] Q12H, # 30 tab, 0 Refill(s), Pharmacy: [facility]/pharmacy #[id number] Hydralazine 200 mg = 2 Active Hydrochloride tab, PO, TID, 018 [place] 100 MG Oral 0 Refill(s) Tablet Clonidine Notes: (Same Inactive Hydrochloride As: Catapres) 018 [place] 0.1 MG Oral Tablet normal saline 1,000 mL, Inactive MH 0.9% IV 1,000 Rate: 75 018 [place] mL ml/hr, Infuse over: 13.3 hr, Route: IV, Dosing Weight 68.5 kg, Total Volume: 1,000, Start date: 04/29/17 10:55:00 DELPHI PROGRAMMER, Duration: 30 day, Stop date: 05/29/17 10:54:00 CDT, 1.79, m2 Hydralazine 50 mg, 1 tab, Inactive Hydrochloride Route: PO, 018 [place] 50 MG Oral Drug form: Tablet TAB, TID, Dosing Weight 68.5, kg, Start date: 04/29/17 9:00:00 DELPHI PROGRAMMER, Duration: 30 day, Stop date: 05/28/17 17:00:00 DELPHI PROGRAMMER 168 HR Notes: Patch Inactive Clonidine delivers 0.1 018 [place] 0.38367 MG/HR mg/24 hours; Transdermal Patch is Patch applied weekly. "Remove old patch before application of new patch" (Same As: Catapres-TTS- 1) Kayexalate Notes: Inactive (sodium 018 [place] polystyrene sulfonate 15 gm/60 ml TRINITY) Shake well before use. (Same as: Kayexalate, SPS) sodium chloride 2,000 mL, 0 No Longer 0.9% (Priming ml/hr, Infuse Active 018 [place] and Over: 0 hr, Maintenance) Route: IV, 2,000, Drug form: INJ, PRN, Dosing Weight 68.5 kg, Start date: 04/28/17 11:40:00 DELPHI PROGRAMMER, Duration: 24 hr, Stop date: 04/29/17 11:39:00 DELPHI PROGRAMMER, For Use by Dialysis nurse ONLY, PRN Dialysis Hydralazine Notes: (Same No Longer as: Active 018 [place] Apresoline) Push over 5 minutes Clonidine Notes: (Same No Longer As: Catapres) Active 018 [place] Losartan Notes: (Same No Longer as: Cozaar) Active 018 [place] NIFEdipine 90 Notes: (Same No Longer mg oral tablet, as: Adalat Active 018 [place] and extended CC,Procardia release XL) "Do Not Crush" "Avoid grapefruit and grapefruit juice" Melatonin Notes: (Same No Longer as: Active 018 [place] Melatonin) Melatonin 2.5 2.5 mg, 1 Inactive mg oral capsule cap, Route: 018 [place] PO, Dosing Weight 68.5, kg, Bedtime, PRN as needed for insomnia, Start date: 04/25/17 17:50:00 DELPHI PROGRAMMER, Duration: 30 day, Stop date: 05/25/17 17:49:00 DELPHI PROGRAMMER heparin 10,000 unit, No Longer MH 10 mL, Route: Active 018 [place] DIALYSIS, Drug form: INJ, ONCALL, Dosing Weight 68.5, kg, PRN Dialysis, Start date: 04/25/17 7:45:00 DELPHI PROGRAMMER, Duration: 1 doses or times, Stop date: Limited # of times albumin human Notes: Lot #: No Longer MH 25% intravenous Active 018 [place] solution Mfg: (Same as: Plasbumin-25) "blood product derivative" WASTE: F/P - Red; E -Red MEDICATION WASTE Product Size: 25 gm Product Wasted: ___ gm normal saline 1,000 mL, No Longer MH 0.9% IV 1,000 Rate: 1 Active 018 [place] mL ml/hr, Infuse over: 1000 hr, Route: DIALYSIS, Dosing Weight 68.5 kg, Total Volume: 1,000, Priority: NOW, Start date: 04/25/17 7:43:00 DELPHI PROGRAMMER, Duration: 30 day, Stop date: 05/25/17 7:42:00 DELPHI PROGRAMMER, 1.79, m2 normal saline 1,000 mL, No Longer MH 0.9% IV 1,000 Rate: 1 Active 018 [place] mL ml/hr, Infuse over: 1000 hr, Route: DIALYSIS, Dosing Weight 68.5 kg, Total Volume: 1,000, Priority: NOW, Start date: 04/25/17 7:42:00 DELPHI PROGRAMMER, Duration: 30 day, Stop date: 05/25/17 7:41:00 DELPHI PROGRAMMER, 1.79, m2 Isosorbide Notes: (Same No Longer Dinitrate as:Isordil) Active 018 [place] Take on empty stomach/ full glass of water Epogen Notes: (Same No Longer as: Procrit) Active 018 [place] epoetin ana rosa 50134 unit/1 ml VL. For dialysis use only. (Procrit) WASTE: F/P - Red; E -Red MEDICATION WASTE Product Size: 53807 unit Product Wasted: ___ unit Sertraline Notes: (Same No Longer MH as: Zoloft) Active 018 [place] Doxazosin Notes: (Same No Longer MH as: Cardura) Active 018 [place] Docusate Sodium Notes: (Same No Longer M H 100 MG Oral as: Colace) Active 018 [place] Capsule (Do Not Crush) Vitamin D3 1000 Notes: Same No Longer MH intl units oral as : Vitamin Active 018 [place] tablet D3 Tums Notes: (Same No Longer MH As: Tums) Active 018 [place] Calcium Carbonate 500 mg = 200 mg elemental calcium Dose = mg calcium carbonate ( mg elemental calcium) Hydralazine Notes: (Same No Longer Hydrochloride as: Active Job [place] 100 MG Oral Apresoline) Tablet May interfere w/enteral feedings Take With Food heparin Notes: No Longer MH porcine Active 018 [place] heparin Plavix Notes: (Same No Longer MH As: Plavix) Active 018 [place] Aspirin Notes: Do not No Longer MH crush or Active 018 [place] chew. (Same As: Ecotrin) Hydralazine Notes: (Same Inactive MH as: 018 [place] Apresoline) May interfere w/enteral feedings Take With [...] 60 MG / Biotin QPM, 0 018 [place] 0.3 MG / Folic Refill(s) Acid 0.8 [...] Active oral tablet PO, QPM, 0 018 [place] Refill(s) losartan 50 mg 50 mg = 1 No Longer oral tablet tab, PO, QAM Active 018 [place] & PM, 0 Refill(s) Tums 1,000 mg, Active CHEW, QAM & 018 [place] PM, 0 Refill(s) Docusate Sodium 100 mg = 1 Active 100 MG Oral cap, PO, QAM 018 [place] Capsule & PM, 0 Refill(s) Vitamin D3 5000 5,000 Active intl units oral IntlUnit = 1 018 [place] capsule cap, PO, QPM, # 30 cap, 1 Refill(s) Hydralazine Notes: (Same No Longer as: Active 018 [place] Apresoline) Push over 5 minutes Labetalol 20 mg, 4 mL, Inactive Route: IVP, Job Leonardo Drug form: INJ, ONCE, Dosing Weight 68.5, kg, Start date: 04/22/17 3:57:00 DELPHI PROGRAMMER, Stop date: 04/22/17 3:57:00 DELPHI PROGRAMMER potassium Notes: (Same Inactive chloride 20 mEq as: K-Dur 20) 018 [place] oral tablet, "Do Not extended Crush" With release food and full glass of water Magnesium Notes: WASTE: Inactive Sulfate F/P - Sink; E 018 [place] - Municipal Trash Bin Isosorbide 90 mg, PO, Active Dinitrate QAM, 0 018 [place] Refill(s) Hydralazine 100 mg = 1 No Longer Hydrochloride tab, PO, TID, Active 018 [place] 100 MG Oral 0 Refill(s) Tablet clopidogrel 75 75 mg = 1 Active MG Oral Tablet tab, PO, QAM, 018 [place] [Plavix] 0 Refill(s) Aspirin 81 mg, PO, Active MH QAM, 0 018 [place] Refill(s) Hydralazine Notes: (Same Inactive as: 018 [place] Apresoline) Push over 5 minutes Insulin Lispro Notes: Roll No Longer MH in palms of Active 018 [place] hands gently; Do not shake `vigorously. (Same as: Humalog ) "Single Patient Use Only " WASTE: F/P - Black; E - Municipal Trash Bin Stable for 28 days at room temperature. Expires in days from _Date Dextrose 50% 12.5 gm, 25 No Longer MH Syringe mL, Route: Active 018 [place] IVP, Drug Form: INJ, Dosing Weight 68.5, kg, PRN, PRN Blood Glucose Results, Start date: 04/22/17 1:43:00 DELPHI PROGRAMMER, Duration: 30 day, Stop date: 05/22/17 1:42:00 DELPHI PROGRAMMER Glucagon 1 mg, Route: No Longer IM, Drug Active 018 [place] form: PDR/INJ, PRN, Dosing Weight 68.5, kg, PRN Blood Glucose Results, Start date: 04/22/17 1:43:00 DELPHI PROGRAMMER, Duration: 30 day, Stop date: 05/22/17 1:42:00 DELPHI PROGRAMMER NIFEdipine 60 Notes: (Same No Longer MH mg oral tablet, as: Adalat Active 018 [place] and extended CC, Procardia release XL) Give on empty stomach. Take 1 hour before or 2 hours after meal; "Avoid grapefruit and grapefruit juice". Do not crush Losartan Notes: (Same No Longer as: Cozaar) Active 018 [place] Acetaminophen Notes: Do not No Longer exceed 4 Active 018 [place] gm/day. (Same as: Tylenol) aspirin 81 mg [...] Active [facility] B complex and C mouth. [facility] (DIALYVITE 800 ORAL) Melatonin 5 mg Take [...] Data M H sup>1</sup> allergy migrated [facility] on 10/17/14. Originally documented as PENICILLIN . diazepam<sup Assertion Drug Active Data M H >2</sup> allergy migrated [place] from [employer] on 07/18/14. Originally documented as VALIUM. fexofenadine Assertion Drug Active Data M H <sup>3</sup> allergy migrated [place] from [employer] on 07/18/14. Originally documented as FANY ALLERGY. gatifloxacin Assertion Drug Active Data M H <sup>4</sup> allergy migrated [place] from [employer] on 07/18/14. Originally documented as TEQUIN. Tequin Assertion Drug Active MH allergy [place] DULoxetine<s Assertion Drug Active Data M H up>5</sup> allergy migrated [place] from [employer] on 07/18/14. Originally documented as CYMBALTA. Immunizations Immunization Date Given Site Status Last Comments Source Updated Hx influenza 12/23/2011 completed Result [place] vaccine-unspecifi Comment: flu ed<sup>1</sup> shot. Migrated from OBS ; Data migrated from [employer] on 04/22/2015. Results Order Name Results Value Reference Date Interpretation Comments Mandy rce Range CHEM PANEL eGFR 14 11/26 Result Comment: The [place] eGFR is calculated using the CKD-EPI formula. [...] Glucose Lvl 190 70 - 99 11/26 [place] CHEM PANEL BUN 22 7 - 22 11/26 [place] CHEM PANEL Creatinine 3.20 0.50 - 11/26 MH Lvl 1.40 [place] CHEM PANEL Sodium Lvl 134 135 - 145 09/08 /2017 [place] CHEM PANEL CO2 27 24 - 32 09/08 [place] CHEM PANEL Chloride Lvl 98 95 - 109 09/08 [place] CHEM PANEL Potassium 3.9 3.5 - 5.1 09/08 MH Lvl /2017 [place] CHEM PANEL AGAP 12.9 10.0 - 09/08 MH 20.0 [place] CHEM PANEL Calcium Lvl 8.1 8.5 - 10.5 09/08 /2017 [place] HEMATOLOGY Lymphocytes 0.7 1.0 - 5.5 09/08 MH # /2017 [place] HEMATOLOGY Eosinophils 0.1 0.0 - 0.5 09/08 MH # /2017 [place] HEMATOLOGY Monocytes # 0.5 0.0 - 0.8 09/08 [place] HEMATOLOGY Eosinophils 0.9 0.0 - 4.0 09/08 [place] HEMATOLOGY Monocytes 5.3 2.0 - 12.0 09/08 [place] HEMATOLOGY Neutrophils 7.3 1.5 - 8.1 09/08 MH # /2017 [place] HEMATOLOGY Basophils 0.6 0.0 - 1.0 09/08 /2017 [place] HEMATOLOGY Lymphocytes 8.4 20.0 - 09/08 MH 40.0 [place] HEMATOLOGY Segs 84.8 45.0 - 09/08 MH 75.0 [place] HEMATOLOGY Basophils # 0.1 0.0 - 0.2 09/08 [place] HEMATOLOGY MCHC 34.5 32.0 - 0908 MH 36.0 [place] HEMATOLOGY RDW 15.1 11.5 - 09/08 MH 14.5 [place] HEMATOLOGY Platelet 137 133 - 450 09/08 [place] HEMATOLOGY MPV 8.2 7.4 - 10.4 09/08 /2017 [place] HEMATOLOGY RBC 2.73 4.20 - 09/08 MH 5.40 [place] HEMATOLOGY Hgb 8.9 12.0 - 09/08 MH 16.0 [place] HEMATOLOGY Hct 25.9 36.0 - 09/08 MH 48.0 [place] HEMATOLOGY MCV 94.8 80.0 - 09/08 MH 98.0 [place] HEMATOLOGY MCH 32.7 27.0 - 09/08 MH 31.0 [place] HEMATOLOGY WBC 8.6 3.7 - 10.4 11/26 /2017 [place] BACTERIAL - MRSA by PCR Negative 11/26 SEROLOGY (11/26/17 12:49 AM) /2017 [place] and ANEMIA Folate Lvl 31.9 >=3.0 11/26 STUDY ng/mL /2017 [place] ANEMIA Vitamin B12 707 254 - 1320 11/26 STUDY Lvl /2017 [place] ANEMIA Ferritin Lvl 2302 5 - 204 11/26 STUDY /2017 [place] CHEM PANEL LDH 207 98 - 192 11/26 MH [place] CHEM PANEL Bili 0.2 0.0 - 1.0 11/26 Indirect /2017 [place] CHEM PANEL Bili Total 0.4 0.2 - 1.3 11/26 [place] CHEM PANEL Bili Direct 0.2 0.0 - 0.3 11/26 [place] HEMATOLOGY Retic Auto 1.6 0.5 - 1.5 11/26 [place] IMMUNOLOGY Homocyst Tot 25.8 3.7 - 13.9 11/26 [place] ORGANIC Disclaimer Comment 11/26 Result ACID (Org Acid) /2017 Comment: [place]
This test was developed and its performance characteristi cs
determ ined by [facility]. It has not been cleared or
approv ed by the Food and Drug Administratio n.
Perfor med At: [facility]
[address], [place] [id number]< br/>Dleicia Simeon MD Ph:[phone] ORGANIC MMA Qnt 572 0 - 378 11/26 ACID /2017 [place] BLOOD BANK RBC product Product available 1 11/25 Resul t MH RESULTS (11/25/17 6:45 PM) /2017 Comment: [place] 11/25/2017 18:46 [id number]
Blood available, notified Wilbert/ Evelyn at 11/25/2017 18:46_ by _LL. BLOOD BANK Antibody Negative 11/25 RESULTS Scrn (11/25/17 5:20 PM) /2017 [place] d BLOOD BANK RBC product Product available 2 11/25 Resul t MH RESULTS (11/25/17 5:20 PM) /2017 Comment: [place] 11/25/2017 19:32 [id number]
called to sandro for flower buncher or picker at 1923 11/25/2017 19:32 tb BLOOD BANK ABO/Rh A NEG 11/25 MH RESULTS [place] ELECTROLYTE AGAP 13.7 10.0 - 09 MH S 20.0 /2017 [place] ELECTROLYTE B/C Ratio 8 6 - 25 11/25 MH S [place] ELECTROLYTE A/G Ratio 0.8 0.7 - 1.6 11/25 MH S [place] ELECTROLYTE Globulin 3.9 2.7 - 4.2 11/25 MH S [place] ELECTROLYTE Chloride Lvl 101 95 - 109 11/25 MH S [place] ELECTROLYTE Sodium Lvl 138 135 - 145 11/25 MH S [place] ELECTROLYTE Potassium 3.7 3.5 - 5.1 11/25 MH S Lvl /2017 [place] ELECTROLYTE AST 31 0 - 37 11/25 MH S [place] ELECTROLYTE ALT 25 0 - 65 11/25 MH S [place] ELECTROLYTE Albumin Lvl 3.1 3.5 - 5.0 11/25 MH S [place] ELECTROLYTE Calcium Lvl 8.0 8.5 - 10.5 11/25 S [place] ELECTROLYTE CO2 27 24 - 32 11/25 MH S [place] ELECTROLYTE BUN 41 7 - 22 11/25 MH S [place] ELECTROLYTE Glucose Lvl 114 70 - 99 11/25 MH S [place] ELECTROLYTE Total 7.0 6.4 - 8.4 11/25 MH S Protein [place] ELECTROLYTE Creatinine 4.96 0.50 - 11/25 MH S Lvl 1.40 /2017 [place] ELECTROLYTE Bili Total 0.4 0.2 - 1.3 11/25 MH S [place] ELECTROLYTE Alk Phos 73 39 - 136 11/25 MH S [place] ELECTROLYTE eGFR 8 11/25 Result MH S Comment: The [place] eGFR is calculated using the CKD-EPI formula. [...] HEMATOLOGY WBC 6.3 3.7 - 10.4 11/25 [place] HEMATOLOGY RBC 1.95 4.20 - 11/25 MH 5.40 /2017 [place] HEMATOLOGY Hgb 6.3 12.0 - 11/25 Result MH 16.0 Comment: [place] Critical Result(s) called to [facility]/ at _11/25/2017 17:31 by_cg Read back OK. HEMATOLOGY Hct 18.3 36.0 - 11/25 Result 48.0 Comment: [place] Critical Result(s) called to [facility] at _11/25/2017 17:31 by_cg Read back OK. HEMATOLOGY MCHC 34.5 32.0 - 11/25 MH 36.0 /2017 [place] HEMATOLOGY MCH 32.4 27.0 - 11/25 MH 31.0 [place] HEMATOLOGY MCV 93.7 80.0 - 11/25 MH 98.0 /2017 [place] HEMATOLOGY MPV 8.1 7.4 - 10.4 11/25 [place] HEMATOLOGY Platelet 129 133 - 450 11/25 [place] HEMATOLOGY RDW 16.3 11.5 - 11/25 MH 14.5 [place] HEMATOLOGY Neutrophils 5.1 1.5 - 8.1 11/25 MH # /2018 [place] HEMATOLOGY Monocytes # 0.3 0.0 - 0.8 11/25 /2017 [place] HEMATOLOGY Lymphocytes 0.8 1.0 - 5.5 11/25 MH # /2018 [place] HEMATOLOGY Hypochrom 1+ None Seen 11/25 (11/25/17 5:20 PM) /2017 [facility] HEMATOLOGY Microcyte 1+ None Seen 11/25 MH *ABN* /2017 [place] (9/7/18 5:20 PM) HEMATOLOGY Anisocyte 1+ None Seen 11/25 MH *ABN* /2017 [place] (11/25/17 5:20 PM) HEMATOLOGY RBC Morph See Note 11/25 (11/25/17 5:20 PM) /[address] [facility] d HEMATOLOGY Segs 80.8 45.0 - 11/25 MH 75.0 [place] HEMATOLOGY Plt Morph Normal 11/25 (11/25/17 5:20 PM) /[address] [facility] d HEMATOLOGY Monocytes 5.5 2.0 - 12.0 11/25 [place] HEMATOLOGY Lymphocytes 13.0 20.0 - 11/25 MH 40.0 [place] HEMATOLOGY Basophils 0.5 0.0 - 1.0 11/25 [place] HEMATOLOGY Eosinophils 0.2 0.0 - 4.0 11/25 [place] HEMATOLOGY Spherocyte Occasional None Seen 11/25 MH *ABN* /2017 [place] (11/25/17 5:20 PM) HEMATOLOGY Tear Cell Few 11/25 [place] IMMUNOLOGY Hep Bs Ag Negative Negative 11/25 *NA* /2017 [place] (11/25/17 5:20 PM) ELECTROLYTE AGAP 10.8 10.0 - 04/29 MH S 20. [place] ELECTROLYTE eGFR 15 04/29 Result Comment: The [place] eGFR is calculated using the CKD-EPI formula. [...] 8.5 8.5 - 10.5 04/29 MH S [place] ELECTROLYTE Creatinine 3.11 0.50 - 02 MH S Lvl 1.40 /2017 [place] ELECTROLYTE Glucose Lvl 82 70 - 99 02/ MH S /2017 [place] ELECTROLYTE Sodium Lvl 135 135 - 145 02/ MH S /2017 [place] ELECTROLYTE Chloride Lvl 99 95 - 109 / MH S /2017 [place] ELECTROLYTE CO2 30 24 - 32 / MH S /2017 [place] ELECTROLYTE Potassium 4.8 3.5 - 5.1 02/ MH S Lvl /2017 [place] ELECTROLYTE BUN 19 7 - 22 02/ MH S /2017 [place] HEMATOLOGY Basophils 0.7 0.0 - 1.0 04/29 /2017 [place] HEMATOLOGY Eosinophils 1.3 0.0 - 4.0 04/29 /2017 [place] HEMATOLOGY Segs 74.6 45.0 - 02 MH 75.0 [place] HEMATOLOGY Monocytes # 0.4 0.0 - 0.8 04/29 [place] HEMATOLOGY Segs-Bands # 3.9 1.5 - 8.1 04/29 /2017 [place] HEMATOLOGY Lymphocytes 0.8 1.0 - 5.5 04/29 MH # /2017 [place] HEMATOLOGY Eosinophils 0.1 0.0 - 0.5 04/29 MH # /2017 [place] HEMATOLOGY Lymphocytes 15.1 20.0 - 02 MH 40.0 [place] HEMATOLOGY Monocytes 8.3 2.0 - 12.0 04/29 [place] HEMATOLOGY RDW 14.7 11.5 - 04/29 MH 14.5 [place] HEMATOLOGY Platelet 204 133 - 450 04/29 [place] HEMATOLOGY MPV 8.5 7.4 - 10.4 04/29 [place] HEMATOLOGY MCV 96.8 80.0 - 04/29 MH 98.0 [place] HEMATOLOGY Hct 28.5 36.0 - 02 MH 48.0 [place] HEMATOLOGY MCHC 35.6 32.0 - 02/ MH 36.0 [place] HEMATOLOGY MCH 34.4 27.0 - 02/ MH 31.0 [place] HEMATOLOGY WBC 5.2 3.7 - 10.4 04/29 [place] HEMATOLOGY RBC 2.94 4.20 - 02 MH 5.40 [place] HEMATOLOGY Hgb 10.1 12.0 - 02 MH 16.0 [place] ELECTROLYTE Potassium 5.3 3.5 - 5.1 04/28 S Lvl /2017 [place] BLOOD BANK ABO/Rh A NEG 04/28 RESULTS /2017 [place] BLOOD BANK Antibody Negative 04/28 RESULTS Scrn (04/28/17 7:30 AM) [place] BLOOD BANK RBC product Product available 1 04/28 Resul t MH RESULTS (04/28/17 7:00 AM) Comment: [place] 04/28/2017 09:20 [id number]
Blood available, notified Ravi Deleon at 04/28/2017 09:19 by VV. CHEM PANEL eGFR 9 04/28 Result Comment: The [place] eGFR is calculated using the CKD-EPI formula. [...] Calcium Lvl 8.2 8.5 - 10.5 04/28 [place] CHEM PANEL CO2 29 24 - 32 04/28 [place] CHEM PANEL Sodium Lvl 130 135 - 145 04/28 [place] CHEM PANEL Chloride Lvl 97 95 - 109 04/28 [place] CHEM PANEL Potassium 5.7 3.5 - 5.1 04/28 Lvl [place] CHEM PANEL BUN 37 7 - 22 04/28 [place] CHEM PANEL Glucose Lvl 87 70 - 99 04/28 [place] CHEM PANEL Creatinine 4.70 0.50 - 02 Lvl 1.40 [place] CHEM PANEL AGAP 9.7 10.0 - 02/08 MH 20.0 /2017 [place] HEMATOLOGY Platelet 176 133 - 450 02 MH [place] HEMATOLOGY MPV 8.1 7.4 - 10.4 02 MH /2017 [place] HEMATOLOGY RDW 13.6 11.5 - 02/ MH 14.5 /2017 [place] HEMATOLOGY MCH 34.9 27.0 - 02/08 MH 31.0 /2017 [place] HEMATOLOGY MCHC 35.4 32.0 - 02/ MH 36.0 /2017 [place] HEMATOLOGY Hgb 6.5 12.0 - 02/08 Result MH 16.0 /2017 Comment: [place] Critical Result(s) called to andrew fuentes at 04/28/2017 04:20 by rush. Read back OK. HEMATOLOGY MCV 98.6 80.0 - 02 MH 98.0 [place] HEMATOLOGY Hct 18.5 36.0 - 0208 Result 48.0 Comment: [place] Critical Result(s) called to andrew fuentes at 04/28/2017 04:20 by gg. Read back OK. HEMATOLOGY WBC 4.2 3.7 - 10.4 04/28 [place] HEMATOLOGY RBC 1.87 4.20 - 0208 MH 5.40 /2017 [place] HEMATOLOGY Monocytes # 0.4 0.0 - 0.8 04/28 MH [place] HEMATOLOGY Eosinophils 0.1 0.0 - 0.5 /08 MH # /2017 [place] HEMATOLOGY Segs-Bands # 2.7 1.5 - 8.1 04/28 [place] HEMATOLOGY Lymphocytes 1.0 1.0 - 5.5 02/08 MH # /2017 [place] HEMATOLOGY Lymphocytes 24.2 20.0 - 02/08 MH 40.0 [place] HEMATOLOGY Segs 64.0 45.0 - 02/08 MH 75.0 /2018 [place] HEMATOLOGY Monocytes 8.8 2.0 - 12.0 /08 MH [place] HEMATOLOGY Eosinophils 2.1 0.0 - 4.0 /08 MH [place] HEMATOLOGY Basophils 0.9 0.0 - 1.0 02/ MH /2017 [place] HEMATOLOGY WBC 4.2 3.7 - 10.4 02/ MH [place] HEMATOLOGY Hct 19.3 36.0 - 02/08 Result MH 48.0 /2018 Comment: [place] Critical Result(s) called to Elle Fuentes RN at 04/27/2017 20:13 by GN. Read back OK. HEMATOLOGY MCV 98.8 80.0 - 02/ MH 98.0 /2017 [place] HEMATOLOGY Hgb 7.0 12.0 - 08 Result MH 16.0 Comment: [place] Critical Result(s) called to Elle Fuentes RN at 04/27/2017 20:12 by GNF. Read back OK. HEMATOLOGY MCH 35.6 27.0 - 02/08 MH 31.0 /2017 [place] HEMATOLOGY RBC 1.95 4.20 - 02/08 MH 5.40 /2017 [place] HEMATOLOGY MPV 8.6 7.4 - 10.4 / MH /2017 [place] HEMATOLOGY Platelet 183 133 - 450 02 MH /2017 [place] HEMATOLOGY MCHC 36.0 32.0 - 02/08 MH 36.0 /2017 [place] HEMATOLOGY RDW 13.8 11.5 - 02 MH 14.5 [place] ELECTROLYTE Chloride Lvl 97 95 - 109 02/ S /2017 [place] ELECTROLYTE Sodium Lvl 133 135 - 145 02/ S /2017 [place] ELECTROLYTE Creatinine 3.24 0.50 - 02 S Lvl 1.40 /2017 [place] ELECTROLYTE CO2 31 24 - 32 02/ MH S /2017 [place] ELECTROLYTE Calcium Lvl 8.4 8.5 - 10.5 02 MH S /2017 [place] ELECTROLYTE AGAP 9.2 10.0 - 02/06 MH S 20.0 [place] ELECTROLYTE Glucose Lvl 75 70 - 99 04/26 MH S /2017 [place] ELECTROLYTE BUN 22 7 - 22 02/ S /2017 [place] ELECTROLYTE eGFR 14 02 Result S Comment: The [place] eGFR is calculated using the CKD-EPI formula. [...] Bs Ag Negative Negative 04/22 *NA* /2017 [place] (04/22/17 9:31 AM) ANEMIA TRANSFERRIN 124 212 - 360 04/22 STUDY [place] ANEMIA Ferritin Lvl 1690 5 - 204 04/22 STUDY [place] ANEMIA % Satur Fe 16 12 - 57 04/22 [place] ANEMIA UIBC 128 110 - 370 04/22 [place] ANEMIA TIBC 153 228 - 428 04/22 STUDY [place] ANEMIA Iron 25 30 - 160 04/22 [place] CARDIAC Troponin-I 0.06 0.00 - 04/22 ENZYMES 0.40 [place] CARDIAC Total CK 70 12 - 191 04/22 ENZYMES [place] CARDIAC proBNP 33431 0 - 450 04/22 ENZYMES [place] CHEM PANEL Phosphorus 2.4 2.5 - 4.5 04/22 [place] CHEM PANEL Magnesium 2.2 1.8 - 2.4 04/22 Lvl [place] CHEM PANEL B/C Ratio 7 6 - 25 04/22 [place] CHEM PANEL A/G Ratio 1.0 0.7 - 1.6 04/22 [place] CHEM PANEL Globulin 2.9 2.7 - 4.2 04/22 [place] CHEM PANEL Albumin Lvl 2.9 3.5 - 5.0 04/22 [place] CHEM PANEL Bili Total 0.6 0.2 - 1.3 04/22 [place] CHEM PANEL AST 18 0 - 37 04/22 [place] CHEM PANEL ALT 16 0 - 65 04/22 [place] CHEM PANEL Alk Phos 69 39 - 136 04/22 [place] CHEM PANEL Total 5.8 6.4 - 8.4 04/22 Protein [place] HEMATOLOGY Monocytes # 0.5 0.0 - 0.8 04/22 [place] HEMATOLOGY Lymphocytes 0.6 1.0 - 5.5 / MH # /2018 [place] HEMATOLOGY Segs 83.9 45.0 - / MH 75.0 /2018 [place] HEMATOLOGY Basophils 0.5 0.0 - 1.0 04/22 [place] HEMATOLOGY Eosinophils 0.7 0.0 - 4.0 / MH /2017 [place] HEMATOLOGY Lymphocytes 8.2 20.0 - 02/ MH 40.0 /2018 [place] HEMATOLOGY Monocytes 6.7 2.0 - 12.0 04/22 [place] HEMATOLOGY Segs-Bands # 5.7 1.5 - 8.1 / MH /2018 [place] HEMATOLOGY INR 1.12 0.85 - 04/22 MH 1.17 /2017 [place] HEMATOLOGY PT 14.4 12.0 - 04/22 MH 14.7 [place] HEMATOLOGY PTT 34.0 22.9 - 04/22 MH 35.8 /2017 [place] CARDIAC Troponin-I 0.04 0.00 - 04/22 ENZYMES 0.40 /2017 [place] CARDIAC Total CK 85 12 - 191 04/22 ENZYMES [place] CARDIAC CK MB Index <0.6 0.0 - 2.5 04/22 ENZYMES /2017 [place] CARDIAC CK MB <0.5 0.5 - 3.6 04/22 ENZYMES /2017 [place] BACTERIAL - MRSA by PCR Negative 04/22 [facility] (04/22/17 2:38 AM) [facility] CHEM PANEL AST 18 0 - 37 04/22 [place] CHEM PANEL Alk Phos 74 39 - 136 04/22 [place] CHEM PANEL Bili Total 0.7 0.2 - 1.3 04/22 [place] CHEM PANEL Albumin Lvl 3.1 3.5 - 5.0 04/22 [place] CHEM PANEL Total 6.9 6.4 - 8.4 04/22 Protein [place] CHEM PANEL Globulin 3.8 2.7 - 4.2 04/22 [place] CHEM PANEL A/G Ratio 0.8 0.7 - 1.6 04/22 [place] CHEM PANEL ALT 14 0 - 65 04/22 [place] CHEM PANEL B/C Ratio 7 6 - 25 04/22 [place] CHEM PANEL Magnesium 1.9 1.8 - 2.4 / Lvl /2018 [place] HEMATOLOGY INR 1.10 0.85 - 02 MH 1.17 /2017 [place] HEMATOLOGY PT 14.2 12.0 - 02 MH 14.7 /2017 [place] HEMATOLOGY PTT 37.7 22.9 - 02 MH 35.8 /2018 [place] HEMATOLOGY Eosinophils 0.1 0.0 - 0.5 04/22 MH # /2018 [place] Pathology Reports No Data Provided for This Section Diagnostic Reports Report Value Date Source Chest 2 views DX EXAM: Chest 2 views DX 04/27/[address] [facility] DATE: 04/27/2017 7:21 PM DELPHI PROGRAMMER INDICATION: - Shortness of Breath COMPARISON: None. [...] Comments Source Systolic (mm Hg) 172 11/28/2018 [facility] Health Diastolic (mm Hg) 59 11/28/2018 [facility] h Heart Rate 90 11/28/2018 [facility] Health Temperature Oral (F) 36.83 Jeanna 11/28/2018 [facility] alth Respitory Rate 18 11/28/2018 [facility] Height 167.6 cm 11/28/2018 [facility] Health Weight 68.947 11/28/2018 [facility] Health Systolic (mm Hg) 97 10/17/2018 [facility] Health Diastolic (mm Hg) 47 10/17/2018 [facility] Heart Rate 85 10/17/2018 [facility] Temperature Oral (F) 37 Jeanna 10/17/2018 [facility] He alth Respitory Rate 18 10/17/2018 [facility] Health Height 165.1 cm 10/17/2018 [facility] Health Weight 68.947 10/17/2018 [facility] Systolic (mm Hg) 137 11/27/2017 [facility] Diastolic (mm Hg) 58 11/27/2017 [place] Respitory Rate 18 11/27/2017 [facility] Respitory Rate 16 11/26/2017 [facility] Systolic (mm Hg) 120 11/26/2017 [facility] [place] Diastolic (mm Hg) 100 11/26/2017 [facility] [place] Systolic (mm Hg) 131 11/26/2017 MH [place] Diastolic (mm Hg) 54 11/26/2017 [facility] [place] Respitory Rate 17 11/26/2017 [facility] [place] Temperature Oral (F) 98.0 F 11/26/2017 [facility] [place] Temperature Oral (F) 97.6 F 11/26/2017 [facility] [place] Temperature Oral (F) 98.5 F 11/26/2017 [facility] [place] Heart Rate 75 11/26/2017 [place] Heart Rate 83 11/25/2017 [place] BMI Calculated 24.18 11/25/2017 [place] Weight 65.909 11/25/2017 [place] Height 165.1 cm 11/25/2017 [place] Heart Rate 86 11/25/2017 [place] Heart Rate 66 04/29/2017 [place] Systolic (mm Hg) 173 04/29/2017 MH [place] Diastolic (mm Hg) 50 04/29/2017 [place] Systolic (mm Hg) 176 04/29/2017 MH [place] Diastolic (mm Hg) 50 04/29/2017 [facility] [place] Respitory Rate 17 04/29/2017 [place] Heart Rate 57 04/29/2017 MH [place] Temperature Oral (F) 98.4 F 04/29/2017 [place] Temperature Oral (F) 97.8 F 04/29/2017 [place] Heart Rate 57 04/29/2017 [place] Respitory Rate 16 04/29/2017 [place] Systolic (mm Hg) 159 04/29/2017 [place] Diastolic (mm Hg) 75 04/29/2017 [place] Respitory Rate 16 04/29/2017 [place] Temperature Oral (F) 98.4 F 04/29/2017 [place] BMI Calculated 25.13 04/22/2017 [place] Weight 68.5 04/22/2017 [place] Height 165.1 cm 04/22/2017 [place] BMI Calculated 25.13 04/22/2017 [place] Weight 68.5 04/22/2017 [place] Height 165.1 cm 04/22/2017 [place] Height 165.1 cm 04/22/2017 [place] Encounters Location Location Encounter Encounter Reason Attending ADM [place] Stat us Source Details Type Number For Provider Date Date Visit [facility] [id number] Gregg 04/22 04/30 KEVON Sandra /2017 [facility] Inpatient [id number] Bruno 11/25 11/27 KEVON Jones /2017 [facility] Office [id number] Silvana 10/17 10/17 [facility] Health Visit [facility] DE [facility] SANTOS [id number] Silvana 11/28 [facility] Health (Out) [facility] [id number] Silvana 11/28 11/28 [facility] Health Visit Yana DE LOS SANTOS /2018 [facility] Procedure Code Date Perfomer Comments Source Bilateral extraction [id number] Jorden of cataracts Caesarean section 05495129 [place] Carotid angiogram [id number] [place] Cholecystectomy [id number] [place]y nd Provision of stents 88786239 Kidney Pe ar[place] or bite stents blocks<sup>1</sup> [...] Tuesday. Access left upper extremity AV fistula. Certified Phlebotomist Dr. Guardado. No hyperkalemia. Euvolemic. S/p Urgent [...] for HD today. Any question please call [phone] Extracted from:Title: Nephrology consultation. Author: Eliseo Schultz MD Date: 11/25/17 Impression and Plan 87-year-old female with history of hyper tension, diabetes, end-stage renal disease on hemodialysis, congestive heart failure, chronic anemia, who presented to emergency room complaining of shortness of breath. 1. End-stage renal disease on hemodialy sis. Hemodialysis on Tuesday and Tuesday. Last hemodialysis last Tuesday. Access left upper extremity AV fistula. Certified Phlebotomist Dr. Guardado. No hyperkalemia. Clinically hypervolemic. 2. Severe anemia. 3. Fluid overload. 4. Chronic congestive heart failure. 5. Diabetes mellitus type 2. 6. Thrombocytopenia. Recommendation. Stat hemodialysis with transfusion of 2 units of packed RBC. Epogen 7,000 units subcutaneous 3 times daily. Anemia workup. Discussed case with Dr. Jones. Thank you for the consultation, any question please call [phone] Extracted from:Title: History and Physical Author: Bruno [...] home medications, uncontrolle dpatient was transferred to [facility] for further blood pressure monitoring. 6.Diabetes mellitus [...] in the emergency room at [facility]. Tra nsfer for fluid overload and [...] Care Date Source INFLUENZA VACCINE (#1) 2018 [facility] Upcoming EncountersDateTypeSpecialtyCare TeamDescription [facility] 11/28/2018 Office Visit Vascular Surgery Silvana Millan MD[address] [place] [address] [phone] (Fax) Health MaintenanceDue DateLast DoneComments DTaP,Tdap,and Td Vaccines (1 - Tdap) 1949 Zoster Recombinant Vaccine (SHINGRIX) (1 of 2) 1980 Medicare Wellness Visit 09/27/1995 Osteoporosis Screening 09/27/1995 PNEUMOCOCCAL VACCINES 65+ (1 of 2 - PCV13) 09/27/1995 INFLUENZA VACCINE 11/19/2018 documented as of this encounter Medicare Wellness Visit 09/27/1995 [facility] Zoster Recombinant Vaccine (SHINGRIX) (1 of 2) 1980 [facility] DTaP,Tdap,and Td Vaccines (1 - Tdap) 1949 [facility] Health Social History Social History Date Source Tobacco UseTypesPacks/DayYears UsedDate 11/28/2018 [facility] Never Smoker Smokeless Tobacco: Never Used [...]
--- OUTSIDE RECORDS SUMMARY | 2019-08-19 02:46 | XMS REPORT ---
:1930 Author Organization [facility] t Address [address] [place] [address] Care Team Providers Name Role Phone Raudel Marie MD Primary Care Physician Nat HUMPHREY Attending Clinician Unavailable Yana DE LOS SANTOS Attending Clinician Robert Attending Clinician Jocy Attending Clinician Nat HUMPHREY Admitting Clinician Unavailable Robert Admitting Clinician Jocy Admitting Clinician Problems Condition Condition Condition Status Onset Resolution Last Treating Co mments Source Name Details Category Date Date Treatment Clinician Date Dialysis Condition Active 2018-11-28 [facility] AV fistula -24 23:24:39 [facility] malfunctio Dialysis 00:00: n, initial AV fistula 00 encounter malfunctio n, initial encounter Active 07/12/2018 11/28/2018 [facility] CHF, Diagnosis Active 2017-12-23 Mem oria SYMPTOMATI 11-25 11:55:00 l C ANEMIA CHF, 00:00: [place] SYMPTOMATI 00 C ANEMIA Active 11/25/2017 [facility] CHF Diagnosis Active 2017-04-21 Mem oria EXACERBATI 04-21 23:00:00 l ON CHF 00:00: [place] EXACERBATI 00 ON Active 8 [facility] ACUTE Diagnosis Active 2017-05-03 Mem oria CONGESTIVE 2-01 21:59:00 l HEART ACUTE 00:00: [place] FAILURE, CONGESTIVE 00 ESRD HEART FAILURE, ESRD Active 04/21/2017 [facility] [place] Hip pain Problem Active 2012-032018-06-15 (finding) 0-16 12:10:10 Vonnie an Hip pain 00:00: d (finding) 00 Active 01/03/2013 Problem 06/15/2018 Data migrated from [facility] [place] on 08/17/14. [facility] Iron Problem Active 2012-032018-06-15 deficiency 0-09 12:10:10 [place] anemia Iron 00:00: d (disorder) deficiency 00 anemia (disorder) Active 12/27/2012 Problem 06/15/2018 Data migrated from [facility] [place] on 08/17/14. [facility] Loss of Problem Active 2012-032018-06-15 appetite 0-09 12:10:10 [place] n (finding) Loss of 00:00: d appetite 00 (finding) Active 12/27/2012 Problem 06/15/2018 Data migrated from [facility] on 08/17/14. [facility] Gastroesop Problem Active 2018-06-15 M H hageal 6-10 12:10:10 [place] reflux 00:00: d disease Gastroesop 00 (disorder) hageal reflux disease (disorder) Active 08/28/2012 Problem 06/15/2018 Data migrated from [facility] on 08/17/14. [facility] Lung mass Problem Active 2018-06-15 (finding) 2-13 12:10:10 Vonnie an Lung 00:00: d mass 00 (finding) Active 05/03/2012 Problem 06/15/2018 Data migrated from [facility] on 08/17/14. [facility] Thyroid Problem Active 2018-06-15 nodule 2-13 12:10:10 [place] (disorder) Thyroid 00:00: d nodule 00 (disorder) Active 05/03/2012 Problem 06/15/2018 Data migrated from [place] on 08/17/14. [facility] Osteoarthr Problem Active 2011-032018-06-15 M H itis of 0-17 12:10:10 [place] knee 00:00: d (disorder) Osteoarthr 00 itis of knee (disorder) Active 01/05/2012 Problem 06/15/[address] [facility] on 08/17/14. [facility] Long-term Problem Active 2018-06-15 drug 8-13 12:10:10 [place] therapy 00:00: d (procedure Long-term 00 ) drug therapy (procedure ) Active 11/01/2011 Problem 06/15/[address] [facility] on 08/17/14. [facility] Malaise Problem Active 2018-06-15 and 8-13 12:10:10 [place] fatigue Malaise 00:00: d (finding) and 00 fatigue (finding) Active 11/01/2011 Problem 06/15/[address] [facility] on 08/17/14. [facility] Abnormal Problem Active 2018-06-15 cytology 10-17 12:10:10 Rosy n findings Abnormal 00:00: d (finding) cytology 00 findings (finding) Active 10/18/2011 Problem 06/15/[address] [facility] on 08/17/14. [facility] Follow up Diagnosis Active 2018-10-17 [facility] 16:39:56 Health Follow up Active 10/17/2018 [facility] Health ESRD (end Diagnosis Active 2018-11-28 [facility] stage 23:24:39 Health renal ESRD disease) (end stage renal disease) Active 9 [facility] Health End stage Problem 2018-06-15 renal 12:10:10 [place] disease End d stage renal disease 06/15/2018 [facility] Hypertensi Problem 2018-06-15 M H ve heart 12:10:10 [place] n and d chronic Hypertensi kidney ve heart disease and with heart chronic failure kidney and with disease stage 5 with heart chronic failure kidney and with disease, stage 5 or end chronic stage kidney renal disease, disease or end stage renal disease 06/15/2018 [facility] Hypo-osmol Problem 2018-06-15 M H ality and 12:10:10 Vonnie an hyponatrem d ia Hypo-osmol ality and hyponatrem ia 06/15/2018 [facility] Nontoxic Problem 2018-06-15 single 12:10:10 [place] thyroid Nontoxic d nodule single thyroid nodule 06/15/2018 [facility] Type 2 Problem 2018-06-15 diabetes 12:10:10 [place] n mellitus 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 06/15/2018 [facility] Pure Problem 2018-06-15 hyperchole 12:10:10 [place] sterolemia Pure d , hyperchole unspecifie sterolemia d , unspecifie d 06/15/2018 [facility] Heart Problem 2018-06-15 failure, 12:10:10 [place] unspecifie Heart d d failure, unspecifie d 06/15/2018 [facility] Unilateral Problem 2018-06-15 M H primary 12:10:10 [place] osteoarthr d itis, Unilateral unspecifie primary d knee osteoarthr itis, unspecifie d knee 06/15/2018 [facility] Anemia in Problem 2018-06-15 other 12:10:10 [place] chronic Anemia d diseases in other classified chronic elsewhere diseases classified elsewhere 06/15/2018 [facility] Thrombocyt Problem 2018-06-15 M H openia, 12:10:10 [place] unspecifie d d Thrombocyt openia, unspecifie d 06/15/2018 [facility] Hypertensi Problem 2018-06-15 M H ve urgency 12:10:10 [place] rob[place] d Hypertensi ve urgency 06/15/2018 [facility] Gastro-eso Problem 2018-06-15 M H phageal 12:10:10 [place] reflux d disease Gastro-eso without phageal esophagiti reflux s disease without esophagiti s 06/15/2018 [facility] Nicotine Problem 2018-06-15 dependence 12:10:10 [place] rob[place] , Nicotine d cigarettes dependence , , uncomplica cigarettes memo , uncomplica memo 06/15/2018 [facility] Dependence Problem 2018-06-15 M H on renal 12:10:10 [place] n dialysis d Dependence on renal dialysis 06/15/2018 [facility] Benign Problem Active 2018-06-15 hypertensi 12:10:10 [place] on Benign d (disorder) hypertensi on (disorder) Active Problem 06/15/[address] [facility] on 08/17/14. [facility] Constipati Problem Active 2018-06-15 M H on 12:10:10 [place] (disorder) d Constipati on (disorder) Active Problem 06/15/[address] [facility] on 08/17/14. [facility] Diabetes Problem Active 2018-06-15 mellitus 12:10:10 [place] (disorder) Diabetes d mellitus (disorder) Active Problem 06/15/[address] [facility] on 08/17/14. [facility] Hyperchole Problem Active 2018-06-15 M H sterolemia 12:10:10 [place] (disorder) d Hyperchole sterolemia (disorder) Active Problem 06/15/[address] [facility] on 08/17/14. [facility] Impaired Problem Active 2018-06-15 glucose 12:10:10 [place] tolerance Impaired d (disorder) glucose tolerance (disorder) Active Problem 06/15/[address] [facility] on 08/17/14. [facility] Acute Problem 2017-08-05 respirator 12:26:41 [place] robby y failure Acute d with respirator hypoxia y failure with hypoxia 08/05/2017 [facility] Acute on Problem 2017-08-05 chronic 12:26:41 [place] diastolic Acute on d (congestiv chronic e) heart diastolic failure (congestiv e) heart failure 08/05/2017 [facility] Patient's Problem 2017-08-05 noncomplia 12:26:41 Pear robby nce with d other Patient's medical noncomplia treatment nce with and other regimen medical treatment and regimen 08/05/2017 [facility] Anemia in Problem 2017-08-05 chronic 12:26:41 [place] kidney Anemia d disease in chronic kidney disease 08/05/2017 [facility] Other Problem 2017-08-05 malaise 12:26:41 [place] Other d malaise 08/05/2017 [facility] Personal Problem 2017-08-05 history of 12:26:41 [place] rob[place] nicotine Personal d dependence history of nicotine dependence 08/05/2017 [facility] HEART Diagnosis Active 2017-12-23 Mem oria FAILURE, 11:55:00 l UNSPECIFIE HEART Sandy nn D FAILURE, UNSPECIFIE D Active [facility] ACUTE Diagnosis Active 2017-05-03 Mem oria DIASTOLIC 21:59:00 l (CONGESTIV ACUTE Sandy nn E) HEART DIASTOLIC FAILU (CONGESTIV E) HEART FAILU Active [facility] Anemia, Problem 2017-2018-06-15 2018-06-15 unspecifie 04-19 12:10:10 12:10:10 Pe francy d Anemia, 06:06: d unspecifie 01 d 02/17/2018 06/15/2018 [facility] Allergies, Adverse Reactions, Alerts Allergy Allergy Status Severity Reaction(s) Onset Inactive Treating Comm ents Source Name Type Date Date Clinician Fexofena Fexofena Active Nausea 2019-0 Memori a dine Hcl dine Hcl and/or 2-26 l Vomiting 00:00: [facility] Ciproflo Ciproflo Active Nausea 2019-0 Memori a xacin xacin and/or 2-26 l (Bulk) (Bulk) Vomiting 00:00: [facility] Penicill Penicill Active Rash 2019-0 Memori a ins ins 2-26 l 00:00: [facility] Sulfa Sulfa Active Nausea 2019-0 Memoria (Sulfona (Sulfona and/or 2-26 l mide mide Vomiting 00:00: [place] Antibiot Antibiot [address] [place] [address] e ics) ics) [facility] Fexofena Propensi Active Other (See Karlene - Whittaker dine ty to Comments) 09-24 "makes Methodi adverse 00:00: her sick" st reaction 00 per pt s to daughter drug Ciproflo Propensi Active Other (See Ciproflox Whittaker xacin ty to Comments) 09-24 acin - [...] pt s to and pt drug daughter penicill penicill Active Memori a ins<sup> ins<sup> l 1</sup> 1</sup> [facility] diazepam diazepam Active Memori a <sup>2</ <sup>2</ l sup> sup> [facility] fexofena fexofena Active Memori a dine<sup dine<sup l >3</sup> >3</sup> [facility] Tequin Tequin Active Memoria l [facility] DULoxeti DULoxeti Active Memori a ne<sup>5 ne<sup>5 l </sup> </sup> [facility] Social History Social Habit Start Date Stop Date Quantity Comments Source Sex Assigned At [facility] ethodist Alcohol intake 2015-09-30 2015-09-30 Current [facility] thodist 00:00:00 00:00:00 non-drinker of alcohol (finding) Smoking Status Start Date Stop Date Source Tobacco smoking status [facility] Social History 2017-11-25 22:03:08 2017-11-25 22:03:08 [facility] Medications Ordered Filled Start Stop Current Ordering Indication Dosage Frequency Signature Comments Components Source Medication Medication Date Date Medication? Clinician (SIG) Name Name aspirin 81 Yes Take 81 mg [facility] mg chewable 9-10 by mouth Heal th tablet 23:24: daily. 39 clopidogrel Yes Take 75 mg [facility] (PLAVIX) 75 9-10 by mouth Heal th mg tablet 23:24: daily. 39 hydralAZINE Yes Take 100 [facility] 100 mg 9-10 mg by Health tablet 23:24: mouth 39 every 6 (six) hours. isosorbide Yes Take 90 mg [facility] mononitrate 9-10 by mouth. Hea lth 30 mg 24 hr 23:24: tablet 39 NIFEdipine Yes Take 90 mg [facility] XL 90 mg 24 9-10 by mouth 2 He alth hr tablet 23:24: (two) 39 times daily. cloniDINE 2018- Yes Take 0.3 [facility] 0.3 mg 9-10 mg by Health tablet 23:24: mouth 2 39 (two) times daily. doxazosin 8 Yes Take 8 mg [facility] mg tablet 9-10 by mouth 2 Heal th 23:24: (two) 39 times daily. docusate 2018- Yes Take 100 [facility] 100 mg 9-10 mg by Health capsule 23:24: mouth 2 39 (two) times daily. calcium 2018- Yes Take 1,000 [facility] carbonate 9-10 mg by Health (TUMS ORAL) 23:24: mouth 2 39 (two) times daily. vitamin 2018- Yes Take 1,000 [facility] B-12 9-10 mcg by Health (VITAMIN 23:24: mouth B-12) 1,000 39 daily. mcg tablet atorvastati Yes Take 80 mg [facility] n (LIPITOR) 9-10 by mouth Heal th 80 mg 23:24: at tablet 39 bedtime. ramipril 10 Yes Take 10 mg [facility] mg capsule 9-10 by mouth Healt h 23:24: daily. 39 SERTraline Yes Take 50 mg [facility] 50 mg 9-10 by mouth Health tablet 23:24: daily. 39 folic Yes Take by [facility] acid/vit B 9-10 mouth. Health complex and 23:24: C 39 (DIALYVITE 800 ORAL) Melatonin 5 Yes Take by [facility] mg Cap 9-10 mouth. Health 23:24: 39 Cholecalcif Yes Take 5,000 [facility] sarahy, 9-10 Units by [facility] Vitamin D3, 23:24: mouth (VITAMIN 39 daily. D3) 5,000 unit tablet CEPHALEXIN Yes Take 500 [facility] B ORAL 9-10 mg by Health 23:24: mouth 3 39 (three) times daily. Indication s: UTI for 10 days. On 08/28 day traMADol 50 Yes Take 1 [facility] mg tablet 7-23 tablet by Healt h 00:00: mouth 00 every 6 (six) hours as needed for Pain (scale 7-10). Hydralazine No Notes: Hydrochlori 11-27 (Same as: Pea rlan de 100 MG 05:00: Apresoline d Oral Tablet 00 ) May interfere w/enteral feedings Take With Food Hydralazine Yes 100 mg = 1 Hydrochlori 11-27 tab, PO, Pear robby de 100 MG 00:11: Q8H, # 90 d Oral Tablet 00 tab, 2 Refill(s), Pharmacy: [id number] Doxazosin No Notes: MH 11-26 (Same as: [place] 14:00: Cardura) d 00 Clonidine No Notes: Hydrochlori 11-26 (Same As: Pea rlan de 0.3 MG 14:00: Catapres) d Oral Tablet 00 isosorbide No Notes: mononitrate 11-26 (Same [place] extended 14:00: as:Imdur) d release 00 "Do Not Crush" Take on empty stomach/ full glass of water. Do not crush Plavix No Notes: 11-26 (Same As: [place] 14:00: Plavix) d 00 Aspirin No Notes: Do 11-26 not crush [place] 14:00: or chew. d 00 (Same As: Ecotrin) Epogen No Notes: 11-26 (Same as: [place] 04:00: Procrit) d 00 epoetin ana rosa 3000 unit/1 ml VL. For dialysis use only WASTE: F/P - Red; E -Red MEDICATION WASTE Product Size: 3000 unit Product Wasted: ___ unit epoetin No Notes: ana rosa 11-26 (Same as: [place] 04:00: Procrit) d 00 epoetin ana rosa [id number] unit/1 ml VL. For dialysis use only. (Procrit) WASTE: F/P - Red; E -Red MEDICATION WASTE Product Size: [id number] unit Product Wasted: ___ unit Clonidine Yes 0.3 mg, 11-26 PO, BID, 0 [place] 03:33: Refill(s) d 00 Acetaminoph Yes 1 tab, PO, en 300 MG / 11-26 Q6H, PRN [place] rob[place] Codeine 03:33: Pain, # 28 d Phosphate 00 tab, 0 30 MG Oral Refill(s) Tablet [Tylenol with Codeine #3] ramipril 10 Yes See MH mg oral 11-26 Instructio [place] n capsule 03:33: ns, 1 cap d 00 PO Daily 30 day, 0 Refill(s) Clonidine No Notes: 11-26 (Same As: [place] 02:35: Catapres) d 00 Hydralazine No Notes: Hydrochlori 11-26 (Same as: Pea rlan de 100 MG 02:00: Apresoline d Oral Tablet 00 ) May interfere w/enteral feedings Take With Food NIFEdipine No Notes: 90 mg oral 11-26 (Same as: [place] tablet, 01:35: Adalat CC, d extended 00 Procardia release XL) Give on empty stomach. Take 1 hour before or 2 hours after meal; "Avoid grapefruit and grapefruit juice". Do not crush Hydralazine No 5 mg, 11-26 Route: [place] 00:59: IVP, ONCE, d 00 Dosing Weight 65.909, kg, Start date: 11/25/17 19:59:00 CDT, Stop date: 11/25/17 19:59:00 CDT Lipitor 2017- Yes 80 mg, PO, 11-25 Daily, at [place] 22:16: bedtime, 0 d 00 Refill(s) Sodium No 1,000 mL, Chloride 11-25 1,000 [place] 0.9% 21:55: ml/hr, d (Bolus) IV 00 Infuse Over: 1 hr, Route: IV, 1,000, Drug form: INJ, PRN, Priority: STAT, Dosing Weight 68.5 kg, Start date: 11/25/17 16:55:00 CDT, Duration: 30 day, Stop date: 12/25/17 16:54:00 CDT, PRN Dialysis Sodium No 250 mL, Chloride 11-25 Rate: To [place] 0.9% 21:49: prime line d (titrate) 00 and flush 250 mL remaining blood products., Dosing Weight 68.5, kg, Route: IV, Total Volume: 250, Start Date: 11/25/17 16:49:00 CDT, Duration: 30 day, Stop date: 12/25/17 16:48:00 CDT, Replace Every: 24 hr Hydralazine No Notes: MH 11-25 (Same as: [place] 19:56: Apresoline d 00 ) Push over 5 minutes Acetaminoph No Notes: Do M H en 11-25 not exceed [place] 19:54: 4 gm/day. d 00 (Same as: Tylenol) Acetaminoph No Notes: en 325 MG / 11-25 (Same as: Pea rlan Hydrocodone 19:54: [place] d Bitartrate 00 325/5) Do 5 MG Oral not exceed Tablet 4gm/day of acetaminop hen. remove No 1 patch, patch 2-16 Route: [place] 10:59: TOP, Drug d 00 form: ERFILM, Q7D, Start date: 05/06/17 4:59:00 [employer], Duration: 30 day, Stop date: 06/03/17 9:00:00 CDT Clonidine Yes 0.2 mg = 2 MH Hydrochlori 2- tab, PO, [place] de 0.1 MG 23:26: BID, # 30 d Oral Tablet 00 tab, 0 Refill(s), Pharmacy: [facility][id number] losartan 50 Yes 100 mg = 2 MH mg oral 2-09 tab, PO, [place] tablet 23:26: Q12H, # 30 d 00 tab, 0 Refill(s), Pharmacy: [facility][id number] Hydralazine Yes 200 mg = 2 MH Hydrochlori 2- tab, PO, [place] rob[place] de 100 MG 23:26: TID, 0 d Oral Tablet 00 Refill(s) Clonidine No Notes: Hydrochlori - (Same As: Pea rlan de 0.1 MG 23:00: Catapres) d Oral Tablet 00 normal No 1,000 mL, MH saline 0.9% 04-29 Rate: 75 [place] rob[place] IV 1,000 mL 16:55: ml/hr, d 00 Infuse over: 13.3 hr, Route: IV, Dosing Weight 68.5 kg, Total Volume: 1,000, Start date: 04/29/17 10:55:00 [employer], Duration: 30 day, Stop date: 05/29/17 10:54:00 CDT, 1.79, m2 Hydralazine No 50 mg, 1 MH Hydrochlori - tab, [place] de 50 MG 15:00: Route: PO, d Oral Tablet 00 Drug form: TAB, TID, Dosing Weight 68.5, kg, Start date: 04/29/17 9:00:00 [employer], Duration: 30 day, Stop date: 05/28/17 17:00:00 [employer] 168 HR No Notes: Clonidine - Patch [place] [id number] 11:00: delivers d MG/HR 00 0.1 mg/24 Transdermal hours; Patch Patch is applied weekly. "Remove old patch before applicatio n of new patch" (Same As: Catapres-T TS-1) Kayexalate No Notes: 2-08 (sodium [place] 18:50: polystyren d 00 e sulfonate 15 gm/60 ml TRINITY) Shake well before use. (Same as: Kayexalate , SPS) sodium No 2,000 mL, MH chloride 2-08 0 ml/hr, [place] 0.9% 17:40: Infuse d (Priming 00 Over: 0 and hr, Route: Maintenance IV, 2,000, ) Drug form: INJ, PRN, Dosing Weight 68.5 kg, Start date: 04/28/17 11:40:00 [employer], Duration: 24 hr, Stop date: 04/29/17 11:39:00 [employer], For Use by Dialysis nurse ONLY, PRN Dialysis Hydralazine No Notes: 2-07 (Same as: [place] 09:48: Apresoline d 00 ) Push over 5 minutes Clonidine No Notes: 2-06 (Same As: [place] 15:00: Catapres) d 00 Losartan No Notes: 2-06 (Same as: [place] 03:00: Cozaar) d 00 NIFEdipine No Notes: MH 90 mg oral 2-06 (Same as: [place] tablet, 03:00: Adalat d extended 00 CC,Procard release ia XL) "Do Not Crush" "Avoid grapefruit and grapefruit juice" Melatonin No Notes: 2-06 (Same as: [place] 00:57: Melatonin) d 00 Melatonin No 2.5 mg, 1 MH 2.5 mg oral 2-05 cap, [place] capsule 23:50: Route: PO, d 00 Dosing Weight 68.5, kg, Bedtime, PRN as needed for insomnia, Start date: 04/25/17 17:50:00 [employer], Duration: 30 day, Stop date: 05/25/17 17:49:00 [employer] heparin No 10,000 MH 2-05 unit, 10 [place] 13:45: mL, Route: d 00 DIALYSIS, Drug form: INJ, ONCALL, Dosing Weight 68.5, kg, PRN Dialysis, Start date: 04/25/17 7:45:00 [employer], Duration: 1 doses or times, Stop date: Limited # of times albumin No Notes: Lot human 25% 2-05 #: [place] intravenous 13:44: d solution 00 ___ Mfg: (Same as: Plasbumin- 25) "blood product derivative " WASTE: F/P - Red; E -Red MEDICATION WASTE Product Size: 25 gm Product Wasted: ___ gm normal No 1,000 mL, saline 0.9% 2-05 Rate: 1 Vonnie an IV 1,000 mL 13:43: ml/hr, d 00 Infuse over: 1000 hr, Route: DIALYSIS, Dosing Weight 68.5 kg, Total Volume: 1,000, Priority: NOW, Start date: 04/25/17 7:43:00 [employer]PER[employer]OR, Duration: 30 day, Stop date: 05/25/17 7:42:00 [employer]PER[employer]OR, 1.79, m2 normal No 1,000 mL, saline 0.9% 2-05 Rate: 1 Vonnie an IV 1,000 mL 13:42: ml/hr, d 00 Infuse over: 1000 hr, Route: DIALYSIS, Dosing Weight 68.5 kg, Total Volume: 1,000, Priority: NOW, Start date: 04/25/17 7:42:00 [employer]PER[employer]OR, Duration: 30 day, Stop date: 05/25/17 7:41:00 [employer]PER[employer]OR, 1.79, m2 Isosorbide No Notes: Dinitrate - (Same [place] 15:00: as:Isordil d 00 ) Take on empty stomach/ full glass of water Epogen No Notes: - (Same as: [place] 23:00: Procrit) d 00 epoetin ana rosa [id number] unit/1 ml VL. For dialysis use only. (Procrit) WASTE: F/P - Red; E -Red MEDICATION WASTE Product Size: [id number] unit Product Wasted: ___ unit Sertraline No Notes: - (Same as: [place] 23:00: Zoloft) d 00 Doxazosin No Notes: 2-02 (Same as: [place] 23:00: Cardura) d 00 Docusate No Notes: Sodium 100 2-02 (Same as: Pear rob[place] MG Oral 23:00: Colace) d Capsule 00 (Do Not Crush) Vitamin D3 No Notes: 1000 intl 2- Same as : Vonnie an units oral 23:00: Vitamin D3 d tablet 00 Tums No Notes: 2-02 (Same As: [place] 23:00: Tums) d 00 Calcium Carbonate 500 mg = 200 mg elemental calcium Dose = mg calcium carbonate ( mg elemental calcium) Hydralazine No Notes: Hydrochlori 2-02 (Same as: Pea rlan de 100 MG 19:00: Apresoline d Oral Tablet 00 ) May interfere w/enteral feedings Take With Food heparin No Notes: 2-02 porcine [place] 15:00: heparin d 00 Plavix No Notes: 2-02 (Same As: [place] 15:00: Plavix) d 00 Aspirin No Notes: Do 2-02 not crush [place] 15:00: or chew. d 00 (Same As: Ecotrin) Hydralazine No Notes: 2-02 (Same as: [place] 15:00: Apresoline d 00 ) May interfere w/enteral feedings Take With Food NIFEdipine Yes 90 mg = 1 MH 90 mg oral 2-02 tab, PO, Vonnie an tablet, 10:02: QAM & PM, d extended 00 0 release Refill(s) melatonin 5 Yes 5 mg = 1 MH mg oral 2-02 tab, PO, [place] tablet 10:02: Bedtime, d 00 PRN for insomnia, # 60 tab, 0 Refill(s) Ascorbic Yes 1 tab, PO, MH Acid 60 MG 2-02 QPM, 0 [place] / Biotin 10:02: Refill(s) d 0.3 MG / 00 Folic Acid 0.8 MG / mecobalamin 0.006 MG / Niacinamide 20 MG / pantothenat e 10 MG / pyridoxine 10 MG / Riboflavin 1.7 MG / Thiamine 1.5 MG Oral Tablet [Dialyvite 800] sertraline Yes 50 mg = 1 MH 50 mg oral 2-02 tab, PO, Vonnie an tablet 10:02: QPM, 0 d 00 Refill(s) doxazosin 4 Yes 4 mg = 1 MH mg oral 2-02 tab, PO, [place] tablet 10:02: QPM, 0 d 00 Refill(s) losartan 50 No 50 mg = 1 M H mg oral 2-02 tab, PO, [place] tablet 10:02: QAM & PM, d 00 0 Refill(s) Tums Yes 1,000 mg, MH 2-02 CHEW, QAM [place] 10:02: & PM, 0 d 00 Refill(s) Docusate Yes 100 mg = 1 MH Sodium 100 04-22 cap, PO, Vonnie an MG Oral 10:02: QAM & PM, d Capsule 00 0 Refill(s) Vitamin D3 Yes 5,000 MH 5000 intl 04-22 IntlUnit = Pear robby units oral 10:02: 1 cap, PO, d capsule 00 QPM, # 30 cap, 1 Refill(s) Hydralazine No Notes: MH - (Same as: [place] 09:57: Apresoline d 00 ) Push over 5 minutes Labetalol No 20 mg, 4 MH 2-02 mL, Route: [place] 09:57: IVP, Drug d 00 form: INJ, ONCE, Dosing Weight 68.5, kg, Start date: 04/22/17 3:57:00 [employer]PER[employer]OR, Stop date: 04/22/17 3:57:00 [employer]PER[employer]OR potassium No Notes: chloride 20 04-22 (Same as: Pea rlan mEq oral 09:57: K-Dur 20) d tablet, 00 "Do Not extended Crush" release With food and full glass of water Magnesium No Notes: Sulfate 04-22 WASTE: F/P [place] 09:57: - Sink; E d 00 - Municipal Trash Bin Isosorbide Yes 90 mg, PO, M H Dinitrate 02 QAM, 0 [place] 09:48: Refill(s) d 00 Hydralazine No 100 mg = 1 MH Hydrochlori 2-02 tab, PO, [place] de 100 MG 09:48: TID, 0 d Oral Tablet 00 Refill(s) clopidogrel Yes 75 mg = 1 M H 75 MG Oral 2-02 tab, PO, Vonnie an Tablet 09:48: QAM, 0 d [Plavix] 00 Refill(s) Aspirin Yes 81 mg, PO, MH 2- QAM, 0 [place] 09:48: Refill(s) d 00 Hydralazine No Notes: 2- (Same as: [place] 07:46: Apresoline d 00 ) Push over 5 minutes Insulin No Notes: Lispro - Roll in [place] 07:43: palms of d 00 hands gently; Do not shake `vigorousl y. (Same as: Humalog ) "Single Patient Use Only " WASTE: F/P - Black; E - Municipal Trash Bin Stable for 28 days at room temperatur e. Expires in days from ____Date Dextrose No 12.5 gm, 50% Syringe -02 25 mL, [place] n 07:43: Route: d 00 IVP, Drug Form: INJ, Dosing Weight 68.5, kg, PRN, PRN Blood Glucose Results, Start date: 04/22/17 1:43:00 [employer]OWING SUPERVISOR, Duration: 30 day, Stop date: 05/22/17 1:42:00 [employer]PERVISOR Glucagon No 1 mg, MH 04-22 Route: IM, [place] 07:43: Drug form: d 00 PDR/INJ, PRN, Dosing Weight 68.5, kg, PRN Blood Glucose Results, Start date: 04/22/17 1:43:00 MUSHROOM GROWING SUPERVISOR, Duration: 30 day, Stop date: 05/22/17 1:42:00 MUSHROOM GROWING SUPERVISOR NIFEdipine No Notes: MH 60 mg oral - (Same as: [place] tablet, 07:40: Adalat CC, d extended 00 Procardia release XL) Give on empty stomach. Take 1 hour before or 2 hours after meal; "Avoid grapefruit and grapefruit juice". Do not crush Losartan No Notes: 2- (Same as: [place] 07:40: Cozaar) d 00 Acetaminoph No Notes: Do M H en - not exceed [place] 07:26: 4 gm/day. d 00 (Same as: Tylenol) aspirin 2015- Yes 81mg QD Take 81 mg [place] (ECOTRIN) 7-07 by mouth Method i 81 MG 15:36: daily. st enteric 05 coated tablet atorvastati 2015- Yes 80mg QD Take 80 mg [place] n (LIPITOR) 7-07 by mouth Meth evi 80 MG 15:36: daily. st tablet 05 carvedilol 2015- Yes 25mg Q.5D Take 25 mg [place] (COREG) 25 7-07 by mouth 2 Met hodi MG tablet 15:36: (two) st 05 times a day with meals. clopidogrel 2015-0 Yes 75mg QD Take 75 mg [place] (PLAVIX) 75 7-07 by mouth Meth evi mg tablet 15:36: daily. st 05 docusate 2015-0 Yes 100mg Q.5D Take 100 [place] sodium 7-07 mg by Methodi (COLACE) 15:36: mouth 2 st 100 MG 05 (two) capsule times a day. hydrALAZINE 0 Yes 100mg Q.[id number] Take 100 [place] (APRESOLINE 7-07 [id number] mg by Ravi chavis ) 100 MG 15:36: 3D mouth 3 st tablet 05 (three) times a day. isosorbide 2015-0 Yes 60mg QD Take 60 mg [place] mononitrate 7-07 by mouth Meth evi (IMDUR) 60 15:36: daily. st MG 24 hr 05 tablet sitaGLIPtin 2015-0 Yes 100mg QD Take 100 [place] (JANUVIA) 7-07 mg by Methodi 100 MG 15:36: mouth st tablet 05 daily. losartan 2016-0 Yes 60mg QD Take 60 mg [place] (COZAAR) 7-07 by mouth Methodi 100 MG 15:36: daily. st tablet 05 megestrol 2015-0 Yes 40mg QD Take 40 mg [place] (MEGACE) 40 7-07 by mouth Meth evi MG tablet 15:36: daily. st 05 FOLIC 2016-0 Yes 1{tbl} QD Take 1 [place] ACID/VIT 7-07 tablet by Method i BCOMP,C 15:36: mouth st (NEPHRO-VIT 05 daily. E ORAL) NIFEdipine 2015- Yes 90mg Q.5D Take 90 mg [place] XL 7-07 by mouth 2 Methodi (PROCARDIA 15:36: (two) st XL) 90 MG 05 times a 24 hr day. tablet sertraline Yes 50mg QD Take 50 mg [place] (ZOLOFT) 50 7-07 by mouth Meth evi MG tablet 15:36: daily. st 05 Vital Signs Vital Name Observation Time Observation Value Comments Source Systolic (mm Hg) 2018-11-28 16:24:00 [facility] Health Diastolic (mm Hg) 2018-11-28 16:24:00 [facility] Heart Rate 2018-11-28 16:24:00 [facility] Temperature Oral (F) 2018-11-28 16:20:00 36.83 Jeanna [facility] Health Respitory Rate 2018-11-28 16:20:00 [facility] Height 2018-11-28 16:20:00 167.6 cm [facility] Weight 2018-11-28 [facility]:20[facility] Systolic (mm Hg) 2018-10-17 15:34:00 [facility] Diastolic (mm Hg) 2018-10-17 15:34:00 [facility] Heart Rate 2018-10-17 15:34:00 [facility] Temperature Oral (F) 2018-10-17 15:34:00 37 Jeanna [facility] Respitory Rate 2018-10-17 15:34:00 [facility] Height 2018-10-17 15:34:00 165.1 cm [facility] Weight 2018-10-17 15:34[facility]00 [facility] Systolic (mm Hg) 2017-11-27 00:00:00 MH [facility] [place] Diastolic (mm Hg) 2017-11-27 00:00:00 [facility] 2017-11-27 00:00:00 [facility] [place] Respitory Rate 2017-11-26 23:00:00 [facility] [place] Systolic (mm Hg) 2017-11-26 23:00:00 [facility] [place] Diastolic (mm Hg) 2017-11-26 23:00:00 [facility] Systolic (mm Hg) 2017-11-26 22:00:00 MH [place] Diastolic (mm Hg) 2017-11-26 22:00:00 [facility] [place] Respitory Rate 2017-11-26 22:00:00 [facility] [place] Temperature Oral (F) 2017-11-26 17:00:00 98.0 F [place] Temperature Oral (F) 2017-11-26 12:30:00 97.6 F [facility] Oral (F) 2017-11-26 10:00:00 98.5 F [facility] Heart Rate 2017-11-26 02:22:00 MH [place] and Heart Rate 2017-11-25 23:45:00 MH [place] and BMI Calculated 2017-11-25 21:59:00 [facility] [place] Weight 2017-11-25 21:59:00 MH [place] and Height 2017-11-25 21:59:00 165.1 cm MH [place] and Heart Rate 2017-11-25 19:30:00 MH [place] and Heart Rate 2017-04-29 22:48:00 MH [place] and Systolic (mm Hg) 2017-04-29 22:48:00 MH [place] Diastolic (mm Hg) 2017-04-29 22:48:00 [place] Systolic (mm Hg) 2017-04-29 21:18:00 MH [place] Diastolic (mm Hg) 2017-04-29 21:18:00 MH [place] Respitory Rate 2017-04-29 21:18:00 [facility] [place] Heart Rate 2017-04-29 21:18:00 MH [place] and Temperature Oral (F) 2017-04-29 21:18:00 98.4 F [place] Temperature Oral (F) 2017-04-29 17:26:00 97.8 F [facility] 2017-04-29 17:26:00 MH [place] and Respitory Rate 2017-04-29 17:26:00 MH [place] Systolic (mm Hg) 2017-04-29 17:26:00 [facility] [place] Diastolic (mm Hg) 2017-04-29 17:26:00 MH [place] Respitory Rate 2017-04-29 14:33:00 MH [place] Temperature Oral (F) 2017-04-29 13:39:00 98.4 F [facility] BMI Calculated 2017-04-22 06:08:00 MH [place] Weight 2017-04-22 06:08:00 MH [place] and Height 2017-04-22 06:08:00 165.1 cm MH [place] and BMI Calculated 2017-04-22 05:02:00 MH [place] Weight 2017-04-22 05:02:00 MH [place] and Height 2017-04-22 05:02:00 165.1 cm MH [place] and Height 2017-04-22 05:01:00 165.1 cm MH [place] and Procedures Procedure Date / Time Performed Performing Clinician [facility] e Bilateral extraction of MH [place] and cataracts Caesarean section MH [place] Carotid angiogram [facility] [place] Cholecystectomy [facility] [place] Provision of stents or bite MH [place] blocks<sup>1</sup> Plan of Care Planned Activity Planned Date Details Comments Source Future Scheduled 2019-10-20 INFLUENZA VACCINE [place] [facility] 00:00:00 [code = INFLUENZA VACCINE] Future Scheduled 1995-09-27 65+ PNEUMOCOCCAL [place] [facility] 00:00:00 VACCINE (1 of 2 - PCV13) [code = 65+ PNEUMOCOCCAL VACCINE (1 of 2 - PCV13)] Future Scheduled 1980 SHINGLES VACCINES (#1) [place] [facility] 00:00:00 [code = SHINGLES VACCINES (#1)] Future Scheduled 1940 DIABETIC FOOT EXAM [place] [facility] 00:00:00 [code = DIABETIC FOOT EXAM] Future Scheduled 1940 URINE MICROALBUMIN [place] [facility] 00:00:00 [code = URINE MICROALBUMIN] Future Scheduled 1930 DIABETIC RETINAL EYE [place] [facility] 00:00:00 EXAM [code = DIABETIC RETINAL EYE EXAM] Future Scheduled Plan of Care [code = Mem orial [place] Test 03406-5] [facility] Future Scheduled Plan of Care [code = Mem orial [place] Test 93064-5] [facility] Future Scheduled Plan of Care [code = Mem orial [place] Test 69222-9] [facility] Future Scheduled Plan of Care [code = Mem orial [place] Test 89718-3] [facility] Future Scheduled Plan of Care [code = Mem orial [place] Test 97227-2] [facility] Encounters Start End Encounter Admission Attending Care Care Encounter Source Date/Time Date/Time Type Type Clinicians Facility Department ID 2018-11-28 2018-11-28 Office [facility] [id number] [facility] 16:03:56 16:42:17 [facility] 2018-11-28 2018-11-28 Office [facility] [id number] 11:03:56 11:42:17 Visit Silvana Rao 350.1.13.10 [place] 4.2.7.2.686 Professio [phone] [address] 2018-11-28 2018-11-28 Office [facility] [id number] 11:03:56 11:42:17 Visit Silvana Rao 350.1.13.10 [place] 4.2.7.2.686 Professio [phone] [address] 2018-11-28 2018-11-28 Office [facility] [id number] 11:03:56 11:42:17 Visit Silvana Rao 350.1.13.10 [place] 4.2.7.2.686 Professio [phone] [address] 2018-11-28 2018-11-28 Letter [facility] [id number] [facility] 00:00:00 00:00:00 (Out) Vascular Healt [facility] 2018-11-28 2018-11-28 Letter [facility] [id number] 00:00:00 00:00:00 (Out) Silvana Rao 350.1.13.10 [place] 4.2.7.2.686 Professio [phone] [address] 2018-10-17 2018-10-17 Office [facility] [id number] [facility] 15:18:44 16:07:18 [facility] 2018-10-17 2018-10-17 Office [facility] 1.2.840.114 [id number] 10:18:44 11:07:18 Visit Silvana Rao 350.1.13.10 [place] 4.2.7.2.686 Professio [phone] [address] 2018-10-17 2018-10-17 Office Yana [facility] 1.2.840.114 [id number] 10:18:44 11:07:18 Visit Silvana Rao 350.1.13.10 Maria Elena 4.2.7.2.686 Florencio [phone] [address] 2017-11-25 2017-11-27 Inpatient [facility] [id number] MH 19:33:00 01:17:00 [place] 50 [facility] 2017-11-25 2017-11-26 Outpatient Jones, MHPL PL [id number] 14:33:00 20:17:00 Bruno 50 2017-04-22 2017-04-30 Inpatient [facility] [id number] MH 04:59:00 01:15:00 [place] 32 [facility] 2017-04-21 2017-04-29 Outpatient Hamid, MHPL PL [id number] 22:59:00 19:15:00 Gregg 32 Results Test Description Test Time Test Comments Results Result Comments Source WOUND CULTURE + GRAM STAIN 2019-02-19 17:15:00 Test Item Value Reference Range Interpretation Comme nts CULTURE (BEAKER) (test code = 1095) No growth GRAM STAIN RESULT (BEAKER) (test code = 1123) <1+ WBCs GRAM STAIN RESULT (BEAKER) (test code = 06818) No organisms seen POCT-GLUCOSE [id number] 12:10:00 Test Item Value Reference Range Interpretation Comments POC-GLUCOSE METER 77 mg/dL 70-110 : TESTED A T [facility] 6720 (BEAKER) (test code [facility], = 1538) 8[address]: Medical Coding Manager/Techni dax ID = [id number] for Erickson Jacobo CBC W/PLT COUNT & AUTO [id number] 05:11:00 Test Item Value Reference Range Interpretation [...] PERCENT (BEAKER) (test code = 2801) POCT-GLUCOSE [id number] 21:01:00 Test Item Value Reference Range Interpretation Comments POC-GLUCOSE METER 105 mg/dL 70-110 : TESTED A T [facility] 6720 (BEAKER) (test code = [place], 1538) 89516: Medical Coding Manager/Techni dax ID = [id number] for BILL MCGRAW POCT-GLUCOSE [id number] 21:00:00 Test Item Value Reference Range Interpretation Comments POC-GLUCOSE METER 138 mg/dL 70-110 H : TESTED A T [facility] 6720 (BEAKER) (test code = [facility] [place], 1538) 86039: Medical Coding Manager/Techni dax ID = [id number] for JENNIFER MCDONALD POCT-GLUCOSE [id number] 09:13:00 Test Item Value Reference Range Interpretation Comments POC-GLUCOSE METER 77 mg/dL 70-110 : TESTED A T [facility] 6720 (BEAKER) (test code = [facility] [place], 1538) 32857: Medical Coding Manager/Techni dax ID = [id number] for FELTON KISER COMPREHENSIVE METABOLIC [id number] 06:33:00 Test Item Value Reference Range Interpretation [...] PATIEN TS. CBC W/PLT COUNT & AUTO [id number] 05:46:00 Test Item Value Reference Range Interpretation [...] 0-1 PERCENT (BEAKER) (test code = 2801) [id number] 04:27:00 Test Item Value Reference Range Interpretation Comments RPR SCREEN (BEAKER) (test code = Nonreactive Nonreactive 420) POCT-GLUCOSE [id number] 22:54:00 Test Item Value Reference Range Interpretation Comments POC-GLUCOSE METER 94 mg/dL 70-110 : TESTED A T [facility] 6720 (BEAKER) (test code = [facility], 1538) 91686: Medical Coding Manager/Techni dax ID = [id number] for JACKY CAMACHO POCT-GLUCOSE [id number] 18:10:00 Test Item Value Reference Range Interpretation Comments POC-GLUCOSE METER 108 mg/dL 70-110 : TESTED A T [facility] 6720 (BEAKER) (test code = [facility], 1538) 27286: Medical Coding Manager/Techni dax ID = [id number] for JULISSA KRISHNA MR, BRAIN, WITHOUT [id number] 16:05:00FINAL REPORT MR, BRAIN, WITHOUT CONTRAST INDICATION: [...] chronic microvascular changes, commensurate with age. Signed: Meservy, Kerrie MDReport Verified Date/Time: 02/17/2019 16:05:48 -GLUCOSE [id number] 12:03:00 Test Item Value Reference Range Interpretation Comments POC-GLUCOSE METER 145 mg/dL 70-110 H : Notified RN/MD: (BEAKER) (test code = TESTED AT [facility] 6759 4845) [facility], [address]: Medical Coding Manager/Techni dax ID = [id number] for JULISSA DELAROSA URINALYSIS W/ REFLEX URINE [id number] 11:54:00 Test Item Value Reference Range Interpretation [...] (test code = 2795) VITAMIN B12 AND [id number] 09:50:00 Test Item Value Reference Range Interpretation Comments VITAMIN B12 (BEAKER) (test code = > pg/mL 213-816 H 774) FOLATE (BEAKER) (test code = 362) 16.5 ng/mL >=7.0 HEMOGLOBIN [id number] 09:03:00 Test Item Value Reference Range Interpretation Comments HEMOGLOBIN A1C (BEAKER) (test code = 4.3 % 4.3-6.1 368) HEMOGLOBIN [id number] 06:22:00 Test Item Value Reference Range Interpretation Comments HEMOGLOBIN A1C (BEAKER) (test code = 4.3 % 4.3-6.1 368) COMPREHENSIVE METABOLIC [id number] 05:42:00 Test Item Value Reference Range Interpretation [...] NOT APPLICABLE FOR DIALYSIS PATIEN TS. FastingLIPID [id number] 05:36:00 Test Item Value Reference Range Interpretation [...] High >=190 FastingCBC W/PLT COUNT & AUTO [id number] 05:04:00 Test Item Value Reference Range Interpretation [...] PERCENT (BEAKER) (test code = 2801) POCT-GLUCOSE [id number] 00:21:00 Test Item Value Reference Range Interpretation Comments POC-GLUCOSE METER 92 mg/dL 70-110 : TESTED A T [facility] 6720 (BEAKER) (test code = [facility], 1538) 6[address]: Medical Coding Manager/Techni dax ID = [id number] for Kirstie Guajardo HEPATITIS B SURFACE [id number] 20:43:00 Test Item Value Reference Range Interpretation Comments HEPATITIS B SURFACE ANTIGEN (2) Nonreactive Nonreactive (BEAKER) (test code = 2585) HEPATITIS C [id number] 20:43:00 Test Item Value Reference Range Interpretation Comments HEPATITIS C ANTIBODY (BEAKER) Nonreactive Nonreactive (test code = 367) VITAMIN [id number] 19:57:00 Test Item Value Reference Range Interpretation Comments VITAMIN B12 (BEAKER) (test code = > pg/mL 213-816 H 774) [id number] 19:45:00 Test Item Value Reference Range Interpretation Comments THYROID STIMULATING HORMONE 1.78 uIU/mL 0.35-4.94 (BEAKER) (test code = 772) TROPONIN [id number] 19:27:00 Test Item Value Reference Range Interpretation [...] acute neurological disease, and persistent tachyarrhythmia.COMPREHENSIVE METABOLIC [id number] 19:21:00 Test Item Value Reference Range Interpretation [...] NOT APPLICABLE FOR DIALYSIS PATIEN TS. PROTHROMBIN [id number] 19:10:00 Test Item Value Reference Range Interpretation [...] mechanical heart valves.CBC W/PLT COUNT & AUTO [id number] 19:02:00 Test Item Value Reference Range Interpretation [...] = 2801) RAD, CHEST, 1 VIEW, NON [id number] 18:34:00Reason for exam:->Shortness of breathShould this be [...] MDReport Verified Date/Time: 02/16/2019 18:34:17 Reading Location: [facility] C013W Consult Reading Room CHEM [id number] 15:22:0014 [place] [id number] 15:22:18740RB [place]landCHEM [id number] 15:22:00 22 [place]landCHEM [id number] 15:22:003.20 [place]CHEM [id number] 15:22:52084TC [place]landCHEM [id number] 15:22:0027MH [place]landCHEM PANEL 2017-11-26 15:22:0098MH [place]landCHEM GHJFJ2879-94-87 15:22:003.9 [place]CHEM VOLNR2406-51-71 15:22:0012.9 [place]CHEM [id number] 15:22:008.1MH HwpbntdkBVSVUIAHXB3376-80-85 15:22:000.7MH LgvlzymaAFSNSPXRXJ9673-65-24 15:22:00 0.1MH PtfholiuVFBCRJYWBC5224-80-70 15:22:000.5MH QvoeqwwoGHINLZZPBZ0695-53-01 15:22:000.9 DueriamjJSOFXGVFWX3702-37-54 15:22:005.3M [place]landHEMATOLOGY 2017-11-26 15:22:007.3MH NsuixviwRXSBMVMQIX2915-70-87 15:22:000.6[facility] MKWNEKTYZL3073-30-10 15:22:008.4 QivxgxnzOSLAYQKDJF5141-09-99 15:22:0084.8 UozzlahmCINKMLVJCS0620-48-36 15:22:000.1MH DzwihbzbQYLFMEDGHI8403-34-71 15:22:00 34.5MH IbcwuittYJIMLCNGKG3796-65-29 15:22:0015.1MH QdtjnsanKLCINDQPUP7967-62-08 15:22:35781WU WgjpxbprEFJFXPWBUT8100-03-26 15:22:008.2M [place]landHEMATOLOGY 2017-11-26 15:22:002.73MH RsegpqpkXKHGUKRQHP2217-29-60 15:22:008.9[facility] BLEYKOYSSP7514-94-28 15:22:0025.9 LrrsvsdvLBRBUWPWVC7634-43-51 15:22:0094.8 XdyolnshUIWYKQBFNW5883-41-97 15:22:00 Test Item Value Reference Range Interpretation Comments MCH (test code = MCH) 32.7 pg 27.0-31.0 QsojpckhLXXCCKAKQV9354-99-50 15:22:008.6[facility] 2017-11-26 05:49:00Negative (11/26/17 12:49 AM)MH PearlandANEMIA [id number] 00:10:0031.9 [place]ANEMIA [id number] 00:10:32290HC [place]landANEMIA STUDY 2017-11-26 00:10:347056TP PearlandCHEM CUTPT5409-49-97 00:10:06683SL [place] CHEM GUDEW0085-12-39 00:10:000.2MH PearlandCHEM GTSYA0062-18-43 00:10:000.4MH PearlandCHEM HGJER6591-67-91 00:10:000.2MH IlliihorEJDCIYYZOE8491-18-68 00:10:00 1.6MH ClrbltneDEAUEOIWZX4438-25-11 00:10:0025.8 PearlandORGANIC HXWS6417-32-94 00:10:[facility] LUNYMNI4780-82-15 23:45:23Product available 1(11/25/17 6:45 PM)[facility] [id number] 22:20:00Negative (11/25/17 5:20 PM)[facility] AEHRJCM9887-24-06 22:20:00Product available 2(11/25/17 5:20 PM)[facility] HealthMlersflrFEQCHDSAUNYM3409-85-63 22:20:0013.7[facility]OiqftwwqRTPUTHLYBBVU5002-98-68 22:20:00 Test Item Value Reference Range Interpretation Comments B/C Ratio (test code = B/C Ratio) 8 1 6-25 [facility]XcizmykfJGFNRJOSBLUU4407-87-06 22:20:00 Test Item Value Reference Range Interpretation Comments A/G Ratio (test code = A/G Ratio) 0.8 1 0.7-1.6 [facility] HospitalIotsevucQATARUDKFQDJ3301-48-13 22:20:003.9[facility] HospitalRfgytlwkDBKOLWWQIEDK4772-33-49 22:20:10869QH FhmjggdmUDCBKOGXSUBI3433-24-00 22:20:27905WV PearlandELECTROLYTES 2017-11-25 22:20:003.7[facility] HospitalTfnpqojhMGXFKKLTJFGE7251-43-14 22:20:0031 [place] EDMDDJJMUOWI8744-13-82 22:20:0025[facility] HospitalMqzgnbuxHBZMHHWXHOXY3147-94-26 22:20:003.1M[facility] CenterVdofceuxZTUTYFCSLEBW4887-64-52 22:20:008.0[facility] HospitalCzuwmmceVEOJIRYWKHYD4085-76-69 22:20:0027[facility] HospitalRpwkcbxtTXYISSHZUXNF7950-66-34 22:20:0041[facility] HospitallandELECTROLYTES 2017-11-25 22:20:63632AJ BogpirqiXTABMUOFHWRO8843-94-88 22:20:007.0[facility] CQRNHRCHHTQU7482-22-41 22:20:004.96[facility] HospitalTbvuvpozIDBPBPCWEWBZ3902-14-43 22:20:000.4 [facility] HospitalLqziotgyPMZPSCVSHELQ2143-91-85 22:20:0073[facility] HospitalYjybirkrHBRDXEJYNCKZ4559-75-61 22:20:008[facility] HospitalGfbfpuhmZYDBHJRKOI7687-14-46 22:20:006.3M[facility] CenterlandHEMATOLOGY 2017-11-25 22:20:001.95[facility] HospitalGljbnfnnPVRMDLAAYJ5412-18-75 22:20:006.3[facility] WCAHWEEMNF4056-51-40 22:20:0018.3MCol[facility] Medical CenterBklbcyjmPHOXXONSCC0539-92-09 22:20:0034.5[facility] HospitalBkogwthgRPFFYWSRGZ8069-42-21 22:20:00 Test Item Value Reference Range Interpretation Comments MCH (test code = MCH) 32.4 pg 27.0-31.0 [facility]ItrqrfknPLFZOOLPJK5271-67-27 22:20:0093.7[facility] HospitalJondyatpOECKMYVZJS3217-78-40 22:20:008.1MCol[facility] Medical CenterFtajfkqhNTESXSLXJH6554-12-67 22:20:82931FZ PearlandHEMATOLOGY 2017-11-25 22:20:0016.[address] [place], [place] [address]SmxwqcgaFXQYRRLJBL1696-46-84 22:20:005.[address] [place] [address] PVKDQIGGDQ0579-78-17 22:20:000.[address] [place], [place] [address]TslumecgJJVQSAMZNO0896-44-76 22:20:000.8[facility] HospitalGqozjlsqGTHSXBTFHX0631-18-00 22:20:001+ (11/25/17 5:20 PM)[facility] HospitallandHEMATOLOGY 2017-11-25 22:20:001+ *ABN*(11/25/17 5:20 PM)[facility] HospitalEsmbfytlODVQTZJSXG6787-42-13 22:20:001+ *ABN*(11/25/17 5:20 PM)[facility] MarylandRluyydsgCVBKSJFICY5115-71-75 22:20:00See Note (11/25/17 5:20 PM)[facility] MarylandQaxodqryMHMMHIXAKF9188-26-64 22:20:0080.8[facility] JHZLXJOKHO0583-30-13 22:20:00Normal (11/25/17 5:20 PM)[facility] 2017-11-25 22:20:005.5[facility] MarylandGsjoyjaqELXKJLVFOT4742-61-45 22:20:0013.0[facility] RZUBHSNUFL4455-70-31 22:20:000.5[facility] MarylandFgwiuscbASPTNQDPKG4337-39-99 22:20:000.2MHel[facility] HospitalOatnvbbxABZQGSTGPY8267-32-08 22:20:00Occasional *ABN*(11/25/17 5:20 PM)[facility] ZCIXTUVVDO0472-46-18 22:20:00Negative *NA*(11/25/17 5:20 PM)[facility] LVDQOHVPDSCJ8420-11-49 10:29:0010.8[facility] MarylandCadhbvscQBZXEBWFYCMG8949-45-39 10:29:0015 [facility] MarylandZauldedyBNOYTOKYEKZG0501-91-33 10:29:008.5[facility] MarylandFwexwcqxXRXJBAZPIRQI7027-41-94 10:29:003.11[facility] MarylandYgsviypsJUXRJJKMYQBA2488-17-06 10:29:0082[facility] MarylandELECTROLYTES 2017-04-29 10:29:19601UQ XovjhocuNTGSFZNGVGWJ5288-55-28 10:29:0099[facility] UHWSIVPFGCJA6076-76-80 10:29:0030[facility] HospitalHdavcbckZRPEFGMDCDJR0985-78-88 10:29:004.8[facility] HospitalXutxkzkwGILNNWIWIMGI6303-57-54 10:29:0019[facility] HospitalSroaztknVAXSFHXXSX2487-64-62 10:29:000.7[facility] HospitalFskascshLAEAXVKEFD2119-20-90 10:29:001.3[facility]HE[facility] 2017-04-29 10:29:0074.6M[facility] JacksonvilleBzzatxxoYRTFNKFTDN1159-87-71 10:29:000.4[facility] URYGFOLKNM4544-44-57 10:29:003.9[facility] MarylandPhcpupruBDMHVROHHO3292-75-71 10:29:000.8MH UtdqwjemNBLXWQEKLI7469-32-71 10:29:000.1MH MoochhmoNZPSLXKGFX5251-13-38 10:29:00 15.1MH TgjfegoxVHMTORZTKR2835-03-25 10:29:008.3MH BppsjyxoTAFYGUTGCS7769-97-47 10:29:0014.7[facility] MarylandKzpkstygKIHZFJYTRT8559-28-32 10:29:97234PA [place]HE[place] 2017-04-29 10:29:008.5[facility] HospitalKiijrhniQLHMFTWUDO1813-67-16 10:29:0096.8[facility] KNCSYMUPAP5899-80-36 10:29:0028.5[facility] MarylandNcliqudzLMIYERBVTZ7130-75-78 10:29:0035.6M[facility] JacksonvilleLwnbqasoKEJDLTJNTG8593-46-59 10:29:00 Test Item Value Reference Range Interpretation Comments MCH (test code = MCH) 34.4 pg 27.0-31.0 [facility] MarylandYeoodjioPNIHBRYBLO5011-55-22 10:29:005.2M[facility] JacksonvilleRibgptmpTOVVZBZOLT5421-99-28 10:29:002.94[facility] MarylandIrgxfmzoRTBXHXNZWU7699-81-61 10:29:0010.1M [facility] gl[facility]aleELECTROLYTES 2017-04-28 19:49:005.3[facility] EOZKCKR6689-63-56 13:30:13Negative (04/28/17 7:30 AM)[facility] InstituteAgari [facility] QUXRVTC2964-74-61 13:00:00Product available 1(04/28/17 7:00 AM)[facility] HospitallandCHEM OOXLD4861-61-10 09:58:009 [place] CHEM WHJHS2093-41-19 09:58:008.2M [facility] ImmersionlandCHEM XOLLF5651-59-99 09:58:0029 [place]landCHEM BWGEA8085-28-91 09:58:84922KR PearlandCHEM IRJEQ5880-59-13 09:58:00 97 PearlandCHEM TCLTS3939-33-58 09:58:005.7 [facility] ImmersionlandCHEM BVHGU6370-67-52 09:58:0037 [facility]landCHEM HIMYQ8308-69-02 09:58:0087MH PearlandCHEM PANEL 2017-04-28 09:58:004.70MH [facility]landCHEM YTKEQ7472-83-23 09:58:009.7MH [place] NBBJQSMURU3669-97-08 09:58:95825MM KjvixwerTKCATQGXZZ0154-82-37 09:58:008.1MH HrcgwqjkTSBDXQRJDC0557-95-84 09:58:0013.6MH OvmdnsvmNPFSEXSEXN4570-99-74 09:58:00 Test Item Value Reference Range Interpretation Comments MCH (test code = MCH) 34.9 pg 27.0-31.0 ZpuqqjqeESEAWIUMWF8612-60-38 09:58:0035.4MH IqlgqlyxWPIUWTCLXQ3816-14-81 09:58:006.5MH QoqrkopoIELNJVQSPF2190-34-12 09:58:0098.6MH [place]landHEMATOLOGY 2017-04-28 09:58:0018.5MH TwwjmojcFRAIMWFRQX5356-45-97 09:58:004.2MH [place] DOWNKXKXFK9772-59-46 09:58:001.87MH OplikyogVJBFVYHVPR1670-55-99 09:58:000.4MH DeogrpnnAAURWTQACP2552-49-84 09:58:000.1MH IapjnvfrAOEKKMKMKP2848-09-49 09:58:00 2.7MH BwttdqmvQSJKKONLEZ9406-53-98 09:58:001.0MH LqczrydgMYZSPCQEBW9352-78-44 09:58:0024.2MH OxspxrgzLZVJKFYFUX0099-95-69 09:58:0064.0 [place]HEMATOLOGY 2017-04-28 09:58:008.8MH MnkuifbqEYOJWMPIAO2483-86-91 09:58:002.1MH [place] KCTMPFLAZH1501-27-01 09:58:000.9MH GghfvrsoAKTMKDLYAT9759-46-89 01:51:004.2MH AkuyubpaSZXUTZHUSI2569-37-84 01:51:0019.3MH EmsvvjjsTDOPNBQEVP6817-33-57 01:51:0098.8MH ZzqsyzagGAHZKZGCTG6343-21-41 01:51:007.0MH [facility] 2017-04-28 01:51:00 Test Item Value Reference Range Interpretation Comments MCH (test code = MCH) 35.6 pg 27.0-31.0 IewflyujMWQOINJGXW1268-55-46 01:51:001.95 ZnznoscwZWELHFUJOO0244-66-67 01:51:008.6MH XbpjnzffCEPBAIPEBN8703-71-83 01:51:92114EQ [facility] 2017-04-28 01:51:0036.0 SwzaxtczHDREJQGVSR2097-96-11 01:51:0013.8 [place] WYFBCSOUFPHG9793-64-92 10:40:0097 ArzqempoWXOPZNTAIZVY8059-12-42 10:40:31082HX JievkdfxOIYGIUFOKCCB2520-07-98 10:40:003.24 KwyocjxpAOZIWJSYNQQX2726-87-92 10:40:0031 KjpshplmLGOOMCOTQLTK8278-56-43 10:40:008.4 [facility] 2017-04-26 10:40:009.2M PaptcgfdFQXHECAZWFDP5672-09-73 10:40:0075 [place] LUETAMFTORZF9584-81-45 10:40:0022 VgzfqwpcEATFUXSPOVYX9635-20-47 10:40:0014 WmvtwfulKXCDKIGAHY3043-07-46 15:31:00Negative *NA*(04/22/17 9:31 AM) [place] ANEMIA UTJIU9130-54-76 13:14:71350OZ [facility] XNXUW0729-88-92 13:14:965186 [facility] SDGBV2646-65-48 13:14:0016 [facility] GQBCK8627-47-48 13:14:83118CH [facility] UCTWF1013-91-90 13:14:43849VA [facility] STUDY 2017-04-22 13:14:0025 [facility] SJYUQDX0804-42-98 13:14:000.06 [facility] LSRJFNY5238-07-76 13:14:0070 [facility] TUFZSMR5452-16-40 13:14:1479623NR [facility]CHEM EWBVE1745-04-55 13:14:002.4 [facility] PANEL 2017-04-22 13:14:002.2MH [facility] ZPNMI9428-71-05 13:14:00 Test Item Value Reference Range Interpretation Comments B/C Ratio (test code = B/C Ratio) 7 1 6-25 [facility] MTVWA4805[facility]55-66 13:14:00 Test Item Value Reference Range Interpretation Comments A/G Ratio (test code = A/G Ratio) 1.0 1 0.7-1.6 [facility] TARND5671-26-87 13:14:002.9[facility] TWKQK4455-89-51 13:14:002.9[facility] INKWT6874-48-54 13:14[facility]000.6[facility] 2017-04-22 13:14:0018[facility] RHWUV3444-91-60 13:14:0016[facility] YKWBI5486-84-16 13:14:0069[facility] PVEJI9720-25-00 13:14:005.8[facility] IWFPBYNFLW2045-31-21 13:14:000.5[facility] MarylandUsxlweyrUSQQJBKHTJ8064-19-89 13:14:000.6[facility]LzkjrjqmMYDZSWYPUT8609-12-54 13:14:0083.9[facility] MarylandCnmwrpnsZGSCOXLEIC1179-65-95 13:14:000.5[facility] MarylandPehfejwiWDCISRINWN1112-82-26 13:14:000.7[facility] 2017-04-22 13:14:008.2[facility] JacksonvilleYbboiiavJKUEWCOQFI1390-17-67 13:14:006.7[facility] FWMLTUHVWZ3149-22-92 13:14:005.7[facility] MarylandQewoewnvFZHYCOQAFP6905-60-53 13:14:00 Test Item Value Reference Range Interpretation Comments INR (test code = INR) 1.12 1 0.85-1.17 [facility]CohxkhrtHBODXACCYB0745-42-79 13:14:00 Test Item Value Reference Range Interpretation Comments PT (test code = PT) 14.4 s 12.0-14.7 [facility] MarylandEcuyuqymGUPIWJMCDB9679-76-56 13:14:00 Test Item Value Reference Range Interpretation Comments PTT (test code = PTT) 34.0 s 22.9-35.8 [facility] NEIUPSE9844-31-99 09:15:000.04MH [facility] ENZYMES 2017-04-22 09:15:0085[facility] WJQBKHZ0198-20-74 09:15:00<0.6MH [place]ARDI[facility] TKSTKCF5042-24-17 09:15:00<0.5[facility] 2017-04-22 08:38:00Negative (04/22/17 2:38 AM)[facility] UNURS0831-14-11 08:38:0018[facility] ISQFN4894-56-37 08:38:0074[facility] PANEL 2017-04-22 08:38:000.7[facility] LYFXU1897-80-85 08:38:003.1MH [facility] HXDBP6708-18-13 08:38:006.9[facility] HUPPG5090-10-52 08:38:003.8[facility] RYKOI8909-09-94 08:38:00 Test Item Value Reference Range Interpretation Comments A/G Ratio (test code = A/G Ratio) 0.8 1 0.7-1.6 [facility] PVDAQ7420-06-53 08:38:0014[facility] LYWRP9474-47-83 08:38:00 Test Item Value Reference Range Interpretation Comments B/C Ratio (test code = B/C Ratio) 7 1 6-25 [facility] MOHFL1708-21-13 08:38:001.9[facility]temegtaZFHBNEQJML4661-03-36 08:38:00 Test Item Value Reference Range Interpretation Comments INR (test code = INR) 1.10 1 0.85-1.17 [facility] CenterRzzwqfumTZZNVYLDCU5146-87-56 08:38:00 Test Item Value Reference Range Interpretation Comments PT (test code = PT) 14.2 s 12.0-14.7 [facility] CenterKfxzvsexPRGVCLKICU3466-01-99 08:38:00 Test Item Value Reference Range Interpretation Comments PTT (test code = PTT) 37.7 s 22.9-35.8 [facility] CenterUmgkiphmROKXNXOKZR7113-02-16 08:38:000.1[facility]
[2019-08-19 04:15] LABS: Absolute Lymphocytes (CBC) 0.8 K/uL (0.7-4.9); Basophils % 0.7 % (0-1.3); Hematocrit 30.5 % (36.0-45.0); Lymphocytes % 15.3 % (15.3-44.8); MPV 8.1 fL (7.6-11.3); RBC Red Blood Cell Count 3.18 M/uL (3.86-4.86)
[2019-08-19 04:22] LABS: Protime INR 1.23
[2019-08-19 04:38] LABS: Albumin 2.7 g/dL (3.4-5.0); Bilirubin Direct 0.2 mg/dL (0-0.2); Bilirubin Total 0.4 mg/dL (0.2-1.0); Potassium 3.7 mmol/L (3.5-5.1); Protein, Total 6.8 g/dL (6.4-8.2); Troponin (Emerg Dept Use Only) 0.02 ng/mL (0.0-0.045)
[2019-08-19] MEDS ORDERED: FUROSEMIDE 40 MG/4 ML VIAL ONE (06:19)
--- NOTE | 2019-08-19 06:57 | P.HP ---
Certification for Inpatient Patient admitted to: Observation With expected LOS: <2 Midnights Practitioner: I am a practitioner with admitting privileges, knowledge of patient current condition, hospital course, and medical plan of care. Services: Services provided to patient in accordance with Admission requirements found in Title 42 Section 412.3 of the Code of Federal Regulations Patient History Date of Service: 08/19/19 Reason for admission: Shortness of breath History of Present Illness: 8-year-old woman with a history of end-stage renal disease on hemodialysis presented to the emergency department with a complaint of shortness of breath. Patient missed 1 session of hemodialysis. She was complaining of not feeling well during my examination did not have any specific complaint. She endorsed shortness of breath. Chest x-ray done in the emergency department suggested vascular congestion. EKG demonstrated atrial fibrillation with PVCs. Patient is placed under observation to undergo hemodialysis. Allergies ciprofloxacin Allergy (Verified 02/15/19 22:51) Rash fexofenadine Allergy (Verified 02/15/19 22:51) Rash gatifloxacin Allergy (Verified 02/15/19 22:51) Hives/Rash meperidine [From Demerol] Allergy (Verified 08/05/19 00:13) Nausea/Vomiting Penicillins Allergy (Verified 02/15/19 22:51) Hives/Rash pentazocine [From Talwin] Allergy (Verified 02/15/19 22:51) Unknown sulfamethoxazole [From Bactrim] Allergy (Verified 08/05/19 00:13) Hives trimethoprim [From Bactrim] Allergy (Verified 08/05/19 00:13) Hives Home Medications: Aspirin 81 mg PO DAILY 08/05/19 Cholecalciferol (Vitamin D3) [Vitamin D 5,000 IU Cap*] 1 cap PO BEDTIME 08/05/19 Clopidogrel Bisulfate [Plavix*] 75 mg PO DAILY 08/05/19 Cranberry Conc/Ascorbic Acid [Cranberry Plus Vitamin C Sftgl] 1 cap PO BID 08/05/19 Doxazosin Mesylate 8 mg PO BID 08/05/19 Folic Acid/Vit B Complex and C [Dialyvite 800 Chewable Wafer] 800 mg PO BEDTIME 08/05/19 Isosorbide Mononitrate [Isosorbide Mononitrate ER] 3 tab PO DAILY 08/05/19 Megestrol [Megace*] 40 mg PO BREAKFAST 08/05/19 NIFEdipine [Nifedipine ER] 90 mg PO BID 08/05/19 Ramipril [Altace] 10 mg PO BEDTIME 08/05/19 Sertraline [Zoloft*] 50 mg PO BEDTIME 08/05/19 Hydralazine HCl [Apresoline] 100 mg PO TID #90 tablet 08/07/19 - Past Medical/Surgical History Diabetic: Yes -: DEPRESSION -: CHRONIC KIDNEY DISEASE ON HD -: CAD -: MALIGNANT HYPERTENSION -: HYPERLIPIDEMIA -: AORTIC STENOSIS -: RENAL ARTERY STENOSIS -: DM -: CHF -: ESRD -: STENT PLACEMENT -: gall bladder removed -: R kidney stent placement -: cataract bilateral repair -: left carotid artery repair. -: left AVF -: hysterectomy -: appendectomy - Family History Sister -: Heart disease Brother -: Heart disease, Cancer - Social History Alcohol use: No CD- Drugs: Yes Caffeine use: Yes Review of Systems Other: She denied any fever or cough or chest pain. She denied any abdominal pain or diarrhea or vomiting. Except as documented, all other systems reviewed and negative. Physical Examination - Physical Exam General: Alert, In no apparent distress HEENT: PERRLA, Sclerae nonicteric Neck: Supple, JVD not distended Respiratory: Diminished, Other (Mild bibasilar crackles) Cardiovascular: No edema, Normal S1 S2, Irregular heart rate/rhythm Capillary refill: <2 Seconds Gastrointestinal: Normal bowel sounds, Soft and benign, Non-distended, No tenderness Musculoskeletal: No swelling, No erythema Integumentary: No rashes Neurological: Normal strength at 5/5 x4 extr - Studies Laboratory Data (last 24 hrs) 08/19/19 04:07: PT 14.4 H, INR 1.23, APTT 30.6 08/19/19 04:07: Sodium 134 L, Potassium 3.7, BUN 33 H, Creatinine 6.84 H* D, Glucose 87, Total Bilirubin 0.4, AST 21, ALT 14, Alkaline Phosphatase 82 08/19/19 04:07: WBC 5.3, Hgb 10.1 L, Hct 30.5 L, Plt Count 245 Assessment and Plan - Problems (Diagnosis) (1) Pulmonary edema Current Visit: No Status: Acute (2) ESRD (end stage renal disease) Current Visit: No Status: Acute (3) Anemia in chronic kidney disease Current Visit: No Status: Acute (4) Diabetes mellitus type 2 in nonobese Current Visit: No Status: Acute (5) HTN (hypertension) Current Visit: No Status: Chronic Qualifiers: (6) Atrial fibrillation Current Visit: Yes Status: Acute - Plan Place under observation. Consult nephrology for hemodialysis Continue home medication for other stable comorbidities. Continue home antihypertensives. Start Coumadin for afib Cardiology Consult. - Advance Directives Does patient have a Living Will: Yes Does patient have a Durable POA for Healthcare: Yes
[2019-08-19] MEDS ORDERED: ALBUTEROL 2.5 MG/3 ML NEB SOL NEB PRN (09:23)
[2019-08-19] MEDS ORDERED: ONDANSETRON 4 MG/2 ML VIAL IV PRN (09:23)
[2019-08-19] MEDS: ACETAMINOPHEN 500 MG TAB PO PRN (09:45)
[2019-08-19 10:36] LABS: Protime INR 1.22
--- NOTE | 2019-08-19 11:32 | RAD REPORT ---
EXAM DESCRIPTION: [place] Single View08/19/2019 4:02 am CLINICAL HISTORY: Cough COMPARISON: August 03 FINDINGS: Mild bilateral pulmonary opacities Heart is mildly enlarged. Right hemidiaphragm remains elevated IMPRESSION: Mild CHF
--- NOTE | 2019-08-19 12:46 | RAD REPORT ---
EXAM DESCRIPTION: CT - Head Brain Wo Cont - 08/19/2019 6:25 am CLINICAL HISTORY: HEADACHE COMPARISON: 08/04/2019. TECHNIQUE: CT HEAD WITHOUT IV CONTRAST on 08/19/2019 3:40 AM CDT This exam was performed according to our departmental dose-optimization program, which includes autom ated exposure control, adjustment of the mA and/or kV according to patient size and/or use of iterati ve reconstruction technique. FINDINGS: There is no acute hemorrhage, mass effect or midline shift. Carreno-white differentiation is preserved. There is no hydrocephalus. There is no significant volume loss for age. There are mild pat severo hypodensities within the periventricular and subcortical white matter, consistent with microangio pathic ischemic changes. The calvarium is intact. Orbits and globes are unremarkable. The paranasal sinuses are clear. Mastoid air cells are clear. IMPRESSION: No acute intracranial findings. Electronically signed by: Panda Bishop MD 08/19/2019 4:40 AM CDT Due to temporary technical issues with the PACS/Fluency reporting system, reports are being signed by the in house radiologist without review as a courtesy to ensure prompt reporting. The interpreting r adiologist is fully responsible for the content of the report.
[2019-08-19] MEDS: ramipriL 5 MG CAP PO SCH (16:56)
[2019-08-19] MEDS: TRAMADOL HCL 50 MG TAB PO SCH ×2 (16:57→23:08)
[2019-08-19] MEDS: NIFEDIPINE XL 90 MG TABLET PO SCH (16:57)
[2019-08-19] MEDS: HYDRALAZINE HCL 25 MG TABLET PO SCH (16:57)
[2019-08-19] MEDS ORDERED: DOXAZOSIN 2 MG TAB ONE ×2 (16:59→20:15)
--- NOTE | 2019-08-19 19:42 | CON ---
Date of Consultation: 08/19/2019 Reason For Consultation: Atrial fibrillation. History Of Present Illness: This is an 88-year-old female with end-stage renal disease, on hemodialy sis, presented to the ER with shortness of breath. She missed 1 session of hemodialysis, was admitte d for fluid overload, for management of fluid status with dialysis. Denies having any other specific complaints. She is found to have atrial fibrillation on EKG; however, rate is controlled and no tac hycardia or palpitations. Denies having any chest pain. No other pertinent cardiac complaints. Past Medical History: End-stage renal disease, congestive heart failure, diabetes, coronary artery d isease, aortic stenosis, dyslipidemia, carotid stenosis. Past Surgical History: Appendectomy, hysterectomy, cardiac stent, carotid artery surgery, dialysis a ccess. Medications: See detailed list. Allergies: MULTIPLE ALLERGY AND LIST WAS REVIEWED. Family History: No premature coronary artery disease. Social History: Does not smoke or drink. Does not use any drugs. Family History: No premature coronary artery disease or cancer. Review of Systems: All systems reviewed and they were negative except what is mentioned in the HPI. Physical Examination: Vital Signs: Temperature of 97.5, pulse of 80, breathing at 18, blood pressure 186/86, saturating 98 %. General: Pleasant elderly female, in no distress. Head and Neck: Pupils are equal, react to light. Intact eye movements. No JVD. No cervical lympha denopathy. Neck is supple. Thyroid is not enlarged. Lungs: Decreased breathing sounds bilaterally. No accessory muscle use or muscle retraction. Heart: Irregularly irregular with aortic systolic murmur. Abdomen: Soft, nontender. Bowel sounds positive. No organomegaly. No masses or hernia. No rigidi ty or rebound. Extremities: No clubbing, cyanosis. Positive edema. Skin: No rash. Neurologic: Alert, awake, oriented x3. No acute focal deficits appreciated. Investigations: Creatinine 6.84. NT-proBNP is 53,288. White blood cell count is 5.3, hemoglobin 10 .1. Chest x-ray, mild CHF and head CT without acute abnormalities. Assessment And Recommendations: 1.Atrial fibrillation. Rate is controlled. She is not a candidate for anticoagulation due to fall risk. Recommend to continue rate-controlling agents. If needed, low-dose metoprolol. At this point , she seems to be rate control even without medications. This can be watched and if heart rate goes up, then add low dose 12.5 mg twice a day of metoprolol and recommend aspirin 81 mg daily. 2.Congestive heart failure with fluid overload. Proceed with dialysis as planned and obtain echocar diogram. 3.Hypertension. Blood pressure probably will be difficult to control unless dialysis gets done and then will be started on low-dose Norvasc if need be. Thank you for this consultation. /MELISSA Voice ID: [id number] Report ID: [id number]
[2019-08-19] MEDS: MELATONIN 5 MG TABLET PO SCH (20:28)
[2019-08-19] MEDS: SERTRALINE HCL 50 MG TAB PO SCH (20:28)
[2019-08-19] MEDS: DOXAZOSIN 4 MG TAB PO SCH (20:28)
[2019-08-19] MEDS ORDERED: DOXAZOSIN MESYLATE 8 MG PO SCH (21:00)
[2019-08-19] MEDS ORDERED: HOME MED 1 EA UNK (Ramipril [Altace] 10 MG) PO SCH (21:00)
[2019-08-19] MEDS ORDERED: HOME MED 1 EA UNK (Hydralazine Hcl [Apresoline] 100 MG) PO SCH (21:00)
[2019-08-20] MEDS: TRAMADOL HCL 50 MG TAB PO SCH ×4 (05:17→17:15)
[2019-08-20 05:31] LABS: Absolute Lymphocytes (CBC) 0.9 K/uL (0.7-4.9); Basophils % 0.6 % (0-1.3); Hematocrit 29.6 % (36.0-45.0); Lymphocytes % 11.3 % (15.3-44.8); MPV 7.7 fL (7.6-11.3); RBC Red Blood Cell Count 3.02 M/uL (3.86-4.86)
[2019-08-20 06:00] VITALS: BMI 24.7
--- NOTE | 2019-08-20 07:42 | P.PN ---
Subjective Date of Service: 08/20/19 Chief Complaint: Shortness of breath Patient complaining of left flank pain. She states the pain is chronic. Noted she has history of polycystic kidney. Physical Examination - Vital Signs Temperature: 97.9 F Blood Pressure: 166/73 Pulse: 70 Respirations: 16 Pulse Ox (%): 98 - Physical Exam General: Alert, In no apparent distress HEENT: Mucous membr. moist/pink Neck: Supple Respiratory: Clear to auscultation bilaterally, Normal air movement Cardiovascular: No edema, Normal S1 S2, Irregular heart rate/rhythm Capillary refill: <2 Seconds Gastrointestinal: Normal bowel sounds, Soft and benign, Non-distended, Tenderness (Left flank tenderness) Musculoskeletal: No swelling, No erythema Neurological: Normal strength at 5/5 x4 extr Assessment And Plan - Current Problems (Diagnosis) (1) Pulmonary edema Current Visit: No Status: Acute (2) ESRD (end stage renal disease) Current Visit: No Status: Acute (3) Anemia in chronic kidney disease Current Visit: No Status: Acute (4) Diabetes mellitus type 2 in nonobese Current Visit: No Status: Acute (5) HTN (hypertension) Current Visit: No Status: Chronic Qualifiers: (6) Atrial fibrillation Current Visit: Yes Status: Acute - Plan Nephrology consulted for hemodialysis. Cardiology input appreciated. Low dose metoprolol if her heart rate goes up, otherwise no intervention. Continue home medication for other stable comorbidities. Continue home antihypertensives. No anticoagulation due to risk of falls per cardiology. Obtain renal ultrasound due to complaint of left flank pain.
--- NOTE | 2019-08-20 08:51 | RAD REPORT ---
EXAM DESCRIPTION: US - Renal Ultrasound-Complete - 08/20/2019 8:43 am CLINICAL HISTORY: Polycystic kidney with left flank pain COMPARISON: Abdomen Pelvis Wo Contrast dated 07/22/2017 FINDINGS: The right kidney measures 11.2 x 5.2 x 5.9 cm. The left kidney measures 9.4 x 4.6 x 4.3 c m. Cortical thickness and echogenicity are normal. The patient has numerous variably sized cysts thro ughout both kidneys. If you have some minimal echogenic debris. No hydronephrosis of either kidney. N o large calculi seen. No solid mass of either kidney identifiable. Bladder is only partially filled. No wall thickening or mass of the bladder wall seen. There is a mod erately large volume of layering echogenic debris. Correlation can be made with UA findings. Old hemo rrhagic material can have this appearance as well. IMPRESSION: Polycystic kidney pattern with no hydronephrosis of either kidney. No solid mass of either kidney. Moderately large volume of echogenic debris in the urinary bladder.
[2019-08-20] MEDS: ISOSORBIDE MONO SR 30 MG TAB PO SCH (09:00)
[2019-08-20] MEDS: CLOPIDOGREL 75 MG TABLET PO SCH (09:00)
[2019-08-20] MEDS: DOCUSATE NA 100 MG CAP PO SCH (09:00)
[2019-08-20] MEDS: HYDRALAZINE HCL 25 MG TABLET PO SCH ×3 (09:00→22:13)
[2019-08-20] MEDS: NIFEDIPINE XL 90 MG TABLET PO SCH ×2 (09:00→22:15)
[2019-08-20] MEDS: DOXAZOSIN 4 MG TAB PO SCH ×2 (09:00→21:00)
[2019-08-20] MEDS: ASPIRIN 81 MG CHEWABLE TABLET PO SCH (09:00)
[2019-08-20] MEDS: ATORVASTATIN 80 MG TAB PO SCH (09:00)
[2019-08-20] MEDS: MEGESTROL 400 MG/10 ML UCUP PO SCH (09:15)
[2019-08-20] MEDS ORDERED: NA CHLORIDE 0.9% 1,000 ML IV PRN (09:26)
[2019-08-20] MEDS ORDERED: MANNITOL 25% 12.5 GM/50 ML VIAL IV PRN (09:26)
--- NOTE | 2019-08-20 09:33 | P.CNS ---
Date of Consult: 08/20/19 Reason for Consult: ESRD Requesting Physician: guerita means Chief Complaint: Shortness of breath History of Present Illness: 88 yo BF CKD, DM presented to the ER with 1-2 days of moderate, persistent dyspnea in the setting of CHF. She recently missed an HD session. Allergies ciprofloxacin Allergy (Verified 02/15/19 22:51) Rash fexofenadine Allergy (Verified 02/15/19 22:51) Rash gatifloxacin Allergy (Verified 02/15/19 22:51) Hives/Rash meperidine [From Demerol] Allergy (Verified 08/05/19 00:13) Nausea/Vomiting Penicillins Allergy (Verified 02/15/19 22:51) Hives/Rash pentazocine [From Talwin] Allergy (Verified 02/15/19 22:51) Unknown sulfamethoxazole [From Bactrim] Allergy (Verified 08/05/19 00:13) Hives trimethoprim [From Bactrim] Allergy (Verified 08/05/19 00:13) Hives Home medications list reviewed: Yes Home Medications: Aspirin 81 mg PO DAILY 08/05/19 Cholecalciferol (Vitamin D3) [Vitamin D 5,000 IU Cap*] 1 cap PO BEDTIME 08/05/19 Clopidogrel Bisulfate [Plavix*] 75 mg PO DAILY 08/05/19 Cranberry Conc/Ascorbic Acid [Cranberry Plus Vitamin C Sftgl] 1 cap PO BID 08/05/19 Doxazosin Mesylate 8 mg PO BID 08/05/19 Folic Acid/Vit B Complex and C [Dialyvite 800 Chewable Wafer] 800 mg PO BEDTIME 08/05/19 Isosorbide Mononitrate [Isosorbide Mononitrate ER] 3 tab PO DAILY 08/05/19 Megestrol [Megace*] 40 mg PO BREAKFAST 08/05/19 NIFEdipine [Nifedipine ER] 90 mg PO BID 08/05/19 Ramipril [Altace] 10 mg PO BEDTIME 08/05/19 Sertraline [Zoloft*] 50 mg PO BEDTIME 08/05/19 Hydralazine HCl [Apresoline] 100 mg PO TID #90 tablet 08/07/19 Acetaminophen [Tylenol Extra Strength] 500 mg PO Q6HR 08/19/19 Atorvastatin Calcium [Lipitor] 80 mg PO DAILY 08/19/19 Docusate [Colace Cap*] 100 mg PO DAILY 08/19/19 Mecobalamin [B12 Active] 1,000 mcg PO DAILY 08/19/19 Melatonin 5 mg PO BEDTIME 08/19/19 Tramadol HCl [Ultram] 50 mg PO Q6HR 08/19/19 - Past Medical/Surgical History Diabetic: Yes -: DEPRESSION -: CHRONIC KIDNEY DISEASE ON HD -: CAD -: MALIGNANT HYPERTENSION -: HYPERLIPIDEMIA -: AORTIC STENOSIS -: RENAL ARTERY STENOSIS -: DM -: CHF -: ESRD -: STENT PLACEMENT -: gall bladder removed -: R kidney stent placement -: cataract bilateral repair -: left carotid artery repair. -: left AVF -: hysterectomy -: appendectomy - Family History Sister Medical History: Heart disease Brother Medical History: Heart disease, Cancer - Social History Smoking Status: Unknown if ever smoked Alcohol use: No CD- Drugs: Yes Caffeine use: Yes Review of Systems 10-point ROS is otherwise unremarkable General: Weakness, Malaise Respiratory: SOB with Excertion Neurological: Weakness Physical Examination Temp Pulse Resp BP Pulse Ox 97.9 F 70 16 166/73 H 98 08/20/19 07:42 08/20/19 07:42 08/20/19 07:42 08/20/19 07:42 08/20/19 07:42 General: In no apparent distress, Oriented x3, Cooperative HEENT: Atraumatic Neck: Supple Respiratory: Clear to auscultation bilaterally Cardiovascular: No edema, Regular rate/rhythm Gastrointestinal: Soft and benign, Non-distended Musculoskeletal: No clubbing, No contractures Integumentary: No rashes, No cyanosis Neurological: Normal speech Blood work reviewed in the chart. Imagings Data: EXAM DESCRIPTION: [place] Single View08/19/2019 4:02 am CLINICAL HISTORY: Cough COMPARISON: August 03 FINDINGS: Mild bilateral pulmonary opacities Heart is mildly enlarged. Right hemidiaphragm remains elevated IMPRESSION: Mild CHF Conclusions/Impression: A/ ESRD on HD. HTN with CKD/ CHF. Diastolic CHF, A/C. DM II with CKD. Anemia in CKD. TALIA/ Secondary HyperPTH. P/ Continue current POC and Medications. Arrange for acute HD with UF. Restart home medications as indicated. Give Retacrit. Low sodium diet. No NSAIDs. AM labs. Daily weight. Thank you kindly for the consultation.
[2019-08-20] MEDS: EPOETIN ALFA-EPBX 10,000 UNIT/ML VIAL SQ ONE ×2 (09:45→18:46)
[2019-08-20] MEDS ORDERED: ALBUMIN HUMAN 25% 50 ML IV SCH (10:00)
[2019-08-20] MEDS ORDERED: ALBUTEROL 2.5 MG/3 ML NEB SOL NEB PRN (15:00)
[2019-08-20] MEDS ORDERED: METOPROLOL TARTRATE 5 MG/5 ML INJ IV STA (16:18)
--- NOTE | 2019-08-20 17:20 | RAD REPORT ---
EXAM DESCRIPTION: RAD - Chest Single View - 08/20/2019 4:35 pm CLINICAL HISTORY: chest pain Chest pain. COMPARISON: Chest Single View dated 08/19/2019; Chest Single View dated 08/04/2019; Chest Single View dated 06/08/2019; Chest Single View dated 05/11/2019 FINDINGS: Portable technique limits examination quality. Since 08/19/2019, little overall change is seen in appearance the chest. Mild bilateral pulmonary opa cities persist with probable small pleural effusions. The heart is mildly enlarged in size. IMPRESSION: Stable chest since 08/19/2019.
[2019-08-20] MEDS: ACETAMINOPHEN 500 MG TAB PO PRN (18:38)
--- NOTE | 2019-08-20 18:38 | ER ---
Nurse's Notes [facility] Name: Erendira Graham Age: 88 yrs Sex: Female : 1930 Arrival Date: 08/19/2019 Time: 02:38 Bed 6 Private MD: Diagnosis: Pulmonary edema;End stage renal disease Presentation: 08/18 02:55 Chief complaint: Patient states: I just woke, and felt nauseated and just weak. sg Coronavirus screen: Proceed with normal triage. Ebola Screen: Patient negative for fever greater than or equal to 101.5 degrees Fahrenheit, and additional compatible Ebola Virus Disease symptoms Patient denies exposure to infectious person. Patient denies travel to an Ebola-affected area in the 21 days before illness onset. No symptoms or risks identified at this time. Initial Sepsis Screen: Does the patient meet any 2 criteria? HR > 90 bpm. No. Patient's initial sepsis screen is negative. Does the patient have a suspected source of infection? No. Patient's initial sepsis screen is negative. Risk Assessment: Do you want to hurt yourself or someone else? Patient reports no desire to harm self or others. Onset of symptoms was August 19, 2019. Care prior to arrival: None. 02:55 Method Of Arrival: Wheelchair sg 02:55 Acuity: KEKE 3 sg Historical: - Allergies: 02:58 Karlene; sg 02:58 Bactrim; sg 02:58 Ciprofloxacin; sg 02:58 Demerol; sg 02:58 PENICILLINS; sg 02:58 Talwin; sg 02:58 tequin; sg - Home Meds: 03:30 acetaminophen-codeine 300-30 mg Oral tab 1 tab as needed for Pain [Active]; aspirin 81 rr5 mg Oral TbEC 1 tab once daily [Active]; clonidine HCl 0.3 mg Oral tab 1 tab 2 times per day [Active]; DIALYVITE 800 0.8 mg Oral tab [Active]; docusate sodium 100 mg Oral tab 2 times per day [Active]; doxazosin 8 mg Oral tab twice a day [Active]; hydralazine 100 mg Oral tab 3 times per day [Active]; isosorbide mononitrate 30 mg Oral Tb24 twice a day [Active]; melatonin 5 mg Oral tab nightly [Active]; minoxidil 2.5 mg Oral tab 1 tabs 2 times per day [Active]; nifedipine 90 mg Oral TbER twice a day [Active]; sertraline 50 mg Oral tab 1 tab once daily [Active]; Tums 300 mg (750 mg) Oral chew [Active]; Vitamin D Oral 5000 unit daily [Active]; Plavix 75 mg Oral tab 1 tab once daily [Active]; - PMHx: 02:58 CHF; Diabetes - NIDDM; Dialysis; ESRD; Hypertension; sg - PSHx: 02:58 Hysterectomy; Cholecystectomy; sg - Immunization history:: Adult Immunizations up to date. - Social history:: Smoking status: Patient denies any tobacco usage or history of. Screenin:00 Abuse screen: Denies threats or abuse. Denies injuries from another. Nutritional rr5 screening: No deficits noted. Tuberculosis screening: No symptoms or risk factors identified. Fall Risk IV access (20 points). Gait- Weak (10 pts.). Mental Status- Oriented to own ability (0 pts). Total Paris Fall Scale indicates High Risk Score (45 or more points). Fall prevention measures have been instituted. Side Rails Up X 2 Placed Close to Nursing Station Frequent Obs/Assessments Occuring As available patient and family educated on Fall Prevention Program and Strategies. Assessment: 03:00 General: Appears in no apparent distress. uncomfortable, Behavior is calm, cooperative, rr5 appropriate for age, Reports fatigue for weak does not feel good. 03:00 Pain: Complains of pain in head Pain Quality of pain is described as aching, Pain began rr5 gradually, Is intermittent. Neuro: Level of Consciousness is awake, alert, obeys commands, Oriented to person, place, time, situation, Appropriate for age Reports headache. Cardiovascular: Capillary refill < 3 seconds Patient's skin is warm and dry. Dialysis shunt: in the left arm, with palpable thrill, with auscultated bruit, with no erythema, with no edema, no bleeding noted. Respiratory: Airway is patent Respiratory effort is even, unlabored, Respiratory pattern is regular, symmetrical. GI: No signs and/or symptoms were reported involving the gastrointestinal system. : No signs and/or symptoms were reported regarding the genitourinary system. EENT: No signs and/or symptoms were reported regarding the EENT system. Derm: Skin is fragile, is thin, Skin temperature is warm. Musculoskeletal: Circulation, motion, and sensation intact. Capillary refill < 3 seconds. 04:00 Reassessment: Patient appears in no apparent distress at this time. Patient is alert, rr5 oriented x 3, equal unlabored respirations, skin warm/dry/pink. send for CT scan. 04:51 Reassessment: Patient appears in no apparent distress at this time. No changes from rr5 previously documented assessment. Patient and/or family updated on plan of care and expected duration. Pain level reassessed. Patient is alert, oriented x 3, equal unlabored respirations, skin warm/dry/pink. awaiting for results. 05:08 Reassessment: pt daughter Adelaida requesting information about patient at this time, sg would like to be contacted at [phone]. 06:00 Reassessment: Patient appears in no apparent distress at this time. Patient is alert, rr5 oriented x 3, equal unlabored respirations, skin warm/dry/pink. resting eyes closed, breathing spontaneously at room air. reassessment done by ED provider for admission. 08:20 Reassessment: Attempted to call report, nurse to call back. sv Vital Signs: 02:55 BP 152 / 78; Pulse 135; Resp 19; Temp 98.5; Pulse Ox 97% ; rr5 04:15 BP 165 / 85; Pulse 74; Resp 20; Pulse Ox 96% ; rr5 04:51 BP 162 / 69; Pulse 85; Resp 16; Pulse Ox 95% on R/A; rr5 05:24 BP 167 / 55; Pulse 74; Resp 16; Pulse Ox 97% on R/A; rv 06:30 BP 162 / 49; Pulse 85; Resp 17; Pulse Ox 92% on 3 lpm NC; rr5 07:21 BP 166 / 57; Pulse 68; Resp 17; Pulse Ox 98% ; sv 08:18 BP 160 / 81; Pulse 64; Resp 18; Pulse Ox 98% ; sv ED Course: 02:38 Patient arrived in ED. ds1 02:59 Triage completed. sg 02:59 Arm band placed on. EKG completed in triage. Results shown to MD. EKG completed in sg triage. Results shown to MD. 03:00 Patient has correct armband on for positive identification. Bed in low position. Call rr5 light in reach. Side rails up X2. commercial hvac service technician on. Pulse ox on. NIBP on. 03:01 Venkat Mercado MD is Attending Physician. [facility] 03:41 Min Alvarez, RN is Primary Nurse. rr5 04:02 Chest Single View XRAY In Process Unspecified. EDMS 04:08 EKG done, by ED staff, reviewed by Venkat Mercado MD. Inserted saline lock: 20 gauge in rr5 right forearm, using aseptic technique. Blood collected. 04:35 CT Head Brain wo Cont In Process Unspecified. EDMS 06:12 Niels Nation is Hospitalizing Provider. [facility] Administered Medications: 06:19 Drug: Lasix 40 mg Route: IVP; Site: right hand; rr5 Outcome: 06:13 Decision to Hospitalize by Provider. [facility] 08:59 Patient left the ED. sv Signatures: Dispatcher [employer] EDAR Arti Del Toro RN RN Alfa Mccauley RN RN Maryam Greenberg ds1 Nolberto Mercado RN RN Min Alvarez, RN RN rr5 Venkat Mercado MD MD [facility]
--- NOTE | 2019-08-20 18:38 | EDPHYS ---
Physician Documentation [facility] Name: Erendira Graham Age: 88 yrs Sex: Female : 1930 Arrival Date: 08/19/2019 Time: 02:38 Bed 6 Private MD: ED Physician Venkat Mercado HPI: 08/18 04:32 This 88 yrs old Black Female presents to ER via Wheelchair with complaints of Weakness, mh7 nausea.. 04:32 The patient's problem is reported as weakness, that is generalized. Onset: The mh7 symptoms/episode began/occurred last night. Duration: The episode is continuous. Context: occurred at home, occurred while the patient was sitting. The symptoms are alleviated by nothing. The symptoms are aggravated by nothing. Associated signs and symptoms: Pertinent positives: headache, nausea, Pertinent negatives: abdominal pain, agitation, ataxia, blurred vision, chest pain, combativeness, confusion, diaphoresis, diarrhea, dizziness, lightheadedness, numbness, palpitations, seizure, shortness of breath, tingling, vertigo, vomiting. Severity of symptoms: At their worst the symptoms were moderate today, in the emergency department the symptoms have improved moderately. Patient complains of generally not feeling well which includes generalized fatigue and weakness. She has also had some headache and nausea.. Historical: - Allergies: 02:58 Karlene; sg 02:58 Bactrim; sg 02:58 Ciprofloxacin; sg 02:58 Demerol; sg 02:58 PENICILLINS; sg 02:58 Talwin; sg 02:58 tequin; sg - Home Meds: 03:30 acetaminophen-codeine 300-30 mg Oral tab 1 tab as needed for Pain [Active]; aspirin 81 rr5 mg Oral TbEC 1 tab once daily [Active]; clonidine HCl 0.3 mg Oral tab 1 tab 2 times per day [Active]; DIALYVITE 800 0.8 mg Oral tab [Active]; docusate sodium 100 mg Oral tab 2 times per day [Active]; doxazosin 8 mg Oral tab twice a day [Active]; hydralazine 100 mg Oral tab 3 times per day [Active]; isosorbide mononitrate 30 mg Oral Tb24 twice a day [Active]; melatonin 5 mg Oral tab nightly [Active]; minoxidil 2.5 mg Oral tab 1 tabs 2 times per day [Active]; nifedipine 90 mg Oral TbER twice a day [Active]; sertraline 50 mg Oral tab 1 tab once daily [Active]; Tums 300 mg (750 mg) Oral chew [Active]; Vitamin D Oral 5000 unit daily [Active]; Plavix 75 mg Oral tab 1 tab once daily [Active]; - PMHx: 02:58 CHF; Diabetes - NIDDM; Dialysis; ESRD; Hypertension; sg - PSHx: 02:58 Hysterectomy; Cholecystectomy; sg - Immunization history:: Adult Immunizations up to date. - Social history:: Smoking status: Patient denies any tobacco usage or history of. ROS: 04:32 Constitutional: Negative for fever, chills, and weight loss, Eyes: Negative for injury, mh7 pain, redness, and discharge, ENT: Negative for injury, pain, and discharge, Neck: Negative for injury, pain, and swelling, Cardiovascular: Negative for chest pain, palpitations, and edema, Respiratory: Negative for shortness of breath, cough, wheezing, and pleuritic chest pain, Back: Negative for injury and pain, : Negative for injury, bleeding, discharge, and swelling, MS/Extremity: Negative for injury and deformity, Skin: Negative for injury, rash, and discoloration, Psych: Negative for depression, anxiety, suicide ideation, homicidal ideation, and hallucinations, Allergy/Immunology: Negative for hives, rash, and allergies, Endocrine: Negative for neck swelling, polydipsia, polyuria, polyphagia, and marked weight changes, Hematologic/Lymphatic: Negative for swollen nodes, abnormal bleeding, and unusual bruising. Exam: 04:32 Constitutional: This is a well developed, well nourished patient who is awake, alert, mh7 and in no acute distress. Head/Face: Normocephalic, atraumatic. Eyes: Pupils equal round and reactive to light, extra-ocular motions intact. Lids and lashes normal. Conjunctiva and sclera are non-icteric and not injected. Cornea within normal limits. Periorbital areas with no swelling, redness, or edema. ENT: Nares patent. No nasal discharge, no septal abnormalities noted. Tympanic membranes are normal and external auditory canals are clear. Oropharynx with no redness, swelling, or masses, exudates, or evidence of obstruction, uvula midline. Mucous membranes moist. Neck: Trachea midline, no thyromegaly or masses palpated, and no cervical lymphadenopathy. Supple, full range of motion without nuchal rigidity, or vertebral point tenderness. No Meningismus. Chest/axilla: Normal chest wall appearance and motion. Nontender with no deformity. No lesions are appreciated. Cardiovascular: Regular rate and rhythm with a normal S1 and S2. No gallops, murmurs, or rubs. Normal PMI, no JVD. No pulse deficits. Respiratory: Lungs have equal breath sounds bilaterally, clear to auscultation and percussion. No rales, rhonchi or wheezes noted. No increased work of breathing, no retractions or nasal flaring. Abdomen/GI: Soft, non-tender, with normal bowel sounds. No distension or tympany. No guarding or rebound. No evidence of tenderness throughout. Back: No spinal tenderness. No costovertebral tenderness. Full range of motion. Skin: Warm, dry with normal turgor. Normal color with no rashes, no lesions, and no evidence of cellulitis. MS/ Extremity: Pulses equal, no cyanosis. Neurovascular intact. Full, normal range of motion. Neuro: Awake and alert, GCS 15, oriented to person, place, time, and situation. Cranial nerves II-XII grossly intact. Motor strength 5/5 in all extremities. Sensory grossly intact. Cerebellar exam normal. Normal gait. Psych: Awake, alert, with orientation to person, place and time. Behavior, mood, and affect are within normal limits. 06:13 Radiologist reports: No acute findings [facility] Vital Signs: 02:55 BP 152 / 78; Pulse 135; Resp 19; Temp 98.5; Pulse Ox 97% ; rr5 04:15 BP 165 / 85; Pulse 74; Resp 20; Pulse Ox 96% ; rr5 04:51 BP 162 / 69; Pulse 85; Resp 16; Pulse Ox 95% on R/A; rr5 05:24 BP 167 / 55; Pulse 74; Resp 16; Pulse Ox 97% on R/A; rv 06:30 BP 162 / 49; Pulse 85; Resp 17; Pulse Ox 92% on 3 lpm NC; rr5 07:21 BP 166 / 57; Pulse 68; Resp 17; Pulse Ox 98% ; sv 08:18 BP 160 / 81; Pulse 64; Resp 18; Pulse Ox 98% ; sv MDM: 03:31 Patient medically screened. [facility] 06:10 Differential diagnosis: CVA, Dementia, Alzheimer disease, metabolic disorder, CHF [facility] exacerbation, pulmonary edema. Data reviewed: vital signs, nurses notes, EMS record, lab test result(s), EKG, radiologic studies, plain films. 08/18 03:40 Order name: CBC with Diff; Complete Time: 05:53 [facility] 08/18 03:40 Order name: Basic Metabolic Panel; Complete Time: 05:53 [facility] 08/18 03:40 Order name: Protime (+inr); Complete Time: 05:53 [facility] 08/18 03:40 Order name: Ptt, Activated; Complete Time: 05:53 [facility] 08/18 03:40 Order name: Troponin (emerg Dept Use Only); Complete Time: 05:53 [facility] 08/18 03:40 Order name: LFT's; Complete Time: 05:53 [facility] 08/18 03:40 Order name: Urine Microscopic Only [facility] 08/18 03:40 Order name: EKG - Nurse/Tech; Complete Time: 06:30 [facility] 08/18 03:40 Order name: Chest Single View XRAY [facility] 08/18 03:40 Order name: CT Head Brain wo Cont [facility] 08/18 06:10 Order name: PROBNP [facility] Administered Medications: 06:19 Drug: Lasix 40 mg Route: IVP; Site: right hand; rr5 Disposition: 08/19/19 06:13 Hospitalization ordered by Niels Nation for Inpatient Admission. Preliminary diagnosis are Pulmonary edema, End stage renal disease. - Bed requested for Telemetry/MedSurg (Inpatient). - Status is Inpatient Admission. sv - Condition is Stable. - Problem is an acute exacerbation. - Symptoms have improved. Signatures: Dispatcher [employer] Arti Santos RN RN sv Gay, Steven, RN RN sg Botello, Elizabeth eb Roque, Raymond, RN RN rr5 Venkat Mercado MD MD 7 Corrections: (The following items were deleted from the chart) 07:46 06:13 Hospitalization Ordered by Niels Nation for Inpatient Admission. Preliminary eb diagnosis is Pulmonary edema; End stage renal disease. Bed requested for Telemetry/MedSurg (Inpatient). Status is Inpatient Admission. Condition is Stable. Problem is an acute exacerbation. Symptoms have improved. mh7 08:59 07:46 08/19/2019 06:13 Hospitalization Ordered by Niels Nation for Inpatient sv Admission. Preliminary diagnosis is Pulmonary edema; End stage renal disease. Bed requested for Telemetry/MedSurg (Inpatient). Status is Inpatient Admission. Condition is Stable. Problem is an acute exacerbation. Symptoms have improved. eb
[2019-08-20] MEDS: JUVEN PACKET PO SCH (21:00)
[2019-08-20] MEDS: MELATONIN 5 MG TABLET PO SCH (22:14)
[2019-08-20] MEDS: SERTRALINE HCL 50 MG TAB PO SCH (22:14)
[2019-08-20] MEDS: ramipriL 5 MG CAP PO SCH (22:14)
[2019-08-20] MEDS ORDERED: DOXAZOSIN 2 MG TAB ONE (22:20)
[2019-08-21] MEDS: TRAMADOL HCL 50 MG TAB PO SCH ×4 (01:09→18:00)
[2019-08-21 06:30] LABS: Absolute Lymphocytes (CBC) 0.6 K/uL (0.7-4.9); Basophils % 0.7 % (0-1.3); Hematocrit 30.4 % (36.0-45.0); Lymphocytes % 12.3 % (15.3-44.8); RBC Red Blood Cell Count 3.13 M/uL (3.86-4.86)
[2019-08-21 06:34] LABS: Potassium 4.2 mmol/L (3.5-5.1)
[2019-08-21] MEDS: MEGESTROL 400 MG/10 ML UCUP PO SCH (09:23)
[2019-08-21] MEDS: DOCUSATE NA 100 MG CAP PO SCH (09:23)
[2019-08-21] MEDS: ATORVASTATIN 80 MG TAB PO SCH (09:23)
[2019-08-21] MEDS: ASPIRIN 81 MG CHEWABLE TABLET PO SCH (09:24)
[2019-08-21] MEDS: NIFEDIPINE XL 90 MG TABLET PO SCH ×2 (09:24→21:12)
[2019-08-21] MEDS: DOXAZOSIN 4 MG TAB PO SCH ×2 (09:24→21:00)
[2019-08-21] MEDS: CLOPIDOGREL 75 MG TABLET PO SCH (09:24)
[2019-08-21] MEDS: JUVEN PACKET PO SCH ×2 (09:25→21:11)
[2019-08-21] MEDS: ISOSORBIDE MONO SR 30 MG TAB PO SCH (09:25)
[2019-08-21] MEDS: HYDRALAZINE HCL 25 MG TABLET PO SCH ×3 (10:36→21:08)
--- NOTE | 2019-08-21 14:27 | P.DS ---
Admission Date: 08/19/19 Discharge Date: 08/21/19 Primary Care Provider: Dr. Guardado Disposition: DC HOME/HOME HEALTH CARE Discharge Condition: GOOD Reason for Admission: Shortness of breath Consultations: Nephrology-Dr. Guardado Procedures: Renal US: FINDINGS: The right kidney measures 11.2 x 5.2 x 5.9 cm. The left kidney measures 9.4 x 4.6 x 4.3 cm. Cortical thickness and echogenicity are normal. The patient has numerous variably sized cysts throughout both kidneys. If you have some minimal echogenic debris. No hydronephrosis of either kidney. No large calculi seen. No solid mass of either kidney identifiable. Bladder is only partially filled. No wall thickening or mass of the bladder wall seen. There is a moderately large volume of layering echogenic debris. Correlation can be made with UA findings. Old hemorrhagic material can have this appearance as well. IMPRESSION: Polycystic kidney pattern with no hydronephrosis of either kidney. No solid mass of either kidney. Moderately large volume of echogenic debris in the urinary bladder. CXR: FINDINGS: Portable technique limits examination quality. Since 08/19/2019, little overall change is seen in appearance the chest. Mild bilateral pulmonary opacities persist with probable small pleural effusions. The heart is mildly enlarged in size. IMPRESSION: Stable chest since 08/19/2019. CT Head: FINDINGS: There is no acute hemorrhage, mass effect or midline shift. Carreno- white differentiation is preserved. There is no hydrocephalus. There is no significant volume loss for age. There are mild patchy hypodensities within the periventricular and subcortical white matter, consistent with microangiopathic ischemic changes. The calvarium is intact. Orbits and globes are unremarkable. The paranasal sinuses are clear. Mastoid air cells are clear. IMPRESSION: No acute intracranial findings. Medical Problem List: Shortness of breast secondary pulmonary edema complicated with end-stage renal disease on hemodialysis Hypertension Atrial fibrillation not on chronic anti coagulation therapy Anemia of chronic disease Brief History of Present Illness: 88-year-old female with history of end-stage renal disease on hemodialysis. Patient presented with shortness of breath. Patient found to have pulmonary edema. Patient was admitted for further evaluation and treatment. Hospital Course: Patient presented with shortness of breast secondary a pulmonary edema complicated with end-stage renal disease on hemodialysis. Patient received dialysis with improvement. Patient no longer requiring oxygen. Chest x-ray shows improvement. Patient seen by nephrology. No further intervention is required. At discharge patient will continue with a 1500 cc per day fluid restriction and low-salt diet. Recommend to monitor her weight daily. If her weight increases by more than 5 lb she is to contact nephrology for further recommendation. Patient with end-stage renal disease on hemodialysis and hypertension. At discharge patient will continue with her current medications of Doxazosin 8 mg 1 pill twice daily, hydralazine 100 mg 3 times a day, nifedipine XL 90 mg 1 pill twice daily, and ramipril 10 mg daily. Recommend to monitor blood pressure daily. Recommend to maintain blood pressure less 150/80. Further adjustment can be done by nephrology. Patient with CAD and atrial fibrillation not on chronic anti coagulation therapy. This has remained stable. At discharge patient will continue with aspirin 81 mg daily, Plavix 75 mg daily, and isosorbide mononitrate ER 90 mg daily. Recommend follow up with cardiology to further monitor and address. Vital Signs/Physical Exam: Temp Pulse Resp BP Pulse Ox 98.8 F 103 H 16 131/67 93 08/21/19 08:00 08/21/19 09:24 08/21/19 09:20 08/21/19 09:24 08/21/19 09:20 General: Alert, In no apparent distress, Oriented x3, Cooperative HEENT: Atraumatic Neck: Supple Respiratory: Clear to auscultation bilaterally, Normal air movement Cardiovascular: Irregular heart rate/rhythm (AFib rate controlled) Gastrointestinal: Normal bowel sounds, Soft and benign Neurological: Normal affect Laboratory Data at Discharge: WBC 5.1 K/uL (4.3-10.9) D 08/21/19 05:59 Hgb 9.9 g/dL (12.0-15.0) L 08/21/19 05:59 Hct 30.4 % (36.0-45.0) L 08/21/19 05:59 Plt Count 224 K/uL (152-406) 08/21/19 05:59 PT 14.3 SECONDS (9.5-12.5) H 08/19/19 10:14 INR 1.22 08/19/19 10:14 APTT 30.6 SECONDS (24.3-36.9) 08/19/19 04:07 Sodium 139 mmol/L (136-145) 08/21/19 05:59 Potassium 4.2 mmol/L (3.5-5.1) 08/21/19 05:59 BUN 15 mg/dL (7-18) D 08/21/19 05:59 Creatinine 4.52 mg/dL (0.55-1.3) H D 08/21/19 05:59 Glucose 74 mg/dL (74-106) 08/21/19 05:59 Total Bilirubin 0.4 mg/dL (0.2-1.0) 08/19/19 04:07 AST 21 U/L (15-37) 08/19/19 04:07 ALT 14 U/L (12-78) 08/19/19 04:07 Alkaline Phosphatase 82 U/L (45-117) 08/19/19 04:07 Home Medications: Aspirin 81 mg PO DAILY 08/05/19 Cholecalciferol (Vitamin D3) [Vitamin D 5,000 IU Cap*] 1 cap PO BEDTIME 08/05/19 Clopidogrel Bisulfate [Plavix*] 75 mg PO DAILY 08/05/19 Cranberry Conc/Ascorbic Acid [Cranberry Plus Vitamin C Sftgl] 1 cap PO BID 08/05/19 Doxazosin Mesylate 8 mg PO BID 08/05/19 Folic Acid/Vit B Complex and C [Dialyvite 800 Chewable Wafer] 800 mg PO BEDTIME 08/05/19 Isosorbide Mononitrate [Isosorbide Mononitrate ER] 3 tab PO DAILY 08/05/19 Megestrol [Megace*] 40 mg PO BREAKFAST 08/05/19 NIFEdipine [Nifedipine ER] 90 mg PO BID 08/05/19 Ramipril [Altace] 10 mg PO BEDTIME 08/05/19 Sertraline [Zoloft*] 50 mg PO BEDTIME 08/05/19 Hydralazine HCl [Apresoline] 100 mg PO TID #90 tablet 08/07/19 Acetaminophen [Tylenol Extra Strength] 500 mg PO Q6HR 08/19/19 Atorvastatin Calcium [Lipitor] 80 mg PO DAILY 08/19/19 Docusate [Colace Cap*] 100 mg PO DAILY 08/19/19 Mecobalamin [B12 Active] 1,000 mcg PO DAILY 08/19/19 Melatonin 5 mg PO BEDTIME 08/19/19 Tramadol HCl [Ultram] 50 mg PO Q6HR 08/19/19 Patient Discharge Instructions: Patient presented with shortness of breast secondary a pulmonary edema complicated with end-stage renal disease on hemodialysis. Patient received dialysis with improvement. Patient no longer requiring oxygen. Chest x-ray shows improvement. Patient seen by nephrology. No further intervention is required. At discharge patient will continue with a 1500 cc per day fluid restriction and low-salt diet. Recommend to monitor her w eight daily. If her weight increases by more than 5 lb she is to contact nephrology for further recommendation. Patient with end-stage renal disease on hemodialysis and hypertension. At discharge patient will continue with her current medications of Doxazosin 8 mg 1 pill twice daily, hydralazine 100 mg 3 times a day, nifedipine XL 90 mg 1 pill twice daily, and ramipril 10 mg daily. Recommend to monitor blood pressure daily. Recommend to maintain blood pressure less 150/80. Further adjustment can be done by nephrology. Patient with CAD and atrial fibrillation not on chronic anti coagulation therapy. This has remained stable. At discharge patient will continue with aspirin 81 mg daily, Plavix 75 mg daily, and isosorbide mononitrate ER 90 mg daily. Recommend follow up with cardiology to further monitor and address. Diet: Renal Activity: Fall precautions Time spent managing pt's care (in minutes): 55
[2019-08-21] MEDS: ACETAMINOPHEN 500 MG TAB PO PRN (14:44)
[2019-08-21] MEDS: SERTRALINE HCL 50 MG TAB PO SCH (21:09)
[2019-08-21] MEDS: MELATONIN 5 MG TABLET PO SCH (21:10)
[2019-08-21] MEDS: ramipriL 5 MG CAP PO SCH (21:10)
[2019-08-21] MEDS ORDERED: DOXAZOSIN 2 MG TAB ONE (21:15)
[2019-08-21] MEDS ORDERED: HYDRALAZINE HCL 25 MG TABLET PO SCH (21:17)
--- NOTE | 2019-08-21 21:21 | P.PN ---
Date of Service: 08/21/19 Vital Signs Temp Pulse Resp BP Pulse Ox 97.6 F 98 H 18 150/67 H 100 08/21/19 20:00 08/21/19 21:12 08/21/19 20:00 08/21/19 21:12 08/21/19 20:00 Medications Acetaminophen (Tylenol -Extra Strength) 500 mg PO Q4HP PRN PRN Reason: TEMP > 100' F Stop: 09/18/19 09:24 Last Admin: 08/21/19 14:44 Dose: 500 mg Documented by: Albuterol Sulfate (Proventil 0.083% Neb Soln) 2.5 mg NEB [id number] PRN PRN Reason: SHORTNESS OF BREATH Stop: 09/18/19 09:24 Aspirin (Aspirin Chewable) 81 mg PO DAILY [facility] Stop: 09/19/19 09:01 Last Admin: 08/21/19 09:24 Dose: 81 mg Documented by: Atorvastatin Calcium (Lipitor) 80 mg PO DAILY [facility] Stop: 09/19/19 09:01 Last Admin: 08/21/19 09:23 Dose: 80 mg Documented by: Clopidogrel Bisulfate (Plavix) 75 mg PO DAILY [facility] Stop: 09/19/19 09:01 Last Admin: 08/21/19 09:24 Dose: 75 mg Documented by: Docusate Sodium (Colace Cap) 100 mg PO DAILY [facility] Stop: 09/19/19 09:01 Last Admin: 08/21/19 09:23 Dose: 100 mg Documented by: Doxazosin Mesylate (Cardura) 8 mg PO BID [facility] Stop: 09/18/19 21:01 Last Admin: 08/21/19 21:00 Dose: 8 mg Documented by: Heparin Sodium (Porcine) (Heparin 1,000 Units/Ml) 6,000 unit IV EVERY HD PRN PRN Reason: AFTER EACH Stop: 09/19/19 09:27 Heparin Sodium (Porcine) (Heparin 1,000 Units/Ml) 2,000 unit IV EVERY HD [facility] Stop: 08/22/19 14:01 Last Admin: 08/20/19 18:47 Dose: 2,000 unit Documented by: Hydralazine HCl (Apresoline) 100 mg PO TID [facility] Stop: 09/18/19 21:01 Last Admin: 08/21/19 21:08 Dose: 100 mg Documented by: Albumin Human (Albumin 25%) 50 mls @ 100 mls/hr IV EVERY HD [facility] Stop: 09/19/19 10:01 Isosorbide Mononitrate (Imdur) 90 mg PO DAILY [facility] Stop: 09/19/19 09:01 Last Admin: 08/21/19 09:25 Dose: 90 mg Documented by: L-Arginine/L-Glutamine/HMB (Dave) 1 pkt PO BID [facility] Stop: 09/19/19 21:01 Last Admin: 08/21/19 21:11 Dose: 1 pkt Documented by: Mannitol (Mannitol 12.5 Gm/50 Ml Vial) 12.5 gm IV EVERY HD PRN PRN Reason: Titrate to SBP (MUST DEFINE) Stop: 09/19/19 09:27 Megestrol Acetate (Megace) 40 mg PO BREAKFAST [facility] Stop: 09/19/19 08:01 Last Admin: 08/21/19 09:23 Dose: 40 mg Documented by: Melatonin (Melatonin) 5 mg PO BEDTIME [facility] Stop: 09/18/19 21:01 Last Admin: 08/21/19 21:10 Dose: 5 mg Documented by: Nifedipine (Procardia Xl) 90 mg PO BID [facility] Stop: 09/18/19 21:01 Last Admin: 08/21/19 21:12 Dose: 90 mg Documented by: Ondansetron HCl (Zofran) 4 mg IV Q6HP PRN PRN Reason: NAUSEA / VOMITING Stop: 09/18/19 09:24 Ramipril (Altace) 10 mg PO BEDTIME [facility] Stop: 09/18/19 21:01 Last Admin: 08/21/19 21:10 Dose: 10 mg Documented by: Sertraline HCl (Zoloft) 50 mg PO BEDTIME [facility] Stop: 09/18/19 21:01 Last Admin: 08/21/19 21:09 Dose: 50 mg Documented by: Sodium Chloride (Normal Saline Flush) 10 ml IV BID [facility] Stop: 09/18/19 09:24 Last Admin: 08/21/19 21:10 Dose: 10 ml Documented by: Tramadol HCl (Ultram) 50 mg PO Q6HR [facility] Stop: 09/18/19 18:01 Last Admin: 08/21/19 18:00 Dose: Not Given Documented by: Assessment/ Plan: Nephrology Feeling better today. CPS improved without CP or SOB. No acute events overnight. Episode of hypotension today with abdominal pain. General: In no apparent distress, Oriented x3, Cooperative HEENT: Atraumatic Neck: Supple Respiratory: Clear to auscultation bilaterally Cardiovascular: No edema, Regular rate/rhythm Gastrointestinal: Soft and benign, Non-distended Musculoskeletal: No clubbing, No contractures Integumentary: No rashes, No cyanosis Neurological: Normal speech Blood work reviewed in the chart. Imagings Data: [facility] CLINICAL HISTORY: Cough COMPARISON: August 03 FINDINGS: Mild bilateral pulmonary opacities Heart is mildly enlarged. Right hemidiaphragm remains elevated IMPRESSION: Mild CHF Conclusions/Impression: A/ ESRD on HD. HTN with CKD/ CHF. Diastolic CHF, A/C. DM II with CKD. Anemia in CKD. TALIA/ Secondary HyperPTH. P/ Continue current POC and Medications. Next HD tomorrow. Holding parameter for hydralazine. Give Retacrit. Low sodium diet. No NSAIDs. AM labs. Daily weight. Case reviewed with Dr. Zeng.
[2019-08-22] MEDS: TRAMADOL HCL 50 MG TAB PO SCH ×4 (00:16→18:31)
--- NOTE | 2019-08-22 00:27 | PN ---
Date of Progress Note: 08/21/2019 Ms. Graham was being followed by Dr. Hutchinson for atrial fibrillation. She also had hypertension and congestive heart failure. Patient is not a candidate for anticoagulation. She has been on aspirin a nd a beta-genaro. Today, she is in sinus rhythm and has no specific complaint. Her chest is clear. Her legs showed no edema. Echocardiogram is pending, but I am comfortable with her going home and we will see her in the office in the next 2 weeks. The case was discussed with Dr. Zeng. BISI/MELISSA Voice ID: [id number] Report ID: [id number]
[2019-08-22] MEDS ORDERED: DOXAZOSIN 2 MG TAB ONE (07:42)
[2019-08-22] MEDS: ISOSORBIDE MONO SR 30 MG TAB PO SCH (08:47)
[2019-08-22] MEDS: NIFEDIPINE XL 90 MG TABLET PO SCH (08:48)
[2019-08-22] MEDS: DOCUSATE NA 100 MG CAP PO SCH (08:48)
[2019-08-22] MEDS: ASPIRIN 81 MG CHEWABLE TABLET PO SCH (08:48)
[2019-08-22] MEDS: ATORVASTATIN 80 MG TAB PO SCH (08:48)
[2019-08-22] MEDS: CLOPIDOGREL 75 MG TABLET PO SCH (08:48)
[2019-08-22] MEDS: MEGESTROL 400 MG/10 ML UCUP PO SCH (08:49)
[2019-08-22] MEDS: DOXAZOSIN 4 MG TAB PO SCH (08:50)
[2019-08-22] MEDS: JUVEN PACKET PO SCH (08:51)
[2019-08-22 12:34] VITALS: O2SAT 100
[2019-08-22 14:21] VITALS: BP 177/75; TEMP 98.7
--- NOTE | 2019-08-22 16:31 | EKG ---
Test Date: 2019-08-20 Test Time: 15:25:38 Ops Manager: MEASUREMENT RESULTS: Intervals: Rate: 122 AL: 288 QRSD: 80 QT: 324 QTc: 461 [place]: P: 14 AL: 288 QRS: -21 T: -4 INTERPRETIVE STATEMENTS: Sinus tachycardia with 1st degree AV block with premature atrial complexes with aberrant conduction Anteroseptal infarct, age undetermined Abnormal ECG Compared to ECG 08/19/2019 03:48:37 Atrial premature complex(es) now present First degree AV block now present Aberrant conduction of supraventricular beat(s) now present Atrial fibrillation no longer present Ventricular premature complex(es) no longer present Myocardial infarct finding still present Electronically Signed On 08-22-19 16:27:47 CDT by Juan Pablo Leroy
--- NOTE | 2019-08-22 17:22 | PN ---
Subjective: We have been following Ms. Graham because of atrial fibrillation, hypertension, and con gestive heart failure, has been placed on beta blockers and aspirin. She remains in sinus rhythm. S he does not have any chest pain, shortness of breath, PND, orthopnea, pedal edema, palpitation. Objective: Chest: Clear. Cardiac: Reveals regular rhythm and rate with an S4 gallops. No murmurs or rubs. Extremities: She has trace edema. Assessment/plan: Ms. Graham from my standpoint can go home on beta blockers, aspirin; not a john te for anticoagulation. We will see her in the office soon. I will sign off her case. BISI/MELISSA Voice ID: [id number] Report ID: [id number]
--- NOTE | 2019-08-22 21:10 | P.PN ---
Date of Service: 08/22/19 Vital Signs Temp Pulse Resp BP Pulse Ox 98.7 F 85 18 177/75 H 94 08/22/19 12:00 08/22/19 12:00 08/22/19 18:31 08/22/19 12:00 08/22/19 18:31 Assessment/ Plan: Nephrology Feeling better today. +Appetite CPS improved without CP or SOB. No acute events overnight. General: In no apparent distress, Oriented x3, Cooperative HEENT: Atraumatic Neck: Supple Respiratory: Clear to auscultation bilaterally Cardiovascular: No edema, Regular rate/rhythm Gastrointestinal: Soft and benign, Non-distended Musculoskeletal: No clubbing, No contractures Integumentary: No rashes, No cyanosis Neurological: Normal speech Blood work reviewed in the chart. Imagings Data: EXAM DESCRIPTION: [place] Single View08/19/2019 4:02 am CLINICAL HISTORY: Cough COMPARISON: August 03 FINDINGS: Mild bilateral pulmonary opacities Heart is mildly enlarged. Right hemidiaphragm remains elevated IMPRESSION: Mild CHF Conclusions/Impression: A/ ESRD on HD. HTN with CKD/ CHF. Diastolic CHF, A/C. DM II with CKD. Anemia in CKD. TALIA/ Secondary HyperPTH. P/ Continue current POC and Medications. Acute HD today. Give Retacrit PRN. Low sodium diet. No NSAIDs. AM labs. Daily weight.
== END 2019-08-22 20:24 | disposition home health service (06) ==
LOC: ER 02:34 → ERHOLD 07:00 → 2ND 08:38
PROVIDERS: ADMIT Internal Medicine; ATTEND Family Medicine
PROC: 5A1D70Z Performance of Urinary Filtration, Intermittent, Less than 6 Hours Per Day (ICD-10-PCS; 2019-08-20)
PROC: 5A1D70Z Performance of Urinary Filtration, Intermittent, Less than 6 Hours Per Day (ICD-10-PCS; principal; 2019-08-22)
DX: I13.2 Hypertensive heart and chronic kidney disease with heart failure and with stage 5 chronic kidney disease, or end stage renal disease (principal); I50.33 Acute on chronic diastolic (congestive) heart failure; E11.22 Type 2 diabetes mellitus with diabetic chronic kidney disease; N18.6 End stage renal disease; I25.10 Atherosclerotic heart disease of native coronary artery without angina pectoris; F32.9 Major depressive disorder, single episode, unspecified; E78.5 Hyperlipidemia, unspecified; I35.0 Nonrheumatic aortic (valve) stenosis; I70.1 Atherosclerosis of renal artery; D63.1 Anemia in chronic kidney disease; I48.91 Unspecified atrial fibrillation; J81.1 Chronic pulmonary edema; N25.81 Secondary hyperparathyroidism of renal origin; Z99.2 Dependence on renal dialysis
CPT/HCPCS: 93005 ×2; 85025 ×3; 80048 ×3; 36415 ×3; 85610 ×2; 82947 ×14; 80076; 85730; 84443; 84484; 83880; 70450; 71045 ×2; 90935 ×3; 76770; 94760 ×7; 96374; 99284; J1940; J1644 ×2; Q5106; G0378 ×5

== ENCOUNTER 2019-09-12 14:41 | Observation (INO) | payer OTHER ==
[2019-09-12 16:17] LABS: Absolute Lymphocytes (CBC) 0.7 K/uL (0.7-4.9); Basophils % 0.7 % (0-1.3); Hematocrit 38.1 % (36.0-45.0); Lymphocytes % 16.5 % (15.3-44.8); MPV 9.1 fL (7.6-11.3); RBC Red Blood Cell Count 4.06 M/uL (3.86-4.86)
[2019-09-12 16:31] LABS: Albumin 2.7 g/dL (3.4-5.0); Bilirubin Direct 0.2 mg/dL (0-0.2); Bilirubin Total 0.5 mg/dL (0.2-1.0); Protein, Total 6.6 g/dL (6.4-8.2)
[2019-09-12 16:41] LABS: Potassium 3.6 mmol/L (3.5-5.1)
--- NOTE | 2019-09-12 16:44 | RAD REPORT ---
EXAM DESCRIPTION: RAD - Chest Single View - 09/12/2019 4:29 pm CLINICAL HISTORY: ESRD, shortness of breath COMPARISON: Portable August 20, 2019 portable August 19, 2019 TECHNIQUE: AP portable chest image was obtained 09/12/2019 4:29 pm . FINDINGS: No new mass or consolidation. Interstitial opacification is evident but less pronounced th an seen previously. Heart size remains prominent peer mild vascular engorgement seen. No measurable p leural effusion and no pneumothorax. No acute bony abnormality seen. No acute aortic findings suspect ed. IMPRESSION: Heart, vasculature and lung markings are all mildly prominent. Findings suggest a mild failure/ volume overload. This is less pronounced than seen on August 19 imaging .
--- OUTSIDE RECORDS SUMMARY | 2019-09-12 16:52 | XMS REPORT | Clinical Summary ---
:1930 Author Organization [facility] Address [address] [place] [address] Care Team Providers Name Role Phone Leonid [...] INFLUENZA VACCINE 10/20/2019 Results Not on fileafter 09/11/2018 Insurance Payer Benefit Plan / Subscriber ID Effective Dates Phone Addre ss Type Group MEDICARE MEDICARE PART A xxxxxxxxxx 1995-Present [facility] [place] Medicare AND B AETNA AETNA PPO OPEN xxxxxxxxxx 1995-Present PPO CHOICE Advance Directives For more information, please contact: [phone] Type Date Recorded Patient Patient Financial Advocate Explanati on Advance Directives, Living Will and Medical Power of Head Of Visual Merchandising
--- OUTSIDE RECORDS SUMMARY | 2019-09-12 16:52 | XMS REPORT | Clinical Summary ---
:1930 Author Organization [facility] Address [address] [place] [address] Care Team Providers Name Role Phone Unavailable [...] Care Team Description 02/17/2019 Travel 02/16/2019 - [facility] General Internal [facility], Acute encep halopathy (Primary Dx); 02/19/2019 Encounter Medicine Debby Johns MD Acute ischemic stroke ([facility]); Lisa Choi, Anemia of ch ronic disease; ESRD on hemodialysis ([facility]); Fabiola Pratt Essential hype rtension MD Poppy after 09/11/2018 Social History Tobacco Use Types Packs/Day Years [...] Taken Blood Pressure 145/67 02/19/2019 11:41 AM LAW RESEARCHER Pulse 79 02/19/2019 11:41 AM LAW RESEARCHER Temperature 36.9 C (98.5 F) 02/19/2019 11:41 AM LAW RESEARCHER Respiratory Rate 20 02/19/2019 11:41 AM LAW RESEARCHER Oxygen Saturation 92% 02/19/2019 11:41 AM LAW RESEARCHER Inhaled Oxygen Concentration - - Weight 66.8 kg (147 lb 4.3 oz) 02/19/2019 10:57 AM LAW RESEARCHER Height 165.1 cm (5' 5") 02/16/2019 4:00 PM LAW RESEARCHER Body Mass Index 24.51 02/19/2019 10:57 AM LAW RESEARCHER Plan of Treatment Not on file Procedures Procedure Name Priority Date/Time Associated Comments Diagnosis RHYTHM STRIP - SCAN 02/22/2019 8:50 AM LAW RESEARCHER POCT-GLUCOSE METER Routine 02/19/2019 11:58 Resul ts for this AM LAW RESEARCHER procedure are i n the results section. HEMODIALYSIS INPATIENT Routine 02/19/2019 7:05 AM LAW RESEARCHER CBC W/PLT COUNT & AUTO Routine 02/19/2019 4:24 R esults for this DIFFERENTIAL AM LAW RESEARCHER procedure are i n the results section. CBC W/PLT COUNT & AUTO Routine 02/19/2019 4:24 R esults for this DIFFERENTIAL AM LAW RESEARCHER procedure are i n the results section. POCT-GLUCOSE METER Routine 02/18/2019 8:49 Resul ts for this PM LAW RESEARCHER procedure are i n the results section. POCT-GLUCOSE METER Routine 02/18/2019 5:11 Resul ts for this PM LAW RESEARCHER procedure are i n the results section. POCT-GLUCOSE METER Routine 02/18/2019 9:01 Resul ts for this AM LAW RESEARCHER procedure are i n the results section. CBC W/PLT COUNT & AUTO Routine 02/18/2019 4:57 R esults for this DIFFERENTIAL AM LAW RESEARCHER procedure are i n the results section. CBC W/PLT COUNT & AUTO Routine 02/18/2019 4:57 R esults for this DIFFERENTIAL AM LAW RESEARCHER procedure are i n the results section. COMPREHENSIVE Routine 02/18/2019 4:57 Results fo r this METABOLIC PANEL AM LAW RESEARCHER procedure ar e in the results section. POCT-GLUCOSE METER Routine 02/17/2019 10:41 Resul ts for this PM LAW RESEARCHER procedure are i n the results section. ECHOCARDIOGRAM REPORT 02/17/2019 9:21 - SCAN PM LAW RESEARCHER POCT-GLUCOSE METER Routine 02/17/2019 5:58 Resul ts for this PM LAW RESEARCHER procedure are i n the results section. MR BRAIN WITHOUT IV Routine 02/17/2019 3:41 Resu lts for this CONTRAST PM LAW RESEARCHER procedure are i n the results section. WOUND CULTURE + GRAM Routine 02/17/2019 1:10 Res ults for this STAIN PM LAW RESEARCHER procedure are i n the results section. POCT-GLUCOSE METER Routine 02/17/2019 11:51 Resul ts for this AM LAW RESEARCHER procedure are i n the results section. DRUG SCREEN, URINE, Routine 02/17/2019 11:30 COMPREHENSIVE AM LAW RESEARCHER URINALYSIS W/ REFLEX Routine 02/17/2019 11:30 Res ults for this URINE CULTURE AM LAW RESEARCHER procedure are in the results section. URINE CULTURE Routine 02/17/2019 11:30 Results fo r this AM LAW RESEARCHER procedure are i n the results section. HEMOGLOBIN A1C Routine 02/17/2019 7:34 Results f or this AM LAW RESEARCHER procedure are i n the results section. VITAMIN B12 AND FOLATE Routine 02/17/2019 7:34 R esults for this AM LAW RESEARCHER procedure are i n the results section. CBC W/PLT COUNT & AUTO Routine 02/17/2019 4:52 R esults for this DIFFERENTIAL AM LAW RESEARCHER procedure are i n the results section. CBC W/PLT COUNT & AUTO Routine 02/17/2019 4:52 R esults for this DIFFERENTIAL AM LAW RESEARCHER procedure are i n the results section. COMPREHENSIVE Routine 02/17/2019 4:52 Results fo r this METABOLIC PANEL AM LAW RESEARCHER procedure ar e in the results section. LIPID PANEL Routine 02/17/2019 4:52 Results for this AM LAW RESEARCHER procedure are i n the results section. POCT-GLUCOSE METER Routine 02/17/2019 12:10 Resul ts for this AM LAW RESEARCHER procedure are i n the results section. HEMODIALYSIS INPATIENT Routine 02/16/2019 9:41 PM LAW RESEARCHER 2D ECHO W/ DOPPLER Routine 02/16/2019 7:06 Resul ts for this (CW/PW/COLOR) PM LAW RESEARCHER procedure are in the results section. CBC W/PLT COUNT & AUTO Routine 02/16/2019 6:41 R esults for this DIFFERENTIAL PM LAW RESEARCHER procedure are i n the results section. HEPATITIS C ANTIBODY Add-On 02/16/2019 6:41 Res ults for this PM LAW RESEARCHER procedure are i n the results section. HEPATITIS B SURFACE MARILEE 02/16/2019 6:41 Resu lts for this ANTIGEN PM LAW RESEARCHER procedure are i n the results section. CBC W/PLT COUNT & AUTO Routine 02/16/2019 6:41 R esults for this DIFFERENTIAL PM LAW RESEARCHER procedure are i n the results section. VITAMIN B12 Routine 02/16/2019 6:41 Results for this PM LAW RESEARCHER procedure are i n the results section. RPR Routine 02/16/2019 6:41 Results for this PM LAW RESEARCHER procedure are i n the results section. TSH Routine 02/16/2019 6:41 Results for this PM LAW RESEARCHER procedure are i n the results section. HEMOGLOBIN A1C AP Routine 02/16/2019 6:41 Results f or this PM LAW RESEARCHER procedure are i n the results section. TROPONIN I Routine 02/16/2019 6:41 Results for this PM LAW RESEARCHER procedure are i n the results section. PROTHROMBIN TIME/INR Routine 02/16/2019 6:41 Res ults for this PM LAW RESEARCHER procedure are i n the results section. COMPREHENSIVE Routine 02/16/2019 6:41 Results fo r this METABOLIC PANEL PM LAW RESEARCHER procedure ar e in the results section. XR CHEST 1 VIEW MARILEE 02/16/2019 5:21 Results for this PORTABLE/BEDSIDE PM LAW RESEARCHER procedure a re in the results section. after 09/11/2018 Results RHYTHM STRIP - SCAN (02/22/2019 8:50 AM LAW RESEARCHER) Narrative Performed At This result has an attachment that is no t available. POC-Glucose meter (02/19/2019 11:58 AM LAW RESEARCHER)Only the most recent of8 results within the time period is included. POC-Glucose Meter 77Comment: : TESTED AT 70 - 110 mg/dL [facility] [address] [facility], [id number]: Copy Preparer/Credit Risk Modeler ID = [id number] for Agustina Charlottejosephshyla Specimen Blood Performing Organization Address City/State/Zipcode Phone Number [address] [phone] CENTER CBC with platelet count + automated diff (02/19/2019 4:24 AM LAW RESEARCHER)Only the most recent of4 resultswithin the time period is included. WBC 7.5 3.5 - 10.5 K/L [facility] RBC 2.47 (L) 3.93 - 5.22 M/L [facility] Hemoglobin 7.5 (L) 11.2 - 15.7 GM/DL [facility] Hematocrit 24.6 (L) 34.1 - 44.9 % [facility] MCV 99.6 (H) 79.4 - 94.8 fL [facility] MCH 30.4 25.6 - 32.2 pg [facility] MCHC 30.5 (L) 32.2 - 35.5 GM/DL [facility] RDW 15.3 (H) 11.7 - 14.4 % [facility] Platelets 183 150 - 450 K/CU MM [facility] MPV 9.6 9.4 - 12.3 fL [facility] nRBC 0 0 - 0 /100 WBC [facility] % Neutros 76 % [facility] % Lymphs 15 % [facility] % Monos 5 % [facility] % Eos 4 % [facility] % Baso 0 % [facility] # Neutros 5.70 1.56 - 6.13 K/L [facility] # Lymphs 1.11 (L) 1.18 - 3.74 K/L [facility] # Monos 0.39 (H) 0.24 - 0.36 K/L [facility] # Eos 0.28 0.04 - 0.36 K/L [facility] # Baso 0.02 0.01 - 0.08 K/L [facility] Immature Granulocytes-Relative 0 0 - 1 % C HI [facility] Specimen Blood Performing Organization Address City/State/Zipcode Phone Number [facility] [address] [place] [address] CENTER Comprehensive metabolic panel (02/18/2019 4:57 AM LAW RESEARCHER)Only the most recent of3 resultswithin the time period is included. Protein, Total 6.2 6.0 - 8.3 gm/dL [facility] Albumin 3.1 (L) 3.5 - 5.0 g/dL [facility] Alkaline Phosphatase 89 40 - 150 U/L [facility] Total Bilirubin 0.5 0.2 - 1.2 mg/dL [facility] Sodium 137 136 - 145 meq/L [facility] Potassium 4.4 3.5 - 5.1 meq/L [facility] Chloride 101 98 - 107 meq/L [facility] CO2 28 22 - 29 meq/L [facility] BUN 19 7 - 21 mg/dL [facility] Creatinine 4.63 (H) 0.57 - 1.25 mg/dL [facility] Glucose 75 70 - 105 mg/dL [facility] Calcium 8.6 8.4 - 10.2 mg/dL [facility] ER AST 34 5 - 34 U/L [facility] ALT 21 6 - 55 U/L [facility] ER EGFR 11Comment: ESTIMATED GFR mL/min/1.[address] [facility] IS NOT ACCURATE [facility] CREATININE CLEARANCE IN PREDICTING GLOMERULAR FILTRATION RATE. ESTIMATED GFR IS NOT APPLICABLE FOR DIALYSIS PATIENTS. Specimen Blood Performing Organization Address City/State/Zipcode Phone Number [facility] [address] [place] [address] CENTER ECHOCARDIOGRAM REPORT - SCAN (02/17/2019 9:21 PM LAW RESEARCHER) Narrative Performed At This result has an attachment that is no t available. MR brain without IV contrast (02/17/2019 3:41 PM LAW RESEARCHER) Specimen Narrative Performed At FINAL REPORT [place] MR, BRAIN, WITHOUT CONTRAST INDICATION: Stroke, follow [...] External Ris In - 02/17/2019 4:08 PM LAW RESEARCHER FINAL REPORT MR, BRAIN, WITHOUT CONTRAST INDICATION: [...] 6:05:48 Performing Organization Address City/State/Zipcode Phone Number [facility] Wound culture + gram stain (02/17/2019 1:10 PM LAW RESEARCHER) Result No growth [facility] Gram Stain Result <1+ WBCs [facility] Gram Stain Result No organisms seen [facility] Specimen Abscess Performing Organization Address City/State/Zipcode Phone Number [facility] [address] [place] [address] [place] Urinalysis w/Microscopic + Reflex to Culture (02/17/2019 11:30 AM LAW RESEARCHER) Color, UA Yellow [facility] Clarity, UA Hazy [facility] Specific [place], UA 1.011 1.001 - 1.[address] [facility] pH, UA 8.5 (H) 5.0 - 8.0 [facility] Protein, UA 300 mg/dL (A) Negative [facility] Glucose, UA Negative Negative [facility] Ketones, UA Negative Negative [facility] Bilirubin, UA Negative Negative [facility] Blood, UA Trace (A) Negative [facility] Nitrite, UA Positive (A) Negative [facility] Leukocytes, UA Large (A) Negative [facility] Urobilinogen, UA 0.2 0.2 - 1.0 mg/dL [facility] RBC, UA 9 /HPF [facility] WBC, UA 24 /HPF [facility] Bacteria, UA Moderate [facility] Mucus Many [facility] Squam Epithel, UA 50 /HPF [facility] Specimen Source [facility] Specimen Urine Performing Organization Address City/State/Zipcode Phone Number [facility] [address] [place] [address] [place] Drug screen, urine, comprehensive (02/17/2019 11:30 AM LAW RESEARCHER) Specimen Urine Narrative Performed At This result has an attachment that is no t available. Urine culture (02/17/2019 11:30 AM LAW RESEARCHER) Result 40-49,000 col/mL skin rena [facility] Specimen Urine Performing Organization Address [facility] Phone Number [address] [address] [place] Vitamin B12 and Folate (02/17/2019 7:34 AM LAW RESEARCHER) Vitamin B12 >2000 (H) 213 - 816 pg/mL [facility] Folate 16.5 >=7.0 ng/mL [facility] Specimen Blood Performing Organization Address [facility] Phone Number [address] [address] [place] Hemoglobin A1c (02/17/2019 7:34 AM LAW RESEARCHER)Only the most recent of2 resultswithin the time period is included. Hemoglobin A1C 4.3 4.3 - 6.1 % [facility] Specimen Blood Performing Organization Address [facility] Phone Number [address] [address] [place] Fasting lipid panel (02/17/2019 4:52 AM LAW RESEARCHER) Triglycerides 61 mg/dL [facility] Cholesterol 104 mg/dL [facility] HDL 56 mg/dL [facility] LDL Calculated 36 mg/dL [facility] Specimen Blood Narrative Performed At Triglyceride Reference Range: [facility] Low Risk <150 [id number] High Risk 200-499 Very High Risk>=500 Cholesterol Reference Range: Low Risk <200 [id number] High Risk>240 HDL Cholesterol Reference Range: Low Risk >=60 High Risk <40 LDL Cholesterol Reference Range: Optimal<100 Near [id number] Bsmqyfidpd031-404 [id number] Very High >=190 Fasting Performing Organization Address [facility] Phone Number [facility] [address] CENTER 2D Echo W/Doppler(CW/PW/Color) (02/16/2019 7:06 PM LAW RESEARCHER) Ejection Fraction [facility] ECHO HEAR TLAB [facility] Specimen Narrative Performed At Transthoracic Echocardiography Report (T TE) [facility] ECHO HEARTLAB [facility] Demographics Patient Name RUBI,Date of Study 02/16/2019 ERENDIRA [id number] GenderFema Visit Number [id number] Blake [id number] Room Number [id number] Number Date of Birth1Referring Physician Debby Velez Age88 year(s)Lean Manager Trevor Lambert InterpretingBrianna Dotson MD Procedure Type [...] Mild aortic stenosis. CT 1.91 cm2. 5. Guuj-rg-wyhirena tricuspid regurgita tion. 6. Estimated peak systolic [...] calcification. Mi ld MV leaflet thickening. Tricuspid WkqrxAiho-sg-yrmmwcmq tricuspid regurgitation. Es timated peak systolic PA [...] External Ris In - 02/17/2019 3:09 PM LAW RESEARCHER Transthoracic Echocardiography Report (TTE) Demographics Patient Name RUBI, Date of Study 02/16/2019 ERENDIRA Gender Female Visit Number [id number] Race Black Room Num [place] [id number] Number Date of 1930 Lucina watkins Physician Debby Velez Age 88 year(s) Sonograp her Trevor Zuñiga Chain Mender Brianna Mccauley MD Procedure Type of Study [...] Mild aortic stenosis. CT 1.91 cm2. 5. Trof-kh-humoaipu tricuspid regurgita tion. 6. Estimated peak systolic [...] calcification. Mild MV leaflet thickening. Tricuspid Valve Titv-lz-dmvataxy tricuspid regurgitation. Estimated peak s ystolic PA [...] CPACS Hepatitis C antibody (02/16/2019 6:41 PM LAW RESEARCHER) Hepatitis C Ab Nonreactive Nonreactive [facility] Specimen Blood Performing Organization Address City/State/Zipcode Phone Number [address] [address] CENTER Troponin I (02/16/2019 6:41 PM LAW RESEARCHER) Troponin I 0.04 (H) 0.00 - 0.03 ng/mL [facility] Specimen Blood Narrative Performed At Troponin I (TnI) levels must be interpreted [facility] in the context of the presenting symptoms [...] tachyarrhythmia. Performing Organization Address City/State/Zipcode Phone Number [address] [address] [place] RPR (02/16/2019 6:41 PM LAW RESEARCHER) RPR Nonreactive Nonreactive [facility] Specimen Blood Performing Organization Address City/[facility]/Zipcode Phone Number [address] [address] [place] Hepatitis B surface antigen (02/16/2019 6:41 PM LAW RESEARCHER) HBsAg Screen Nonreactive Nonreactive [facility] Specimen Blood Performing Organization Address City/[facility]/Zipcode Phone Number [address] [address] [place] Prothrombin time/INR (02/16/2019 6:41 PM LAW RESEARCHER) Protime 16.0 (H) 11.9 - 14.2 seconds [facility] INR 1.4 <=5.9 [facility] Specimen Blood Narrative Performed At Effective 08/16/2018: PT Reference Range [facility] Change New: 11.9-14.2Previous: 11.7-14.7 RECOMMENDED COUMADIN/WARFARIN INR THERAPY RANGES STANDARD DOSE: 2.0-3.0Includes: PROPHYLAXIS for venous thrombosis, systemic embolization; TREATMENT for venous thrombosis and/or pulmonary embolus. HIGH RISK: Target INR is 2.5-3.5 for patients wiht mechanical heart valves. Performing Organization Address City/State/Zipcode Phone Number [facility] [address] [place] [phone] CENTER TSH (02/16/2019 6:41 PM LAW RESEARCHER) TSH 1.78 0.35 - 4.94 uIU/mL [facility] Specimen Blood Performing Organization Address City/[facility]/Zipcode Phone Number [address] [address] [place] Vitamin B12 (02/16/2019 6:41 PM LAW RESEARCHER) Vitamin B12 >2000 (H) 213 - 816 pg/mL [facility] Specimen Blood Performing Organization Address City/[facility]/Zipcode Phone Number [address] [phone] CENTER XR chest 1 view portable / bedside (02/16/2019 5:21 PM LAW RESEARCHER) Specimen Narrative Performed At FINAL REPORT [facility] TECHNIQUE: Frontal view of the chest. INDICATION: [...] MD Report Verified Date/Time:02/16/2019 18:34:17 Reading Location: [facility] [id number] Room Procedure Note Interface, External Ris In - 02/16/2019 6:36 PM LAW RESEARCHER FINAL REPORT TECHNIQUE: Frontal view of the [...] Verified Date/Time: 02/16/2019 1 8:34:17 Reading Location: [id number] Consult R [facility] Room Performing Organization Address City/State/Zipcode Phone Number GE RIS after 09/11/2018 Insurance Payer Benefit Plan / Group Subscriber ID Type Phone A ddress [employer] - MEDICARE MGD [employer] MEDICARE ADV xxxxxxxxx Maps Contracted CARE Advance Directives For more information, please contact:[place] [id number] [place], [place] [phone] Code Status Date Activated Date Inactivated Comments Full Code 02/16/2019 4:33 PM 02/19/2019 6:41 PM This code status was determined by: Patient
--- OUTSIDE RECORDS SUMMARY | 2019-09-12 16:55 | XMS REPORT | Continuity of Care Document ---
:1930 Author Organization [employer] Information MXP4 Care Team Providers Name Role Phone [employer] Information [facility] Unavailable Un available Problems Problem Status Onset Classification Date Comments Sourc e Date Reported Dialysis AV fistula Active 11/28/2018 [facility] malfunction, initial 019 Health encounter Anemia, unspecified 06/15/2018 018 [place] CHF, SYMPTOMATIC Active Mem orial ANEMIA 018 [place] CHF EXACERBATION Active Mem orial 018 [place]am ACUTE CONGESTIVE HEART Active [facility] FAILURE, ESRD 018 Rony n Hip pain (finding) Active Problem 06/15/2018 Data 013 migrated [place] from [employer] on 08/17/14. Iron deficiency anemia Active Problem 06/15/2018 Data MH (disorder) 013 migrated [place] from [employer] on 08/17/14. Loss of appetite Active Problem 06/15/2018 Data MH (finding) 013 migrated [place] from [employer] on 08/17/14. Gastroesophageal Active Problem 06/15/2018 Data reflux disease 013 migrated [place] and (disorder) from [employer] on 08/17/14. Lung mass (finding) Active Problem 06/15/2018 Data 013 migrated [place] from [employer] on 08/17/14. Thyroid nodule Active Problem 06/15/2018 Data MH (disorder) 013 migrated [place] from [employer] on 08/17/14. Osteoarthritis of knee Active Problem 06/15/2018 Data MH (disorder) 012 migrated [place] from [employer] on 08/17/14. Long-term drug therapy Active Problem 06/15/2018 Data MH (procedure) 012 migrated [place] from [employer] on 08/17/14. Malaise and fatigue Active Problem 06/15/2018 Data MH (finding) 012 migrated [place] from [employer] on 08/17/14. Abnormal cytology Active 2 Problem 06/15/2018 Data M H findings (finding) 012 migrated [place] from [employer] on 08/17/14. 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 Pure 06/15/2018 hypercholesterolemia, [place] unspecified Heart failure, 06/15/2018 unspecified [place] Unilateral primary 06/15/2018 osteoarthritis, [facility] unspecified knee Anemia in other 06/15/2018 chronic diseases [place] classified elsewhere Thrombocytopenia, 06/15/2018 M H unspecified [place] Hypertensive urgency 06/15/2018 MH [place] Gastro-esophageal 06/15/2018 M H reflux disease without [place] esophagitis Nicotine dependence, 06/15/2018 cigarettes, [place] uncomplicated 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 Constipation Active Problem 06/15/2018 Data MH (disorder) migrated [place] from [employer] on 08/17/14. Diabetes mellitus Active Problem 06/15/2018 Data M H (disorder) migrated [place] from [employer] on 08/17/14. Hypercholesterolemia Active Problem 06/15/2018 Data MH (disorder) migrated [place] from [employer] on 08/17/14. Impaired glucose Active Problem 06/15/2018 Data MH tolerance (disorder) migrated [place] from [employer] on 08/17/14. Acute respiratory 08/05/2017 M H failure with hypoxia [place] Acute on chronic 08/05/2017 diastolic (congestive) [place] heart failure Patient's 08/05/2017 noncompliance with [place] other medical treatment and regimen Anemia in chronic 08/05/2017 M H kidney disease [place] and Other malaise 08/05/2017 [place] Personal history of 08/05/2017 nicotine dependence [place] HEART FAILURE, Active Memor ial UNSPECIFIED [place]am ACUTE DIASTOLIC Active Migel rial (CONGESTIVE) HEART H ermann FAILU Medications Medication Details Route Status Patient Ordering Order Source Instructions Provider Date traMADol 50 mg Take 1 tablet Oral Active UTM B tablet by mouth [facility] every 6 (six) hours as needed for Pain (scale 7-10). Hydralazine Notes: (Same Inactive Hydrochloride as: 018 [place] 100 MG Oral Apresoline) Tablet May interfere w/enteral feedings Take With Food Hydralazine 100 mg = 1 Active Hydrochloride tab, PO, Q8H, 018 [place] 100 MG Oral # 90 tab, 2 Tablet Refill(s), Pharmacy: [facility]/pharmacy #[id number] Doxazosin Notes: (Same No Longer as: Cardura) Active 018 [place] Clonidine Notes: (Same No Longer Hydrochloride As: Catapres) Active 018 [place] 0.3 MG Oral Tablet isosorbide Notes: (Same No Longer mononitrate as:Imdur) "Do Active 018 [place] extended Not Crush" release Take on empty stomach/ full glass of water. Do not crush Plavix Notes: (Same No Longer As: Plavix) Active 018 [place] Aspirin Notes: Do not No Longer MH crush or Active 018 [place] chew. (Same As: Ecotrin) Epogen Notes: (Same Inactive as: Procrit) 018 [place] epoetin ana rosa 3000 unit/1 ml VL. For dialysis use only WASTE: F/P - Red; E -Red MEDICATION WASTE Product Size: 3000 unit Product Wasted: ___ unit epoetin ana rosa Notes: (Same No Longer as: Procrit) Active 018 [place] epoetin ana rosa 12138 unit/1 ml VL. For dialysis use only. (Procrit) WASTE: F/P - Red; E -Red MEDICATION WASTE Product Size: 62082 unit Product Wasted: ___ unit Clonidine 0.3 mg, PO, Active BID, [address] [place] [address] Refill(s) Acetaminophen 1 tab, PO, Active 300 MG / Q6H, PRN 018 [place] Codeine Pain, # 28 Phosphate 30 MG tab, 0 Oral Tablet Refill(s) [Tylenol with Codeine #3] ramipril 10 mg See Active oral capsule Instructions, 018 [place]nie and 1 cap PO Daily 30 day, 0 Refill(s) Clonidine Notes: (Same Inactive As: Catapres) [address] [place] [address] Hydralazine Notes: (Same No Longer Hydrochloride as: Active [address] [place] [address] 100 MG Oral Apresoline) Tablet May interfere w/enteral feedings Take With Food NIFEdipine 90 Notes: (Same No Longer mg oral tablet, as: Adalat Active 018 [place] and extended CC, Procardia release XL) Give on empty stomach. Take 1 hour before or 2 hours after meal; "Avoid grapefruit and grapefruit juice". Do not crush Hydralazine 5 mg, Route: Inactive IVP, ONCE, [address] [place] [address] Dosing Weight 65.909, kg, Start date: 11/25/17 19:59:00 CDT, Stop date: 11/25/17 19:59:00 CDT Lipitor 80 mg, PO, Active Daily, at [address] [place] [address] bedtime, 0 Refill(s) Sodium Chloride 1,000 mL, [...] Notes: (Same No Longer as: Active 018 [place] Apresoline) Push over 5 minutes Acetaminophen Notes: Do not No Longer exceed 4 Active 018 [place] gm/day. (Same as: Tylenol) Acetaminophen Notes: (Same No Longer 325 MG / as: [place] Active 018 [place] Hydrocodone 325/5) Do Bitartrate 5 MG not exceed Oral Tablet 4gm/day of acetaminophen . remove patch 1 patch, No Longer Route: TOP, Active 018 [place] Drug form: ERFILM, Q7D, Start date: 05/06/17 4:59:00 CITY MANAGER, Duration: 30 day, Stop date: 06/03/17 9:00:00 CDT Clonidine 0.2 mg = 2 Active Hydrochloride tab, PO, BID, 018 [place] 0.1 MG Oral # 30 tab, 0 Tablet Refill(s), Pharmacy: [facility]/pharmacy #[id number] losartan 50 mg 100 mg = 2 Active oral tablet tab, PO, 018 [place] Q12H, # 30 tab, 0 Refill(s), Pharmacy: [facility]/pharmacy #[id number] Hydralazine 200 mg = 2 Active Hydrochloride tab, PO, TID, 018 [place] 100 MG Oral 0 Refill(s) Tablet Clonidine Notes: (Same Inactive Hydrochloride As: Catapres) 018 [place] 0.1 MG Oral Tablet normal saline 1,000 mL, Inactive MH 0.9% IV 1,000 Rate: 75 018 [place] mL ml/hr, Infuse over: 13.3 hr, Route: IV, Dosing Weight 68.5 kg, Total Volume: 1,000, Start date: 04/29/17 10:55:00 CITY MANAGER, Duration: 30 day, Stop date: 05/29/17 10:54:00 CDT, 1.79, m2 Hydralazine 50 mg, 1 tab, Inactive Hydrochloride Route: PO, 018 [place] d 50 MG Oral Drug form: Tablet TAB, TID, Dosing Weight 68.5, kg, Start date: 04/29/17 9:00:00 CITY MANAGER, Duration: 30 day, Stop date: 05/28/17 17:00:00 CITY MANAGER 168 HR Notes: Patch Inactive Clonidine delivers 0.1 018 [place] 0.04266 MG/HR mg/24 hours; Transdermal Patch is Patch applied weekly. "Remove old patch before application of new patch" (Same As: Catapres-TTS- 1) Kayexalate Notes: Inactive (sodium 018 [place] polystyrene sulfonate 15 gm/60 ml TRINITY) Shake well before use. (Same as: Kayexalate, SPS) sodium chloride 2,000 mL, 0 No Longer 0.9% (Priming ml/hr, Infuse Active 018 [place] and Over: 0 hr, Maintenance) Route: IV, 2,000, Drug form: INJ, PRN, Dosing Weight 68.5 kg, Start date: 04/28/17 11:40:00 CITY MANAGER, Duration: 24 hr, Stop date: 04/29/17 11:39:00 CITY MANAGER, For Use by Dialysis nurse ONLY, PRN Dialysis Hydralazine Notes: (Same No Longer as: Active 018 [place] Apresoline) Push over 5 minutes Clonidine Notes: (Same No Longer As: Catapres) Active 018 [place] Losartan Notes: (Same No Longer as: Cozaar) Active 018 [place] NIFEdipine 90 Notes: (Same No Longer mg oral tablet, as: Adalat Active 018 [place]nie and extended CC,Procardia release XL) "Do Not Crush" "Avoid grapefruit and grapefruit juice" Melatonin Notes: (Same No Longer as: Active 018 [place] Melatonin) Melatonin 2.5 2.5 mg, 1 Inactive mg oral capsule cap, Route: 018 [place] PO, Dosing Weight 68.5, kg, Bedtime, PRN as needed for insomnia, Start date: 04/25/17 17:50:00 CITY MANAGER, Duration: 30 day, Stop date: 05/25/17 17:49:00 CITY MANAGER heparin 10,000 unit, No Longer MH 10 mL, Route: Active 018 [place] DIALYSIS, Drug form: INJ, ONCALL, Dosing Weight 68.5, kg, PRN Dialysis, Start date: 04/25/17 7:45:00 CITY MANAGER, Duration: 1 doses or times, Stop date: Limited # of times albumin human Notes: Lot #: No Longer MH 25% intravenous Active 018 [place] solution Mfg: (Same as: Plasbumin-25) "blood product derivative" WASTE: F/P - Red; E -Red MEDICATION WASTE Product Size: 25 gm Product Wasted: ___ gm normal saline 1,000 mL, No Longer MH 0.9% IV 1,000 Rate: 1 Active 018 [place] mL ml/hr, Infuse over: 1000 hr, Route: DIALYSIS, Dosing Weight 68.5 kg, Total Volume: 1,000, Priority: NOW, Start date: 04/25/17 7:43:00 CITY MANAGER, Duration: 30 day, Stop date: 05/25/17 7:42:00 CITY MANAGER, 1.79, m2 normal saline 1,000 mL, No Longer MH 0.9% IV 1,000 Rate: 1 Active 018 [place] mL ml/hr, Infuse over: 1000 hr, Route: DIALYSIS, Dosing Weight 68.5 kg, Total Volume: 1,000, Priority: NOW, Start date: 04/25/17 7:42:00 CITY MANAGER, Duration: 30 day, Stop date: 05/25/17 7:41:00 CITY MANAGER, 1.79, m2 Isosorbide Notes: (Same No Longer Dinitrate as:Isordil) Active 018 [place] Take on empty stomach/ full glass of water Epogen Notes: (Same No Longer as: Procrit) Active 018 [place] epoetin ana rosa 19057 unit/1 ml VL. For dialysis use only. (Procrit) WASTE: F/P - Red; E -Red MEDICATION WASTE Product Size: 53158 unit Product Wasted: ___ unit Sertraline Notes: (Same No Longer MH as: Zoloft) Active 018 [place] Doxazosin Notes: (Same No Longer MH as: Cardura) Active 018 [place] Docusate Sodium Notes: (Same No Longer M H 100 MG Oral as: Colace) Active 018 [place] Capsule (Do Not Crush) Vitamin D3 1000 Notes: Same No Longer MH intl units oral as : Vitamin Active 018 [place] tablet D3 Tums Notes: (Same No Longer MH As: Tums) Active 018 [place] Calcium Carbonate 500 mg = 200 mg elemental calcium Dose = mg calcium carbonate ( mg elemental calcium) Hydralazine Notes: (Same No Longer Hydrochloride as: Active Job [place] 100 MG Oral Apresoline) Tablet May interfere w/enteral feedings Take With Food heparin Notes: No Longer MH porcine Active 018 [place] heparin Plavix Notes: (Same No Longer MH As: Plavix) Active 018 [place] Aspirin Notes: Do not No Longer MH crush or Active 018 [place] chew. (Same As: Ecotrin) Hydralazine Notes: (Same Inactive MH as: 018 [place] Apresoline) May interfere w/enteral feedings Take With [...] 60 MG / Biotin QPM, 0 018 [place] 0.3 MG / Folic Refill(s) Acid 0.8 [...] Active oral tablet PO, QPM, 0 018 [place] Refill(s) losartan 50 mg 50 mg = 1 No Longer oral tablet tab, PO, QAM Active 018 [place] & PM, 0 Refill(s) Tums 1,000 mg, Active CHEW, QAM & 018 [place] PM, 0 Refill(s) Docusate Sodium 100 mg = 1 Active 100 MG Oral cap, PO, QAM 018 [place] d Capsule & PM, 0 Refill(s) Vitamin D3 5000 5,000 Active intl units oral IntlUnit = 1 018 [place] capsule cap, PO, QPM, # 30 cap, 1 Refill(s) Hydralazine Notes: (Same No Longer as: Active 018 [place] Apresoline) Push over 5 minutes Labetalol 20 mg, 4 mL, Inactive Route: IVP, Job Leonardo Drug form: INJ, ONCE, Dosing Weight 68.5, kg, Start date: 04/22/17 3:57:00 CITY MANAGER, Stop date: 04/22/17 3:57:00 CITY MANAGER potassium Notes: (Same Inactive chloride 20 mEq as: K-Dur 20) 018 [place] oral tablet, "Do Not extended Crush" With release food and full glass of water Magnesium Notes: WASTE: Inactive Sulfate F/P - Sink; E 018 [place] - Municipal Trash Bin Isosorbide 90 mg, PO, Active Dinitrate QAM, 0 018 [place] Refill(s) Hydralazine 100 mg = 1 No Longer Hydrochloride tab, PO, TID, Active 018 [place] 100 MG Oral 0 Refill(s) Tablet clopidogrel 75 75 mg = 1 Active MG Oral Tablet tab, PO, QAM, 018 [place] [Plavix] 0 Refill(s) Aspirin 81 mg, PO, Active MH QAM, 0 018 [place] Refill(s) Hydralazine Notes: (Same Inactive as: 018 [place] Apresoline) Push over 5 minutes Insulin Lispro Notes: Roll No Longer MH in palms of Active 018 [place] hands gently; Do not shake `vigorously. (Same as: Humalog ) "Single Patient Use Only " WASTE: F/P - Black; E - Municipal Trash Bin Stable for 28 days at room temperature. Expires in days from _Date Dextrose 50% 12.5 gm, 25 No Longer MH Syringe mL, Route: Active 018 [place] IVP, Drug Form: INJ, Dosing Weight 68.5, kg, PRN, PRN Blood Glucose Results, Start date: 04/22/17 1:43:00 CITY MANAGER, Duration: 30 day, Stop date: 05/22/17 1:42:00 CITY MANAGER Glucagon 1 mg, Route: No Longer IM, Drug Active 018 [place] form: PDR/INJ, PRN, Dosing Weight 68.5, kg, PRN Blood Glucose Results, Start date: 04/22/17 1:43:00 CITY MANAGER, Duration: 30 day, Stop date: 05/22/17 1:42:00 CITY MANAGER NIFEdipine 60 Notes: (Same No Longer MH mg oral tablet, as: Adalat Active 018 [place] and extended CC, Procardia release XL) Give on empty stomach. Take 1 hour before or 2 hours after meal; "Avoid grapefruit and grapefruit juice". Do not crush Losartan Notes: (Same No Longer as: Cozaar) Active 018 [place] Acetaminophen Notes: Do not No Longer exceed 4 Active 018 [place] gm/day. (Same as: Tylenol) aspirin 81 mg [...] Active [facility] B complex and C mouth. [facility] (DIALYVITE 800 ORAL) Melatonin 5 mg [...] Data M H sup>1</sup> allergy migrated [facility] from [facility] on 10/17/14. Originally documented as PENICILLIN . diazepam<sup Assertion Drug Active Data M H >2</sup> allergy migrated [place] from [employer] on 07/18/14. Originally documented as VALIUM. fexofenadine Assertion Drug Active Data M H <sup>3</sup> allergy migrated [place] from [employer] on 07/18/14. Originally documented as FANY ALLERGY. gatifloxacin Assertion Drug Active Data M H <sup>4</sup> allergy migrated [place] from [employer] on 07/18/14. Originally documented as TEQUIN. Tequin Assertion Drug Active MH allergy [place] DULoxetine<s Assertion Drug Active Data M H up>5</sup> allergy migrated [place] from [employer] on 07/18/14. Originally documented as CYMBALTA. Immunizations Immunization Date Given Site Status Last Comments Source Updated Hx influenza 12/23/2011 completed Result [place] vaccine-unspecifi Comment: flu ed<sup>1</sup> shot. Migrated from [facility]BS ; Data migrated from [employer] on 04/22/2015. Results Order Name Results Value Reference Date Interpretation Comments Mandy rce Range CHEM PANEL eGFR 14 11/26 Result Comment: The [place] eGFR is calculated using the CKD-EPI formula. [...] Glucose Lvl 190 70 - 99 11/26 [place] CHEM PANEL BUN 22 7 - 22 11/26 [place] CHEM PANEL Creatinine 3.20 0.50 - 11/26 MH Lvl 1.40 [place] CHEM PANEL Sodium Lvl 134 135 - 145 09/08 /2017 [place] CHEM PANEL CO2 27 24 - 32 09/08 [place] CHEM PANEL Chloride Lvl 98 95 - 109 09/08 [place] CHEM PANEL Potassium 3.9 3.5 - 5.1 09/08 MH Lvl /2017 [place] CHEM PANEL AGAP 12.9 10.0 - 09/08 MH 20.0 [place] CHEM PANEL Calcium Lvl 8.1 8.5 - 10.5 09/08 /2017 [place] HEMATOLOGY Lymphocytes 0.7 1.0 - 5.5 09/08 MH # /2017 [place] HEMATOLOGY Eosinophils 0.1 0.0 - 0.5 09/08 MH # /2017 [place] HEMATOLOGY Monocytes # 0.5 0.0 - 0.8 09/08 [place] HEMATOLOGY Eosinophils 0.9 0.0 - 4.0 09/08 [place] HEMATOLOGY Monocytes 5.3 2.0 - 12.0 09/08 [place] HEMATOLOGY Neutrophils 7.3 1.5 - 8.1 09/08 MH # /2017 [place] HEMATOLOGY Basophils 0.6 0.0 - 1.0 09/08 /2017 [place] HEMATOLOGY Lymphocytes 8.4 20.0 - 09/08 MH 40.0 [place] HEMATOLOGY Segs 84.8 45.0 - 09/08 MH 75.0 [place] HEMATOLOGY Basophils # 0.1 0.0 - 0.2 09/08 [place] HEMATOLOGY MCHC 34.5 32.0 - 0908 MH 36.0 [place] HEMATOLOGY RDW 15.1 11.5 - 09/08 MH 14.5 [place] HEMATOLOGY Platelet 137 133 - 450 09/08 [place] HEMATOLOGY MPV 8.2 7.4 - 10.4 09/08 /2017 [place] HEMATOLOGY RBC 2.73 4.20 - 09/08 MH 5.40 [place] HEMATOLOGY Hgb 8.9 12.0 - 09/08 MH 16.0 [place] HEMATOLOGY Hct 25.9 36.0 - 09/08 MH 48.0 [place] HEMATOLOGY MCV 94.8 80.0 - 09/08 MH 98.0 [place] HEMATOLOGY MCH 32.7 27.0 - 09/08 MH 31.0 [place] HEMATOLOGY WBC 8.6 3.7 - 10.4 11/26 /2017 [place] BACTERIAL - MRSA by PCR Negative 11/26 SEROLOGY (11/26/17 12:49 AM) /2017 [place] and ANEMIA Folate Lvl 31.9 >=3.0 11/26 STUDY ng/mL /2017 [place] ANEMIA Vitamin B12 707 254 - 1320 11/26 STUDY Lvl /2017 [place] ANEMIA Ferritin Lvl 2302 5 - 204 11/26 STUDY /2017 [place] CHEM PANEL LDH 207 98 - 192 11/26 MH [place] CHEM PANEL Bili 0.2 0.0 - 1.0 11/26 Indirect /2017 [place] CHEM PANEL Bili Total 0.4 0.2 - 1.3 11/26 [place] CHEM PANEL Bili Direct 0.2 0.0 - 0.3 11/26 [place] HEMATOLOGY Retic Auto 1.6 0.5 - 1.5 11/26 [place] IMMUNOLOGY Homocyst Tot 25.8 3.7 - 13.9 11/26 [place] ORGANIC Disclaimer Comment 11/26 Result ACID (Org Acid) /2017 Comment: [place]
This test was developed and its performance characteristi cs
determ ined by [facility]. It has not been cleared or
approv ed by the Food and Drug Administratio n.
Perfor med At: [facility]
[address] [place], [place] [id number]< br/>Delicia Simeon MD Ph:[phone] ORGANIC MMA Qnt 572 0 - 378 11/26 ACID /2017 [place] BLOOD BANK RBC product Product available 1 11/25 Resul t MH RESULTS (11/25/17 6:45 PM) /2017 Comment: [place] 11/25/2017 18:46 [id number]
Blood available, notified Wilbert/ Evelyn at 11/25/2017 18:46_ by _LL. BLOOD BANK Antibody Negative 11/25 RESULTS Scrn (11/25/17 5:20 PM) /2017 Carolyn d BLOOD BANK RBC product Product available 2 11/25 Resul t MH RESULTS (11/25/17 5:20 PM) /2017 Comment: [place] 11/25/2017 19:32 [id number]
called to sandro for olive picker at 1923 11/25/2017 19:32 tb BLOOD BANK ABO/Rh A NEG 11/25 MH RESULTS [place] ELECTROLYTE AGAP 13.7 10.0 - 09 MH S 20.0 /2017 [place] ELECTROLYTE B/C Ratio 8 6 - 25 11/25 MH S [place] ELECTROLYTE A/G Ratio 0.8 0.7 - 1.6 11/25 MH S [place] ELECTROLYTE Globulin 3.9 2.7 - 4.2 11/25 MH S [place] ELECTROLYTE Chloride Lvl 101 95 - 109 11/25 MH S [place] ELECTROLYTE Sodium Lvl 138 135 - 145 11/25 MH S [place] ELECTROLYTE Potassium 3.7 3.5 - 5.1 11/25 MH S Lvl /2017 [place] ELECTROLYTE AST 31 0 - 37 11/25 MH S [place] ELECTROLYTE ALT 25 0 - 65 11/25 MH S [place] ELECTROLYTE Albumin Lvl 3.1 3.5 - 5.0 11/25 MH S [place] ELECTROLYTE Calcium Lvl 8.0 8.5 - 10.5 11/25 S [place] ELECTROLYTE CO2 27 24 - 32 11/25 MH S [place] ELECTROLYTE BUN 41 7 - 22 11/25 MH S [place] ELECTROLYTE Glucose Lvl 114 70 - 99 11/25 MH S [place] ELECTROLYTE Total 7.0 6.4 - 8.4 11/25 MH S Protein [facility] ELECTROLYTE Creatinine 4.96 0.50 - 11/25 MH S Lvl 1.40 /2017 [place] ELECTROLYTE Bili Total 0.4 0.2 - 1.3 11/25 MH S [place] ELECTROLYTE Alk Phos 73 39 - 136 11/25 MH S [place] ELECTROLYTE eGFR 8 11/25 Result MH S Comment: The [facility] eGFR is calculated using the CKD-EPI formula. [...] HEMATOLOGY WBC 6.3 3.7 - 10.4 11/25 [place] HEMATOLOGY RBC 1.95 4.20 - 11/25 MH 5.40 /2017 [place] HEMATOLOGY Hgb 6.3 12.0 - 11/25 Result MH 16.0 Comment: [place] Critical Result(s) called to [facility]/ at _11/25/2017 17:31 by_cg Read back OK. HEMATOLOGY Hct 18.3 36.0 - 11/25 Result 48.0 Comment: [place] Critical Result(s) called to [facility] at _11/25/2017 17:31 by_cg Read back OK. HEMATOLOGY MCHC 34.5 32.0 - 11/25 MH 36.0 /2017 [place] HEMATOLOGY MCH 32.4 27.0 - 11/25 MH 31.0 [place] HEMATOLOGY MCV 93.7 80.0 - 11/25 MH 98.0 /2017 [place] HEMATOLOGY MPV 8.1 7.4 - 10.4 11/25 [place] HEMATOLOGY Platelet 129 133 - 450 11/25 [place] HEMATOLOGY RDW 16.3 11.5 - 11/25 MH 14.5 [place] HEMATOLOGY Neutrophils 5.1 1.5 - 8.1 11/25 MH # /2018 [place] HEMATOLOGY Monocytes # 0.3 0.0 - 0.8 11/25 /2017 [place] HEMATOLOGY Lymphocytes 0.8 1.0 - 5.5 11/25 MH # /2018 [place] HEMATOLOGY Hypochrom 1+ None Seen 11/25 (11/25/17 5:20 PM) /[facility] Microcyte 1+ None Seen 11/25 MH *ABN* /2017 [place] (9/7/18 5:20 PM) HEMATOLOGY Anisocyte 1+ None Seen 11/25 MH *ABN* /2017 [place] (11/25/17 5:20 PM) HEMATOLOGY RBC Morph See Note 11/25 (11/25/17 5:20 PM) /2017 [facility] d HEMATOLOGY Segs 80.8 45.0 - 11/25 MH 75.0 [place] HEMATOLOGY Plt Morph Normal 11/25 (11/25/17 5:20 PM) /2017 [facility] d HEMATOLOGY Monocytes 5.5 2.0 - 12.0 11/25 [place] HEMATOLOGY Lymphocytes 13.0 20.0 - 11/25 MH 40.0 [place] HEMATOLOGY Basophils 0.5 0.0 - 1.0 11/25 [place] HEMATOLOGY Eosinophils 0.2 0.0 - 4.0 11/25 [place] HEMATOLOGY Spherocyte Occasional None Seen 11/25 MH *ABN* /2017 [place] (11/25/17 5:20 PM) HEMATOLOGY Tear Cell Few 11/25 [facility] IMMUNOLOGY Hep Bs Ag Negative Negative 11/25 *NA* /2017 [facility] (11/25/17 5:20 PM) ELECTROLYTE AGAP 10.8 10.0 - 04/29 MH S 20. [facility] ELECTROLYTE eGFR 15 04/29 Result Comment: The [facility] eGFR is calculated using the CKD-EPI formula. [...] 8.5 8.5 - 10.5 04/29 MH S [facility] ELECTROLYTE Creatinine 3.11 0.50 - 02 MH S Lvl 1.40 /2017 [place] ELECTROLYTE Glucose Lvl 82 70 - 99 02/ MH S /2017 [place] ELECTROLYTE Sodium Lvl 135 135 - 145 02/ MH S /2017 [facility] ELECTROLYTE Chloride Lvl 99 95 - 109 / MH S /2017 [place] ELECTROLYTE CO2 30 24 - 32 / MH S /2017 [place] ELECTROLYTE Potassium 4.8 3.5 - 5.1 02/ MH S Lvl /2017 [place] ELECTROLYTE BUN 19 7 - 22 02/ MH S /2017 [facility] HEMATOLOGY Basophils 0.7 0.0 - 1.0 04/29 /2017 [facility] HEMATOLOGY Eosinophils 1.3 0.0 - 4.0 04/29 /2017 [facility] HEMATOLOGY Segs 74.6 45.0 - 02 MH 75.0 [facility] HEMATOLOGY Monocytes # 0.4 0.0 - 0.8 04/29 [facility] HEMATOLOGY Segs-Bands # 3.9 1.5 - 8.1 04/29 /2017 [facility] HEMATOLOGY Lymphocytes 0.8 1.0 - 5.5 04/29 MH # /2017 [place] HEMATOLOGY Eosinophils 0.1 0.0 - 0.5 04/29 MH # /2017 [place] HEMATOLOGY Lymphocytes 15.1 20.0 - 02 MH 40.0 [place] HEMATOLOGY Monocytes 8.3 2.0 - 12.0 04/29 [facility] HEMATOLOGY RDW 14.7 11.5 - 04/29 MH 14.5 [facility] HEMATOLOGY Platelet 204 133 - 450 04/29 [facility] HEMATOLOGY MPV 8.5 7.4 - 10.4 04/29 [facility] HEMATOLOGY MCV 96.8 80.0 - 04/29 MH 98.0 [facility] HEMATOLOGY Hct 28.5 36.0 - 02 MH 48.0 [place] HEMATOLOGY MCHC 35.6 32.0 - 02/ MH 36.0 [facility] HEMATOLOGY MCH 34.4 27.0 - 02/ MH 31.0 [facility] HEMATOLOGY WBC 5.2 3.7 - 10.4 04/29 [facility] RBC 2.94 4.20 - 02 MH 5.40 [facility] Hgb 10.1 12.0 - 02 MH 16.0 [facility] ELECTROLYTE Potassium 5.3 3.5 - 5.1 04/28 S Lvl /2017 [facility] ABO/Rh A NEG 04/28 RESULTS /2017 [facility] Antibody Negative 04/28 RESULTS Scrn (04/28/17 7:30 AM) [facility] RBC product Product available 1 04/28 Resul t MH RESULTS (04/28/17 7:00 AM) Comment: [place] 04/28/2017 09:20 [id number]
Blood available, notified Ravi Deleon at 04/28/2017 09:19 by VV. CHEM PANEL eGFR 9 04/28 Result Comment: The [facility] eGFR is calculated using the CKD-EPI formula. [...] Calcium Lvl 8.2 8.5 - 10.5 04/28 [facility] CHEM PANEL CO2 29 24 - 32 04/28 [facility] CHEM PANEL Sodium Lvl 130 135 - 145 04/28 [facility] CHEM PANEL Chloride Lvl 97 95 - 109 04/28 [facility] CHEM PANEL Potassium 5.7 3.5 - 5.1 04/28 Lvl [facility] CHEM PANEL BUN 37 7 - 22 04/28 [facility] CHEM PANEL Glucose Lvl 87 70 - 99 04/28 [facility] CHEM PANEL Creatinine 4.70 0.50 - 02 Lvl 1.40 [facility] CHEM PANEL AGAP 9.7 10.0 - 02/08 MH 20.0 /2017 [facility] HEMATOLOGY Platelet 176 133 - 450 02 MH [facility] HEMATOLOGY MPV 8.1 7.4 - 10.4 02 MH /2017 [facility] HEMATOLOGY RDW 13.6 11.5 - 02/ MH 14.5 /2017 [facility] HEMATOLOGY MCH 34.9 27.0 - 02/08 MH 31.0 /2017 [facility] HEMATOLOGY MCHC 35.4 32.0 - 02/ MH 36.0 /2017 [facility] HEMATOLOGY Hgb 6.5 12.0 - 02/08 Result MH 16.0 /2017 Comment: [facility] Critical Result(s) called to andrew fuentes at 04/28/2017 04:20 by rush. Read back OK. HEMATOLOGY MCV 98.6 80.0 - 02 MH 98.0 [facility] HEMATOLOGY Hct 18.5 36.0 - 0208 Result 48.0 Comment: [facility] Critical Result(s) called to andrew fuentes at 04/28/2017 04:20 by gg. Read back OK. HEMATOLOGY WBC 4.2 3.7 - 10.4 04/28 [facility] HEMATOLOGY RBC 1.87 4.20 - 0208 MH 5.40 /2017 [facility] HEMATOLOGY Monocytes # 0.4 0.0 - 0.8 04/28 MH [facility] HEMATOLOGY Eosinophils 0.1 0.0 - 0.5 /08 MH # /2017 [facility] HEMATOLOGY Segs-Bands # 2.7 1.5 - 8.1 04/28 [facility] HEMATOLOGY Lymphocytes 1.0 1.0 - 5.5 02/08 MH # /2017 [facility] HEMATOLOGY Lymphocytes 24.2 20.0 - 02/08 MH 40.0 [facility] HEMATOLOGY Segs 64.0 45.0 - 02/08 MH 75.0 /2018 [facility] HEMATOLOGY Monocytes 8.8 2.0 - 12.0 /08 MH [facility] HEMATOLOGY Eosinophils 2.1 0.0 - 4.0 /08 MH [facility] HEMATOLOGY Basophils 0.9 0.0 - 1.0 02/ MH /2017 [facility] HEMATOLOGY WBC 4.2 3.7 - 10.4 02/ MH [facility] HEMATOLOGY Hct 19.3 36.0 - 02/08 Result MH 48.0 /2018 Comment: [facility] Critical Result(s) called to Elle Fuentes RN at 04/27/2017 20:13 by GN. Read back OK. HEMATOLOGY MCV 98.8 80.0 - 02/ MH 98.0 /2017 [facility] HEMATOLOGY Hgb 7.0 12.0 - 08 Result MH 16.0 Comment: [facility] Critical Result(s) called to Elle Fuentes RN at 04/27/2017 20:12 by GNF. Read back OK. HEMATOLOGY MCH 35.6 27.0 - 02/08 MH 31.0 /2017 [facility] HEMATOLOGY RBC 1.95 4.20 - 02/08 MH 5.40 /2017 [facility] HEMATOLOGY MPV 8.6 7.4 - 10.4 / MH /2017 [facility] HEMATOLOGY Platelet 183 133 - 450 02 MH /2017 [facility] HEMATOLOGY MCHC 36.0 32.0 - 02/08 MH 36.0 /2017 [facility] HEMATOLOGY RDW 13.8 11.5 - 02 MH 14.5 [facility] ELECTROLYTE Chloride Lvl 97 95 - 109 02/ S /2017 [facility] ELECTROLYTE Sodium Lvl 133 135 - 145 02/ S /2017 [facility] ELECTROLYTE Creatinine 3.24 0.50 - 02 S Lvl 1.40 /2017 [facility] ELECTROLYTE CO2 31 24 - 32 02/ MH S /2017 [facility] ELECTROLYTE Calcium Lvl 8.4 8.5 - 10.5 02 MH S /2017 [facility] ELECTROLYTE AGAP 9.2 10.0 - 02/06 MH S 20.0 [facility] ELECTROLYTE Glucose Lvl 75 70 - 99 04/26 MH S /2017 [facility] ELECTROLYTE BUN 22 7 - 22 02/ S /2017 [facility] ELECTROLYTE eGFR 14 02 Result S Comment: The [facility] eGFR is calculated using the CKD-EPI formula. [...] Bs Ag Negative Negative 04/22 *NA* /2017 [facility] (04/22/17 9:31 AM) ANEMIA TRANSFERRIN 124 212 - 360 04/22 STUDY [facility] ANEMIA Ferritin Lvl 1690 5 - 204 04/22 STUDY [facility] ANEMIA % Satur Fe 16 12 - 57 04/22 [facility] ANEMIA UIBC 128 110 - 370 04/22 [facility] ANEMIA TIBC 153 228 - 428 04/22 STUDY [facility] ANEMIA Iron 25 30 - 160 04/22 [facility] CARDIAC Troponin-I 0.06 0.00 - 04/22 ENZYMES 0.40 [facility] CARDIAC Total CK 70 12 - 191 04/22 ENZYMES [facility] CARDIAC proBNP 39166 0 - 450 04/22 ENZYMES [facility] CHEM PANEL Phosphorus 2.4 2.5 - 4.5 04/22 [facility] CHEM PANEL Magnesium 2.2 1.8 - 2.4 04/22 Lvl [facility] CHEM PANEL B/C Ratio 7 6 - 25 04/22 [facility] CHEM PANEL A/G Ratio 1.0 0.7 - 1.6 04/22 [facility] CHEM PANEL Globulin 2.9 2.7 - 4.2 04/22 [facility] CHEM PANEL Albumin Lvl 2.9 3.5 - 5.0 04/22 [facility] CHEM PANEL Bili Total 0.6 0.2 - 1.3 04/22 [facility] CHEM PANEL AST 18 0 - 37 04/22 [facility] CHEM PANEL ALT 16 0 - 65 04/22 [facility] CHEM PANEL Alk Phos 69 39 - 136 04/22 [facility] CHEM PANEL Total 5.8 6.4 - 8.4 04/22 Protein [facility] HEMATOLOGY Monocytes # 0.5 0.0 - 0.8 04/22 [facility] HEMATOLOGY Lymphocytes 0.6 1.0 - 5.5 / MH # /2018 [facility] HEMATOLOGY Segs 83.9 45.0 - / MH 75.0 /2018 [facility] HEMATOLOGY Basophils 0.5 0.0 - 1.0 04/22 [facility] HEMATOLOGY Eosinophils 0.7 0.0 - 4.0 / MH /2017 [facility] HEMATOLOGY Lymphocytes 8.2 20.0 - 02/ MH 40.0 /2018 [facility] HEMATOLOGY Monocytes 6.7 2.0 - 12.0 04/22 [facility] HEMATOLOGY Segs-Bands # 5.7 1.5 - 8.1 / MH /2018 [facility] HEMATOLOGY INR 1.12 0.85 - 04/22 MH 1.17 /2017 [facility] HEMATOLOGY PT 14.4 12.0 - 04/22 MH 14.7 [facility] HEMATOLOGY PTT 34.0 22.9 - 04/22 MH 35.8 /2017 [facility] CARDIAC Troponin-I 0.04 0.00 - 04/22 ENZYMES 0.40 /2017 [facility] CARDIAC Total CK 85 12 - 191 04/22 ENZYMES [facility] CARDIAC CK MB Index <0.6 0.0 - 2.5 04/22 ENZYMES /2017 [facility] CARDIAC CK MB <0.5 0.5 - 3.6 04/22 ENZYMES /2017 [facility] BACTERIAL - MRSA by PCR Negative 04/22 [facility] (04/22/17 2:38 AM) [facility] CHEM PANEL AST 18 0 - 37 04/22 [facility] CHEM PANEL Alk Phos 74 39 - 136 04/22 [facility] CHEM PANEL Bili Total 0.7 0.2 - 1.3 04/22 [facility] CHEM PANEL Albumin Lvl 3.1 3.5 - 5.0 04/22 [facility] CHEM PANEL Total 6.9 6.4 - 8.4 04/22 Protein [facility] CHEM PANEL Globulin 3.8 2.7 - 4.2 04/22 [facility] CHEM PANEL A/G Ratio 0.8 0.7 - 1.6 04/22 [facility] CHEM PANEL ALT 14 0 - 65 04/22 [facility] CHEM PANEL B/C Ratio 7 6 - 25 04/22 [facility] CHEM PANEL Magnesium 1.9 1.8 - 2.4 / Lvl /2018 [facility] HEMATOLOGY INR 1.10 0.85 - 02 MH 1.17 /2017 [facility] HEMATOLOGY PT 14.2 12.0 - 02 MH 14.7 /2017 [facility] HEMATOLOGY PTT 37.7 22.9 - 02 MH 35.8 /2018 [facility] HEMATOLOGY Eosinophils 0.1 0.0 - 0.5 04/22 MH # /2018 [facility] Pathology Reports No Data Provided for This Section Diagnostic Reports Report Value Date Source Chest 2 views DX EXAM: Chest 2 views DX 04/27/2017 [facility] DATE: 04/27/2017 7:21 PM CITY [employer]NAGER INDICATION: - Shortness of Breath COMPARISON: None. [...] Comments Source Systolic (mm Hg) 172 11/28/2018 [facility] Health Diastolic (mm Hg) 59 11/28/2018 [facility] h Heart Rate 90 11/28/2018 [facility] Health Temperature Oral (F) 36.83 Jeanna 11/28/2018 [facility] alth Respitory Rate 18 11/28/2018 [facility] Height 167.6 cm 11/28/2018 [facility] Health Weight 68.947 11/28/2018 [facility] Health Systolic (mm Hg) 97 10/17/2018 [facility] Health Diastolic (mm Hg) 47 10/17/[facility] 85 10/17/2018 [facility] Temperature Oral (F) 37 Jeanna 10/17/2018 [facility] He alth Respitory Rate 18 10/17/2018 [facility] Health Height 165.1 cm 10/17/2018 [facility] Health Weight 68.947 10/17/2018 [facility] Systolic (mm Hg) 137 11/27/2017 [facility] Diastolic (mm Hg) 58 11/27/2017 [place] [facility] Respitory Rate 18 11/27/2017 [facility] Respitory Rate 16 11/26/2017 [facility] Systolic (mm Hg) 120 11/26/2017 [facility] Diastolic (mm Hg) 100 11/26/2017 [facility] [place] [facility] Systolic (mm Hg) 131 11/26/2017 MH [facility] Diastolic (mm Hg) 54 11/26/2017 [facility] [place] Respitory Rate 17 11/26/2017 [facility] Temperature Oral (F) 98.0 F 11/26/2017 [facility] [place] Temperature Oral (F) 97.6 F 11/26/2017 [facility] [place] Temperature Oral (F) 98.5 F 11/26/2017 [facility] [place] Heart Rate 75 11/26/2017 [facility] Heart Rate 83 11/25/2017 [facility] BMI Calculated 24.18 11/25/2017 [facility] Weight 65.909 11/25/2017 [facility] Height 165.1 cm 11/25/2017 [facility] Heart Rate 86 11/25/2017 [facility] Heart Rate 66 04/29/2017 [facility] Systolic (mm Hg) 173 04/29/2017 [facility] Diastolic (mm Hg) 50 04/29/2017 [place] Systolic (mm Hg) 176 04/29/2017 [facility] Diastolic (mm Hg) 50 04/29/2017 [facility] [place] Respitory Rate 17 04/29/2017 [facility] Heart Rate 57 04/29/2017 [facility] Temperature Oral (F) 98.4 F 04/29/2017 [place] Temperature Oral (F) 97.8 F 04/29/2017 [place] Heart Rate 57 04/29/2017 [facility] Respitory Rate 16 04/29/2017 [facility] Systolic (mm Hg) 159 04/29/2017 [facility] Diastolic (mm Hg) 75 04/29/2017 [place] Respitory Rate 16 04/29/2017 [facility] Temperature Oral (F) 98.4 F 04/29/2017 [place] BMI Calculated 25.13 04/22/2017 [facility] Weight 68.5 04/22/2017 [facility] Height 165.1 cm 04/22/2017 [facility] BMI Calculated 25.13 04/22/2017 [facility] Weight 68.5 04/22/2017 [facility] Height 165.1 cm 04/22/2017 [facility] Height 165.1 cm 04/22/2017 [facility] Encounters Location Location Encounter Encounter Reason Attending ADM CT Stat us Source Details Type Number For Provider Date Date Visit [facility] [id number] Gregg 04/22 04/30 KEVON Sandra /2017 [facility] Inpatient [id number] Bruno 11/25 11/27 KEVON Jones /2017 [facility] Office [id number] Silvana 10/17 10/17 [facility] [id number] Silvana 11/28 [facility] Health (Out) [facility] [id number] Silvana 11/28 11/28 [facility] Health Visit Yana DE [facility] SANTOS [facility] Procedure Code Date Perfomer Comments Source Bilateral extraction [id number] Jorden of cataracts Caesarean section 84550633 [place] Carotid angiogram 142596088 [place] Cholecystectomy 38450402 [place] Provision of stents 34729196 Kidney Pe [place] or bite stents blocks<sup>1</sup> [...] Tuesday. Access left upper extremity AV fistula. Heel Seat Laster Dr. Guardado. No hyperkalemia. Euvolemic. S/p Urgent [...] for HD today. Any question please call [phone] Extracted from:Title: Nephrology consultation. Author: Eliseo Schultz MD Date: 11/25/17 Impression and Plan 87-year-old female with history of hyper tension, diabetes, end-stage renal disease on hemodialysis, congestive heart failure, chronic anemia, who presented to emergency room complaining of shortness of breath. 1. End-stage renal disease on hemodialy sis. Hemodialysis on Tuesday and Tuesday. Last hemodialysis last Tuesday. Access left upper extremity AV fistula. Heel Seat Laster Dr. Guardado. No hyperkalemia. Clinically hypervolemic. 2. Severe anemia. 3. Fluid overload. 4. Chronic congestive heart failure. 5. Diabetes mellitus type 2. 6. Thrombocytopenia. Recommendation. Stat hemodialysis with transfusion of 2 units of packed RBC. Epogen 7,000 units subcutaneous 3 times daily. Anemia workup. Discussed case with Dr. Jones. Thank you for the consultation, any question please call [phone] Extracted from:Title: History and Physical Author: Bruno [...] home medications, uncontrolle dpatient was transferred to [facility] for further blood pressure monitoring. 6.Diabetes [...] Patient evaluated in the emergency room at [facility]. Tra nsfer for fluid overload and [...] Care Date Source INFLUENZA VACCINE (#1) 2018 [facility] Upcoming EncountersDateTypeSpecialtyCare TeamDescription [facility] 11/28/2018 Office Visit Vascular Surgery Silvana Millan MD[address] [place] [address] [phone] (Fax) Health MaintenanceDue DateLast DoneComments DTaP,Tdap,and Td Vaccines (1 - Tdap) 1949 Zoster Recombinant Vaccine (SHINGRIX) (1 of 2) 1980 Medicare Wellness Visit 09/27/1995 Osteoporosis Screening 09/27/1995 PNEUMOCOCCAL VACCINES 65+ (1 of 2 - PCV13) 09/27/1995 INFLUENZA VACCINE 11/19/2018 documented as of this encounter Medicare Wellness Visit 09/27/1995 [facility] Zoster Recombinant Vaccine (SHINGRIX) (1 of 2) 1980 [facility] DTaP,Tdap,and Td Vaccines (1 - Tdap) 1949 [facility] Health Social History Social History Date Source Tobacco UseTypesPacks/DayYears UsedDate 11/28/2018 [facility] Never Smoker Smokeless Tobacco: Never Used [...]
--- OUTSIDE RECORDS SUMMARY | 2019-09-12 17:01 | XMS REPORT | Continuity of Care Document ---
:1930 Author Organization [facility] t Address [address] [place] [address] Care Team Providers Name Role Phone Raudel Marie MD Primary Care Physician Nat VELEZ Attending Clinician Unavailable Rosie DE LOS SANTOS I. Attending Clinician Steph DE LOS SANTOS Attending Clinician Poppy Pratt MD Attending Clinician Yana DE LOS SANTOS Attending Clinician Robert Attending Clinician Jocy Attending Clinician Nat VELEZ Admitting Clinician Unavailable Robert Admitting Clinician Jocy Admitting Clinician Payers Payer Name Policy Type Policy Number Effective Date Expiration Source Date HUMANA - MEDICARE MGD xxxxxxxxx [id number] Problems Condition Condition Condition Status Onset Resolution Last Treating Co mments Source Name Details Category Date Date Treatment Clinician Date Essential Essential Disease Active 2018-03 [facility] 04[facility]19 Grazyna kes - on on [facility]: [facility] Anemia of Anemia of Disease Active 2018-[address] [facility] chronic chronic 04-19 [facility] disease disease [facility] Acute Acute Disease Active 2018- [facility] encephalop encephalop 04-19 Grazyna kes - athy athy 00:00: Medical 00 Center Acute Acute Disease Active 2019- [facility] ischemic ischemic 04-18 kes - stroke stroke 00:00: Medical 00 Center Dialysis Condition Active 2018-11-28 M emoria AV fistula -24 23:24:39 l malfunctio Dialysis 00:00: He rmann n, initial AV fistula 00 encounter malfunctio n, initial encounter Active 07/12/2018 11/28/[address] [facility] CHF, Diagnosis Active 2017-12-23 Mem oria SYMPTOMATI 11-25 11:55:00 l C ANEMIA CHF, 00:00: [place] SYMPTOMATI 00 C ANEMIA Active 11/25/2017 [facility] [place] CHF Diagnosis Active 2017-04-21 Mem oria EXACERBATI 2- 23:00:00 l ON CHF 00:00: [place] EXACERBATI 00 ON Active 8 [facility] [place] ACUTE Diagnosis Active 2017-05-03 Mem oria CONGESTIVE 2- 21:59:00 l HEART ACUTE 00:00: Hugo FAILURE, CONGESTIVE 00 ESRD HEART FAILURE, ESRD Active 04/21/2017 [facility] Hip pain Problem Active 2012-032018-06-15 Mem oria (finding) 0-16 12:10:10 l Hip pain 00:00: Rony n (finding) 00 Active 01/03/2013 Problem 06/15/2018 Data migrated from [employer] on 08/17/14. [facility] Iron Problem Active 2012-032018-06-15 Memor ia deficiency 0-09 12:10:10 l anemia Iron 00:00: [place] (disorder) deficiency 00 anemia (disorder) Active 12/27/2012 Problem 06/15/2018 Data migrated from [employer] on 08/17/14. [facility] Loss of Problem Active 2012-032018-06-15 Migel lalita appetite 0-09 12:10:10 l (finding) Loss of 00:00: Herm dave appetite 00 (finding) Active 12/27/2012 Problem 06/15/2018 Data migrated from [employer] on 08/17/14. [facility] Gastroesop Problem Active 2018-06-15 M emoria hageal 6-10 12:10:10 l reflux 00:00: Hugo disease Gastroesop 00 (disorder) hageal reflux disease (disorder) Active 08/28/2012 Problem 06/15/2018 Data migrated from [employer] on 08/17/14. [facility] Lung mass Problem Active 2018-06-15 Me moria (finding) 2-13 12:10:10 l Lung 00:00: Hugo mass 00 (finding) Active 05/03/2012 Problem 06/15/2018 Data migrated from [employer] on 08/17/14. [facility] Thyroid Problem Active 2018-06-15 Migel lalita nodule 2-13 12:10:10 l (disorder) Thyroid 00:00: Her osullivan nodule 00 (disorder) Active 05/03/2012 Problem 06/15/2018 Data migrated from [employer] on 08/17/14. [facility] Osteoarthr Problem Active 2011-032018-06-15 M emoria itis of 0-17 12:10:10 l knee 00:00: Hugo (disorder) Osteoarthr 00 itis of knee (disorder) Active 01/05/2012 Problem 06/15/2018 Data migrated from [employer] on 08/17/14. [facility] Long-term Problem Active 2018-06-15 Me moria drug 8-13 12:10:10 l therapy 00:00: [place] (procedure Long-term 00 ) drug therapy (procedure ) Active 11/01/2011 Problem 06/15/2018 Data migrated from [employer] on 08/17/14. [facility] Malaise Problem Active 2018-06-15 Migel lalita and 8-13 12:10:10 l fatigue Malaise 00:00: Rony n (finding) and 00 fatigue (finding) Active 11/01/2011 Problem 06/15/2018 Data migrated from [employer] on 08/17/14. [facility] Abnormal Problem Active 2018-06-15 Mem oria cytology - 12:10:10 l findings Abnormal 00:00: Herm dave (finding) cytology 00 findings (finding) Active 10/18/2011 Problem 06/15/2018 Data migrated from [employer] on 08/17/14. [facility] ESRD on ESRD on Disease Active [facility] hemodialys hemodialys Grazyna shabnam - is is [facility] Center End stage Problem 2018-06-15 Me moria renal 12:10:10 l disease End Hugo stage renal disease 06/15/2018 [facility] Hypertensi Problem 2018-06-15 M emoria ve heart 12:10:10 l and Hugo chronic Hypertensi kidney ve heart disease and with heart chronic failure kidney and with disease stage 5 with heart chronic failure kidney and with disease, stage 5 or end chronic stage kidney renal disease, disease or end stage renal disease 06/15/2018 [facility] Hypo-osmol Problem 2018-06-15 M emoria ality and 12:10:10 l hyponatrem Rony n ia Hypo-osmol ality and hyponatrem ia 06/15/2018 [facility] Nontoxic Problem 2018-06-15 Mem oria single 12:10:10 l thyroid Nontoxic Sandy nn nodule single thyroid nodule 06/15/2018 [facility] Type 2 Problem 2018-06-15 Memor ia diabetes 12:10:10 l mellitus 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 06/15/2018 [facility] Pure Problem 2018-06-15 Memor ia hyperchole 12:10:10 l sterolemia Pure Rony n , hyperchole unspecifie sterolemia d , unspecifie d 06/15/2018 [facility] Heart Problem 2018-06-15 Memor ia failure, 12:10:10 l unspecifie Heart Sandy nn d failure, unspecifie d 06/15/2018 [facility] Unilateral Problem 2018-06-15 M emoria primary 12:10:10 l osteoarthr Rony n itis, Unilateral unspecifie primary d knee osteoarthr itis, unspecifie d knee 06/15/2018 [facility] Anemia in Problem 2018-06-15 Me moria other 12:10:10 l chronic Anemia Hugo diseases in other classified chronic elsewhere diseases classified elsewhere 06/15/2018 [facility] Thrombocyt Problem 2018-06-15 M emoria openia, 12:10:10 l unspecifie Rony n d Thrombocyt openia, unspecifie d 06/15/2018 [facility] Hypertensi Problem 2018-06-15 M emoria ve urgency 12:10:10 l [place] Hypertensi ve urgency 06/15/2018 [facility] Gastro-eso Problem 2018-06-15 M emoria phageal 12:10:10 l reflux [place] disease Gastro-eso without phageal esophagiti reflux s disease without esophagiti s 06/15/2018 [facility] Nicotine Problem 2018-06-15 Mem oria dependence 12:10:10 l , Nicotine Rony n cigarettes dependence , , uncomplica cigarettes ella , uncomplica ella 06/15/2018 [facility] Dependence Problem 2018-06-15 M emoria on renal 12:10:10 l dialysis Hugo Dependence on renal dialysis 06/15/2018 [facility] Acute Problem 2017-08-05 Memor ia respirator 12:26:41 l y failure Acute Rony n with respirator hypoxia y failure with hypoxia 08/05/2017 [facility] Acute on Problem 2017-08-05 Mem oria chronic 12:26:41 l diastolic Acute on Her osullivan (congestiv chronic e) heart diastolic failure (congestiv e) heart failure 08/05/2017 [facility] Patient's Problem 2017-08-05 Me moria noncomplia 12:26:41 l nce with Hugo other Patient's medical noncomplia treatment nce with and other regimen medical treatment and regimen 08/05/2017 [facility] Anemia in Problem 2017-08-05 Me moria chronic 12:26:41 l kidney Anemia Hugo disease in chronic kidney disease 08/05/2017 [facility] Other Problem 2017-08-05 Memor ia malaise 12:26:41 l Other [place] malaise 08/05/2017 [facility] Personal Problem 2017-08-05 Mem oria history of 12:26:41 l nicotine Personal Herm dave dependence history of nicotine dependence 08/05/2017 [facility] Follow up Diagnosis Active 2018-10-17 Memoria 16:39:56 l Follow [place] up Active 10/17/2018 [facility] ESRD (end Diagnosis Active 2018-11-28 Memoria stage 23:24:39 l renal ESRD [place] disease) (end stage renal disease) Active 9 [facility] Benign Problem Active 2018-06-15 Memor ia hypertensi 12:10:10 l on Benign [place] (disorder) hypertensi on (disorder) Active Problem 06/15/2018 Data migrated from [facility] on 08/17/14. [facility] Constipati Problem Active 2018-06-15 M emoria on 12:10:10 l (disorder) Rony n Constipati on (disorder) Active Problem 06/15/2018 Data migrated from [employer] on 08/17/14. [facility] Diabetes Problem Active 2018-06-15 Mem oria mellitus 12:10:10 l (disorder) Diabetes He rmann mellitus (disorder) Active Problem 06/15/2018 Data migrated from [employer] on 08/17/14. [facility] Hyperchole Problem Active 2018-06-15 M emoria sterolemia 12:10:10 l (disorder) Rony n Hyperchole sterolemia (disorder) Active Problem 06/15/2018 Data migrated from [employer] on 08/17/14. [facility] Impaired Problem Active 2018-06-15 Mem oria glucose 12:10:10 l tolerance Impaired Her osullivan (disorder) glucose tolerance (disorder) Active Problem 06/15/2018 Data migrated from [employer] on 08/17/14. [facility] HEART Diagnosis Active 2017-12-23 Mem oria FAILURE, 11:55:00 l UNSPECIFIE HEART Sandy nn D FAILURE, UNSPECIFIE D Active [facility] ACUTE Diagnosis Active 2017-05-03 Mem oria DIASTOLIC 21:59:00 l (CONGESTIV ACUTE Sandy nn E) HEART DIASTOLIC FAILU (CONGESTIV E) HEART FAILU Active [facility] Anemia, Problem 2017-2018-06-15 2018-06-15 Memoria unspecifie 04-19 12:10:10 12:10:10 l d Anemia, 06:06: [place] unspecifie 01 d 02/17/2018 06/15/2018 [facility] Allergies, Adverse Reactions, Alerts Allergy Allergy Status Severity Reaction(s) Onset Inactive Treating Comm ents Source Name Type Date Date Clinician Sulfamet Propensi Active 2018-[address] [facility] hoxazole ty to 04-18 [facility] - -Trimeth adverse 00:00: Medical oprim reaction 00 Center s Ciproflo Propensi Active 2018-[address] [facility] xacin ty to 04-18 [facility] - adverse 00:00: Medical reaction 00 Center s Penicill Propensi Active 2018-[address] [facility] ins ty to 04-18 [facility] - adverse 00:00: Medical reaction 00 Center s Gatiflox Propensi Active 2018-[address] [facility] St acin ty to 04-18 [facility] - adverse 00:00: Medical reaction 00 Center s Fexofena Fexofena Active Nausea 2018- Memori a dine Hcl dine Hcl and/or 2-26 l Vomiting 00:00: Ciproflo Ciproflo Active Nausea Memori a xacin xacin and/or 2-26 l (Bulk) (Bulk) Vomiting 00:00: Penicill Penicill Active Rash Memori a ins ins 2-26 l 00:00: Sulfa Sulfa Active Nausea 2018- Memoria (Sulfona (Sulfona and/or 2-26 l mide mide Vomiting 00:00: [place] Antibiot Antibiot 00 ics) ics) Fexofena Propensi Active Other (See Karlene - [...] Memori a ins<sup> ins<sup> l 1</sup> 1</sup> [place] diazepam diazepam Active Memori a <sup>2</ <sup>2</ l sup> sup> Hugo fexofena fexofena Active Memori a dine<sup dine<sup l >3</sup> >3</sup> Rony shah Tequin Tequin Active Memoria l Hugo DULoxeti DULoxeti Active Memori a ne<sup>5 ne<sup>5 l </sup> </sup> Hugo Social History Social Habit Start Date Stop Date Quantity Comments Source Sex Assigned At [facility] Alcohol intake 2015-09-30 2015-09-30 Current [facility] thodist 00:00:00 00:00:00 non-drinker of alcohol (finding) Smoking Status Start Date Stop Date Source Tobacco smoking status [facility] Migel Arias Social History 2017-11-25 22:03:08 2017-11-25 22:03:08 [facility] Medications Ordered Filled Start Stop Current Ordering Indication Dosage Frequency Signature Comments Components Source Medication Medication Date Date Medication? Clinician (SIG) Name Name acetaminoph 2018-03 2019- No 1{tbl} Take [address] en-codeine 04-22 tablet by Caroline es - (TYLENOL 00:00: 23:59 mouth Medical #3) 300-30 00 :00 every 4 Center mg per (four) tablet hours as needed for up to 10 days. Max Daily Amount: 6 tablets doxycycline 2018-03 2019- No 100mg Take [address] (MONODOX) 04-22 capsule [facility] - 100 MG 00:00: 23:59 (100 mg Medical capsule 00 :00 total) by Center mouth every 12 (twelve) hours for 7 days. acetaminoph 2018-03 Yes 500mg Take [address] en 1-29 mg by [facility] - (TYLENOL) 18:01: mouth Medical 500 MG 30 every 6 Center tablet (six) hours as needed for Pain. acetaminoph 2018-03 Yes 1{tbl} Take [address] en-codeine -29 tablet by Luke s - (TYLENOL 18:01: mouth Medical #3) 300-30 30 every 4 Center mg per (four) tablet hours as needed for Pain. atorvastati 2018-03 Yes 80mg QD Take [address] [facility] n (LIPITOR) 1-29 by mouth Luke s - 80 MG 18:01: daily. Medical tablet 30 Center NIFEdipine 2018-03 Yes 90mg Q.5D Take [address] (ADALAT CC) -29 by mouth 2 Grazyna kes - 90 MG 24 hr 18:01: (two) Medic al tablet 30 times Center daily. ramipril 2018-03 Yes 10mg QD Take [address] [facility] (ALTACE) 10 - by mouth Luke s - MG capsule 18:01: daily. Medic al 30 Center sertraline 2018-03 Yes 50mg QD Take [address] (ZOLOFT) 50 - by mouth Luke s - MG tablet 18:01: daily. Medica l 30 Center cholecalcif 2018-03 Yes 5000U QD Take 5,[address] [facility] [facility] sarahy, 1-29 Units by [facility] - vitamin D3, 18:01: mouth Medic al 1,000 unit 30 daily. Center capsule melatonin 3 2018-03 Yes 5mg Take [address] mg Tab 04-18 by mouth [facility] - tablet 18:01: every Medical 30 night as Center needed. aspirin 81 2018-03 Yes 81mg QD Take [address] MG EC 04-18 by mouth [facility] - tablet 18:01: daily. Medical 29 Center clopidogrel 2018-03 Yes 75mg QD Take [address] [facility] (PLAVIX) 75 04-18 by mouth Luke s - mg tablet 18:01: daily. Medica l 29 Center hydrALAZINE 2018-03 Yes 100mg Q.5D Take [address] (APRESOLINE 1-29 mg by [facility] - ) 100 MG 18:01: mouth 2 Medica l tablet 29 (two) Center times daily. isosorbide 2018-03 Yes 90mg QD Take [address] mononitrate -29 by mouth Luke s - (IMDUR) 30 18:01: daily. Medic al MG 24 hr 29 Center tablet doxazosin 2018-03 Yes 8mg Q.5D Take [address] [facility] (CARDURA) 8 -29 by mouth 2 Grazyna kes - MG tablet 18:01: (two) Medical 29 times Center daily. docusate 2018-03 Yes 100mg Q.5D Take [address] [facility] sodium 1-29 mg by [facility] - (COLACE) 18:01: mouth 2 Medica l 100 MG 29 (two) Center capsule times daily. calcium 2018-03 Yes 2{tbl} QD Take [address] carbonate 1-29 tablets by Luke s - (TUMS) 500 18:01: mouth Medica l mg chewable 29 daily. Center tablet cyanocobala 2018-03 Yes 1000ug QD Take 1,[address] [facility] min, 1-29 mcg by [facility] - vitamin 18:01: mouth Medical B-12, 1000 29 daily. Center MCG tablet aspirin 81 Yes Take 81 mg M emoria mg chewable 9-10 by mouth l tablet 23:24: daily. Hugo 39 clopidogrel Yes Take 75 mg Memoria (PLAVIX) 75 9-10 by mouth l mg tablet 23:24: daily. Rony n 39 hydralAZINE 2018- Yes Take 100 Me moria 100 mg 9-10 mg by l tablet 23:24: mouth [place] 39 every 6 (six) hours. isosorbide Yes Take 90 mg M emoria mononitrate 9-10 by mouth. l 30 mg 24 hr 23:24: Rony n tablet 39 NIFEdipine Yes Take 90 mg M emoria XL 90 mg 24 9-10 by mouth 2 l hr tablet 23:24: (two) Hugo 39 times daily. cloniDINE 2018- Yes Take 0.3 Migel lalita 0.3 mg 9-10 mg by l tablet 23:24: mouth 2 Hugo 39 (two) times daily. doxazosin 8 Yes Take 8 mg M emoria mg tablet 9-10 by mouth 2 l 23:24: (two) [place] 39 times daily. docusate Yes Take 100 Memor ia 100 mg 9-10 mg by l capsule 23:24: mouth 2 [place] 39 (two) times daily. calcium Yes Take 1,000 Migel lalita carbonate 9-10 mg by l (TUMS ORAL) 23:24: mouth 2 Her osullivan 39 (two) times daily. vitamin 2018- Yes Take 1,000 Migel lalita B-12 9-10 mcg by l (VITAMIN 23:24: mouth [place] B-12) 1,000 39 daily. mcg tablet atorvastati Yes Take 80 mg Memoria n (LIPITOR) 9-10 by mouth l 80 mg 23:24: at Hugo tablet 39 bedtime. ramipril 10 Yes Take 10 mg Memoria mg capsule 9-10 by mouth l 23:24: daily. [place] 39 SERTraline Yes Take 50 mg M emoria 50 mg 9-10 by mouth l tablet 23:24: daily. Hugo 39 folic 2018- Yes Take by Memoria acid/vit B 9-10 mouth. l complex and 23:24: Rony shah C 39 (DIALYVITE 800 ORAL) Melatonin 5 Yes Take by Me moria mg Cap 9-10 mouth. l 23:24: [place] 39 Cholecalcif Yes Take 5,000 Memoria sarahy, 9-10 Units by l Vitamin D3, 23:24: mouth Sandy nn (VITAMIN 39 daily. D3) 5,000 unit tablet CEPHALEXIN Yes Take 500 Mem oria ORAL 9-10 mg by l 23:24: mouth 3 [place] 39 (three) times daily. Indication s: UTI for 10 days. On 08/28 day traMADol 50 Yes Take 1 Migel lalita mg tablet 7-23 tablet by l 00:00: mouth Hugo 00 every 6 (six) hours as needed for Pain (scale 7-10). Hydralazine No Notes: Migel lalita Hydrochlori 11-27 (Same as: l de 100 MG 05:00: Apresoline He rmann Oral Tablet 00 ) May interfere w/enteral feedings Take With Food Hydralazine Yes 100 mg = 1 Memoria Hydrochlori 11-27 tab, PO, l de 100 MG 00:11: Q8H, # 90 Her osullivan Oral Tablet 00 tab, 2 Refill(s), Pharmacy: [facility] #[id number] Doxazosin No Notes: Memori a 11-26 (Same as: l 14:00: Cardura) Clonidine No Notes: Memori a Hydrochlori 11-26 (Same As: l de 0.3 MG 14:00: Catapres) Her osullivan Oral Tablet 00 isosorbide No Notes: Memor ia mononitrate 11-26 (Same l extended 14:00: as:Imdur) Herm dave release "Do Not Crush" Take on empty stomach/ full glass of water. Do not crush Plavix No Notes: Memoria 11-26 (Same As: l 14:00: Plavix) Aspirin No Notes: Do Memor ia 11-26 not crush l 14:00: or chew. (Same As: Ecotrin) Epogen No Notes: Memoria 11-26 (Same as: l 04:00: Procrit) epoetin ana rosa 3000 unit/1 ml VL. For dialysis use only WASTE: F/P - Red; E -Red MEDICATION WASTE Product Size: 3000 unit Product Wasted: ___ unit epoetin No Notes: Memoria ana rosa 11-26 (Same as: l 04:00: Procrit) epoetin ana rosa 75748 unit/1 ml VL. For dialysis use only. (Procrit) WASTE: F/P - Red; E -Red MEDICATION WASTE Product Size: 84754 unit Product Wasted: ___ unit Clonidine Yes 0.3 mg, Memor ia 11-26 PO, BID, 0 l 03:33: Refill(s) Acetaminoph Yes 1 tab, PO, Memoria en 300 MG / 11-26 Q6H, PRN l Codeine 03:33: Pain, # 28 Herm dave Phosphate 00 tab, 0 30 MG Oral Refill(s) Tablet [Tylenol with Codeine #3] ramipril 10 Yes See Memori a mg oral 11-26 Instructio l capsule 03:33: ns, 1 cap Sandy nn 00 PO Daily 30 day, 0 Refill(s) Clonidine No Notes: Memori a 11-26 (Same As: l 02:35: Catapres) Hydralazine No Notes: Migel lalita Hydrochlori 11-26 (Same as: l de 100 MG 02:00: Apresoline He rmann Oral Tablet ) May interfere w/enteral feedings Take With Food NIFEdipine No Notes: Memor ia 90 mg oral 11-26 (Same as: l tablet, 01:35: Adalat CC, Herm dave extended Procardia release XL) Give on empty stomach. Take 1 hour before or 2 hours after meal; "Avoid grapefruit and grapefruit juice". Do not crush Hydralazine No 5 mg, Memor ia 11-26 Route: l 00:59: IVP, ONCE, Dosing Weight 65.909, kg, Start date: 11/25/17 19:59:00 CDT, Stop date: 11/25/17 19:59:00 CDT Lipitor Yes 80 mg, PO, Migel lalita 11-25 Daily, at l 22:16: bedtime, 0 Hugo 00 Refill(s) Sodium No 1,000 mL, Memori a Chloride 11-25 1,000 l 0.9% 21:55: ml/hr, [place] (Bolus) IV 00 Infuse Over: 1 hr, Route: IV, 1,000, Drug form: INJ, PRN, Priority: STAT, Dosing Weight 68.5 kg, Start date: 11/25/17 16:55:00 CDT, Duration: 30 day, Stop date: 12/25/17 16:54:00 CDT, PRN Dialysis Sodium No 250 mL, Memoria Chloride 11-25 Rate: To l 0.9% 21:49: prime line Hugo (titrate) 00 and flush 250 mL remaining blood products., Dosing Weight 68.5, kg, Route: IV, Total Volume: 250, Start Date: 11/25/17 16:49:00 CDT, Duration: 30 day, Stop date: 12/25/17 16:48:00 CDT, Replace Every: 24 hr Hydralazine No Notes: Migel lalita 11-25 (Same as: l 19:56: Apresoline [place] ) Push over 5 minutes Acetaminoph No Notes: Do M emoria en 11-25 not exceed l 19:54: 4 gm/day. [place] (Same as: Tylenol) Acetaminoph No Notes: Migel lalita en 325 MG / 11-25 (Same as: l Hydrocodone 19:54: [place] Sandy nn Bitartrate 00 325/5) Do 5 MG Oral not exceed Tablet 4gm/day of acetaminop hen. remove No 1 patch, Memoria patch 05-06 Route: l 10:59: TOP, Drug [place] form: ERFILM, Q7D, Start date: 05/06/17 4:59:00 YOUTH SPECIALIST, Duration: 30 day, Stop date: 06/03/17 9:00:00 CDT Clonidine Yes 0.2 mg = 2 Me moria Hydrochlori 2-09 tab, PO, l de 0.1 MG 23:26: BID, # 30 Her osullivan Oral Tablet 00 tab, 0 Refill(s), Pharmacy: [facility] #[id number] losartan 50 Yes 100 mg = 2 Memoria mg oral 2-09 tab, PO, l tablet 23:26: Q12H, # 30 Sandy nn 00 tab, 0 Refill(s), Pharmacy: [facility] #[id number] Hydralazine Yes 200 mg = 2 Memoria Hydrochlori 2-09 tab, PO, l de 100 MG 23:26: TID, 0 Rony n Oral Tablet 00 Refill(s) Clonidine No Notes: Memori a Hydrochlori 2-09 (Same As: l de 0.1 MG 23:00: Catapres) Her osullivan Oral Tablet 00 normal No 1,000 mL, Memori a saline 0.9% 04-29 Rate: 75 l IV 1,000 mL 16:55: ml/hr, Herm dave 00 Infuse over: 13.3 hr, Route: IV, Dosing Weight 68.5 kg, Total Volume: 1,000, Start date: 04/29/17 10:55:00 YOUTH SPECIALIST, Duration: 30 day, Stop date: 05/29/17 10:54:00 CDT, 1.79, m2 Hydralazine No 50 mg, 1 Me moria Hydrochlori 2-09 tab, l de 50 MG 15:00: Route: PO, Her osullivan Oral Tablet 00 Drug form: TAB, TID, Dosing Weight 68.5, kg, Start date: 04/29/17 9:00:00 YOUTH SPECIALIST, Duration: 30 day, Stop date: 05/28/17 17:00:00 YOUTH SPECIALIST 168 HR No Notes: Memoria Clonidine 2-09 Patch l 0.07737 11:00: delivers Rony n MG/HR 00 0.1 mg/24 Transdermal hours; Patch Patch is applied weekly. "Remove old patch before applicatio n of new patch" (Same As: Catapres-T TS-1) Kayexalate No Notes: Memor ia 2-08 (sodium l 18:50: polystyren Hugo 00 e sulfonate 15 gm/60 ml TRINITY) Shake well before use. (Same as: Kayexalate , SPS) sodium No 2,000 mL, Memori a chloride 2-08 0 ml/hr, l 0.9% 17:40: Infuse [place] (Priming 00 Over: 0 and hr, Route: Maintenance IV, 2,000, ) Drug form: INJ, PRN, Dosing Weight 68.5 kg, Start date: 04/28/17 11:40:00 YOUTH SPECIALIST, Duration: 24 hr, Stop date: 04/29/17 11:39:00 YOUTH SPECIALIST, For Use by Dialysis nurse ONLY, PRN Dialysis Hydralazine No Notes: Migel lalita 2-07 (Same as: l 09:48: Apresoline ) Push over 5 minutes Clonidine No Notes: Memori a 2-06 (Same As: l 15:00: Catapres) Losartan No Notes: Memoria 2-06 (Same as: l 03:00: Cozaar) NIFEdipine No Notes: Memor ia 90 mg oral 04-26 (Same as: l tablet, 03:00: Adalat [place] extended 00 CC,Procard release ia XL) "Do Not Crush" "Avoid grapefruit and grapefruit juice" Melatonin No Notes: Memori a 2-06 (Same as: l 00:57: Melatonin) Melatonin No 2.5 mg, 1 Mem oria 2.5 mg oral 205 cap, l capsule 23:50: Route: PO, Herm Dosing Weight 68.5, kg, Bedtime, PRN as needed for insomnia, Start date: 04/25/17 17:50:00 YOUTH SPECIALIST, Duration: 30 day, Stop date: 05/25/17 17:49:00 YOUTH SPECIALIST heparin No 10,000 Memoria 2-05 unit, 10 l 13:45: mL, Route: [place] 00 DIALYSIS, Drug form: INJ, ONCALL, Dosing Weight 68.5, kg, PRN Dialysis, Start date: 04/25/17 7:45:00 YOUTH SPECIALIST, Duration: 1 doses or times, Stop date: Limited # of times albumin No Notes: Lot Migel lalita human 25% 2-05 #: l intravenous 13:44: [place] solution 00 ___ Mfg: (Same as: Plasbumin- 25) "blood product derivative " WASTE: F/P - Red; E -Red MEDICATION WASTE Product Size: 25 gm Product Wasted: ___ gm normal No 1,000 mL, Memori a saline 0.9% 2-05 Rate: 1 l IV 1,000 mL 13:43: ml/hr, Herm dave 00 Infuse over: 1000 hr, Route: DIALYSIS, Dosing Weight 68.5 kg, Total Volume: 1,000, Priority: NOW, Start date: 04/25/17 7:43:00 YOUTH SPECIALIST, Duration: 30 day, Stop date: 05/25/17 7:42:00 YOUTH SPECIALIST, 1.79, m2 normal No 1,000 mL, Memori a saline 0.9% 2-05 Rate: 1 l IV 1,000 mL 13:42: ml/hr, Herm dave 00 Infuse over: 1000 hr, Route: DIALYSIS, Dosing Weight 68.5 kg, Total Volume: 1,000, Priority: NOW, Start date: 04/25/17 7:42:00 YOUTH SPECIALIST, Duration: 30 day, Stop date: 05/25/17 7:41:00 YOUTH SPECIALIST, 1.79, m2 Isosorbide No Notes: Memor ia Dinitrate 2-03 (Same l 15:00: as:Isordil ) Take on empty stomach/ full glass of water Epogen No Notes: Memoria 2-02 (Same as: l 23:00: Procrit) epoetin ana rosa 14034 unit/1 ml VL. For dialysis use only. (Procrit) WASTE: F/P - Red; E -Red MEDICATION WASTE Product Size: [id number] unit Product Wasted: ___ unit Sertraline No Notes: Memor ia 2-02 (Same as: l 23:00: Zoloft) Doxazosin No Notes: Memori a 2-02 (Same as: l 23:00: Cardura) Docusate No Notes: Memoria Sodium 100 2-02 (Same as: l MG Oral 23:00: Colace) Hugo Capsule 00 (Do Not Crush) Vitamin D3 No Notes: Memor ia 1000 intl 2-02 Same as : l units oral 23:00: Vitamin D3 H ermann tablet 00 Tums No Notes: Memoria 2-02 (Same As: l 23:00: Tums) Hugo Calcium Carbonate 500 mg = 200 mg elemental calcium Dose = mg calcium carbonate ( mg elemental calcium) Hydralazine No Notes: Migel lalita Hydrochlori 2-02 (Same as: l de 100 MG 19:00: Apresoline He rmann Oral Tablet ) May interfere w/enteral feedings Take With Food heparin No Notes: Memoria 2-02 porcine l 15:00: heparin Hugo Plavix No Notes: Memoria 2-02 (Same As: l 15:00: Plavix) [place] Aspirin No Notes: Do Memor ia 2-02 not crush l 15:00: or chew. [place] (Same As: Ecotrin) Hydralazine No Notes: Migel lalita 2-02 (Same as: l 15:00: Apresoline Hugo ) May interfere w/enteral feedings Take With Food NIFEdipine Yes 90 mg = 1 Me moria 90 mg oral 2-02 tab, PO, l tablet, 10:02: QAM & PM, Sandy nn extended 00 0 release Refill(s) melatonin 5 Yes 5 mg = 1 Me moria mg oral 2-02 tab, PO, l tablet 10:02: Bedtime, Hugo 00 PRN for insomnia, # 60 tab, 0 Refill(s) Ascorbic Yes 1 tab, PO, Mem oria Acid 60 MG 2-02 QPM, 0 l / Biotin 10:02: Refill(s) Herm dave 0.3 MG / 00 Folic Acid 0.8 MG / mecobalamin 0.006 MG / Niacinamide 20 MG / pantothenat e 10 MG / pyridoxine 10 MG / Riboflavin 1.7 MG / Thiamine 1.5 MG Oral Tablet [Dialyvite 800] sertraline Yes 50 mg = 1 Me moria 50 mg oral 2-02 tab, PO, l tablet 10:02: QPM, 0 Hugo 00 Refill(s) doxazosin 4 Yes 4 mg = 1 Me moria mg oral 2-02 tab, PO, l tablet 10:02: QPM, 0 [place] 00 Refill(s) losartan 50 No 50 mg = 1 M emoria mg oral 2-02 tab, PO, l tablet 10:02: QAM & PM, Rony n 00 0 Refill(s) Tums Yes 1,000 mg, Memoria 2-02 CHEW, QAM l 10:02: & PM, 0 [place] 00 Refill(s) Docusate Yes 100 mg = 1 Mem oria Sodium 100 2-02 cap, PO, l MG Oral 10:02: QAM & PM, Sandy nn Capsule 00 0 Refill(s) Vitamin D3 Yes 5,000 Memori a 5000 intl 2 IntlUnit = l units oral 10:02: 1 cap, PO, H ermann capsule 00 QPM, # 30 cap, 1 Refill(s) Hydralazine No Notes: Migel lalita - (Same as: l 09:57: Apresoline ) Push over 5 minutes Labetalol No 20 mg, 4 Migel lalita 2- mL, Route: l 09:57: IVP, Drug form: INJ, ONCE, Dosing Weight 68.5, kg, Start date: 04/22/17 3:57:00 YOUTH SPECIALIST, Stop date: 04/22/17 3:57:00 YOUTH SPECIALIST potassium No Notes: Memori a chloride 20 - (Same as: l mEq oral 09:57: K-Dur 20) Herm dave tablet, "Do Not extended Crush" release With food and full glass of water Magnesium No Notes: Memori a Sulfate 04-22 WASTE: F/P l 09:57: - Sink; E - Municipal Trash Bin Isosorbide Yes 90 mg, PO, M emoria Dinitrate 2-02 QAM, 0 l 09:48: Refill(s) Hugo 00 Hydralazine No 100 mg = 1 Memoria Hydrochlori 2-02 tab, PO, l de 100 MG 09:48: TID, 0 Rony n Oral Tablet 00 Refill(s) clopidogrel Yes 75 mg = 1 M emoria 75 MG Oral 2-02 tab, PO, l Tablet 09:48: QAM, 0 [Plavix] Refill(s) Aspirin Yes 81 mg, PO, Migel lalita 2-02 QAM, 0 l 09:48: Refill(s) Hydralazine No Notes: Migel lalita 2-02 (Same as: l 07:46: Apresoline ) Push over 5 minutes Insulin No Notes: Memoria Lispro 2- Roll in l 07:43: palms of hands gently; Do not shake `vigorousl y. (Same as: Humalog ) "Single Patient Use Only " WASTE: F/P - Black; E - [employer] Trash Bin Stable for 28 days at room temperatur e. Expires in days from ____Date Dextrose No 12.5 gm, Memor ia 50% Syringe 04-22 25 mL, l 07:43: Route: IVP, Drug Form: INJ, Dosing Weight 68.5, kg, PRN, PRN Blood Glucose Results, Start date: 04/22/17 1:43:00 YOUTH SPECIALIST, Duration: 30 day, Stop date: 05/22/17 1:42:00 YOUTH SPECIALIST Glucagon No 1 mg, Memoria 2- Route: IM, l 07:43: Drug form: PDR/INJ, PRN, Dosing Weight 68.5, kg, PRN Blood Glucose Results, Start date: 04/22/17 1:43:00 YOUTH SPECIALIST, Duration: 30 day, Stop date: 05/22/17 1:42:00 YOUTH SPECIALIST NIFEdipine No Notes: Memor ia 60 mg oral 04-22 (Same as: l tablet, 07:40: Adalat CC, Procardia release XL) Give on empty stomach. Take 1 hour before or 2 hours after meal; "Avoid grapefruit and grapefruit juice". Do not crush Losartan No Notes: Memoria 2-02 (Same as: l 07:40: Cozaar) Acetaminoph No Notes: Do M emoria en 2- not exceed l 07:26: 4 gm/day. [place] 00 (Same as: Tylenol) aspirin 2016-0 Yes 81mg QD Take 81 mg [place] (ECOTRIN) 7-07 by mouth Method i 81 MG 15:36: daily. st enteric 05 coated tablet atorvastati 2016-0 Yes 80mg QD Take 80 mg [place] n (LIPITOR) 7-07 by mouth Meth evi 80 MG 15:36: daily. st tablet 05 carvedilol 2016-0 Yes 25mg Q.5D Take 25 mg [place] (COREG) 25 7-07 by mouth 2 Met hodi MG tablet 15:36: (two) st 05 times a day with meals. clopidogrel 2016-0 Yes 75mg QD Take 75 mg [place] (PLAVIX) 75 7-07 by mouth Meth evi mg tablet 15:36: daily. st 05 docusate 2016-0 Yes 100mg Q.5D Take 100 [place] sodium 7-07 mg by Methodi (COLACE) 15:36: mouth 2 st 100 MG 05 (two) capsule times a day. hydrALAZINE 2016-0 Yes 100mg Q.[id number] Take 100 [place] (APRESOLINE 7-07 [id number] mg by Ravi chavis ) 100 MG [...] MG 15:36: daily. st tablet 05 megestrol 2016-0 Yes 40mg QD Take 40 mg [place] (MEGACE) 40 7-07 by mouth Meth evi MG tablet 15:36: daily. st 05 FOLIC 2016-0 Yes 1{tbl} QD Take 1 [place] ACID/VIT 7-07 tablet by Method i BCOMP,C 15:36: mouth st (NEPHRO-VIT 05 daily. E ORAL) NIFEdipine 2016-0 Yes 90mg Q.5D Take 90 mg [place] XL 7-07 by mouth 2 Methodi (PROCARDIA 15:36: (two) st XL) 90 MG 05 times a 24 hr day. tablet sertraline 2016-0 Yes 50mg QD Take 50 mg [place] (ZOLOFT) 50 7-07 by mouth Meth evi MG tablet 15:36: daily. st 05 Vital Signs Vital Name Observation Time Observation Value Comments Source Systolic blood 2019-02-19 11:41:00 145 mm[Hg] [facility] Diastolic blood 2019-02-19 11:41:00 67 mm[Hg] [facility] Heart rate 2019-02-19 11:41:00 79 /min [facility] Body temperature 2019-02-19 11:41:00 36.94 Jeanna [facility] Respiratory rate 2019-02-19 11:41:00 20 /min [facility] Oxygen saturation in 2019-02-19 11:41:00 92 /min [facility] Arterial blood by Medical Ce nter Pulse oximetry Body weight Measured 2019-02-19 10:57:00 66.8 kg [facility] BMI 2019-02-19 10:57:00 24.51 kg/m2 [facility] Body height 2019-02-16 16:00:00 165.1 cm [facility] Systolic (mm Hg) 2018-11-28 16:24:00 Migel rial Hugo Diastolic (mm Hg) 2018-11-28 16:24:00 Mem orial [place] Heart Rate 2018-11-28 16:24:00 [facility] Temperature Oral (F) 2018-11-28 16:20:00 36.83 Jeanna [facility] Resp[facility] Rate 2018-11-28 16:20:00 Memori al [place] Height 2018-11-28 16:20:00 167.6 cm [facility] Weight 2018-11-28 16:20:00 [facility] Systolic (mm Hg) 2018-10-17 15:34:00 Migel rial Hugo Diastolic (mm Hg) 2018-10-17 15:34:00 Mem orial [place] Heart Rate 2018-10-17 15:34:00 [facility] [place] Temperature Oral (F) 2018-10-17 15:34:00 37 Jeanna [facility] Respitory Rate 2018-10-17 15:34:00 Memori al [place] Height 2018-10-17 15:34:00 165.1 cm [facility] Weight 2018-10-17 15:34:00 [facility] [place] Systolic (mm Hg) 2017-11-27 00:00:00 Migel rial Hugo Diastolic (mm Hg) 2017-11-27 00:00:00 Mem orial [place] Respitory Rate 2017-11-27 00:00:00 Memori al [place] Respitory Rate 2017-11-26 23:00:00 Memori al [place] Systolic (mm Hg) 2017-11-26 23:00:00 Migel rial [place] Diastolic (mm Hg) 2017-11-26 23:00:00 Mem orial [place] Systolic (mm Hg) 2017-11-26 22:00:00 Migel rial [place] Diastolic (mm Hg) 2017-11-26 22:00:00 Mem orial [place] Respitory Rate 2017-11-26 22:00:00 Memori al [place] Temperature Oral (F) 2017-11-26 17:00:00 98.0 F [facility] [place] Temperature Oral (F) 2017-11-26 12:30:00 97.6 F [facility] [place] Temperature Oral (F) 2017-11-26 10:00:00 98.5 F [facility] Heart Rate 2017-11-26 02:22:00 [facility] Heart Rate 2017-11-25 23:45:00 [facility] BMI Calculated 2017-11-25 21:59:00 Memori al [place] Weight 2017-11-25 21:59:00 [facility] [place] Height 2017-11-25 21:59:00 165.1 cm [facility] [place] Heart Rate 2017-11-25 19:30:00 [facility] [place] Heart Rate 2017-04-29 22:48:00 [facility] [place] Systolic (mm Hg) 2017-04-29 22:48:00 Migel rial Hugo Diastolic (mm Hg) 2017-04-29 22:48:00 Mem orial [place] Systolic (mm Hg) 2017-04-29 21:18:00 Migel rial [place] Diastolic (mm Hg) 2017-04-29 21:18:00 Mem orial [place] Respitory Rate 2017-04-29 21:18:00 Memori al [place] Heart Rate 2017-04-29 21:18:00 [facility] [place] Temperature Oral (F) 2017-04-29 21:18:00 98.4 F [facility] Temperature Oral (F) 2017-04-29 17:26:00 97.8 F [facility] [place] Heart Rate 2017-04-29 17:26:00 [facility] Respitory Rate 2017-04-29 17:26:00 Memori al [place] Systolic (mm Hg) 2017-04-29 17:26:00 Migel rial Hugo Diastolic (mm Hg) 2017-04-29 17:26:00 Mem orial Hugo Respitory Rate 2017-04-29 14:33:00 Memori al [place] Temperature Oral (F) 2017-04-29 13:39:00 98.4 F [facility] BMI Calculated 2017-04-22 06:08:00 Memori al [place] Weight 2017-04-22 06:08:00 [facility] [place] Height 2017-04-22 06:08:00 165.1 cm [facility] [place] BMI Calculated 2017-04-22 05:02:00 Memori al [place] Weight 2017-04-22 05:02:00 [facility] Height 2017-04-22 05:02:00 165.1 cm [facility] [place] Height 2017-04-22 05:01:00 165.1 cm [facility] Procedures Procedure Date / Time Performing Clinician Source Performed RHYTHM STRIP - SCAN 2019-02-22 08:50:24 ProviderGi [facility] POCT-GLUCOSE METER 2019-02-19 11:58:00 SantaFabiola simmons [facility] HEMODIALYSIS INPATIENT 2019-02-19 07:05:53 Al AttCarmine garcia [facility] CBC W/PLT COUNT & AUTO 2019-02-19 04:24:[address] [facility] - DIFFERENTIAL [facility] POCT-GLUCOSE METER 2019-02-18 20:49:00 Lisa Choi [facility] POCT-GLUCOSE METER 2019-02-18 17:11:00 Lisa Choi [facility] POCT-GLUCOSE METER 2019-02-18 09:01:00 Debby Velez [facility] COMPREHENSIVE METABOLIC 2019-02-18 04:57:00 Boo Alexander [facility] CBC W/PLT COUNT & AUTO 2019-02-18 04:57:00 Miguel Flores [facility] DIFFERENTIAL [facility] POCT-GLUCOSE METER 2019-02-17 22:41:00 Debby Velez [facility] ECHOCARDIOGRAM REPORT - 2019-02-17 21:21:07 Provider, Default CH I [facility] SCAN Scanning [facility] POCT-GLUCOSE METER 2019-02-17 17:58:00 Debby Velez [facility] MR BRAIN WITHOUT IV 2019-02-17 15:41:00 Debby Velez [facility] CONTRAST [facility] WOUND CULTURE + GRAM STAIN 2019-02-17 13:10:00 Yaneth Fernandes [facility] POCT-GLUCOSE METER 2019-02-17 11:51:00 Debby Velez [facility] URINE CULTURE 2019-02-17 11:30:00 Boo Alexander [facility] URINALYSIS W/ REFLEX URINE 2019-02-17 11:30:00 Boo shah [facility] - CULTURE [facility] DRUG SCREEN, URINE, 2019-02-17 11:30:00 Boo Alexander [facility] VITAMIN B12 AND FOLATE 2019-02-17 07:34:00 Debby Velez [facility] HEMOGLOBIN A1C 2019-02-17 07:34:00 Debby Velez [facility] LIPID PANEL 2019-02-17 04:52:00 Boo Alexander [facility] COMPREHENSIVE METABOLIC 2019-02-17 04:52:00 Boo Alexander [facility] CBC W/PLT COUNT & AUTO 2019-02-17 04:52:[address] [facility] - DIFFERENTIAL [facility] POCT-GLUCOSE METER 2019-02-17 00:10:00 Debby Velez [facility] HEMODIALYSIS INPATIENT 2019-02-16 21:41:55 KonradXuan walsh Annmariebrittanideborah [facility] 2D ECHO W/ DOPPLER 2019-02-16 19:06:04 Boo Alexander [facility] (CW/PW/COLOR) [facility] COMPREHENSIVE METABOLIC 2019-02-16 18:41:00 Boo Alexander [facility] PANEL [facility] PROTHROMBIN TIME/INR 2019-02-16 18:41[facility]00 [facility] 2019-02-16 18:41:00 Boo Alexander [facility] HEMOGLOBIN A1C 2019-02-16 18:41:00 Boo Alexander [facility] TSH 2019-02-16 18:41:00 [facility] 2019-[facility]-16 18:41:00 [facility] VIT[facility] B12 2019-02-16 18:41:00 Boo Alexander [facility] HEPATITIS B SURFACE 2019-02-16 18:41:00 Shan Long [facility] HEPATITIS C ANTIBODY 2019-02-16 18:41:00 Debby Velez [facility] CBC W/PLT COUNT & AUTO 2019-02-16 18:41:[address] [facility] - DIFFERENTIAL [facility] XR CHEST 1 VIEW 2019-02-16 17:21:00 Boo Alexander [facility] - PORTABLE/BEDSIDE [facility] Bilateral extraction of [facility] [place] cataracts Caesarean section [facility] nn Carotid angiogram Gideon anderson Cholecystectomy Gideon Arias Provision of stents or Gideon Arias bite blocks<sup>1</sup> Plan of Care Planned Activity Planned Date Details Comments Source Future Scheduled 2019-10-20 INFLUENZA VACCINE [place] [facility] 00:00:00 [code = INFLUENZA VACCINE] Future Scheduled 2018-11-19 Plan of Care [code = Mem orial [place] Test 00:00:00 08951-1] Future Scheduled 2018-10-17 Plan of Care [code = Mem orial [place] Test 16:07:18 60921-5] Future Scheduled 1995-09-27 65+ PNEUMOCOCCAL [place] [facility] 00:00:00 VACCINE (1 of 2 - PCV13) [code = 65+ PNEUMOCOCCAL VACCINE (1 of 2 - PCV13)] Future Scheduled 1995-09-27 Plan of Care [code = Mem orial [place] Test 00:00:00 87398-2] Future Scheduled 1980 SHINGLES VACCINES (#1) [place] [facility] 00:00:00 [code = SHINGLES VACCINES (#1)] Future Scheduled 1980 Plan of Care [code = Mem orial [place] Test 00:00:00 01494-6] Future Scheduled 1949 Plan of Care [code = Mem orial [place] Test 00:00:00 42504-2] Future Scheduled 1940 DIABETIC FOOT EXAM [place] [facility] 00:00:00 [code = DIABETIC FOOT EXAM] Future Scheduled 1940 URINE MICROALBUMIN [place] [facility] 00:00:00 [code = URINE MICROALBUMIN] Future Scheduled 1930 DIABETIC RETINAL EYE [facility] 00:00:00 EXAM [code = DIABETIC RETINAL EYE EXAM] Encounters Start End Encounter Admission Attending Care Care Encounter Source Date/Time Date/Time Type Type Clinicians Facility Department ID 2018-11-28 2018-11-28 KANG Narayanan [id number] 11:03:56 11:42:17 Visit Silvana Rao [id number] Maria Elena [id number] [place] [id number] [address] 2018-11-28 2018-11-28 Office KANG Millan [id number] 11:03:56 11:42:17 Visit Silvana Rao [id number] [place] 4.2.7.2.686 Professio [id number] [address] 2018-11-28 2018-11-28 [facility] [id number] 11:03:56 11:42:17 Visit Silvana Rao [id number] [place] 4.2.7.2.686 Professio [id number] [address] 2018-11-28 2018-11-28 [facility] [id number] 00:00:00 00:00:00 (Out) Silvana Rao [id number] [place] 4.2.7.2.686 Professio [id number] [address] 2018-10-17 2018-10-17 [facility] [id number] 10:18:44 11:07:18 Visit Silvana Rao [id number] [place] 4.2.7.2.686 Professio [id number] [address] 2018-10-17 2018-10-17 [facility] [id number] 10:18:44 11:07:18 Visit Silvana Rao [id number] [place] 4.2.7.2.686 Professio [id number] [address] 2017-11-25 2017-11-26 Outpatient Robert, [facility] [id number] 14:33:00 20:17:00 Peter 50 2017-04-21 2017-04-29 Outpatient Hamid, PL PL [id number] 22:59:00 19:15:00 Gregg 32 Results Test Description Test Time Test Comments Results Result Comments Source Wound culture + gram stain 2019-02-19 17:15:00 Test Item Value Reference Range Interpretation Comme nts Result (test code = 6463-4) No growth Gram Stain Result (test code = 1123) No organisms seen [facility] [id number] 17:15:00 Test Item Value Reference Range Interpretation Comments CULTURE (BEAKER) (test code No growth = 1095) GRAM STAIN RESULT (BEAKER) <1+ WBCs (test code = 1123) GRAM STAIN RESULT (BEAKER) No organisms seen (test code = 81270) POC-Glucose [id number] 12:10:00 Test Item Value Reference Range Interpretation Comments POC-Glucose Meter (test 77 mg/dL 70-110 : TE STED AT [facility] code = 1538) [address] [facility], [address]: [employer]/Techni dax ID = [id number] for Joseph Berrios redcollins Lab Interpretation (test Normal code = 83534-9) [facility] [id number] 12:10:00 Test Item Value Reference Range Interpretation Comments POC-GLUCOSE METER 77 mg/dL 70-110 : TESTED A T [facility] 6720 (BEAKER) (test code [facility], = 1538) [address]: [employer] Dock/Techni dax ID = [id number] for Erickson Jacobo CBC with platelet count + automated [id number] 05:11:00 Test Item Value Reference Range Interpretation Comments WBC (test code = 6690-2) 7.5 3.5- 10.5 K/L RBC (test code = 789-8) 2.47 3.93- 5.22 M/L L MCHC (test code = 786-4) 30.5 32.2- 35.5 GM/DL L Hematocrit (test code = 4544-3) 24.6 % 34.1-44.9 L MCV (test code = 787-2) 99.6 fL 79.4-94.8 H MCH (test code = 785-6) 30.4 pg 25.6-32.2 RDW (test code = 788-0) 15.3 % 11.7-14.4 H Platelets (test code = 777-3) 183 150- 450 K/CU MM MPV (test code = 23497-6) 9.6 fL 9.4-12.3 nRBC (test code = 413) 0 0- 0 /100 WBC % Neutros (test code = 429) 76 % % Lymphs (test code = 430) 15 % % Monos (test code = 431) 5 % % Eos (test code = 432) 4 % % Baso (test code = 437) 0 % # Neutros (test code = 670) 5.70 1.56- 6.13 K/L # Lymphs (test code = 414) 1.11 1.18- 3.74 K/L L # Monos (test code = 415) 0.39 0.24- 0.36 K/L H # Eos (test code = 416) 0.28 0.04- 0.36 K/L # Baso (test code = 417) 0.02 0.01- 0.08 K/L Immature Granulocytes-Relative 0 % 0-1 (test code = 2801) Lab Interpretation (test code = Abnormal 82357-1) [facility] W/PLT COUNT & AUTO [id number] 05:11:00 Test Item Value Reference Range Interpretation [...] PERCENT (BEAKER) (test code = 2801) POCT-GLUCOSE [id number] 21:01:00 Test Item Value Reference Range Interpretation Comments POC-GLUCOSE METER 105 mg/dL 70-110 : TESTED A T [facility] 6720 (BEAKER) (test code = [facility], 153) [address]: [employer] Dock/Techni dax ID = [id number] for VICKIE KORY BILL POCT-GLUCOSE [id number] 21:00:00 Test Item Value Reference Range Interpretation Comments POC-GLUCOSE METER 138 mg/dL 70-110 H : TESTED A T [facility] 6720 (BEAKER) (test code = [facility] [email or web address] [facility], 1538) [address]: [employer]/Techni dax ID = [id number] for RYAN SANCHEZ, JENNIFER Urine [id number] 12:50:00 Test Item Value Reference Range Interpretation Comments Result (test code = 40-49,000 col/mL skin 6463-4) rena [facility] [id number] 09:13:00 Test Item Value Reference Range Interpretation Comments POC-GLUCOSE METER 77 mg/dL 70-110 : TESTED A T [facility] 6720 (BEAKER) (test code = [facility], 153) [address]: [employer]/Techni dax ID = [id number] for FELTON KISER Comprehensive metabolic [id number] 06:33:00 Test Item Value Reference Range Interpretation Comments Protein, Total (test 6.2 6.0- 8.3 gm/dL code = 2885-2) Albumin (test code = 3.1 g/dL 3.5-5 L 98056-8) Alkaline Phosphatase 89 U/L 40-150 (test code = 6768-6) Total Bilirubin (test 0.5 mg/dL 0.2-1.2 code = 1975-2) Sodium (test code = 137 meq/L 028-877 9662-2) Potassium (test code = 4.4 meq/L 3.5-5.1 2823-3) Chloride (test code = 101 meq/L 98-107 2075-0) CO2 (test code = 28 meq/L 22-29 2028-9) BUN (test code = 19 mg/dL 7-21 3094-0) Creatinine (test code = 4.63 mg/dL 0.57-1.25 H 2160-0) Glucose (test code = 75 mg/dL 70-105 2345-7) Calcium (test code = 8.6 mg/dL 8.4-10.2 99858-2) AST (test code = 34 U/L 5-34 1920-8) ALT (test code = 21 U/L 6-55 1742-6) EGFR (test code = 11 mL/min/1.73 [place] [address]-8) NOT ACCURATE CREATININE CLEARANCE IN PREDICTING GLOMERULAR FILTRATION RATE . ESTIMATED GFR I S NOT APPLICABLE FOR DIALYSIS PATIEN TS. Lab Interpretation Abnormal (test code = 07988-8) [facility] [id number] 06:33:00 Test Item Value Reference Range Interpretation [...] 347) EGFR (BEAKER) (test 11 mL/min/1.73 ESTIMA ELLA GFR IS code = 1092) sq m NOT ACCURATE CREATININE CLEARANCE IN PREDICTING GLOMERULAR FILTRATION RATE . ESTIMATED GFR I S NOT APPLICABLE FOR DIALYSIS PATIEN TS. CBC W/PLT COUNT & AUTO [id number] 05:46:00 Test Item Value Reference Range Interpretation [...] 0-1 PERCENT (BEAKER) (test code = 2801) [id number] 04:27:00 Test Item Value Reference Range Interpretation Comments RPR (test code = 68884-0) Nonreactive Nonreactive Lab Interpretation (test code = Normal 28332-0) [id number] 04:27[facility]00 Test Item Value Reference Range Interpretation Comments RPR SCREEN (BEAKER) (test code = Nonreactive Nonreactive 420) POCT-GLUCOSE [id number] 22:54:00 Test Item Value Reference Range Interpretation Comments POC-GLUCOSE METER 94 mg/dL 70-110 : TESTED A T [facility] 6720 (BEAKER) (test code = [facility] [facility], 1538) [address]: [employer]/Techni dax ID = [id number] for JACKY CAMACHO POCT-GLUCOSE [id number] 18:10:00 Test Item Value Reference Range Interpretation Comments POC-GLUCOSE METER 108 mg/dL 70-110 : TESTED A T [facility] 6720 (SOLOMON) (test code = [facility] [address] [facility], 1538) [address]: [employer]/Techni dax ID = [id number] for JULISSA KRISHNA MR, BRAIN, WITHOUT [id number] 16:05:00FINAL REPORT MR, BRAIN, WITHOUT CONTRAST INDICATION: [...] changes, commensurate with age. Signed: Brianna Abraham Verified Date/Time: 02/17/2019 16:05:48 MR brain without IV [id number] 16:05:00Interface, External Ris In - 02/17/2019 4:08 PM CSTFINAL REPORT MR, BRAIN, WITHOUT CONTRAST INDICATION: Stroke, follow up TECHNIQUE: Multiplanar, multisequence MR imaging of thebrain without intravenous contrast. COMPARISON: None FINDINGS: Intracranial: [...] changes, commensurate with age. 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 Normal LV size and function. Estimated LVEF is normal (60%) . 2. Normal RVsize and function. 3. Grade 2 diastolic dysfunction (moderately increased LA pressure) 4. Mild aortic stenosis. CT 1.91 cm2. 5. Crkk-eh-baisgyfn tricuspid regurgitation. 6. Estimated peak systolic PA pressure is 55-60 mmHg Previous Study No prior exam available for comparison. Signature Findings Technical Quality: Technically fair exam. Left Ventricle The left gisselle tricle is chamber size (by PSLAX dimension) is normal (female - LVIDd 3.8-5.2cm) . Normal LV wall thickness. All of the LV segments contract normally . Global LV systolic function normal . Estimated LVEF by qualitative assessment is normal (>60%) . Grade 2 diastolic dysfunction (moderately increased LA pressure). Left Atrium LA size is moderately enlarged (42-48 ml/m2) . Right Ventricle The right ventricular chamber size and systolic function are within normal limits. Right Atrium The RA is partially visualized. Aortic Valve Mild AoV cusp thickening. Mild AoV cusp calcification. AoV cusp mobility is mildly decreased . Mild aortic stenosis. AoV area at rest by continuity equation is in the range of 1.91 cm2. Mitral Valve Mild mitral annular calcification. Mild MV leaflet thickening. Tricuspid Valve Uteq-pq-mykudknh tricuspid regurgitation. Estimated peak systolic PA pressure is 55-60 mmHg . Pulmonic Valve Mild pulmonary regurgitation. Normal PV structure and function by limited views and Doppler. Aorta Aortic root size (SInus of Valsalva diameter) is normal . Pericardium No significant pericardial effusion is visualized. IVC/SVC/PA/PV/Pleural A left pleuraleffusion is noted. The estimated RA pressure by [...] 2.42 cm Doppler/Quantitative Measurements Mitral Valve MV Mason-Wave: 1.46 m/s MV Peak A-Wave: 1.12 m/s E/A Ratio: 1.3 Mean Velocity: 0.7 m/s Peak Gradient: 8.52 mmHg Mean Gradient: 2.44 mmHg Deceleration Time: 200.3 msec Area (continuity): 2.2 cm^2 MV VTI: 36.4 cm MV Santi. Peak: 1.39 m/s Tissue Doppler E' Lateral Velocity: 0.06 m/s Aortic Valve Peak Velocity: 1.95 m/s Mean Velocity: 1.4m/s Peak Gradient: 15.22 mmHg Mean Gradient: 9.53 mmHg AV Area (continuity): 1.91 cm^2 AV VTI: 42.07 cm AV DVI: 0.72 LVOT Peak Velocity: 1.4 m/s Peak Gradient: 7.85 mmHg Mean Velocity: 0.91 m/s Mean Gradient: 4 mmHg LVOT Diameter: 1.84 cm LVOT VTI: 30.16 cm LVOT Area: 2.66 cm^2 LVOT SV:80.16 ml LVOT CO: 6.57 l/min LVOT CI: 3.59 l/min/m^2 Tricuspid Valve TR Velocity: 3.52 m/s TR Gradient: 49.63 mmHg [facility] [id number] 12:03:00 Test Item Value Reference Range Interpretation Comments POC-GLUCOSE METER 145 mg/dL 70-110 H : Notified RN/MD: (SOLOMON) (test code = TESTED AT [facility] 6720 1538) [facility], [address]: [employer] Dock/Techni dax ID = [id number] for JULISSA KRISHNA Urinalysis w/Microscopic + Reflex to [id number] 11:54:00 Test Item Value Reference Range Interpretation Comments Color, UA (test code = 5778-6) Yellow Clarity, UA (test code = 5767-9) Hazy Specific Pyatt, UA (test code = 1.011 1.001-1.035 5811-5) pH, UA (test code = 5803-2) 8.5 5.0-8.0 H Protein, UA (test code = 93814-6) 300 mg/dL Negative A Glucose, UA (test code = 365) Negative Negative Ketones, UA (test code = 2514-8) Negative Negative Bilirubin, UA (test code = 08398-4) Negative Negative Blood, UA (test code = 37566-9) Trace Negative A Nitrite, UA (test code = 5802-4) Positive Negative A Leukocytes, UA (test code = 5799-2) Large Negative A Urobilinogen, UA (test code = 0.2 mg/dL 0.2-1 78515-6) RBC, UA (test code = 30931-0) 9 /HPF WBC, UA (test code = 5821-4) 24 /HPF Bacteria, UA (test code = 22929-3) Moderate Mucus (test code = 8247-9) Many Squam Epithel, UA (test code = 50 /HPF 62500-3) Specimen Source (test code = 2795) Lab Interpretation (test code = Abnormal 71375-7) [facility] REFLEX URINE [id number] 11:54:00 Test Item Value Reference Range Interpretation [...] = 516) SOURCE(BEAKER) (test code = 2795) Vitamin B12 and Nivnol3778-53-77 09:50:00 Test Item Value Reference Range Interpretation Comments Vitamin B12 (test code = 2132-9) >2000 213-816 H Folate (test code = 2284-8) 16.5 ng/mL >=7.0 Lab Interpretation (test code = Abnormal 38226-3) [facility] B12 AND [id number] 09:50:00 Test Item Value Reference Range Interpretation Comments VITAMIN B12 (BEAKER) (test code = > pg/mL 213-816 H 774) FOLATE (BEAKER) (test code = 362) 16.5 ng/mL >=7.0 Hemoglobin [id number] 09:03:00 Test Item Value Reference Range Interpretation Comments Hemoglobin A1C (test code = 4548-4) 4.3 % 4.3-6.1 Lab Interpretation (test code = Normal 29130-1) [facility] HospitalHEMOGLOBIN [id number] 09:03:00 Test Item Value Reference Range Interpretation Comments HEMOGLOBIN A1C (BEAKER) (test code = 4.3 % 4.3-6.1 368) HEMOGLOBIN [id number] 06:22:00 Test Item Value Reference Range Interpretation Comments HEMOGLOBIN A1C (BEAKER) (test code = 4.3 % 4.3-6.1 368) COMPREHENSIVE METABOLIC [id number] 05:42:00 Test Item Value Reference Range Interpretation [...] 347) EGFR (BEAKER) (test 17 mL/min/1.73 ESTIMA ELLA GFR IS code = 1092) sq m NOT ACCURATE CREATININE CLEARANCE IN PREDICTING GLOMERULAR FILTRATION RATE . ESTIMATED GFR I S NOT APPLICABLE FOR DIALYSIS PATIEN TS. [facility] Centering lipid [id number] 05:36:00 Test Item Value Reference Range Interpretation Comments Triglycerides (test 61 mg/dL code = 2571-8) Cholesterol (test code 104 mg/dL = 2093-3) HDL (test code = 56 mg/dL 5-9) LDL Calculated (test 36 mg/dL code = 96394-4) MAYNOR (test code = MAYNOR) Triglyceride Reference Range: Low Risk <150 Borderline 150-199 High Risk 200-499 Very High Risk >=500 Cholesterol Reference Range: Low Risk <200 Borderline 200-239 High Risk >240 HDL Cholesterol Reference Range: Low Risk >=60 High Risk <40 LDL Cholesterol Reference Range: Optimal <100 Near Optimal 100-129 Borderline 130-159 High 160-189 Very High >=190 Fasting [facility] HospitalLIPID [id number] 05:36:00 Test Item Value Reference Range Interpretation [...] High >=190 FastingCBC W/PLT COUNT & AUTO YHKEJJDXDYTD9361-02-75 05:04:00 Test Item Value Reference Range Interpretation [...] PERCENT (BEAKER) (test code = 2801) POCT-GLUCOSE [id number] 00:21:00 Test Item Value Reference Range Interpretation Comments POC-GLUCOSE METER 92 mg/dL 70-110 : TESTED A T [facility] [address] (BEAKER) (test code = [place], 1538) [address]: [employer] Dock/Techni dax ID = [id number] for Kirstie Guajardo Hepatitis B surface ixfvvhm5605-63-25 20:43:00 Test Item Value Reference Range Interpretation Comments HBsAg Screen (test code = 5195-3) Nonreactive Nonreactive Lab Interpretation (test code = Normal 98441-2) [facility] Hospital[facility] C ebabunvm6107-49-46 20:43:00 Test Item Value Reference Range Interpretation Comments Hepatitis C Ab (test code = Nonreactive Nonreactive 85002-6) Lab Interpretation (test code = Normal 49027-3) [facility] HospitalHEPATITIS B SURFACE [id number] 20:43:00 Test Item Value Reference Range Interpretation Comments HEPATITIS B SURFACE ANTIGEN (2) Nonreactive Nonreactive (BEAKER) (test code = 2585) HEPATITIS C YQNZDVVK8889-34-55 20:43:00 Test Item Value Reference Range Interpretation Comments HEPATITIS C ANTIBODY (BEAKER) Nonreactive Nonreactive (test code = 367) Vitamin [id number] 19:57:00 Test Item Value Reference Range Interpretation Comments Vitamin B12 (test code = 2132-9) >2000 213-816 H Lab Interpretation (test code = Abnormal 71002-4) [facility] HospitalVIT[facility]IN [id number] 19:57:00 Test Item Value Reference Range Interpretation Comments VITAMIN B12 (BEAKER) (test code = > pg/mL 213-816 H 774) [id number] 19:45:00 Test Item Value Reference Range Interpretation Comments TSH (test code = 34993-8) 1.78 0.35- 4.94 uIU/mL Lab Interpretation (test code = Normal 58085-6) [facility] HospitalTSH2019-11-29 19:45:00 Test Item Value Reference Range Interpretation Comments THYROID STIMULATING HORMONE 1.78 uIU/mL 0.35-4.94 (BEAKER) (test code = 772) Troponin [id number] 19:27:00 Test Item Value Reference Range Interpretation Comments Troponin I (test code = 0.04 ng/mL 0-0.03 H 20870-7) MAYNOR (test code = MAYNOR) Troponin I (TnI) levels must be interpreted [...] acidosis, acute neurological disease, and persistent tachyarrhythmia. Lab Interpretation (test Abnormal code = 53996-4) [facility] HospitalTROPONIN [id number] 19:27:00 Test Item Value Reference Range Interpretation [...] acute neurological disease, and persistent tachyarrhythmia.COMPREHENSIVE METABOLIC [id number] 19:21:00 Test Item Value Reference Range Interpretation [...] 347) EGFR (BEAKER) (test 10 mL/min/1.73 ESTIMA ELLA GFR IS code = 1092) sq m NOT ACCURATE CREATININE CLEARANCE IN PREDICTING GLOMERULAR FILTRATION RATE . ESTIMATED GFR I S NOT APPLICABLE FOR DIALYSIS PATIEN TS. Prothrombin time/[id number] 19:10:00 Test Item Value Reference Range Interpretation Comments Protime (test code = 16.0 11.9- 14.2 H 5902-2) seconds INR (test code = 1.4 <=5.9 6301-6) MAYNOR (test code = MAYNOR) Effective 08/16/2018: PT Reference Range ChangeNew: 11.9-14.2 Previous: 11.7-14.7 RECOMMENDED COUMADIN/WARFARIN INR THERAPY RANGESSTANDARD DOSE: 2.0-3.0 Includes: PROPHYLAXIS for venous thrombosis, systemic embolization; TREATMENT for venous thrombosis and/or pulmonary embolus.HIGH RISK: Target INR is 2.5-3.5 for patients wiht mechanical heart valves. Lab Interpretation Abnormal (test code = 20889-2) [facility] HospitalPROTHROMBIN TIME/[id number] 19:10:00 Test Item Value Reference Range Interpretation [...] mechanical heart valves.CBC W/PLT COUNT & AUTO IHWWWEPUGENJ2976-70-77 19:02:00 Test Item Value Reference Range Interpretation [...] = 2801) RAD, CHEST, 1 VIEW, NON [id number] 18:34:00Reason for exam:->Shortness of breathShould this be [...] MDReport Verified Date/Time: 02/16/2019 18:34:17 Reading Location: [address] Consult Reading Room XR chest 1 view portable / wiakyuq2383-07-10 18:34:00Interface, External Ris In - 02/16/2019 6:36 PM CSTFINAL REPORT TECHNIQUE: Frontal view of the chest. INDICATION: 88-year-old woman with shortness of breath. COMPARISON: None. F INDINGS: LINES/TUBES: None. LUNGS: The lungs are well inflated. Bilateral airspace opacities. PLEURA: Suspected small left pleural effusion. No pneumothorax. HEART AND MEDIASTINUM: Prominent cardiac silhouette. SOFT TISSUES AND BONES: Unremarkable. IMPRESSION:Bilateral airspace opacities, likely pulmo nary edema. Less likely differential consideration includes multifocal pneumonia. Prominent cardiac silhouette. Signed: Priscila Jung MDReport Verified Date/Time: 02/16/2019 18:34:17 Reading Location: [facility] C013W Consult Reading Room [facility]aCHEM [id number] 15:22:0014[facility] HermannCHEM ACSRG7982-25-78 15:22:16972Wncikhxs HermannCHEM SBRVB3487-37-43 15:22:0022[facility] HermannCHEM ZKUBP3080-10-04 15:22:003.20[facility]annCHEM CPNAF3624-40-34 15:22:79124Azfnsrkw HermannCHEM TBHHF6950-56-46 15:22:0027 [facility]annCHEM LMTEY2900-08-55 15:22:0098[facility] HermannCHEM PANEL 2017-11-26 15:22:003.9[facility] HermannCHEM EBGUX4249-79-51 15:22:0012.9[facility] HermannCHEM NBAHG5994-42-36 15:22:008.1[facility] AytocqbYNONYXPXBS3743-59-31 15:22:000.7[facility] XxsuokzHOOFVPEMXI6779-03-67 15:22:000.1[facility] GCYRUBACRE7401-73-35 15:22:000.5[facility] KganycpVSCXTVNMGL6444-62-27 15:22:000.9 [facility] UjiinaeEPTQOWRXQR5133-47-48 15:22:005.3[facility] HermannHEMATOLOGY 2017-11-26 15:22:007.3[facility] RnueeahHQILVXVRYZ8462-35-73 15:22:000.6[facility] TarqpqjKZEIHFSJHE9655-35-97 15:22:008.4[facility] FgganmsQJYCCJVAJI1720-38-53 15:22:0084.8[facility] LxseskgOOZUBBXITA3727-04-41 15:22:000.1[facility] TNKKFBLDGL7286-61-54 15:22:0034.5[facility] QcvtfiqZGYRRCXEGB2249-47-50 15:22:00 15.1[facility] DjxczfcJNMCBQFJKU9370-07-18 15:22:20038Odfjeqap HermannHEMATOLOGY 2017-11-26 15:22:008.2[facility] KwfzwmsJXZMSYWEEL3747-79-80 15:22:002.73[facility] IfbartnMZZFMMDKBD9159-96-22 15:22:008.9[facility] VlbfddrSSFYAULHYR8533-98-51 15:22:0025.9[facility] AgcxwhmOXODLKMAOV1017-74-39 15:22:0094.8[facility] FWCWEVMGYT6760-51-85 15:22:00 Test Item Value Reference Range Interpretation Comments MCH (test code = MCH) 32.7 pg 27.0-31.0 [facility] OjdtuciOUEWRFLSAF3192-30-29 15:22:008.6[facility] HermannBACTERIAL - BYYYCYRI9173-00-52 05:49:00Negative (11/26/17 12:49 AM)[facility] HermannANEMIA VMIJU1805-33-00 00:10:0031.9[facility] HermannANEMIA EWIFL5452-45-11 00:10:60068 [facility]annANEMIA BHUWO2667-88-01 00:10:129627Ciyyhqph HermannCHEM PANEL 2017-11-26 00:10:25589Owbwytdy HermannCHEM QSQLT7720-63-73 00:10:000.2[facility] HermannCHEM XQHKQ2817-24-06 00:10:000.4[facility] HermannCHEM FTGUX4443-94-92 00:10:000.2[facility] GtubcruXEYIWSDRBL4418-59-48 00:10:001.6[facility] UNXFAMXDMF1373-04-56 00:10:0025.8[facility] HermannORGANIC QVSK7871-15-36 00:10:00 572[facility] HermannBLOOD BANK AUXMKLZ3298-92-47 23:45:23Product available 1(11/25/17 6:45 PM)[facility]annBLOOD BANK FFDDFDG3427-93-32 22:20:00Negative (11/25/17 5:20 PM)[facility]annBLOOD BANK EXTOUOZ2202-75-93 22:20:00Product available 2(11/25/17 5:20 PM)[facility] CaezuwjFXPYQAINDEDN1347-72-72 22:20:0013.7 [facility] LiaorbjWVXIFSJKMUOK1497-26-32 22:20:00 Test Item Value Reference Range Interpretation Comments B/C Ratio (test code = B/C Ratio) 8 1 6-25 Memorial BburcehCAEKTZKADRLG8235-22-41 22:20:00 Test Item Value Reference Range Interpretation Comments A/G Ratio (test code = A/G Ratio) 0.8 1 0.7-1.6 [facility] ZwrcgrhMMFSFPDNNXSC8370-04-49 22:20:003.9[facility] HermannELECTROLYTES 2017-11-25 22:20:02631Wamybzhw TcmpoguOVZULXJBHDWZ3582-32-77 22:20:95559Obuzumpi NwngdbkXXCVWNTIFXWL3318-43-69 22:20:003.7[facility] HuxtmzdDZOLJRREYTWW1803-14-24 22:20:0031[facility] AdymqxkZGQKEMVUZYCB4821-83-21 22:20:0025[facility] QMFOEYMNNIQG2700-57-00 22:20:003.1[facility] JskcdhfPTHVLKEQGSEU5317-52-16 22:20:008.0[facility] AqoicigCLUHHYBFOXEN5188-91-19 22:20:0027[facility] ZOKNNDLQCAGE2905-17-34 22:20:0041[facility] WqzchuzXZRMZOVGYEPA2685-25-99 22:20:00 114[facility] QdckavdHZEQTCRKZXGU1271-08-37 22:20:007.0[facility] ZKNEILIHBPIE9374-28-88 22:20:004.96[facility] UhnmnilFNRJAHGEIXCX0859-90-61 22:20:000.4[facility] DuiyuyxIXJEMBARWOLQ8707-96-40 22:20:0073[facility] WDCGKXTJALMO1394-10-07 22:20:008[facility] CwwaqbuIJAEESBCCK5345-55-93 22:20:006.3 [facility] DdcoefyHTEDKQUCYJ1162-15-96 22:20:001.95[facility] HermannHEMATOLOGY 2017-11-25 22:20:006.3[facility] BvxmqvvKXQBNEWHOJ1829-39-78 22:20:0018.3[facility] DjawcjzXXODHVUORQ3558-20-81 22:20:0034.5[facility] BuqttctGTHGGILOVC6282-56-44 22:20:00 Test Item Value Reference Range Interpretation Comments MCH (test code = MCH) 32.4 pg 27.0-31.0 [facility] OyucfvbOOHUHHLAOM5276-54-34 22:20:0093.7[facility] HermannHEMATOLOGY 2017-11-25 22:20:008.1[facility] SsxjsloDMEGMIPNAH5177-04-80 22:20:94082Nfdxigun IdngoooDRGGJNEKLP7888-80-68 22:20:0016.3[facility] OuvfmdqRTBMUVMHFT4429-84-38 22:20:005.1[facility] EefnixnFUDLDOCNET7843-13-80 22:20:000.3[facility] CQRFIFBFOX8639-82-80 22:20:000.8[facility] DjkshrrECKFAJSCUI9546-39-90 22:20:001+ (11/25/17 5:20 PM)[facility] KllzvnnPDRWJDHEVR6752-74-52 22:20:001+ *ABN*(11/25/17 5:20 PM)[facility] FdofavaWCMTAXKMQK7640-85-91 22:20:001+ *ABN*(11/25/17 5:20 PM) [facility] IlsfpngJZOFSOGDGH7030-23-11 22:20:00See Note (11/25/17 5:20 PM)[facility] GtwznqkZKNIYXNBQK2723-63-97 22:20:0080.8[facility] StxrcddRTJKGAGZGN1347-74-34 22:20:00Normal (11/25/17 5:20 PM)[facility] MtijcwfZVWNOOESEZ5355-79-01 22:20:005.5 [facility] ZpxrsklMGEEHLXSAT2823-52-28 22:20:0013.0[facility] HermannHEMATOLOGY 2017-11-25 22:20:000.5[facility] EmhwiupGVLIEQLBPZ0731-59-64 22:20:000.2[facility] WrevnkyEWCNEHVLLX5981-45-10 22:20:00Occasional *ABN*(11/25/17 5:20 PM)[facility] UfvdwqpOSVOJOGKGL1834-94-48 22:20:00Negative *NA*(11/25/17 5:20 PM)[facility] QhueiasQNKJITJUPTDG8034-22-04 10:29:0010.8[facility] NybvcivVGDEJOWCQLTH4030-32-71 10:29:0015[facility] KatzjgdALHEOWQXZQOC5472-80-78 10:29:008.5[facility] VIMDPSESUFPG2969-49-09 10:29:003.11[facility] BzraquoADXTXKBYBTLT1181-63-66 10:29:0082[facility] YjjbjdkFYWSVSNKTPLT3904-03-84 10:29:47248Lnuibgte Hugo WLXNLVQRHVXG9983-32-43 10:29:0099[facility] ScalqjoHULCIIYTZYIN6092-07-96 10:29:00 30[facility] VihoqhcANUZJQBSDDJA1911-05-55 10:29:004.8[facility] HermannELECTROLYTES 2017-04-29 10:29:0019[facility] DirqmxpRZPPGLINWV1708-07-20 10:29:000.7[facility] GwtezzxCCAHVPGEQB0666-84-76 10:29:001.3[facility] YyecmbaLTOKMDVYXP4077-65-19 10:29:0074.6[facility] RdfcxqdNMFNYBDLXC0578-99-89 10:29:000.4[facility] VPVQONHGTP1300-20-47 10:29:003.9[facility] TluctdkTKVHDRKZNK5449-95-72 10:29:000.8 [facility] ZigzvpdFSYYUKOKXE2815-42-40 10:29:000.1[facility] HermannHEMATOLOGY 2017-04-29 10:29:0015.1[facility] EprpbwhEILZPQMNWR8208-33-32 10:29:008.3[facility] RebqiqmGJLKCLTTYU0637-53-92 10:29:0014.7[facility] IvjahzfTZQIWDYGVK0915-29-19 10:29:79246Qvbsuigr NdmyiwlVHIEXSAQVC5285-79-54 10:29:008.5[facility] OFLUKDOPTI7193-81-17 10:29:0096.8[facility] VxjupvaHQITUJUZOU6429-80-50 10:29:00 28.5[facility] HdiusohLZAPYJSRLB2230-13-90 10:29:0035.6[facility] HermannHEMATOLOGY 2017-04-29 10:29:00 Test Item Value Reference Range Interpretation Comments MCH (test code = MCH) 34.4 pg 27.0-31.0 [facility] CpyitnwLCRNHJRTHA3760-35-79 10:29:005.2[facility] HermannHEMATOLOGY 2017-04-29 10:29:002.94[facility] BkiczziIDPYWENJNC4444-25-14 10:29:0010.1[facility] YiduzkeOFOJMLVYDUBR6878-55-22 19:49:005.3[facility] HermannBLOOD BANK RESULTS 2017-04-28 13:30:13Negative (04/28/17 7:30 AM)[facility] HermannBLOOD BANK RESULTS 2017-04-28 13:00:00Product available 1(04/28/17 7:00 AM)[facility] HermannCHEM PANEL 2017-04-28 09:58:009[facility] HermannCHEM QOXHB8331-37-66 09:58:008.2[facility] HermannCHEM LGECX8895-97-29 09:58:0029[facility] HermannCHEM LRJUD9596-69-94 09:58:36055Xwtrpifr HermannCHEM MSQIK6822-46-28 09:58:0097[facility] HermannCHEM SWJLD2800-35-86 09:58:005.7[facility] HermannCHEM LQWME7796-12-47 09:58:0037 [facility] HermannCHEM PKCDG8578-26-29 09:58:0087[facility] HermannCHEM PANEL 2017-04-28 09:58:004.70[facility] HermannCHEM WXYPA7591-85-73 09:58:009.7[facility] VseedryPUWMDTOCVQ0705-06-83 09:58:69046Sdzgvbmo XwrfyhdOSIZCFKYSZ4121-74-51 09:58:008.1[facility] KsnhphtFQJEQCVIRL8874-87-01 09:58:0013.6[facility] YFUYGLEZRT5399-24-89 09:58:00 Test Item Value Reference Range Interpretation Comments MCH (test code = MCH) 34.9 pg 27.0-31.0 Memorial NpzmswbMXHWZZLTAN9270-69-89 09:58:0035.4[facility] HermannHEMATOLOGY 2017-04-28 09:58:006.5[facility] GqcephpANQJURMBOR7700-06-05 09:58:0098.6[facility] OpantbmTVIQZWKJCS1590-00-51 09:58:0018.5[facility] OdauaayUXIDPOJLWX5806-32-79 09:58:004.2[facility] EivgexpELUZILWLPJ0958-47-66 09:58:001.87[facility] NSHBMXNICP6933-27-69 09:58:000.4[facility] FgdjsnnPWKCXPZUBJ0864-74-85 09:58:000.1 [facility] LbqobryATGOBCIRPQ8339-66-22 09:58:002.7[facility] HermannHEMATOLOGY 2017-04-28 09:58:001.0[facility] MjqkujjXHFTUWGYHT5947-19-57 09:58:0024.2[facility] ZyigijsUZHDOCVLAA6544-04-82 09:58:0064.0[facility] DidmeemJHGWQZOGEP0295-20-39 09:58:008.8[facility] DlvqlqfAZDRGBTPXZ4682-14-53 09:58:002.1[facility] TSHTWTCMRP8254-33-22 09:58:000.9[facility] VufgpbkGQNXMXSWCA3086-90-61 01:51:004.2 [facility] QntlmpxWOQDMHLTCL3376-96-97 01:51:0019.3[facility] HermannHEMATOLOGY 2017-04-28 01:51:0098.8[facility] UfnzawlZDPFYHDILD7209-35-41 01:51:007.0[facility] XmddrucXCKCYRIANB8324-77-06 01:51:00 Test Item Value Reference Range Interpretation Comments MCH (test code = MCH) 35.6 pg 27.0-31.0 [facility] HaypqtcVZIHXRJRBU4175-03-87 01:51:001.95[facility] HermannHEMATOLOGY 2017-04-28 01:51:008.6[facility] DhxazxfKDKIGTLGJV8462-31-68 01:51:28877Apwunuso TmyaretZYHUSGGUXG3085-91-31 01:51:0036.0[facility] XwazuzlHSHRUJGNZQ6778-16-95 01:51:0013.8[facility] IsjfiynRKWWJALCZWGW1900-39-80 10:40:0097[facility] GPMDGTGTTRXH9298-42-53 10:40:98021Oaidukmh FeydoqsKDBZXTRCZIPF0120-97-51 10:40:003.24[facility] VrgwmmkYLDDEVRFGFDH6957-69-41 10:40:0031[facility] EBXOKOEKUWPB2104-95-46 10:40:008.4[facility] WwdkywnCDZDKVFEUWXR8221-26-97 10:40:009.2[facility] SoorghjFYRCGVZFKDRS1653-15-40 10:40:0075[facility] ROMFBKQZPEBH8231-45-52 10:40:0022[facility] FahhtunEDMEYSDIYWLB4861-48-51 10:40:00 14[facility] PbrphygODVWGIVAOH8844-56-55 15:31:00Negative *NA*(04/22/17 9:31 AM) [facility]annANEMIA GINTI8109-19-37 13:14:86655Uglnrjmh HermannANEMIA STUDY 2017-04-22 13:14:321274Brtofjcc HermannANEMIA YJLTJ5858-01-82 13:14:0016[facility] HermannANEMIA LFVNK7444-88-52 13:14:94856Ygzucfsb HermannANEMIA ZIUIY0603-76-62 13:14:16024Ozbtnsdf HermannANEMIA IZSYY6585-11-63 13:14:0025[facility] CARDIAC POFTHJE6681-37-36 13:14:000.06[facility]annCARDIAC GAQPUHA9331-56-63 13:14:0070[facility]annCARDIAC HXTTFRB4113-35-16 13:14:5537184Wvselhmd HermannCHEM ECACH3620-22-25 13:14:002.4[facility] HermannCHEM NDFAV9079-19-59 13:14:002.2[facility]annCHEM BLGPS3349-84-22 13:14:00 Test Item Value Reference Range Interpretation Comments B/C Ratio (test code = B/C Ratio) 7 1 6-25 [facility] HermannCHEM [id number] 13:14:00 Test Item Value Reference Range Interpretation Comments A/G Ratio (test code = A/G Ratio) 1.0 1 0.7-1.6 [facility]annCHE[facility] [id number] 13:14:002.9[facility]annCHEM PANEL 2017-04-22 13:14:002.9[facility] HermannCHEM OPKKO3635-81-09 13:14:000.6[facility] HermannCHEM DTWZQ8972-79-65 13:14:0018[facility]annCHEM RNHEA9841-85-86 13:14:0016[facility]annCHEM AHPJK3602-41-50 13:14:0069[facility]annCHEM RAMVD5534-35-20 13:14:005.8[facility] CajtokrQYPWOHJAQK8556-45-11 13:14:000.5 [facility] ThjsedmWJHPNRIMAL7753-71-73 13:14:000.6[facility]annHEMATOLOGY 2017-04-22 13:14:0083.9[facility] GztnfsbWRDBHZMFLZ2856-84-35 13:14:000.5[facility] RzufdnwLCRHCXCLHA4771-40-13 13:14:000.7[facility] LxcsajeTWWMXZKTVL7693-61-83 13:14:008.2[facility] RomnzkaWDZPHGMLFF1690-84-40 13:14:006.7[facility] WYKBPMUUNV8851-48-78 13:14:005.7[facility] OibwuafPFZCQICSTE4506-45-30 13:14:00 Test Item Value Reference Range Interpretation Comments INR (test code = INR) 1.12 1 0.85-1.17 [facility] YetzptzVIBRGXURJO8161-80-74 13:14:00 Test Item Value Reference Range Interpretation Comments PT (test code = PT) 14.4 s 12.0-14.7 [facility] IzkyoilUTDPNPTXJN1429-89-00 13:14:00 Test Item Value Reference Range Interpretation Comments PTT (test code = PTT) 34.0 s 22.9-35.8 [facility]ann[facility]ARDIAC YFYCBTD6512-85-16 09:15:000.04[facility]annCARDIAC BCRAYKR8316-34-38 09:15:0085[facility]annCARDIAC JBNDAFL1887-24-33 09:15:00 <0.6[facility]annCARDIAC ULXCFMD4408-44-53 09:15:00<0.5[facility] BACTERIAL - YURQHYHH9783-92-07 08:38:00Negative (04/22/17 2:38 AM)[facility] CHEM [id number] 08:38:0018[facility]annCHEM FKPUN3052-18-95 08:38:0074 [facility]annCHEM NTOGA9400-79-98 08:38:000.7[facility] HermannCHEM PANEL 2017-04-22 08:38:003.1[facility]annCHEM OGPLM5319-95-61 08:38:006.9[facility] HermannCHEM ALUIS8843-67-44 08:38:003.8[facility] HermannCHEM XDXFJ8932-53-78 08:38:00 Test Item Value Reference Range Interpretation Comments A/G Ratio (test code = A/G Ratio) 0.8 1 0.7-1.6 [facility]annCHEM GMFDT1385-53-76 08:38:0014[facility] HermannCHEM PANEL 2017-04-22 08:38:00 Test Item Value Reference Range Interpretation Comments B/C Ratio (test code = B/C Ratio) 7 1 6-25 [facility]annCHEM RNAOX5401-29-63 08:38:001.9[facility] HermannHEMATOLOGY 2017-04-22 08:38:00 Test Item Value Reference Range Interpretation Comments INR (test code = INR) 1.10 1 0.85-1.17 [facility] KlfdnlgHPQPYDMYIC9587-35-89 08:38:00 Test Item Value Reference Range Interpretation Comments PT (test code = PT) 14.2 s 12.0-14.7 [facility] HcnzrbvWQPSVQCSLB1757-34-12 08:38:00 Test Item Value Reference Range Interpretation Comments PTT (test code = PTT) 37.7 s 22.9-35.8 [facility]BGOVPLHYE8122-96-38 08:38:000.1[facility]
--- NOTE | 2019-09-12 17:04 | RAD REPORT ---
EXAM DESCRIPTION: RAD - Foot Left 3 View - 09/12/2019 4:29 pm CLINICAL HISTORY: PAIN, left foot trauma, no specific site of pain noted COMPARISON: No comparisons FINDINGS: No acute fracture identifiable. No dislocation or periosteal reaction. Mineralized periost eal thickening noted along the shafts of the third and fourth metatarsals and to a lesser degree prox imal shaft second metatarsal. This is probably reactive change from stress fracture. Patient's pain i s apparently acute onset from trauma. These periosteal changes are not likely of acute clinical signi ficance. Patient has osteopenic change throughout the foot. Moderately advanced degenerative change p resent at the first MTP joint. IP joint degenerative changes are mild. Mild degenerative changes are present in the tarsal bones. A moderate-sized plantar spur is present. Distal foot soft tissue swelling is present. No air or foreign body. IMPRESSION: Osteopenic and degenerative changes are present along with suspected chronic stress frac ture changes to the second- fourth metatarsals. An acute fracture is not confirmed.
--- NOTE | 2019-09-12 17:34 | ER ---
Nurse's Notes [facility] Name: Erendira Graham Age: 88 yrs Sex: Female : 1930 Arrival Date: 09/12/2019 Time: 14:44 Bed 14 Private MD: Anna Marie Hannah Diagnosis: Weakness;Malaise and fatigue;End stage renal disease Presentation: 09/11 15:05 Chief complaint: Patient states: Generalized weakness for 2 days. Slipped last night ll1 and hurt her left foot. Denies cough/fever. Slight nausea. Coronavirus screen: Proceed with normal triage. Patient denies a cough. Patient denies shortness of breath or difficulty breathing. Patient denies measured and/or subjective temperature greater than 100.4F prior to today's visit. Patient denies travel on a cruise ship or to a country the [facility] currently lists as an affected area. Patient denies contact with known and/or suspected case of COVID-19. Ebola Screen: Patient denies travel to an Ebola-affected area in the 21 days before illness onset. No acute neurological deficit is noted. Pre-hospital glucose is not applicable to this patient. Initial Sepsis Screen: Does the patient meet any 2 criteria? No. Patient's initial sepsis screen is negative. Risk Assessment: Do you want to hurt yourself or someone else? Patient reports no desire to harm self or others. Onset of symptoms was September 11, 2019. 15:05 Method Of Arrival: Wheelchair ll1 15:05 Acuity: KEKE 3 ll1 19:35 Initial Sepsis Screen: Does the patient have a suspected source of infection? No. ah Patient's initial sepsis screen is negative. Stroke Activation: Symptom onset > 6 hours Physician: Stroke Attending; Name: ; Notified At: ; Arrived At: Physician: Chief Stroke Resident; Name: ; Notified At: ; Arrived At: Physician: Stroke Resident; Name: ; Notified At: ; Arrived At: Physician: ED Attending; Name: ; Notified At: ; Arrived At: Physician: ED Resident; Name: ; Notified At: ; Arrived At: Historical: - Allergies: 15:09 Karlene; ll1 15:09 Bactrim; ll1 15:09 Ciprofloxacin; ll1 15:09 Demerol; ll1 15:09 PENICILLINS; ll1 15:09 Talwin; ll1 15:09 tequin; ll1 - Home Meds: 22:02 acetaminophen-codeine 300-30 mg Oral tab 1 tab as needed for Pain [Active]; aspirin 81 ah mg Oral TbEC 1 tab once daily [Active]; clonidine HCl 0.3 mg Oral tab 1 tab 2 times per day [Active]; DIALYVITE 800 0.8 mg Oral tab [Active]; docusate sodium 100 mg Oral tab 2 times per day [Active]; doxazosin 8 mg Oral tab twice a day [Active]; hydralazine 100 mg Oral tab 3 times per day [Active]; isosorbide mononitrate 30 mg Oral Tb24 twice a day [Active]; melatonin 5 mg Oral tab nightly [Active]; minoxidil 2.5 mg Oral tab 1 tabs 2 times per day [Active]; nifedipine 90 mg Oral TbER twice a day [Active]; Plavix 75 mg Oral tab 1 tab once daily [Active]; sertraline 50 mg Oral tab 1 tab once daily [Active]; Tums 300 mg (750 mg) Oral chew [Active]; Vitamin D Oral 5000 unit daily [Active]; - PMHx: 15:09 Diabetes - NIDDM; Dialysis; ESRD; CHF; Hypertension; ll1 - PSHx: 15:09 Hysterectomy; Cholecystectomy; ll1 - Immunization history:: Adult Immunizations up to date. - Social history:: Smoking status: Patient denies any tobacco usage or history of. Patient/guardian denies using alcohol, street drugs, tobacco products. - Family history:: not pertinent. - Hospitalizations: : No recent hospitalization is reported. Screenin:35 Abuse screen: Denies threats or abuse. Nutritional screening: No deficits noted. Tuberculosis screening: No symptoms or risk factors identified. Fall Risk None identified. Assessment: 15:15 General: Appears uncomfortable, Behavior is calm, cooperative, appropriate for age. Pain: Complains of pain in left foot Pain Pain began 1 day ago. Neuro: Level of Consciousness is awake, alert, obeys commands, Oriented to person, place, time, situation. Cardiovascular: Heart tones S1 S2 present Capillary refill < 3 seconds Patient's skin is warm and dry. Pulses are palpable in right radial artery and left radial artery. Respiratory: Airway is patent Respiratory effort is even, unlabored. Derm: Skin is intact. 16:18 Reassessment: xray in room. ah 17:30 Reassessment: Patient and/or family updated on plan of care and expected duration. Pain ah level reassessed. NO needs voiced at this time. 18:30 Reassessment: Patient and/or family updated on plan of care and expected duration. Pain ah level reassessed. Awaiting on decision from provider. 19:39 Reassessment: Informed Pt that she will be in ER for awhile as there are no beds ah available at this time. Pt voiced understanding. Vital Signs: 15:05 BP 138 / 49; Pulse 71; Resp 18; Temp 99.3; Pulse Ox 100% ; ll1 15:30 BP 170 / 46; Pulse 71; Resp 16; Pulse Ox 96% ; ah 16:30 BP 164 / 55; Pulse 65; Resp 16; Pulse Ox 94% ; ah 17:30 BP 170 / 59; Pulse 63; Resp 16; Pulse Ox 94% ; ah 18:19 Temp 98.9; ah 19:34 BP 167 / 63; Pulse 70; Resp 17; Pulse Ox 94% ; ah 21:00 BP 156 / 70; Pulse 64; Resp 17; Pulse Ox 95% ; ll1 ED Course: 14:44 Patient arrived in ED. mr 14:44 Anna Marie Hannah MD is Private Physician. mr 14:59 Anna Marie Glass, RN is Primary Nurse. ah 15:08 Triage completed. ll1 15:09 Arm band placed on Patient placed in an exam room, on a stretcher. ll1 15:14 Francis Avila MD is Attending Physician. rn 15:45 Inserted saline lock: 22 gauge in right antecubital area, using aseptic technique. ah 16:00 Initial lab(s) drawn, by sd, sent to lab. First set of blood cultures drawn Second set ah of blood cultures drawn. 16:30 XRAY Chest (1 view) In Process Unspecified. EDMS 16:30 XRAY Foot LEFT 3 View In Process Unspecified. EDMS 17:14 EKG done, by ED staff, reviewed by Francis Avila MD. ah 17:33 Noel Lucas MD is Hospitalizing Provider. rn 19:35 Patient has correct armband on for positive identification. Placed in gown. Bed in low ah position. Call light in reach. Side rails up X2. Adult w/ patient. Pulse ox on. NIBP on. Door closed. Warm blanket given. 19:37 No provider procedures requiring assistance completed. Patient admitted, IV remains in place. Administered Medications: No medications were administered Outcome: 17:33 Decision to Hospitalize by Provider. rn 19:37 Admitted to ER Hold. Please see [facility] for further documentation. 19:37 Condition: stable 19:37 Instructed on the need for admit. 09/12 06:27 Patient left the ED. mt Signatures: Dispatcher [employer] EDOH Ara Jimenez Roman, MD MD rn Manohar, Anna Marie Calloway mt, RN RN Bentley Lea RN RN [facility]
--- NOTE | 2019-09-12 17:34 | EDPHYS ---
Physician Documentation [facility] Name: Erendira Graham Age: 88 yrs Sex: Female : 1930 Arrival Date: 09/12/2019 Time: 14:44 Bed 14 Private MD: Anna Marie Hannah ED Physician Francis Avila HPI: 09/11 15:29 This 88 yrs old Black Female presents to ER via Wheelchair with complaints of Weakness, rn Foot Pain. 15:29 The patient presents to the emergency department with weakness of the entire body, rn generalized weakness. Onset: The symptoms/episode began/occurred yesterday. Associated signs and symptoms: Pertinent positives: weakness, Pertinent negatives: altered mental status, chills, neck stiffness, seizure, syncope, loss of vision. Severity of symptoms: At their worst the symptoms were moderate in the emergency department the symptoms are unchanged. Current symptoms:. The patient has experienced similar episodes in the past. Family reports began yesterday with generalized weakness, fatigue, mild nausea, no chest pain/cough/abd pain. Slipped getting out of shower yesterday, hurt left foot. No other injury. Missed dialysis today due to weather. No fever at home, 99.3 here. . Historical: - Allergies: 15:09 Karlene; ll1 15:09 Bactrim; ll1 15:09 Ciprofloxacin; ll1 15:09 Demerol; ll1 15:09 PENICILLINS; ll1 15:09 Talwin; ll1 15:09 tequin; ll1 - Home Meds: 22:02 acetaminophen-codeine 300-30 mg Oral tab 1 tab as needed for Pain [Active]; aspirin 81 ah mg Oral TbEC 1 tab once daily [Active]; clonidine HCl 0.3 mg Oral tab 1 tab 2 times per day [Active]; DIALYVITE 800 0.8 mg Oral tab [Active]; docusate sodium 100 mg Oral tab 2 times per day [Active]; doxazosin 8 mg Oral tab twice a day [Active]; hydralazine 100 mg Oral tab 3 times per day [Active]; isosorbide mononitrate 30 mg Oral Tb24 twice a day [Active]; melatonin 5 mg Oral tab nightly [Active]; minoxidil 2.5 mg Oral tab 1 tabs 2 times per day [Active]; nifedipine 90 mg Oral TbER twice a day [Active]; Plavix 75 mg Oral tab 1 tab once daily [Active]; sertraline 50 mg Oral tab 1 tab once daily [Active]; Tums 300 mg (750 mg) Oral chew [Active]; Vitamin D Oral 5000 unit daily [Active]; - PMHx: 15:09 Diabetes - NIDDM; Dialysis; ESRD; CHF; Hypertension; ll1 - PSHx: 15:09 Hysterectomy; Cholecystectomy; ll1 - Immunization history:: Adult Immunizations up to date. - Social history:: Smoking status: Patient denies any tobacco usage or history of. Patient/guardian denies using alcohol, street drugs, tobacco products. - Family history:: not pertinent. - Hospitalizations: : No recent hospitalization is reported. ROS: 15:29 Constitutional: Negative for fever, chills, and weight loss, Eyes: Negative for injury, rn pain, redness, and discharge, Neck: Negative for injury, pain, and swelling, Cardiovascular: Negative for chest pain, palpitations, and edema, Respiratory: Negative for cough, wheezing, and pleuritic chest pain, Abdomen/GI: Negative for abdominal pain, nausea, vomiting, diarrhea, and constipation, Back: Negative for injury and pain, : Negative for injury, bleeding, discharge, and swelling, MS/Extremity: Negative for injury and deformity, Skin: Negative for injury, rash, and discoloration, Neuro: Negative for headache, numbness, tingling, and seizure. Exam: 15:29 Constitutional: This is a well developed, well nourished patient who is somnolent, but rn easily arousable to voice Head/Face: Normocephalic, atraumatic. ENT: Oropharynx with no redness, swelling, or masses, exudates, or evidence of obstruction, uvula midline. Cardiovascular: Regular rate and irregular rhythm. No pulse deficits. Respiratory: Bibasilar crackles. No retractions. Abdomen/GI: Soft, non-tender. Skin: Warm, dry, no cellulitis MS/ Extremity: Pulses equal, no cyanosis. + tenderness left dorsal midfoot, no open wounds Neuro: Awake, GCS 15, oriented to person, place, time, and situation. Cranial nerves II-XII grossly intact. Motor strength 4/5 in all extremities. Sensory grossly intact. Vital Signs: 15:05 BP 138 / 49; Pulse 71; Resp 18; Temp 99.3; Pulse Ox 100% ; ll1 15:30 BP 170 / 46; Pulse 71; Resp 16; Pulse Ox 96% ; ah 16:30 BP 164 / 55; Pulse 65; Resp 16; Pulse Ox 94% ; ah 17:30 BP 170 / 59; Pulse 63; Resp 16; Pulse Ox 94% ; ah 18:19 Temp 98.9; ah 19:34 BP 167 / 63; Pulse 70; Resp 17; Pulse Ox 94% ; ah 21:00 BP 156 / 70; Pulse 64; Resp 17; Pulse Ox 95% ; ll1 MDM: 15:14 Patient medically screened. rn 17:31 Data reviewed: vital signs, nurses notes, lab test result(s), EKG, radiologic studies, rn plain films, and as a result, I will admit patient. Counseling: I had a detailed discussion with the patient and/or guardian regarding: the historical points, exam findings, and any diagnostic results supporting the discharge/admit diagnosis, lab results, radiology results, the need for further work-up and treatment in the hospital. Response to treatment: There is no appreciated change of the patient's symptoms at this time, and as a result, I will admit patient. Admission orders: after a detailed discussion of the patient's condition and case, the admit orders are written by me. ED course: Pt without much clinical change, daughter states very weak, not comfortable with her going home, no acute fracture on foot, + pulmonary edema and ESRD labs but nothing out of the ordinary, unknown reason for somnolence/weakness, will send COVID test, admit to Dr. Lucas, and possible dialysis tomorrow. . 09/11 15:24 Order name: CBC with Diff; Complete Time: 17:04 rn 09/11 15:24 Order name: Basic Metabolic Panel; Complete Time: 17: rn 09/11 15:24 Order name: Blood Culture Adult (2) rn 09/11 15:24 Order name: Procalcitonin; Complete Time: 17:15 rn 09/11 15:24 Order name: Flu; Complete Time: 17: rn 09/11 15:27 Order name: Hepatic Function; Complete Time: 17: rn 09/11 15:24 Order name: IV Start; Complete Time: 17:22 rn 09/11 15:24 Order name: XRAY Chest (1 view); Complete Time: 17:04 rn 09/11 15:24 Order name: XRAY Foot LEFT 3 View; Complete Time: 17:15 rn 09/11 15:27 Order name: Lipase; Complete Time: 17:04 rn 09/11 16:00 Order name: BNP; Complete Time: 17:04 rn 09/11 16:00 Order name: EKG; Complete Time: 16:01 rn 09/11 17:28 Order name: COVID-19; Complete Time: 19:02 rn 09/11 21:15 Order name: Glucose, Ancillary Testing EDMS 09/11 15:27 Order name: Labs collected and sent; Complete Time: 17:22 rn 09/11 16:00 Order name: EKG - Nurse/Tech; Complete Time: 17:14 rn Administered Medications: No medications were administered Disposition: 09/12/19 17:33 Hospitalization ordered by Noel Lucas for Observation. Preliminary diagnosis are Weakness, Malaise and fatigue, End stage renal disease. - Bed requested for Telemetry/MedSurg (observation). - Status is Observation. mt - Condition is Stable. - Problem is new. - Symptoms are unchanged. Signatures: Dispatcher [employer] EDMS Francis Avila MD MD rn Lasagna, Tonya, RN RN tl1 Arely Villela mt, Amy, RN RN Bentley Lea, RN RN ll1 Corrections: (The following items were deleted from the chart) 18:33 15:29 Constitutional: This is a well developed, well nourished patient who is rn somnolent, but easily arousable to voice Head/Face: Normocephalic, atraumatic. ENT: Oropharynx with no redness, swelling, or masses, exudates, or evidence of obstruction, uvula midline. Cardiovascular: Regular rate and rhythm. No pulse deficits. Respiratory: Bibasilar crackles. No retractions. Abdomen/GI: Soft, non-tender. Skin: Warm, dry, no cellulitis MS/ Extremity: Pulses equal, no cyanosis. + tenderness left dorsal midfoot, no open wounds Neuro: Awake, GCS 15, oriented to person, place, time, and situation. Cranial nerves II-XII grossly intact. Motor strength 4/5 in all extremities. Sensory grossly intact. rn 19:34 17:33 Hospitalization Ordered by oNel Lucas MD for Observation. Preliminary diagnosis tl1 is Weakness; Malaise and fatigue; End stage renal disease. Bed requested for Telemetry/MedSurg (observation). Status is Observation. Condition is Stable. Problem is new. Symptoms are unchanged. rn 09/12 05:59 0624 19:34 09/12/2019 17:33 Hospitalization Ordered by Noel Lucas MD for tl1 Observation. Preliminary diagnosis is Weakness; Malaise and fatigue; End stage renal disease. Bed requested for [facility] ER HOLD. Status is Observation. Condition is Stable. Problem is new. Symptoms are unchanged. tl1 09/12 06:27 05:59 09/12/2019 17:33 Hospitalization Ordered by Noel Lucas MD for Observation. mt Preliminary diagnosis is Weakness; Malaise and fatigue; End stage renal disease. Bed requested for Telemetry/MedSurg (observation). Status is Observation. Condition is Stable. Problem is new. Symptoms are unchanged. tl1
[2019-09-12] MEDS ORDERED: D50W 25 GM/50 ML SYRINGE/VIAL IV PRN (21:56)
[2019-09-12] MEDS ORDERED: ONDANSETRON 4 MG/2 ML VIAL IV PRN (21:56)
[2019-09-12] MEDS ORDERED: GLUCAGON 1 MG/VIAL IM PRN (21:56)
[2019-09-12] MEDS: INSULIN -REGULAR HUMAN 50 UNIT/0.5 ML ML SQ SCH (21:56)
[2019-09-12 22:36] VITALS: BMI 32.8
--- NOTE | 2019-09-13 02:49 | HP ---
Date of Admission: 09/12/2019 Chief Complaint: Generalized weakness, fall. History Of Present Illness: Patient is an 88-year-old female with past medical history of end-stage renal disease, on dialysis, diabetes, congestive heart failure, hypertension, comes in with generaliz ed weakness started yesterday. Does not report any fever, chills, neck deafness. No cough or conges tion. Patient was tested for COVID 1 month ago in [facility], which was negative. Patient did have a f all and she was unable to get her leg completely out of the shower and slipped, hurt her left foot. Patient was unable to go to her dialysis today due to the weather and therefore comes into the ER for further evaluation. Her symptoms are constant, moderate, progressively worsening. In the ER, her v ital signs were stable. She had a low-grade temperature 99.3. She was tested for a COVID and which was sent off. The patient's lab work revealed elevated BNP of 46,000, creatinine was 5.7, white bloo d cell count 4.1. Electrolytes were within normal limits. Patient was then referred for admission. When seen in the ER, she was awake, alert, oriented x3, in some mild distress. Past Medical History: End-stage renal disease, on hemodialysis, depression, coronary artery disease, hypertension, hyperlipidemia, aortic stenosis, renal artery stenosis, diabetes, congestive heart tad lure, end-stage renal disease. Surgical History: Stent placement, gallbladder removed, right kidney stent placement, cataract repai r bilaterally, left carotid artery repair, left AV fistula, hysterectomy, appendectomy. Allergies: TO CIPRO, FEXOFENADINE, GATIFLOXACIN, MEPERIDINE, PENICILLIN, PENTAZOCINE AND BACTRIM. Medications: List reviewed. Social History: Patient denies any tobacco use, alcohol use, or illicit drug use. Lives at home. U ses a walker. Does need assistance with activities of daily living. Family History: Sister had heart disease. Brother had heart disease and cancer. Review of Systems: Ten-point system reviewed, negative except as per HPI. Physical Examination: Vital Signs: Temperature 99.3, heart rate 71, blood pressure 138/49, respirations 18, O2 is 100% on room air. General: Awake, alert, oriented x3. Elderly female, in some mild distress. HEENT: Normocephalic, atraumatic. PERRLA, EOMI. Oropharynx is not examined due to patient being in vestigated for COVID, mask is on. Neck: Supple. Trachea midline. CV: S1, S2. Peripheral pulses present. Respiratory: Diminished breath sounds, crackles present. No wheezing or stridor. Gastrointestinal: Abdomen is soft, nontender, nondistended. Positive bowel sounds. Extremities: No clubbing, cyanosis. Patient does have pedal edema. Neuro: Cranial nerves 2 through 12 intact grossly. No focal neurological deficit. Speech is normal . Skin: No rashes. Normal skin turgor. Psych: Mood is okay. Affect is full. Insight and judgment are fair. Laboratory Data: Sodium 135, potassium 3.6, chloride 97, CO2 32, BUN 41, creatinine 5.7, glucose 90, calcium 8.8. BNP 46,378. AST 102, ALT 31, albumin 2.7, lipase 43. Procalcitonin 0.21. WBC 4.1, H and H 12.2 and 38.1, platelets 132, neutrophils 74%. Influenza screen negative. Imaging Studies: Chest x-ray shows heart vasculature and lung markings overall mildly prominent. Fi ndings suggest mild failure or volume overload, less pronounced than seen on August 19. Foot x-ray sh ows osteopenic and degenerative changes present along with suspected chronic stress fracture changes with the second, fourth metatarsals, acute fractures not confirmed. Assessment And Plan: 88-year-old female with 1.Generalized weakness, unclear etiology, may be due to missed dialysis. Patient has low-grade feve r. We will swab for Coronavirus disease. 2.Pulmonary edema likely due to missed dialysis. Dr. Guardado has been contacted. She will be dialy zed today. 3.End-stage renal disease, on hemodialysis. Missed dialysis for today due to bad weather. We will continue with treatment. 4.Anemia of chronic disease. Hemoglobin stable. We will continue to monitor. Transfuse as needed for hemoglobin less than 7. 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 We will start on sliding scale insulin. M onitor blood glucose levels. 6.Essential hypertension, stable. 7.Coronary artery disease tejon artery and tejon heart status post stent without angina, stable. 8.History of aortic stenosis. 9.Mixed hyperlipidemia. We will continue statin. 10.Renal artery stenosis status post stent. 11.Congestive heart failure, chronic, diastolic dysfunction. 12.Deep venous thrombosis prophylaxis, patient is already on chronic anticoagulation. We will resum e once home medications have been reconciled. PLAN: Admit patient to Med-Surg, place as observation. Follow up on COVID test. /MELISSA Voice ID: [id number]
--- NOTE | 2019-09-13 06:31 | EKG ---
Test Date: 2019-09-12 Test Time: 17:07:19 Computer System Specialist: ROBINA MEASUREMENT RESULTS: Intervals: Rate: 81 [place]: QRSD: 84 QT: 402 QTc: 466 [place]: P: [place]: QRS: 122 T: 19 INTERPRETIVE STATEMENTS: Atrial fibrillation with premature ventricular or aberrantly conducted complexes Right axis deviation Septal infarct, age undetermined Abnormal ECG Compared to ECG 08/20/2019 15:25:38 Ventricular premature complex(es) now present Right-axis deviation now present Sinus tachycardia no longer present Atrial premature complex(es) no longer present First degree AV block no longer present Aberrant conduction of supraventricular beat(s) no longer present Myocardial infarct finding still present Electronically Signed On 09-13-19 06:30:28 CDT by Juan Pablo Leroy
[2019-09-13] MEDS: INSULIN -REGULAR HUMAN 50 UNIT/0.5 ML ML SQ SCH ×4 (07:30→21:00)
[2019-09-13] MEDS: ACETAMINOPHEN 500 MG TAB PO PRN (09:11)
[2019-09-13 12:03] LABS: Absolute Lymphocytes (CBC) 0.5 K/uL (0.7-4.9); Basophils % 0.6 % (0-1.3); Hematocrit 40.9 % (36.0-45.0); Lymphocytes % 11.5 % (15.3-44.8); MPV 8.6 fL (7.6-11.3); RBC Red Blood Cell Count 4.35 M/uL (3.86-4.86)
[2019-09-13] MEDS ORDERED: TRAMADOL HCL 50 MG TAB PO PRN (12:04)
[2019-09-13] MEDS ORDERED: ACETAMINOPHEN 500 MG TAB PO PRN (12:04)
[2019-09-13] MEDS ORDERED: ALPRAZOLAM 0.25 MG TABLET PO PRN (12:04)
[2019-09-13] MEDS ORDERED: HOME MED 1 EA UNK (Ramipril [Altace] 10 MG) PO PRN (12:04)
[2019-09-13] MEDS: DOXAZOSIN 4 MG TAB PO SCH ×2 (12:25→20:43)
[2019-09-13 12:30] LABS: Albumin 2.9 g/dL (3.4-5.0); Bilirubin Total 0.5 mg/dL (0.2-1.0); Magnesium 2.4 mg/dL (1.8-2.4); Phosphorus 1.7 mg/dL (2.5-4.9); Potassium 3.9 mmol/L (3.5-5.1); Protein, Total 7.1 g/dL (6.4-8.2)
[2019-09-13] MEDS ORDERED: LABETALOL HCL 100 MG/20 ML IV ONE (13:00)
--- NOTE | 2019-09-13 20:40 | PN ---
Date of Progress Note: 09/13/2019 Subjective: Patient is seen and examined. Chart reviewed and case discussed with RN. Patient does not report any acute events overnight. Blood pressure still not well controlled. Daughter at the be dside. COVID screen negative. Patient made aware of the test result. Still complains of generalize d weakness. Medications: List reviewed. Physical Examination: Vital Signs: Temperature 98.5, heart rate 72, blood pressure 196/62, respirations 16, O2 96% on room air. General: Awake, alert, oriented x3. Elderly female, obese. BMI 32 in some mild distress ill-appear ing female. CV: S1, S2. Regular rate and rhythm. Peripheral pulses present. Respiratory: Slightly diminished breath sounds, crackles heard. No wheezing or stridor. Gastrointestinal: Abdomen is soft, nontender, nondistended. Positive bowel sounds. Extremities: No clubbing, cyanosis. Trace pedal edema. Neurologic: Nonfocal. Laboratory Data: COVID screen negative. Influenza screen negative. Sodium 139, potassium 3.9, chlo ride 106, CO2 of 26, BUN 20, creatinine 3.94, glucose 93, calcium 9, phosphorus 1.7, magnesium 2.4, A ST 106, ALT 37, albumin 2.9. WBC 4.2, H and H 13 and 40.9, platelets 124, neutrophils 81%. Assessment And Plan: 88-year-old female with 1.Generalized weakness. We will consult Physical therapy. Patient normally does ambulate with a wa lker. Coronavirus disease screen is negative. 2.Pulmonary edema secondary to missed dialysis. Patient was dialyzed yesterday, improved clinically . 3.End-stage renal disease, on hemodialysis. Appreciate Dr. Guardado's input. Continue with dialysis as scheduled, was dialyzed yesterday. 4.Anemia of chronic disease. Hemoglobin stable. We will continue to monitor, transfuse for hemoglo bin less than 7. 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 We will continue sliding scale insulin. M onitor blood glucose levels. 6.Essential hypertension, not well controlled. We will adjust medications. 7.Coronary artery disease, circle artery, circle heart, status post stent without angina, stable. 8.History of aortic stenosis. 9.Mixed hyperlipidemia, will continue statin. 10.Renal artery stenosis status post stent, stable. 11.Congestive heart failure, chronic diastolic dysfunction, stable. 12.Deep venous thrombosis prophylaxis with the patient on chronic anticoagulation with aspirin and P lavix. We will add heparin renally dosed. PLAN: We will adjust blood pressure medications. Use hydralazine p.r.n. [facility] PT evaluation. Patient may need intermediate facility versus inpatient rehab. /NAIDAL Voice ID: [id number] Report ID: [id number]
[2019-09-13] MEDS: NIFEDIPINE XL 90 MG TABLET PO SCH (20:42)
[2019-09-13] MEDS ORDERED: SERTRALINE HCL 50 MG TAB PO SCH (21:00)
[2019-09-13] MEDS ORDERED: ramipriL 5 MG CAP PO SCH (21:00)
[2019-09-13] MEDS ORDERED: MELATONIN 5 MG TABLET PO SCH (21:00)
--- NOTE | 2019-09-13 21:20 | P.CNS ---
Date of Consult: 09/13/19 Reason for Consult: ESRD Requesting Physician: Noel Lucas Chief Complaint: Dyspnea History of Present Illness: History Of Present Illness: Patient is an 88-year-old female with past medical history of end-stage renal disease, on dialysis, diabetes, congestive heart failure, hypertension, comes in with generalized weakness started yesterday. Does not report any fever, chills, neck deafness. No cough or congestion. P atient was tested for COVID 1 month ago in [facility], which was negative. Patient did have a fall and she was unable to get her leg completely out of the shower and slipped, hurt her left foot. Patient was unable to go to her dialysis today due to the weather and therefore comes into the ER for further evaluation. Her symptoms are constant, moderate, progressively worsening. In the ER, her vital signs were stable. 15:29 This 88 yrs old Black Female presents to ER via Wheelchair with complaints of Weakness, rn Foot Pain. 15:29 The patient presents to the emergency department with weakness of the entire body, rn generalized weakness. Onset: The symptoms/episode began/occurred yesterday. Associated signs and symptoms: Pertinent positives: weakness, Pertinent negatives: altered mental status, chills, neck stiffness, seizure, syncope, loss of vision. Severity of symptoms: At their worst the symptoms were moderate in the emergency department the symptoms are unchanged. Current symptoms:. The patient has experienced similar episodes in the past. Family reports began yesterday with generalized weakness, fatigue, mild nausea, no chest pain/cough/abd pain. Slipped getting out of shower yesterday, hurt left foot. No other injury. Missed dialysis today due to weather. No fever at home, 99.3 here. Allergies ciprofloxacin Allergy (Verified 02/15/19 22:51) Rash fexofenadine Allergy (Verified 02/15/19 22:51) Rash gatifloxacin Allergy (Verified 02/15/19 22:51) Hives/Rash meperidine [From Demerol] Allergy (Verified 08/05/19 00:13) Nausea/Vomiting Penicillins Allergy (Verified 02/15/19 22:51) Hives/Rash pentazocine [From Talwin] Allergy (Verified 02/15/19 22:51) Unknown sulfamethoxazole [From Bactrim] Allergy (Verified 08/05/19 00:13) Hives trimethoprim [From Bactrim] Allergy (Verified 08/05/19 00:13) Hives Home medications list reviewed: Yes Home Medications: Aspirin 81 mg PO DAILY 08/05/19 Cholecalciferol (Vitamin D3) [Vitamin D 5,000 IU Cap*] 1 cap PO BEDTIME 08/05/19 Clopidogrel Bisulfate [Plavix*] 75 mg PO DAILY 08/05/19 Cranberry Conc/Ascorbic Acid [Cranberry Plus Vitamin C Sftgl] 1 cap PO BID 08/05/19 Doxazosin Mesylate 8 mg PO BID 08/05/19 Folic Acid/Vit B Complex and C [Dialyvite 800 Chewable Wafer] 800 mg PO BEDTIME 08/05/19 Isosorbide Mononitrate [Isosorbide Mononitrate ER] 3 tab PO DAILY 08/05/19 Megestrol [Megace*] 10 ml PO BREAKFAST 08/05/19 NIFEdipine [Nifedipine ER] 90 mg PO BID 08/05/19 Ramipril [Altace] 10 mg PO BEDTIME 08/05/19 Sertraline [Zoloft*] 50 mg PO BEDTIME 08/05/19 Acetaminophen [Tylenol Extra Strength] 500 mg PO Q6HR PRN 08/19/19 Docusate [Colace Cap*] 100 mg PO DAILY 08/19/19 Melatonin 5 mg PO BEDTIME 08/19/19 Tramadol HCl [Ultram] 50 mg PO Q6HR PRN 08/19/19 ALPRAZolam [Xanax*] 1 tab PO Q6H PRN 09/13/19 Hydralazine HCl [Apresoline] 100 mg PO DAILY 09/13/19 - Past Medical/Surgical History Diabetic: Yes -: DEPRESSION -: CHRONIC KIDNEY DISEASE ON HD -: CAD -: MALIGNANT HYPERTENSION -: HYPERLIPIDEMIA -: AORTIC STENOSIS -: RENAL ARTERY STENOSIS -: DM -: CHF -: ESRD -: STENT PLACEMENT -: gall bladder removed -: R kidney stent placement -: cataract bilateral repair -: left carotid artery repair. -: left AVF -: hysterectomy -: appendectomy - Family History Sister Medical History: Heart disease Brother Medical History: Heart disease, Cancer - Social History Smoking Status: Unknown if ever smoked Alcohol use: No CD- Drugs: Yes Caffeine use: Yes Review of Systems 10-point ROS is otherwise unremarkable General: Weakness Respiratory: SOB with Excertion Neurological: Weakness Physical Examination Temp Pulse Resp BP Pulse Ox 99.1 F 79 16 184/63 H 95 09/13/19 16:00 09/13/19 16:00 09/13/19 16:00 09/13/19 16:09/13/19 16:00 General: Oriented x3, Cooperative HEENT: Atraumatic Neck: Supple Respiratory: Clear to auscultation bilaterally Cardiovascular: No edema, Regular rate/rhythm Gastrointestinal: Soft and benign, Non-distended Musculoskeletal: No clubbing, No contractures Integumentary: No rashes, No cyanosis Neurological: Normal speech Blood work reviewed in the chart. Imagings Data: EXAM DESCRIPTION: RAD - Chest Single View - 09/12/2019 4:29 pm CLINICAL HISTORY: ESRD, shortness of breath COMPARISON: Portable August 20, 2019 portable August 19, 2019 TECHNIQUE: AP portable chest image was obtained 09/12/2019 4:29 pm . FINDINGS: No new mass or consolidation. Interstitial opacification is evident but less pronounced than seen previously. Heart size remains prominent peer mild vascular engorgement seen. No measurable pleural effusion and no pneumothorax. No acute bony abnormality seen. No acute aortic findings suspected. IMPRESSION: Heart, vasculature and lung markings are all mildly prominent. Findings suggest a mild failure/ volume overload. This is less pronounced than seen on August 19 imaging. EXAM DESCRIPTION: RAD - Foot Left 3 View - 09/12/2019 4:29 pm CLINICAL HISTORY: PAIN, left foot trauma, no specific site of pain note COMPARISON: No comparisons FINDINGS: No acute fracture identifiable. No dislocation or periosteal reaction. Mineralized periosteal thickening noted along the shafts of the third and fourth metatarsals and to a lesser degree proximal shaft second metatarsal. This is probably reactive change from stress fracture. Patient's pain is apparently acute onset from trauma. These periosteal changes are not likely of acute clinical significance. Patient has osteopenic change throughout the foot. Moderately advanced degenerative change present at the first MTP joint. IP joint degenerative changes are mild. Mild degenerative changes are present in the tarsal bones. A moderate-sized plantar spur is present. Distal foot soft tissue swelling is present. No air or foreign body. IMPRESSION: Osteopenic and degenerative changes are present along with suspect ed chronic stress fracture changes to the second- fourth metatarsals. An acute fracture is not confirmed. Conclusions/Impression: A/ ESRD on HD HTN with CKD/ CHF. Diastolic CHF, chronic. DM II with CKD. Moderate malnutrition. Anemia in CKD. TALIA/ Secondary HyperPTH. HypoPO4. P/ Continue current POC and Medications. Acute HD as ordered. Next HD on Tuesday. Restart home medications as indicated. Renal/ Low sodium diet. No NSAIDs. AM labs. Daily weight. Thank you kindly for the consultation. Case reviewed with Dr. Lucas.
[2019-09-14] MEDS: ACETAMINOPHEN 500 MG TAB PO PRN ×3 (00:20→09:37)
[2019-09-14] MEDS ORDERED: HYDRALAZINE HCL 20 MG/ML VIAL IV ONE (00:43)
[2019-09-14 05:24] VITALS: TEMP 98.5
[2019-09-14 05:34] LABS: Absolute Lymphocytes (CBC) 0.7 K/uL (0.7-4.9); Basophils % 0.5 % (0-1.3); Hematocrit 40.6 % (36.0-45.0); Lymphocytes % 17.1 % (15.3-44.8); MPV 8.4 fL (7.6-11.3); RBC Red Blood Cell Count 4.34 M/uL (3.86-4.86)
[2019-09-14 05:46] LABS: Phosphorus 2.3 mg/dL (2.5-4.9); Potassium 4.2 mmol/L (3.5-5.1); Uric Acid 3.9 mg/dL (2.6-6.0)
[2019-09-14] MEDS: INSULIN -REGULAR HUMAN 50 UNIT/0.5 ML ML SQ SCH ×2 (07:30→11:30)
[2019-09-14] MEDS ORDERED: MEGESTROL 400 MG/10 ML UCUP PO SCH (08:00)
[2019-09-14] MEDS: DOXAZOSIN 4 MG TAB PO SCH (08:30)
[2019-09-14] MEDS: NIFEDIPINE XL 90 MG TABLET PO SCH (08:30)
[2019-09-14] MEDS ORDERED: CLOPIDOGREL 75 MG TABLET PO SCH (09:00)
[2019-09-14] MEDS ORDERED: ASPIRIN 81 MG CHEWABLE TABLET PO SCH (09:00)
[2019-09-14] MEDS ORDERED: NEPRO SHAKE 237 ML CAN PO SCH (09:00)
[2019-09-14] MEDS ORDERED: ISOSORBIDE MONO SR 30 MG TAB PO SCH (09:00)
[2019-09-14] MEDS ORDERED: HYDRALAZINE HCL 25 MG TABLET PO SCH (09:00)
[2019-09-14 13:48] VITALS: BP 155/72
[2019-09-14 14:39] VITALS: O2SAT 99
--- NOTE | 2019-09-14 18:22 | PN ---
Date of Progress Note: 09/14/2019 Subjective: Patient seen and examined. Chart reviewed and case discussed with RN. Patient has not worked with Physical Therapy yet. Daughter wanting the patient to go to inpatient rehab, does not pr efer SNF. Medications: List reviewed. Physical Examination: Vital Signs: Temperature 98.5, heart rate 79, blood pressure 168/80, respirations 18, and O2 97% on room air. General: Awake, alert, oriented x3. Elderly female, obese, not in any acute distress. CV: S1, S2. Peripheral pulses weak. Respiratory: Diminished breath sounds at the bases. No wheezing or stridor. Gastrointestinal: Abdomen is soft, nontender, nondistended. Positive bowel sounds. Extremities: No clubbing, cyanosis, or edema. Neurologic: Nonfocal. Patient does have generalized weakness. Laboratory Data: Sodium 139, potassium 4.2, chloride 105, CO2 of 26, BUN 25, creatinine 4.53, calciu m 8.2, phosphorus 2.3. WBC 4, H and H 12.9 and 40.6, platelets 118, neutrophils 76%. Blood cultures , no growth to date. Assessment: 88-year-old female with; 1.Generalized weakness. Awaiting PT evaluation. Normally ambulates with walker. 2.Pulmonary edema secondary to missed dialysis, now improved. Continue with dialysis as scheduled. 3.End-stage renal disease, on hemodialysis. Appreciate Dr. Guardado's input. Continue dialysis. 4.Anemia of chronic disease. Hemoglobin is stable. We will continue to monitor. Transfuse as need ed. 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 Continue sliding scale insulin. Monitor b lood glucose levels. 6.Essential hypertension, stable. Use hydralazine p.r.n. 7.Coronary artery disease, [place] artery, [place] heart, status post stent without angina stable. 8.History of aortic stenosis, stable. 9.Hyperlipidemia. We will continue statin. 10.Renal artery stenosis, status post stent. Stable. 11.Chronic diastolic heart failure, stable. We will monitor I's and O's, free fluid restriction. C ontinue CHF guidelines. 12.Deep venous thrombosis prophylaxis. Heparin renally dosed with dialysis. Plan: Pending PT evaluation, patient may need inpatient rehab versus [facility] facility; [facility]abelle luis, family is not too keen on [facility] facility placement. Alternative may be home health. /MELISSA Voice ID: [id number] Report ID: [id number]
--- NOTE | 2019-09-14 20:10 | P.PN ---
Date of Service: 09/14/19 Vital Signs Temp Pulse Resp BP Pulse Ox 98.5 F 78 18 155/72 H 100 09/14/19 12:35 09/14/19 13:47 09/14/19 12:35 09/14/19 13:47 09/14/19 12:35 Microbiology Results 09/12/19 16:00 Blood - Blood Aerobic Blood Culture - Preliminary No growth in 24 hours. 09/12/19 16:00 Blood - Blood Anaerobic Blood Culture - Preliminary No growth in 24 hours. 09/12/19 15:45 Blood - Blood Aerobic Blood Culture - Preliminary No growth in 24 hours. 09/12/19 15:45 Blood - Blood Anaerobic Blood Culture - Preliminary No growth in 24 hours. 09/12/19 15:54 Nasopharnyx Influenza Type A Antigen Screen - Final 09/12/19 15:54 Nasopharnyx Influenza Type B Antigen Screen - Final Assessment/ Plan: Nephrology CPS stable without CP or SOB. Feeling better. No acute events overnight. Vitals, medications, blood work and imaging reviewed in the chart. General: Oriented x3, Cooperative HEENT: Atraumatic Neck: Supple Respiratory: Clear to auscultation bilaterally Cardiovascular: No edema, Regular rate/rhythm Gastrointestinal: Soft and benign, Non-distended Musculoskeletal: No clubbing, No contractures Integumentary: No rashes, No cyanosis Neurological: Normal speech Blood work reviewed in the chart. Imagings Data: EXAM DESCRIPTION: RAD - Chest Single View - 09/12/2019 4:29 pm CLINICAL HISTORY: ESRD, shortness of breath COMPARISON: Portable August 20, 2019 portable August 19, 2019 TECHNIQUE: AP portable chest image was obtained 09/12/2019 4:29 pm . FINDINGS: No new mass or consolidation. Interstitial opacification is evident but less pronounced than seen previously. Heart size remains prominent peer mild vascular engorgement seen. No measurable pleural effusion and no pneumothorax. No acute bony abnormality seen. No acute aortic findings suspected. IMPRESSION: Heart, vasculature and lung markings are all mildly prominent. Findings suggest a mild failure/ volume overload. This is less pronounced than seen on August 19 imaging. EXAM DESCRIPTION: RAD - Foot Left 3 View - 09/12/2019 4:29 pm CLINICAL HISTORY: PAIN, left foot trauma, no specific site of pain note COMPARISON: No comparisons FINDINGS: No acute fracture identifiable. No dislocation or periosteal reaction. Mineralized periosteal thickening noted along the shafts of the third and fourth metatarsals and to a lesser degree proximal shaft second metatarsal. This is probably reactive change from stress fracture. Patient's pain is apparently acute onset from trauma. These periosteal changes are not likely of acute clinical significance. Patient has osteopenic change throughout the foot. Moderately advanced degenerative change present at the first MTP joint. IP joint degenerative changes are mild. Mild degenerative changes are present in the tarsal bones. A moderate-sized plantar spur is present. Distal foot soft tissue swelling is present. No air or foreign body. IMPRESSION: Osteopenic and degenerative changes are present along with suspected chronic stress fracture changes to the second- fourth metatarsals. An acute fracture is not confirmed. Conclusions/Impression: A/ ESRD on HD HTN with CKD/ CHF. Diastolic CHF, chronic. DM II with CKD. Moderate malnutrition. Anemia in CKD. TALIA/ Secondary HyperPTH. HypoPO4. P/ Continue current POC and Medications. Acute HD today. Renal/ Low sodium diet. PT as tolerated. No NSAIDs. AM labs. Daily weight.
--- NOTE | 2019-09-15 02:09 | DS ---
Date of Discharge: 09/14/2019 Consulting: Dr. Guardado with Nephrology. Admitting Diagnoses: 1.Generalized weakness. 2.Pulmonary edema. 3.End-stage renal disease, on hemodialysis. 4.Anemia of chronic disease. 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 6.Essential hypertension. 7.Coronary artery disease [place] artery and [place] heart, status post stent without angina. 8.History of aortic stenosis. 9.Mixed hyperlipidemia. 10.Renal artery stenosis. 11.Congestive heart failure, chronic diastolic dysfunction. Hospital Course: Patient is an 88-year-old female with past medical history of end-stage renal disea se on dialysis, diabetes, hypertension, comes in with generalized weakness and fall. Patient was hav ing some pulmonary edema, due to missed dialysis, her blood pressure was elevated. She was started o n dialysis Dr. Guardado was consulted. She did well over the course of the hospital stay. Repeat COV ID screen was negative. Blood cultures were negative. Influenza screen was negative. She did have some pain in her foot from fall, which showed some osteopenia and chronic stress fracture in the 2nd to 4th metatarsals. No acute fracture was seen. She will likely need a fracture boot. Patient's ch est x-ray was clear. She was evaluated by Physical therapy. Initially, patient and family were eage r to go to inpatient rehab. However, the patient then declined going to any facility including rehab or [facility] facility, wanted to go home with home health. This was set up and patient was di scharged home with home health in a stable condition. Activity: Fall precautions. Medications: As per medication reconciliation list. Diet: Renal. Followup: Follow up with primary care physician in 2-3 days. Follow up with small engine technician, Dr. Schwarz co in 2 weeks. Return to ER for worsening condition. Physical Exam Findings: Please see progress note dictated on day of discharge. /MELISSA Voice ID: [id number] Report ID: [id number]
== END 2019-09-14 15:07 | disposition home health service (06) ==
LOC: ER 14:41 → ERHOLD 18:06 → 4TH 09-13 06:13
PROVIDERS: ADMIT Family Medicine; ATTEND Family Medicine
DX: R53.1 Weakness (principal); R50.9 Fever, unspecified; Z20.828 Contact with and (suspected) exposure to other viral communicable diseases; J81.1 Chronic pulmonary edema; I13.2 Hypertensive heart and chronic kidney disease with heart failure and with stage 5 chronic kidney disease, or end stage renal disease; E11.22 Type 2 diabetes mellitus with diabetic chronic kidney disease; N18.6 End stage renal disease; I50.32 Chronic diastolic (congestive) heart failure; Z99.2 Dependence on renal dialysis; I25.10 Atherosclerotic heart disease of native coronary artery without angina pectoris; M79.672 Pain in left foot; E78.2 Mixed hyperlipidemia; M85.872 Other specified disorders of bone density and structure, left ankle and foot; I15.9 Secondary hypertension, unspecified; D63.1 Anemia in chronic kidney disease; E44.0 Moderate protein-calorie malnutrition; F32.9 Major depressive disorder, single episode, unspecified; I48.91 Unspecified atrial fibrillation; R94.31 Abnormal electrocardiogram [ECG] [EKG]; Z79.82 Long term (current) use of aspirin; Z79.02 Long term (current) use of antithrombotics/antiplatelets; Z79.899 Other long term (current) drug therapy; Z95.5 Presence of coronary angioplasty implant and graft; W18.2XXA Fall in (into) shower or empty bathtub, initial encounter; Y93.E1 Activity, personal bathing and showering
CPT/HCPCS: 93005; 87040 ×2; 85025 ×3; 80048 ×2; 36415 ×2; 83735; 84100 ×2; 82947 ×6; 80076; 84550; 83690; 80053; 84145; 83880; 87804 ×2; 71045; 73630; 97116; 97161; 97530; 94760 ×4; 99285; U0002; J0360; J1644 ×2; G0257 ×2; G0378 ×4

== ENCOUNTER 2019-10-11 12:18 | Inpatient (IN) | payer OTHER ==
--- OUTSIDE RECORDS SUMMARY | 2019-10-11 12:33 | XMS REPORT | Clinical Summary ---
:1930 Author Organization [facility] Address [address] [place] [address] Care Team Providers Name Role Phone Unavailable [...] Encounters Date Type Specialty Care Team Description 09/12/2019 Lab Requisition Lab 02/17/2019 Travel 02/16/2019 - Hospital Encounter General Internal Rosie, Acute encephalopathy (Primary Dx); 02/19/2019 Medicine Debby Johns MD Acute ischemic stroke (HCC); Lisa Choi, Anemia of ch ronic disease; ESRD on hemodialysis ([facility]); Fabiola Pratt Essential hype rtension MD Poppy after 10/10/2018 Social History Tobacco Use Types Packs/Day Years [...] Taken Blood Pressure 145/67 02/19/2019 11:41 AM SAFETY EQUIPMENT TESTING SPECIALIST Pulse 79 02/19/2019 11:41 AM SAFETY EQUIPMENT TESTING SPECIALIST Temperature 36.9 C (98.5 F) 02/19/2019 11:41 AM SAFETY EQUIPMENT TESTING SPECIALIST Respiratory Rate 20 02/19/2019 11:41 AM SAFETY EQUIPMENT TESTING SPECIALIST Oxygen Saturation 92% 02/19/2019 11:41 AM SAFETY EQUIPMENT TESTING SPECIALIST Inhaled Oxygen Concentration - - Weight 66.8 kg (147 lb 4.3 oz) 02/19/2019 10:57 AM SAFETY EQUIPMENT TESTING SPECIALIST Height 165.1 cm (5' 5") 02/16/2019 4:00 PM SAFETY EQUIPMENT TESTING SPECIALIST Body Mass Index 24.51 02/19/2019 10:57 AM SAFETY EQUIPMENT TESTING SPECIALIST Plan of Treatment Not on file Procedures Procedure Name Priority Date/Time Associated Comments Diagnosis SARS-COV2/RT-PCR ([facility] Routine 09/12/2019 6:16 R esults for this & REF LABS) PM CDT procedure are i n the results section. RHYTHM STRIP - SCAN 02/22/2019 8:50 AM SAFETY EQUIPMENT TESTING SPECIALIST POCT-GLUCOSE METER Routine 02/19/2019 11:58 Resul ts for this AM SAFETY EQUIPMENT TESTING SPECIALIST procedure are i n the results section. HEMODIALYSIS INPATIENT Routine 02/19/2019 7:05 AM SAFETY EQUIPMENT TESTING SPECIALIST CBC W/PLT COUNT & AUTO Routine 02/19/2019 4:24 R esults for this DIFFERENTIAL AM SAFETY EQUIPMENT TESTING SPECIALIST procedure are i n the results section. CBC W/PLT COUNT & AUTO Routine 02/19/2019 4:24 R esults for this DIFFERENTIAL AM SAFETY EQUIPMENT TESTING SPECIALIST procedure are i n the results section. POCT-GLUCOSE METER Routine 02/18/2019 8:49 Resul ts for this PM SAFETY EQUIPMENT TESTING SPECIALIST procedure are i n the results section. POCT-GLUCOSE METER Routine 02/18/2019 5:11 Resul ts for this PM SAFETY EQUIPMENT TESTING SPECIALIST procedure are i n the results section. POCT-GLUCOSE METER Routine 02/18/2019 9:01 Resul ts for this AM SAFETY EQUIPMENT TESTING SPECIALIST procedure are i n the results section. CBC W/PLT COUNT & AUTO Routine 02/18/2019 4:57 R esults for this DIFFERENTIAL AM SAFETY EQUIPMENT TESTING SPECIALIST procedure are i n the results section. CBC W/PLT COUNT & AUTO Routine 02/18/2019 4:57 R esults for this DIFFERENTIAL AM SAFETY EQUIPMENT TESTING SPECIALIST procedure are i n the results section. COMPREHENSIVE Routine 02/18/2019 4:57 Results fo r this METABOLIC PANEL AM SAFETY EQUIPMENT TESTING SPECIALIST procedure ar e in the results section. POCT-GLUCOSE METER Routine 02/17/2019 10:41 Resul ts for this PM SAFETY EQUIPMENT TESTING SPECIALIST procedure are i n the results section. ECHOCARDIOGRAM REPORT 02/17/2019 9:21 - SCAN PM SAFETY EQUIPMENT TESTING SPECIALIST POCT-GLUCOSE METER Routine 02/17/2019 5:58 Resul ts for this PM SAFETY EQUIPMENT TESTING SPECIALIST procedure are i n the results section. MR BRAIN WITHOUT IV Routine 02/17/2019 3:41 Resu lts for this CONTRAST PM SAFETY EQUIPMENT TESTING SPECIALIST procedure are i n the results section. WOUND CULTURE + GRAM Routine 02/17/2019 1:10 Res ults for this STAIN PM SAFETY EQUIPMENT TESTING SPECIALIST procedure are i n the results section. POCT-GLUCOSE METER Routine 02/17/2019 11:51 Resul ts for this AM SAFETY EQUIPMENT TESTING SPECIALIST procedure are i n the results section. DRUG SCREEN, URINE, Routine 02/17/2019 11:30 COMPREHENSIVE AM SAFETY EQUIPMENT TESTING SPECIALIST URINALYSIS W/ REFLEX Routine 02/17/2019 11:30 Res ults for this URINE CULTURE AM SAFETY EQUIPMENT TESTING SPECIALIST procedure are in the results section. URINE CULTURE Routine 02/17/2019 11:30 Results fo r this AM SAFETY EQUIPMENT TESTING SPECIALIST procedure are i n the results section. HEMOGLOBIN A1C Routine 02/17/2019 7:34 Results f or this AM SAFETY EQUIPMENT TESTING SPECIALIST procedure are i n the results section. VITAMIN B12 AND FOLATE Routine 02/17/2019 7:34 R esults for this AM SAFETY EQUIPMENT TESTING SPECIALIST procedure are i n the results section. CBC W/PLT COUNT & AUTO Routine 02/17/2019 4:52 R esults for this DIFFERENTIAL AM SAFETY EQUIPMENT TESTING SPECIALIST procedure are i n the results section. CBC W/PLT COUNT & AUTO Routine 02/17/2019 4:52 R esults for this DIFFERENTIAL AM SAFETY EQUIPMENT TESTING SPECIALIST procedure are i n the results section. COMPREHENSIVE Routine 02/17/2019 4:52 Results fo r this METABOLIC PANEL AM SAFETY EQUIPMENT TESTING SPECIALIST procedure ar e in the results section. LIPID PANEL Routine 02/17/2019 4:52 Results for this AM SAFETY EQUIPMENT TESTING SPECIALIST procedure are i n the results section. POCT-GLUCOSE METER Routine 02/17/2019 12:10 Resul ts for this AM SAFETY EQUIPMENT TESTING SPECIALIST procedure are i n the results section. HEMODIALYSIS INPATIENT Routine 02/16/2019 9:41 PM SAFETY EQUIPMENT TESTING SPECIALIST 2D ECHO W/ DOPPLER Routine 02/16/2019 7:06 Resul ts for this (CW/PW/COLOR) PM SAFETY EQUIPMENT TESTING SPECIALIST procedure are in the results section. CBC W/PLT COUNT & AUTO Routine 02/16/2019 6:41 R esults for this DIFFERENTIAL PM SAFETY EQUIPMENT TESTING SPECIALIST procedure are i n the results section. HEPATITIS C ANTIBODY Add-On 02/16/2019 6:41 Res ults for this PM SAFETY EQUIPMENT TESTING SPECIALIST procedure are i n the results section. HEPATITIS B SURFACE MARILEE 02/16/2019 6:41 Resu lts for this ANTIGEN PM SAFETY EQUIPMENT TESTING SPECIALIST procedure are i n the results section. CBC W/PLT COUNT & AUTO Routine 02/16/2019 6:41 R esults for this DIFFERENTIAL PM SAFETY EQUIPMENT TESTING SPECIALIST procedure are i n the results section. VITAMIN B12 Routine 02/16/2019 6:41 Results for this PM SAFETY EQUIPMENT TESTING SPECIALIST procedure are i n the results section. RPR Routine 02/16/2019 6:41 Results for this PM SAFETY EQUIPMENT TESTING SPECIALIST procedure are i n the results section. TSH Routine 02/16/2019 6:41 Results for this PM SAFETY EQUIPMENT TESTING SPECIALIST procedure are i n the results section. HEMOGLOBIN A1C AP Routine 02/16/2019 6:41 Results f or this PM SAFETY EQUIPMENT TESTING SPECIALIST procedure are i n the results section. TROPONIN I Routine 02/16/2019 6:41 Results for this PM SAFETY EQUIPMENT TESTING SPECIALIST procedure are i n the results section. PROTHROMBIN TIME/INR Routine 02/16/2019 6:41 Res ults for this PM SAFETY EQUIPMENT TESTING SPECIALIST procedure are i n the results section. COMPREHENSIVE Routine 02/16/2019 6:41 Results fo r this METABOLIC PANEL PM SAFETY EQUIPMENT TESTING SPECIALIST procedure ar e in the results section. XR CHEST 1 VIEW MARILEE 02/16/2019 5:21 Results for this PORTABLE/BEDSIDE PM SAFETY EQUIPMENT TESTING SPECIALIST procedure a re in the results section. after 10/10/2018 Results SARS-CoV2/RT-PCR ([facility] & Ref Labs) (09/12/2019 6:16 PM CDT) SARS-COV2/RT-PCR Not Detected Not Detected, Negative [facility] SARS-COV-2 PERFORMING LAB BSC [facility] Specimen Other Narrative Performed At Negative results do not preclude SARS-CoV-2 [facility] infection and should not be used as the sole basis for patient management decisions. Negative results must be combined with clinical observations, patient history, and epidemiological information. A false negative result may occur if a specimen is improperly collected, transported or handled. The limit of detection for this assay is 250 copies/mL. This SARS CoV-2 test is a rapid, real-time RT-PCR test intended for the qualitative detection of nucleic acid from SARS-CoV-2 in a nasopharyngeal swab specimen collected from individuals suspected of COVID-19 by their healthcare provider. This test has not been Food and Drug Administration (FDA) cleared or approved and has been authorized by FDA under an Emergency Use Authorization (EUA). This EUA will be effective until the declaration that circumstances exist justifying the authorization of the emergency use of in vitro diagnostic tests for detection and/or diagnosis of COVID-19 is terminated under Section 564(b)(2) of the Act or the EUA is revoked under Section 564(g) of the Act. Fact Sheet for Healthcare Providers: https://www.[employer]/Documents/Xpert%20Xpre ss%20SARS%20CoV-2/Fact%20Sheets/302-3802%20SAR S-COV-2%20HEALTHCARE%20PROVIDERS%20FACT%20SHEE T.pdf Fact Sheet for Healthcare Patients: https://www.[employer]/Documents/Xpert%20Xpre ss%20SARS%20CoV-2/Fact%20Sheets/302-3801%20SAR S-COV-2%20PATIENT%20FACT%20SHEET.pdf Performing Laboratory: [address] [address] Performing Organization Address City/[facility]/Zipcode Phone Number [address] [phone] [place] RHYTHM STRIP - SCAN (02/22/2019 8:50 AM SAFETY EQUIPMENT TESTING SPECIALIST) Narrative Performed At This result has an attachment that is no t available. POC-Glucose meter (02/19/2019 11:58 AM SAFETY EQUIPMENT TESTING SPECIALIST)Only the most recent of8 results within the time period is included. POC-Glucose Meter 77Comment: : TESTED AT 70 - 110 mg/dL [address], [address]: Philosophy Professor/Miller Wood Flour ID = [id number] for Erickson Berrios Specimen Blood Performing Organization Address [facility]/Zipcode Phone Number [address] [phone] [place] CBC with platelet count + automated diff (02/19/2019 4:24 AM SAFETY EQUIPMENT TESTING SPECIALIST)Only the most recent of4 resultswithin the time period is included. WBC 7.5 3.5 - 10.5 K/L [facility] RBC 2.47 (L) 3.93 - 5.22 M/L [facility] Hemoglobin 7.5 (L) 11.2 - 15.7 GM/DL [facility] Hematocrit 24.6 (L) 34.1 - 44.9 % [facility] MCV 99.6 (H) 79.4 - 94.8 fL [facility] MCH 30.4 25.6 - 32.2 pg [facility] MCHC 30.5 (L) 32.2 - 35.5 GM/DL [facility] RDW 15.3 (H) 11.7 - 14.4 % [facility] Platelets 183 150 - 450 K/CU MM [facility] MPV 9.6 9.4 - 12.3 fL [facility] nRBC 0 0 - 0 /100 WBC [facility] % Neutros 76 % [facility] % Lymphs 15 % [facility] % Monos 5 % [facility] % Eos 4 % [facility] % Baso 0 % [facility] # Neutros 5.70 1.56 - 6.13 K/L [facility] # Lymphs 1.11 (L) 1.18 - 3.74 K/L [facility] # Monos 0.39 (H) 0.24 - 0.36 K/L [facility] # Eos 0.28 0.04 - 0.36 K/L [facility] # Baso 0.02 0.01 - 0.08 K/L [facility] Immature Granulocytes-Relative 0 0 - 1 % C HI [facility] Specimen Blood Performing Organization Address City/State/Zipcode Phone Number [facility] [address] [place] [address] CENTER Comprehensive metabolic panel (02/18/2019 4:57 AM SAFETY EQUIPMENT TESTING SPECIALIST)Only the most recent of3 resultswithin the time period is included. Protein, Total 6.2 6.0 - 8.3 gm/dL [facility] Albumin 3.1 (L) 3.5 - 5.0 g/dL [facility] Alkaline Phosphatase 89 40 - 150 U/L [facility] Total Bilirubin 0.5 0.2 - 1.2 mg/dL [facility] Sodium 137 136 - 145 meq/L [facility] Potassium 4.4 3.5 - 5.1 meq/L [facility] Chloride 101 98 - 107 meq/L [facility] CO2 28 22 - 29 meq/L [facility] BUN 19 7 - 21 mg/dL [facility] Creatinine 4.63 (H) 0.57 - 1.25 mg/dL [facility] Glucose 75 70 - 105 mg/dL [facility] Calcium 8.6 8.4 - 10.2 mg/dL [facility] AST 34 5 - 34 U/L [facility] ALT 21 6 - 55 U/L [facility] EGFR 11Comment: ESTIMATED GFR mL/min/1.73 sq m [facility] IS NOT ACCURATE [facility] CREATININE CLEARANCE IN PREDICTING GLOMERULAR FILTRATION RATE. ESTIMATED GFR IS NOT APPLICABLE FOR DIALYSIS PATIENTS. Specimen Blood Performing Organization Address City/State/Zipcode Phone Number [facility] [address] [place] [address] CENTER ECHOCARDIOGRAM REPORT - SCAN (02/17/2019 9:21 PM SAFETY EQUIPMENT TESTING SPECIALIST) Narrative Performed At This result has an attachment that is no t available. MR brain without IV contrast (02/17/2019 3:41 PM SAFETY EQUIPMENT TESTING SPECIALIST) Specimen Narrative Performed At FINAL REPORT [employer] MR, BRAIN, WITHOUT CONTRAST INDICATION: Stroke, follow [...] External Ris In - 02/17/2019 4:08 PM SAFETY EQUIPMENT TESTING SPECIALIST FINAL REPORT MR, BRAIN, WITHOUT CONTRAST INDICATION: [...] 6:05:48 Performing Organization Address City/State/Zipcode Phone Number [facility] Wound culture + gram stain (02/17/2019 1:10 PM SAFETY EQUIPMENT TESTING SPECIALIST) Result No growth [facility] Gram Stain Result <1+ WBCs [facility] Gram Stain Result No organisms seen [facility] Specimen Abscess Performing Organization Address City/[facility]/Zipcode Phone Number [facility] [address] [place] [address] CENTER Urinalysis w/Microscopic + Reflex to Culture (02/17/2019 11:30 AM SAFETY EQUIPMENT TESTING SPECIALIST) Color, UA Yellow [facility] Clarity, UA Hazy [facility] Specific [place], UA 1.011 1.001 - 1.035 [facility] pH, UA 8.5 (H) 5.0 - 8.[address] [facility] Protein, UA 300 mg/dL (A) Negative [facility] Glucose, UA Negative Negative [facility] Ketones, UA Negative Negative [facility] Bilirubin, UA Negative Negative [facility] Blood, UA Trace (A) Negative [facility] Nitrite, UA Positive (A) Negative [facility] Leukocytes, UA Large (A) Negative [facility] Urobilinogen, UA 0.2 0.2 - 1.0 mg/dL [facility] RBC, UA 9 /HPF [facility] WBC, UA 24 /HPF [facility] Bacteria, UA Moderate [facility] Mucus Many [facility] Squam Epithel, UA 50 /HPF [facility] Specimen Source [facility] Specimen Urine Performing Organization Address City/[facility]/Zipcode Phone Number [address] [address] [place] Drug screen, urine, comprehensive (02/17/2019 11:30 AM SAFETY EQUIPMENT TESTING SPECIALIST) Specimen Urine Narrative Performed At This result has an attachment that is no t available. Urine culture (02/17/2019 11:30 AM SAFETY EQUIPMENT TESTING SPECIALIST) Result 40-49,000 col/mL skin rena [facility] Specimen Urine Performing Organization Address [facility] Phone Number [address] [address] [place] Vitamin B12 and Folate (02/17/2019 7:34 AM SAFETY EQUIPMENT TESTING SPECIALIST) Vitamin B12 >2000 (H) 213 - 816 pg/mL [facility] Folate 16.5 >=7.0 ng/mL [facility] Specimen Blood Performing Organization Address [facility] Phone Number [address] [phone] [place] Hemoglobin A1c (02/17/2019 7:34 AM SAFETY EQUIPMENT TESTING SPECIALIST)Only the most recent of2 resultswithin the time period is included. Hemoglobin A1C 4.3 4.3 - 6.1 % [facility] Specimen Blood Performing Organization Address [facility] Phone Number [address] [address] [place] Fasting lipid panel (02/17/2019 4:52 AM SAFETY EQUIPMENT TESTING SPECIALIST) Triglycerides 61 mg/dL [facility] Cholesterol 104 mg/dL [facility] HDL 56 mg/dL [facility] LDL Calculated 36 mg/dL [facility] Specimen Blood Narrative Performed At Triglyceride Reference Range: [facility] Low Risk <150 [id number] High Risk 200-499 Very High Risk>=500 Cholesterol Reference Range: Low Risk <200 Ejnsneajjw121-709 High Risk>240 HDL Cholesterol Reference Range: Low Risk >=60 High Risk <40 LDL Cholesterol Reference Range: Optimal<100 Near Merptoi079-136 Aztbpogomf133-623 Aipn171-687 Very High >=190 Fasting Performing Organization Address City/State/Zipcode Phone Number [facility] [address] [place] [address] CENTER 2D Echo W/Doppler(CW/PW/Color) (02/16/2019 7:06 PM SAFETY EQUIPMENT TESTING SPECIALIST) Ejection Fraction [facility] HEAR TLAB MKCKESSON CPACS Specimen Narrative Performed At Transthoracic Echocardiography Report (T TE) [facility] E[facility] HEARTLAB MK[facility] CPA Demographics Patient Name RUBI,Date of Study 02/16/2019 ERENDIRA [id number] GenderFema le Visit Number [id number] Blake [id number] Room Number [id number] Number Date of Birth1Referring Physician Debby Velez Age88 year(s)Kier Tender Brianna Luque MD Procedure Type of Study TTE procedure:2DECHO [...] Mild aortic stenosis. CT 1.91 cm2. 5. Imft-gi-smyjasdl tricuspid regurgita tion. 6. Estimated peak systolic [...] calcification. Mi ld MV leaflet thickening. Tricuspid XjsquKngz-jl-mcsgpgkc tricuspid regurgitation. Es timated peak systolic PA [...] External Ris In - 02/17/2019 3:09 PM SAFETY EQUIPMENT TESTING SPECIALIST Transthoracic Echocardiography Report (TTE) Demographics Patient Name RUBI, Date of Study 02/16/2019 ERENDIRA Gender Female Visit Number [id number] Race Black Room Num [place] [id number] Number Date of 1930 Lucina watkins Physician Debby Velez Age 88 year(s) Sonograp her Trevor Zuñiga [employer] Se[employer] Brianna Mccauley MD Procedure Type of Study TTE procedure:2DECHO W MENG R(CW/PW/COLOR) (Routine) Indications:Suspected cardiac source of emboli. [...] Mild aortic stenosis. CT 1.91 cm2. 5. Oncy-ow-fzchchmj tricuspid regurgita tion. 6. Estimated peak systolic [...] calcification. Mild MV leaflet thickening. Tricuspid Valve Lipt-ye-cfmzjbnf tricuspid regurgitation. Estimated peak s ystolic PA [...] Performing Organization Address City/State/Zipcode Phone Number [facility] Hepatitis C antibody (02/16/2019 6:41 PM SAFETY EQUIPMENT TESTING SPECIALIST) Hepatitis C Ab Nonreactive Nonreactive [facility] Specimen Blood Performing Organization Address [facility]/Zipcode Phone Number [address] [address] CENTER Troponin I (02/16/2019 6:41 PM SAFETY EQUIPMENT TESTING SPECIALIST) Troponin I 0.04 (H) 0.00 - 0.03 ng/mL [facility] Specimen Blood Narrative Performed At Troponin I (TnI) levels must be interpreted [facility] in the context of the presenting symptoms [...] disease, and persistent tachyarrhythmia. Performing Organization Address City/[facility] Cent[facility]ode Phone Number [address] [address] [place] RPR (02/16/2019 6:41 PM SAFETY EQUIPMENT TESTING SPECIALIST) RPR Nonreactive Nonreactive [facility] Specimen Blood Performing Organization Address City/[facility]/Zipcode Phone Number [address] [address] CENTER Hepatitis B surface antigen (02/16/2019 6:41 PM SAFETY EQUIPMENT TESTING SPECIALIST) HBsAg Screen Nonreactive Nonreactive [facility] Specimen Blood Performing Organization Address [facility]/Zipcode Phone Number [address] [address] [place] Prothrombin time/INR (02/16/2019 6:41 PM SAFETY EQUIPMENT TESTING SPECIALIST) Protime 16.0 (H) 11.9 - 14.[address] [facility] INR 1.4 <=5.9 [facility] Specimen Blood Narrative Performed At Effective 08/16/2018: PT Reference Range [facility] Change New: 11.9-14.2Previous: 11.7-14.7 RECOMMENDED COUMADIN/WARFARIN INR THERAPY RANGES STANDARD DOSE: 2.0-3.0Includes: PROPHYLAXIS for venous thrombosis, systemic embolization; TREATMENT for venous thrombosis and/or pulmonary embolus. HIGH RISK: Target INR is 2.5-3.5 for patients wiht mechanical heart valves. Performing Organization Address City/State/Zipcode Phone Number [address] [address] [place] TSH (02/16/2019 6:41 PM SAFETY EQUIPMENT TESTING SPECIALIST) TSH 1.78 0.35 - 4.94 uIU/mL [facility] Specimen Blood Performing Organization Address City/[facility]/Zipcode Phone Number [address] [address] [place] Vitamin B12 (02/16/2019 6:41 PM SAFETY EQUIPMENT TESTING SPECIALIST) Vitamin B12 >2000 (H) 213 - 816 pg/mL [facility] Specimen Blood Performing Organization Address City/[facility]/Zipcode Phone Number [address] [phone] [place] XR chest 1 view portable / bedside (02/16/2019 5:21 PM SAFETY EQUIPMENT TESTING SPECIALIST) Specimen Narrative Performed At FINAL REPORT [facility] TECHNIQUE: Frontal view of the chest. INDICATION: [...] MD Report Verified Date/Time:02/16/2019 18:34:17 Reading Location: [facility] B1 C013W Consult R eading Room Procedure Note Interface, External Ris In - 02/16/2019 6:36 PM SAFETY EQUIPMENT TESTING SPECIALIST FINAL REPORT TECHNIQUE: Frontal view of the [...] Verified Date/Time: 02/16/2019 1 8:34:17 Reading Location: [facility] B1 C013W Consult R eading Room Performing Organization Address City/State/Zipcode Phone Number GE RIS after 10/10/2018 Insurance Payer Benefit Plan / Group Subscriber ID Type Phone A ddress [employer] - MEDICARE MGD [employer] MEDICARE ADV xxxxxxxxx Maps Contracted CARE Advance Directives For more information, please contact:[place] [address] [address] [place], [place] [phone] Code Status Date Activated Date Inactivated Comments Full Code 02/16/2019 4:33 PM 02/19/2019 6:41 PM This code status was determined by: Patient
--- OUTSIDE RECORDS SUMMARY | 2019-10-11 12:33 | XMS REPORT | Clinical Summary ---
:1930 Author Organization [facility] Address [address] [place] [address] Care Team Providers Name Role Phone Leonid [...] INFLUENZA VACCINE 10/20/2019 Results Not on fileafter 10/10/2018 Insurance Payer Benefit Plan / Subscriber ID Effective Dates Phone Addre ss Type Group MEDICARE MEDICARE PART A xxxxxxxxxx 1995-Present [facility] [place] Medicare AND B AETNA AETNA PPO OPEN xxxxxxxxxx 1995-Present PPO CHOICE Advance Directives For more information, please contact: [phone] Type Date Recorded Patient Inspector Eyeglass Frames Explanati on Advance Directives, Living Will and Medical Power of Corn Chip Maker
--- OUTSIDE RECORDS SUMMARY | 2019-10-11 12:34 | XMS REPORT | Continuity of Care Document ---
:1930 Author Organization [employer] Care Team Providers Name Role Phone [employer] Unavailable Un available Problems Problem Status Onset Classification Date Comments Sourc e Date Reported Anemia, unspecified 06/15/2018 018 [place] CHF, SYMPTOMATIC Active Mem orial ANEMIA 018 [place] CHF EXACERBATION Active Mem orial 018 [place] ACUTE CONGESTIVE HEART Active [facility] FAILURE, ESRD 018 [place] Hip pain (finding) Active Problem 06/15/2018 Data 013 migrated [place] from [employer] on 08/17/14. Iron deficiency anemia Active Problem 06/15/2018 Data (disorder) 013 migrated [place] from [employer] on 08/17/14. Loss of appetite Active Problem 06/15/2018 Data MH (finding) 013 migrated [place] from [employer] on 08/17/14. Gastroesophageal Active Problem 06/15/2018 Data reflux disease 013 migrated [place] and (disorder) from [employer] on 08/17/14. Lung mass (finding) Active Problem 06/15/2018 Data 013 migrated [place] from [employer] on 08/17/14. Thyroid nodule Active Problem 06/15/2018 Data MH (disorder) 013 migrated [place] from [employer] on 08/17/14. Osteoarthritis of knee Active Problem 06/15/2018 Data (disorder) 012 migrated [place] from [employer] on 08/17/14. Long-term drug therapy Active Problem 06/15/2018 Data (procedure) 012 migrated [place] from [employer] on 08/17/14. Malaise and fatigue Active Problem 06/15/2018 Data MH (finding) 012 migrated [place] from [employer] on 08/17/14. Abnormal cytology Active 2 Problem 06/15/2018 Data M H findings (finding) 012 migrated [place] from [employer] on 08/17/14. 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 Pure 06/15/2018 hypercholesterolemia, [place] unspecified Heart failure, 06/15/2018 unspecified [place] Unilateral primary 06/15/2018 osteoarthritis, [facility] unspecified knee Anemia in other 06/15/2018 chronic diseases [place] classified elsewhere Thrombocytopenia, 06/15/2018 M H unspecified [place] Hypertensive urgency 06/15/2018 MH [place] Gastro-esophageal 06/15/2018 M H reflux disease without [place] esophagitis Nicotine dependence, 06/15/2018 cigarettes, [place] uncomplicated 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 Constipation Active Problem 06/15/2018 Data MH (disorder) migrated [place] from [employer] on 08/17/14. Diabetes mellitus Active Problem 06/15/2018 Data M H (disorder) migrated [place] from [employer] on 08/17/14. Hypercholesterolemia Active Problem 06/15/2018 Data MH (disorder) migrated [place] from [employer] on 08/17/14. Impaired glucose Active Problem 06/15/2018 Data MH tolerance (disorder) migrated [place] from [employer] on 08/17/14. Acute respiratory 08/05/2017 M H failure with hypoxia [place] Acute on chronic 08/05/2017 diastolic (congestive) [place] heart failure Patient's 08/05/2017 noncompliance with [place] other medical treatment and regimen Anemia in chronic 08/05/2017 M H kidney disease [place] and Other malaise 08/05/2017 [facility] Personal history of 08/05/2017 nicotine dependence [place] HEART FAILURE, Active Memor ial UNSPECIFIED [place] ACUTE DIASTOLIC Active Mig[place] rial (CONGESTIVE) HEART H ermann FAILU Medications Medication Details Route Status Patient Ordering Order Source Instructions Provider Date Hydralazine Notes: (Same Inactive Hydrochloride as: 018 [place] 100 MG Oral Apresoline) Tablet May interfere w/enteral feedings Take With Food Hydralazine 100 mg = 1 Active Hydrochloride tab, PO, Q8H, 018 [place] 100 MG Oral # 90 tab, 2 Tablet Refill(s), Pharmacy: [facility]/pharmacy #[id number] Doxazosin Notes: (Same No Longer as: Cardura) Active 018 [place] Clonidine Notes: (Same No Longer Hydrochloride As: Catapres) Active 018 [place] 0.3 MG Oral Tablet isosorbide Notes: (Same No Longer mononitrate as:Imdur) "Do Active 018 [place] extended Not Crush" release Take on empty stomach/ full glass of water. Do not crush Plavix Notes: (Same No Longer As: Plavix) Active 018 [place] Aspirin Notes: Do not No Longer MH crush or Active 018 [place] chew. (Same As: Ecotrin) Epogen Notes: (Same Inactive as: Procrit) 018 [place] epoetin ana rosa 3000 unit/1 ml VL. For dialysis use only WASTE: F/P - Red; E -Red MEDICATION WASTE Product Size: 3000 unit Product Wasted: ___ unit epoetin ana rosa Notes: (Same No Longer as: Procrit) Active 018 [place] epoetin ana rosa 60661 unit/1 ml VL. For dialysis use only. (Procrit) WASTE: F/P - Red; E -Red MEDICATION WASTE Product Size: 16571 unit Product Wasted: ___ unit Clonidine 0.3 mg, PO, Active MH BID, 0 018 [place] Refill(s) Acetaminophen 1 tab, PO, Active MH 300 MG / Q6H, PRN 018 [place] Codeine Pain, # 28 Phosphate 30 MG tab, 0 Oral Tablet Refill(s) [Tylenol with Codeine #3] ramipril 10 mg See Active oral capsule Instructions, 018 [place] and 1 cap PO Daily 30 day, 0 Refill(s) Clonidine Notes: (Same Inactive As: Catapres) [address] [place] [address] Hydralazine Notes: (Same No Longer Hydrochloride as: Active [address] [place] [address] 100 MG Oral Apresoline) Tablet May interfere w/enteral feedings Take With Food NIFEdipine 90 Notes: (Same No Longer mg oral tablet, as: Adalat Active 018 [place] and extended CC, Procardia release XL) Give on empty stomach. Take 1 hour before or 2 hours after meal; "Avoid grapefruit and grapefruit juice". Do not crush Hydralazine 5 mg, Route: Inactive IVP, ONCE, [address] [place] [address] Dosing Weight 65.909, kg, Start date: 11/25/17 19:59:00 CDT, Stop date: 11/25/17 19:59:00 CDT Lipitor 80 mg, PO, Active Daily, at [address] [place] [address] bedtime, 0 Refill(s) Sodium Chloride 1,000 mL, [...] Hydralazine Notes: (Same No Longer as: Active [address] [place] [address] Apresoline) Push over 5 minutes Acetaminophen Notes: Do not No Longer MH exceed 4 Active 018 [place] gm/day. (Same as: Tylenol) Acetaminophen Notes: (Same No Longer MH 325 MG / as: [place] Active 018 [place] Hydrocodone 325/5) Do Bitartrate 5 MG not exceed Oral Tablet 4gm/day of acetaminophen . remove patch 1 patch, No Longer Route: TOP, Active 018 [place] Drug form: ERFILM, Q7D, Start date: 05/06/17 4:59:00 MANAGER LINE, Duration: 30 day, Stop date: 06/03/17 9:00:00 CDT Clonidine 0.2 mg = 2 Active Hydrochloride tab, PO, BID, 018 [place] 0.1 MG Oral # 30 tab, 0 Tablet Refill(s), Pharmacy: [facility]/pharmacy #[id number] losartan 50 mg 100 mg = 2 Active oral tablet tab, PO, 018 [place] Q12H, # 30 tab, 0 Refill(s), Pharmacy: [facility]/pharmacy #[id number] Hydralazine 200 mg = 2 Active Hydrochloride tab, PO, TID, 018 [place] 100 MG Oral 0 Refill(s) Tablet Clonidine Notes: (Same Inactive Hydrochloride As: Catapres) 018 [place] 0.1 MG Oral Tablet normal saline 1,000 mL, Inactive 0.9% IV 1,000 Rate: 75 018 [place] mL ml/hr, Infuse over: 13.3 hr, Route: IV, Dosing Weight 68.5 kg, Total Volume: 1,000, Start date: 04/29/17 10:55:00 MANAGER LINE, Duration: 30 day, Stop date: 05/29/17 10:54:00 CDT, 1.79, m2 Hydralazine 50 mg, 1 tab, Inactive Hydrochloride Route: PO, 018 [place] 50 MG Oral Drug form: Tablet TAB, TID, Dosing Weight 68.5, kg, Start date: 04/29/17 9:00:00 MANAGER LINE, Duration: 30 day, Stop date: 05/28/17 17:00:00 MANAGER LINE 168 HR Notes: Patch Inactive Clonidine delivers 0.1 018 [place] 0.43371 MG/HR mg/24 hours; Transdermal Patch is Patch applied weekly. "Remove old patch before application of new patch" (Same As: Catapres-TTS- 1) Kayexalate Notes: Inactive MH (sodium 018 [place] polystyrene sulfonate 15 gm/60 ml TRINITY) Shake well before use. (Same as: Kayexalate, SPS) sodium chloride 2,000 mL, 0 No Longer MH 0.9% (Priming ml/hr, Infuse Active 018 [place] and Over: 0 hr, Maintenance) Route: IV, 2,000, Drug form: INJ, PRN, Dosing Weight 68.5 kg, Start date: 04/28/17 11:40:00 MANAGER LINE, Duration: 24 hr, Stop date: 04/29/17 11:39:00 MANAGER LINE, For Use by Dialysis nurse ONLY, PRN Dialysis Hydralazine Notes: (Same No Longer MH as: Active 018 [place] Apresoline) Push over 5 minutes Clonidine Notes: (Same No Longer MH As: Catapres) Active 018 [place] Losartan Notes: (Same No Longer MH as: Cozaar) Active 018 [place] NIFEdipine 90 Notes: (Same No Longer MH mg oral tablet, as: Adalat Active 018 [place] and extended CC,Procardia release XL) "Do Not Crush" "Avoid grapefruit and grapefruit juice" Melatonin Notes: (Same No Longer MH as: Active 018 [place] Melatonin) Melatonin 2.5 2.5 mg, 1 Inactive MH mg oral capsule cap, Route: 018 [place] PO, Dosing Weight 68.5, kg, Bedtime, PRN as needed for insomnia, Start date: 04/25/17 17:50:00 MANAGER LINE, Duration: 30 day, Stop date: 05/25/17 17:49:00 MANAGER LINE heparin 10,000 unit, No Longer MH 10 mL, Route: Active 018 [place] DIALYSIS, Drug form: INJ, ONCALL, Dosing Weight 68.5, kg, PRN Dialysis, Start date: 04/25/17 7:45:00 MANAGER LINE, Duration: 1 doses or times, Stop date: Limited # of times albumin human Notes: Lot #: No Longer MH 25% intravenous Active 018 [place] solution Mfg: (Same as: Plasbumin-25) "blood product derivative" WASTE: F/P - Red; E -Red MEDICATION WASTE Product Size: 25 gm Product Wasted: ___ gm normal saline 1,000 mL, No Longer MH 0.9% IV 1,000 Rate: 1 Active 018 [place] mL ml/hr, Infuse over: 1000 hr, Route: DIALYSIS, Dosing Weight 68.5 kg, Total Volume: 1,000, Priority: NOW, Start date: 04/25/17 7:43:00 MANAGER LINE, Duration: 30 day, Stop date: 05/25/17 7:42:00 MANAGER LINE, 1.79, m2 normal saline 1,000 mL, No Longer MH 0.9% IV 1,000 Rate: 1 Active 018 [place] mL ml/hr, Infuse over: 1000 hr, Route: DIALYSIS, Dosing Weight 68.5 kg, Total Volume: 1,000, Priority: NOW, Start date: 04/25/17 7:42:00 MANAGER LINE, Duration: 30 day, Stop date: 05/25/17 7:41:00 MANAGER LINE, 1.79, m2 Isosorbide Notes: (Same No Longer MH Dinitrate as:Isordil) Active 018 [place] Take on empty stomach/ full glass of water Epogen Notes: (Same No Longer MH as: Procrit) Active 018 [place] epoetin ana rosa 33977 unit/1 ml VL. For dialysis use only. (Procrit) WASTE: F/P - Red; E -Red MEDICATION WASTE Product Size: 21120 unit Product Wasted: ___ unit Sertraline Notes: (Same No Longer MH as: Zoloft) Active 018 [place] Doxazosin Notes: (Same No Longer MH as: Cardura) Active 018 [place] Docusate Sodium Notes: (Same No Longer M H 100 MG Oral as: Colace) Active 018 [place] Capsule (Do Not Crush) Vitamin D3 1000 Notes: Same No Longer MH intl units oral as : Vitamin Active 018 [place] tablet D3 Tums Notes: (Same No Longer MH As: Tums) Active 018 [place] Calcium Carbonate 500 mg = 200 mg elemental calcium Dose = mg calcium carbonate ( mg elemental calcium) Hydralazine Notes: (Same No Longer MH Hydrochloride as: Active 018 [place] 100 MG Oral Apresoline) Tablet May interfere w/enteral feedings Take With Food heparin Notes: No Longer MH porcine Active 018 [place] heparin Plavix Notes: (Same No Longer MH As: Plavix) Active 018 [place] Aspirin Notes: Do not No Longer MH crush or Active 018 [place] chew. (Same As: Ecotrin) Hydralazine Notes: (Same Inactive MH as: 018 [place] Apresoline) May interfere w/enteral feedings Take With [...] 60 MG / Biotin QPM, 0 018 [place] 0.3 MG / Folic Refill(s) Acid 0.8 [...] mg 4 mg = 1 tab, Active MH oral tablet PO, QPM, 0 018 [place] Refill(s) losartan 50 mg 50 mg = 1 No Longer MH oral tablet tab, PO, QAM Active 018 [place] & PM, 0 Refill(s) Tums 1,000 mg, Active MH CHEW, QAM & 018 [place] PM, 0 Refill(s) Docusate Sodium 100 mg = 1 Active MH 100 MG Oral cap, PO, QAM 018 [place] Capsule & PM, 0 Refill(s) Vitamin D3 5000 5,000 Active intl units oral IntlUnit = 1 018 [place] capsule cap, PO, QPM, # 30 cap, 1 Refill(s) Hydralazine Notes: (Same No Longer MH as: Active 018 [place] Apresoline) Push over 5 minutes Labetalol 20 mg, 4 mL, Inactive Route: IVP, Job Leonardo Drug form: INJ, ONCE, Dosing Weight 68.5, kg, Start date: 04/22/17 3:57:00 MANAGER LINE, Stop date: 04/22/17 3:57:00 MANAGER LINE potassium Notes: (Same Inactive chloride 20 mEq as: K-Dur 20) 018 [place] oral tablet, "Do Not extended Crush" With release food and full glass of water Magnesium Notes: WASTE: Inactive Sulfate F/P - Sink; E 018 [place] - Municipal Trash Bin Isosorbide 90 mg, PO, Active MH Dinitrate QAM, 0 018 [place] Refill(s) Hydralazine 100 mg = 1 No Longer MH Hydrochloride tab, PO, TID, Active 018 [place] 100 MG Oral 0 Refill(s) Tablet clopidogrel 75 75 mg = 1 Active MH MG Oral Tablet tab, PO, QAM, 018 [place] [Plavix] 0 Refill(s) Aspirin 81 mg, PO, Active MH QAM, 0 018 [place] Refill(s) Hydralazine Notes: (Same Inactive MH as: 018 [place] Apresoline) Push over 5 minutes Insulin Lispro Notes: Roll No Longer MH in palms of Active 018 [place] hands gently; Do not shake `vigorously. (Same as: Humalog ) "Single Patient Use Only " WASTE: F/P - Black; E - Municipal Trash Bin Stable for 28 days at room temperature. Expires in days from _Date Dextrose 50% 12.5 gm, 25 No Longer MH Syringe mL, Route: Active 018 [place] IVP, Drug Form: INJ, Dosing Weight 68.5, kg, PRN, PRN Blood Glucose Results, Start date: 04/22/17 1:43:00 MANAGER LINE, Duration: 30 day, Stop date: 05/22/17 1:42:00 MANAGER LINE Glucagon 1 mg, Route: No Longer MH IM, Drug Active 018 [place] form: PDR/INJ, PRN, Dosing Weight 68.5, kg, PRN Blood Glucose Results, Start date: 04/22/17 1:43:00 MANAGER LINE, Duration: 30 day, Stop date: 05/22/17 1:42:00 MANAGER LINE NIFEdipine 60 Notes: (Same No Longer MH mg oral tablet, as: Adalat Active 018 [place] and extended CC, Procardia release XL) Give on empty stomach. Take 1 hour before or 2 hours after meal; "Avoid grapefruit and grapefruit juice". Do not crush Losartan Notes: (Same No Longer MH as: Cozaar) Active 018 [place] Acetaminophen Notes: Do not No Longer MH exceed 4 Active 018 [place] gm/day. (Same as: Tylenol) Allergies, Adverse Reactions, Alerts Substance Category Reaction Severity Reaction Status Date Comments S ource type Reported penicillins Assertion Drug Active Data <sup>1</sup allergy migrated [place] > from [employer] on 10/17/14. Originally documented as PENICILLIN. diazepam<ochoa Assertion Drug Active Data MH p>2</sup> allergy migrated [place] and from [employer] on 07/18/14. Originally documented as VALIUM. fexofenadin Assertion Drug Active Data e<sup>3</ochoa allergy migrated [place] p> from [employer] on 07/18/14. Originally documented as FANY ALLERGY. gatifloxaci Assertion Drug Active Data n<sup>4</ochoa allergy migrated [place] p> from [employer] on 07/18/14. Originally documented as TEQUIN. Tequin Assertion Drug Active MH allergy [place] DULoxetine< Assertion Drug Active Data MH sup>5</sup> allergy migrated Yury henson from [employer] on 07/18/14. Originally documented as CYMBALTA. Immunizations Immunization Date Given Site Status Last Comments Source Updated Hx influenza 12/23/2011 completed [facility] Result MH Yury rlaaliyah vaccine-unspecifi Comment: flu ed<sup>1</sup> shot. Migrated from OBS ; Data migrated from [employer] on 04/22/2015. Results Order Name Results Value Reference Date Interpretation Comments Mandy rce Range CHEM PANEL eGFR 14 11/26 Result Comment: The [place] eGFR is calculated using the CKD-EPI formula. [...] Glucose Lvl 190 70 - 99 11/26 [place] CHEM PANEL BUN 22 7 - 22 11/26 [place] CHEM PANEL Creatinine 3.20 0.50 - 11/26 MH Lvl 1.40 /2017 [place] CHEM PANEL Sodium Lvl 134 135 - 145 11/26 [place] CHEM PANEL CO2 27 24 - 32 11/26 [place] CHEM PANEL Chloride Lvl 98 95 - 109 11/26 [place] CHEM PANEL Potassium 3.9 3.5 - 5.1 11/26 MH Lvl /2017 [place] CHEM PANEL AGAP 12.9 10.0 - 11/26 MH 20.0 [place] CHEM PANEL Calcium Lvl 8.1 8.5 - 10.5 09 /2017 [place] HEMATOLOGY Lymphocytes 0.7 1.0 - 5.5 09/08 MH # /2017 [place] HEMATOLOGY Eosinophils 0.1 0.0 - 0.5 09/ MH # /2017 [place] HEMATOLOGY Monocytes # 0.5 0.0 - 0.8 / /2017 [place] HEMATOLOGY Eosinophils 0.9 0.0 - 4.0 / /2017 [place] HEMATOLOGY Monocytes 5.3 2.0 - 12.0 11/26 /2017 [place] HEMATOLOGY Neutrophils 7.3 1.5 - 8.1 09/ MH # /2017 [place] HEMATOLOGY Basophils 0.6 0.0 - 1.0 09 /2017 [place] HEMATOLOGY Lymphocytes 8.4 20.0 - 09 MH 40.0 [place] HEMATOLOGY Segs 84.8 45.0 - 09 MH 75.0 [place] HEMATOLOGY Basophils # 0.1 0.0 - 0.2 11/26 /2017 [place] HEMATOLOGY MCHC 34.5 32.0 - 09 MH 36.0 [place] HEMATOLOGY RDW 15.1 11.5 - 09 MH 14.5 [place] HEMATOLOGY Platelet 137 133 - 450 09 /2017 [place] HEMATOLOGY MPV 8.2 7.4 - 10.4 11/26 /2017 [place] HEMATOLOGY RBC 2.73 4.20 - 11/26 MH 5.40 [place] HEMATOLOGY Hgb 8.9 12.0 - 11/26 MH 16.0 [place] HEMATOLOGY Hct 25.9 36.0 - 11/26 MH 48.0 [place] HEMATOLOGY MCV 94.8 80.0 - 09 MH 98.0 [place] HEMATOLOGY MCH 32.7 27.0 - 09 MH 31.0 [place] HEMATOLOGY WBC 8.6 3.7 - 10.4 11/26 [place] BACTERIAL - MRSA by PCR Negative 11/26 SEROLOGY (11/26/17 12:49 AM) /2017 [place] and ANEMIA Folate Lvl 31.9 >=3.0 11/26 STUDY ng/mL /2017 [place] ANEMIA Vitamin B12 707 254 - 1320 11/26 STUDY Lvl /2017 [place] ANEMIA Ferritin Lvl 2302 5 - 204 11/26 MH STUDY /2017 [place] CHEM PANEL LDH 207 98 - 192 11/26 MH /2017 [place] CHEM PANEL Bili 0.2 0.0 - 1.0 11/26 MH Indirect /2017 [place] CHEM PANEL Bili Total 0.4 0.2 - 1.3 11/26 /2017 [place] CHEM PANEL Bili Direct 0.2 0.0 - 0.3 11/26 [place] HEMATOLOGY Retic Auto 1.6 0.5 - 1.5 11/26 [place] IMMUNOLOGY Homocyst Tot 25.8 3.7 - 13.9 11/26 [place] ORGANIC Disclaimer Comment 11/26 Result MH ACID (Org Acid) /2017 Comment: [place]
This test was developed and its performance characteristi cs
determ ined by [facility]. It has not been cleared or
approv ed by the Food and Drug Administratio n.
Perfor med At: [facility] [place]
[address] [place], [place] [id number]< br/>Delicia Simeon MD Ph:[phone] ORGANIC MMA Qnt 572 0 - 378 11/26 MH ACID /2017 [place] BLOOD BANK RBC product Product available 1 11/25 Resul t MH RESULTS (11/25/17 6:45 PM) /2017 Comment: Rosy mcgraw 11/25/2017 18:46 [id number]
Blood available, notified Wilbert/ Evelyn at 11/25/2017 18:46_ by _LL. BLOOD BANK Antibody Negative 11/25 RESULTS Scrn (11/25/17 5:20 PM) /2017 [place] d BLOOD BANK RBC product Product available 2 11/25 Resul t MH RESULTS (11/25/17 5:20 PM) /2017 Comment: Rosy mcgraw 11/25/2017 19:32 [id number]
called to sandro for picking tech at 1923 11/25/2017 19:32 tb BLOOD BANK ABO/Rh A NEG 11/25 MH RESULTS /2017 [place] ELECTROLYTE AGAP 13.7 10.0 - 11/25 MH S 20.0 /2017 [place] ELECTROLYTE B/C Ratio 8 6 - 25 11/25 MH S /2017 [place] ELECTROLYTE A/G Ratio 0.8 0.7 - 1.6 11/25 MH S [place] ELECTROLYTE Globulin 3.9 2.7 - 4.2 11/25 MH S [place] ELECTROLYTE Chloride Lvl 101 95 - 109 11/25 MH S [place] ELECTROLYTE Sodium Lvl 138 135 - 145 11/25 MH S [place] ELECTROLYTE Potassium 3.7 3.5 - 5.1 11/25 MH S Lvl /2018 [place] ELECTROLYTE AST 31 0 - 37 11/25 MH S [place] ELECTROLYTE ALT 25 0 - 65 11/25 MH S [place] ELECTROLYTE Albumin Lvl 3.1 3.5 - 5.0 11/25 MH S [place] ELECTROLYTE Calcium Lvl 8.0 8.5 - 10.5 11/25 MH S [place] ELECTROLYTE CO2 27 24 - 32 11/25 MH S [place] ELECTROLYTE BUN 41 7 - 22 11/25 MH S [place] ELECTROLYTE Glucose Lvl 114 70 - 99 11/25 MH S [place] ELECTROLYTE Total 7.0 6.4 - 8.4 11/25 MH S Protein [place] ELECTROLYTE Creatinine 4.96 0.50 - 09 MH S Lvl 1.40 [place] ELECTROLYTE Bili Total 0.4 0.2 - 1.3 11/25 MH S [place] ELECTROLYTE Alk Phos 73 39 - 136 11/25 MH S [place] ELECTROLYTE eGFR 8 11/25 Result MH S Comment: The [place] eGFR is calculated using the CKD-EPI formula. [...] HEMATOLOGY WBC 6.3 3.7 - 10.4 11/25 /2017 [place] HEMATOLOGY RBC 1.95 4.20 - 11/25 MH 5.40 /2017 [place] HEMATOLOGY Hgb 6.3 12.0 - 11/25 Result MH 16.0 /2017 Comment: [place] Critical Result(s) called to [facility]/ at _11/25/2017 17:31 by_cg Read back OK. HEMATOLOGY Hct 18.3 36.0 - 11/25 Result MH 48.0 /2017 Comment: [place] Critical Result(s) called to [facility] at _11/25/2017 17:31 by_cg Read back OK. HEMATOLOGY MCHC 34.5 32.0 - 11/25 MH 36.0 /2017 [place] HEMATOLOGY MCH 32.4 27.0 - 11/25 MH 31.0 [place] HEMATOLOGY MCV 93.7 80.0 - 11/25 MH 98.0 /2017 [place] HEMATOLOGY MPV 8.1 7.4 - 10.4 11/25 /2017 [place] HEMATOLOGY Platelet 129 133 - 450 11/25 /2017 [place] HEMATOLOGY RDW 16.3 11.5 - 11/25 MH 14.5 /2017 [place] HEMATOLOGY Neutrophils 5.1 1.5 - 8.1 11/25 MH # /2018 [place] HEMATOLOGY Monocytes # 0.3 0.0 - 0.8 11/25 /2017 [place] HEMATOLOGY Lymphocytes 0.8 1.0 - 5.5 11/25 MH # /2018 [place] HEMATOLOGY Hypochrom 1+ None Seen 11/25 (11/25/17 5:20 PM) /2017 [place] HEMATOLOGY Microcyte 1+ None Seen 11/25 MH *ABN* /2017 [place] (11/25/17 5:20 PM) HEMATOLOGY Anisocyte 1+ None Seen 11/25 *ABN* /2017 [place] (11/25/17 5:20 PM) HEMATOLOGY RBC Morph See Note 11/25 (11/25/17 5:20 PM) /2017 [place] HEMATOLOGY Segs 80.8 45.0 - 11/25 MH 75.0 [place] HEMATOLOGY Plt Morph Normal 11/25 (11/25/17 5:20 PM) /2017 [place] HEMATOLOGY Monocytes 5.5 2.0 - 12.0 11/25 [place] HEMATOLOGY Lymphocytes 13.0 20.0 - 11/25 MH 40.0 [place] HEMATOLOGY Basophils 0.5 0.0 - 1.0 11/25 [place] HEMATOLOGY Eosinophils 0.2 0.0 - 4.0 11/25 [place] HEMATOLOGY Spherocyte Occasional None Seen 11/25 MH *ABN* /2017 [place] (11/25/17 5:20 PM) HEMATOLOGY Tear Cell Few 11/25 [place] IMMUNOLOGY Hep Bs Ag Negative Negative 11/25 *NA* [place] (11/25/17 5:20 PM) ELECTROLYTE AGAP 10.8 10.0 - 04/29 MH S 20.0 [place] ELECTROLYTE eGFR 15 04/29 Result Comment: The [place] eGFR is calculated using the CKD-EPI formula. [...] Calcium Lvl 8.5 8.5 - 10.5 04/29 S [place] ELECTROLYTE Creatinine 3.11 0.50 - 04/29 S Lvl 1.40 [place] ELECTROLYTE Glucose Lvl 82 70 - 99 04/29 S [place] ELECTROLYTE Sodium Lvl 135 135 - 145 04/29 S [place] ELECTROLYTE Chloride Lvl 99 95 - 109 04/29 S [place] ELECTROLYTE CO2 30 24 - 32 04/29 S [place] ELECTROLYTE Potassium 4.8 3.5 - 5.1 04/29 MH S Lvl [place] ELECTROLYTE BUN 19 7 - 22 02/ MH S /2018 [place] HEMATOLOGY Basophils 0.7 0.0 - 1.0 / MH /2017 [place] HEMATOLOGY Eosinophils 1.3 0.0 - 4.0 04/29 MH /2017 [place] HEMATOLOGY Segs 74.6 45.0 - 02/ MH 75.0 /2017 [place] HEMATOLOGY Monocytes # 0.4 0.0 - 0.8 / MH /2017 [place] HEMATOLOGY Segs-Bands # 3.9 1.5 - 8.1 04/29 MH /2017 [place] HEMATOLOGY Lymphocytes 0.8 1.0 - 5.5 02/ MH # /2017 [place] HEMATOLOGY Eosinophils 0.1 0.0 - 0.5 04/29 MH # /2017 [place] HEMATOLOGY Lymphocytes 15.1 20.0 - 02 MH 40.0 [place] HEMATOLOGY Monocytes 8.3 2.0 - 12.0 04/29 /2017 [facility] HEMATOLOGY RDW 14.7 11.5 - 04/29 MH 14.5 [place] HEMATOLOGY Platelet 204 133 - 450 04/29 /2017 [facility] HEMATOLOGY MPV 8.5 7.4 - 10.4 04/29 /2017 [place] [facility] HEMATOLOGY MCV 96.8 80.0 - 02 MH 98.0 [place] [facility] HEMATOLOGY Hct 28.5 36.0 - 02 MH 48.0 [place] [facility] HEMATOLOGY MCHC 35.6 32.0 - 02 MH 36.0 [place] [facility] HEMATOLOGY MCH 34.4 27.0 - 02 MH 31.0 [place] [facility] HEMATOLOGY WBC 5.2 3.7 - 10.4 04/29 /2017 [place] [facility] HEMATOLOGY RBC 2.94 4.20 - 02 MH 5.40 [place] [facility] HEMATOLOGY Hgb 10.1 12.0 - 04/29 MH 16.0 [place] [facility] ELECTROLYTE Potassium 5.3 3.5 - 5.1 04/28 MH S Lvl /2017 [facility] BLOOD BANK ABO/Rh A NEG 04/28 RESULTS /2017 [facility] BLOOD BANK Antibody Negative 04/28 RESULTS Scrn (04/28/17 7:30 AM) [facility] RBC product Product available 1 04/28 [facility] t MH RESULTS (04/28/17 7:00 AM) /2017 Comment: [place] 04/28/2017 09:20 [id number]
Blood available, notified Ravi Deleon at 04/28/2017 09:19 by VV. CHEM PANEL eGFR 9 04/28 [facility] Comment: The [place] [facility] eGFR is calculated using the CKD-EPI formula. [...] Calcium Lvl 8.2 8.5 - 10.5 04/28 [facility] CHEM PANEL CO2 29 24 - 32 04/28 [facility] CHEM PANEL Sodium Lvl 130 135 - 145 04/28 [facility] CHEM PANEL Chloride Lvl 97 95 - 109 04/28 [place] [facility] CHEM PANEL Potassium 5.7 3.5 - 5.1 04/28 MH Lvl [place] CHEM PANEL BUN 37 7 - 22 04/28 [place] [facility] CHEM PANEL Glucose Lvl 87 70 - 99 04/28 [place] [facility] CHEM PANEL Creatinine 4.70 0.50 - 02 Lvl 1.40 [place] [facility] CHEM PANEL AGAP 9.7 10.0 - 04/28 MH 20.0 [place] [facility] HEMATOLOGY Platelet 176 133 - 450 04/28 [facility] HEMATOLOGY MPV 8.1 7.4 - 10.4 04/28 [place] [facility] HEMATOLOGY RDW 13.6 11.5 - 04/28 MH 14.5 [place] HEMATOLOGY MCH 34.9 27.0 - 04/28 MH 31.0 [place] HEMATOLOGY MCHC 35.4 32.0 - 02/08 MH 36.0 /2018 [facility] HEMATOLOGY Hgb 6.5 12.0 - 02/08 Result MH 16.0 /2018 Comment: [place] [facility] Critical Result(s) called to andrew fuentes at 04/28/2017 04:20 by rush. Read back OK. HEMATOLOGY MCV 98.6 80.0 - 02/08 MH 98.0 /2018 [facility] HEMATOLOGY Hct 18.5 36.0 - 02/08 Result 48.0 /2018 Comment: [place] [facility] Critical Result(s) called to andrew fuentes at 04/28/2017 04:20 by gg. Read back OK. HEMATOLOGY WBC 4.2 3.7 - 10.4 02/08 MH /2017 [place] [facility] HEMATOLOGY RBC 1.87 4.20 - 0208 MH 5.40 /2017 [place] [facility] HEMATOLOGY Monocytes # 0.4 0.0 - 0.8 04/28 MH /2017 [place] [facility] HEMATOLOGY Eosinophils 0.1 0.0 - 0.5 02/ MH # /2018 [place] [facility] HEMATOLOGY Segs-Bands # 2.7 1.5 - 8.1 04/28 [facility] HEMATOLOGY Lymphocytes 1.0 1.0 - 5.5 02/08 MH # /2018 [place] [facility] HEMATOLOGY Lymphocytes 24.2 20.0 - 02/08 MH 40.0 /2018 [place] [facility] HEMATOLOGY Segs 64.0 45.0 - 02/08 MH 75.0 /2018 [place] [facility] HEMATOLOGY Monocytes 8.8 2.0 - 12.0 08 MH /2017 [place] HEMATOLOGY Eosinophils 2.1 0.0 - 4.0 /08 MH /2017 [place] [facility] HEMATOLOGY Basophils 0.9 0.0 - 1.0 04/28 MH [place] HEMATOLOGY WBC 4.2 3.7 - 10.4 0208 MH /2018 [place] [facility] HEMATOLOGY Hct 19.3 36.0 - 02/08 Result 48.0 /2018 Comment: [place] [facility] Critical Result(s) called to Elle Fuentes RN at 04/27/2017 20:13 by JING. Read back OK. HEMATOLOGY MCV 98.8 80.0 - 02/08 MH 98.0 /2018 [facility] HEMATOLOGY Hgb 7.0 12.0 - 02/08 Result 16.0 /2017 Comment: [place] [facility] Critical Result(s) called to Elle Fuentes RN at 04/27/2017 20:12 by GNF. Read back OK. HEMATOLOGY MCH 35.6 27.0 - 02/ MH 31.0 [place] HEMATOLOGY RBC 1.95 4.20 - 02/08 MH 5.40 /2017 [place] [facility] HEMATOLOGY MPV 8.6 7.4 - 10.4 02/ [facility] HEMATOLOGY Platelet 183 133 - 450 04/28 [facility] HEMATOLOGY MCHC 36.0 32.0 - 02/ MH 36.0 /2017 [place] [facility] HEMATOLOGY RDW 13.8 11.5 - 02 MH 14.5 /2017 [place] ELECTROLYTE Chloride Lvl 97 95 - 109 04/26 S [place] ELECTROLYTE Sodium Lvl 133 135 - 145 02/ MH S [place] ELECTROLYTE Creatinine 3.24 0.50 - 02 MH S Lvl 1.40 /2017 [place] [facility] ELECTROLYTE CO2 31 24 - 32 04/26 MH S [place] ELECTROLYTE Calcium Lvl 8.4 8.5 - 10.5 04/26 S [place] ELECTROLYTE AGAP 9.2 10.0 - 02 MH S 20.0 [place] [facility] ELECTROLYTE Glucose Lvl 75 70 - 99 04/26 S [place] ELECTROLYTE BUN 22 7 - 22 04/26 MH S [place] ELECTROLYTE eGFR 14 04/26 Result MH Comment: The [place] eGFR is calculated using the CKD-EPI formula. [...] IMMUNOLOGY Hep Bs Ag Negative Negative 04/22 MH *NA* /2017 [place] [facility] (04/22/17 9:31 AM) ANEMIA TRANSFERRIN 124 212 - 360 04/22 STUDY /2017 [place] [facility] ANEMIA Ferritin Lvl 1690 5 - 204 04/22 STUDY /2017 [place] [facility] ANEMIA % Satur Fe 16 12 - 57 04/22 STUDY [facility] ANEMIA UIBC 128 110 - 370 04/22 STUDY /2017 [place] [facility] ANEMIA TIBC 153 228 - 428 04/22 STUDY /2017 [facility] ANEMIA Iron 25 30 - 160 04/22 STUDY [place] CARDIAC Troponin-I 0.06 0.00 - 02 ENZYMES 0.40 [place] [facility] CARDIAC Total CK 70 12 - 191 04/22 ENZYMES [place] [facility] CARDIAC proBNP 04962 0 - 450 04/22 ENZYMES [place] [facility] CHEM PANEL Phosphorus 2.4 2.5 - 4.5 04/22 [place] [facility] CHEM PANEL Magnesium 2.2 1.8 - 2.4 04/22 Lvl [place] [facility] CHEM PANEL B/C Ratio 7 6 - 25 04/22 [place] [facility] CHEM PANEL A/G Ratio 1.0 0.7 - 1.6 04/22 [place] [facility] CHEM PANEL Globulin 2.9 2.7 - 4.2 04/22 [facility] CHEM PANEL Albumin Lvl 2.9 3.5 - 5.0 04/22 [place] [facility] CHEM PANEL Bili Total 0.6 0.2 - 1.3 04/22 [place] [facility] CHEM PANEL AST 18 0 - 37 04/22 [place] [facility] CHEM PANEL ALT 16 0 - 65 04/22 [place] [facility] CHEM PANEL Alk Phos 69 39 - 136 04/22 [facility] CHEM PANEL Total 5.8 6.4 - 8.4 04/22 [facility] HEMATOLOGY Monocytes # 0.5 0.0 - 0.8 / [facility] HEMATOLOGY Lymphocytes 0.6 1.0 - 5.5 / MH # /2017 [place] [facility] HEMATOLOGY Segs 83.9 45.0 - 02/ MH 75.0 [place] [facility] HEMATOLOGY Basophils 0.5 0.0 - 1.0 04/22 [place] [facility] HEMATOLOGY Eosinophils 0.7 0.0 - 4.0 04/22 [place] [facility] HEMATOLOGY Lymphocytes 8.2 20.0 - 02/ MH 40.0 [place] [facility] HEMATOLOGY Monocytes 6.7 2.0 - 12.0 02/ MH /2018 [place] [facility] HEMATOLOGY Segs-Bands # 5.7 1.5 - 8.1 02/ MH /2018 [facility] HEMATOLOGY INR 1.12 0.85 - 02/ MH 1.17 [facility] HEMATOLOGY PT 14.4 12.0 - 02/ MH 14.7 /2017 [place] [facility] HEMATOLOGY PTT 34.0 22.9 - 02 MH 35.8 /2017 [place] [facility] CARDIAC Troponin-I 0.04 0.00 - 02/ ENZYMES 0.40 /2017 [place] [facility] CARDIAC Total CK 85 12 - 191 / ENZYMES /2017 [place] [facility] CARDIAC CK MB Index <0.6 0.0 - 2.5 / ENZYMES /2017 [place] [facility] CARDIAC CK MB <0.5 0.5 - 3.6 / ENZYMES /2017 [place] [facility] BACTERIAL - MRSA by PCR Negative 04/22 SEROLOGY (04/22/17 2:38 AM) /2017 [facility] CHEM PANEL AST 18 0 - 37 04/22 MH /2017 [place] [facility] CHEM PANEL Alk Phos 74 39 - 136 04/22 /2017 [place] [facility] CHEM PANEL Bili Total 0.7 0.2 - 1.3 04/22 MH /2017 [place] [facility] CHEM PANEL Albumin Lvl 3.1 3.5 - 5.0 04/22 MH /2017 [place] [facility] CHEM PANEL Total 6.9 6.4 - 8.4 04/22 Protein [facility] CHEM PANEL Globulin 3.8 2.7 - 4.2 04/22 MH [place] CHEM PANEL A/G Ratio 0.8 0.7 - 1.6 04/22 MH /2017 [place] [facility] CHEM PANEL ALT 14 0 - 65 04/22 [facility] CHEM PANEL B/C Ratio 7 6 - 25 / MH /2017 [place] [facility] CHEM PANEL Magnesium 1.9 1.8 - 2.4 / MH Lvl /2018 [facility] HEMATOLOGY INR 1.10 0.85 - 04/22 MH 1.17 [place] [facility] HEMATOLOGY PT 14.2 12.0 - 02/ MH 14.7 /2018 [place] [facility] HEMATOLOGY PTT 37.7 22.9 - 02 MH 35.8 2018 [facility] HEMATOLOGY Eosinophils 0.1 0.0 - 0.5 / MH # /2018 [facility] Pathology Reports No Data Provided for This Section Diagnostic Reports Report Value Date Source Chest 2 views DX EXAM: Chest 2 views DX 04/27/2017 [facility] DATE: 04/27/2017 7:21 PM MANAGER LINE INDICATION: - Shortness of Breath COMPARISON: None. [...] Value Date Comments Source Systolic (mm Hg) 137 11/27/2017 [facility] Diastolic (mm Hg) 58 11/27/2017 [place] Respitory [facility] 18 [facility] 16 11/26/2017 [facility] Systolic (mm Hg) 120 11/26/2017 [facility] Diastolic (mm Hg) 100 11/26/2017 [place] Systolic (mm Hg) 131 11/26/2017 [place] [facility] Diastolic (mm Hg) 54 11/26/2017 [place] Respitory Rate 17 11/26/2017 [facility] Temperature Oral (F) 98.0 F 11/26/2017 [facility] Temperature Oral (F) 97.6 F 11/26/2017 [facility] Temperature Oral (F) 98.5 F 11/26/2017 [facility] Heart Rate 75 11/26/2017 [facility] Heart Rate 83 11/25/2017 [facility] BMI Calculated 24.18 11/25/2017 [facility] Weight 65.909 11/25/2017 [facility] Height 165.1 cm 11/25/2017 [facility] Heart Rate 86 11/25/2017 [facility] Heart Rate 66 04/29/2017 [facility] Systolic (mm Hg) 173 04/29/2017 [place] [facility] Diastolic (mm Hg) 50 04/29/2017 [place] Systolic (mm Hg) 176 04/29/2017 [facility] Diastolic (mm Hg) 50 04/29/2017 [place] Respitory Rate 17 04/29/2017 [facility] Heart Rate 57 04/29/2017 [facility] Temperature Oral (F) 98.4 F 04/29/2017 [facility] Temperature Oral (F) 97.8 F 04/29/2017 [facility] Heart Rate 57 04/29/2017 [facility] Respitory Rate 16 04/29/2017 [facility] Systolic (mm Hg) 159 04/29/2017 [facility] Diastolic (mm Hg) 75 04/29/2017 [facility] d Respitory Rate 16 04/29/2017 [facility] Temperature Oral (F) 98.4 F 04/29/2017 [facility] BMI Calculated 25.13 04/22/2017 [facility] Weight 68.5 04/22/2017 [facility] Height 165.1 cm 04/22/2017 [facility] BMI Calculated 25.13 04/22/2017 [facility] Weight 68.5 04/22/2017 [facility] Height 165.1 cm 04/22/2017 [facility] Height 165.1 cm 04/22/2017 [facility] Encounters Location Location Encounter Encounter Reason Attending ADM DC Stat us Source Details Type Number For Provider Date Date Visit [facility] [id number] [facility] [id number] Peter 11/25 11/27 [facility] Robert /2017 [facility] Procedures Procedure Code Date Perfomer Comments Source Bilateral extraction [id number] [facility] of cataracts Caesarean section [id number] [facility] Carotid angiogram [id number] [facility] Cholecystectomy [id number] [facility] nd Provision of stents [id number] Kid[facility] Pe [facility] or bite stents blocks<sup>1</sup> placed Assessment and Plan Assessment and Plan Date Source Extracted from:Title: Nephrology progress note 11/27/2017 [facility] Author: Eliseo Schultz MD Date: 11/26/17 Impression and Plan 87-year-old female with history of hyper tension, diabetes, end-stage renal disease on hemodialysis, congestive heart failure, chronic anemia, who presented to emergency room complaining of shortness of breath. 1. End-stage renal disease on hemodialy sis. Hemodialysis on Tuesday and Tuesday. Last hemodialysis last Tuesday. Access left upper extremity AV fistula. Net Trainer Dr. Guardado. No hyperkalemia. Euvolemic. S/p Urgent [...] for HD today. Any question please call [phone] Extracted from:Title: Nephrology consultation. Author: Eliseo Schulzt MD Date: 11/25/17 Impression and Plan 87-year-old female with history of hyper tension, diabetes, end-stage renal disease on hemodialysis, congestive heart failure, chronic anemia, who presented to emergency room complaining of shortness of breath. 1. End-stage renal disease on hemodialy sis. Hemodialysis on Tuesday and Tuesday. Last hemodialysis last Tuesday. Access left upper extremity AV fistula. Net Trainer Dr. Guardado. No hyperkalemia. Clinically hypervolemic. 2. Severe anemia. 3. Fluid overload. 4. Chronic congestive heart failure. 5. Diabetes mellitus type 2. 6. Thrombocytopenia. Recommendation. Stat hemodialysis with transfusion of 2 units of packed RBC. Epogen 7,000 units subcutaneous 3 times daily. Anemia workup. Discussed case with Dr. Jones. Thank you for the consultation, any question please call [phone] Extracted from:Title: History and Physical Author: Bruno [...] LOS: 2 Midnights, Bruno Jones DO, Admit Review/Approve Yes, Isolation: No Isolation/Standard Precautions 5.Benign hypertension Started on home medications, uncontrolle dpatient was transferred to [facility] for further blood pressure monitoring. 6.Diabetes [...] Patient evaluated in the emergency room at [facility]. Tra nsfer for fluid overload and [...] DVT prophylaxis. Heparin subcutaneous. Plan of Care No Data Provided for This Section Social History Social History Date Source Social History TypeResponse 11/25/2017 [facility] Smoking Status Former smoker; Type: Cigarettes; Previou [...]
--- OUTSIDE RECORDS SUMMARY | 2019-10-11 12:38 | XMS REPORT | Summary of Care ---
:1930 Author Organization [facility] Address [address] [place] [address] Care Team Providers Name Role Phone Brielle Anna Marie Jackson Primary Care Provider Reason for Visit Reason Comments Exposure Encounter Details Date Type Department Care Team Description 10/06/2019 Laboratory Only [facility] Family Kay Rsoado FNP [address] [place] [address] [address] Suspected Covid-19 Medicine - [facility], Adc Fam Pob I Virus Infection [address] [place] [address] (Primary D x) [place] [address] Allergies Active Allergy Reactions Severity Noted Date Comments Fexofenadine Hcl Nausea and/or Vomiting 05/16/2018 Ciprofloxacin (Bulk) Nausea and/or Vomiting 05/16/2018 Gatifloxacin Unknown - See comments 09/25/2015 Penicillins Rash 05/16/2018 Sulfa (Sulfonamide Antibiotics) Nausea and/or Vomiting 05/16/2018 documented as of this encounter (statuses as of 10/06/2019) Medications Medication Sig Dispensed Refills Start Date [...] tablet CEPHALEXIN Take 500 mg by 0 Acti ve ORALIndications: UTI for mouth 3 (three) 10 days. On 08/28 day times daily. Indications: UTI for 10 days. On 08/28 day traMADol 50 mg Take 1 tablet by 40 tablet 0 10/10/2018 Active tabletIndications: mouth every 6 Malfunction of (six) hours as arteriovenous dialysis needed for Pain fistula, subsequent (scale 7-10). encounter documented as of this encounter (statuses as of 10/06/2019) Active Problems Problem Noted Date ESRD (end stage renal disease) 09/28/2018 [address] AV fistula malfunction, initial encounter Overview: Added automatically from request for rachel holder [id number] documented as of this encounter (statuses as of 10/06/2019) Social History Tobacco Use Types Packs/Day Years Used Date Never Smoker Smokeless Tobacco: Never Used Sex Assigned at Date Recorded Not on file Job Start Date Occupation Industry Not on file Not on file Not on file Travel History Travel Start Travel End No recent travel history available. COVID-19 Exposure Response Date Recorded In the last month, have you been in contact with Yes 10/06/2019 11:48 AM CDT someone who was confirmed or suspected to have Coronavirus / COVID-19? documented as of this encounter Last Filed Vital Signs Not on filedocumented in this encounter Plan of Treatment Name Type Priority Associated Diagnoses Order S chedule COVID-19 (PCR MOLECULAR LAB Routine Suspected Covid-1 9 Virus Expected: 10/06/2019, TESTING) Infection Expires: 2020 Health Maintenance Due Date Last Done Comments DTaP,Tdap,and Td Vaccines (1 - Tdap) 1941 Zoster Recombinant Vaccine (SHINGRIX) (1 of 2) 1980 Medicare Wellness Visit 09/27/1995 Osteoporosis Screening 09/27/1995 PNEUMOCOCCAL VACCINES 65+ (1 of 2 - PCV13) 09/27/1995 INFLUENZA VACCINE (#1) 2019 Depression Screening 12/27/2019 12/26/2018 documented as of this encounter Implants Implanted Type Area Farm Equipment Service Technician Device Shelf Model / Identifier Expiration Date Ser ial / Lot Graft, [place] Propaten Vascular Standard-W alled 6mm 40cm #[id number] - [id number] Left: Arm W L [place] 12/14/2021 [id number] / Implanted: Qty: 1 on 09/28/2018 by Silvana Sanchez am, MD at [facility] [id number] / 0 documented as of this encounter Results Not on filedocumented in this encounter Visit Diagnoses Diagnosis Suspected Covid-19 Virus Infection - [facility] documented in this encounter Additional Health Concerns Infection Onset Date Last Indicated Resolved Time COVID-19 Rule Out 10/06/2019 10/06/2019 documented as of this encounter Insurance Payer Benefit Plan Subscriber ID Effective Dates Phone Address Type / Group [employer] - CHOICE CARE [id number] 2018-Linda smith Adv MANAGED t PPO MEDICARE documented as of this encounter
--- OUTSIDE RECORDS SUMMARY | 2019-10-11 12:38 | XMS REPORT | Summary of Care ---
:1930 Author Organization [facility] Address [address] [place] [address] Care Team Providers Name Role Phone Anna Marie Hannah Primary Care Provider Reason for Visit Reason Comments Results Encounter Details Date Type Department Care Team Description 10/07/2019 Telephone [facility] Family Medicine Campbell Rubin FNP Results - [address] [place] [address] [place] [address] [phone] Allergies Active Allergy Reactions Severity Noted Date Comments Fexofenadine Hcl Nausea and/or Vomiting 05/16/2018 Ciprofloxacin (Bulk) Nausea and/or Vomiting 05/16/2018 Gatifloxacin Unknown - See comments 09/25/2015 Penicillins Rash 05/16/2018 Sulfa (Sulfonamide Antibiotics) Nausea and/or Vomiting 05/16/2018 documented as of this encounter (statuses as of 10/07/2019) Medications Medication Sig Dispensed Refills Start Date [...] as of this encounter (statuses as of 10/07/2019) Active Problems Problem Noted Date ESRD (end stage renal disease) 09/28/2018 Dialysis AV fistula malfunction, initial encounter Overview: Added automatically from request for rachel holder [id number] documented as of this encounter (statuses as of 10/07/2019) Social History Tobacco Use Types Packs/Day Years [...] of this encounter Implants Implanted Type Area Typewriter Repairer Device Shelf Model / Identifier Expiration Date Ser ial / Lot Graft, [place] Propaten Vascular Standard-W alled 6mm 40cm #[id number] - [id number] GRAFT Left: Arm W L [place] 12/14/2021 [id number] / Implanted: Qty: 1 on 09/28/2018 by Silvana Sanchez am, MD at [facility] [id number] / 0 documented as of this encounter Results Not on filedocumented in this encounter Additional Health Concerns Infection Onset Date Last Indicated Resolved Time COVID-19 Rule Out 10/06/2019 10/06/2019 10/07/2019 12: 56 PM CDT COVID-19 Confirmed 10/06/2019 10/06/2019 documented as of this encounter Insurance Payer Benefit Plan Subscriber ID Effective Dates Phone Address Type / Group [employer] - CHOICE CARE [id number] 2018-Linda smith Adv MANAGED t PPO MEDICARE documented as of this encounter
--- OUTSIDE RECORDS SUMMARY | 2019-10-11 12:38 | XMS REPORT | Continuity of Care Document ---
:1930 Author Organization [facility] t Address [address] [place] [address] Support Name Relationship Address Phone Santos Child [id number] [place] [address] Santos Other [phone] [place] [address] SANTOS Unavailable Unavailable [place], [facility] Team Providers Name Role Phone Raudel Marie MD Primary Care Physician Mahi NJP Attending Clinician Lab, Fam Pob I Attending Clinician Unavailable Doctor Unassigned, Name Attending Clinician Unavailable Nat VELEZ Attending Clinician Unavailable Rosie DE LOS SANTOS I. Attending Clinician Steph DE LOS SANTOS Attending Clinician Poppy Pratt MD Attending Clinician Yana DE LOS SANTOS Attending Clinician Robert Attending Clinician Jocy Attending Clinician Nat VELEZ Admitting Clinician Unavailable Robert Admitting Clinician Jocy Admitting Clinician Payers Payer Name Policy Type Policy Number Effective Date Expiration Source Date HUMANA - MEDICARE [id number] xxxxxxxxx [place]ADISON Rod [place] [id number] Problems Condition Condition Condition Status Onset Resolution Last Treating Co mments Source Name Details Category Date Date Treatment Clinician Date Essential Essential Disease Active 2018-03 MADISON Rod hypertensi hypertensi 04-19 Grazyna kes - on on 00:00: Medical 00 Center Anemia of Anemia of Disease Active 2018- [facility] chronic chronic 04-19 [facility] disease disease [facility] Acute Acute Disease Active 2018- [facility] encephalop encephalop 04-19 Grazyna kes - athy athy 00:00: Medical 00 Center Acute Acute Disease Active 2018- [facility] St ischemic ischemic 04-18 [facility] - stroke stroke 00:[facility] 00 Center CHF, Diagnosis Active 2017-12-23 Mem oria SYMPTOMATI 11-25 11:55:00 l C ANEMIA CHF, 00:00: Hugo SYMPTOMATI 00 C ANEMIA Active 11/25/2017 [facility] Hugo CHF Diagnosis Active 2017-04-21 Mem oria EXACERBATI 04-21 23:00:00 l ON CHF 00:00: [place] EXACERBATI 00 ON Active 8 [facility] [place] ACUTE Diagnosis Active 2017-05-03 Mem oria CONGESTIVE 04-21 21:59:00 l HEART ACUTE 00:00: [place] FAILURE, CONGESTIVE 00 ESRD HEART FAILURE, ESRD Active 04/21/2017 [facility] Hip pain Problem Active 2012-032018-06-15 Mem oria (finding) 0-16 12:10:10 l Hip pain 00:00: Rony n (finding) 00 Active 01/03/2013 Problem 06/15/2018 Data migrated from [employer] on 08/17/14. [facility] Iron Problem Active 2012-032018-06-15 Memor ia deficiency 0-09 12:10:10 l anemia Iron 00:00: [place] (disorder) deficiency 00 anemia (disorder) Active 12/27/2012 Problem 06/15/2018 Data migrated from [employer] on 08/17/14. [facility] Loss of Problem Active 2012-032018-06-15 Migel lalita appetite 0-09 12:10:10 l (finding) Loss of 00:00: Herm dave appetite 00 (finding) Active 12/27/2012 Problem 06/15/2018 Data migrated from [employer] on 08/17/14. [facility] Gastroesop Problem Active 2018-06-15 M emoria hageal 6-10 12:10:10 l reflux 00:00: Hugo disease Gastroesop 00 (disorder) hageal reflux disease (disorder) Active 08/28/2012 Problem 06/15/2018 Data migrated from [employer] on 08/17/14. [facility] Lung mass Problem Active 2018-06-15 Me moria (finding) 2-13 12:10:10 l Lung 00:00: [place] mass 00 (finding) Active 05/03/2012 Problem 06/15/2018 Data migrated from [employer] on 08/17/14. [facility] Thyroid Problem Active 2018-06-15 Migel lalita nodule 2-13 12:10:10 l (disorder) Thyroid 00:00: Her osullivan nodule 00 (disorder) Active 05/03/2012 Problem 06/15/2018 Data migrated from [employer] on 08/17/14. [facility] Osteoarthr Problem Active 2011-032018-06-15 M emoria itis of 0-17 12:10:10 l knee 00:00: [place] (disorder) Osteoarthr 00 itis of knee (disorder) Active 01/05/2012 Problem 06/15/2018 Data migrated from [employer] on 08/17/14. [facility] Long-term Problem Active 2018-06-15 Me moria drug 8-13 12:10:10 l therapy 00:00: [place] (procedure Long-term 00 ) drug therapy (procedure ) Active 11/01/2011 Problem 06/15/2018 Data migrated from [employer] on 08/17/14. [facility] Malaise Problem Active 2018-06-15 Migel lalita and 8-13 12:10:10 l fatigue Malaise 00:00: Rony n (finding) and 00 fatigue (finding) Active 11/01/2011 Problem 06/15/2018 Data migrated from [employer] on 08/17/14. [facility] Abnormal Problem Active 2018-06-15 Mem oria cytology 10-17 12:10:10 l findings Abnormal 00:00: Herm dave (finding) cytology 00 findings (finding) Active 10/18/2011 Problem 06/15/2018 Data migrated from [employer] on 08/17/14. 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 [facility] hemodialys hemodialys Grazyna goff - is [facility] Center End stage Problem 2018-06-15 Me moria renal 12:10:10 l disease End Hugo stage renal disease 06/15/2018 [facility] Hypertensi Problem 2018-06-15 M emoria ve heart 12:10:10 l and [place] chronic Hypertensi kidney ve heart disease and with heart chronic failure kidney and with disease stage 5 with heart chronic failure kidney and with disease, stage 5 or end chronic stage kidney renal disease, disease or end stage renal disease 06/15/2018 [facility] Hypo-osmol Problem 2018-06-15 M emoria ality and 12:10:10 l hyponatrem Rony n ia Hypo-osmol ality and hyponatrem ia 06/15/2018 [facility] Nontoxic Problem 2018-06-15 Mem oria single 12:10:10 l thyroid Nontoxic Sandy nn nodule single thyroid nodule 06/15/2018 [facility] Type 2 Problem 2018-06-15 Memor ia diabetes 12:10:10 l mellitus 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 06/15/2018 [facility] Pure Problem 2018-06-15 Memor ia hyperchole 12:10:10 l sterolemia Pure Rony n , hyperchole unspecifie sterolemia d , unspecifie d 06/15/2018 [facility] Heart Problem 2018-06-15 Memor ia failure, 12:10:10 l unspecifie Heart Sandy nn d failure, unspecifie d 06/15/2018 [facility] Unilateral Problem 2018-06-15 M emoria primary 12:10:10 l osteoarthr Rony n itis, Unilateral unspecifie primary d knee osteoarthr itis, unspecifie d knee 06/15/2018 [facility] Anemia in Problem 2018-06-15 Me moria other 12:10:10 l chronic Anemia Hugo diseases in other classified chronic elsewhere diseases classified elsewhere 06/15/2018 [facility] Thrombocyt Problem 2018-06-15 M emoria openia, 12:10:10 l unspecifie Rony n d Thrombocyt openia, unspecifie d 06/15/2018 [facility] Hypertensi Problem 2018-06-15 M emoria ve urgency 12:10:10 l Hugo Hypertensi ve urgency 06/15/2018 [facility] Gastro-eso Problem 2018-06-15 M emoria phageal 12:10:10 l reflux Hugo disease Gastro-eso without phageal esophagiti reflux s disease without esophagiti s 06/15/2018 [facility] Nicotine Problem 2018-06-15 Mem oria dependence 12:10:10 l , Nicotine Rony n cigarettes dependence , , uncomplica cigarettes ella , uncomplica ella 06/15/2018 [facility] Dependence Problem 2018-06-15 M emoria on renal 12:10:10 l dialysis Hugo Dependence on renal dialysis 06/15/2018 [facility] Acute Problem 2017-08-05 Memor ia respirator 12:26:41 l y failure Acute Rony n with respirator hypoxia y failure with hypoxia 08/05/2017 [facility] Acute on Problem 2017-08-05 Mem oria chronic 12:26:41 l diastolic Acute on Her osullivan (congestiv chronic e) heart diastolic failure (congestiv e) heart failure 08/05/2017 [facility] Patient's Problem 2017-08-05 Me moria noncomplia 12:26:41 l nce with Hugo other Patient's medical noncomplia treatment nce with and other regimen medical treatment and regimen 08/05/2017 [facility] Anemia in Problem 2017-08-05 Me moria chronic 12:26:41 l kidney Anemia [place] disease in chronic kidney disease 08/05/2017 [facility] Other Problem 2017-08-05 Memor ia malaise 12:26:41 l Other Hugo malaise 08/05/2017 [facility] Personal Problem 2017-08-05 Mem oria history of 12:26:41 l nicotine Personal Herm dave dependence history of nicotine dependence 08/05/2017 [facility] Benign Problem Active 2018-06-15 Memor ia hypertensi 12:10:10 l on Benign Hugo (disorder) hypertensi on (disorder) Active Problem 06/15/2018 Data migrated from [employer] on 08/17/14. [facility] Constipati Problem Active 2018-06-15 M emoria on 12:10:10 l (disorder) Rony n Constipati on (disorder) Active Problem 06/15/2018 Data migrated from [employer] on 08/17/14. [facility] Diabetes Problem Active 2018-06-15 Mem oria mellitus 12:10:10 l (disorder) Diabetes He rmann mellitus (disorder) Active Problem 06/15/2018 Data migrated from [employer] on 08/17/14. [facility] Hyperchole Problem Active 2018-06-15 M emoria sterolemia 12:10:10 l (disorder) Rony n Hyperchole sterolemia (disorder) Active Problem 06/15/2018 Data migrated from [employer] on 08/17/14. [facility] Impaired Problem Active 2018-06-15 Mem oria glucose 12:10:10 l tolerance Impaired Her osullivan (disorder) glucose tolerance (disorder) Active Problem 06/15/2018 Data migrated from [employer] on 08/17/14. [facility] HEART Diagnosis Active 2017-12-23 Mem oria FAILURE, 11:55:00 l UNSPECIFIE HEART Sandy nn D FAILURE, UNSPECIFIE D Active [facility] ACUTE Diagnosis Active 2017-05-03 Mem oria DIASTOLIC 21:59:00 l (CONGESTIV ACUTE Sandy nn E) HEART DIASTOLIC FAILU (CONGESTIV E) HEART FAILU Active [facility] Anemia, Problem 2017-032018-06-15 2018-06-15 Memoria unspecifie 04-19 12:10:10 12:10:10 l d Anemia, 06:06: Hugo unspecifie 01 d 02/17/2018 06/15/2018 [facility] Allergies, Adverse Reactions, Alerts Allergy [...] Center s Gatiflox Propensi Active 2018-[address] [facility] acin ty to 04-18 [facility] - adverse 00:00: Medical reaction 00 Center s Fexofena Propensi Active Other (See Karlene - [...] a dine<sup dine<sup l >3</sup> >3</sup> Rony n Tequin Tequin Active Memoria l Hugo DULoxeti DULoxeti Active Memori a ne<sup>5 ne<sup>5 l </sup> </sup> Hugo Social History Social Habit Start Date Stop Date Quantity Comments Source Sex Assigned At [facility] Alcohol intake 2015-09-30 2015-09-30 Current [facility] thodist 00:00:00 00:00:00 non-drinker of alcohol (finding) Smoking Status Start Date Stop Date Source Never smoker [facility] Social History 2017-11-25 22:03:08 2017-11-25 22:03:08 [facility] Medications Ordered Filled Start Stop Current Ordering Indication Dosage Frequency Signature Comments Components Source Medication Medication Date Date Medication? Clinician (SIG) Name Name celia 2018-03 2019- No 1{tbl} Take 1 C [...] every 12 (twelve) hours for 7 days. celia 2018-03 Yes 500mg Take [address] en 1-29 mg by [facility] - (TYLENOL) 18:01: mouth Medical 500 MG 30 every 6 Center tablet (six) hours as needed for Pain. acetaminoph 2018-03 Yes 1{tbl} Take [address] en-codeine - tablet by Luke s - (TYLENOL 18:01: mouth Medical #3) 300-30 30 every 4 Center mg per (four) tablet hours as needed for Pain. atorvastati 2018-03 Yes 80mg QD Take [address] [facility] n (LIPITOR) 04-18 by mouth Luke s - 80 MG 18:01: daily. Medical tablet 30 Center NIFEdipine 2018-03 Yes 90mg Q.5D Take [address] (ADALAT CC) 04-18 by mouth 2 Grazyna kes - 90 MG 24 hr 18:01: (two) Medic al tablet 30 times Center daily. ramipril 2018-03 Yes 10mg QD Take [address] (ALTACE) 10 04-18 by mouth Luke s - MG capsule 18:01: daily. Medic al 30 Center sertraline 2018-03 Yes 50mg QD Take [address] (ZOLOFT) 50 04-18 by mouth Luke s - MG tablet 18:01: daily. Medica l 30 [place] cholecalcif 2018-03 Yes 5000U QD Take 5,[address] [facility] sarahy, - Units by [facility] - vitamin D3, 18:01: mouth Medic al 1,000 unit 30 daily. [place] capsule melatonin 3 2018-03 Yes 5mg Take [...] Take [address] mononitrate 1-29 by mouth Luke s - (IMDUR) 30 18:01: daily. Medic al MG 24 hr 29 Center tablet doxazosin 2018-03 Yes 8mg Q.5D Take [address] (CARDURA) 8 1-29 by mouth 2 Grazyna kes - MG [...] B-12, 1000 29 daily. Center MCG tablet Hydralazine No Notes: Migel lalita Hydrochlori 11-27 (Same as: l de 100 MG 05:00: Apresoline He rmann Oral Tablet 00 ) May interfere w/enteral feedings Take With Food Hydralazine Yes 100 mg = 1 Memoria Hydrochlori 11-27 tab, PO, l de 100 MG 00:11: Q8H, # 90 Her osullivan Oral Tablet 00 tab, 2 Refill(s), Pharmacy: [facility] #[id number] Doxazosin No Notes: Memori a 11-26 (Same as: l 14:00: Cardura) Hugo Clonidine No Notes: Memori a Hydrochlori 11-26 (Same As: l de 0.3 MG 14:00: Catapres) Her osullivan Oral Tablet 00 isosorbide No Notes: Memor ia mononitrate 11-26 (Same l extended 14:00: as:Imdur) Herm dave release "Do Not Crush" Take on empty stomach/ full glass of water. Do not crush Plavix No Notes: Memoria 11-26 (Same As: l 14:00: Plavix) Hugo Aspirin No Notes: Do Memor ia 11-26 not crush l 14:00: or chew. Hugo (Same As: Ecotrin) Epogen No Notes: Memoria 11-26 (Same as: l 04:00: Procrit) epoetin ana rosa 3000 unit/1 ml VL. For dialysis use only WASTE: F/P - Red; E -Red MEDICATION WASTE Product Size: 3000 unit Product Wasted: ___ unit epoetin No Notes: Memoria ana rosa 11-26 (Same as: l 04:00: Procrit) epoetin ana rosa 89323 unit/1 ml VL. For dialysis use only. (Procrit) WASTE: F/P - Red; E -Red MEDICATION WASTE Product Size: 44990 unit Product Wasted: ___ unit Clonidine Yes [...] MG 02:00: Apresoline He rmann Oral Tablet 00 ) May interfere w/enteral feedings Take With Food NIFEdipine No Notes: Memor ia 90 mg oral 11-26 (Same as: l tablet, 01:35: Adalat CC, Herm dave extended 00 Procardia release XL) Give on empty stomach. Take 1 hour before or 2 hours after meal; "Avoid grapefruit and grapefruit juice". Do not crush Hydralazine No 5 mg, Memor ia 11-26 Route: l 00:59: IVP, ONCE, Hugo Dosing Weight 65.909, kg, Start date: 11/25/17 19:59:00 CDT, Stop date: 11/25/17 19:59:00 CDT Lipitor Yes 80 mg, PO, Migel lalita 11-25 Daily, at l 22:16: bedtime, 0 [place] Refill(s) Sodium No 1,000 mL, Memori a Chloride 11-25 1,000 l 0.9% 21:55: ml/hr, [place] (Bolus) IV 00 Infuse Over: 1 hr, Route: IV, 1,000, Drug form: INJ, PRN, Priority: STAT, Dosing Weight 68.5 kg, Start date: 11/25/17 16:55:00 CDT, Duration: 30 day, Stop date: 12/25/17 16:54:00 CDT, PRN Dialysis Sodium No 250 mL, Memoria Chloride 11-25 Rate: To l 0.9% 21:49: prime line [place] (titrate) 00 and flush 250 mL remaining blood products., Dosing Weight 68.5, kg, Route: IV, Total Volume: 250, Start Date: 11/25/17 16:49:00 CDT, Duration: 30 day, Stop date: 12/25/17 16:48:00 CDT, Replace Every: 24 hr Hydralazine No Notes: Migel lalita 11-25 (Same as: l 19:56: Apresoline Hugo 00 ) Push over 5 minutes Acetaminoph No Notes: Do M emoria en 11-25 not exceed l 19:54: 4 gm/day. Hugo (Same as: Tylenol) Acetaminoph No Notes: Migel lalita en 325 MG / 11-25 (Same as: l Hydrocodone 19:54: Klemme Sandy nn Bitartrate 00 325/5) Do 5 MG Oral not exceed Tablet 4gm/day of acetaminop hen. remove No 1 patch, Memoria patch -16 Route: l 10:59: TOP, Drug [place] 00 form: ERFILM, Q7D, Start date: 05/06/17 4:59:00 FIRST BEATER, Duration: 30 day, Stop date: 06/03/17 9:00:00 CDT Clonidine Yes 0.2 mg = 2 Me moria Hydrochlori 2-09 tab, PO, l de 0.1 MG 23:26: BID, # 30 Her osullivan Oral Tablet 00 tab, 0 Refill(s), Pharmacy: [facility] #[id number] losartan 50 Yes 100 mg = 2 Memoria mg oral 2-09 tab, PO, l tablet 23:26: Q12H, # 30 Sandy nn 00 tab, 0 Refill(s), Pharmacy: [facility] #[id number] Hydralazine Yes 200 mg = 2 Memoria Hydrochlori 2-09 tab, PO, l de 100 MG 23:26: TID, 0 Rony n Oral Tablet 00 Refill(s) Clonidine No Notes: Memori a Hydrochlori 2-09 (Same As: l de 0.1 MG 23:00: Catapres) Her osullivan Oral Tablet 00 normal No 1,000 mL, Memori a saline 0.9% 2 Rate: 75 l IV 1,000 mL 16:55: ml/hr, Herm dave 00 Infuse over: 13.3 hr, Route: IV, Dosing Weight 68.5 kg, Total Volume: 1,000, Start date: 04/29/17 10:55:00 FIRST BEATER, Duration: 30 day, Stop date: 05/29/17 10:54:00 CDT, 1.79, m2 Hydralazine No 50 mg, 1 Me moria Hydrochlori 2-09 tab, l de 50 MG 15:00: Route: PO, Her osullivan Oral Tablet 00 Drug form: TAB, TID, Dosing Weight 68.5, kg, Start date: 04/29/17 9:00:00 FIRST BEATER, Duration: 30 day, Stop date: 05/28/17 17:00:00 FIRST BEATER 168 HR No Notes: Memoria Clonidine 2-09 Patch l 0.99807 11:00: delivers Rony n MG/HR 00 0.1 mg/24 Transdermal hours; Patch Patch is applied weekly. "Remove old patch before applicatio n of new patch" (Same As: Catapres-T TS-1) Kayexalate No Notes: Memor ia 2-08 (sodium l 18:50: polystyren [place] 00 e sulfonate 15 gm/60 ml TRINITY) Shake well before use. (Same as: Kayexalate , SPS) sodium 2017- No 2,000 mL, Memori a chloride 2-08 0 ml/hr, l 0.9% 17:40: Infuse [place] (Priming 00 Over: 0 and hr, Route: Maintenance IV, 2,000, ) Drug form: INJ, PRN, Dosing Weight 68.5 kg, Start date: 04/28/17 11:40:00 FIRST BEATER, Duration: 24 hr, Stop date: 04/29/17 11:39:00 FIRST BEATER, For Use by Dialysis nurse ONLY, PRN Dialysis Hydralazine No Notes: Migel lalita 2-07 (Same as: l 09:48: Apresoline ) Push over 5 minutes Clonidine No Notes: Memori a 2-06 (Same As: l 15:00: Catapres) Losartan No Notes: Memoria 2-06 (Same as: l 03:00: Cozaar) NIFEdipine No Notes: Memor ia 90 mg oral 2-06 (Same as: l tablet, 03:00: Adalat Hugo extended 00 CC,Procard release ia XL) "Do Not Crush" "Avoid grapefruit and grapefruit juice" Melatonin No Notes: Memori a 2-06 (Same as: l 00:57: Melatonin) Melatonin No 2.5 mg, 1 Mem oria 2.5 mg oral 2-05 cap, l capsule 23:50: Route: PO, Dosing Weight 68.5, kg, Bedtime, PRN as needed for insomnia, Start date: 04/25/17 17:50:00 FIRST BEATER, Duration: 30 day, Stop date: 05/25/17 17:49:00 FIRST BEATER heparin No 10,000 Memoria 2-05 unit, 10 l 13:45: mL, Route: [place] 00 DIALYSIS, Drug form: INJ, ONCALL, Dosing Weight 68.5, kg, PRN Dialysis, Start date: 04/25/17 7:45:00 FIRST BEATER, Duration: 1 doses or times, Stop date: Limited # of times albumin No Notes: Lot Migel lalita human 25% 2-05 #: l intravenous 13:44: [place] solution 00 ___ Mfg: (Same as: Plasbumin- [...] 1,000, Priority: NOW, Start date: 04/25/17 7:43:00 FIRST BEATER, Duration: 30 day, Stop date: 05/25/17 7:42:00 FIRST BEATER, 1.79, m2 normal No 1,000 mL, Memori a saline 0.9% 2-05 Rate: 1 l IV 1,000 mL 13:42: ml/hr, Herm dave 00 Infuse over: 1000 hr, Route: DIALYSIS, Dosing Weight 68.5 kg, Total Volume: 1,000, Priority: NOW, Start date: 04/25/17 7:42:00 FIRST BEATER, Duration: 30 day, Stop date: 05/25/17 7:41:00 FIRST BEATER, 1.79, m2 Isosorbide No Notes: Memor ia Dinitrate 2-03 (Same l 15:00: as:Isordil ) Take on empty stomach/ full glass of water Epogen No Notes: Memoria 2-02 (Same as: l 23:00: Procrit) epoetin ana rosa 80755 unit/1 ml VL. For dialysis use only. (Procrit) WASTE: F/P - Red; E -Red MEDICATION WASTE Product Size: 12839 unit Product Wasted: ___ unit Sertraline No Notes: Memor ia 2-02 (Same as: l 23:00: Zoloft) Hugo 00 Doxazosin No Notes: Memori a 2-02 (Same as: l 23:00: Cardura) [place] Docusate No Notes: Memoria Sodium 100 2-02 (Same as: l MG Oral 23:00: Colace) Hugo Capsule (Do Not Crush) Vitamin D3 No Notes: Memor ia 1000 intl 2- Same as : l units oral 23:00: Vitamin D3 H ermann tablet 00 Tums No Notes: Memoria 2-02 (Same As: l 23:00: Tums) [place] Calcium Carbonate 500 mg = 200 mg elemental calcium Dose = mg calcium carbonate ( mg elemental calcium) Hydralazine No Notes: Migel lalita Hydrochlori 2-02 (Same as: l de 100 MG 19:00: Apresoline He rmann Oral Tablet ) May interfere w/enteral feedings Take With Food heparin No Notes: Memoria 2-02 porcine l 15:00: heparin [place] Plavix No Notes: Memoria 2-02 (Same As: l 15:00: Plavix) Hugo 00 Aspirin No Notes: Do Memor ia 2-02 not crush l 15:00: or chew. Hugo (Same As: Ecotrin) Hydralazine No Notes: Migel lalita 2-02 (Same as: l 15:00: Apresoline [place] ) May interfere w/enteral feedings Take With [...] tab, PO, l tablet 10:02: QPM, 0 Refill(s) doxazosin 4 Yes 4 mg = 1 Me moria mg oral 2-02 tab, PO, l tablet 10:02: QPM, 0 Refill(s) losartan 50 No 50 mg = 1 M emoria mg oral 2-02 tab, PO, l tablet 10:02: QAM & PM, Rony n 00 0 Refill(s) Tums Yes 1,000 mg, Memoria 2-02 CHEW, QAM l 10:02: & PM, 0 Hugo 00 Refill(s) Docusate Yes 100 mg = 1 Mem oria Sodium 100 2-02 cap, PO, l MG Oral 10:02: QAM & PM, Sandy nn Capsule 00 0 Refill(s) Vitamin D3 Yes 5,000 Memori a 5000 intl 04-22 IntlUnit = l units oral 10:02: 1 cap, PO, H ermann capsule 00 QPM, # 30 cap, 1 Refill(s) Hydralazine No Notes: Migel lalita - (Same as: l 09:57: Apresoline ) Push over 5 minutes Labetalol No 20 mg, 4 Migel lalita 2-02 mL, Route: l 09:57: IVP, Drug form: INJ, ONCE, Dosing Weight 68.5, kg, Start date: 04/22/17 3:57:00 FIRST BEATER, Stop date: 04/22/17 3:57:00 FIRST BEATER potassium No Notes: Memori a chloride 20 04-22 (Same as: l mEq oral 09:57: K-Dur 20) Herm dave , "Do Not extended Crush" release With food and full glass of water Magnesium No Notes: Memori a Sulfate 04-22 WASTE: F/P l 09:57: - Sink; E - Municipal Trash Bin Isosorbide Yes 90 mg, PO, M emoria Dinitrate 2-02 QAM, 0 l 09:48: Refill(s) Hydralazine No 100 mg = 1 Memoria Hydrochlori 2-02 tab, PO, l de 100 MG 09:48: TID, 0 Rony n Oral Tablet 00 Refill(s) clopidogrel Yes 75 mg = 1 M emoria 75 MG Oral 2-02 tab, PO, l Tablet 09:48: QAM, 0 [place] [Plavix] 00 Refill(s) Aspirin Yes 81 mg, PO, Migel lalita 2-02 QAM, 0 l 09:48: Refill(s) [place] Hydralazine No Notes: Migel lalita 2- (Same as: l 07:46: Apresoline ) Push [...] No 12.5 gm, Memor ia 50% Syringe 02 25 mL, l 07:43: Route: IVP, Drug Form: INJ, Dosing Weight 68.5, kg, PRN, PRN Blood Glucose Results, Start date: 04/22/17 1:43:00 FIRST BEATER, Duration: 30 day, Stop date: 05/22/17 1:42:00 FIRST BEATER Glucagon No 1 mg, Memoria 2- Route: IM, l 07:43: Drug form: PDR/INJ, PRN, Dosing Weight 68.5, kg, PRN Blood Glucose Results, Start date: 04/22/17 1:43:00 FIRST BEATER, Duration: 30 day, Stop date: 05/22/17 1:42:00 FIRST BEATER NIFEdipine No Notes: Memor ia 60 mg oral 04-22 (Same as: l tablet, 07:40: Adalat CC, Herm dave extended Procardia release XL) Give on empty stomach. Take 1 hour before or 2 hours after meal; "Avoid grapefruit and grapefruit juice". Do not crush Losartan No Notes: Memoria 04-22 (Same as: l 07:40: Cozaar) Acetaminoph No Notes: Do M emoria en 04-22 not exceed l 07:26: 4 gm/day. (Same as: Tylenol) aspirin 2015- Yes 81mg QD Take 81 mg [place] (ECOTRIN) 7-07 by mouth Method i 81 MG 15:36: daily. st enteric 05 coated tablet atorvastati Yes 80mg QD Take 80 mg [place] n (LIPITOR) 7-07 by mouth Meth evi 80 MG 15:36: daily. st tablet 05 carvedilol 0 Yes 25mg Q.5D Take 25 mg [place] (COREG) 25 7-07 by mouth 2 Met hodi MG tablet 15:36: (two) st 05 times a day with meals. clopidogrel 0 Yes 75mg QD Take 75 mg [place] (PLAVIX) 75 7-07 by mouth Meth evi mg tablet 15:36: daily. st 05 docusate 2015-0 Yes 100mg Q.5D Take 100 [place] sodium 7-07 mg by Methodi (COLACE) 15:36: mouth 2 st 100 MG 05 (two) capsule times a day. hydrALAZINE 0 Yes 100mg [id number] Take 100 [place] (APRESOLINE 7-07 [id number] mg by Ravi chavis ) 100 MG [...] 15:36: mouth st tablet 05 daily. losartan 2015-0 Yes 60mg QD Take 60 mg [place] (COZAAR) 7-07 by mouth Methodi 100 MG 15:36: daily. st tablet 05 megestrol 0 Yes 40mg QD Take 40 mg [place] (MEGACE) 40 7-07 by mouth Meth evi MG tablet 15:36: daily. st 05 FOLIC Yes 1{tbl} QD [...] Source Systolic blood 2019-02-19 11:41:00 145 mm[Hg] [facility] Diastolic blood 2019-02-19 11:41:00 67 mm[Hg] [facility] Heart rate 2019-02-19 11:41:00 79 /min [facility] Body temperature 2019-02-19 11:41:00 36.94 [facility] Respiratory rate 2019-02-19 11:41:00 20 /min [facility] Oxygen saturation in 2019-02-19 11:41:00 92 /min [facility] Arterial blood by Medical Ce nter Pulse oximetry Body weight Measured 2019-02-19 10:57:00 66.8 kg [facility] BMI 2019-02-19 10:57:00 24.51 kg/m2 [facility] Body height 2019-02-16 16:00:00 165.1 cm [facility] Systolic (mm Hg) 2017-11-27 00:00:00 Migel rial [facility] Diastolic (mm Hg) 2017-11-27 00:00:00 Mem [facility] [place] Respitory Rate 2017-11-27 00:00:00 Memori al [facility] Respitory Rate 2017-11-26 23:00:00 Memori [facility] Systolic (mm Hg) 2017-11-26 23:00:00 Migel rial [place] Diastolic (mm Hg) 2017-11-26 23:00:00 [facility] [place] Systolic (mm Hg) 2017-11-26 22:00:00 Migel [facility] [place] Diastolic (mm Hg) 2017-11-26 22:00:00 [facility] [place] Respitory Rate 2017-11-26 22:00:00 [facility] [place] Temperature Oral (F) 2017-11-26 17:00:00 98.0 F [facility] Temperature Oral (F) 2017-11-26 12:30:00 97.6 F [facility] Temperature Oral (F) 2017-11-26 10:00:00 98.5 F [facility] Heart Rate 2017-11-26 02:22:00 [facility] Heart Rate 2017-11-25 23:45:00 [facility] BMI Calculated 2017-11-25 21:59:00 [facility] [place] Weight 2017-11-25 21:59:00 [facility] Height 2017-11-25 21:59:00 165.1 cm [facility] Heart Rate 2017-11-25 19:30:00 [facility] Heart Rate 2017-04-29 22:48:00 [facility] Systolic (mm Hg) 2017-04-29 22:48:00 Migel [facility] [place] Diastolic (mm Hg) 2017-04-29 22:48:00 Mem o[facility] Systolic (mm Hg) 2017-04-29 21:18:00 Migel rial [place] Diastolic (mm Hg) 2017-04-29 21:18:00 Mem orial [facility] Respitory Rate 2017-04-29 21:18:00 Memori [facility] Heart Rate 2017-04-29 21:18:00 [facility] Temperature Oral (F) 2017-04-29 21:18:00 98.4 F [facility] Temperature Oral (F) 2017-04-29 17:26:00 97.8 F [facility] Heart Rate 2017-04-29 17:26:00 [facility] Respitory Rate 2017-04-29 17:26:00 [facility] [place] Systolic (mm Hg) 2017-04-29 17:26:00 Migel rial [place] Diastolic (mm Hg) 2017-04-29 17:26:00 [facility] [place] Respitory Rate 2017-04-29 14:33:00 Memori [facility] Temperature Oral (F) 2017-04-29 13:39:00 98.4 F [facility] BMI Calculated 2017-04-22 06:08:00 [facility] [place] Weight 2017-04-22 06:08:00 [facility] Height 2017-04-22 06:08:00 165.1 cm [facility] BMI Calculated 2017-04-22 05:02:00 Madelyn al [facility] Weight 2017-04-22 05:02:00 [facility] Height 2017-04-22 05:02:00 165.1 cm [facility] Height 2017-04-22 05:01:00 165.1 cm [facility] Procedures Procedure Date / Time Performing Clinician Source Performed SARS-COV2/RT-PCR ([facility] & 2019-09-12 18:16:00 [facility] LABS) [facility] RHYTHM STRIP - SCAN 2019-02-22 08:50:24 Provider, Default [facility] POCT-GLUCOSE METER 2019-02-19 11:58:00 Fabiola Pratt [facility] HEMODIALYSIS INPATIENT 2019-02-19 07:05:53 Carmine Laurent [facility] CBC W/PLT COUNT & AUTO 2019-02-19 04:24:[address] [facility] DIFFERENTIAL [facility] POCT-GLUCOSE METER 2019-02-18 20:49:00 Lisa Choi [facility] POCT-GLUCOSE METER 2019-02-18 17:11:00 Lisa Choi [facility] POCT-GLUCOSE METER 2019-02-18 09:01:00 Debby Velez [facility] COMPREHENSIVE METABOLIC 2019-02-18 04:57:00 Boo Alexander [facility] PANEL [facility] CBC W/PLT COUNT & AUTO 2019-02-18 04:57:[address] [facility] - DIFFERENTIAL [facility] POCT-GLUCOSE METER 2019-02-17 22:41:00 Debby Velez [facility] ECHOCARDIOGRAM REPORT - 2019-02-17 21:21:07 Provider, Default [facility] POCT-GLUCOSE METER 2019-02-17 17:58:00 Debby Velez [facility] MR BRAIN WITHOUT IV 2019-02-17 15:41:[address] [facility] CONTRAST [facility] WOUND CULTURE + GRAM STAIN 2019-02-17 13:10:00 Yaneth Fernandes [facility] POCT-GLUCOSE METER 2019-02-17 11:51:00 Debby Velez [facility] URINE CULTURE 2019-02-17 11:30:00 Boo Alexander [facility] URINALYSIS W/ REFLEX URINE 2019-02-17 11:30:[address] [facility] CULTURE [facility] DRUG SCREEN, URINE, 2019-02-17 11:30:[address] [facility] VITAMIN B12 AND FOLATE 2019-02-17 07:34:00 Debby Velez [facility] HEMOGLOBIN A1C 2019-02-17 07:34:00 Debby Velez [facility] LIPID PANEL 2019-02-17 04:52:00 Boo Alexander [facility] COMPREHENSIVE METABOLIC 2019-02-17 04:52:00 Boo Alexander [facility] - PANEL [facility] CBC W/PLT COUNT & AUTO 2019-02-17 04:52:00 Miguel Flores [facility] - DIFFERENTIAL [facility] POCT-GLUCOSE METER 2019-02-17 00:10:00 Debby Velez [facility] HEMODIALYSIS INPATIENT 2019-02-16 21:41:55 Xuan Silvestre [facility] 2D ECHO W/ DOPPLER 2019-02-16 19:06:04 MADISON Flores [facility] - (CW/PW/COLOR) [facility] COMPREHENSIVE METABOLIC 2019-02-16 18:41:00 Boo Alexander [facility] PROTHROMBIN TIME/INR 2019-02-16 18:41[facility]00 [facility] 2019-02-16 18:41[facility]00 [facility] 2019-02-16 18:41:00 [facility] TSH 2019-02-16 18:41:00 [facility] RPR 2019-02-16 18:41:00 [facility] VIT[facility]IN B12 2019-02-16 18:41:00 [facility] HEPATITIS B SURFACE 2019-02-16 18:41:00 Shan Long [facility] HEPATITIS C ANTIBODY 2019-02-16 18:41:00 Debby Velez [facility] CBC W/PLT COUNT & AUTO 2019-02-16 18:41:00 Miguel Flores [facility] XR CHEST 1 VIEW 2019-02-16 17:21:00 Boo Alexander [facility] PORTABLE/BEDSIDE [facility] Bilateral extraction of [facility] cataracts Caesarean section [facility] Carotid angiogram [facility] nn Cholecystectomy [facility] Provision of stents or [facility] bite blocks<sup>1</sup> Plan of Care Planned Activity Planned Date Details Comments Source Future Scheduled 2019-10-20 INFLUENZA VACCINE Kyleeto alyssa [facility] 00:00:00 [code = INFLUENZA VACCINE] Future Scheduled 1995-09-27 65+ PNEUMOCOCCAL [facility] 00:00:00 VACCINE (1 of 2 - PCV13) [code = 65+ PNEUMOCOCCAL VACCINE (1 of 2 - PCV13)] Future Scheduled 1980 SHINGLES VACCINES (#1) Zayda gutierrez [facility] 00:00:00 [code = SHINGLES VACCINES (#1)] Future Scheduled 1940 DIABETIC FOOT EXAM [place] [facility] 00:00:00 [code = DIABETIC FOOT EXAM] Future Scheduled 1940 URINE MICROALBUMIN [place] [facility] 00:00:00 [code = URINE MICROALBUMIN] Future Scheduled 1930 DIABETIC RETINAL EYE Roland ston [facility] Test 00:00:00 EXAM [code = DIABETIC RETINAL EYE EXAM] Encounters Start End Encounter Admission Attending Care Care Encounter Source Date/Time Date/Time Type Type Clinicians Facility Department ID 2019-10-07 2019-10-07 [facility] [id number] 00:00:00 00:00:00 Omayi [facility] [id number] [place] 4.2.7.2.686 Professio [phone] [place] [address] [address] 2019-10-06 2019-10-06 Laboratory Lab, [facility] [id number] 12:25:34 12:45:34 Only Fam [facility] [id number] [place] 4.2.7.2.686 Professio [phone] [place] [address] [address] One 2019-10-06 2019-10-06 Letter Doctor FLAVIO [id number] 00:00:00 00:00:00 (Out) Unassigned, MAXINE [id number] [place] [facility] 4.2.7.2.686 [id number] [id number] 2018-11-28 2018-11-28 Office [facility] [id number] 11:03:56 11:42:17 Visit Silvana Rao [id number] [place] 4.2.7.2.686 Professio [phone] [facility] 205 Building 2017-11-25 2017-11-26 Outpatient CIERA Jones DWIGHT [id number] 14:33:00 20:17:00 Bruno 50 2017-04-21 2017-04-29 Outpatient CIERA Sandra DWIGHT [id number] 22:59:00 19:15:00 Gregg 32 Results Test Description Test Time Test Comments Results Result Comments Source SARS-CoV2/RT-PCR ([facility] & Ref Labs) 2019-09-13 00:17:00 Test Item Value Reference Range Interpretation Comme nts SARS-COV2/RT-PCR (test code = Not Detected Not Detected, Negative 51243-0) SARS-COV-2 PERFORMING LAB [facility] (test code = 97983-9) [facility] (test code = MAYNOR) Negative results do not preclude SARS-CoV-2 infection and should not be used as [...] of the Act. Fact Sheet for Healthcare Providers:https://www.[employer]/Documents/Xpert%20Xpress %20SARS%20CoV-2/Fact%20Sheets /3023802%59FJTA-UDJ-9%20HEAL THCARE%20PROVIDERS%20FACT%20S HEET.pdf Fact Sheet for Healthcare Patients:https://www.[employer]. [employer]/Documents/Xpert%20Xpress% 20SARS%20CoV-2/Fact%20Sheets/ 3023801%46GBNJ-DQW-8%20PATIE NT%20FACT%20SHEET.pdf Performing Laboratory:[facility] [place] [address] [facility] REF LABS)2019-09-13 00:17:00 Test Item Value Reference Range Interpretation Comments SARS-COV2/RT-PCR (test Not Detected Not Detected, Negative code = 0247039) SARS-COV-2 PERFORMING LAB [facility] (test code = 6700325) Negative results do not preclude SARS-CoV-2 infection and should not be used as the sole basis for patient management decisions. Negative results must be combined with clinical observations, patient history, and epidemiological information. A false negative result may occur if a specimen is improperly collected, transported or handled.The limit of detection for this assay is 250 copies/mL.This SARS CoV-2 test is a rapid, real-time RT-PCR test intended for the qualitative detection of nucleic acid from SARS-CoV-2 in a nasopharyngeal swab specimen collected from individuals suspected of COVID-19 by their healthcare provider.This test has not been Food and Drug [...] is revoked under Section 564(g) of the Act.Fact Sheet for Healthcare Pro viders:https://www.[employer]/Documents/Xpert%20Xpress%20SARS%20CoV-2/Fact%20Sh eets/3023802%54VWIB-DLE-3%20HEALTHCARE%20PROVIDERS%20FACT%20SHEET.pdfFact Sheet for Healthcare Patients:https://www.[employer]/Documents/Xpert%20Xpress%20SARS%20CoV-2/Fact%20Sheets/3023801%20SARS-COV -2%20PATIENT%20FACT%20SHEET.pdfPerforming Laboratory:[facility], [place] [address]Dvwmc culture + gram [id number] 17:15:00 Test Item Value Reference Range Interpretation Comments Result (test code = 6463-4) No growth Gram Stain Result (test No organisms seen code = 1123) [facility] GRAM [id number] 17:15:00 Test Item Value Reference Range Interpretation Comments CULTURE (BEAKER) (test code No growth = 1095) GRAM STAIN RESULT (BEAKER) <1+ WBCs (test code = 1123) GRAM STAIN RESULT (BEAKER) No organisms seen (test code = 15209) POC-Glucose [id number] 12:10:00 Test Item Value Reference Range Interpretation Comments POC-Glucose Meter (test 77 mg/dL 70-110 : TE STED AT [facility] code = 1538) [address] [facility], [address]: Auto Collision Repair Instructor/Techni dax ID = [id number] for Joseph Berrios redcollins Lab Interpretation (test Normal code = 28836-9) [facility] [id number] 12:10:00 Test Item Value Reference Range Interpretation Comments POC-GLUCOSE METER 77 mg/dL 70-110 : TESTED A T [facility] 6720 (BEAKER) (test code [facility], = 1538) [address]: Auto Collision Repair Instructor/Techni dax ID = [id number] for Erickson Jacobo CBC with platelet count + automated [id number] 05:11:00 Test Item Value Reference Range Interpretation [...] 450 K/CU MM MPV (test code = 80555-2) 9.6 fL 9.4-12.3 nRBC (test code = [...] 2801) Lab Interpretation (test code = Abnormal 37286-1) [facility] W/PLT COUNT & AUTO [id number] 05:11:00 Test Item Value Reference Range Interpretation [...] PERCENT (BEAKER) (test code = 2801) POCT-GLUCOSE [id number] 21:01:00 Test Item Value Reference Range Interpretation Comments POC-GLUCOSE METER 105 mg/dL 70-110 : TESTED A T [facility] 6720 (BEAKER) (test code = [facility], 153) [address]: Auto Collision Repair Instructor/Techni dax ID = [id number] for VICKIE KORY BILL POCT-GLUCOSE [id number] 21:00:00 Test Item Value Reference Range Interpretation Comments POC-GLUCOSE METER 138 mg/dL 70-110 H : TESTED A T [facility] 6720 (BEAKER) (test code = [facility] [employer] [facility], 1538) [address]: Auto Collision Repair Instructor/Techni dax ID = [id number] for RYAN SANCHEZ, JENNIFER Urine [id number] 12:50:00 Test Item Value Reference Range Interpretation Comments Result (test code = 40-49,000 col/mL skin 6463-4) rena [facility] [id number] 09:13:00 Test Item Value Reference Range Interpretation Comments POC-GLUCOSE METER 77 mg/dL 70-110 : TESTED A T [facility] 6720 (BEAKER) (test code = [facility], 153) [address]: Auto Collision Repair Instructor/Techni dax ID = [id number] for FELTON KISER Comprehensive metabolic [id number] 06:33:00 Test Item Value Reference Range Interpretation Comments Protein, Total (test 6.2 6.0- 8.3 gm/dL code = 2885-2) Albumin (test code = 3.1 g/dL 3.5-5 L 54854-3) Alkaline Phosphatase 89 U/L 40-150 (test code = 6768-6) Total Bilirubin (test 0.5 mg/dL 0.2-1.2 code = 1975-2) Sodium (test code = 137 meq/L 839-994 2632-2) Potassium (test code = 4.4 meq/L 3.5-5.1 2823-3) Chloride (test code = 101 meq/L 98-107 2075-0) CO2 (test code = 28 meq/L 22-29 2028-9) BUN (test code = 19 mg/dL 7-21 3094-0) Creatinine (test code = 4.63 mg/dL 0.57-1.25 H 2160-0) Glucose (test code = 75 mg/dL 70-105 2345-7) Calcium (test code = 8.6 mg/dL 8.4-10.2 79277-2) AST (test code = 34 U/L 5-34 1920-8) ALT (test code = 21 U/L 6-55 1742-6) EGFR (test code = 11 mL/min/1.73 [place] [address]-7) NOT ACCURATE CREATININE CLEARANCE IN PREDICTING GLOMERULAR FILTRATION RATE . ESTIMATED GFR I S NOT APPLICABLE FOR DIALYSIS PATIEN TS. Lab Interpretation Abnormal (test code = 13538-9) [facility]COMPRE[facility]ENSIVE METABOLIC [id number] 06:33:00 Test Item Value Reference Range Interpretation [...] PATIEN TS. CBC W/PLT COUNT & AUTO [id number] 05:46:00 Test Item Value Reference Range Interpretation [...] 0-1 PERCENT (BEAKER) (test code = 2801) [id number] 04:27:00 Test Item Value Reference Range Interpretation Comments RPR (test code = 59026-4) Nonreactive Nonreactive Lab Interpretation (test code = Normal 77407-2) [facility] 04:27[facility]00 Test Item Value Reference Range Interpretation Comments RPR SCREEN (BEAKER) (test code = Nonreactive Nonreactive 420) POCT-GLUCOSE [id number] 22:54:00 Test Item Value Reference Range Interpretation Comments POC-GLUCOSE METER 94 mg/dL 70-110 : TESTED A T [facility] 6720 (BEAKER) (test code = [facility] [place], 1538) [address]: Auto Collision Repair Instructor/Techni dax ID = [id number] for JACKY CAMACHO POCT-GLUCOSE [id number] 18:10:00 Test Item Value Reference Range Interpretation Comments POC-GLUCOSE METER 108 mg/dL 70-110 : TESTED A T [facility] 6720 (SOLOMON) (test code = [facility] [place], 1538) [address]: Auto Collision Repair Instructor/Techni dax ID = [id number] for JULISSA KRISHNA MR, BRAIN, WITHOUT [id number] 16:05:00FINAL REPORT MR, BRAIN, WITHOUT CONTRAST INDICATION: [...] Date/Time: 02/17/2019 16:05:48 MR brain without IV [id number] 16:05:00Interface, External Ris In - 02/17/2019 4:08 [...] Signed: Brianna Abraham Verified Date/Time: 02/17/2019 16:05:48 [facility] 2D Echo W/Doppler(CW/PW/Color)2019-02-17 15:09:17Ejection FractionSLEH ECHO HEARTLAB MKCKESSON CPACSInterface, External Ris In - 02/17/2019 3:09 PM C STTransthoracic Echocardiography Report (TTE) Demographics Patient Name SANTOS, Date of Study 02/16/2019 REAL Gender Female Visit Number [id number] Race Black Room Number 7407 Number Date of 1930 Referring Physician Debby Velez Age 88 year(s) Injury/Safety Hazard Assessment Trevor Zuñiga Generation Manager Carlota Lambert Interpreting Brianna Dotson MD Procedure [...] Mild aortic stenosis. CT 1.91 cm2. 5. Qobd-vz-hztkrrps tricuspid regurgitation. 6. Estimated peak systolic PA [...] calcification. Mild MV leaflet thickening. Tricuspid Valve Pbhn-bo-pcgxotxg tricuspid regurgitation. Estimated peak systolic PA pressure [...] Velocity: 3.52 m/s TR Gradient: 49.63 mmHg [facility] [id number] 12:03:00 Test Item Value Reference Range Interpretation Comments POC-GLUCOSE METER 145 mg/dL 70-110 H : Notified RN/MD: (SOLOMON) (test code = TESTED AT [facility] 67[address] 1538) [facility], [address]: Auto Collision Repair Instructor/Techni dax ID = [id number] for JULISSA KRISHNA Urinalysis w/Microscopic + Reflex to [id number] 11:54:00 Test Item Value Reference Range Interpretation Comments Color, UA (test code = 5778-6) Yellow Clarity, UA (test code = 5767-9) Hazy Specific [place], UA (test code = 1.011 1.001-1.035 5811-5) pH, UA (test code = 5803-2) 8.5 5.0-8.0 H Protein, UA (test code = 54986-0) 300 mg/dL Negative A Glucose, UA (test code = 365) Negative Negative Ketones, UA (test code = 2514-8) Negative Negative Bilirubin, UA (test code = 90260-2) Negative Negative Blood, UA (test code = 41575-1) Trace Negative A Nitrite, UA (test code = 5802-4) Positive Negative A Leukocytes, UA (test code = 5799-2) Large Negative A Urobilinogen, UA (test code = 0.2 mg/dL 0.2-1 53005-9) RBC, UA (test code = 25635-4) 9 /HPF WBC, UA (test code = 5821-4) 24 /HPF Bacteria, UA (test code = 45147-6) Moderate Mucus (test code = 8247-9) Many Squam Epithel, UA (test code = 50 /HPF 53218-0) Specimen Source (test code = 2795) Lab Interpretation (test code = Abnormal 98102-3) [facility]/ REFLEX URINE [id number] 11:54:00 Test Item Value Reference Range Interpretation [...] (test code = 2795) Vitamin B12 and [id number] 09:50:00 Test Item Value Reference Range Interpretation Comments Vitamin B12 (test code = 2132-9) >2000 213-816 H Folate (test code = 2284-8) 16.5 ng/mL >=7.0 Lab Interpretation (test code = Abnormal 14126-5) [facility] HospitalVITAMIN B12 AND [id number] 09:50:00 Test Item Value Reference Range Interpretation Comments VITAMIN B12 (BEAKER) (test code = > pg/mL 213-816 H 774) FOLATE (BEAKER) (test code = 362) 16.5 ng/mL >=7.0 Hemoglobin [id number] 09:03:00 Test Item Value Reference Range Interpretation Comments Hemoglobin A1C (test code = 4548-4) 4.3 % 4.3-6.1 Lab Interpretation (test code = Normal 90510-6) [facility] HospitalHEMOGLOBIN [id number] 09:03:00 Test Item Value Reference Range Interpretation Comments HEMOGLOBIN A1C (BEAKER) (test code = 4.3 % 4.3-6.1 368) HEMOGLOBIN [id number] 06:22:00 Test Item Value Reference Range Interpretation Comments HEMOGLOBIN A1C (BEAKER) (test code = 4.3 % 4.3-6.1 368) COMPREHENSIVE METABOLIC [id number] 05:42:00 Test Item Value Reference Range Interpretation [...] 347) EGFR (BEAKER) (test 17 mL/min/1.73 ESTIMA LELA GFR IS code = 1092) sq m NOT ACCURATE CREATININE CLEARANCE IN PREDICTING GLOMERULAR FILTRATION RATE . ESTIMATED GFR I S NOT APPLICABLE FOR DIALYSIS PATIEN TS. [facility] Centering lipid [id number] 05:36:00 Test Item Value Reference Range Interpretation Comments Triglycerides (test 61 mg/dL code = 2571-8) Cholesterol (test code 104 mg/dL = 2093-3) HDL (test code = 56 mg/dL 5-9) LDL Calculated (test 36 mg/dL code = 35416-7) MAYNOR (test code = MAYNOR) Triglyceride Reference Range: Low Risk <150 Borderline 150-199 High Risk 200-499 Very High Risk >=500 Cholesterol Reference Range: Low Risk <200 Borderline 200-239 High Risk >240 HDL Cholesterol Reference Range: Low Risk >=60 High Risk <40 LDL Cholesterol Reference Range: Optimal <100 Near Optimal 100-129 Borderline 130-159 High 160-189 Very High >=190 Fasting [facility] HospitalLIPID [id number] 05:36:00 Test Item Value Reference Range Interpretation [...] High >=190 FastingCBC W/PLT COUNT & AUTO [id number] 05:04:00 Test Item Value Reference Range Interpretation [...] PERCENT (BEAKER) (test code = 2801) POCT-GLUCOSE [id number] 00:21:00 Test Item Value Reference Range Interpretation Comments POC-GLUCOSE METER 92 mg/dL 70-110 : TESTED A T [facility] 6720 (BEAKER) (test code = [facility] [place], 1538) [address]: Auto Collision Repair Instructor/Techni dax ID = [id number] for Kirstie Guajardo Hepatitis B surface [id number] 20:43:00 Test Item Value Reference Range Interpretation Comments HBsAg Screen (test code = 5195-3) Nonreactive Nonreactive Lab Interpretation (test code = Normal 85816-6) [facility] HospitalHepatitis C [id number] 20:43:00 Test Item Value Reference Range Interpretation Comments Hepatitis C Ab (test code = Nonreactive Nonreactive 06226-7) Lab Interpretation (test code = Normal 17690-3) [facility] HospitalHEPAT[facility]IS B SURFACE [id number] 20:43:00 Test Item Value Reference Range Interpretation Comments HEPATITIS B SURFACE ANTIGEN (2) Nonreactive Nonreactive (BEAKER) (test code = 2585) HEPATITIS C [id number] 20:43:00 Test Item Value Reference Range Interpretation Comments HEPATITIS C ANTIBODY (BEAKER) Nonreactive Nonreactive (test code = 367) Vitamin [id number] 19:57:00 Test Item Value Reference Range Interpretation Comments Vitamin B12 (test code = 2132-9) >2000 213-816 H Lab Interpretation (test code = Abnormal 29956-6) [facility] HospitalVITAMIN [id number] 19:57:00 Test Item Value Reference Range Interpretation Comments VITAMIN B12 (BEAKER) (test code = > pg/mL 213-816 H 774) [id number] 19:45:00 Test Item Value Reference Range Interpretation Comments TSH (test code = 22810-0) 1.78 0.35- 4.94 uIU/mL Lab Interpretation (test code = Normal 29999-9) [facility] HospitalTSH2019-11-29 19:45:00 Test Item Value Reference Range Interpretation Comments THYROID STIMULATING HORMONE 1.78 uIU/mL 0.35-4.94 (BEAKER) (test code = 772) Troponin [id number] 19:27:00 Test Item Value Reference Range Interpretation Comments Troponin I (test code = 0.04 ng/mL 0-0.03 H 12244-6) MAYNOR (test code = MAYNOR) Troponin I [...] tachyarrhythmia. Lab Interpretation (test Abnormal code = 46779-9) [facility] HospitalTROPONIN [id number] 19:27:00 Test Item Value Reference Range Interpretation [...] acute neurological disease, and persistent tachyarrhythmia.COMPREHENSIVE METABOLIC [id number] 19:21:00 Test Item Value Reference Range Interpretation [...] NOT APPLICABLE FOR DIALYSIS PATIEN TS. Prothrombin time/[id number] 19:10:00 Test Item Value Reference Range Interpretation [...] valves. Lab Interpretation Abnormal (test code = 30721-6) [facility] HospitalPROTHROMBIN TIME/[id number] 19:10:00 Test Item Value Reference Range Interpretation [...] mechanical heart valves.CBC W/PLT COUNT & AUTO [id number] 19:02:00 Test Item Value Reference Range Interpretation [...] = 2801) RAD, CHEST, 1 VIEW, NON [id number] 18:34:00Reason for exam:->Shortness of breathShould this be [...] MDReport Verified Date/Time: 02/16/2019 18:34:17 Reading Location: [address] Consult Reading Room XR chest 1 view portable / fhukour6411-02-71 18:34:00Interface, External Ris In - 02/16/2019 6:36 [...] MDReport Verified Date/Time: 02/16/2019 18:34:17 Reading Location: [facility] C013W Consult Reading Room . [facility] ZJDYZ5500-70-21 15:22:0014[facility]annCHEM RIJLF4173-42-27 15:22:72767Ypwemwvk HermannCHEM CJDFT8512-05-17 15:22:0022[facility] HermannCHEM ZVPIC7233-56-38 15:22:003.20[facility]annCHEM BXBTD2119-37-76 15:22:69245Aeiysazg HermannCHEM DKQFN4823-12-43 15:22:0027 [facility]annCHE[facility] QGKKI4705-03-19 15:22:0098[facility] HermannCHEM PANEL 2017-11-26 15:22:003.9[facility] HermannCHEM QUTGI5330-96-22 15:22:0012.9[facility] HermannCHEM UDQQB2335-19-68 15:22:008.1[facility] HnpyutlKZARVKRKLQ7452-18-94 15:22:000.7[facility] KthegkxWZLSFROQQU1102-57-02 15:22:000.1[facility] WPWCZGDTKK3808-96-76 15:22:000.5[facility] WztjodlGJUQBVPDCY8284-89-34 15:22:000.9 [facility] SsymupqWPWTKTUQVK3104-39-16 15:22:005.3[facility] HermannHEMATOLOGY 2017-11-26 15:22:007.3[facility] XxfwthmZQZQFFCWWU3420-62-58 15:22:000.6[facility] WrpwycpWBBWRDFISK3533-53-96 15:22:008.4[facility] ZlabmsgVEAOPRMKPP3429-70-65 15:22:0084.8[facility] HpswrwrOEZOKEWUWA8727-72-06 15:22:000.1[facility] QGCYJDWFUK7350-19-88 15:22:0034.5[facility] BhdcayuVJWJFPSEGM4842-99-97 15:22:00 15.1[facility] FesiopoVBSPQNHITZ6818-71-83 15:22:94113Stqhsqpu HermannHEMATOLOGY 2017-11-26 15:22:008.2[facility] SoquxqdVTPDLZXRPQ6331-67-48 15:22:002.73[facility] GrcydbiWVNZQFELZA9204-07-73 15:22:008.9[facility] CetcuekMEUVLVDYJR5802-56-17 15:22:0025.9[facility] FgtqxmgJRBWDKMBBN6190-84-91 15:22:0094.8[facility] CKQLDMNJZL3220-46-84 15:22:00 Test Item Value Reference Range Interpretation Comments MCH (test code = MCH) 32.7 pg 27.0-31.0 [facility] NgyhuqhSXWDXIOWJK8437-64-15 15:22:008.6[facility] HermannBACTERIAL - PZMVJRWJ5600-13-19 05:49:00Negative (11/26/17 12:49 AM)[facility] HermannANEMIA ZZQYR0718-55-27 00:10:0031.9[facility] HermannANEMIA XANMC3165-43-88 00:10:39652 [facility]annANEMIA UEBXK0224-24-82 00:10:935655Kpovwtmg HermannCHEM PANEL 2017-11-26 00:10:97911Jwrszcls HermannCHEM WOWAK1804-10-26 00:10:000.2[facility] HermannCHEM BQXPR0881-86-19 00:10:000.4[facility] HermannCHEM UVYXD1842-22-82 00:10:000.2[facility] QyyopmqIKHWFVMAPI4408-31-22 00:10:001.6[facility] ZWXLOUHOXC5834-40-10 00:10:0025.8[facility] HermannORGANIC JULS1248-12-89 00:10:00 572[facility] HermannBLOOD BANK AOIXHTA7000-60-33 23:45:23Product available 1(11/25/17 6:45 PM)[facility]OD BANK PBMNODD9987-71-51 22:20:00Negative (11/25/17 5:20 PM)[facility]annBL[facility]OD BANK XAKPSBR1148-08-30 22:20:00Product available 2(11/25/17 5:20 PM)[facility] CyhcizzONZCOOFGYKCJ5249-86-14 22:20:0013.7 [facility] EptawfrTOUQRLSDZOMV3970-16-83 22:20:00 Test Item Value Reference Range Interpretation Comments B/C Ratio (test code = B/C Ratio) 8 1 6-25 [facility] VeetgqtWZYTLSUMHSPH6140-57-55 22:20:00 Test Item Value Reference Range Interpretation Comments A/G Ratio (test code = A/G Ratio) 0.8 1 0.7-1.6 [facility] BurhfduTZFQGRMSYSTK1755-40-91 22:20:003.9[facility] HermannELECTROLYTES 2017-11-25 22:20:24617Usmgwrka OhdkspbVKVTKZWOCKAI8686-25-35 22:20:14104Bunbcqzq MdqgbqdSQUNRSIAGHKO1993-80-66 22:20:003.7[facility] PokwpiwEEJEQJZOFHHM1275-60-52 22:20:0031[facility] VwrlwnjXQQEKVDXGJKY7557-91-02 22:20:0025[facility] MSQDQGWJQVQB7469-93-38 22:20:003.1[facility] EvnigqhKHZXKRINTQLQ3117-82-02 22:20:008.0[facility] VytaqeyFIFMTSBSLNGQ6738-69-71 22:20:0027[facility] SUYZYDKBIDIN1267-54-22 22:20:0041[facility] VclytniSBMZNNBZDBRO5904-15-79 22:20:00 114[facility] SpgpsngQFSBDKZYWPYQ5360-03-37 22:20:007.0[facility] SHWQAMIJTZSN3759-23-95 22:20:004.96[facility] RagfyynHQSNNJUWFJAP3601-60-15 22:20:000.4[facility] CyksvpeGJUEXCVXXGCZ6773-60-34 22:20:0073[facility] JRVIUHYJGQYG0338-09-38 22:20:008[facility] UoclhkmEAHYKJTOMR7342-19-62 22:20:006.3 [facility] GacphstDPSSLELZEN5497-26-07 22:20:001.95[facility] HermannHEMATOLOGY 2017-11-25 22:20:006.3[facility] AtouqihZJZEFBJVWY0944-97-47 22:20:0018.3[facility] MtgzwgvJVZFWIFBYP0255-19-69 22:20:0034.5[facility] QlcohelVUSITOTPTI7069-68-14 22:20:00 Test Item Value Reference Range Interpretation Comments MCH (test code = MCH) 32.4 pg 27.0-31.0 [facility] LtfseddCIWFKJPSVN7691-36-48 22:20:0093.7[facility] HermannHEMATOLOGY 2017-11-25 22:20:008.1[facility] BtmilwmJLUFLRDNCM1584-23-15 22:20:80006Sojwzcmr SxsdizsYELFVSVFCD8548-47-56 22:20:0016.3[facility] TbexjztCLLKXUKPBM8796-20-62 22:20:005.1[facility] ZrytwauQWLSFGFTWJ9429-23-62 22:20:000.3[facility] KPEFPBZXYD0672-45-55 22:20:000.8[facility] HoihaqyWLYBHVAAQT5008-14-16 22:20:001+ (11/25/17 5:20 PM)[facility] GtmlehyTNINGSJRSO1902-90-31 22:20:001+ *ABN*(11/25/17 5:20 PM)[facility] SsbfxhcGINFNARWNI3505-87-12 22:20:001+ *ABN*(11/25/17 5:20 PM) [facility] VorolqqNQLVBKQWKW9903-27-33 22:20:00See Note (11/25/17 5:20 PM)[facility] AuieqwyWZETFQRRZE7239-18-54 22:20:0080.8[facility] ZsmiotvQZMHZWTQON4133-91-85 22:20:00Normal (11/25/17 5:20 PM)[facility] XermywnZRHQWSUKHI1169-97-10 22:20:005.5 [facility] WqneavwGRUZTQLQKK0708-46-53 22:20:0013.0[facility] HermannHEMATOLOGY 2017-11-25 22:20:000.5[facility] MzgabkoMBZYHYPKJE5575-79-26 22:20:000.2[facility] HdwwkkqCALTTULOHT0672-68-68 22:20:00Occasional *ABN*(11/25/17 5:20 PM)[facility] IekpizgBYEJCOINTN2258-20-67 22:20:00Negative *NA*(11/25/17 5:20 PM)[facility] HphldjnKSFQMWWWGFKR2375-82-13 10:29:0010.8[facility] YqejzjkYJTAQOSTMGOR8267-17-44 10:29:0015[facility] QcbyrdqBCWUVPZNMHYO4469-87-96 10:29:008.5[facility] HCPQYUZVMULF9831-35-27 10:29:003.11[facility] LhshisjSSWIMMAHEFNR2211-91-65 10:29:0082[facility] AxukxkvHOFQGXLXKHJG6354-62-84 10:29:53407Qtdaxzta [facility] MGRRMAQYPHSF9094-46-77 10:29:0099[facility] DlrvrneSYJIPZZHFMGE1379-07-61 10:29:00 30[facility] VqokgtvIQNVKWUPVOGK7878-54-31 10:29:004.8[facility] HermannELECTROLYTES 2017-04-29 10:29:0019[facility] RnursbkBDGLHVLYDK7932-75-69 10:29:000.7[facility] YqgustuNCCBKGDZGM3220-70-21 10:29:001.3[facility] HfejqvgLIOKJTAHRR3110-08-88 10:29:0074.6[facility] JfwchxcILUAELPJGT5369-20-98 10:29:000.4[facility] DDGVRAQLHA5731-33-91 10:29:003.9[facility] OutufjrSADPINQXST4283-82-18 10:29:000.8 [facility] KkeqdugSAMWLULRDS0659-38-20 10:29:000.1[facility] HermannHEMATOLOGY 2017-04-29 10:29:0015.1[facility] WsgmjuqSQRCVFMUSZ5848-09-85 10:29:008.3[facility] PxtgwxnIUACCFNHVJ9851-68-06 10:29:0014.7[facility] TrnnkrkABCPFDYRNH6383-78-39 10:29:12882Pyivcrzn JrikoxhBQXEWEKBVP7946-07-16 10:29:008.5[facility] PYDMRQXADF7497-84-52 10:29:0096.8[facility] EdglfaiTKQAPKOFWZ7475-64-79 10:29:00 28.5[facility] AxdbjmbPSKDZQRJBY9582-21-21 10:29:0035.6[facility] HermannHEMATOLOGY 2017-04-29 10:29:00 Test Item Value Reference Range Interpretation Comments MCH (test code = MCH) 34.4 pg 27.0-31.0 [facility] NenboxiCDFAGITRHW1152-81-23 10:29:005.2[facility] HermannHEMATOLOGY 2017-04-29 10:29:002.94[facility] MgjoqspEEFTQQKFXP6976-57-56 10:29:0010.1[facility] TmjpsimPOGJYIHLPEQE8543-33-69 19:49:005.3[facility] HermannBLOOD BANK RESULTS 2017-04-28 13:30:13Negative (04/28/17 7:30 AM)[facility] HermannBLOOD BANK RESULTS 2017-04-28 13:00:00Product available 1(04/28/17 7:00 AM)[facility] HermannCHEM PANEL 2017-04-28 09:58:009[facility] HermannCHEM SXSUZ8354-97-98 09:58:008.2[facility] HermannCHEM RASGN5427-41-92 09:58:0029[facility] HermannCHEM BZVSM2094-01-10 09:58:18183Shhvxxmx HermannCHEM TSZUY2548-35-01 09:58:0097[facility] HermannCHEM FINNZ6520-42-21 09:58:005.7[facility] HermannCHEM XBDAA4812-40-58 09:58:0037 [facility] HermannCHEM JCFCY3115-46-84 09:58:0087[facility] HermannCHEM PANEL 2017-04-28 09:58:004.70[facility] HermannCHEM ALKLN7057-95-18 09:58:009.7[facility] OudkisiWWQAXDRTUA8204-16-05 09:58:86140Ompocxmt DykjlkkTBIMSHOQMP3722-82-23 09:58:008.1[facility] TpbzrtmASYXJTBYKT7876-54-90 09:58:0013.6[facility] FPTHEXOZAW4191-43-87 09:58:00 Test Item Value Reference Range Interpretation Comments MCH (test code = MCH) 34.9 pg 27.0-31.0 [facility] IvuwykqRWOBPABDJE5189-76-72 09:58:0035.4[facility] HermannHEMATOLOGY 2017-04-28 09:58:006.5[facility] MvxuberWBJZKFLLOB9877-45-74 09:58:0098.6[facility] YzoqnwpWRRCPUUKZB5470-61-29 09:58:0018.5[facility] ZkwzjccQIEAXNGPXQ9874-86-76 09:58:004.2[facility] WnaoixvUNRGCNAPTS0411-04-13 09:58:001.87[facility] UAPOQITYPH9237-20-19 09:58:000.4[facility] KmganekWEGNRHRZPM8967-95-15 09:58:000.1 [facility] EmgbxjsHCHSDSQVQK3741-17-30 09:58:002.7[facility] HermannHEMATOLOGY 2017-04-28 09:58:001.0[facility] NzpltcmVHFPZPYOIW2738-00-09 09:58:0024.2[facility] AoifonoCTUWMKENIB6635-53-76 09:58:0064.0[facility] NemgzhpNNCPMSVOZT5025-36-71 09:58:008.8[facility] GvkmuglYVWSJBROVN2218-95-49 09:58:002.1[facility] TUCNZSFEWM1328-81-31 09:58:000.9[facility] CmufhbhBCNCCJBLEA5394-59-87 01:51:004.2 [facility] LnltfodVFFVBECVDC1869-23-31 01:51:0019.3[facility] HermannHEMATOLOGY 2017-04-28 01:51:0098.8[facility] QrrxgnuJOXQSPYAAP4735-29-52 01:51:007.0[facility] LatyfjoHZNQNFCUCA9284-11-05 01:51:00 Test Item Value Reference Range Interpretation Comments MCH (test code = MCH) 35.6 pg 27.0-31.0 [facility] WokkhdmVDRYWGSXFL7662-79-10 01:51:001.95[facility] HermannHEMATOLOGY 2017-04-28 01:51:008.6[facility] BzotimkBZADXPQCLV8166-35-10 01:51:17837Vvmwufcg LuwpyqvGZEQFSUCCF6465-24-11 01:51:0036.0[facility] GnqsjztYSCIWNRHDS3548-73-44 01:51:0013.8[facility] DeqdyvyTLHXHKQTWVHE2057-61-53 10:40:0097[facility] COFHJBHSKNNG1726-12-01 10:40:47854Hwjzijsl GlaoymtTMACDFSOIJPH3002-74-21 10:40:003.24[facility] ZgsxtjgUJDWZBNSHDYW8076-18-70 10:40:0031[facility] TVUMTLXTUIQA0514-77-86 10:40:008.4[facility] CuwvvicKXTOVVLNEBPT4242-91-09 10:40:009.2[facility] AgtkwrdZYDPABGWNGPG1560-78-31 10:40:0075[facility] ORRRVYKNBBHK7478-16-48 10:40:0022[facility] BigrcwgMPMWQAAPDFVW1636-61-71 10:40:00 14[facility] QrziomtDKBWCBKQBX7119-50-38 15:31:00Negative *NA*(04/22/17 9:31 AM) [facility]annANEMIA USODN2700-82-12 13:14:13531Tufuoiou HermannANEMIA STUDY 2017-04-22 13:14:336514Bookadcp HermannANEMIA LRURW1755-48-47 13:14:0016[facility] HermannANEMIA IXUYH3795-41-68 13:14:74095Hepuhfgw HermannANEMIA VIBPJ4937-58-09 13:14:55190Sidvzskr HermannANEMIA DHKYW6083-07-36 13:14:0025[facility] CARDIAC XENIWVS5755-78-26 13:14:000.06[facility] HermannCARDIAC ZAXDBRK9567-67-60 13:14:0070[facility] HermannCARDIAC UGCVEUR3495-79-57 13:14:5498371Drxfooai HermannCHEM XFRZN4092-00-93 13:14:002.4[facility] HermannCHEM KEARG2101-23-21 13:14:002.2[facility] HermannCHEM HMUWG2447-48-90 13:14:00 Test Item Value Reference Range Interpretation Comments B/C Ratio (test code = B/C Ratio) 7 1 6-25 [facility] HermannCHEM ZIJCC6098-84-70 13:14:00 Test Item Value Reference Range Interpretation Comments A/G Ratio (test code = A/G Ratio) 1.0 1 0.7-1.6 [facility] HermannCHEM IBART4464-09-72 13:14:002.9[facility] HermannCHEM PANEL 2017-04-22 13:14:002.9[facility] HermannCHEM QHDSB0821-89-76 13:14:000.6[facility] HermannCHEM MAMTS1470-92-34 13:14:0018[facility] HermannCHEM LYXXJ7910-06-92 13:14:0016[facility] HermannCHEM OTBJN5544-92-34 13:14:0069[facility] HermannCHEM NWSYG6127-26-74 13:14:005.8[facility] LhnmxgiDQTCNTHAKN6713-12-80 13:14:000.5 [facility] VodftulKZHLLMWOPG1179-55-27 13:14:000.6[facility] HermannHEMATOLOGY 2017-04-22 13:14:0083.9[facility] VgatvbzBMOQAZDHQQ1378-28-13 13:14:000.5[facility] EjjsiqgAPFJWGIZKB7305-57-18 13:14:000.7[facility] XfpdshbLRYVQJJPEE9225-55-58 13:14:008.2[facility] LzezhecAVXEOCBHAZ9887-72-70 13:14:006.7[facility] YIBCRKYTDB1404-44-36 13:14:005.7[facility] ExxldgnTKRLGSTZUO6097-03-97 13:14:00 Test Item Value Reference Range Interpretation Comments INR (test code = INR) 1.12 1 0.85-1.17 [facility] IvfasgkDECJNEERJO9618-39-58 13:14:00 Test Item Value Reference Range Interpretation Comments PT (test code = PT) 14.4 s 12.0-14.7 [facility] DsgfrmmKYXKNPWNWP8030-81-35 13:14:00 Test Item Value Reference Range Interpretation Comments PTT (test code = PTT) 34.0 s 22.9-35.8 [facility] HermannCARDIAC NQGJHBJ5192-63-01 09:15:000.04[facility] HermannCARDIAC QXCHBRM4625-23-46 09:15:0085[facility] HermannCARDIAC LCFCDVD9375-28-56 09:15:00 <0.6[facility] HermannCARDIAC PQWFIOC2477-52-47 09:15:00<0.5[facility] BACTERIAL - DKTFTMDR0218-62-59 08:38:00Negative (04/22/17 2:38 AM)[facility] CHEM JBADN8626-82-37 08:38:0018[facility] HermannCHEM TZTYC9794-22-27 08:38:0074 [facility] HermannCHEM AYXPO0031-20-98 08:38:000.7[facility] HermannCHEM PANEL 2017-04-22 08:38:003.1[facility] HermannCHEM YSGVT1805-92-74 08:38:006.9[facility] HermannCHEM TGSPJ7117-12-28 08:38:003.8[facility] HermannCHEM WJVKU6577-79-97 08:38:00 Test Item Value Reference Range Interpretation Comments A/G Ratio (test code = A/G Ratio) 0.8 1 0.7-1.6 [facility] HermannCHEM UKHRK6135-42-56 08:38:0014[facility] HermannCHEM PANEL 2017-04-22 08:38:00 Test Item Value Reference Range Interpretation Comments B/C Ratio (test code = B/C Ratio) 7 1 6-25 [facility] HermannCHEM CWOTN7697-18-20 08:38:001.9[facility] HermannHEMATOLOGY 2017-04-22 08:38:00 Test Item Value Reference Range Interpretation Comments INR (test code = INR) 1.10 1 0.85-1.17 [facility] AhxhicaURKHTHZOLS1231-35-23 08:38:00 Test Item Value Reference Range Interpretation Comments PT (test code = PT) 14.2 s 12.0-14.7 [facility] ZvtdoxnSDBOTGNSIH9196-20-39 08:38:00 Test Item Value Reference Range Interpretation Comments PTT (test code = PTT) 37.7 s 22.9-35.8 [facility]blOTFJCWXXQR5803-07-58 08:38:000.1[facility]
--- OUTSIDE RECORDS SUMMARY | 2019-10-11 12:38 | XMS REPORT | Summary of Care ---
:1930 Author Organization [facility] Address [address] [place] [address] Care Team Providers Name Role Phone Brielle Anna Marie Jackson Primary Care Provider Encounter Details Date Type Department Care Team Description 10/06/2019 Letter (Out) [facility] [employer] [facility] [employer] Message s Doctor Unassigned, No [address] [facility] [place] [address] [address] [place] [address] [place] [address] Allergies Active Allergy Reactions Severity Noted Date [...] Added automatically from request for rachel holder [id number] documented as of this encounter (statuses as [...] filedocumented in this encounter Plan of Treatment Date Type Specialty Care Team Description 10/06/2019 Laboratory Only Family Medicine Radha Rosado FNP [address] [address] Suspected Covid-19 Lab, Adc Fam Pob I Virus Infection (Primary Dx) Health Maintenance Due Date Last Done Comments DTaP,Tdap,and Td Vaccines (1 - Tdap) 1941 Zoster Recombinant Vaccine (SHINGRIX) (1 of 2) 1980 Medicare Wellness Visit 09/27/1995 Osteoporosis Screening 09/27/1995 PNEUMOCOCCAL VACCINES 65+ (1 of 2 - PCV13) 09/27/1995 INFLUENZA VACCINE (#1) 2019 Depression Screening 12/27/2019 12/26/2018 documented as of this encounter Implants Implanted Type Area Studio Owner Device Shelf Model / Identifier Expiration Date Ser ial / Lot Graft, [place] Propaten Vascular Standard-W alled 6mm 40cm #[id number] - [id number] Left: Arm W L [place] 12/14/2021 [id number] / Implanted: Qty: 1 on 09/28/2018 by Silvana Sanchez am, MD at [facility] [id number] / 0 documented as of this encounter Results Not on filedocumented in this encounter Additional Health Concerns Infection Onset Date Last Indicated Resolved Time COVID-19 Rule Out 10/06/2019 10/06/2019 documented as of this encounter Insurance Payer Benefit Plan Subscriber ID Effective Dates Phone Address Type / Group [employer] - CHOICE CARE [id number] 2018-Linda smith Adv MANAGED t PPO MEDICARE documented as of this encounter
[2019-10-11 13:16] LABS: Absolute Lymphocytes (CBC) 0.8 K/uL (0.7-4.9); Basophils % 0.6 % (0-1.3); Hematocrit 32.6 % (36.0-45.0); Lymphocytes % 23.2 % (15.3-44.8); MPV 9.4 fL (7.6-11.3); Protime INR 1.04; RBC Red Blood Cell Count 3.58 M/uL (3.86-4.86)
--- NOTE | 2019-10-11 13:27 | RAD REPORT ---
EXAM DESCRIPTION: Joy Single View10/11/2019 1:17 pm CLINICAL HISTORY: sob COMPARISON: August 2019 FINDINGS: Moderate bilateral alveolar opacities within the lungs which is somewhat asymmetric. The h eart remains enlarged. IMPRESSION: Moderate bilateral alveolar opacities within the lungs. This can be seen with Covid pne umonia
[2019-10-11 13:41] LABS: Albumin 2.8 g/dL (3.4-5.0); Bilirubin Direct 0.3 mg/dL (0-0.2); Bilirubin Total 0.8 mg/dL (0.2-1.0); Protein, Total 7.3 g/dL (6.4-8.2); Troponin (Emerg Dept Use Only) 0.12 ng/mL (0.0-0.045)
[2019-10-11 14:00] LABS: Magnesium 2.1 mg/dL (1.8-2.4); Potassium 4.1 mmol/L (3.5-5.1)
--- NOTE | 2019-10-11 14:24 | ER ---
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 Coronavirus screen: Patient denies a cough. Patient reports shortness of breath or difficulty breathing. Patient reports a measured and/or subjective temperature greater than 100.4F. Patient denies travel on a cruise ship or to a country the [facility] currently lists as an affected area. Patient denies contact with known and/or suspected case of COVID-19. Ebola Screen: Patient negative for fever greater than or equal to 101.5 degrees Fahrenheit, and additional compatible Ebola Virus Disease symptoms Patient denies exposure to infectious person. Patient denies travel to an Ebola-affected area in the 21 days before illness onset. No symptoms or risks identified at this time. Resp Distress? No respiratory distress is noted at this time. Initial Sepsis Screen: Does the patient meet any 2 criteria? No. Patient's initial sepsis screen is negative. Does the patient have a suspected source of infection? No. Patient's initial sepsis screen is negative. Risk Assessment: Do you want to hurt yourself or someone else? Patient reports no desire to harm self or others. Onset of symptoms was October 11, 2019. 12:40 Method Of Arrival: Wheelchair em 12:40 Acuity: KEKE 3 em Historical: - Allergies: 12:51 Karlene; em 12:51 Bactrim; em 12:51 Ciprofloxacin; em 12:51 Demerol; em 12:51 PENICILLINS; em 12:51 Talwin; em 12:51 tequin; em - Home Meds: 12:51 aspirin 81 mg Oral TbEC 1 tab once daily [Active]; Plavix 75 mg Oral tab 1 tab once em daily [Active]; hydralazine 50 mg Oral tab 1 tab 2 times per day [Active]; isosorbide mononitrate 30 mg Oral Tb24 twice a day [Active]; nifedipine 90 mg Oral TbER twice a day [Active]; doxazosin 8 mg Oral tab twice a day [Active]; metoprolol tartrate 50 mg Oral tab 1 tab Mon,Wed, and Fri, take after dialysis [Active]; docusate sodium 100 mg Oral tab 2 times per day [Active]; Tums 300 mg (750 mg) Oral chew [Active]; DIALYVITE 800 0.8 mg Oral tab [Active]; tramadol 50 mg Oral tab as needed for Pain [Active]; Lipitor 40 mg Oral tab 1 tab once daily [Active]; ramipril 10 mg Oral cap 1 cap once daily [Active]; doxazosin 8 mg oral tab [Active]; sertraline 50 mg Oral tab 1 tab once daily [Active]; melatonin 5 mg Oral tab nightly [Active]; - PMHx: 12:51 CHF; Diabetes - NIDDM; Dialysis; ESRD; Hypertension; em - PSHx: 12:51 Hysterectomy; Cholecystectomy; em - Immunization history:: Adult Immunizations up to date. - Social history:: Smoking status: Patient denies any tobacco usage or history of. Screenin:14 Abuse screen: Denies threats or abuse. Nutritional screening: No deficits noted. ll1 Tuberculosis screening: No symptoms or risk factors identified. Fall Risk No fall in past 12 months (0 pts). IV access (20 points). Ambulatory Aid- Crutches/Cane/Walker (15 pts). Gait- Weak (10 pts.). Total Paris Fall Scale indicates High Risk Score (45 or more points). Fall prevention measures have been instituted. Side Rails Up X 2 Placed Close to Nursing Station Frequent Obs/Assessments Occuring Family Present and informed to notify staff if the need to leave the bedside As available patient and family educated on Fall Prevention Program and Strategies. Assessment: 13:13 General: Appears in no apparent distress. Behavior is calm, cooperative. Pain: Denies ll1 pain. Neuro: No deficits noted. Cardiovascular: No deficits noted. Heart tones S1 S2 Capillary refill < 3 seconds Clubbing of nail beds Patient's skin is warm and dry. Rhythm is 1st degree AV block. Respiratory: Airway is patent Trachea midline Respiratory effort is even, unlabored, Respiratory pattern is regular, symmetrical, Breath sounds are diminished bilaterally. the patient has mild shortness of breath. GI: No deficits noted. Musculoskeletal: Circulation, motion, and sensation intact. Capillary refill < 3 seconds, Reports body aches, fatigue, weakness. 14:15 Reassessment: Patient appears in no apparent distress at this time. No changes from ll1 previously documented assessment. Patient and/or family updated on plan of care and expected duration. Pain level reassessed. Patient is alert, oriented x 3, equal unlabored respirations, skin warm/dry/pink. 15:15 Reassessment: Patient appears in no apparent distress at this time. No changes from ll1 previously documented assessment. Patient and/or family updated on plan of care and expected duration. Pain level reassessed. Patient is alert, oriented x 3, equal unlabored respirations, skin warm/dry/pink. 16:15 Reassessment: Patient appears in no apparent distress at this time. No changes from ll1 previously documented assessment. Patient and/or family updated on plan of care and expected duration. Pain level reassessed. Patient is alert, oriented x 3, equal unlabored respirations, skin warm/dry/pink. Vital Signs: 12:40 BP 128 / 42; Pulse 72; Resp 20; Temp 98.9(O); Pulse Ox 92% on R/A; Weight 69.4 kg; em Height 5 ft. 5 in. (165.10 cm); Pain 0/10; 12:58 Pulse Ox 88% on R/A; em 13:05 Resp 20; Pulse Ox 95% on 2 lpm NC; ll1 14:07 BP 137 / 57; Pulse 64; Resp 19; Pulse Ox 98% on 2 lpm NC; ll1 15:00 BP 134 / 52; Pulse 64; Resp 19; Pulse Ox 98% on 2 lpm NC; ll1 15:55 BP 134 / 55; Pulse 60; Resp 19; Pulse Ox 99% on 2 lpm NC; ll1 16:04 BP 131 / 61; Pulse 67; Resp 19; Temp 97.5; Pulse Ox 98% on 2 lpm NC; Pain 0/10; ll1 12:40 Body Mass Index 25.46 (69.40 kg, 165.10 cm) em 12:58 placed on 2 L NC, provider notified em ED Course: 12:22 Patient arrived in ED. mr 12:31 Bentley Parham, RN is Primary Nurse. [facility] 12:39 Escobar Rhoades PA is PHCP. [facility] 12:39 Raudel Agudelo MD is Attending Physician. [facility] 12:43 Triage completed. em 12:45 Missed attempt(s): 22 gauge in right forearm. Bleeding controlled, band aid applied, ll1 catheter tip intact. 12:51 Arm band placed on. em 13:05 Inserted saline lock: 20 gauge in right antecubital area, using aseptic technique. ll1 Blood collected. 13:15 Patient has correct armband on for positive identification. Bed in low position. Call ll1 light in reach. Side rails up X 1. 13:17 XRAY Chest (1 view) In Process Unspecified. EDMS 14:22 Ady Matute MD is Hospitalizing Provider. m 16:13 No provider procedures requiring assistance completed. Patient admitted, IV remains in ll1 place. Administered Medications: No medications were administered Outcome: 14:22 Decision to Hospitalize by Provider. jmm 16:15 Admitted to Tele accompanied by tech, via stretcher, room 416, Report called to [facility] JONH Ramirez on 4th. 16:15 Condition: stable 16:34 Patient left the ED. [facility] Signatures: Dispatcher [employer] EDME Escobar Rhoades PA PA jm Ara Jimenez mr CrespoWillie, RN RN em Bentley Parham, RN RN [facility]
--- NOTE | 2019-10-11 15:43 | P.HP ---
Certification for Inpatient Patient admitted to: Observation With expected LOS: <2 Midnights Patient will require the following post-hospital care: None Practitioner: I am a practitioner with admitting privileges, knowledge of patient current condition, hospital course, and medical plan of care. Services: Services provided to patient in accordance with Admission requirements found in Title 42 Section 412.3 of the Code of Federal Regulations <Tc Jernigan - Last Filed: 10/11/19 15:44> Patient History Date of Service: 10/11/19 Reason for admission: COVID pneumonia, volume overload Home medications list reviewed: Yes - Past Medical/Surgical History Diabetic: Yes -: DEPRESSION -: CHRONIC KIDNEY DISEASE ON HD -: CAD -: MALIGNANT HYPERTENSION -: HYPERLIPIDEMIA -: AORTIC STENOSIS -: RENAL ARTERY STENOSIS -: DM -: CHF -: ESRD -: STENT PLACEMENT -: gall bladder removed -: R kidney stent placement -: cataract bilateral repair -: left carotid artery repair. -: left AVF -: hysterectomy -: appendectomy Psychosocial/ Personal History: Patient lives at home with her family - Family History Family History: Reviewed- Non-Contributory - Family History Sister -: Heart disease Brother -: Heart disease, Cancer - Social History Alcohol use: No CD- Drugs: Yes Caffeine use: Yes Place of Residence: Home <Tc Jernigan - Last Filed: 10/11/19 15:44> Date of Service: 10/12/19 <Prasanth Matute - Last Filed: 10/12/19 12:09> Allergies ciprofloxacin Allergy (Verified 02/15/19 22:51) Rash fexofenadine Allergy (Verified 02/15/19 22:51) Rash gatifloxacin Allergy (Verified 02/15/19 22:51) Hives/Rash meperidine [From Demerol] Allergy (Verified 08/05/19 00:13) Nausea/Vomiting Penicillins Allergy (Verified 02/15/19 22:51) Hives/Rash pentazocine [From Talwin] Allergy (Verified 02/15/19 22:51) Unknown sulfamethoxazole [From Bactrim] Allergy (Verified 08/05/19 00:13) Hives trimethoprim [From Bactrim] Allergy (Verified 08/05/19 00:13) Hives Home Medications: ALPRAZolam [Xanax*] 0.25 mg PO Q6HP PRN 07/23/20 Acetaminophen [Tylenol Extra Strength] 500 mg PO PRN 10/11/19 Aspirin [Aspirin EC 81 MG] 81 mg PO DAILY 10/11/19 Atorvastatin Calcium [Lipitor*] 40 mg PO BEDTIME 10/11/19 Calcium Carbonate [Tums Ultra] 1,000 mg PO BIDWM 10/11/19 Cholecalciferol (Vitamin D3) [Vitamin D3] 5,000 unit PO SEECOM 10/11/19 Clopidogrel Bisulfate [Plavix*] 75 mg PO DAILY 10/11/19 Cranberry Fruit Extract/Vit C [Azo Cranberry Softgel] 2 each PO BID 10/11/19 Cyanocobalamin [Vitamin B-12*] 1,000 mcg PO DAILY 10/11/19 Docusate [Colace Cap*] 100 mg PO BID 10/11/19 Doxazosin Mesylate 8 mg PO BID 10/11/19 Folic Acid/Vit B Complex and C [Dialyvite 800 Chewable Wafer] 800 mcg PO DAILY AT SUPPER 10/11/19 Hydralazine HCl [Apresoline] 50 mg PO BID 10/11/19 Isosorbide Mononitrate [Isosorbide Mononitrate ER] 90 mg PO DAILY 10/11/19 Melatonin 5 mg PO BEDTIME PRN PRN 10/11/19 Metoprolol Tartrate [Lopressor*] 50 mg PO BID 10/11/19 NIFEdipine [Nifedipine ER] 90 mg PO BID 10/11/19 Ramipril [Altace] 10 mg PO BEDTIME 10/11/19 Sertraline [Zoloft*] 50 mg PO BEDTIME 10/11/19 traMADol HCL [Ultram*] 50 mg PO Q6HP PRN 10/11/19 Review of Systems 10-point ROS is otherwise unremarkable General: Fever Respiratory: Cough, Shortness of Breath <Tc Jernigan - Last Filed: 10/11/19 15:44> Physical Examination - Physical Exam General: Alert, In no apparent distress HEENT: Atraumatic, Normocephalic Neck: Supple Respiratory: Crackles/rales (Bibasilar) Cardiovascular: Normal S1 S2, Edema Capillary refill: <2 Seconds Gastrointestinal: Normal bowel sounds Musculoskeletal: No swelling, No contractures, No erythema Integumentary: No significant lesion, No tenderness/swelling, No erythema Neurological: Normal tone Lymphatics: No axilla or inguinal lymphadenopathy Urinary: Dialysis catheter - Studies Laboratory Data (last 24 hrs) 10/11/19 12:45: PT 12.3, INR 1.04 10/11/19 12:45: WBC 3.4 L, Hgb 10.8 L, Hct 32.6 L, Plt Count 144 L 10/11/19 12:45: Sodium 136, Potassium 4.1, BUN 26 H, Creatinine 4.62 H, Glucose 99, Magnesium 2.1, Total Bilirubin 0.8, AST 56 H, ALT 23, Alkaline Phosphatase 90 <Tc Jernigan - Last Filed: 10/11/19 15:44> - Studies Laboratory Data (last 24 hrs) 10/11/19 12:45: PT 12.3, INR 1.04 10/11/19 12:45: WBC 3.4 L, Hgb 10.8 L, Hct 32.6 L, Plt Count 144 L 10/11/19 12:45: Sodium 136, Potassium 4.1, BUN 26 H, Creatinine 4.62 H, Glucose 99, Magnesium 2.1, Total Bilirubin 0.8, AST 56 H, ALT 23, Alkaline Phosphatase 90 <Prasanth Matute - Last Filed: 10/12/19 12:09> Assessment and Plan - Plan Assessment COVID-19 pneumonia complicated with suspected volume overload Acute on chronic diastolic heart failure with suspected volume overload End-stage renal disease on chronic hemodialysis Tuesday Diabetes mellitus type 2 Hyperlipidemia Hypertension Coronary artery disease Plan COVID-19 pneumonia complicated with suspected volume overload: Patient will be given Decadron 2 mg IV q.8h. Supplemental oxygen with nasal cannula. DVT prophylaxis with heparin 5000 units subcutaneous once daily. Have ordered echocardiogram to be completed if not recently done. Will consult nephrology to assist with volume overload as patient does not make urine. Acute on chronic diastolic heart failure with suspected volume overload: Continue as above. End-stage renal disease on chronic hemodialysis Tuesday: Nephrology has been consulted to help manage patient's dialysis needs. Appreciate further input from nephrology. Diabetes mellitus type 2: A.c. HS Accu-Cheks, sliding scale insulin therapy. Will restart home medications. Hyperlipidemia: Obtain and continue patient's home medications. Hypertension: Obtain and continue patient's home medications. Coronary artery disease: Obtain and continue patient's home medications. Discharge Plan: Home Plan to discharge in: 24 Hours - Advance Directives Does patient have a Living Will: Yes Does patient have a Durable POA for Healthcare: Yes - Code Status/Comfort Care Code Status Assessed: Yes Critical Care: No Time Spent Managing Pts Care (In Minutes): 55 <Tc Jernigan - Last Filed: 10/11/19 15:44> Physician Review Additional Text: Patient was seen and examined and findings were discussed Agree with the assessment and plan as documented by the YAJAIRA Will try to wean off oxygen Monitor closely <Prasanth Matute - Last Filed: 10/12/19 12:09>
[2019-10-11] MEDS ORDERED: ONDANSETRON 4 MG/2 ML VIAL IV PRN (16:19)
[2019-10-11] MEDS: INSULIN -REGULAR HUMAN 50 UNIT/0.5 ML ML SQ SCH ×2 (16:30→21:00)
--- NOTE | 2019-10-11 16:35 | EDPHYS ---
Physician Documentation [facility] Name: Erendira Graham Age: 89 yrs Sex: Female : 1930 Arrival Date: 10/11/2019 Time: 12:22 Bed 5 Private MD: ED Physician Raudel Agudelo HPI: 10/10 12:49 This 89 yrs old Black Female presents to ER via Wheelchair with complaints of COVID+, jmm Congestion, Fever, Breathing Difficulty. 12:49 The patient or guardian reports cough. Onset: The symptoms/episode began/occurred jmm gradually, 4 day(s) ago. Modifying factors: The symptoms are alleviated by nothing. the symptoms are aggravated by nothing. This is an 89 year old female with a history of ESRD, DM, HTN, CHF that presents to the ED with complaints of cough, congestion, shortness of breath worsening since a diagnosis of COVID-19 earlier this week. . Historical: - Allergies: 12:51 Karlene; em 12:51 Bactrim; em 12:51 Ciprofloxacin; em 12:51 Demerol; em 12:51 PENICILLINS; em 12:51 Talwin; em 12:51 tequin; em - Home Meds: 12:51 aspirin 81 mg Oral TbEC 1 tab once daily [Active]; Plavix 75 mg Oral tab 1 tab once em daily [Active]; hydralazine 50 mg Oral tab 1 tab 2 times per day [Active]; isosorbide mononitrate 30 mg Oral Tb24 twice a day [Active]; nifedipine 90 mg Oral TbER twice a day [Active]; doxazosin 8 mg Oral tab twice a day [Active]; metoprolol tartrate 50 mg Oral tab 1 tab Mon,Wed, and Fri, take after dialysis [Active]; docusate sodium 100 mg Oral tab 2 times per day [Active]; Tums 300 mg (750 mg) Oral chew [Active]; DIALYVITE 800 0.8 mg Oral tab [Active]; tramadol 50 mg Oral tab as needed for Pain [Active]; Lipitor 40 mg Oral tab 1 tab once daily [Active]; ramipril 10 mg Oral cap 1 cap once daily [Active]; doxazosin 8 mg oral tab [Active]; sertraline 50 mg Oral tab 1 tab once daily [Active]; melatonin 5 mg Oral tab nightly [Active]; - PMHx: 12:51 CHF; Diabetes - NIDDM; Dialysis; ESRD; Hypertension; em - PSHx: 12:51 Hysterectomy; Cholecystectomy; em - Immunization history:: Adult Immunizations up to date. - Social history:: Smoking status: Patient denies any tobacco usage or history of. ROS: 12:49 Constitutional: Negative for fever, chills, and weight loss, Cardiovascular: Negative jmm for chest pain, palpitations, and edema, Respiratory: Negative for shortness of breath, cough, wheezing, and pleuritic chest pain. 12:49 ENT: Positive for sinus congestion. 12:49 Respiratory: Positive for cough, shortness of breath. 12:49 All other systems are negative. Exam: 12:49 Constitutional: This is a well developed, well nourished patient who is awake, alert, jmm and in no acute distress. Head/Face: atraumatic. Eyes: EOMI, no conjunctival erythema appreciated ENT: Moist Mucus Membranes Neck: Trachea midline, Supple Chest/axilla: Normal chest wall appearance and motion. Cardiovascular: Regular rate and rhythm. No edema appreciated Respiratory: Normal respirations, no respiratory distress appreciated Abdomen/GI: Non distended, soft Back: Normal ROM Skin: General appearance color normal MS/ Extremity: Moves all extremities, no obvious deformities appreciated, no edema noted to the lower extremities Neuro: Awake and alert, normal gait Psych: Behavior is normal, Mood is normal, Patient is cooperative and pleasant Vital Signs: 12:40 BP 128 / 42; Pulse 72; Resp 20; Temp 98.9(O); Pulse Ox 92% on R/A; Weight 69.4 kg; em Height 5 ft. 5 in. (165.10 cm); Pain 0/10; 12:58 Pulse Ox 88% on R/A; em 13:05 Resp 20; Pulse Ox 95% on 2 lpm NC; ll1 14:07 BP 137 / 57; Pulse 64; Resp 19; Pulse Ox 98% on 2 lpm NC; ll1 15:00 BP 134 / 52; Pulse 64; Resp 19; Pulse Ox 98% on 2 lpm NC; ll1 15:55 BP 134 / 55; Pulse 60; Resp 19; Pulse Ox 99% on 2 lpm NC; ll1 16:04 BP 131 / 61; Pulse 67; Resp 19; Temp 97.5; Pulse Ox 98% on 2 lpm NC; Pain 0/10; ll1 12:40 Body Mass Index 25.46 (69.40 kg, 165.10 cm) em 12:58 placed on 2 L NC, provider notified em MDM: 12:[address] [facility] 14:20 Data reviewed: vital signs, nurses notes. Counseling: I had a detailed discussion with janet the patient and/or guardian regarding: the historical points, exam findings, and any diagnostic results supporting the discharge/admit diagnosis, lab results, the need for further work-up and treatment in the hospital. ED course: I discussed the patient with Tc SALAS whom accepted patient to Dr. Matute. 10/10 12:42 Order name: Basic Metabolic Panel; Complete Time: 14: [facility] 10/10 12:42 Order name: CBC with Diff; Complete Time: 13: [facility] 10/10 12:42 Order name: LFT's; Complete Time: 14: [facility] 10/10 12:42 Order name: Magnesium; Complete Time: 14: [facility] 10/10 12:42 Order name: NT PRO-BNP; Complete Time: 14: [facility] 10/10 12:42 Order name: PT-INR; Complete Time: 13: [facility] 10/10 12:42 Order name: Troponin (emerg Dept Use Only); Complete Time: 14: [facility] 10/10 12:42 Order name: XRAY Chest (1 view); Complete Time: 13:28 [facility] 10/10 12:42 Order name: EKG; Complete Time: 12:43 [facility] 10/10 12:42 Order name: Cardiac monitoring; Complete Time: 13: [facility] 10/10 12:42 Order name: EKG - Nurse/Tech; Complete Time: 13: [facility] 10/10 12:42 Order name: Procalcitonin; Complete Time: 14: [facility] 10/10 12:42 Order name: Blood Culture Adult (2) [facility] 10/10 12:42 Order name: Lactate; Complete Time: 13:28 [facility] 10/10 12:42 Order name: IV Saline Lock; Complete Time: 13:25 [facility] 10/10 12:42 Order name: Labs collected and sent; Complete Time: 13: [facility] 10/10 12:42 Order name: O2 Per Protocol; Complete Time: : [facility] 10/10 12:42 Order name: O2 Sat Monitoring; Complete Time: : [facility] Administered Medications: No medications were administered Disposition: 10/11 07:27 Co-signature as Attending Physician, Raudel Agudelo MD I agree with the assessment and kdr plan of care. Disposition: 10/11/19 14:22 Hospitalization ordered by Ady Matute for Observation. Preliminary diagnosis are End stage renal disease, Acute combined systolic (congestive) and diastolic (congestive) heart failure, Coronavirus infection, unspecified, Hypoxia. - Bed requested for Telemetry/MedSurg (observation). - Status is Observation. ll1 - Condition is Stable. - Problem is new. - Symptoms have improved. Signatures: Dispatcher [employer] EDRaudel Brush MD MD kdr Mickail, Joel, PA PA [facility] Willie Crespo, Mayela Bearden RN, RN RN ss Lewis, Lynsay, RN RN ll1 Corrections: (The following items were deleted from the chart) 10/10 16:02 14:22 Hospitalization Ordered by Ady Matute MD for Observation. Preliminary ss diagnosis is End stage renal disease; Acute combined systolic (congestive) and diastolic (congestive) heart failure; Coronavirus infection, unspecified; Hypoxia. Bed requested for Telemetry/MedSurg (observation). Status is Observation. Condition is Stable. Problem is new. Symptoms have improved. [facility] 16:34 16:02 10/11/2019 14:22 Hospitalization Ordered by Ady Matute MD for Observation. ll1 Preliminary diagnosis is End stage renal disease; Acute combined systolic (congestive) and diastolic (congestive) heart failure; Coronavirus infection, unspecified; Hypoxia. Bed requested for Telemetry/MedSurg (observation). Status is Observation. Condition is Stable. Problem is new. Symptoms have improved. ss
[2019-10-11 17:40] VITALS: BMI 25.4
[2019-10-11] MEDS: dexAMETHasone 4 MG/ML VIAL IV SCH (17:41)
[2019-10-11] MEDS: DOXAZOSIN 4 MG TAB PO SCH (21:00)
[2019-10-11] MEDS ORDERED: MANNITOL 25% 12.5 GM/50 ML VIAL IV PRN (21:33)
[2019-10-11] MEDS ORDERED: NA CHLORIDE 0.9% 1,000 ML IV PRN (21:33)
[2019-10-11] MEDS ORDERED: ALBUMIN HUMAN 25% 50 ML IV SCH (22:00)
[2019-10-11] MEDS: ATORVASTATIN 40 MG TAB PO SCH (22:35)
[2019-10-11] MEDS: TRAMADOL HCL 50 MG TAB PO PRN (22:35)
[2019-10-11] MEDS: ISOSORBIDE MONO 10 MG TAB PO SCH (22:36)
[2019-10-11] MEDS: HYDRALAZINE HCL 25 MG TABLET PO SCH (22:36)
[2019-10-11] MEDS: HEPARIN 5000 UNIT/ML 1 ML VIAL SQ SCH (22:36)
[2019-10-12] MEDS: dexAMETHasone 4 MG/ML VIAL IV SCH ×3 (01:46→16:57)
[2019-10-12 06:18] LABS: Absolute Lymphocytes (CBC) 0.7 K/uL (0.7-4.9); Basophils % 0.7 % (0-1.3); Hematocrit 31.8 % (36.0-45.0); Lymphocytes % 26.9 % (15.3-44.8); MPV 8.5 fL (7.6-11.3)
[2019-10-12 06:52] LABS: Magnesium 2.1 mg/dL (1.8-2.4); Potassium 3.9 mmol/L (3.5-5.1)
[2019-10-12] MEDS: INSULIN -REGULAR HUMAN 50 UNIT/0.5 ML ML SQ SCH ×4 (07:30→21:00)
[2019-10-12] MEDS: ASPIRIN EC 81 MG TAB PO SCH (08:23)
[2019-10-12] MEDS: CLOPIDOGREL 75 MG TABLET PO SCH (08:23)
[2019-10-12] MEDS: HEPARIN 5000 UNIT/ML 1 ML VIAL SQ SCH ×2 (08:23→20:13)
[2019-10-12] MEDS: HYDRALAZINE HCL 25 MG TABLET PO SCH ×2 (08:23→19:25)
[2019-10-12] MEDS: ISOSORBIDE MONO 10 MG TAB PO SCH ×2 (08:26→20:12)
[2019-10-12] MEDS: DOXAZOSIN 4 MG TAB PO SCH ×2 (08:27→20:12)
[2019-10-12] MEDS ORDERED: DOXAZOSIN 2 MG TAB ONE (08:36)
[2019-10-12 08:51] LABS: Anisocytosis 1+; Blood Morphology Comment NOTED (NOT SEEN); Platelet Estimate ADEQ; Poikilocytosis 1+; Urine White Blood Cell Casts OK
[2019-10-12] MEDS: TRAMADOL HCL 50 MG TAB PO PRN (09:28)
--- NOTE | 2019-10-12 09:37 | P.PN ---
Subjective Date of Service: 10/12/19 Chief Complaint: COVID pneumonia, volume overload Subjective: No new changes, Other (C/o Hip pain) Review of Systems 10-point ROS is otherwise unremarkable Physical Examination - Vital Signs Temperature: 99.2 F Blood Pressure: 161/53 Pulse: 84 Respirations: 20 Pulse Ox (%): 98 - Physical Exam General: Alert, In no apparent distress HEENT: Atraumatic, Normocephalic Neck: Supple Respiratory: Clear to auscultation bilaterally, Normal air movement Cardiovascular: Normal pulses, Regular rate/rhythm Capillary refill: <2 Seconds Gastrointestinal: Soft and benign, W/out hepatosplenomegaly Musculoskeletal: No swelling, Other (Tenderness in bilateral hip ) Integumentary: No rashes, No breakdown Neurological: Normal speech, Normal strength at 5/5 x4 extr Lymphatics: No axilla or inguinal lymphadenopathy - Studies Laboratory Data (last 24 hrs) 10/11/19 12:45: PT 12.3, INR 1.04 10/11/19 12:45: WBC 3.4 L, Hgb 10.8 L, Hct 32.6 L, Plt Count 144 L 10/11/19 12:45: Sodium 136, Potassium 4.1, BUN 26 H, Creatinine 4.62 H, Glucose 99, Magnesium 2.1, Total Bilirubin 0.8, AST 56 H, ALT 23, Alkaline Phosphatase 90 Assessment & Plan Physician Review Additional Text: Assessment COVID-19 pneumonia complicated with suspected volume overload Acute on chronic diastolic heart failure with suspected volume overload End-stage renal disease on chronic hemodialysis Tuesday Diabetes mellitus type 2 Hyperlipidemia Hypertension Coronary artery disease Hip Pain Plan COVID-19 pneumonia complicated with suspected volume overload: On Decadron 2 mg IV q.8h. Supplemental oxygen with nasal cannula. DVT prophylaxis with heparin 5000 units subcutaneous once daily. echocardiogram consult nephrology to assist with volume overload as patient does not make urine. Will try to wean off oxygen May need home O2, will get a home O2 assessment Acute on chronic diastolic heart failure with suspected volume overload: Continue as above. End-stage renal disease on chronic hemodialysis Tuesday: Nephrology has been consulted to help manage patient's dialysis needs. Appreciate further input from nephrology. Diabetes mellitus type 2: A.c. HS Accu-Cheks, sliding scale insulin therapy. Will restart home medications. Hyperlipidemia: Continue home medication. Hypertension: continue patient's home medications. And titrate as needed Coronary artery disease: continue patient's home medications. Hip Pain : Will get x-ray of the hip, pain control Disposition : Trying to wean off oxygen Home O2 assessment and possible home O2 placement Possible Dc in a.m. Time Spent Managing Pts Care (In Minutes): 42
--- NOTE | 2019-10-12 15:04 | RAD REPORT ---
EXAM DESCRIPTION: RAD - Hip Bilateral With Pelvis - 10/12/2019 2:52 pm CLINICAL HISTORY: Hip pain FINDINGS: The bones are osteoporotic No fracture or dislocation is seen If patient has clinical symptoms to suggest an occult fracture MRI would be recommended Mild osteoarthritis involves the hips
--- NOTE | 2019-10-12 15:27 | EKG ---
Test Date: 2019-10-11 Test Time: 13:06:21 Pharmacy Services Representative: HELADIO MEASUREMENT RESULTS: Intervals: Rate: 69 SD: 226 QRSD: 86 QT: 446 QTc: 477 [place]: P: 76 SD: 226 QRS: -22 T: 11 INTERPRETIVE STATEMENTS: Sinus rhythm with 1st degree AV block with premature atrial complexes with aberrant conduction Anteroseptal infarct, age undetermined Abnormal ECG Compared to ECG 09/12/2019 17:07:19 Atrial premature complex(es) now present First degree AV block now present Aberrant conduction of supraventricular beat(s) now present Atrial fibrillation no longer present Ventricular premature complex(es) no longer present Right-axis deviation no longer present Myocardial infarct finding still present Electronically Signed On 10-12-19 15:24:27 CDT by Juan Pablo Leroy
[2019-10-12] MEDS: METOPROLOL TAR 50 MG TAB PO SCH ×2 (19:16→22:19)
[2019-10-12] MEDS: ATORVASTATIN 40 MG TAB PO SCH (20:13)
--- NOTE | 2019-10-12 21:50 | P.CNS ---
Date of Consult: 10/12/19 Reason for Consult: ESRD Requesting Physician: Prasanth Matute Chief Complaint: COVID pneumonia, volume overload History of Present Illness: 89 year old female with medical history of end-stage renal disease on hemodialysis, diabetes mellitus type 2, hypertension, CHF, hyperlipidemia, CAD presents emergency department for shortness of breath. Patient was diagnosed with COVID approximately 4 days ago. Daughter reports the patient woke up this morning feeling worse with fever, shortness of breath. Patient is dialysis patient, Tuesday is. Patient did complete dialysis yesterday. Patient was evaluated in the emergency department and found to be hypoxic around 88% on room air. ED provider also specks volume overload. Troponin slightly elevated at 0.12. Patient be admitted for further evaluation and management. 12:49 This 89 yrs old Black Female presents to ER via Wheelchair with complaints of COVID+, jmm Congestion, Fever, Breathing Difficulty. 12:49 The patient or guardian reports cough. Onset: The symptoms/episode began/occurred jmm gradually, 4 day(s) ago. Modifying factors: The symptoms are alleviated by nothing. the symptoms are aggravated by nothing. This is an 89 year old female with a history of ESRD, DM, HTN, CHF that presents to the ED with complaints of cough, congestion, shortness of breath worsening since a diagnosis of COVID-19 earlier this week. Allergies ciprofloxacin Allergy (Verified 02/15/19 22:51) Rash fexofenadine Allergy (Verified 02/15/19 22:51) Rash gatifloxacin Allergy (Verified 02/15/19 22:51) Hives/Rash meperidine [From Demerol] Allergy (Verified 08/05/19 00:13) Nausea/Vomiting Penicillins Allergy (Verified 02/15/19 22:51) Hives/Rash pentazocine [From Talwin] Allergy (Verified 02/15/19 22:51) Unknown sulfamethoxazole [From Bactrim] Allergy (Verified 08/05/19 00:13) Hives trimethoprim [From Bactrim] Allergy (Verified 08/05/19 00:13) Hives Home medications list reviewed: Yes Home Medications: ALPRAZolam [Xanax*] 0.25 mg PO Q6HP PRN 10/11/19 Acetaminophen [Tylenol Extra Strength] 500 mg PO PRN 10/11/19 Aspirin [Aspirin EC 81 MG] 81 mg PO DAILY 10/11/19 Atorvastatin Calcium [Lipitor*] 40 mg PO BEDTIME 10/11/19 Calcium Carbonate [Tums Ultra] 1,000 mg PO BIDWM 10/11/19 Cholecalciferol (Vitamin D3) [Vitamin D3] 5,000 unit PO SEECOM 10/11/19 Clopidogrel Bisulfate [Plavix*] 75 mg PO DAILY 10/11/19 Cranberry Fruit Extract/Vit C [Azo Cranberry Softgel] 2 each PO BID 10/11/19 Cyanocobalamin [Vitamin B-12*] 1,000 mcg PO DAILY 10/11/19 Docusate [Colace Cap*] 100 mg PO BID 10/11/19 Doxazosin Mesylate 8 mg PO BID 10/11/19 Folic Acid/Vit B Complex and C [Dialyvite 800 Chewable Wafer] 800 mcg PO DAILY AT SUPPER 10/11/19 Hydralazine HCl [Apresoline] 50 mg PO BID 10/11/19 Isosorbide Mononitrate [Isosorbide Mononitrate ER] 90 mg PO DAILY 10/11/19 Melatonin 5 mg PO BEDTIME PRN PRN 10/11/19 Metoprolol Tartrate [Lopressor*] 50 mg PO BID 10/11/19 NIFEdipine [Nifedipine ER] 90 mg PO BID 10/11/19 Ramipril [Altace] 10 mg PO BEDTIME 10/11/19 Sertraline [Zoloft*] 50 mg PO BEDTIME 10/11/19 traMADol HCL [Ultram*] 50 mg PO Q6HP PRN 10/11/19 - Past Medical/Surgical History Diabetic: Yes -: DEPRESSION -: CHRONIC KIDNEY DISEASE ON HD -: CAD -: MALIGNANT HYPERTENSION -: HYPERLIPIDEMIA -: AORTIC STENOSIS -: RENAL ARTERY STENOSIS -: DM -: CHF -: ESRD -: STENT PLACEMENT -: gall bladder removed -: R kidney stent placement -: cataract bilateral repair -: left carotid artery repair. -: left AVF -: hysterectomy -: appendectomy Psychosocial/ Personal History: Patient lives at home with her family - Family History Sister Medical History: Heart disease Brother Medical History: Heart disease, Cancer - Social History Smoking Status: Unknown if ever smoked Alcohol use: No CD- Drugs: Yes Caffeine use: Yes Place of Residence: Home Review of Systems 10-point ROS is otherwise unremarkable General: Weakness, Malaise Respiratory: SOB with Excertion Neurological: Weakness Physical Examination Temp Pulse Resp BP Pulse Ox 98.4 F 91 H 18 211/75 H 93 10/12/19 20:00 10/12/19 20:00 10/12/19 20:00 10/12/19 20:00 10/12/19 20:00 General: In no apparent distress, Oriented x3, Cooperative HEENT: Atraumatic Neck: Supple, No LAD Respiratory: Clear to auscultation bilaterally Cardiovascular: No edema, Regular rate/rhythm Gastrointestinal: Soft and benign, Non-distended Musculoskeletal: No clubbing, No contractures Integumentary: No rashes, No cyanosis Neurological: Normal speech Blood work reviewed in the chart. Imagings Data: EXAM DESCRIPTION: MIRTAChest Single View10/11/2019 1:17 pm CLINICAL HISTORY: sob COMPARISON: August 2019 FINDINGS: Moderate bilateral alveolar opacities within the lungs which is somewhat asymmetric. The heart remains enlarged. IMPRESSION: Moderate bilateral alveolar opacities within the lungs. This can be seen with Covid pneumonia EXAM DESCRIPTION: RAD - Hip Bilateral With Pelvis - 10/12/2019 2:52 pm CLINICAL HISTORY: Hip pain FINDINGS: The bones are osteoporotic No fracture or dislocation is seen If patient has clinical symptoms to suggest an occult fracture MRI would be recommended Mild osteoarthritis involves the hips Conclusions/Impression: A/ ESRD on HD HTN with CKD/ CHF. Diastolic CHF, A/C. DM II with CKD. Anemia in CKD. TALIA/ Secondary HyperPTH. COVID19 PNA. P/ Continue current POC and Medications. Acute HD with UF as ordered. Continue steroids. Restart home medications as indicated. Low sodium diet. No NSAIDs. AM labs. Daily weight. Thank you kindly for the consultation.
[2019-10-13] MEDS: dexAMETHasone 4 MG/ML VIAL IV SCH ×3 (00:07→16:18)
[2019-10-13] MEDS ORDERED: HYDRALAZINE HCL 20 MG/ML VIAL IV PRN (00:13)
[2019-10-13 06:23] LABS: Potassium 4.4 mmol/L (3.5-5.1)
[2019-10-13 06:28] LABS: Absolute Lymphocytes (CBC) 0.6 K/uL (0.7-4.9); Basophils % 0.4 % (0-1.3); Hematocrit 31.4 % (36.0-45.0); Lymphocytes % 14.9 % (15.3-44.8); MPV 8.8 fL (7.6-11.3); RBC Red Blood Cell Count 3.43 M/uL (3.86-4.86)
[2019-10-13] MEDS: INSULIN -REGULAR HUMAN 50 UNIT/0.5 ML ML SQ SCH ×4 (07:30→20:18)
[2019-10-13] MEDS: CLOPIDOGREL 75 MG TABLET PO SCH (08:00)
[2019-10-13] MEDS: ASPIRIN EC 81 MG TAB PO SCH (08:02)
[2019-10-13] MEDS: HEPARIN 5000 UNIT/ML 1 ML VIAL SQ SCH ×2 (08:03→20:10)
[2019-10-13] MEDS: HYDRALAZINE HCL 25 MG TABLET PO SCH ×2 (08:09→20:09)
[2019-10-13] MEDS: DOXAZOSIN 4 MG TAB PO SCH ×2 (08:09→20:09)
[2019-10-13] MEDS: ISOSORBIDE MONO 10 MG TAB PO SCH ×2 (08:09→20:10)
--- NOTE | 2019-10-13 09:38 | P.PN ---
Date of Service: 10/13/19 Vital Signs Temp Pulse Resp BP Pulse Ox 98.0 F 76 25 H 188/77 H 96 10/13/19 08:00 10/13/19 08:09 10/13/19 08:00 10/13/19 08:09 10/13/19 08:00 Medications Acetaminophen (Tylenol -Extra Strength) 500 mg PO Q4HP PRN PRN Reason: TEMP > 100' F Stop: 11/10/19 16:20 Aspirin (Aspirin Ec) 81 mg PO DAILY [facility] Stop: 11/11/19 09:01 Last Admin: 10/13/19 08:02 Dose: 81 mg Documented by: Atorvastatin Calcium (Lipitor) 40 mg PO BEDTIME [facility] Stop: 11/10/19 21:01 Last Admin: 10/12/19 20:13 Dose: 40 mg Documented by: Clopidogrel Bisulfate (Plavix) 75 mg PO DAILY [facility] Stop: 11/11/19 09:01 Last Admin: 10/13/19 08:00 Dose: 75 mg Documented by: Dexamethasone (Decadron) 2 mg IV Q8HR [facility] Stop: 11/10/19 17:01 Last Admin: 10/13/19 08:02 Dose: 2 mg Documented by: Doxazosin Mesylate (Cardura) 8 mg PO BID [facility] Stop: 11/10/19 21:01 Last Admin: 10/13/19 08:09 Dose: 8 mg Documented by: Heparin Sodium (Porcine) (Heparin 5,000 Units/Ml) 5,000 unit SQ Q12HR [facility] Stop: 11/10/19 21:01 Last Admin: 10/13/19 08:03 Dose: 5,000 unit Documented by: Heparin Sodium (Porcine) (Heparin 1,000 Units/Ml) 6,000 unit IV EVERY HD PRN PRN Reason: AFTER EACH Stop: 11/10/19 21:34 Hydralazine HCl (Apresoline) 50 mg PO BID [facility] Stop: 11/10/19 21:01 Last Admin: 10/13/19 08:09 Dose: 50 mg Documented by: Hydralazine HCl (Apresoline) 10 mg IV Q6HP PRN PRN Reason: HTN Stop: 11/12/19 00:14 Albumin Human (Albumin 25%) 50 mls @ 100 mls/hr IV EVERY HD [facility] Stop: 11/10/19 22:01 Insulin Human Regular (Novolin -R) 0 unit SQ ACHS [facility]; Protocol Stop: 11/10/19 16:31 Last Admin: 10/13/19 07:30 Dose: Not Given Documented by: Isosorbide Mononitrate (Ismo 10 Mg Tab) 30 mg PO BID [facility] Stop: 11/10/19 21:01 Last Admin: 10/13/19 08:09 Dose: 30 mg Documented by: Mannitol (Mannitol 12.5 Gm/50 Ml Vial) 12.5 gm IV EVERY HD PRN PRN Reason: Titrate to SBP (MUST DEFINE) Stop: 11/10/19 21:34 Metoprolol [facility] ([facility]) [facility] Stop: 11/10/19 16:20 Last Admin: 10/12/19 22:19 Dose: 50 mg Documented by: Ondansetron HCl (Zofran) 4 mg IV Q6HP PRN PRN Reason: NAUSEA / VOMITING Stop: 11/10/19 16:20 Sodium Chloride (Normal Saline Flush) 10 ml IV BID [facility] Stop: 11/10/19 21:01 Last Admin: 10/13/19 08:04 Dose: 10 ml Documented by: Tramadol HCl (Ultram) 50 mg PO Q6H PRN PRN Reason: Pain scale 5-7 (Moderate) Stop: 11/10/19 22:23 Last Admin: 10/12/19 09:28 Dose: 50 mg Documented by: Microbiology Results 10/11/19 13:05 Blood - Blood Aerobic Blood Culture - Preliminary No growth in 24 hours. 10/11/19 13:05 Blood - Blood Anaerobic Blood Culture - Preliminary No growth in 24 hours. 10/11/19 12:45 Blood - Blood Aerobic Blood Culture - Preliminary No growth in 24 hours. 10/11/19 12:45 Blood - Blood Anaerobic Blood Culture - Preliminary No growth in 24 hours. Assessment/ Plan: Nephrology Feeling better today. Weakness and fatigue. Poor appetite. No acute events overnight. Vitals, medications, blood work and imaging reviewed in the chart. General: In no apparent distress, Oriented x3, Cooperative HEENT: Atraumatic Neck: Supple, No LAD Respiratory: Clear to auscultation bilaterally Cardiovascular: No edema, Regular rate/rhythm Gastrointestinal: Soft and benign, Non-distended Musculoskeletal: No clubbing, No contractures Integumentary: No rashes, No cyanosis Neurological: Normal speech Blood work reviewed in the chart. Imagings Data: EXAM DESCRIPTION: Joy Single View10/11/2019 1:17 pm CLINICAL HISTORY: sob COMPARISON: August 2019 FINDINGS: Moderate bilateral alveolar opacities within the lungs which is somewhat asymmetric. The heart remains enlarged. IMPRESSION: Moderate bilateral alveolar opacities within the lungs. This can be seen with Covid pneumonia EXAM DESCRIPTION: RAD - Hip Bilateral With Pelvis - 10/12/2019 2:52 pm CLINICAL HISTORY: Hip pain FINDINGS: The bones are osteoporotic No fracture or dislocation is seen If patient has clinical symptoms to suggest an occult fracture MRI would be recommended Mild osteoarthritis involves the hips Conclusions/Impression: A/ ESRD on HD HTN with CKD/ CHF. Diastolic CHF, A/C. DM II with CKD. Anemia in CKD. TALIA/ Secondary HyperPTH. COVID19 PNA. P/ Continue current POC and Medications. Next HD Tuesday. Continue steroids. Restart Nifedipine ER. Increase Metoprolol as needed. Low sodium diet. Encourage nutrition. No NSAIDs. AM labs. Daily weight.
[2019-10-13] MEDS: ACETAMINOPHEN 500 MG TAB PO PRN (09:59)
--- NOTE | 2019-10-13 10:58 | P.PN ---
Subjective Date of Service: 10/13/19 Chief Complaint: COVID pneumonia, volume overload Subjective: No new changes Physical Examination - Vital Signs Temperature: 101.0 F Blood Pressure: 188/77 Pulse: 76 Respirations: 25 Pulse Ox (%): 96 - Physical Exam General: Alert, Mild distress HEENT: Atraumatic, Normocephalic Neck: Supple Respiratory: Diminished, Crackles/rales Cardiovascular: Regular rate/rhythm, Normal S1 S2 Capillary refill: <2 Seconds Gastrointestinal: Soft and benign, W/out hepatosplenomegaly Musculoskeletal: No swelling Neurological: Normal speech, Normal strength at 5/5 x4 extr Lymphatics: No axilla or inguinal lymphadenopathy - Studies Laboratory Data (last 24 hrs) 10/13/19 05:15: Sodium 136, Potassium 4.4, BUN 22 H, Creatinine 3.85 H D, Glucose 120 H 10/13/19 05:15: WBC 3.9 L D, Hgb 10.5 L, Hct 31.4 L, Plt Count 127 L Assessment & Plan Physician Review Additional Text: Assessment COVID-19 pneumonia complicated with suspected volume overload Acute on chronic diastolic heart failure with suspected volume overload End-stage renal disease on chronic hemodialysis Tuesday Diabetes mellitus type 2 Hyperlipidemia Hypertension Coronary artery disease Hip Pain Plan COVID-19 pneumonia complicated with suspected volume overload: On Decadron 2 mg IV q.8h. Supplemental oxygen with nasal cannula. DVT prophylaxis with heparin Appreciate help from nephrology Will try to wean off oxygen Acute on chronic diastolic heart failure with suspected volume overload: Continue as above. End-stage renal disease on chronic hemodialysis Tuesday: Continue dialysis Appreciate help from nephrology. Diabetes mellitus type 2: A.c. HS Accu-Cheks, sliding scale insulin therapy. Continue home medications and titrate as needed Hyperlipidemia: Continue home medication. Hypertension: continue patient's home medications. And titrate as needed Coronary artery disease: continue patient's home medications. Hip Pain : x-ray of the hip showed bilateral hip arthritis, pain control Disposition : Trying to wean off oxygen Repeat x-ray shows partial clearing appreciate help from the consult Dc home when more stable Time Spent Managing Pts Care (In Minutes): 42
[2019-10-13] MEDS: NIFEDIPINE XL 90 MG TABLET PO SCH ×2 (12:02→20:09)
--- NOTE | 2019-10-13 13:32 | RAD REPORT ---
EXAM DESCRIPTION: RAD - Chest Single View - 10/13/2019 11:45 am CLINICAL HISTORY: sob COMPARISON: Portable chest October 10 TECHNIQUE: AP portable chest image was obtained 10/13/2019 11:45 am . FINDINGS: Bilateral airspace opacification is present improved from prior imaging. Interstitial thic kening remains. Right hemidiaphragm remains elevated. Stable cardiomegaly is present. Stable vascular engorgement seen. No pneumothorax or enlarging pleural effusion. No acute bony abnormality seen. No acute aortic findings suspected. IMPRESSION: Partial clearing of the bilateral edema or infiltrate pattern.
[2019-10-13] MEDS: TRAMADOL HCL 50 MG TAB PO PRN (16:35)
[2019-10-13] MEDS: ATORVASTATIN 40 MG TAB PO SCH (20:09)
[2019-10-14] MEDS: dexAMETHasone 4 MG/ML VIAL IV SCH ×3 (00:02→16:00)
[2019-10-14] MEDS: TRAMADOL HCL 50 MG TAB PO PRN (05:10)
[2019-10-14] MEDS: INSULIN -REGULAR HUMAN 50 UNIT/0.5 ML ML SQ SCH ×4 (07:30→20:09)
[2019-10-14] MEDS: HEPARIN 5000 UNIT/ML 1 ML VIAL SQ SCH ×2 (08:24→19:49)
[2019-10-14] MEDS: DOXAZOSIN 4 MG TAB PO SCH ×2 (08:25→19:49)
[2019-10-14] MEDS: CLOPIDOGREL 75 MG TABLET PO SCH (08:25)
[2019-10-14] MEDS: NIFEDIPINE XL 90 MG TABLET PO SCH ×2 (08:25→19:49)
[2019-10-14] MEDS: HYDRALAZINE HCL 25 MG TABLET PO SCH ×2 (08:25→19:50)
[2019-10-14] MEDS: ASPIRIN EC 81 MG TAB PO SCH (08:25)
[2019-10-14] MEDS: ISOSORBIDE MONO 10 MG TAB PO SCH ×2 (08:26→19:50)
[2019-10-14 08:59] LABS: Absolute Lymphocytes (CBC) 0.5 K/uL (0.7-4.9); Basophils % 0.6 % (0-1.3); Hematocrit 32.2 % (36.0-45.0); Lymphocytes % 13.3 % (15.3-44.8); RBC Red Blood Cell Count 3.51 M/uL (3.86-4.86)
[2019-10-14 09:22] LABS: Albumin 2.5 g/dL (3.4-5.0); Bilirubin Total 0.6 mg/dL (0.2-1.0); Potassium 4.4 mmol/L (3.5-5.1)
--- NOTE | 2019-10-14 11:30 | P.PN ---
Subjective Date of Service: 10/14/19 Chief Complaint: COVID pneumonia, volume overload Subjective: No new changes Review of Systems 10-point ROS is otherwise unremarkable Physical Examination - Vital Signs Temperature: 97 F Blood Pressure: 134/62 Pulse: 82 Respirations: 26 Pulse Ox (%): 94 - Physical Exam General: Alert, In no apparent distress HEENT: Atraumatic, Normocephalic Neck: Supple Respiratory: Clear to auscultation bilaterally Cardiovascular: Regular rate/rhythm Capillary refill: <2 Seconds Gastrointestinal: Soft and benign Musculoskeletal: No clubbing, No swelling Integumentary: No rashes Neurological: Normal speech, Normal strength at 5/5 x4 extr Lymphatics: No axilla or inguinal lymphadenopathy Assessment & Plan Physician Review Additional Text: Assessment COVID-19 pneumonia complicated with suspected volume overload Acute on chronic diastolic heart failure with suspected volume overload End-stage renal disease on chronic hemodialysis Tuesday Diabetes mellitus type 2 Hyperlipidemia Hypertension Coronary artery disease Hip Pain Plan COVID-19 pneumonia complicated with suspected volume overload: On Decadron 2 mg IV q.8h. Supplemental oxygen with nasal cannula. DVT prophylaxis with heparin Appreciate help from nephrology Will try to wean off oxygen Acute on chronic diastolic heart failure with suspected volume overload: Continue as above. End-stage renal disease on chronic hemodialysis Tuesday: Continue dialysis Appreciate help from nephrology. Diabetes mellitus type 2: A.c. HS Accu-Cheks, sliding scale insulin therapy. Continue home medications and titrate as needed Hyperlipidemia: Continue home medication. Hypertension: continue patient's home medications. And titrate as needed Coronary artery disease: continue patient's home medications. Hip Pain : x-ray of the hip showed bilateral hip arthritis, pain control Disposition : Trying to wean off oxygen Repeat x-ray shows partial clearing appreciate help from the consult Dc home when more stable Time Spent Managing Pts Care (In Minutes): 45
[2019-10-14] MEDS ORDERED: DOXAZOSIN 2 MG TAB ONE (19:29)
[2019-10-14] MEDS: ATORVASTATIN 40 MG TAB PO SCH (19:50)
[2019-10-15] MEDS: dexAMETHasone 4 MG/ML VIAL IV SCH ×3 (00:30→16:08)
[2019-10-15] MEDS ORDERED: DOXAZOSIN 2 MG TAB ONE (07:14)
[2019-10-15] MEDS: INSULIN -REGULAR HUMAN 50 UNIT/0.5 ML ML SQ SCH ×4 (07:26→20:07)
[2019-10-15] MEDS: HEPARIN 5000 UNIT/ML 1 ML VIAL SQ SCH ×3 (07:27→21:00)
[2019-10-15] MEDS: DOXAZOSIN 4 MG TAB PO SCH ×2 (07:27→20:30)
[2019-10-15] MEDS: ASPIRIN EC 81 MG TAB PO SCH (07:28)
[2019-10-15] MEDS: ISOSORBIDE MONO 10 MG TAB PO SCH ×2 (07:28→20:30)
[2019-10-15] MEDS: NIFEDIPINE XL 90 MG TABLET PO SCH ×2 (07:28→20:30)
[2019-10-15] MEDS: HYDRALAZINE HCL 25 MG TABLET PO SCH ×2 (07:29→20:30)
[2019-10-15] MEDS: CLOPIDOGREL 75 MG TABLET PO SCH (07:29)
--- NOTE | 2019-10-15 08:55 | ECHO ---
HEIGHT: 5 ft 5 in WEIGHT: 153 lb 0 oz DATE OF STUDY: 10/12/[address]: Tc Jernigan NP 2-DIMENSIONAL: YES M.MODE: YES DOPPLER: YES COLOR FLOW: YES TDS: NO PORTABLE: NO DEFINITY: NO BUBBLE STUDY: NO DIAGNOSIS: CONGESTIVE HEART FAILURE CARDIAC HISTORY: CATHERIZATION: SURGERY: PROSTHETIC VALVE: PACEMAKER: MEASUREMENTS (cm) DIASTOLIC (NORMALS) SYSTOLIC (NORMALS) IVSd 1.0 (0.6-1.2) LA Diam 4.5 (1.9-4.0) LVEF 73% LVIDd 4.5 (3.5-5.7) LVIDs 2.7 (2.0-3.5) %FS 42% LVPWd 0.9 (0.6-1.2) Ao Diam 2.2 (2.0-3.7) 2 DIMENSIONAL ASSESSMENT: RIGHT ATRIUM: DILATED LEFT ATRIUM: DILATED RIGHT VENTRICLE: DILATED LEFT VENTRICLE: NORMAL SIZE TRICUSPID VALVE: NORMAL MITRAL VALVE: MITRAL ANNULAR CALCIFICATION PULMONIC VALVE: NORMAL AORTIC VALVE: SCLEROSIS PERICARDIAL EFFUSION: TRACE AORTIC ROOT: NORMAL LEFT VENTRICULAR WALL MOTION: NORMAL DOPPLER/COLOR FLOW: MODERATE PULMONARY HYPERTENSION. RIGHT VENTRICULAR SYSTOLIC PRESSURE 53 mmHg. MILD TRICUSPID REGURGITATION. COMMENTS: NORMAL LEFT VENTRICULAR SIZE AND FUNCTION. DILATED RIGHT ATRIUM AND RIGHT VENTRICLE WITH MODERATE PULMONARY HYPERTENSION. RIGHT VENTRICULAR SYSTOLIC PRESSURE 53 mmHg. MILD TRICUSPID REGURGITATION. MITRAL ANNULAR CALCIFICATION. AORTIC SCLEROSIS WITH NO STENOSIS. TECHNOLOGIST: Yanira ESCOBAR
--- NOTE | 2019-10-15 10:40 | P.DS ---
Admission Date: 10/13/19 Discharge Date: 10/15/19 Disposition: ROUTINE DISCHARGE Discharge Condition: FAIR Reason for Admission: COVID pneumonia, volume overload Brief History of Present Illness: 89 year old female with medical history of end-stage renal disease on hemodialysis, diabetes mellitus type 2, hypertension, CHF, hyperlipidemia, CAD presents emergency department for shortness of breath. Patient was diagnosed with COVID approximately 4 days ago. Daughter reports the patient woke up this morning feeling worse with fever, shortness of breath. Patient is dialysis patient, Tuesday is. Patient did complete dialysis yesterday. Patient was evaluated in the emergency department and found to be hypoxic around 88% on room air. ED provider also specks volume overload. Troponin slightly elevated at 0.12. Patient be admitted for further evaluation and management. Hospital Course: COVID-19 pneumonia complicated with suspected volume overload Acute on chronic diastolic heart failure with suspected volume overload End-stage renal disease on chronic hemodialysis Tuesday Diabetes mellitus type 2 Hyperlipidemia Hypertension Coronary artery disease Hip Pain The patient was admitted and was monitor closely under telemetry. Started on IV steroids along with supplemental oxygen and anticoagulation as well. Nephrology was also consulted for dialysis. Patient also had IV diuretics to help with the volume overload, underwent dialysis, Treated with insulin sliding scale Continued home medications and titrate as needed x-ray of the hip showed bilateral hip arthritis,and was treated with pain control Repeat x-ray of the chest showed partial clearing Patient wanted go home and is being discharged home today in a stable condition with advice to follow up with PCP in 1 week and also with nephrology in 1 week. Vital Signs/Physical Exam: Temp Pulse Resp BP Pulse Ox 98.3 F 77 20 144/62 H 96 10/15/19 08:00 10/15/19 08:00 10/15/19 08:00 10/15/19 08:00 10/15/19 08:00 General: Alert, In no apparent distress HEENT: Atraumatic, Normocephalic Neck: Supple Respiratory: Clear to auscultation bilaterally Cardiovascular: Regular rate/rhythm, Normal S1 S2 Capillary refill: <2 Seconds Gastrointestinal: Soft and benign, W/out hepatosplenomegaly Musculoskeletal: No clubbing, No swelling Integumentary: No rashes Neurological: Normal speech, Normal strength at 5/5 x4 extr Lymphatics: No axilla or inguinal lymphadenopathy Laboratory Data at Discharge: WBC 3.8 K/uL (4.3-10.9) L 10/14/19 07:30 Hgb 10.7 g/dL (12.0-15.0) L 10/14/19 07:30 Hct 32.2 % (36.0-45.0) L 10/14/19 07:30 Plt Count 129 K/uL (152-406) L 10/14/19 07:30 PT 12.3 SECONDS (9.5-12.5) 10/11/19 12:45 INR 1.04 10/11/19 12:45 Sodium 135 mmol/L (136-145) L 10/14/19 07:30 Potassium 4.4 mmol/L (3.5-5.1) 10/14/19 07:30 BUN 36 mg/dL (7-18) H 10/14/19 07:30 Creatinine 4.96 mg/dL (0.55-1.3) H D 10/14/19 07:30 Glucose 109 mg/dL (74-106) H 10/14/19 07:30 Magnesium 2.1 mg/dL (1.8-2.4) 10/12/19 05:20 Total Bilirubin 0.6 mg/dL (0.2-1.0) 10/14/19 07:30 AST 79 U/L (15-37) H 10/14/19 07:30 ALT 43 U/L (12-78) 10/14/19 07:30 Alkaline Phosphatase 79 U/L (45-117) 10/14/19 07:30 Troponin I 0.07 ng/mL (0.0-0.045) H 10/12/19 09:22 Home Medications: ALPRAZolam [Xanax*] 0.25 mg PO Q6HP PRN 10/11/19 Acetaminophen [Tylenol Extra Strength] 500 mg PO PRN 10/11/19 Aspirin [Aspirin EC 81 MG] 81 mg PO DAILY 10/11/19 Atorvastatin Calcium [Lipitor*] 40 mg PO BEDTIME 10/11/19 Calcium Carbonate [Tums Ultra] 1,000 mg PO BIDWM 10/11/19 Cholecalciferol (Vitamin D3) [Vitamin D3] 5,000 unit PO SEECOM 10/11/19 Clopidogrel Bisulfate [Plavix*] 75 mg PO DAILY 10/11/19 Cranberry Fruit Extract/Vit C [Azo Cranberry Softgel] 2 each PO BID 10/11/19 Cyanocobalamin [Vitamin B-12*] 1,000 mcg PO DAILY 10/11/19 Docusate [Colace Cap*] 100 mg PO BID 10/11/19 Doxazosin Mesylate 8 mg PO BID 10/11/19 Folic Acid/Vit B Complex and C [Dialyvite 800 Chewable Wafer] 800 mcg PO DAILY [facility] 10/11/19 Hydralazine HCl [Apresoline] 50 mg PO BID 10/11/19 Isosorbide Mononitrate [Isosorbide Mononitrate ER] 90 mg PO DAILY 10/11/19 Melatonin 5 mg PO BEDTIME PRN PRN 10/11/19 Metoprolol Tartrate [Lopressor*] 50 mg PO BID 10/11/19 NIFEdipine [Nifedipine ER] 90 mg PO BID 10/11/19 Ramipril [Altace] 10 mg PO BEDTIME 10/11/19 Sertraline [Zoloft*] 50 mg PO BEDTIME 10/11/19 traMADol HCL [Ultram*] 50 mg PO Q6HP PRN 10/11/19 predniSONE [Deltasone] 20 mg PO BID #14 tab 10/15/19 New Medications: predniSONE [Deltasone] 20 mg PO BID #14 tab Diet: Renal Time spent managing pt's care (in minutes): 39
[2019-10-15] MEDS: ACETAMINOPHEN 500 MG TAB PO PRN (12:40)
[2019-10-15] MEDS: ATORVASTATIN 40 MG TAB PO SCH (20:30)
[2019-10-15 20:36] VITALS: TEMP 97
--- NOTE | 2019-10-15 21:11 | P.PN ---
Date of Service: 10/15/19 Vital Signs Temp Pulse Resp BP Pulse Ox 97.0 F 84 22 H 176/64 H 98 10/15/19 20:00 10/15/19 20:00 10/15/19 20:00 10/15/19 20:00 10/15/19 20:00 Medications Acetaminophen (Tylenol -Extra Strength) 500 mg PO Q4HP PRN PRN Reason: TEMP > 100' F Stop: 11/10/19 16:20 Last Admin: 10/15/19 12:40 Dose: 500 mg Documented by: Aspirin (Aspirin Ec) 81 mg PO DAILY [facility] Stop: 11/11/19 09:01 Last Admin: 10/15/19 07:28 Dose: 81 mg Documented by: Atorvastatin Calcium (Lipitor) 40 mg PO BEDTIME [facility] Stop: 11/10/19 21:01 Last Admin: 10/15/19 20:30 Dose: 40 mg Documented by: Clopidogrel Bisulfate (Plavix) 75 mg PO DAILY [facility] Stop: 11/11/19 09:01 Last Admin: 10/15/19 07:29 Dose: 75 mg Documented by: Dexamethasone (Decadron) 2 mg IV Q8HR [facility] Stop: 11/10/19 17:01 Last Admin: 10/15/19 16:08 Dose: 2 mg Documented by: Doxazosin Mesylate (Cardura) 8 mg PO BID [facility] Stop: 11/10/19 21:01 Last Admin: 10/15/19 20:30 Dose: 8 mg Documented by: Heparin Sodium (Porcine) (Heparin 5,000 Units/Ml) 5,000 unit SQ Q12HR [facility] Stop: 11/10/19 21:01 Last Admin: 10/15/19 20:45 Dose: 5,000 unit Documented by: Heparin Sodium (Porcine) (Heparin 1,000 Units/Ml) 6,000 unit IV EVERY HD PRN PRN Reason: AFTER EACH Stop: 11/10/19 21:34 Hydralazine HCl (Apresoline) 50 mg PO BID [facility] Stop: 11/10/19 21:01 Last Admin: 10/15/19 20:30 Dose: 50 mg Documented by: Hydralazine HCl (Apresoline) 10 mg IV Q6HP PRN PRN Reason: HTN Stop: 11/12/19 00:14 Albumin Human (Albumin 25%) 50 mls @ 100 mls/hr IV EVERY HD [facility] Stop: 11/10/19 22:01 Insulin Human Regular (Novolin -R) 0 unit SQ ACHS [facility]; Protocol Stop: 11/10/19 16:31 Last Admin: 10/15/19 20:07 Dose: Not Given Documented by: Isosorbide Mononitrate (Ismo 10 Mg Tab) 30 mg PO BID [facility] Stop: 11/13/19 21:01 Last Admin: 10/15/19 20:30 Dose: 30 mg Documented by: Mannitol (Mannitol 12.5 Gm/50 Ml Vial) 12.5 gm IV EVERY HD PRN PRN Reason: Titrate to SBP (MUST DEFINE) Stop: 11/10/19 21:34 Metoprolol Tartrate (Lopressor) 50 mg PO SEECOM [facility] Stop: 11/10/19 16:20 Last Admin: 10/12/19 22:19 Dose: 50 mg Documented by: Nifedipine (Procardia Xl) 90 mg PO BID [facility] Stop: 11/13/19 21:01 Last Admin: 10/15/19 20:30 Dose: 90 mg Documented by: Ondansetron HCl (Zofran) 4 mg IV Q6HP PRN PRN Reason: NAUSEA / VOMITING Stop: 11/10/19 16:20 Sodium Chloride (Normal Saline Flush) 10 ml IV BID [facility] Stop: 11/10/19 21:01 Last Admin: 10/15/19 20:30 Dose: 10 ml Documented by: Tramadol HCl (Ultram) 50 mg PO Q6H PRN PRN Reason: Pain scale 5-7 (Moderate) Stop: 11/10/19 22:23 Last Admin: 10/14/19 05:10 Dose: 50 mg Documented by: Microbiology Results 10/11/19 13:05 Blood - Blood Aerobic Blood Culture - Preliminary No growth in 24 hours. 10/11/19 13:05 Blood - Blood Anaerobic Blood Culture - Preliminary No growth in 24 hours. 10/11/19 12:45 Blood - Blood Aerobic Blood Culture - Preliminary No growth in 24 hours. 10/11/19 12:45 Blood - Blood Anaerobic Blood Culture - Preliminary No growth in 24 hours. Assessment/ Plan: Nephrology Mild malaise. Weakness and fatigue. Poor appetite. No acute events overnight. Vitals, medications, blood work and imaging reviewed in the chart. General: In no apparent distress, Oriented x3, Cooperative HEENT: Atraumatic Neck: Supple, No LAD Respiratory: Clear to auscultation bilaterally Cardiovascular: No edema, Regular rate/rhythm Gastrointestinal: Soft and benign, Non-distended Musculoskeletal: No clubbing, No contractures Integumentary: No rashes, No cyanosis Neurological: Normal speech Blood work reviewed in the chart. Imagings Data: EXAM DESCRIPTION: RADChest Single View10/11/2019 1:17 pm CLINICAL HISTORY: sob COMPARISON: August 2019 FINDINGS: Moderate bilateral alveolar opacities within the lungs which is somewhat asymmetric. The heart remains enlarged. IMPRESSION: Moderate bilateral alveolar opacities within the lungs. This can be seen with Covid pneumonia EXAM DESCRIPTION: RAD - Hip Bilateral With Pelvis - 10/12/2019 2:52 pm CLINICAL HISTORY: Hip pain FINDINGS: The bones are osteoporotic No fracture or dislocation is seen If patient has clinical symptoms to suggest an occult fracture MRI would be recommended Mild osteoarthritis involves the hips Conclusions/Impression: A/ ESRD on HD Hyponatremia. HTN with CKD/ CHF. Diastolic CHF, A/C. DM II with CKD. Anemia in CKD. TALIA/ Secondary HyperPTH. COVID19 PNA. P/ Continue current POC and Medications. Acute HD today. Next HD Tuesday. Continue steroids. Increase Metoprolol as needed. Low sodium diet. Encourage nutrition. No NSAIDs. AM labs PRN. Daily weight.
[2019-10-15] MEDS ORDERED: EPOETIN ALFA 10,000 UNIT/ML VIAL SQ ONE (21:30)
[2019-10-15 22:23] VITALS: O2SAT 95
[2019-10-15 22:45] VITALS: BP 130/70
== END 2019-10-15 22:30 | disposition home or self-care (01) | DRG 177 ==
LOC: ER 12:18 → ERHOLD 15:29 → 4TH 16:17 → OBSVTOIN 10-13 10:54
PROVIDERS: ADMIT Family Medicine; ATTEND Family Medicine
PROC: 5A1D70Z Performance of Urinary Filtration, Intermittent, Less than 6 Hours Per Day (ICD-10-PCS; principal; 2019-10-15)
DX: U07.1 COVID-19 (principal); J12.89 Other viral pneumonia; N18.6 End stage renal disease; I50.33 Acute on chronic diastolic (congestive) heart failure; I13.2 Hypertensive heart and chronic kidney disease with heart failure and with stage 5 chronic kidney disease, or end stage renal disease; N25.81 Secondary hyperparathyroidism of renal origin; E87.1 Hypo-osmolality and hyponatremia; E11.22 Type 2 diabetes mellitus with diabetic chronic kidney disease; D63.1 Anemia in chronic kidney disease; N25.0 Renal osteodystrophy; M16.0 Bilateral primary osteoarthritis of hip; E78.5 Hyperlipidemia, unspecified; I25.10 Atherosclerotic heart disease of native coronary artery without angina pectoris; R09.02 Hypoxemia; Z99.2 Dependence on renal dialysis; Z90.710 Acquired absence of both cervix and uterus; Z90.49 Acquired absence of other specified parts of digestive tract; Z88.1 Allergy status to other antibiotic agents; Z88.5 Allergy status to narcotic agent; Z88.0 Allergy status to penicillin; Z88.8 Allergy status to other drugs, medicaments and biological substances; Z79.82 Long term (current) use of aspirin; Z79.02 Long term (current) use of antithrombotics/antiplatelets; Z79.899 Other long term (current) drug therapy
CPT/HCPCS: 36415; 71045; 73521; 80048; 80053; 80076; 82947; 83605; 83735; 83880; 84145; 84484; 85025; 85610; 87040; 90935; 93005; 93306; 99285; G0378; J1644; Q5105